=== PATIENT | female | born 1960 | race Caucasian/White ===

== ENCOUNTER → 2017-03-20 | Outpatient (CLI) | payer OTHER ==
--- NOTE | 2017-03-20 14:41 | NM ---
EXAMINATION TYPE: NM bone scan whole body DATE OF EXAM: 03/20/2017 COMPARISON: NONE HISTORY: pain. Diagnosis: pain in left shoulder. left shoulder sprain. 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 rule out pathologic left clavicle fracture Delayed whole-body scanning was performed following the injection of 25.3 mCi Tc 99m MDP. Images acq uired 3 hours post injection. FINDINGS: There is increased radiotracer accumulation involving the mid left clavicle compatible with the site of fracture. Findings are indeterminate for cause of fracture such as underlying pathologic component . There is focal increased uptake noted to involve the anterior right rib 6 compatible with acute fra cture. Uptake overlying the left superior pubic ramus could be related to activity within the urinary bladder versus additional fracture. Correlate clinically. Degenerative uptake is seen about the mid thoracic and lower lumbar spine as well as the shoulders, sternoclavicular joints and bilateral ankle s and feet. IMPRESSION: 1. Nonspecific uptake involving the mid left clavicle compatible with the fracture site. 2. Additional fractures suspected involving right rib 6. 3. Uptake overlying the left superior pubic ramus could be related to activity within the urinary summer dder versus additional fracture. Correlate clinically.
== END ==
LOC: RADNMMAIN 10:09
PROVIDERS: ATTEND Orthopaedic Surgery Hand Surgery
DX: S43.402A Unspecified sprain of left shoulder joint, initial encounter (principal)
CPT/HCPCS: 78306; A9503

== ENCOUNTER → 2017-03-27 | Outpatient (CLI) | payer OTHER ==
--- NOTE | 2017-03-27 11:29 | MR ---
EXAMINATION TYPE: MR clavicle LT wo con DATE OF EXAM: 03/27/2017 COMPARISON: Outside radiographs of the left clavicle and nuclear medicine bone scan dated 03/20/2017. HISTORY: fx of unspecified part of lt clavicle. Palpable abnormality. TECHNIQUE: Multiplanar, multisequence images of the left clavicle was performed without intravenous contrast. FINDINGS: The palpable abnormality corresponds to the known noncomminuted, obliquely oriented midshaft clavicul ar fracture as seen on the outside radiographs. There is approximately 6 mm inferior displacement of the distal fracture fragment and 8 mm anterior displacement. Moderate acromioclavicular joint arthrop athy is noted as capsular hypertrophy, marginal osteophytes, and subchondral cyst. Flow-void of the s ubclavian artery is maintained. Flow-void of the subclavian vein is only partially visualized but tess ntain towards the clavicular head. Glenohumeral joint space is maintained. No evidence of bone marrow edema within the visualized humeral head or scapula. Surrounding T1 hypointense and T2 hyperintense edema seen within the subcutaneous tissues of the left supraclavicular and infraclavicular region surrounding the fracture site. Bone marrow edema is also seen at the fracture site. No intramuscular edema is seen of the pectoralis muscles. Left apical consolidation is identified containing air bronchograms as well as groundglass opacities within the inferior field of view in the anterior left upper lobe on the axial T1 weighted sequence. IMPRESSION: 1. Palpable abnormality corresponds to the known displaced midclavicular fracture. Flow-void of the s ubclavian artery is maintained and flow-void of the subclavian vein is only partially visualized but maintained near the clavicular head. Soft tissue swelling is present locally surrounding the fracture site as well as bone marrow edema. 2. Left apical pulmonary consolidation which could relate to pulmonary contusion or airspace disease. Correlation with chest radiograph or CT thorax is recommended to ensure no underlying mass. 3. No pulmonary edema or identifiable fracture within the remaining visualized osseous structures.
== END | disposition home or self-care (01) ==
LOC: RADMRIMAIN 06:54
PROVIDERS: ATTEND Orthopaedic Surgery Hand Surgery
DX: S42.022A Displaced fracture of shaft of left clavicle, initial encounter for closed fracture (principal); J18.1 Lobar pneumonia, unspecified organism; M85.88 Other specified disorders of bone density and structure, other site
CPT/HCPCS: 71550

== ENCOUNTER → 2017-04-02 | Outpatient (CLI) | payer OTHER ==
[2017-04-02 12:30] LABS: Basophils % (A) 1 %; CH 33.8; CHCM 31.9; Eosinophils # (A) 0.2 k/uL (0-0.7); Eosinophils % (A) 2 %; HCT 44.3 % (34.0-46.0); HDW 2.06; Luc # (Auto) 0.14; Luc % (Auto) 2; Lymphocytes # (A) 1.4 k/uL (1.0-4.8); Lymphocytes % (A) 18 %; MCH 33.7 pg (25.0-35.0); MCHC 31.6 g/dL (31.0-37.0); MCV 106.5 fL (80.0-100.0); Macrocytosis Slight; Mean Platelet Volume 7.6; Monocytes # (A) 0.3 k/uL (0-1.0); Monocytes % (A) 4 %; Neutrophils # (A) 5.7 k/uL (1.3-7.7); Neutrophils % (A) 73 %; RBC 4.16 m/uL (3.80-5.40); RDW 12.7 % (11.5-15.5); WBC 7.8 k/uL (3.8-10.6); WBC (Perox) 7.98
[2017-04-02 13:06] LABS: ALT 31 U/L (9-52); AST 23 U/L (14-36); Alkaline Phosphatase 88 U/L (38-126); Anion Gap 9 mmol/L; Blood Urea Nitrogen 12 mg/dL (7-17); Calcium 9.7 mg/dL (8.4-10.2); Carbon Dioxide 30 mmol/L (22-30); Chloride 101 mmol/L (98-107); Glucose 115 mg/dL (74-99); Non-African American GFR(MDRD) >60 (>60 ml/min/1.73 sqM); Potassium 5.1 mmol/L (3.5-5.1); Sodium 140 mmol/L (137-145); Total Bilirubin 0.6 mg/dL (0.2-1.3); Total Protein 7.1 g/dL (6.3-8.2)
== END | disposition home or self-care (01) ==
LOC: LABWHC1 11:11
PROVIDERS: ATTEND Otolaryngology Otolaryngic Allergy
DX: D80.5 Immunodeficiency with increased immunoglobulin M [IgM] (principal); R80.3 Bence Jones proteinuria
CPT/HCPCS: 36415; 80053; 84165; 85025; 86334

== ENCOUNTER → 2017-05-14 | Outpatient (CLI) | payer OTHER ==
--- NOTE | 2017-05-14 19:30 | CT ---
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 Lung lesion and broken left clav icle. CT DLP: 315.30 mGycm Automated exposure control for dose reduction was used. CONTRAST: CT scan of the neck is performed following with IV Contrast, patient injected with 100 mL of Omnipaqu e 300. Axial images are obtained, coronal and sagittal reformatted images are reviewed. FINDINGS: There is some reticular infiltrates in calcification at the lung apices consistent with scarring. The trachea is midline. Thyroid gland is fairly symmetric. There is surgery on the left side with absenc e of the left jugular vein. There is normal contrast opacification of the vertebral arteries and mauro tid arteries. There is patency of the right jugular vein. Subglottic trachea appears normal. I see no pharyngeal mass. Epiglottis appears normal. The tonsils and adenoids appear normal. The tongue appears fairly symmetri c. I see no evidence of a tongue mass. The mandibular ring is intact. Cervical spine is intact. There is lucency around the lower tooth posteriorly in the left hemimandible consistent with significant elliott odontal disease. I see no mandible fracture. There is absence of left sternocleidomastoid muscle. The re is significant atrophy of the right parotid gland. Right submandibular salivary gland show signifi cant atrophy. There has been apparent resection of the left parotid gland and left submandibular sali vary gland. IMPRESSION: Scarring at the lung apices. Previous surgery with significant resection of structures i n the left anterior neck. I see no sign of recurrent tumor. No evidence of a pharyngeal mass. Periodontal disease involving the posterior left hemimandible.
== END | disposition home or self-care (01) ==
LOC: RADCTMAIN 16:07
PROVIDERS: ATTEND Otolaryngology Otolaryngic Allergy
DX: J98.4 Other disorders of lung (principal)
CPT/HCPCS: 70491; Q9967

== ENCOUNTER → 2017-06-25 | Outpatient (CLI) | payer OTHER ==
--- NOTE | 2017-06-25 15:07 | CT ---
EXAMINATION TYPE: CT abdomen pelvis w con DATE OF EXAM: 06/25/2017 COMPARISON: NONE HISTORY: Right flank pain and hematuria. CT DLP: 414.7 mGycm CONTRAST: CT scan of the abdomen and pelvis is performed with Oral Contrast and with IV Contrast, patient injec martha with 100 mL of Omnipaque 300. FINDINGS: LUNG BASES-: No visible nodule. No infiltrate. Basilar linear atelectasis. LIVER/GB: No calcified gallstones. No space occupying hepatic lesion. Biliary tree is of normal ca liber. PANCREAS: No inflammation. No distinct mass. SPLEEN: No splenic enlargement. No lesion seen. ADRENALS: No nodule. No thickening. KIDNEYS/BLADDER: No hydronephrosis. No nephrolithiasis. No disctinct renal mass. Urinary bladder g rossly unremarkable. BOWEL: Normal appendix. Normal bowel caliber. No inflammation. Moderate fecal stasis. GENITAL ORGANS: No gross abnormality. LYMPH NODES: No greater than 1cm abdominal or pelvic lymph nodes are appreciated. AORTA: No significant abnormality. OSSEOUS STRUCTURES: No significant abnormality is seen. OTHER: No significant additional abnormality is seen. IMPRESSION: 1. Moderate fecal stasis. No acute intra-abdominal process appreciated at this time.
== END | disposition home or self-care (01) ==
LOC: RADCTMAIN 12:45
PROVIDERS: ATTEND Family Medicine
DX: R93.3 Abnormal findings on diagnostic imaging of other parts of digestive tract (principal); R10.9 Unspecified abdominal pain; Z88.2 Allergy status to sulfonamides
CPT/HCPCS: 74177; Q9967

== ENCOUNTER → 2018-11-06 | Outpatient (CLI) | payer OTHER ==
--- NOTE | 2018-11-06 15:11 | XR ---
EXAMINATION TYPE: XR chest 2V DATE OF EXAM: 11/06/2018 COMPARISON: NONE TECHNIQUE: PA and lateral views submitted. HISTORY: Chest pain FINDINGS: Right basilar subsegmental atelectasis or infiltrate.. There is an age-indeterminate moderate compre ssion deformity midthoracic spine. Hyperinflation compatible COPD. Calcified granuloma right upper lo be. No pneumothorax. Metallic staple overlying the soft tissues of the neck and upper mediastinum. IMPRESSION: 1. COPD. Age-indeterminate compression deformity midthoracic spine. 2. Subsegmental right basilar atelectasis or infiltrate consider follow-up CT scan.
== END | disposition home or self-care (01) ==
LOC: RADXRMAIN 14:41
PROVIDERS: ATTEND Nurse Practitioner Family
DX: J44.9 Chronic obstructive pulmonary disease, unspecified (principal); R13.10 Dysphagia, unspecified
CPT/HCPCS: 71046

== ENCOUNTER 2019-01-03 20:43 | Emergency (ER) | payer OTHER ==
[2019-01-03 21:28] VITALS: TEMP 98.3
[2019-01-03 22:36] LABS: Anisocytosis Slight; Basophils % (A) 0 %; Eosinophils # (A) 0.3 k/uL (0-0.7); Eosinophils % (A) 4 %; HCT 38.8 % (34.0-46.0); HGB 11.7 gm/dL (11.4-16.0); Hypochromasia Slight; Lymphocytes # (A) 2.3 k/uL (1.0-4.8); Lymphocytes % (A) 27 %; MCH 25.6 pg (25.0-35.0); MCHC 30.1 g/dL (31.0-37.0); Mean Platelet Volume 6.8; Monocytes # (A) 0.4 k/uL (0-1.0); Monocytes % (A) 4 %; Neutrophils # (A) 5.3 k/uL (1.3-7.7); Neutrophils % (A) 62 %; Platelet Count 329 k/uL (150-450); RBC 4.56 m/uL (3.80-5.40); RDW 18.6 % (11.5-15.5); WBC 8.6 k/uL (3.8-10.6)
[2019-01-03 22:56] LABS: ALT 11 U/L (9-52); AST 25 U/L (14-36); Albumin 4.5 g/dL (3.5-5.0); Alkaline Phosphatase 88 U/L (38-126); Anion Gap 8 mmol/L; Blood Urea Nitrogen 21 mg/dL (7-17); Calcium 9.8 mg/dL (8.4-10.2); Carbon Dioxide 27 mmol/L (22-30); Chloride 105 mmol/L (98-107); Glucose 96 mg/dL (74-99); Potassium 4.6 mmol/L (3.5-5.1); Sodium 140 mmol/L (137-145); Total Bilirubin 0.3 mg/dL (0.2-1.3); Total Protein 7.9 g/dL (6.3-8.2)
--- NOTE | 2019-01-04 01:12 | US ---
EXAM: US Duplex Left Upper Extremity Veins CLINICAL HISTORY: ITS.REASON US Reason: Pain TECHNIQUE: Real-time duplex ultrasound scan of the left upper extremity veins integrating B-mode two-dimensional vascular structure, Doppler spectral analysis, color flow Doppler imaging and compression. COMPARISON: No relevant prior studies available. FINDINGS: Deep veins: Unremarkable. No DVT in the internal jugular, subclavian, axillary, or brachial veins. The veins demonstrate normal color flow, are normally compressible, with normal phasic flow and/or augmentation response. Superficial veins: Unremarkable. No thrombus in the visualized basilic and cephalic veins. IMPRESSION: No DVT.
[2019-01-04] MEDS ORDERED: SODIUM CHLORIDE 0.9% 1,000 ML IV STA (02:07)
[2019-01-04 02:31] VITALS: BP 114/58; PULSE 71; RESP 20
--- NOTE | 2019-01-04 02:31 | CT ---
EXAM: CT Angiography Chest With Intravenous Contrast CLINICAL HISTORY: ITS.REASON CT Reason: Pain TECHNIQUE: Axial computed tomographic angiography images of the chest with intravenous contrast using pulmonary embolism protocol. CTDI is 8 mGy and DLP is 207 mGy-cm. This CT exam was performed using one or more of the following dose reduction techniques: automated exposure control, adjustment of the mA and/or kV according to patient size, and/or use of iterative reconstruction technique. MIP reconstructed images were created and reviewed. COMPARISON: Chest x-ray 11/06/18 FINDINGS: Pulmonary arteries: No filling defects. Aorta: No thoracic aortic aneurysm. Lungs: No mass. No consolidation. Mild bronchiectasis and scarring in the bilateral lung apices. Scarring in the bilateral lower lobes. Pleural space: No significant effusion. No pneumothorax. Heart: No cardiomegaly or pericardial effusion. Bones/joints: No acute fracture or dislocation. Mild wedging of T8, seen on the prior radiograph. Soft tissues: Unremarkable. Lymph nodes: No enlarged lymph nodes. IMPRESSION: No acute intrathoracic findings. Chronic pulmonary changes as described. Mild chronic wedging of T8 (20-30%).
--- NOTE | 2019-01-04 02:46 | ED ---
General Adult HPI - General Chief complaint: Extremity Problem,Nontraumatic Stated complaint: L Arm Swelling Time Seen by Provider: 01/03/19 21:30 Source: patient, RN notes reviewed, old records reviewed Mode of arrival: ambulatory Limitations: no limitations - History of Present Illness Initial comments: 58-year-old female patient has no history of squamous cell oropharyngeal cancer, COPD presents ED with chief complaint of swollen left upper extremity. Patient was reportedly advised by primary care provider to present to ED to rule out a blood clot in her left upper extremity. Patient reports that she believes that she has had some mildly worsened shortness of breath over the last month. She states that she is not currently feel short of breath. Patient also reports that she has had intermittent episodes of transient chest pain over the last month. Pt states that these are sharp stabbing pains and short in duration. Denies any association with exertion, denies any other complaints. Patient states that she cannot be due to hysterectomy. Patient denies any abdominal pain. Patient denies any other complaints. Systemic: Pt denies fatigue, myalgia, fever/chills, rash. Pt denies weakness, night sweats, weight loss. Neuro: Pt denies headache, visual disturbances, syncope or pre-syncope. HEENT: Pt denies ocular discharge or irritation, otalgia, rhinorrhea, pharyngitis or notable lymphadenopathy. Cardiopulmonary: Pt denies chest pain, SOB, heart palpitations, dyspnea on exertion. Abdominal/GI: Pt denies abdominal pain, n/v/d. : Pt denies dysuria, burning w/ urination, frequency/urgency. Denies new onset urinary or bowel incontinence. MSK: Pt denies myalgia, loss of strength or function in extremities. Neuro: Pt denies new onset weakness, paresthesias. - Related Data Home Medications Medication Instructions Recorded Confirmed Acetaminophen with Codeine 30 ml PO QID 10/08/14 10/08/14 [Tylenol w/Codeine Elixir 120mg-12mg/5mL] Allergies Allergy/AdvReac Type Severity Reaction Status Date / Time Sulfa (Sulfonamide Allergy Itching Verified 01/03/19 21:28 Antibiotics) Review of Systems ROS Statement: Those systems with pertinent positive or pertinent negative responses have been documented in the HPI. ROS Other: All systems not noted in ROS Statement are negative. 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 ( no saliva as result) WITH CHEMO & RADIATION [place] 2002, FELL AND FX LEFT WRIST 05/13/14- History of Any Multi-Drug Resistant Organisms: MRSA Date of last positivie culture/infection: 2017 MDRO Source:: unknown Past Surgical History: Adenoidectomy, Appendectomy, Bladder Surgery, Hysterectomy, Tonsillectomy, Tubal Ligation Additional Past Surgical History / Comment(s): NECK DISECTION, BLADDER SUSPENSION, HEEL SPURS, PAPILOMA WARTS CAUSED BY CHEMO IN THROAT REMOVED mult times, facial reconstruction Past Anesthesia/Blood Transfusion Reactions: Family History of Problems w/ Anesthesia, Postoperative Nausea & Vomiting (PONV) Additional Past Anesthesia/Blood Transfusion Reaction / Comment(s): mouth does not open "real wide" per pt but states no problem with intubation with previous surgeries. Past Psychological History: No Psychological Hx Reported Smoking Status: Former smoker Past Alcohol Use History: Daily Past Drug Use History: None Reported - Past Family History Father Family Medical History: Cancer Additional Family Medical History / Comment(s): NON-HODGKINS LYMPHOMA General Exam - General Exam Comments Initial Comments: Constitutional: NAD, AOX3, Pt has pleasant affect. HEENT: NC/AT, trachea midline, neck supple, no lymphadenopathy. Posterior pharynx non erythematous, without exudates. External ears appear normal, without discharge. Mucous membranes moist. Eyes PERRLA, EOM intact. There is no scleral icterus. No pallor noted. Cardiopulmonary: RRR, no murmurs, rubs or gallops, no JVD noted. Lungs CTAB in anterior and posterior miller. No peripheral edema. Abdominal exam: Abdomen soft and non-distended. Abdomen non-tender to palpation in all 4 quadrants. Bowel sounds active in LLQ. No hepatosplenomegaly. No ecchymosis Neuro: CN II-XII grossly intact. No nuchal rigidity. MSK: Left upper extremity mildly edematous. No erythema, warmth, tenderness to palpation. Sensation intact, strength intact, radial pulse +2. No posterior calf tenderness bilaterally, homans sign negative bilaterally. Posterior tibialis and radial pulse +2 bilaterally. Sensation intact in upper and lower extremities. Full active ROM in upper and lower extremities, 5/5 stregnth. Limitations: no limitations Course Vital Signs 01/03/19 01/04/19 21:24 02:30 Temperature 98.3 F Pulse Rate 90 71 Respiratory 18 20 Rate Blood Pressure 124/62 114/58 O2 Sat by Pulse 96 99 Oximetry Medical Decision Making - Medical Decision Making 58-year-old female patient has no history of squamous cell oropharyngeal cancer, COPD presents ED with chief complaint of swollen left upper extremity. Patient was reportedly advised by primary care provider to present to ED to rule out a blood clot in her left upper extremity. Patient reports that she believes that she has had some mildly worsened shortness of breath over the last month. She states that she is not currently feel short of breath. Patient also reports sumi t she has had intermittent episodes of transient chest pain over the last month. Pt states that these are sharp stabbing pains and short in duration. Denies any association with exertion, denies any other complaints. Patient states that she cannot be due to hysterectomy. Patient denies any abdominal pain. Patient denies any other complaints. Patient also stable, afebrile. Physical exam displayed: Left upper extremity mildly edematous. No erythema, warmth, tenderness to palpation. Sensation intact, strength intact, radial pulse +2. Laboratory investigations revealed nonspecific CBC, CMP. Troponin negative. D- dimer very mildly elevated at 0.60. Venous Doppler displayed no DVT. CTA displayed no acute intrathoracic findings. Chronic pulmonary changes as described. Mild chronic wedging of T8. Patient discharged will be referred to orthopedic for follow-up. Patient to follow up with primary care provider. Patient return to ER if condition worsens in any way. Case discussed with Dr. Muir. - Lab Data Result diagrams: 01/03/19 22:18 01/03/19 22:18 Lab Results 01/03/19 01/03/19 01/03/19 Range/Units 22:18 22:18 22:18 WBC 8.6 (3.8-10.6) k/uL RBC 4.56 (3.80-5.40) m/uL Hgb 11.7 (11.4-16.0) gm/dL Hct 38.8 (34.0-46.0) % MCV 85.0 (80.0-100.0) fL MCH 25.6 (25.0-35.0) pg MCHC 30.1 L (31.0-37.0) g/dL RDW 18.6 H (11.5-15.5) % Plt Count 329 (150-450) k/uL Neutrophils % 62 % Lymphocytes % 27 % Monocytes % 4 % Eosinophils % 4 % Basophils % 0 % Neutrophils # 5.3 (1.3-7.7) k/uL Lymphocytes # 2.3 (1.0-4.8) k/uL Monocytes # 0.4 (0-1.0) k/uL Eosinophils # 0.3 (0-0.7) k/uL Basophils # 0.0 (0-0.2) k/uL Hypochromasia Slight Anisocytosis Slight D-Dimer 0.60 H (<0.60) mg/L FEU Sodium 140 (137-145) mmol/L Potassium 4.6 (3.5-5.1) mmol/L Chloride 105 (98-107) mmol/L Carbon Dioxide 27 (22-30) mmol/L Anion Gap 8 mmol/L BUN 21 H (7-17) mg/dL Creatinine 0.53 (0.52-1.04) mg/dL Est GFR (CKD-EPI)AfAm >90 (>60 ml/min/1.73 sqM) Est GFR (CKD-EPI)NonAf >90 (>60 ml/min/1.73 sqM) Glucose 96 (74-99) mg/dL Calcium 9.8 (8.4-10.2) mg/dL Total Bilirubin 0.3 (0.2-1.3) mg/dL AST 25 (14-36) U/L ALT 11 (9-52) U/L Alkaline Phosphatase 88 (38-126) U/L Troponin I (0.000-0.034) ng/mL Total Protein 7.9 (6.3-8.2) g/dL Albumin 4.5 (3.5-5.0) g/dL 01/03/19 Range/Units 22:18 WBC (3.8-10.6) k/uL RBC (3.80-5.40) m/uL Hgb (11.4-16.0) gm/dL Hct (34.0-46.0) % MCV (80.0-100.0) fL MCH (25.0-35.0) pg MCHC (31.0-37.0) g/dL RDW (11.5-15.5) % Plt Count (150-450) k/uL Neutrophils % % Lymphocytes % % Monocytes % % Eosinophils % % Basophils % % Neutrophils # (1.3-7.7) k/uL Lymphocytes # (1.0-4.8) k/uL Monocytes # (0-1.0) k/uL Eosinophils # (0-0.7) k/uL Basophils # (0-0.2) k/uL Hypochromasia Anisocytosis D-Dimer (<0.60) mg/L FEU Sodium (137-145) mmol/L Potassium (3.5-5.1) mmol/L Chloride (98-107) mmol/L Carbon Dioxide (22-30) mmol/L Anion Gap mmol/L BUN (7-17) mg/dL Creatinine (0.52-1.04) mg/dL Est GFR (CKD-EPI)AfAm (>60 ml/min/1.73 sqM) Est GFR (CKD-EPI)NonAf (>60 ml/min/1.73 sqM) Glucose (74-99) mg/dL Calcium (8.4-10.2) mg/dL Total Bilirubin (0.2-1.3) mg/dL AST (14-36) U/L ALT (9-52) U/L Alkaline Phosphatase (38-126) U/L Troponin I <0.012 (0.000-0.034) ng/mL Total Protein (6.3-8.2) g/dL Albumin (3.5-5.0) g/dL Disposition Clinical Impression: Left upper extremity swelling, Wedge compression fracture of T8 vertebra Disposition: HOME SELF-CARE Condition: Stable Instructions (If sedation given, give patient instructions): Vertebral Compression Fracture (ED) Additional Instructions: Patient to adhere to previously discussed treatment plan and will take medicat ion(s) as directed. Patient to follow up with PCP in 1-2 days. Patient to return to ED if symptoms do not improve. Follow-up with primary care provider as well as orthopedic consult 1-2 days. Is patient prescribed a controlled substance at d/c from ED?: No Referrals: Yrn Lawton MD [Primary Care Provider] - 1-2 days Juan Carlos Cooper MD [Medical Doctor] - 1-2 days
== END 2019-01-04 03:03 | disposition home or self-care (01) ==
LOC: EC 20:43
DX: M79.89 Other specified soft tissue disorders (principal); M48.54XA Collapsed vertebra, not elsewhere classified, thoracic region, initial encounter for fracture; R79.1 Abnormal coagulation profile; Z87.891 Personal history of nicotine dependence; Z88.2 Allergy status to sulfonamides; Z79.891 Long term (current) use of opiate analgesic; Z86.14 Personal history of Methicillin resistant Staphylococcus aureus infection; Z85.828 Personal history of other malignant neoplasm of skin; Z85.810 Personal history of malignant neoplasm of tongue; Z92.21 Personal history of antineoplastic chemotherapy; Z92.3 Personal history of irradiation; Z98.890 Other specified postprocedural states
CPT/HCPCS: 36415; 93005; 85379; 80053; 84484; 85025; 93971; 71275; 99284; Q9967

== ENCOUNTER → 2019-03-04 | Outpatient (CLI) | payer OTHER ==
--- NOTE | 2019-03-04 10:35 | BD ---
EXAMINATION TYPE: Axial Bone Density DATE OF EXAM: 03/04/2019 COMPARISON: 2007 CLINICAL HISTORY: age related osteoporosis Height: 5' 1/2 Weight: 120 FRAX RISK QUESTIONS: Family History (Parent hip fracture): y History of Fracture in Adulthood: y Secondary Osteoporosis: 3. Menopause before 45: y RISK FACTORS HISTORY OF: History of Wrist Fracture: [place] When: child Surgery to Wrist : left): When: 2014 Family History of Osteoporosis: y Active: y Postmenopausal woman: y Lost more than 2 inches in height since high school: y Frequent falls: y MEDICATIONS: Thyroid Medications: Which medication: Levothyroxine How Lon months Additional Medications: pain Additional History: squamous cell cancer 2002 , chemo and radiation, 2002, 2017 jaw replacement , trachea, now ensure EXAM MEASUREMENTS: Bone mineral densitometry was performed using the [employer] System. Bone mineral density as measured about the Lumbar spine is: ----- L1-L4(G/cm2): 0.721 T Score Values are as follows: ----- L2: -4.5 ----- L3: -4.0 ----- L4: -3.7 ----- L1-L4: -3.8 Bone mineral density has: Decreased -22.8% since study of: 02/11/2008 Bone mineral density about the R hip (g/cm2): 0.594 Bone mineral density about the L hip (g/cm2): 0.614 T Score values are as follows: -----R Neck: -3.2 -----L Neck: -3.1 -----R Total: -3.2 -----L Total: -3.0 Bone mineral density has: Decreased -18.0% since study of: 02/11/2008 IMPRESSION: Osteoporosis (T Score less than -2.5). There is increased fracture risk and therapy is usually indicated based on age. Re-Screen 1-2 years. NOTE: T-SCORE=SD OF THE YOUNG ADULT MEAN.
--- NOTE | 2019-03-06 12:00 | MM ---
Reason for exam: screening (asymptomatic). Last mammogram was performed 2 years and 10 months ago. History: Patient is postmenopausal and has history of other cancer at age 42. Radiation therapy, 2003. Physical Findings: A clinical breast exam by your physician is recommended on an annual basis and results should be correlated with mammographic findings. MG Screening Mammo w CAD Bilateral CC and MLO view(s) were taken. Prior study comparison: May 08, 2016, bilateral MG screening mammo w CAD. October 01, 2014, bilateral MG screening mammo w CAD. There are scattered fibroglandular densities. No significant changes when compared with prior studies. ASSESSMENT: Negative, BI-RAD 1 RECOMMENDATION: Routine screening mammogram of both breasts in 1 year.
== END | disposition home or self-care (01) ==
LOC: RADMAMWWP 09:21
PROVIDERS: ATTEND Internal Medicine Geriatric Medicine
DX: Z12.31 Encounter for screening mammogram for malignant neoplasm of breast (principal); M81.0 Age-related osteoporosis without current pathological fracture
CPT/HCPCS: 77067; 77080

== ENCOUNTER → 2020-11-19 | Outpatient (CLI) | payer OTHER ==
--- NOTE | 2020-11-21 08:14 | CT ---
EXAMINATION TYPE: CT angio neck DATE OF EXAM: 11/19/2020 HISTORY: left arm pain and numbness COMPARISON: CT neck April 11, 2018 CT DLP: 173.2 mGycm. Automated Exposure Control for Dose Reduction was Utilized. TECHNIQUE: CTA scan of the neck is performed with IV Contrast, patient injected with 100 mL of Isovu e 370, axial images are obtained, coronal and sagittal reformatted images are reviewed. Three-D recon structed images were created on an independent workstation and reviewed FINDINGS: Carotid/Vascular Structures: Normal 3 vessel origin from the aortic arch. Normal origin right common carotid artery from right brachiocephalic artery. No significant focal plaque or stenosis. Stable foc al moderate mixed concentric plaque mid left common carotid artery axial image 38. Remainder of bilat eral common carotid arteries show no significant plaque or stenosis. Mild calcified plaque left carot id bulb extends into proximal internal carotid artery where there is more moderate to severe peripher al calcified plaque that shows interval progression from 2018 study. No significant stenosis is ident ified. Patent right external carotid artery without significant plaque or stenosis. There is moderate mixed plaque left carotid bulb extending into proximal internal and external carotid arteries redemo nstrated without significant stenosis. No significant change from prior studies. Remainder of interna l carotid arteries bilaterally show no significant plaque or stenosis. There is redemonstration of codominant vertebral basilar system patent to basilar artery without sign ificant stenosis. Other: Persistent patchy opacification and mucosal thickening of the ethmoid sinuses bilaterally, rig ht greater than left. Worsening mucosal thickening and opacification anterior inferior right sphenoid sinus. Redemonstration of extensive surgical change left submandibular region. Interval surgery to the naina ble centrally and left aspect and adjacent tissues. Persistent moderate medial apical scarring and honeycombing in the apices and upper lungs. IMPRESSION: Atherosclerotic changes bilaterally without hemodynamically significant stenosis seen in either internal or common carotid artery
== END | disposition home or self-care (01) ==
LOC: RADCTMAIN 17:28
PROVIDERS: ATTEND Internal Medicine Geriatric Medicine
DX: I65.23 Occlusion and stenosis of bilateral carotid arteries (principal)
CPT/HCPCS: 70498; Q9967

== ENCOUNTER → 2021-01-14 | Outpatient (CLI) | payer OTHER ==
--- NOTE | 2021-01-17 03:55 | XR ---
EXAMINATION TYPE: XR chest 2V DATE OF EXAM: 01/14/2021 COMPARISON: 11/06/2018 HISTORY: 60-year-old female aspiration pneumonia TECHNIQUE: Frontal and lateral views FINDINGS: Artifact limits of normal in size. Hyperinflation. Diffuse interstitial density. Patchy opacity media l right base and left midlung. No pleural effusion. Accentuated mid thoracic kyphosis secondary to mi ld anterior wedging deformity, unchanged from prior. IMPRESSION: 1. Borderline heart size. 2. COPD. 3. Mild patchy infiltrate medial right base and left midlung. Correlate for pneumonitis. Follow-up af ter treatment to ensure clearance.
== END | disposition home or self-care (01) ==
LOC: RADXRMAIN 14:19
PROVIDERS: ATTEND Nurse Practitioner Family
DX: J69.0 Pneumonitis due to inhalation of food and vomit (principal); J44.9 Chronic obstructive pulmonary disease, unspecified
CPT/HCPCS: 71046

== ENCOUNTER → 2021-02-28 | Outpatient (CLI) | payer OTHER ==
--- NOTE | 2021-02-28 12:52 | XR ---
EXAMINATION TYPE: XR chest 2V DATE OF EXAM: 02/28/2021 COMPARISON: 01/14/2021 HISTORY: 60 year-old female J6 9.0 TECHNIQUE: Frontal and lateral views FINDINGS: Heart normal size. Aorta within normal limits. Stable calcified nodularity in the upper lungs suggest ing underlying small calcified granulomas. Mild interstitial prominence remains at the right base. Im proved aeration in the left upper lobe. Stable mild anterior wedging deformity mid thoracic spine. IMPRESSION: Previous infiltrate in the left upper lobe has resolved. Some mild density at the right base probably represents atelectasis or scarring.
== END | disposition home or self-care (01) ==
LOC: RADXRMAIN 09:41
PROVIDERS: ATTEND Nurse Practitioner Family
DX: J98.4 Other disorders of lung (principal)
CPT/HCPCS: 71046

== ENCOUNTER 2021-06-23 16:47 | Inpatient (IN) | payer OTHER ==
--- NOTE | 2021-06-23 18:56 | ED ---
General Adult HPI - General Source: patient Mode of arrival: ambulatory Limitations: no limitations <Tam Muñiz - Last Filed: 06/23/21 18:51> <Grazyna Parisi - Last Filed: 06/23/21 23:03> - General Stated complaint: thumb infection - History of Present Illness Initial comments: patient seen for ATP: 60-year-old female presents to the emergency room for a chief complaint of left thumb infection. Patient states that she went to her doctor's office today and was told she had an infection of the left thumb and to come to the hospital. Patient noticed this about 5 days ago now. She saw her primary care doctor today who sent her into the emergency room. Denies any fevers. Patient does have pain with movement of the left thumb. Patient does have a history of MRSA.Patient has no other complaints at this time including shortness of breath, chest pain, abdominal pain, nausea or vomiting, headache, or visual changes. (Tam Muñiz) - Related Data Home Medications Medication Instructions Recorded Confirmed Acetaminophen Tab [Tylenol Tab] 500 mg PO Q6H PRN 06/23/21 06/23/21 Alendronate Sodium [Fosamax] 70 mg PO SANDHU 06/23/21 06/23/21 Apixaban [Eliquis] 5 mg PO BID 06/23/21 06/23/21 Aspirin 81 mg PO DAILY 06/23/21 06/23/21 Gabapentin Oral Soln [Neurontin 900 mg PO TID 06/23/21 06/23/21 Oral Soln] HYDROcodone/APAP 10-325MG [[place] 1 tab PO TID 06/23/21 06/23/21 10-325] Lactose-Reduced Food [Ensure 1 can PO 5XD PRN 06/23/21 06/23/21 Original] Levothyroxine Sodium [Synthroid] 75 mcg PO Q48H 06/23/21 06/23/21 Allergies Allergy/AdvReac Type Severity Reaction Status Date / Time Sulfa (Sulfonamide Allergy Itching Verified 06/23/21 19:44 Antibiotics) Review of Systems ROS Other: All systems not noted in ROS Statement are negative. <Tam Muñiz - Last Filed: 06/23/21 18:51> ROS Other: All systems not noted in ROS Statement are negative. <Grazyna Parisi - Last Filed: 06/23/21 23:03> ROS Statement: Those systems with pertinent positive or pertinent negative responses have been documented in the HPI. 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 ( no saliva as result) WITH CHEMO & RADIATION [place] 2002, FELL AND FX LEFT WRIST 05/13/14- History of Any Multi-Drug Resistant Organisms: MRSA Date of last positivie culture/infection: 2017 MDRO Source:: unknown Past Surgical History: Adenoidectomy, Appendectomy, Bladder Surgery, Hysterectomy, Tonsillectomy, Tubal Ligation Additional Past Surgical History / Comment(s): NECK DISECTION, BLADDER SUSPENSION, HEEL SPURS, PAPILOMA WARTS CAUSED BY CHEMO IN THROAT REMOVED mult times, facial reconstruction Past Anesthesia/Blood Transfusion Reactions: Family History of Problems w/ Anesthesia, Postoperative Nausea & Vomiting (PONV) Additional Past Anesthesia/Blood Transfusion Reaction / Comment(s): mouth does not open "real wide" per pt but states no problem with intubation with previous surgeries. Past Psychological History: No Psychological Hx Reported Smoking Status: Never smoker Past Alcohol Use History: Daily Past Drug Use History: None Reported - Past Family History Father Family Medical History: Cancer Additional Family Medical History / Comment(s): NON-HODGKINS LYMPHOMA <Tam Muñiz P - Last Filed: 06/23/21 18:51> General Exam Limitations: no limitations General appearance: alert Head exam: Present: atraumatic Eye exam: Present: normal appearance, PERRL, EOMI ENT exam: Present: normal exam, mucous membranes moist Extremities exam: Present: tenderness (tenderness to the dorsum of the left IP joint), normal capillary refill (capillary refill less than 2 seconds of the left hand), joint swelling (moderate edema noted of the dorsum of the left thumb with erythema possible abscess). Absent: full ROM (Patient has about 15 flexion and extension of the IP joint of the left thumb.) <Tam Muñiz P - Last Filed: 06/23/21 18:51> Course Vital Signs 06/23/21 18:46 Temperature 97.0 F L Pulse Rate 86 Respiratory 18 Rate Blood Pressure 134/89 O2 Sat by Pulse 98 Oximetry Medical Decision Making - Lab Data Result diagrams: 06/23/21 20:25 06/23/21 20:25 - Radiology Data Radiology results: report reviewed, image reviewed <Grazyna Parisi - Last Filed: 06/23/21 23:03> - Medical Decision Making 60-year-old female patient presents to the emergency department today for evaluation of infection to the left thumb. Was sent in by her primary care physician for IV antibiotics and admission. Physical examination did reveal wh at appears to be an abscess to the dorsal aspect of the left thumb, this is open and exhibiting drainage. White blood cell count is 14.5, ESR 26. Remainder of labs are relatively unremarkable. X-ray shows no evidence for osteomyelitis or foreign body. She was started on vancomycin and Unasyn. She is given pain medication. She'll be admitted to the hospital for further evaluation by orthopedics. Case discussed with my attending Dr. Whipple. (Grazyna Parisi) - Lab Data Lab Results 06/23/21 06/23/21 06/23/21 Range/Units 20:25 20:25 20:25 WBC 14.5 H (3.8-10.6) k/uL RBC 3.95 (3.80-5.40) m/uL Hgb 14.4 (11.4-16.0) gm/dL Hct 41.0 (34.0-46.0) % MCV 103.7 H (80.0-100.0) fL MCH 36.5 H (25.0-35.0) pg MCHC 35.2 (31.0-37.0) g/dL RDW 13.4 (11.5-15.5) % Plt Count 423 (150-450) k/uL MPV 7.4 Neutrophils % 74 % Lymphocytes % 16 % Monocytes % 6 % Eosinophils % 1 % Basophils % 0 % Neutrophils # 10.8 H (1.3-7.7) k/uL Lymphocytes # 2.3 (1.0-4.8) k/uL Monocytes # 0.8 (0-1.0) k/uL Eosinophils # 0.2 (0-0.7) k/uL Basophils # 0.1 (0-0.2) k/uL Macrocytosis Slight ESR (0-20) mm/hr Sodium 136 L (137-145) mmol/L Potassium 4.0 (3.5-5.1) mmol/L Chloride 98 (98-107) mmol/L Carbon Dioxide 28 (22-30) mmol/L Anion Gap 10 mmol/L BUN 14 (7-17) mg/dL Creatinine 0.37 L (0.52-1.04) mg/dL Est GFR (CKD-EPI)AfAm >90 (>60 ml/min/1.73 sqM) Est GFR (CKD-EPI)NonAf >90 (>60 ml/min/1.73 sqM) Glucose 111 H (74-99) mg/dL Plasma Lactic Acid French 0.9 (0.7-2.0) mmol/L Calcium 9.9 (8.4-10.2) mg/dL Total Bilirubin 0.5 (0.2-1.3) mg/dL AST 26 (14-36) U/L ALT 14 (4-34) U/L Alkaline Phosphatase 102 (38-126) U/L Total Protein 8.2 (6.3-8.2) g/dL Albumin 4.6 (3.5-5.0) g/dL 06/23/ Range/Units 20:25 WBC (3.8-10.6) k/uL RBC (3.80-5.40) m/uL Hgb (11.4-16.0) gm/dL Hct (34.0-46.0) % MCV (80.0-100.0) fL MCH (25.0-35.0) pg MCHC (31.0-37.0) g/dL RDW (11.5-15.5) % Plt Count (150-450) k/uL MPV Neutrophils % % Lymphocytes % % Monocytes % % Eosinophils % % Basophils % % Neutrophils # (1.3-7.7) k/uL Lymphocytes # (1.0-4.8) k/uL Monocytes # (0-1.0) k/uL Eosinophils # (0-0.7) k/uL Basophils # (0-0.2) k/uL Macrocytosis ESR 26 H (0-20) mm/hr Sodium (137-145) mmol/L Potassium (3.5-5.1) mmol/L Chloride (98-107) mmol/L Carbon Dioxide (22-30) mmol/L Anion Gap mmol/L BUN (7-17) mg/dL Creatinine (0.52-1.04) mg/dL Est GFR (CKD-EPI)AfAm (>60 ml/min/1.73 sqM) Est GFR (CKD-EPI)NonAf (>60 ml/min/1.73 sqM) Glucose (74-99) mg/dL Plasma Lactic Acid French (0.7-2.0) mmol/L Calcium (8.4-10.2) mg/dL Total Bilirubin (0.2-1.3) mg/dL AST (14-36) U/L ALT (4-34) U/L Alkaline Phosphatase (38-126) U/L Total Protein (6.3-8.2) g/dL Albumin (3.5-5.0) g/dL - Radiology Data X-ray of the left thumb is obtained. Report is reviewed in its entirety. Impression by Dr. Spear shows focal soft tissue nodule and swelling of the dorsal thumb at the level of the interphalangeal joint. No definitive osteomyelitis or radiopaque foreign body. (Grazyna Parisi) Disposition <Tam Muñiz - Last Filed: 06/23/21 18:51> Decision to Admit Reason: Admit from EC Decision Date: 06/23/21 Decision Time: 21:34 <Grazyna Parisi - Last Filed: 06/23/21 23:03> Clinical Impression: Abscess of left thumb Disposition: ADMITTED IP TO THIS [facility] Condition: Serious
[2021-06-23] MEDS ORDERED: VANCOMYCIN IV PER PHARMACY 1 EACH MISC MISCELLANE PRN (19:23)
[2021-06-23] MEDS ORDERED: AMPICILLIN-SULBACTAM 3 GM in SODIUM CHLORIDE 0.9% 100 ML IVPB STA (19:23)
[2021-06-23] MEDS ORDERED: VANCOMYCIN 750 MG in SODIUM CHLORIDE 0.9% 250 ML IVPB STA (19:27)
--- NOTE | 2021-06-23 20:07 | XR ---
EXAMINATION TYPE: XR finger LT DATE OF EXAM: 06/23/2021 CLINICAL HISTORY: Infection. Left thumb pain. TECHNIQUE: Frontal, lateral and oblique coned-down views of the left thumb are obtained. COMPARISON: None FINDINGS: There is focal soft tissue nodule and swelling at the radial and dorsal aspect of the thumb at the level of the interphalangeal joint. There is no osseous erosion or periosteal reaction. No ac hector fracture or dislocation. No radiopaque foreign body. IMPRESSION: Focal soft tissue nodule and swelling of the dorsal thumb at the level of the interphalan geal joint. No definitive osteomyelitis or radiopaque foreign body.
[2021-06-23 20:40] LABS: Basophils # (A) 0.1 k/uL (0-0.2); Basophils % (A) 0 %; Eosinophils # (A) 0.2 k/uL (0-0.7); Eosinophils % (A) 1 %; HGB 14.4 gm/dL (11.4-16.0); Lymphocytes # (A) 2.3 k/uL (1.0-4.8); Lymphocytes % (A) 16 %; MCH 36.5 pg (25.0-35.0); MCHC 35.2 g/dL (31.0-37.0); MCV 103.7 fL (80.0-100.0); Macrocytosis Slight; Mean Platelet Volume 7.4; Monocytes # (A) 0.8 k/uL (0-1.0); Monocytes % (A) 6 %; Neutrophils # (A) 10.8 k/uL (1.3-7.7); Neutrophils % (A) 74 %; Platelet Count 423 k/uL (150-450); RBC 3.95 m/uL (3.80-5.40); RDW 13.4 % (11.5-15.5); WBC 14.5 k/uL (3.8-10.6)
[2021-06-23] MEDS ORDERED: HYDROcodone/APAP 5-325MG 1 EACH TAB PO STA (20:45)
[2021-06-23] MEDS ORDERED: ACETAMINOPHEN TAB 325 MG TAB PO STA (20:45)
[2021-06-23 20:55] LABS: ALT 14 U/L (4-34); AST 26 U/L (14-36); African American GFR (CKD) >90 (>60 ml/min/1.73 sqM); Albumin 4.6 g/dL (3.5-5.0); Alkaline Phosphatase 102 U/L (38-126); Anion Gap 10 mmol/L; Blood Urea Nitrogen 14 mg/dL (7-17); Calcium 9.9 mg/dL (8.4-10.2); Carbon Dioxide 28 mmol/L (22-30); Chloride 98 mmol/L (98-107); Glucose 111 mg/dL (74-99); Non-African American GFR(CKD) >90 (>60 ml/min/1.73 sqM); Sodium 136 mmol/L (137-145); Total Bilirubin 0.5 mg/dL (0.2-1.3); Total Protein 8.2 g/dL (6.3-8.2)
[2021-06-23] MEDS ORDERED: NALOXONE 0.4 MG/ML 1 ML VIAL IV PRN (21:30)
[2021-06-23] MEDS ORDERED: ACETAMINOPHEN TAB 325 MG TAB PO PRN (21:30)
[2021-06-24] MEDS: AMPICILLIN-SULBACTAM 3 GM in SODIUM CHLORIDE 0.9% 100 ML IVPB SCH ×4 (02:08→19:22)
[2021-06-24] MEDS: HYDROcodone/APAP 5-325MG 1 EACH TAB PO PRN ×4 (02:33→18:44)
[2021-06-24] MEDS ORDERED: ACETAMINOPHEN TAB 500 MG TAB PO PRN (05:51)
[2021-06-24] MEDS ORDERED: LACTOSE REDUCED FOOD 400 GM PO PRN (05:51)
[2021-06-24] MEDS: LEVOTHYROXINE 75 MCG TAB PO SCH (06:07)
[2021-06-24] MEDS: HYDROcodone/APAP 10-325MG 1 EACH TAB PO SCH ×3 (09:15→21:24)
[2021-06-24] MEDS: ASPIRIN 81 MG PO SCH (09:16)
[2021-06-24] MEDS: GABAPENTIN 300 MG CAP PO SCH ×3 (09:24→21:24)
[2021-06-24] MEDS: APIXABAN 5 MG TAB PO SCH ×2 (09:28→21:23)
--- NOTE | 2021-06-24 09:41 | P.HPOR ---
History of Present Illness H&P Date: 06/24/21 Chief Complaint: Left thumb pain/redness/drainage The patient's a 60-year-old wwptb-vlop-htbivliy female presents with a five-day history of left thumb pain/swelling/redness/and drainage after doing some gardening. She notes initially she had a blister on the dorsum of her thumb which she lanced obtaining clear fluid. She saw her primary care physician yesterday and was sent to the hospital. She denies fevers or chills. 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 ( no saliva as result) WITH CHEMO & RADIATION [place] 2002, FELL AND FX LEFT WRIST 05/13/14- History of Any Multi-Drug Resistant Organisms: MRSA Date of last positivie culture/infection: 2017 MDRO Source:: unknown Past Surgical History: Adenoidectomy, Appendectomy, Bladder Surgery, Hysterectomy, Tonsillectomy, Tubal Ligation Additional Past Surgical History / Comment(s): NECK DISECTION, BLADDER SUSPENSION, HEEL SPURS, PAPILOMA WARTS CAUSED BY CHEMO IN THROAT REMOVED mult times, facial reconstruction Past Anesthesia/Blood Transfusion Reactions: Family History of Problems w/ Anesthesia, Postoperative Nausea & Vomiting (PONV) Additional Past Anesthesia/Blood Transfusion Reaction / Comment(s): mouth does not open "real wide" per pt but states no problem with intubation with previous surgeries. Past Psychological History: No Psychological Hx Reported Smoking Status: Never smoker Past Alcohol Use History: Daily Past Drug Use History: None Reported - Past Family History Father Family Medical History: Cancer Additional Family Medical History / Comment(s): NON-HODGKINS LYMPHOMA Medications and Allergies Home Medications Medication Instructions Recorded Confirmed Type Acetaminophen Tab [Tylenol Tab] 500 mg PO Q6H PRN 06/23/21 06/23/21 History Alendronate Sodium [Fosamax] 70 mg PO SANDHU 06/23/21 06/23/21 History Apixaban [Eliquis] 5 mg PO BID 06/23/21 06/23/21 History Aspirin 81 mg PO DAILY 06/23/21 06/23/21 History Gabapentin Oral Soln [Neurontin 900 mg PO TID 06/23/21 06/23/21 History Oral Soln] HYDROcodone/APAP 10-325MG [[place] 1 tab PO TID 06/23/21 06/23/21 History 10-325] Lactose-Reduced Food [Ensure 1 can PO 5XD PRN 06/23/21 06/23/21 History Original] Levothyroxine Sodium [Synthroid] 75 mcg PO Q48H 06/23/21 06/23/21 History Allergies Allergy/AdvReac Type Severity Reaction Status Date / Time Sulfa (Sulfonamide Allergy Itching Verified 06/23/21 19:44 Antibiotics) Physical Examination - Wrist & Hand left Location of pain: thumb (Dorsum of the IP joint) Appearance: other (Dorsal abscess over the left thumb IP joint, surrounding erythema and fluctuance) Tenderness with palpation: thumb (IP joint dorsally, nontender over the flexor surface) ROM: thumb IP joint: 60 degrees Results The patient is a well-developed well-nourished female who appears to be in no acute distress. Nontender left shoulder elbow and wrist. No palpable lymphadenopathy. Left thumb dorsal swelling/fluctuance over the IP joint Nailbed intact Nontender of the MCP joint Nontender over the flexor surface - Labs Labs: Abnormal Lab Results - Last 24 Hours (Table) 06/23/21 06/23/21 06/23/21 Range/Units 20:25 20:25 20:25 WBC 14.5 H (3.8-10.6) k/uL MCV 103.7 H (80.0-100.0) fL MCH 36.5 H (25.0-35.0) pg Neutrophils # 10.8 H (1.3-7.7) k/uL ESR 26 H (0-20) mm/hr Sodium 136 L (137-145) mmol/L Creatinine 0.37 L (0.52-1.04) mg/dL Glucose 111 H (74-99) mg/dL H & H 06/23/21 Range/Units 20:25 Hgb 14.4 (11.4-16.0) gm/dL Hct 41.0 (34.0-46.0) % Result Diagrams: 06/23/21 20:25 06/23/21 20:25 - Diagnostic results Wrist/Hand x-ray: report reviewed (No definite osseous involvement) Assessment and Plan Assessment: Left thumb dorsal abscess over the interphalangeal joint Plan: I talked to the patient regarding her condition along with treatment options and this point recommended proceeding with surgical intervention. We'll plan to proceed with incision and drainage with irrigation and debridement. We will evaluate for possible foreign body. She will likely need antibiotic treatment and infectious disease input. Time with Patient: Greater than 30
[2021-06-24] MEDS ORDERED: LACTATED RINGERS 1,000 ML IV ONE (10:57)
[2021-06-24] MEDS ORDERED: ONDANSETRON 4 MG/2 ML VIAL ONE (11:03)
[2021-06-24] MEDS: VANCOMYCIN 750 MG in SODIUM CHLORIDE 0.9% 250 ML IVPB SCH ×2 (11:22→21:24)
[2021-06-24] MEDS ORDERED: PROPOFOL 10 MG/ML 20 ML VIAL IV ONE (11:48)
[2021-06-24] MEDS ORDERED: fentaNYL (PF) 50 MCG/ML 2 ML AMP ONE (11:48)
[2021-06-24] MEDS ORDERED: KETAMINE 10 MG/ML 20 ML VIAL ONE (11:48)
[2021-06-24] MEDS ORDERED: BUPIVACAINE (PF) 0.25% 30 ML VIAL SQ ONE (11:52)
--- NOTE | 2021-06-24 12:19 | P.OP ---
Date of Procedure: 06/24/21 Preoperative Diagnosis: Left thumb dorsal abscess Postoperative Diagnosis: Same Procedure(s) Performed: Incision and drainage/irrigation and debridement left dorsal thumb abscess Anesthesia: MAC, local Surgeon: Nathanael Sweeney Estimated Blood Loss (ml): 1 Pathology: other (Gram stain and cultures) Condition: stable Disposition: PACU Indications for Procedure: The patient is a 60-year-old female presents with a five-day history of left thumb pain/swelling/redness/injuring each after gardening. A discussion of the risks and benefits of operative intervention was made with patient. She opted to proceed. Risks of the procedure to include persistence of infection need for subsequent procedures was discussed. Informed consent was obtained. Operative Findings: As below Description of Procedure: The patient was brought to the operating room, and after induction of IV sedation the left upper extremity was prepped and draped in normal fashion. A digital block was placed in the left thumb utilizing 8 mL of quarter percent plain Marcaine. A [place] drain was used as a tourniquet. The left thumb dorsal abscess measured approximately 1 x 1 cm. The soft tissue was removed sharply with a scalpel. A mild amount of purulence was present. This extended into the subdermal tissues. The subcutaneous tissues were not exposed. It did not did not appear to extend into the joint. The wound edges were sharply debrided with a scalpel into the subdermal tissue. It was copiously irrigated with normal saline. A sterile dressing was applied. The tourniquet was removed. The patient was awoken from sedation and transferred to recovery room in good condition. Blood loss was estimated 1 mL. No complications were incurred.
--- NOTE | 2021-06-24 13:35 | P.HPIM ---
History of Present Illness H&P Date: 06/24/21 Chief Complaint: Abscess of the left thumb with possible osteomyelitis HISTORY OF PRESENT ILLNESS 60-year-old female one of our office patient with past medical history of COPD, squamous cell carcinoma of the tongue, history of osteoporosis, previous history of coagulopathy with blood clot chronic history of neuropathy who presented to the office on 06/23/2021 with severely infected left thumb according to her was gardening last week when she doesn't remember whether she had the puncture by a thorn or had something sharp puncture to part of the thumb developed to have significant pain and discomfort irritation and the blister on the side become much worse overnight. I did time was seen she had redness discomfort irritation with slight swelling of the entire upper extremity as well. With the area looking much worsening infection expected with the possibility of involvement of the bone patient was sent to the emergency department was giving 1 g of vancomycin started on Unasyn to be seen by orthopedic, bone scan was order along with plain x-ray. Her white blood cell was 14,400 with sed rate was 26. Patient COVID-19 was negative, no other abnormality with her lab testing. X-ray of the finger showed focal soft tissue nodular and swelling of the dorsal thumb at the level of the interphalangeal joint no definite osteomyelitis or Radiopaque foreign-body was found. Will consult orthopedic possible need for I@D and possible other surgery. REVIEW OF SYSTEMS Constitutional: No fever, no chills, no night sweats. No weight change. No weakness, fatigue or lethargy. No daytime sleepiness. EENT: History of throat cancer mostly the base of the tongue postradiation and chemotherapy with slight swelling still have slight bit problem opening her mouth wide with slight stiffness of the neck area. Lungs: No shortness of breath, cough, no sputum production. No wheezing. Cardiovascular: No chest pain, no lower extremity edema. No palpitations. No paroxysmal nocturnal dyspnea. No orthopnea. No lightheadedness or dizziness. No syncopal episodes. Abdominal: No abdominal pain. No nausea, vomiting. No diarrhea. No constipation. No bloody or tarry stools.. No loss of appetite. Genitourinary: No dysuria, increased frequency, urgency. No urinary retention. Musculoskeletal: No myalgias. No muscle weakness, no gait dysfunction, no frequent falls. No back pain. No neck pain. Integumentary: Left thumb significantly increased in size with redness or irritation discomfort and infection. Neurologic: No aphasia. No facial droop. No change in mentation. No head injury. No headache. No paralysis. No paresthesia. Psychiatric: No depression. No anxiety. No mood swings. Endocrine: No abnormal blood sugars. No weight change. No excessive sweating or thirst. No cold intolerance. SOCIAL HISTORY She never smoked, no echo abuse, no drug use. Patient does not use any CPAP BiPAP or oxygen at home. FAMILY HISTORY Father from non-Hodgkin's lymphoma, mother had CAD and COPD. Sublingual history of hypertension. PHYSICAL EXAMINATION Gen: This is a 60-year-old looks malnourished does not look in any respiratory distress. HEENT: The neck is more stiff than expected from radiation and still have significantly small opening of the mouth from her tongue cancer and radiation. NECK: Supple. No JVD. No lymphadenopathy. No thyromegaly. Significant stiffness of the neck area. LUNGS: Clear to auscultation. No wheezes or rhonchi. Decreased breath sound in the bases bilaterally. HEART: Regular rate and rhythm. No murmur. ABDOMEN: Soft. Bowel sounds are present. No masses. No tenderness. EXTREMITIES: Significant swelling in the left upper extremity all along but had significant pain and discomfort radiation redness and blister on the left thumb within the area almost half-time [id number] wide with the middle part look like puncture site from something sharp with the area involved all the way to the bone. NEUROLOGICAL: Patient is awake, alert and oriented x3. Cranial nerves 2 through 12 are grossly intact. ASSESSMENT AND PLAN 1. Left thumb abscess: Patient was giving antibiotics originally vancomycin and then Unasyn, surgical consultation along with ID consultation, patient will be going for bone scan along with x-ray repeat lab in 24 hours watch patient hemodynamic over the next day or 2. 2? Of early osteomyelitis: Patient be going for bone scan. 3 squamous cell carcinoma of the base of the tongue: Post chemo and radiation from 2002. 4 history of clotting PE: Patient has been on anticoagulation which will be resume in the afternoon today. 5 mild COPD: Can benefit from rescue inhaler on as-needed basis. 6 hypothyroidism: Most likely aggravated by radiation will continue levothyroxine at 75 g every 2 days. 7 chronic neuropathy: Continue gabapentin 900 mg 3 times a day. 8 chronic pain syndrome: Has been on hydrocodone and gabapentin. 9 history of osteoporosis has been on Fosamax calcium and vitamin D. 10 GI prophylaxis: Patient be on Pepcid 20 mg daily. 11 DVT prophylaxis: Remain on anticoagulation. CODE STATUS: Full code. COVID-19 testing: Was negative, patient was admitted to the hospital during pandemic time of COVID-19 Patient will be admitted to the hospital for a minimum of 2 night stay. 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 ( no saliva as result) WITH CHEMO & RADIATION [place] 2002, FELL AND FX LEFT WRIST 05/13/14- History of Any Multi-Drug Resistant Organisms: MRSA Date of last positivie culture/infection: 2017 MDRO Source:: unknown Past Surgical History: Adenoidectomy, Appendectomy, Bladder Surgery, Hysterectom y, Tonsillectomy, Tubal Ligation Additional Past Surgical History / Comment(s): NECK DISECTION, BLADDER SUSPENSION, HEEL SPURS, PAPILOMA WARTS CAUSED BY CHEMO IN THROAT REMOVED mult times, facial reconstruction Past Anesthesia/Blood Transfusion Reactions: Family History of Problems w/ Anesthesia, Postoperative Nausea & Vomiting (PONV) Additional Past Anesthesia/Blood Transfusion Reaction / Comment(s): mouth does not open "real wide" per pt but states no problem with intubation with previous surgeries. Past Psychological History: No Psychological Hx Reported Smoking Status: Never smoker Past Alcohol Use History: Daily Past Drug Use History: None Reported - Past Family History Father Family Medical History: Cancer Additional Family Medical History / Comment(s): NON-HODGKINS LYMPHOMA Medications and Allergies Home Medications Medication Instructions Recorded Confirmed Type Acetaminophen Tab [Tylenol Tab] 500 mg PO Q6H PRN 06/23/21 06/23/21 History Alendronate Sodium [Fosamax] 70 mg PO SANDHU 06/23/21 06/23/21 History Apixaban [Eliquis] 5 mg PO BID 06/23/21 06/23/21 History Aspirin 81 mg PO DAILY 06/23/21 06/23/21 History Gabapentin Oral Soln [Neurontin 900 mg PO TID 06/23/21 06/23/21 History Oral Soln] HYDROcodone/APAP 10-325MG [[place] 1 tab PO TID 06/23/21 06/23/21 History 10-325] Lactose-Reduced Food [Ensure 1 can PO 5XD PRN 06/23/21 06/23/21 History Original] Levothyroxine Sodium [Synthroid] 75 mcg PO Q48H 06/23/21 06/23/21 History Allergies Allergy/AdvReac Type Severity Reaction Status Date / Time Sulfa (Sulfonamide Allergy Itching Verified 06/23/21 19:44 Antibiotics) Physical Exam Vitals: Vital Signs Temp Pulse Pulse Resp BP BP BP 06/24/21 12:48 85 16 125/55 06/24/21 12:33 84 16 150/68 06/24/21 12:18 97.8 F 97 14 166/74 06/24/21 10:44 96.8 F L 77 16 183/81 06/24/21 10:43 97.9 F 76 16 109/76 06/24/21 06:04 75 16 105/73 06/24/21 02:13 73 17 130/66 06/23/21 18:46 97.0 F L 86 18 134/89 Pulse Ox 06/24/21 12:48 93 L 06/24/21 12:33 96 06/24/21 12:18 95 06/24/21 10:44 06/24/21 10:43 98 06/24/21 06:04 96 06/24/21 02:13 95 06/23/21 18:46 98 Intake and Output 06/23/21 06/24/21 06/24/21 22:59 06:59 14:59 Intake Total 350 Output Total 2 Balance 348 Intake: IV 350 Output: Estimated Blood Loss 2 Other: Weight 46.266 kg Results CBC & Chem 7: 06/23/21 20:25 06/23/21 20:25 Labs: Abnormal Lab Results - Last 24 Hours (Table) 06/23/21 06/23/21 06/23/21 Range/Units 20:25 20:25 20:25 WBC 14.5 H (3.8-10.6) k/uL MCV 103.7 H (80.0-100.0) fL MCH 36.5 H (25.0-35.0) pg Neutrophils # 10.8 H (1.3-7.7) k/uL ESR 26 H (0-20) mm/hr Sodium 136 L (137-145) mmol/L Creatinine 0.37 L (0.52-1.04) mg/dL Glucose 111 H (74-99) mg/dL Microbiology - Last 24 Hours (Table) 06/24/21 02:00 Wound Culture - Preliminary Finger - Left First Thrombosis Risk Factor Assmnt - Choose All That Apply Each Risk Factor Represents 2 Points: Age 61-74 years Each Risk Factor Represents 3 Points: History of DVT/PE Thrombosis Risk Factor Assessment Total Risk Factor Score: 5 Thrombosis Risk Factor Assessment Level: High Risk
[2021-06-24 14:06] VITALS: BMI 18.0
--- NOTE | 2021-06-24 16:59 | NM ---
EXAMINATION TYPE: NM bone 3 phase DATE OF EXAM: 06/24/2021 COMPARISON: Radiograph 06/23/2021 and chest radiograph 02/28/2021. HISTORY: 60-year-old female pain, osteomyelitis of the left thumb TECHNIQUE: Triple phase bone scintigraphy was performed following the injection of 24.2 mCi Tc 99m MD P. Immediate images and 4.5 hours post injection images acquired. Imaging centered at the bilateral distal upper extremities. Delayed images of the whole body. FINDINGS: There is asymmetric hyperemia on flow images to the left hand especially the left thumb. Pool images show similar hyperemia to the left hand, especially the thumb and the region of the thena r eminence. Delayed scan shows increased focal uptake at the level of the left first DIP joint and patchy increas ed activity about the wrist joint. Delayed whole body images show degenerative activity at the knees. There is abnormal increased activi ty projecting along the left mid clavicle, right shoulder, and right first rib end. IMPRESSION: 1. Three-phase bone scan abnormality to the left thumb. Unable to exclude osteomyelitis. 2. Abnormal activity involving the left mid clavicle. Clinically correlate. Review of the patient's radiograph seems to show a and displaced clavicular shaft fracture.
--- NOTE | 2021-06-24 23:04 | P.CONS ---
History of Present Illness - Reason for Consult Consult date: 06/24/21 left thumb infection Requesting physician: Yrn Lawton - Chief Complaint left thumb pain and swelling x 5 days - History of Present Illness History of present illness : Patient is 60-year-old female presenting to the ER last evening for evaluation of left thumb infection apparently the patient symptoms started about a week ago and the patient apparently was working outside and may have caught a small trauma patient noticed that the area started to blister up and did have some fluid collection then she started to drain her with a needle fluid was mostly clear over the next few days the patient noticed the left thumb becoming more swollen red and painful patient described the pain to be throbbing 6-7 out of 10 had no radiation but denies any high-grade fever or chills on presentation to the ER the patient was afebrile and no fever was recorded subsequently patient did have white count of 14.5 with a left shift kidney function was normal smith PCR was negative blood culture culture currently pending patient did have x-rays of the finger focal soft tissue nodule and swelling of the dorsal thumb at the level of the interphalangeal joint patient subsequently has been evaluated by orthopedics she was taken to the OR and status post drainage of the abscess which was noted to superficial not extending down to the muscle or to the joint patient is currently being treated with Unasyn and vancomycin infectious disease was consulted for further managem ent of antibiotic therapy Review of system: CONSTITUTIONAL: Positive for weakness denies high-grade stevo with the fever. EYES: No complaint. ENT: No complaint. RESPIRATORY: No complaint. CARDIOVASCULAR: No complaint. GENITOURINARY: No complaint. GASTROINTESTINAL: No complaint. MUSCULOSKELETAL: As per history of present illness. INTEGUMENTARY: No complaint. PSYCHOLOGIC: No complaint. ENDOCRINE: No complaint. NEUROLOGIC: No complaint. Past medical history : Reviewed, documented below Past surgical history : Reviewed, documented below Social history: Reviewed, documented below Medications: Reviewed, as documented below EXAMINATION: Vital sigans= Reviewed and documented below GENERAL DESCRIPTION: Middle-aged female lying in bed, no distress. No tachypnea or accessory muscle of respiration use. HEENT: Shows Pallor , no scleral icterus. Oral mucous membrane is dry. NECK: Trachea central, no thyromegaly. LUNGS: Unlabored breathing. Clear to auscultation anteriorly. No wheeze or crackle. HEART: S1, S2, regular rate and rhythm. ABDOMEN: Soft, no tenderness , guarding or rigidity EXTREMITIES: Left thumb is currently dressed in the OR dressing no drainage on the dressing. SKIN: No rash, no masses palpable. NEUROLOGICAL: The patient is awake, alert, oriented x3, mood and affect normal. LABS AND RADIOLOGY: Reviewed results see below Assessment : Patient presented to hospital with left thumb abscess started about a week ago possibly traumatic and failed to respond to the local treatment that has been done by the patient now with evidence of an abscess which was superfi cial not extend over the muscle of the joint and likely from gram-positive skin juan Plan: 1-vancomycin pharmacy to dose with a target trough of 15 while watching kidney function and Vanco trough closely. 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 ( no saliva as result) WITH CHEMO & RADIATION [place] 2002, FELL AND FX LEFT WRIST 05/13/14- History of Any Multi-Drug Resistant Organisms: MRSA Year Discovered:: 2017 MDRO Source:: unknown Past Surgical History: Adenoidectomy, Appendectomy, Bladder Surgery, Hysterectomy, Tonsillectomy, Tubal Ligation Additional Past Surgical History / Comment(s): NECK DISECTION, BLADDER SUSPENSION, HEEL SPURS, 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 Past Psychological History: No Psychological Hx Reported Smoking Status: Never smoker Past Alcohol Use History: Daily Past Drug Use History: None Reported - Past Family History Father Family Medical History: Cancer Additional Family Medical History / Comment(s): NON-HODGKINS LYMPHOMA Medications and Allergies Home Medications Medication Instructions Recorded Confirmed Type Acetaminophen Tab [Tylenol Tab] 500 mg PO Q6H PRN 06/23/21 06/23/21 History Alendronate Sodium [Fosamax] 70 mg PO SANDHU 06/23/21 06/23/21 History Apixaban [Eliquis] 5 mg PO BID 06/23/21 06/23/21 History Aspirin 81 mg PO DAILY 06/23/21 06/23/21 History Gabapentin Oral Soln [Neurontin 900 mg PO TID 06/23/21 06/23/21 History Oral Soln] HYDROcodone/APAP 10-325MG [Rog[place] 1 tab PO TID 06/23/21 06/23/21 History 10-325] Lactose-Reduced Food [Ensure 1 can PO 5XD PRN 06/23/21 06/23/21 History Original] Levothyroxine Sodium [Synthroid] 75 mcg PO Q48H 06/23/21 06/23/21 History Allergies Allergy/AdvReac Type Severity Reaction Status Date / Time Sulfa (Sulfonamide Allergy Itching Verified 06/23/21 19:44 Antibiotics) Physical Exam Vitals: Vital Signs Temp Pulse Pulse Resp BP BP BP 06/24/21 14:21 98.2 F 71 19 140/66 06/24/21 12:48 85 16 125/55 06/24/21 12:33 84 16 150/68 06/24/21 12:18 97.8 F 97 14 166/74 06/24/21 10:44 96.8 F L 77 16 183/81 06/24/21 10:43 97.9 F 76 16 109/76 06/24/21 06:04 75 16 105/73 06/24/21 02:13 73 17 130/66 06/23/21 18:46 97.0 F L 86 18 134/89 Pulse Ox 06/24/21 14:21 06/24/21 12:48 93 L 06/24/21 12:33 96 06/24/21 12:18 95 06/24/21 10:44 06/24/21 10:43 98 06/24/21 06:04 96 06/24/21 02:13 95 06/23/21 18:46 98 Intake and Output 06/24/21 06/24/21 06/24/21 06:59 14:59 22:59 Intake Total 590 Output Total 2 Balance 588 Intake: IV 350 Oral 240 Output: Estimated Blood Loss 2 Other: Weight 46.266 kg Results CBC & Chem 7: 06/23/21 20:25 06/23/21 20:25 Labs: Abnormal Lab Results - Last 24 Hours (Table) 06/23/21 06/23/21 06/23/21 Range/Units 20:25 20:25 20:25 WBC 14.5 H (3.8-10.6) k/uL MCV 103.7 H (80.0-100.0) fL MCH 36.5 H (25.0-35.0) pg Neutrophils # 10.8 H (1.3-7.7) k/uL ESR 26 H (0-20) mm/hr Sodium 136 L (137-145) mmol/L Creatinine 0.37 L (0.52-1.04) mg/dL Glucose 111 H (74-99) mg/dL Microbiology - Last 24 Hours (Table) 06/24/21 02:00 Wound Culture - Preliminary Finger - Left First
[2021-06-25] MEDS: AMPICILLIN-SULBACTAM 3 GM in SODIUM CHLORIDE 0.9% 100 ML IVPB SCH ×3 (02:23→14:10)
[2021-06-25 08:00] LABS: African American GFR (CKD) >90 (>60 ml/min/1.73 sqM); Non-African American GFR(CKD) >90 (>60 ml/min/1.73 sqM)
[2021-06-25] MEDS ORDERED: VANCOMYCIN TROUGH DUE 1 EACH MISC MISCELLANE ONE (08:00)
[2021-06-25] MEDS: ASPIRIN 81 MG PO SCH (08:23)
[2021-06-25] MEDS: APIXABAN 5 MG TAB PO SCH ×2 (08:23→20:42)
[2021-06-25] MEDS: HYDROcodone/APAP 10-325MG 1 EACH TAB PO SCH ×3 (08:23→22:35)
[2021-06-25] MEDS: GABAPENTIN 300 MG CAP PO SCH ×3 (08:23→22:35)
--- NOTE | 2021-06-25 08:52 | P.PN ---
Subjective Progress Note Date: 06/25/21 Principal diagnosis: Status post I&D left dorsal thumb abscess Patient was evaluated at bedside today, she is resting comfortably. She has generalized discomfort in the thumb, it is not severe. Patient denies any fevers or chills at this time. She has no other orthopedic complaints at this time. She currently denies any headaches, lightheadedness or shortness of breath. Objective - Vital Signs Vital signs: Vital Signs Temp 97.5 F L 06/25/21 07:42 Pulse 77 06/25/21 07:42 Resp 18 06/25/21 07:42 BP 106/68 06/25/21 07:42 Pulse Ox 95 06/25/21 07:42 Intake & Output 06/24/21 06/25/21 06/25/21 18:59 06:59 18:59 Intake Total 770 Output Total 2 Balance 768 Weight 46.266 kg Intake: IV 350 Oral 420 Output: Estimated Blood Loss 2 Other: Voiding Method Toilet # Voids 1 2 - Exam Left upper extremity: Bandages intact involving the left thumb, there is no drainage, it's clean and dry Wrist extension and flexion are intact, she is able to wiggle all the fingers no difficulty Sensation to light touch throughout the extremity is intact Radial and ulnar pulses are 2+ - Labs CBC & Chem 7: 06/23/21 20:25 06/25/21 07:26 Labs: Abnormal Lab Results - Last 24 Hours (Table) 06/25/21 Range/Units 07:26 Creatinine 0.38 L (0.52-1.04) mg/dL Microbiology - Last 24 Hours (Table) 06/24/21 12:05 Gram Stain - Preliminary Finger - Left First Wound Culture - Preliminary 06/24/21 02:00 Gram Stain - Preliminary Finger - Left First Wound Culture - Preliminary 06/23/21 20:43 Blood Culture - Preliminary Blood No Growth after 24 hours 06/23/21 20:25 Blood Culture - Preliminary Blood No Growth after 24 hours 06/24/21 12:05 Anaerobic Culture - Preliminary Finger - Left First Assessment and Plan Assessment: Postoperative day #1 status post I&D left dorsal thumb abscess Plan: Dressing will be left in place at this time, plan for dressing change on 06/26/2021 at bedside Pain control, continue her normally prescribed [place] 10 mg/325 mg GI and DVT prophylaxis per primary medical service Await culture and sensitivity results, infectious disease recommendations appreciated We'll continue to follow during inpatient stay Time with Patient: Less than 30
[2021-06-25] MEDS: VANCOMYCIN 750 MG in SODIUM CHLORIDE 0.9% 250 ML IVPB SCH ×2 (09:39→17:31)
[2021-06-25] MEDS: HYDROcodone/APAP 5-325MG 1 EACH TAB PO PRN (12:39)
--- NOTE | 2021-06-25 20:17 | PN ---
PROGRESS NOTE DATE OF SERVICE: 06/25/2021 REASON FOR FOLLOWUP: Left arm MRSA abscess and cellulitis. INTERVAL HISTORY: The patient is afebrile. The patient is breathing comfortably. Overall discomfort to the left arm is slightly decreased. No chest pain, shortness of breath or cough. No abdominal pain or diarrhea. PHYSICAL EXAMINATION: Blood pressure 128/94 with a pulse of 96, temperature 97.7. She is 95% on room air. General description is a middle-aged female up in the bed in no distress. Respiratory system: Unlabored breathing, clear to auscultation anteriorly. Heart S1, S2. Regular rate and rhythm. Abdomen soft, no tenderness. Left arm is currently dressed. No obvious drainage on the dressing. LABS: No new labs have been obtained today. Local culture with presumptive MRSA. DIAGNOSTIC IMPRESSION AND PLAN: Patient with left arm abscess, status post drainage; was considered to be a superficial abscess, not deep tracking down to the bone or the joint. Patient to continue with vancomycin. Unasyn will be discontinued. Hopefully finish therapy with oral antibiotics. Continue with supportive care. MMODL / IJN: [id number] /
--- NOTE | 2021-06-25 20:35 | P.PN ---
Subjective Progress Note Date: 06/25/21 Chief Complaint: Abscess of the left thumb with possible osteomyelitis HISTORY OF PRESENT ILLNESS 60-year-old female one of our office patient with past medical history of COPD, squamous cell carcinoma of the tongue, history of osteoporosis, previous history of coagulopathy with blood clot chronic history of neuropathy who presented to the office on 06/23/2021 with severely infected left thumb according to her was gardening last week when she doesn't remember whether she had the puncture by a thorn or had something sharp puncture to part of the thumb developed to have significant pain and discomfort irritation and the blister on the side become m uch worse overnight. I did time was seen she had redness discomfort irritation with slight swelling of the entire upper extremity as well. With the area looking much worsening infection expected with the possibility of involvement of the bone patient was sent to the emergency department was giving 1 g of vancomycin started on Unasyn to be seen by orthopedic, bone scan was order along with plain x-ray. Her white blood cell was 14,400 with sed rate was 26. Patient COVID-19 was negative, no other abnormality with her lab testing. X-ray of the finger showed focal soft tissue nodular and swelling of the dorsal thumb at the level of the interphalangeal joint no definite osteomyelitis or Radio pa[employer] foreign-body was found. Will consult orthopedic possible need for I@D and possible other surgery. 06/25: Patient is followed by infectious disease as well as orthopedics, IND of the left common Looks clean on the surface that is visible, without any cyanosis, bone scan cannot rule out osteomyelitis, it did show delayed uptake, focally located at the first digit DIP joint, with patchy increased activity about the wrist joint, there is also Cipro similar hyperemia to the left hand, and the team or thenar eminence. 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 No weight change. No weakness, fatigue or lethargy. No daytime sleepiness. EENT: History of throat cancer mostly the base of the tongue postradiation and chemotherapy with slight swelling still have slight bit problem opening her mouth wide with slight stiffness of the neck area. Lungs: No shortness of breath, cough, no sputum production. No wheezing. Cardiovascular: No chest pain, no lower extremity edema. No palpitations. No paroxysmal nocturnal dyspnea. No orthopnea. No lightheadedness or dizziness. No syncopal episodes. Abdominal: No abdominal pain. No nausea, vomiting. No diarrhea. No consti pation. No bloody or tarry stools.. No loss of appetite. Genitourinary: No dysuria, increased frequency, urgency. No urinary retention. Musculoskeletal: No myalgias. No muscle weakness, no gait dysfunction, no frequent falls. No back pain. No neck pain. Integumentary: Left thumb significantly increased in size with redness or irritation discomfort and infection. Neurologic: No aphasia. No facial droop. No change in mentation. No head injury. No headache. No paralysis. No paresthesia. Psychiatric: No depression. No anxiety. No mood swings. Endocrine: No abnormal blood sugars. No weight change. No excessive sweating or thirst. No cold intolerance. PHYSICAL EXAMINATION Gen: This is a 60-year-old looks malnourished does not look in any respiratory distress. HEENT: The neck is more stiff than expected from radiation and still have significantly small opening of the mouth from her tongue cancer and radiation. NECK: Supple. No JVD. No lymphadenopathy. No thyromegaly. Significant stiffness of the neck area. LUNGS: Clear to auscultation. No wheezes or rhonchi. Decreased breath sound in the bases bilaterally. HEART: Regular rate and rhythm. No murmur. ABDOMEN: Soft. Bowel sounds are present. No masses. No tenderness. EXTREMITIES: Significant swelling in the left upper extremity all along but had significant pain and discomfort radiation redness and blister on the left thumb within the area almost half-time [id number] wide with the middle part look like puncture site from something sharp with the area involved all the way to the bone. NEUROLOGICAL: Patient is awake, alert and oriented x3. Cranial nerves 2 through 12 are grossly intact. ASSESSMENT AND PLAN 1. Left thumb abscess: Patient was giving antibiotics originally vancomycin and then Unasyn, surgical consultation along with ID consultation, patient will be going for bone scan along with x-ray repeat lab in 24 hours watch patient hemodynamic over the next day or 2. 2? Of early osteomyelitis: Patient be going for bone scan. 3 squamous cell carcinoma of the base of the tongue: Post chemo and radiation from 2002. 4 history of clotting PE: Patient has been on anticoagulation which will be resume in the afternoon today. 5 mild COPD: Can benefit from rescue inhaler on as-needed basis. 6 hypothyroidism: Most likely aggravated by radiation will continue levothyroxine at 75 g every 2 days. 7 chronic neuropathy: Continue gabapentin 900 mg 3 times a day. 8 chronic pain syndrome: Has been on hydrocodone and gabapentin. 9 history of osteoporosis has been on Fosamax calcium and vitamin D. 10 GI prophylaxis: Patient be on Pepcid 20 mg daily. 11 DVT prophylaxis: Remain on anticoagulation. CODE STATUS: Full code. COVID-19 testing: Was negative, patient was admitted to the hospital during pandemic time of COVID-19 Patient will be admitted to the hospital for a minimum of 2 night stay. Vital Signs - 24 hr 06/24/21 06/25/21 06/25/21 21:24 01:00 07:42 Temperature 98.1 F 97.5 F L Pulse Rate [ 103 H 70 77 Pulse Oximetery ] Respiratory 16 16 18 Rate Blood Pressure 100/56 106/68 [Right Arm] O2 Sat by Pulse 91 L 95 Oximetry 06/25/21 06/25/21 06/25/21 08:00 14:00 19:24 Temperature 97.7 F 98.2 F Pulse Rate [ 96 94 Pulse Oximetery ] Respiratory 18 20 17 Rate Blood Pressure 128/94 141/74 [Right Arm] O2 Sat by Pulse 95 96 Oximetry Laboratory Results WBC 14.5 k/uL (3.8-10.6) H 06/23/21 20:25 RBC 3.95 m/uL (3.80-5.40) 06/23/21 20:25 Hgb 14.4 gm/dL (11.4-16.0) 06/23/21 20:25 Hct 41.0 % (34.0-46.0) 06/23/21 20:25 MCV 103.7 fL (80.0-100.0) H 06/23/21 20:25 MCH 36.5 pg (25.0-35.0) H 06/23/21 20:25 MCHC 35.2 g/dL (31.0-37.0) 06/23/21 20:25 RDW 13.4 % (11.5-15.5) 06/23/21 20:25 Plt Count 423 k/uL (150-450) 06/23/21 20:25 MPV 7.4 06/23/21 20:25 Neutrophils % 74 % 06/23/21 20:25 Lymphocytes % 16 % 06/23/21 20:25 Monocytes % 6 % 06/23/21 20:25 Eosinophils % 1 % 06/23/21 20:25 Basophils % 0 % 06/23/21 20:25 Neutrophils # 10.8 k/uL (1.3-7.7) H 06/23/21 20:25 Lymphocytes # 2.3 k/uL (1.0-4.8) 06/23/21 20:25 Monocytes # 0.8 k/uL (0-1.0) 06/23/21 20: Eosinophils # 0.2 k/uL (0-0.7) 06/23/21 20:25 Basophils # 0.1 k/uL (0-0.2) 06/23/21 20:25 Macrocytosis Slight 06/23/21 20:25 ESR 26 mm/hr (0-20) H 06/23/21 20:25 Sodium 136 mmol/L (137-145) L 06/23/21 20:25 Potassium 4.0 mmol/L (3.5-5.1) 06/23/21 20:25 Chloride 98 mmol/L (98-107) 06/23/21 20:25 Carbon Dioxide 28 mmol/L (22-30) 06/23/21 20:25 Anion Gap 10 mmol/L 06/23/21 20:25 BUN 14 mg/dL (7-17) 06/23/21 20:25 Creatinine 0.38 mg/dL (0.52-1.04) L 06/25/21 07:26 Est GFR (CKD-EPI)AfAm >90 (>60 ml/min/1.73 sqM) 06/25/21 07:26 Est GFR (CKD-EPI)NonAf >90 (>60 ml/min/1.73 sqM) 06/25/21 07:26 Glucose 111 mg/dL (74-99) H 06/23/21 20:25 Plasma Lactic Acid French 0.9 mmol/L (0.7-2.0) 06/23/21 20:25 Calcium 9.9 mg/dL (8.4-10.2) 06/23/21 20:25 Total Bilirubin 0.5 mg/dL (0.2-1.3) 06/23/21 20:25 AST 26 U/L (14-36) 06/23/21 20:25 ALT 14 U/L (4-34) 06/23/21 20:25 Alkaline Phosphatase 102 U/L (38-126) 06/23/21 20:25 Total Protein 8.2 g/dL (6.3-8.2) 06/23/21 20:25 Albumin 4.6 g/dL (3.5-5.0) 06/23/21 20:25 Vancomycin Trough 9.7 ug/mL 06/25/21 07:26 Coronavirus (PCR) Not Detected (Not Detectd) 06/23/21 00:30 Objective - Vital Signs Vital signs: Vital Signs Temp 97.5 F L 06/25/21 07:42 Pulse 77 06/25/21 07:42 Resp 18 06/25/21 08:00 BP 106/68 06/25/21 07:42 Pulse Ox 95 06/25/21 07:42 Intake & Output 06/24/21 06/25/21 06/25/21 18:59 06:59 18:59 Intake Total 770 200 Output Total 2 Balance 768 200 Weight 46.266 kg Intake: IV 350 Oral 420 200 Output: Estimated Blood Loss 2 Other: Voiding Method Toilet Toilet # Voids 1 2 - Labs CBC & Chem 7: 06/23/21 20:25 06/25/21 07:26 Labs: Abnormal Lab Results - Last 24 Hours (Table) 06/25/21 Range/Units 07:26 Creatinine 0.38 L (0.52-1.04) mg/dL Microbiology - Last 24 Hours (Table) 06/24/21 02:00 Gram Stain - Preliminary Finger - Left First Wound Culture - Preliminary Presumptive MRSA 06/24/21 12:05 Gram Stain - Preliminary Finger - Left First Wound Culture - Preliminary 06/23/21 20:43 Blood Culture - Preliminary Blood No Growth after 24 hours 06/23/21 20:25 Blood Culture - Preliminary Blood No Growth after 24 hours 06/24/21 12:05 Anaerobic Culture - Preliminary Finger - Left First
[2021-06-26] MEDS: VANCOMYCIN 750 MG in SODIUM CHLORIDE 0.9% 250 ML IVPB SCH ×4 (03:16→18:17)
[2021-06-26] MEDS: HYDROcodone/APAP 5-325MG 1 EACH TAB PO PRN ×2 (05:42→13:20)
[2021-06-26] MEDS: LEVOTHYROXINE 75 MCG TAB PO SCH (05:42)
[2021-06-26] MEDS: APIXABAN 5 MG TAB PO SCH ×2 (09:09→20:28)
[2021-06-26] MEDS: HYDROcodone/APAP 10-325MG 1 EACH TAB PO SCH ×3 (09:09→20:29)
[2021-06-26] MEDS: GABAPENTIN 300 MG CAP PO SCH ×3 (09:09→20:29)
[2021-06-26] MEDS: ASPIRIN 81 MG PO SCH (09:10)
--- NOTE | 2021-06-26 11:02 | P.PN ---
Subjective Progress Note Date: 06/26/21 Principal diagnosis: Status post I&D left dorsal thumb abscess Patient was evaluated at bedside today, she is resting comfortably. Pain with regards to the left thumb is well-controlled at this time. Patient denies any fevers or chills at this time. She has no other orthopedic complaints at this time. She currently denies any headaches, lightheadedness or shortness of robin th. Objective - Vital Signs Vital signs: Vital Signs Temp 97.6 F 06/26/21 07:42 Pulse 71 06/26/21 07:42 Resp 18 06/26/21 07:42 BP 119/71 06/26/21 07:42 Pulse Ox 98 06/26/21 07:42 Intake & Output 06/25/21 06/26/21 06/26/21 18:59 06:59 18:59 Intake Total 800 260 Balance 800 260 Intake: IV 600 Ampicillin-Sulbactam 3 gm 100 In Sodium Chloride 0.9% 100 ml @ 200 mls/hr IVPB Q6H [facility] Rx#:[id number] Vancomycin 750 mg In 250 Sodium Chloride 0.9% 250 ml @ 125 mls/hr IVPB Q12HR [facility] Rx#:[id number] Vancomycin 750 mg In 250 Sodium Chloride 0.9% 250 ml @ 125 mls/hr IVPB Q8H [facility] Rx#:[id number] Oral 200 260 Other: Voiding Method Toilet Toilet # Voids 4 1 - Exam Left upper extremity: Postoperative bandage was removed today at bedside, no active drainage is visualized, no areas of fluctuance. Wrist extension and flexion are intact, she is able to wiggle all the fingers no difficulty Sensation to light touch throughout the extremity is intact Radial and ulnar pulses are 2+ - Labs CBC & Chem 7: 06/23/21 20:25 06/25/21 07:26 Labs: Microbiology - Last 24 Hours (Table) 06/23/21 20:43 Blood Culture - Preliminary Blood No Growth after 48 hours 06/23/21 20:25 Blood Culture - Preliminary Blood No Growth after 48 hours 06/24/21 12:05 Gram Stain - Preliminary Finger - Left First Wound Culture - Preliminary Presumptive MRSA Strep agalactiae - (group b) 06/24/21 02:00 Gram Stain - Preliminary Finger - Left First Wound Culture - Preliminary Presumptive MRSA Assessment and Plan Assessment: Postoperative day #2 status post I&D left dorsal thumb abscess Plan: Pain control, continue her normally prescribed [place] 10 mg/325 mg Wound instructions, recommend dressing changes every 2 days. GI and DVT prophylaxis per primary medical service Await culture and sensitivity results, infectious disease recommendations appreciated We'll continue to follow during inpatient stay Time with Patient: Less than 30
--- NOTE | 2021-06-26 11:49 | P.PN ---
Subjective Progress Note Date: 06/26/21 Chief Complaint: Abscess of the left thumb with possible osteomyelitis HISTORY OF PRESENT ILLNESS 60-year-old female one of our office patient with past medical history of COPD, squamous cell carcinoma of the tongue, history of osteoporosis, previous history of coagulopathy with blood clot chronic history of neuropathy who presented to the office on 06/23/2021 with severely infected left thumb according to her was gardening last week when she doesn't remember whether she had the puncture by a thorn or had something sharp puncture to part of the thumb developed to have significant pain and discomfort irritation and the blister on the side become m uch worse overnight. I did time was seen she had redness discomfort irritation with slight swelling of the entire upper extremity as well. With the area looking much worsening infection expected with the possibility of involvement of the bone patient was sent to the emergency department was giving 1 g of vancomycin started on Unasyn to be seen by orthopedic, bone scan was order along with plain x-ray. Her white blood cell was 14,400 with sed rate was 26. Patient COVID-19 was negative, no other abnormality with her lab testing. X-ray of the finger showed focal soft tissue nodular and swelling of the dorsal thumb at the level of the interphalangeal joint no definite osteomyelitis or Radio paque foreign-body was found. Will consult orthopedic possible need for I@D and possible other surgery. 06/25: Patient is followed by infectious disease as well as orthopedics, IND of the left common Looks clean on the surface that is visible, without any cyanosis, bone scan cannot rule out osteomyelitis, it did show delayed uptake, focally located at the first digit DIP joint, with patchy increased activity about the wrist joint, there is also Cipro similar hyperemia to the left hand, and the team or thenar eminence. 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 Anticipating discharge in the next 24 hours, once antibiotics finalized by Dr. Spicer REVIEW OF SYSTEMS Constitutional: No fever, no chills, no night sweats. No weight change. No weakness, fatigue or lethargy. No daytime sleepiness. EENT: History of throat cancer mostly the base of the tongue postradiation and chemotherapy with slight swelling still have slight bit problem opening her mouth wide with slight stiffness of the neck area. Lungs: No shortness of breath, cough, no sputum production. No wheezing. Cardiovascular: No chest pain, no lower extremity edema. No palpitations. No paroxysmal nocturnal dyspnea. No orthopnea. No lightheadedness or dizziness. No syncopal episodes. Abdominal: No abdominal pain. No nausea, vomiting. No diarrhea. No constipation. No bloody or tarry stools.. No loss of appetite. Genitourinary: No dysuria, increased frequency, urgency. No urinary retention. Musculoskeletal: No myalgias. No muscle weakness, no gait dysfunction, no frequent falls. No back pain. No neck pain. Integumentary: Left thumb significantly increased in size with redness or irritation discomfort and infection. Neurologic: No aphasia. No facial droop. No change in mentation. No head injury. No headache. No paralysis. No paresthesia. Psychiatric: No depression. No anxiety. No mood swings. Endocrine: No abnormal blood sugars. No weight change. No excessive sweating or thirst. No cold intolerance. PHYSICAL EXAMINATION Gen: This is a 60-year-old looks malnourished does not look in any respiratory distress. HEENT: The neck is more stiff than expected from radiation and still have significantly small opening of the mouth from her tongue cancer and radiation. NECK: Supple. No JVD. No lymphadenopathy. No thyromegaly. Significant stiffness of the neck area. LUNGS: Clear to auscultation. No wheezes or rhonchi. Decreased breath sound in the bases bilaterally. HEART: Regular rate and rhythm. No murmur. ABDOMEN: Soft. Bowel sounds are present. No masses. No tenderness. EXTREMITIES: Significant swelling in the left upper extremity all along but had significant pain and discomfort radiation redness and blister on the left thumb within the area almost half-time [id number] wide with the middle part look like puncture site from something sharp with the area involved all the way to the bone. NEUROLOGICAL: Patient is awake, alert and oriented x3. Cranial nerves 2 through 12 are grossly intact. ASSESSMENT AND PLAN 1. Left thumb abscess: Cannot rule out osteomyelitis based on triple phase bone scan presumptive MRSA, and strep agalactiae of c/s. Patient was giving antibiotics originally vancomycin and then Unasyn discontinued, surgical consultation along with ID consultation, patient or bone scan 2? Suspicion early osteomyelitis: On bone scan. iv Vanco 3 squamous cell carcinoma of the base of the tongue: Post chemo and radiation from 2002. 4 history of clotting PE: Patient has been on anticoagulation which will be resume in the afternoon today. 5 mild COPD: Can benefit from rescue inhaler on as-needed basis. 6 hypothyroidism: Most likely aggravated by radiation will continue levothyroxine at 75 g every 2 days. 7 chronic neuropathy: Continue gabapentin 900 mg 3 times a day. 8 chronic pain syndrome: Has been on hydrocodone and gabapentin. 9 history of osteoporosis has been on Fosamax calcium and vitamin D. 10 GI prophylaxis: Patient be on Pepcid 20 mg daily. 11 DVT prophylaxis: Remain on anticoagulation. CODE STATUS: Full code. COVID-19 testing: Was negative, patient was admitted to the hospital during pandemic time of COVID-19 Patient will be admitted to the hospital for a minimum of 2 night stay. Vital Signs - 24 hr 06/24/21 06/25/21 06/25/21 21:24 01:00 07:42 Temperature 98.1 F 97.5 F L Pulse Rate [ 103 H 70 77 Pulse Oximetery ] Respiratory 16 16 18 Rate Blood Pressure 100/56 106/68 [Right Arm] O2 Sat by Pulse 91 L 95 Oximetry 06/25/21 06/25/21 06/25/21 08:00 14:00 19:24 Temperature 97.7 F 98.2 F Pulse Rate [ 96 94 Pulse Oximetery ] Respiratory 18 20 17 Rate Blood Pressure 128/94 141/74 [Right Arm] O2 Sat by Pulse 95 96 Oximetry Laboratory Results WBC 14.5 k/uL (3.8-10.6) H 06/23/21 20:25 RBC 3.95 m/uL (3.80-5.40) 06/23/21 20:25 Hgb 14.4 gm/dL (11.4-16.0) 06/23/21 20:25 Hct 41.0 % (34.0-46.0) 06/23/21 20:25 MCV 103.7 fL (80.0-100.0) H 06/23/21 20:25 MCH 36.5 pg (25.0-35.0) H 06/23/21 20:25 MCHC 35.2 g/dL (31.0-37.0) 06/23/21 20:25 RDW 13.4 % (11.5-15.5) 06/23/21 20:25 Plt Count 423 k/uL (150-450) 06/23/21 20:25 MPV 7.4 06/23/21 20:25 Neutrophils % 74 % 06/23/21 20:25 Lymphocytes % 16 % 06/23/21 20:25 Monocytes % 6 % 06/23/21 20:25 Eosinophils % 1 % 06/23/21 20:25 Basophils % 0 % 06/23/21 20:25 Neutrophils # 10.8 k/uL (1.3-7.7) H 06/23/21 20:25 Lymphocytes # 2.3 k/uL (1.0-4.8) 06/23/21 20:25 Monocytes # 0.8 k/uL (0-1.0) 06/23/21 20:25 Eosinophils # 0.2 k/uL (0-0.7) 06/23/21 20:25 Basophils # 0.1 k/uL (0-0.2) 06/23/21 20:25 Macrocytosis Slight 06/23/21 20:25 ESR 26 mm/hr (0-20) H 06/23/21 20:25 Sodium 136 mmol/L (137-145) L 06/23/21 20:25 Potassium 4.0 mmol/L (3.5-5.1) 06/23/21 20:25 Chloride 98 mmol/L (98-107) 06/23/21 20:25 Carbon Dioxide 28 mmol/L (22-30) 06/23/21 20:25 Anion Gap 10 mmol/L 06/23/21 20:25 BUN 14 mg/dL (7-17) 06/23/21 20:25 Creatinine 0.38 mg/dL (0.52-1.04) L 06/25/21 07:26 Est GFR (CKD-EPI)AfAm >90 (>60 ml/min/1.73 sqM) 06/25/21 07:26 Est GFR (CKD-EPI)NonAf >90 (>60 ml/min/1.73 sqM) 06/25/21 07:26 Glucose 111 mg/dL (74-99) H 06/23/21 20:25 Plasma Lactic Acid French 0.9 mmol/L (0.7-2.0) 06/23/21 20:25 Calcium 9.9 mg/dL (8.4-10.2) 06/23/21 20:25 Total Bilirubin 0.5 mg/dL (0.2-1.3) 06/23/21 20:25 AST 26 U/L (14-36) 06/23/21 20:25 ALT 14 U/L (4-34) 06/23/21 20:25 Alkaline Phosphatase 102 U/L (38-126) 06/23/21 20:25 Total Protein 8.2 g/dL (6.3-8.2) 06/23/21 20:25 Albumin 4.6 g/dL (3.5-5.0) 06/23/21 20:25 Vancomycin Trough 9.7 ug/mL 06/25/21 07:26 Coronavirus (PCR) Not Detected (Not Detectd) 06/23/21 00:30 Objective - Vital Signs Vital signs: Vital Signs Temp 97.6 F 06/26/21 07:42 Pulse 71 06/26/21 07:42 Resp 18 06/26/21 07:42 BP 119/71 06/26/21 07:42 Pulse Ox 98 06/26/21 07:42 Intake & Output 06/25/21 06/26/21 06/26/21 18:59 06:59 18:59 Intake Total 800 260 Balance 800 260 Intake: IV 600 Ampicillin-Sulbactam 3 gm 100 In Sodium Chloride 0.9% 100 ml @ 200 mls/hr IVPB Q6H [facility] Rx#:[id number] Vancomycin 750 mg In 250 Sodium Chloride 0.9% 250 ml @ 125 mls/hr IVPB Q12HR [facility] Rx#:[id number] Vancomycin 750 mg In 250 Sodium Chloride 0.9% 250 ml @ 125 mls/hr IVPB Q8H [facility] Rx#:[id number] Oral 200 260 Other: Voiding Method Toilet Toilet # Voids 4 1 - Labs CBC & Chem 7: 06/23/21 20:25 06/25/21 07:26 Labs: Microbiology - Last 24 Hours (Table) 06/23/21 20:43 Blood Culture - Preliminary Blood No Growth after 48 hours 06/23/21 20:25 Blood Culture - Preliminary Blood No Growth after 48 hours 06/24/21 12:05 Gram Stain - Preliminary Finger - Left First Wound Culture - Preliminary Presumptive MRSA Strep agalactiae - (group b) 06/24/21 02:00 Gram Stain - Preliminary Finger - Left First Wound Culture - Preliminary Presumptive MRSA
[2021-06-27] MEDS: VANCOMYCIN 750 MG in SODIUM CHLORIDE 0.9% 250 ML IVPB SCH ×2 (02:25→12:06)
[2021-06-27] MEDS: HYDROcodone/APAP 5-325MG 1 EACH TAB PO PRN (02:44)
[2021-06-27 03:57] VITALS: RESP 16
[2021-06-27 07:52] VITALS: PULSE 70; TEMP 97.8
[2021-06-27] MEDS: ASPIRIN 81 MG PO SCH (08:00)
[2021-06-27] MEDS: APIXABAN 5 MG TAB PO SCH (08:00)
[2021-06-27] MEDS: GABAPENTIN 300 MG CAP PO SCH (08:01)
[2021-06-27] MEDS: HYDROcodone/APAP 10-325MG 1 EACH TAB PO SCH (08:01)
[2021-06-27 08:16] VITALS: BP 92/59
--- NOTE | 2021-06-27 08:22 | PN ---
PROGRESS NOTE DATE OF SERVICE: 06/26/2021 REASON FOR FOLLOWUP: Left arm MRSA abscess and cellulitis. INTERVAL HISTORY: Patient is afebrile. The patient complaining of pain to the left thumb area. No worse than yesterday though. No chest pain, shortness of breath. No cough. No abdominal pain or diarrhea. EXAMINATION: Her blood pressure is 125/80 with a pulse of 73, temperature 97.4. She is 96% on room air. General description is a middle-aged female up in the bed in no distress. Respiratory system: Unlabored breathing, clear to auscultation anteriorly. Heart S1, S2. Regular rate and rhythm. Abdomen: Soft. No tenderness. Left arm is currently dressed. No obvious drainage on the dressing. LABS: No new labs have been obtained today. Culture finalized with MRSA. DIAGNOSTIC IMPRESSION AND PLAN: Patient with left hand MRSA abscess and cellulitis in this patient who has shown overall clinical improvement. The patient did have a positive bone scan which is more likely false-positive because of the underlying soft tissue infection as at surgical time there was no mention of any infiltration of the wound down to the bone of the joint. SHE IS ALLERGIC TO SULFA. Hopefully may be able to finish therapy with oral tetracycline and close outpatient followup. MMODL / IJN: [id number] /
[2021-06-27] MEDS ORDERED: VANCOMYCIN TROUGH DUE 1 EACH MISC MISCELLANE ONE (09:00)
--- NOTE | 2021-06-27 09:04 | P.DS ---
Providers Date of admission: 06/24/21 13:45 Expected date of discharge: 06/27/21 Attending physician: Yrn Lawton Consults: 06/23/21 21:31 Consult Physician Routine Consulting Provider: Nathanael Sweeney Consult Reason/Comments: Left thumb infection Do you want consulting provider notified?: Yes 06/24/21 05:49 Consult Physician Routine Consulting Provider: Ana Spicer Consult Reason/Comments: L Thumb infection with possible early Osteomyelitis Do you want consulting provider notified?: Yes Primary care physician: [facility] Course: HISTORY OF PRESENT ILLNESS 60-year-old female one of our office patient with past medical history of COPD, squamous cell carcinoma of the tongue, history of osteoporosis, previous history of coagulopathy with blood clot chronic history of neuropathy who presented to the office on 06/23/2021 with severely infected left thumb according to her was gardening last week when she doesn't remember whether she had the puncture by a thorn or had something sharp puncture to part of the thumb developed to have significant pain and discomfort irritation and the blister on the side become much worse overnight. I did time was seen she had redness discomfort irritation with slight swelling of the entire upper extremity as well. With the area looking much worsening infection expected with the possibility of involvement of the bone patient was sent to the emergency department was giving 1 g of vancomycin started on Unasyn to be seen by orthopedic, bone scan was order along with plain x-ray. Her white blood cell was 14,400 with sed rate was 26. Patient COVID-19 was negative, no other abnormality with her lab testing. X-ray of the finger showed focal soft tissue nodular and swelling of the dorsal thumb at the level of the interphalangeal joint no definite osteomyelitis or Radiopaque foreign-body was found. Will consult orthopedic possible need for I@D and possible other surgery. 06/25: Patient is followed by infectious disease as well as orthopedics, IND of the left common Looks clean on the surface that is visible, without any cyanosis, bone scan cannot rule out osteomyelitis, it did show delayed uptake, focally located at the first digit DIP joint, with patchy increased activity about the wrist joint, there is also Cipro similar hyperemia to the left hand, and the team or thenar eminence. 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 Anticipating discharge in the next 24 hours, once antibiotics finalized by Dr. Spicer 06/26: Patient denies any new complaints today. She has been seen by Dr. kahn and he recommends doxycycline for 2 week course. Patient is also been seen by orthopedics and recommended dressing change every 2 days. She has been afebrile, heart rate 70, blood pressure 92/59, pulse ox 95% on room air. WBC 11. Creatinine 0.52. Patient be discharged home today in stable condition. DISCHARGE DIAGNOSE 1. Left thumb abscess, ruled out osteomyelitis per Dr. Hale 2. Suspicion early osteomyelitis ruled out 3 squamous cell carcinoma of the base of the tongue 4 history of clotting PE 5 mild COPD 6 hypothyroidism 7 chronic neuropathy 8 chronic pain syndrome 9 history of osteoporosis COVID-19 testing: Was negative, patient was admitted to the hospital during pandemic time of COVID-19 DISCHARGE PLAN Home Greater than 35 minutes was utilized and coordinating patient's discharge. Impression and plan of care have been directed as dictated by the signing physician. Latia Thomas nurse practitioner acting as scribe for signing physician. Patient Condition at Discharge: Good Plan - Discharge Summary Discharge Rx Participant: No New Discharge Prescriptions: New Doxycycline [Vibramycin] 100 mg PO BID 14 Days #28 capsule Continue Acetaminophen Tab [Tylenol] 500 mg PO Q6H PRN PRN Reason: Pain HYDROcodone/APAP 10-325MG [[place] 10-325] 1 tab PO TID Aspirin 81 mg PO DAILY Alendronate Sodium [Fosamax] 70 mg PO SANDHU Lactose-Reduced Food [Ensure Original] 1 can PO 5XD PRN PRN Reason: HUNGER Gabapentin Oral Soln [Neurontin Oral Soln] 900 mg PO TID Apixaban [Eliquis] 5 mg PO BID Levothyroxine Sodium [Synthroid] 75 mcg PO Q48H Discharge Medication List Acetaminophen Tab [Tylenol] 500 mg PO Q6H PRN 06/23/21 [History] Alendronate Sodium [Fosamax] 70 mg PO SANDHU 06/23/21 [History] Apixaban [Eliquis] 5 mg PO BID 06/23/21 [History] Aspirin 81 mg PO DAILY 06/23/21 [History] Gabapentin Oral Soln [Neurontin Oral Soln] 900 mg PO TID 06/23/21 [History] HYDROcodone/APAP 10-325MG [[place] 10-325] 1 tab PO TID 06/23/21 [History] Lactose-Reduced Food [Ensure Original] 1 can PO 5XD PRN 06/23/21 [History] Levothyroxine Sodium [Synthroid] 75 mcg PO Q48H 06/23/21 [History] Doxycycline [Vibramycin] 100 mg PO BID 14 Days #28 capsule 06/27/21 [Rx] Follow up Appointment(s)/Referral(s): Yrn Lawton MD [Primary Care Provider] - 1 Week Ana Spicer MD [STAFF PHYSICIAN] - 07/04/21 1:30 pm Nathanael Sweeney MD [STAFF PHYSICIAN] - 07/14/21 11:10 am Patient Instructions/Handouts: MRSA (Methicillin-Resistant Staphylococcus Aureus) (DC), Cellulitis (DC) Activity/Diet/Wound Care/Special Instructions: Wound care instructions: 1. Keep wound covered and bandaged at all times 2. Okay to use basic antibacterial soap and water, do not soak 3. Avoid excess use of the left upper extremity 4. Plan for follow-up in the outpatient setting in 2 weeks Discharge Disposition: HOME SELF-CARE
--- NOTE | 2021-06-27 10:10 | P.PN ---
Subjective Progress Note Date: 06/27/21 Principal diagnosis: Status post I&D left dorsal thumb abscess Patient was evaluated at bedside today, she is resting comfortably. Pain with regards to the left thumb is well-controlled at this time. Patient denies any fevers or chills at this time. She has no other orthopedic complaints at this time. She currently denies any headaches, lightheadedness or shortness of robin th. Objective - Vital Signs Vital signs: Vital Signs Temp 97.8 F 06/27/21 07:50 Pulse 70 06/27/21 07:50 Resp 16 06/27/21 07:50 BP 92/59 06/27/21 07:50 Pulse Ox 95 06/27/21 07:50 Intake & Output 06/26/21 06/27/21 06/27/21 18:59 06:59 18:59 Intake Total 240 Balance 240 Intake: Oral 240 Other: Voiding Method Toilet # Voids 8 3 1 # Bowel Movements 0 - Exam Left upper extremity: Postoperative bandage in good position and condition, no drainage appreciated Wrist extension and flexion are intact, she is able to wiggle all the fingers no difficulty Sensation to light touch throughout the extremity is intact Radial and ulnar pulses are 2+ - Labs CBC & Chem 7: 06/23/21 20:25 06/25/21 07:26 Labs: Microbiology - Last 24 Hours (Table) 06/23/21 20:43 Blood Culture - Preliminary Blood No Growth after 72 hours 06/23/21 20:25 Blood Culture - Preliminary Blood No Growth after 72 hours 06/24/21 12:05 Gram Stain - Preliminary Finger - Left First Wound Culture - Preliminary Presumptive MRSA Strep agalactiae - (group b) 06/24/21 02:00 Gram Stain - Final Finger - Left First Wound Culture - Final Methicillin resist S. aureus Strep agalactiae - (group b) 06/24/21 12:05 Anaerobic Culture - Preliminary Finger - Left First Assessment and Plan Assessment: Postoperative day #3 status post I&D left dorsal thumb abscess Plan: Wound instructions were discussed the patient today at bedside, this will include showering instructions, recommend dressing changes every 2 days. GI and DVT prophylaxis per primary medical service Other medical specialty recommendations appreciated Stable via the orthopedic standpoint for discharge Time with Patient: Less than 30
[2021-06-27 10:20] LABS: Basophils % (A) 0 %; Eosinophils # (A) 0.3 k/uL (0-0.7); Eosinophils % (A) 3 %; HCT 41.4 % (34.0-46.0); HGB 13.3 gm/dL (11.4-16.0); Lymphocytes # (A) 1.4 k/uL (1.0-4.8); Lymphocytes % (A) 13 %; MCH 33.9 pg (25.0-35.0); MCHC 32.1 g/dL (31.0-37.0); MCV 105.7 fL (80.0-100.0); Macrocytosis Moderate; Mean Platelet Volume 7.2; Monocytes # (A) 0.4 k/uL (0-1.0); Monocytes % (A) 4 %; Neutrophils # (A) 8.6 k/uL (1.3-7.7); Neutrophils % (A) 78 %; Platelet Count 487 k/uL (150-450); RBC 3.92 m/uL (3.80-5.40); RDW 13.5 % (11.5-15.5)
[2021-06-27 10:39] LABS: African American GFR (CKD) >90 (>60 ml/min/1.73 sqM); Anion Gap 6 mmol/L; Blood Urea Nitrogen 8 mg/dL (7-17); Calcium 9.7 mg/dL (8.4-10.2); Carbon Dioxide 36 mmol/L (22-30); Chloride 95 mmol/L (98-107); Glucose 106 mg/dL (74-99); Non-African American GFR(CKD) >90 (>60 ml/min/1.73 sqM); Potassium 4.9 mmol/L (3.5-5.1); Sodium 137 mmol/L (137-145)
--- NOTE | 2021-06-27 14:16 | PN ---
PROGRESS NOTE DATE OF SERVICE: 06/27/2021 REASON FOR FOLLOWUP: Left thumb abscess MRSA. INTERVAL HISTORY: Patient was seen on rounds this morning. The patient is feeling better. Overall pain and discomfort to the left thumb has decreased. No chest pain, shortness of breath or cough. No abdominal pain or diarrhea. PHYSICAL EXAMINATION: Blood pressure is 92/59 with a pulse of 70, temperature is 97.8. She is 95% on room air. General description is a middle-aged female up in the bed in no distress. Respiratory system: Unlabored breathing, clear to auscultation anteriorly. Heart S1, S2. Regular rate and rhythm. Abdomen soft, no tenderness. Left arm swelling and redness has decreased. Wound is not deep, mostly superficial. LABS: Hemoglobin is 13.8, white count 11.0, creatinine 0.42. DIAGNOSTIC IMPRESSION AND PLAN: Patient with left thumb abscess secondary to MRSA. The patient is ALLERGIC TO BACTRIM planning on doxycycline 100 mg twice a day for 2 weeks and close outpatient followup. Local wound care with Aquacel Silver dressing. Close outpatient followup. Discussed with the family. MMODL / IJN: [id number] /
--- NOTE | 2021-06-28 10:14 | CDI ---
Documentation Clarification Form Date: 06/28/2021 10:09:48 AM From: Juan Carlos Dang Admit Date: 06/24/2021 01:45:00 PM Patient Name: Jessica Bobo Visit Number: [id number] Discharge Date: 06/27/2021 12:23:00 PM ATTENTION: The Clinical Documentation Specialists (CDI) and [facility] Coding Staff appreciate your assistance in clarifying documentation. Please respond to the clarification below the line at the bottom and electronically sign. The CDI & [facility] Coding staff will review the response and follow-up if needed. Please note: Queries are made part of the Legal Health Record. If you have any questions, please contact the author of this message via ITS. Dr. Nathanael Sweeney A debridement is documented in your OR report.. Additional clarification regarding the procedure is requested. History/Risk Factors: L thumb abscess Clinical Indicators: Treatment: debridment of SQ tissue of L thumb Please clarify the type of procedure performed: [ x ] Excisional debridement (the removal of necrotic, devitalized tissue or slough by means of cutting away of tissue) [ ] Non-excisional debridement (the removal of necrotic, devitalized tissue or slough by means of flushing, brushing, or washing. (Irrigation) [ ] Other; please specify [ ] Unable to determine Five elements required for accurate and compliant documentation of a debridement: Technique used (e.g., excisional, excised, cutting, brushing, jet lavage etc.) Instrument(s) used (e.g., scalpel, curette, etc.) Nature of the tissue removed (e.g., necrotic, devitalized tissues, non-viable tissue, etc.) Appearance and size of the wound (e.g., down to fresh bleeding tissue, 7cm x 10cm, etc.) Depth of the debridement* (e.g., skin, subcutaneous tissue, fascia, muscle, bone, etc.) (Template Last Revised: October 2020) Excised sharply with a scalpel, necrotic tissue was debrided down to the epidermis/subcutaneous tissue, the wound measured 1 x 1 cm MTDD
== END 2021-06-27 12:23 | disposition home or self-care (01) | DRG 580 ==
LOC: EC 16:47 → 6NMEDSUR 21:13 → UNDOADMOB 21:13 → 6PED 21:13 → 6NMEDSUR 06-24 10:34 → OBSVTOIN 06-24 13:45
PROVIDERS: ADMIT Internal Medicine Geriatric Medicine; ATTEND Internal Medicine Geriatric Medicine
PROC: 0JBK0ZZ Excision of Left Hand Subcutaneous Tissue and Fascia, Open Approach (ICD-10-PCS; principal; 2021-06-24 09:20)
DX: L02.512 Cutaneous abscess of left hand (principal); L03.114 Cellulitis of left upper limb; M86.9 Osteomyelitis, unspecified; G89.4 Chronic pain syndrome; J44.9 Chronic obstructive pulmonary disease, unspecified; M81.0 Age-related osteoporosis without current pathological fracture; Z20.822 Contact with and (suspected) exposure to COVID-19; Z79.01 Long term (current) use of anticoagulants; Z79.82 Long term (current) use of aspirin; Z79.83 Long term (current) use of bisphosphonates; Z79.890 Hormone replacement therapy; B95.62 Methicillin resistant Staphylococcus aureus infection as the cause of diseases classified elsewhere; Z85.810 Personal history of malignant neoplasm of tongue; E03.9 Hypothyroidism, unspecified; G62.9 Polyneuropathy, unspecified; Z79.899 Other long term (current) drug therapy; Z80.7 Family history of other malignant neoplasms of lymphoid, hematopoietic and related tissues; Z82.49 Family history of ischemic heart disease and other diseases of the circulatory system; Z82.5 Family history of asthma and other chronic lower respiratory diseases; Z86.14 Personal history of Methicillin resistant Staphylococcus aureus infection; Z88.1 Allergy status to other antibiotic agents; Z88.2 Allergy status to sulfonamides; Z90.710 Acquired absence of both cervix and uterus
CPT/HCPCS: 36415; 78315; 80048; 80053; 80202; 82565; 83605; 85025; 85652; 87040; 87070; 87075; 87077; 87186; 87205; 87635; 96365; 96367; 99284

== ENCOUNTER → 2021-08-24 | Outpatient (CLI) | payer OTHER ==
--- NOTE | 2021-08-25 09:06 | MM ---
Reason for exam: screening (asymptomatic). Last mammogram was performed 2 years and 6 months ago. History: Patient is postmenopausal and has history of other cancer at age 42. Physical Findings: A clinical breast exam by your physician is recommended on an annual basis and results should be correlated with mammographic findings. MG 3D Screening Mammo W/Cad Bilateral CC, MLO, and XCCL view(s) were taken. Prior study comparison: March 04, 2019, bilateral MG screening mammo w CAD. May 08, 2016, bilateral MG screening mammo w CAD. There are scattered fibroglandular densities. No significant changes when compared with prior studies. ASSESSMENT: Benign, BI-RAD 2 RECOMMENDATION: Routine screening mammogram of both breasts in 1 year.
== END | disposition home or self-care (01) ==
LOC: RADMAMWWP 11:59
PROVIDERS: ATTEND Internal Medicine Geriatric Medicine
DX: Z12.31 Encounter for screening mammogram for malignant neoplasm of breast (principal); Z78.0 Asymptomatic menopausal state
CPT/HCPCS: 77063; 77067

== ENCOUNTER → 2022-01-05 | Outpatient (CLI) | payer OTHER ==
--- NOTE | 2022-01-06 07:26 | XR ---
EXAMINATION TYPE: XR chest 2V DATE OF EXAM: 01/05/2022 COMPARISON: 02/28/2021 INDICATION: Cough and shortness of breath x1 week TECHNIQUE: Frontal and lateral views of the chest are obtained. FINDINGS: The heart size is normal. The pulmonary vasculature is normal. Right middle lobe infiltrate is present with silhouetting the heart border. Correlate for pneumonia. Follow-up to clearing is recommended. IMPRESSION: 1. Right middle lobe consolidation. Correlate for pneumonia.
== END | disposition home or self-care (01) ==
LOC: RADXRMAIN 16:42
PROVIDERS: ATTEND Nurse Practitioner Family
DX: R06.02 Shortness of breath (principal); R05.9 Cough, unspecified
CPT/HCPCS: 71046

== ENCOUNTER → 2022-01-19 | Outpatient (CLI) | payer OTHER ==
--- NOTE | 2022-01-19 15:41 | XR ---
EXAMINATION TYPE: XR chest 2V DATE OF EXAM: 01/19/2022 COMPARISON: 01/05/2022 HISTORY: 61-year-old female J6 9.0, aspiration pneumonia TECHNIQUE: Frontal and lateral views FINDINGS: Heart normal size. Scattered calcified granulomas within the upper lungs on both sides. Previous left -sided segmental resection of the left clavicular shaft. Focal right basilar opacity is improving. Re sidual opacity remains. No pleural effusion. Unchanged mild anterior wedging midthoracic vertebral liban dy. IMPRESSION: Residual but improving right basilar airspace disease. Evidence of prior granulomatous disease. Suspe ct background COPD.
== END | disposition home or self-care (01) ==
LOC: RADXRMAIN 12:34
PROVIDERS: ATTEND Nurse Practitioner Family
DX: J98.4 Other disorders of lung (principal)
CPT/HCPCS: 71046

== ENCOUNTER → 2022-05-02 | Outpatient (CLI) | payer OTHER ==
[2022-05-02 19:55] LABS: ALT 13 U/L (8-44); AST 17 U/L (13-35); African American GFR (CKD) 107.6 (60.0-200.0); Albumin 4.4 g/dL (3.8-4.9); Albumin/Globulin Ratio 1.63 (1.60-3.17); Alkaline Phosphatase 57 U/L (41-126); BUN/Creat Ratio 36.57 Ratio (12.00-20.00); Blood Urea Nitrogen 25.6 mg/dL (9.0-27.0); Calcium 9.3 mg/dL (8.7-10.3); Carbon Dioxide 31.7 mmol/L (20.0-27.5); Chloride 97 mmol/L (96-109); Globulin 2.7 g/dL (1.6-3.3); Glucose 99 mg/dL (70-110); Non-African American GFR(CKD) 92.9 (60.0-200.0); Potassium 4.8 mmol/L (3.5-5.5); Sodium 139 mmol/L (135-145); Total Bilirubin <0.15 mg/dL (0.30-1.20); Total Protein 7.1 g/dL (6.2-8.2)
== END | disposition home or self-care (01) ==
LOC: LABWHC1 11:42
PROVIDERS: ATTEND Internal Medicine
DX: M81.0 Age-related osteoporosis without current pathological fracture (principal); E03.9 Hypothyroidism, unspecified; E55.9 Vitamin D deficiency, unspecified
CPT/HCPCS: 36415; 80053; 82306; 82523; 84439; 84443

== ENCOUNTER 2022-07-19 09:16 | Day surgery (SDC) | payer OTHER ==
[2022-07-17 14:07] VITALS: BMI 19.2
[~2022-07-19 09:16] MED LIST: LACTATED RINGERS 1,000 ML IV SCH; LIDOCAINE 1% (10MG/ML) FOR IV START INTRADERMA PRN
[2022-07-19 10:09] VITALS: TEMP 98.5
[2022-07-19] MEDS ORDERED: PROPOFOL 10 MG/ML 20 ML VIAL IV ONE (10:45)
[2022-07-19] MEDS ORDERED: KETAMINE 10 MG/ML 20 ML VIAL ONE (10:45)
[2022-07-19] MEDS ORDERED: MIDAZOLAM 2 MG/2 ML VIAL ONE (10:45)
--- NOTE | 2022-07-19 11:16 | P.PCN ---
Date of Procedure: 07/19/22 Procedure(s) Performed: BRIEF HISTORY: Patient is a 61-year-old [place] female scheduled for an elective colonoscopy as a part of screening for colon cancer/positive cologuard. She also has family history of colon cancer diagnosed in her brother at age 59.:. PROCEDURE PERFORMED: Colonoscopy. PREOPERATIVE DIAGNOSIS: Screening for colon cancer/positive cologuard/ /family history of colon cancer IV sedation per Anesthesia. PROCEDURE: After informed consent was obtained, the patient, was brought into the endoscopy unit. IV sedation was administered by Anesthesia under continuous monitoring. Digital rectal examination was normal. Initially the Olympus CF-160 flexible video colonoscope was then inserted in the rectum, gradually advanced into the cecum without any difficulty. Careful examination was performed as the scope was gradually being withdrawn. Ileocecal valve and the appendiceal orifice were visualized and appeared normal. Prep was oral in several areas of the colon. Mucosa of the cecum, ascending colon, transverse colon, descending colon, sigmoid colon, and rectum appeared normal. Retroflexion was performed in the rectum and no lesions were seen. The patient tolerated the procedure well. IMPRESSION: Normal-appearing colon from rectum to cecum with no evidence of colorectal neoplasia . Poor prep in several areas of the colon. RECOMMENDATIONS: Findings of this examination were discussed with the patient as well as a family.. She was advised to have a repeat colonoscopy in 5 years from now because of the poor prep and family history of colon cancer.
[2022-07-19 12:12] VITALS: BP 93/69; PULSE 69; RESP 18
== END 2022-07-19 12:25 | disposition home or self-care (01) ==
LOC: ORWHC2ENDO 09:16
PROVIDERS: ATTEND Internal Medicine Gastroenterology
DX: R19.5 Other fecal abnormalities (principal); J44.9 Chronic obstructive pulmonary disease, unspecified; E03.9 Hypothyroidism, unspecified; Z83.71 Family history of colonic polyps; Z79.890 Hormone replacement therapy; Z88.2 Allergy status to sulfonamides; Z79.82 Long term (current) use of aspirin; Z98.51 Tubal ligation status; Z79.899 Other long term (current) drug therapy
CPT/HCPCS: 45378; J2250; J2704

== ENCOUNTER → 2023-02-14 | Outpatient (CLI) | payer SELFPAY ==
--- NOTE | 2023-02-14 16:46 | XR ---
EXAMINATION TYPE: XR chest 2V DATE OF EXAM: 02/14/2023 3:29 PM COMPARISON: Chest radiographs from 01/19/2022 TECHNIQUE: XR chest 2V Frontal and lateral views of the chest. CLINICAL INDICATION:Female, 62 years old with history of J69.0; FINDINGS: Lungs/Pleura: Stable right basilar atelectasis and/or scarring. There is no evidence of pleural effus ion, focal consolidation, or pneumothorax. Pulmonary vascularity: Unremarkable. Heart/mediastinum: Cardiomediastinal silhouette is unremarkable. Musculoskeletal: No acute osseous pathology. IMPRESSION: Persistent right basilar atelectasis and/or scarring. No new acute process visualized.
== END | disposition home or self-care (01) ==
LOC: RADXRMAIN 15:11
PROVIDERS: ATTEND Nurse Practitioner Family
DX: J98.11 Atelectasis (principal); J69.0 Pneumonitis due to inhalation of food and vomit
CPT/HCPCS: 71046

== ENCOUNTER → 2023-05-10 | Outpatient (CLI) | payer OTHER ==
--- NOTE | 2023-05-10 19:23 | XR ---
EXAMINATION TYPE: XR chest 2V DATE OF EXAM: 05/10/2023 COMPARISON: 02/14/2023 HISTORY: 62-year-old female J18.9, pneumonia TECHNIQUE: Frontal and lateral views FINDINGS: Heart upper limits of normal in size. Aorta and pulmonary vasculature within normal limits. Stable ca lcified nodules in the upper lungs. PEG tube is present. Increasing airspace opacity at the right bas e. Possible trace right effusion. Incidental retained metal staple projecting at the anterior thoraci c inlet soft tissues. IMPRESSION: COPD with worsening pneumonia at the right base.
== END | disposition home or self-care (01) ==
LOC: RADXRMAIN 13:35
PROVIDERS: ATTEND Family Medicine
DX: J44.0 Chronic obstructive pulmonary disease with (acute) lower respiratory infection (principal)
CPT/HCPCS: 71046

== ENCOUNTER 2023-05-11 13:24 | Inpatient (IN) | payer OTHER ==
[2023-05-11] MEDS ORDERED: PNEUMONIA PROTOCOL UTILIZED 1 EACH MISC PO PRN (13:52)
--- NOTE | 2023-05-11 13:58 | ED ---
Recheck HPI - General Chief Complaint: Recheck/Abnormal Lab/Rx Stated Complaint: Pneumonia, sent by pcp for admit Time Seen by Provider: 05/11/23 13:30 Source: patient, RN notes reviewed Mode of arrival: ambulatory Limitations: no limitations - History of Present Illness Initial Comments: This is a 62-year-old female who presents to the emergency department per the instruction of her primary care provider for admission. States that she had a chest x-ray done on an outpatient basis yesterday demonstrating pneumonia in the right lung. She just finished a two-week course of Augmentin 4 days ago for pneumonia, and states that she was on doxycycline prior to this. Due to her being on 2 antibiotics recently and still having a persistent infection, her PCP instructed her to come here for admission and IV antibiotics. Patient states that she had severe right-sided chest pain yesterday. She is also experiencing a productive cough with green sputum and shortness of breath. Denies any fevers, chills, sore throat, palpitations, abdominal pain, nausea, vomiting, diarrhea, back pain, or headaches. - Related Data Home Medications Medication Instructions Recorded Confirmed Apixaban [Eliquis] 5 mg PEG/G-TUBE BID 06/23/21 05/11/23 Aspirin 81 mg PEG/G-TUBE DAILY 06/23/21 05/11/23 Gabapentin Oral Soln [Neurontin 900 mg PEG/G-TUBE TID 06/23/21 05/11/23 Oral Soln] HYDROcodone/APAP 10-325MG [[place] 1.5 - 2 tab PEG/G-TUBE Q4H PRN 06/23/21 05/11/23 10-325] Levothyroxine Sodium [Synthroid] 75 mcg PEG/G-TUBE DAILY 06/23/21 05/11/23 Allergies Allergy/AdvReac Type Severity Reaction Status Date / Time Sulfa (Sulfonamide Allergy Throat Verified 05/11/23 16:11 Antibiotics) itching sulfamethoxazole Allergy Throat Verified 05/11/23 16:11 [From Bactrim] itching trimethoprim [From Bactrim] Allergy Throat Verified 05/11/23 16:11 itching Review of Systems ROS Statement: Those systems with pertinent positive or pertinent negative responses have been documented in the HPI. ROS Other: All systems not noted in ROS Statement are negative. 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 ( no saliva as result) WITH CHEMO & RADIATION [place] 2002,aspiration pneumonia History of Any Multi-Drug Resistant Organisms: MRSA Date of last positivie culture/infection: 03/19/23 MDRO Source:: Sputum Past Surgical History: Adenoidectomy, Appendectomy, Bladder Surgery, Hysterectomy, Tonsillectomy, Tubal Ligation Additional Past Surgical History / Comment(s): NECK DISECTION, BLADDER SUSPENSION, HEEL SPURS, 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 Past Psychological History: No Psychological Hx Reported Smoking Status: Former smoker Past Alcohol Use History: None Reported Past Drug Use History: None Reported - Past Family History Father Family Medical History: Cancer Additional Family Medical History / Comment(s): NON-HODGKINS LYMPHOMA General Exam Limitations: no limitations General appearance: alert, in no apparent distress Head exam: Present: atraumatic, normocephalic, normal inspection Respiratory exam: Present: rhonchi, decreased breath sounds, prolonged expiratory Cardiovascular Exam: Present: regular rate, normal rhythm, normal heart sounds. Absent: systolic murmur, diastolic murmur, rubs, gallop, clicks Neurological exam: Present: alert, oriented X3, CN II-XII intact Psychiatric exam: Present: normal affect, normal mood Skin exam: Present: warm, dry, intact, normal color. Absent: rash Course Vital Signs 05/11/23 05/11/23 13:26 16:44 Temperature 98.6 F Pulse Rate 79 88 Respiratory 20 16 Rate Blood Pressure 97/69 103/81 O2 Sat by Pulse 99 99 Oximetry Medical Decision Making - Medical Decision Making This is a 62-year-old female who presents to the emergency department for coughing and shortness of breath. Was pt. sent in by a medical professional or institution? @ -Her PCP Did you speak to anyone other than the patient for history? @ -No Did you review nursing and triage notes? @ -Yes, and I agree, it is accurate with regards to the patient's symptoms. Were old charts reviewed? @ -No Differential Diagnosis? @ -Differential Dyspnea: Coronary syndrome, arrhythmia, tamponade, asthma, COPD, pulmonary embolism, pneumonia, pneumothorax, pulmonary effusion, anaphylaxis, diabetic ketoacidosis, flailed chest, pulmonary contusion, diaphragmatic rupture, anemia, neuromuscular, this is not meant to be an all-inclusive list. EKG interpreted by me (3pts min.)? @ -EKG interpreted by me demonstrating the following: Sinus rhythm. Ventricular rate 67 beats per minute, MI interval 162 ms, QRS duration 88 ms, QTC 388 ms. X-rays interpreted by me (1pt min.)? @ -Chest x-ray obtained. My interpretation identifies a right lower lobe infiltrate. CT interpreted by me (1pt min.)? @ -Not obtained U/S interpreted by me (1pt. min.)? @ -Not obtained What testing was considered but not performed? (CT, X-rays, U/S, labs)? Why? @ -None What meds were considered but not given? Why? @ -None Did you discuss the management of the patient with other professionals? @ -Yes, Dr. Cr, who accepts the patient for admission. Did you reconcile home meds? @ -Yes Was smoking cessation discussed for >3mins.? @ -No Was critical care preformed (if so, how long)? @ -No Were there social determinants of health that impacted care today? How? (Homelessness, low income, unemployed, alcoholism, drug addiction, transportation, low edu. Level, literacy, decrease access to med. care, residential, rehab)? @ -No Was there de-escalation of care discussed even if they declined? (Discuss DNR or withdrawal of care, Hospice)? @ -No What co-morbidities impacted this encounter? (DM, HTN, Smoking, COPD, CAD, Can cer, CVA, Hep., AIDS, mental health diagnosis, sleep apnea, morbid obesity)? @ -COPD Was patient admitted / discharged? @ -Admitted. Lab work obtained and found to be nonactionable. Chest x-ray obtained revealing a stable right lower lobe infiltrate. Patient admitted to medicine for failed outpatient management of pneumonia. Blood and sputum cultures were obtained per pneumonia protocol. Legionella, CRP, and procalcitonin testing ordered as well with results pending at the time of admission. She was started on IV Zosyn and azithromycin for management. Consults placed for pulmonology and infectious disease per the admitting team's request. Undiagnosed new problem with uncertain prognosis? @ -None Drug Therapy requiring intensive monitoring for toxicity (Heparin, Nitro, Insulin, Cardizem)? @ -None Were any procedures done? @ -None Diagnosis/symptom? @ -Pneumonia, failed outpatient management Acute, or Chronic, or Acute on Chronic? @ -Acute Uncomplicated (without systemic symptoms) or Complicated (systemic symptoms)? @ -Uncomplicated Side effects of treatment? @ -None Exacerbation, Progression, or Severe Exacerbation] @ -Not applicable Poses a threat to life or bodily function? @ -Yes This case was discussed in detail with the attending ED physician, Dr. Laboy. Presentation, findings, and treatment plan discussed in detail as well. - Lab Data Result diagrams: 05/11/23 14:09 05/11/23 14:09 Lab Results 05/11/23 05/11/23 05/11/23 Range/Units 14:09 14:09 14:09 WBC 8.1 (3.8-10.6) k/uL RBC 4.05 (3.80-5.40) m/uL Hgb 13.2 (11.4-16.0) gm/dL Hct 39.8 (34.0-46.0) % MCV 98.4 (80.0-100.0) fL MCH 32.6 (25.0-35.0) pg MCHC 33.1 (31.0-37.0) g/dL RDW 14.6 (11.5-15.5) % Plt Count 158 (150-450) k/uL MPV 10.9 Neutrophils % 71 % Lymphocytes % 17 % Monocytes % 8 % Eosinophils % 2 % Basophils % 0 % Neutrophils # 5.7 (1.3-7.7) k/uL Lymphocytes # 1.4 (1.0-4.8) k/uL Monocytes # 0.6 (0-1.0) k/uL Eosinophils # 0.2 (0-0.7) k/uL Basophils # 0.0 (0-0.2) k/uL PT 10.0 (9.0-12.0) sec INR 0.9 (<1.2) APTT 30.1 H (22.0-30.0) sec Sodium 136 L (137-145) mmol/L Potassium 4.6 (3.5-5.1) mmol/L Chloride 94 L (98-107) mmol/L Carbon Dioxide 35 H (22-30) mmol/L Anion Gap 7 mmol/L BUN 18 H (7-17) mg/dL Creatinine 0.30 L (0.52-1.04) mg/dL Est GFR (CKD-EPI)AfAm >90 (>60 ml/min/1.73 sqM) Est GFR (CKD-EPI)NonAf >90 (>60 ml/min/1.73 sqM) Glucose 89 (74-99) mg/dL Plasma Lactic Acid French (0.7-2.0) mmol/L Calcium 9.4 (8.4-10.2) mg/dL Total Bilirubin 0.4 (0.2-1.3) mg/dL AST 42 H (14-36) U/L ALT 34 (4-34) U/L Alkaline Phosphatase 90 (38-126) U/L Troponin I (0.000-0.034) ng/mL C-Reactive Protein (<1.0) mg/dL NT-Pro-B Natriuret Pep 203 pg/mL Total Protein 7.3 (6.3-8.2) g/dL Albumin 3.9 (3.5-5.0) g/dL 05/11/23 05/11/23 05/11/23 Range/Units 14:09 14:09 14:09 WBC (3.8-10.6) k/uL RBC (3.80-5.40) m/uL Hgb (11.4-16.0) gm/dL Hct (34.0-46.0) % MCV (80.0-100.0) fL MCH (25.0-35.0) pg MCHC (31.0-37.0) g/dL RDW (11.5-15.5) % Plt Count (150-450) k/uL MPV Neutrophils % % Lymphocytes % % Monocytes % % Eosinophils % % Basophils % % Neutrophils # (1.3-7.7) k/uL Lymphocytes # (1.0-4.8) k/uL Monocytes # (0-1.0) k/uL Eosinophils # (0-0.7) k/uL Basophils # (0-0.2) k/uL PT (9.0-12.0) sec INR (<1.2) APTT (22.0-30.0) sec Sodium (137-145) mmol/L Potassium (3.5-5.1) mmol/L Chloride (98-107) mmol/L Carbon Dioxide (22-30) mmol/L Anion Gap mmol/L BUN (7-17) mg/dL Creatinine (0.52-1.04) mg/dL Est GFR (CKD-EPI)AfAm (>60 ml/min/1.73 sqM) Est GFR (CKD-EPI)NonAf (>60 ml/min/1.73 sqM) Glucose (74-99) mg/dL Plasma Lactic Acid French 1.0 (0.7-2.0) mmol/L Calcium (8.4-10.2) mg/dL Total Bilirubin (0.2-1.3) mg/dL AST (14-36) U/L ALT (4-34) U/L Alkaline Phosphatase (38-126) U/L Troponin I <0.012 (0.000-0.034) ng/mL C-Reactive Protein 18.1 H (<1.0) mg/dL NT-Pro-B Natriuret Pep pg/mL Total Protein (6.3-8.2) g/dL Albumin (3.5-5.0) g/dL - Radiology Data Radiology results: report reviewed, image reviewed Disposition Clinical Impression: Pneumonia, Failure of outpatient treatment Disposition: ADMITTED IP TO THIS HOSP
--- NOTE | 2023-05-11 14:09 | XR ---
EXAMINATION TYPE: XR chest 2V DATE OF EXAM: 05/11/2023 COMPARISON: 05/10/2023 TECHNIQUE: PA and lateral views submitted. HISTORY: Difficulty breathing FINDINGS: A right lower lobe infiltrate and small effusion. Calcified granuloma right upper lobe. Biapical pleu ral thickening. Underlying COPD. Heart size normal. Suggestion of a PEG tube. Patellar staple overlyi ng the airway. Remote left clavicular displaced fracture. Chronic deformity of the left thoracic cavi ty. IMPRESSION: 1. Stable right lower lobe infiltrate correlate for pneumonia with small effusion.
[2023-05-11 14:53] LABS: Basophils % (A) 0 %; Eosinophils # (A) 0.2 k/uL (0-0.7); Eosinophils % (A) 2 %; HCT 39.8 % (34.0-46.0); HGB 13.2 gm/dL (11.4-16.0); Lymphocytes # (A) 1.4 k/uL (1.0-4.8); Lymphocytes % (A) 17 %; MCH 32.6 pg (25.0-35.0); MCHC 33.1 g/dL (31.0-37.0); MCV 98.4 fL (80.0-100.0); Mean Platelet Volume 10.9; Monocytes # (A) 0.6 k/uL (0-1.0); Monocytes % (A) 8 %; Neutrophils # (A) 5.7 k/uL (1.3-7.7); Neutrophils % (A) 71 %; Platelet Count 158 k/uL (150-450); RBC 4.05 m/uL (3.80-5.40); RDW 14.6 % (11.5-15.5); WBC 8.1 k/uL (3.8-10.6)
[2023-05-11 15:08] LABS: INR 0.9 (<1.2); Partial Thromboplastin Time 30.1 sec (22.0-30.0)
[2023-05-11 15:15] LABS: ALT 34 U/L (4-34); AST 42 U/L (14-36); African American GFR (CKD) >90 (>60 ml/min/1.73 sqM); Albumin 3.9 g/dL (3.5-5.0); Alkaline Phosphatase 90 U/L (38-126); Anion Gap 7 mmol/L; Blood Urea Nitrogen 18 mg/dL (7-17); Calcium 9.4 mg/dL (8.4-10.2); Carbon Dioxide 35 mmol/L (22-30); Chloride 94 mmol/L (98-107); Glucose 89 mg/dL (74-99); Non-African American GFR(CKD) >90 (>60 ml/min/1.73 sqM); Potassium 4.6 mmol/L (3.5-5.1); Sodium 136 mmol/L (137-145); Total Bilirubin 0.4 mg/dL (0.2-1.3); Total Protein 7.3 g/dL (6.3-8.2)
[2023-05-11 15:22] LABS: NT-Pro-B-Type Natriuretic Pept 203 pg/mL
[2023-05-11] MEDS ORDERED: AZITHROMYCIN 500 MG in SODIUM CHLORIDE 0.9% 250 ML IVPB STA (15:48)
[2023-05-11] MEDS ORDERED: PIPERACILLIN-TAZOBACTAM 3.375 GM in SODIUM CHLORIDE 0.9% 100 ML IVPB STA (15:48)
[2023-05-11] MEDS ORDERED: HYDROmorphone 0.5 MG/0.5 ML SYRINGE IVP STA (16:02)
[2023-05-11] MEDS ORDERED: ACETAMINOPHEN TAB 325 MG TAB PO PRN (16:21)
[2023-05-11] MEDS ORDERED: ONDANSETRON 4 MG/2 ML VIAL IVP PRN (16:21)
[2023-05-11] MEDS ORDERED: NALOXONE 0.4 MG/ML 1 ML VIAL IV PRN (16:21)
[2023-05-11] MEDS ORDERED: HYDROcodone/APAP 10-325MG 1 EACH TAB PEG/G-TUBE PRN (16:46)
[2023-05-11] MEDS ORDERED: ALBUTEROL NEBULIZED 2.5 MG/3 ML INHALATION PRN (19:06)
[2023-05-11] MEDS: GABAPENTIN 300 MG/6 ML PEG/G-TUBE SCH (20:45)
[2023-05-11] MEDS: APIXABAN 5 MG TAB PEG/G-TUBE SCH (20:47)
[2023-05-11] MEDS: HYDROmorphone 0.5 MG/0.5 ML SYRINGE IVP PRN ×2 (20:47→23:47)
[2023-05-11] MEDS: PIPERACILLIN-TAZOBACTAM 3.375 GM in SODIUM CHLORIDE 0.9% 100 ML IVPB SCH (23:43)
[2023-05-12] MEDS: HYDROmorphone 0.5 MG/0.5 ML SYRINGE IVP PRN ×4 (03:15→13:29)
[2023-05-12] MEDS: GABAPENTIN 300 MG/6 ML PEG/G-TUBE SCH ×4 (08:13→20:57)
[2023-05-12] MEDS ORDERED: AZITHROMYCIN 500 MG in SODIUM CHLORIDE 0.9% 250 ML IVPB SCH (09:00)
[2023-05-12] MEDS: ASPIRIN 81 MG PEG/G-TUBE SCH (09:28)
[2023-05-12] MEDS: PIPERACILLIN-TAZOBACTAM 3.375 GM in SODIUM CHLORIDE 0.9% 100 ML IVPB SCH ×3 (09:28→23:41)
[2023-05-12] MEDS: LEVOTHYROXINE 75 MCG TAB PEG/G-TUBE SCH (09:29)
[2023-05-12] MEDS: APIXABAN 5 MG TAB PEG/G-TUBE SCH ×2 (09:29→20:57)
[2023-05-12] MEDS ORDERED: SODIUM CHLORIDE 0.9% 1,000 ML IV SCH (09:45)
[2023-05-12 10:04] LABS: HGB 11.6 d/dL (12.0-15.0); MCH 30.1 pg (27.0-32.0); MCHC 30.5 d/dL (32.0-37.0); MCV 98.4 FL (80.0-97.0); Mean Platelet Volume 12.9 FL (9.5-12.2); NRBC Per 100 WBC 0 X 10*3/uL (0.00-0.01); Platelet Count 180 X 10*3/uL (140-440); RBC 3.86 X 10*6/uL (4.10-5.20); RDW 15.3 % (11.5-14.5); WBC 5.08 X 10*3/uL (4.50-10.00)
[2023-05-12] MEDS ORDERED: KETOROLAC 15 MG/ML 1 ML VIAL IVP STA (10:26)
[2023-05-12 10:43] LABS: Blood Urea Nitrogen 11.6 mg/dL (9.0-27.0); Calcium 9.3 mg/dL (8.7-10.3); Carbon Dioxide 30.9 mmol/L (21.6-31.8); Chloride 100 mmol/L (96-109); Glucose 88 mg/dL (70-110); Potassium 4.5 mmol/L (3.5-5.5); Sodium 139 mmol/L (135-145)
[2023-05-12] MEDS ORDERED: VANCOMYCIN IV PER PHARMACY 1 EACH MISC MISCELLANE PRN (11:40)
--- NOTE | 2023-05-12 12:07 | P.CONS ---
History of Present Illness - Reason for Consult Consult date: 05/12/23 Pneumonia failed outpatient management Requesting physician: Goldie Jimenez - Chief Complaint Right-sided chest pain and cough x days - History of Present Illness Patient is a 62 year old female with a past medical history significant for squamous cell carcinoma at the base of the tongue and neck and this patient was status post chemoradiation and did have a PEG tube for feeding patient also history of COPD PE and seizure disorder, recently has been dealing with increasing cough and sputum production patient describing spitting to be greenish no hemoptysis also complaining of pain to the right lower chest area describing it to be more of a dull aching to sharp 7-8 out of 10 and no radiation patient denies having any nausea no vomiting or intolerance of tube feeds and no diarrhea patient has been treated with oral Augmentin the outpatient setting without any improvement with a repeat chest x-ray done in the physician office shows right lower lobe pneumonia for the patient was sent to the ER for IV antibiotic therapy, the patient did have a sputum cultures obtained in the outpatient setting on 05/09/2023 which did grow pseudomonas aeruginosa and Streptococcus agalactiae Review of Systems Positive point and negatives has been mentioned in the HPI, complete review of systems was performed and all other systems are negative 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 ( no saliva as result) WITH CHEMO & RADIATION [place] 2002,aspiration pneumonia History of Any Multi-Drug Resistant Organisms: MRSA Year Discovered:: 03/19/23 MDRO Source:: Sputum Past Surgical History: Adenoidectomy, Appendectomy, Bladder Surgery, Hysterectomy, Tonsillectomy, Tubal Ligation Additional Past Surgical History / Comment(s): NECK DISECTION, BLADDER SUSPENSION, HEEL SPURS, 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 Past Psychological History: No Psychological Hx Reported Smoking Status: Former smoker Past Alcohol Use History: None Reported Additional Past Alcohol Use History / Comment(s): quit smoking 1985,smoked about 7 yrs Past Drug Use History: None Reported - Past Family History Father Family Medical History: Cancer Additional Family Medical History / Comment(s): NON-HODGKINS LYMPHOMA Medications and Allergies Home Medications Medication Instructions Recorded Confirmed Type Apixaban [Eliquis] 5 mg PEG/G-TUBE BID 06/23/21 05/11/23 History Aspirin 81 mg PEG/G-TUBE DAILY 06/23/21 05/11/23 History Gabapentin Oral Soln [Neurontin 900 mg PEG/G-TUBE TID 06/23/21 05/11/23 History Oral Soln] HYDROcodone/APAP 10-325MG [[place] 1.5 - 2 tab PEG/G-TUBE Q4H PRN 06/23/21 05/11/23 History 10-325] Levothyroxine Sodium [Synthroid] 75 mcg PEG/G-TUBE DAILY 06/23/21 05/11/23 History Allergies Allergy/AdvReac Type Severity Reaction Status Date / Time Sulfa (Sulfonamide Allergy Throat Verified 05/11/23 16:11 Antibiotics) itching sulfamethoxazole Allergy Throat Verified 05/11/23 16:11 [From Bactrim] itching trimethoprim [From Bactrim] Allergy Throat Verified 05/11/23 16:11 itching Physical Exam Vitals: Vital Signs Temp Pulse Pulse Resp BP BP Pulse Ox 05/12/23 07:00 97.9 F 59 L 17 89/60 97 05/12/23 03:19 97.8 F 74 17 100/61 98 05/11/23 18:50 97.8 F 87 16 111/72 98 05/11/23 16:44 88 16 103/81 99 05/11/23 13:26 98.6 F 79 20 97/69 99 Intake and Output 05/11/23 05/12/23 05/12/23 22:59 06:59 14:59 Other: Voiding Method Toilet # Voids 1 4 Weight 43.091 kg GENERAL DESCRIPTION: Middle-aged female lying in bed, no distress. No tachypnea or accessory muscle of respiration use. HEENT: Shows Pallor , no scleral icterus. Oral mucous membrane is dry. NECK: Trachea central, no thyromegaly. LUNGS: Unlabored breathing. Decreased breath sounds on the base HEART: S1, S2, regular rate and rhythm. No loud murmur ABDOMEN: Soft, no tenderness , guarding or rigidity, no organomegaly EXTREMITIES: No edema of feet. SKIN: No rash, no masses palpable. NEUROLOGICAL: The patient is awake, alert, oriented x3, mood and affect normal. Results CBC & Chem 7: 05/13/23 05:52 05/13/23 05:52 Labs: Abnormal Lab Results - Last 24 Hours (Table) 05/11/23 05/11/23 05/11/23 Range/Units 14:09 14:09 14:09 APTT 30.1 H (22.0-30.0) sec Sodium 136 L (137-145) mmol/L Chloride 94 L (98-107) mmol/L Carbon Dioxide 35 H (22-30) mmol/L BUN 18 H (7-17) mg/dL Creatinine 0.30 L (0.52-1.04) mg/dL AST 42 H (14-36) U/L C-Reactive Protein 18.1 H (<1.0) mg/dL Assessment and Plan (1) Failure of outpatient treatment Current Visit: Yes Status: Acute Code(s): Z78.9 - OTHER SPECIFIED HEALTH STATUS SNOMED Code(s): 371929486 (2) Pneumonia Current Visit: Yes Status: Acute Code(s): J18.9 - PNEUMONIA, UNSPECIFIED ORGANISM SNOMED Code(s): 856207756 Plan: 1patient presented to the hospital with a increasing shortness of breath also have a cough moderate intensity bringing up some greenish sputum failing outpatient oral Augmentin therapy with a sputum culture done on 05/09/2023 did grew pseudomonas aeruginosa and Streptococcus agalactiae 2- we will repeat her sputum for grams and culture check a CRP and procalcitonin level 3-continue with the Zosyn 3.375 g every 8 hours discontinue Zithromax We will follow on clinical condition and cultures to further adjust medication if needed Thank you for this consultation will follow this patient with you Dictation was produced using [employer] dictation software. please excuse any grammatical, word or spelling errors. Time with Patient: Greater than 30
[2023-05-12] MEDS ORDERED: VANCOMYCIN 750 MG in SODIUM CHLORIDE 0.9% 250 ML IVPB ONE (12:30)
--- NOTE | 2023-05-12 12:47 | P.CNPUL ---
History of Present Illness Consult date: 05/12/23 Reason for consult: dyspnea, pneumonia History of present illness: I'm seeing this patient in consultation for episodes of pneumonia. The patient has less for right lower lobe pneumonia. The patient is known as taking care of this patient in the past for recurrent right-sided pneumonia and previous MRSA infection of the right lung. This patient is an ex-smoker. She has a very complicated history of a cancer involving the base of her tongue. 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 The patient underwent surgical resection. Following that, the patient had radical neck dissection, muscle flap, and radiation therapy to her neck that causes significant amount of scarring, dry mouth/xerostomia, and limitation her jaw movement and further complications that required a jaw replacement. Bone graft was obtained from her right lower extremity. For now, she has a limited mouth opening, no teeth, extensive multiple scarring in her soft palate, difficulties with swallowing and difficulties in meeting her caloric requirements. The patient and mainly relying on ensure and boost shakes. the patient has been able to maintain her body weight. Despite being very careful, on and off, she has had episodes of aspiration and reviewing her previous chest x-rays from early 2021 and 2020 has revealed infiltration of the right lung base, a typical location for an aspiration pneumonia/aspiration pneumonitis. The patient does not take any solids. No choking episodes. On a separate note, the patient was also diagnosed having subclavian vein thrombosis, probably another complication of her radiation therapy to her neck, and the patient is currently on long-term anticoagulation with Eliquis. No previous history of cardiac disease. No previous history of DVTs.. No history of any interstitial lung disease and the scarring that are seen in the lung apices related to previous radiation therapy. No childhood asthma. She is not using any pulmonary vascular medications or inhalers for now. Noted the patient is also Covid 19 infection July [id number]. She carries history of recurrent pneumonias. She had a pneumonia in January 2023 and she was hospitalized for a total of 11 days and she was discharged on February 2023. She was treated with Augmentin following that and the repeat chest x-ray was showing a right lower lobe consolidation. Further sputum analysis showed MRSA and the patient was treated with doxycycline. She improved considerably and subsequent chest x-ray shows clearing of the right lung infil trates. Subsequently, the patient became symptomatic again and she was treated through her primary care physician. Sputum was collected on 04/17/2023 that showed strep and other sputum on 05/09/2023 showed Pseudomonas along with strep group B. Review of Systems Constitutional: Reports fatigue, Reports fever Eyes: denies as per HPI, denies blurred vision, denies bulging eye, denies decreased vision, denies diplopia, denies discharge, denies dry eye, denies irritation, denies itching, denies pain, denies photophobia, denies loss of peripheral vision, denies loss of vision, denies tunnel vision/blind spots Ears: deny: decreased hearing, ear discharge, earache, tinnitus Ears, nose, mouth and throat: Reports as per HPI Breasts: absent: as per HPI, change in shape, gynecomastia, masses, nipple discharge, pain, skin changes, swelling Cardiovascular: Reports decreased exercise tolerance, Reports dyspnea on exertion Respiratory: Reports cough, Reports dyspnea Gastrointestinal: Reports as per HPI (Increase risk for aspiration) Genitourinary: Reports as per HPI Menstruation: Reports as per HPI Musculoskeletal: Reports as per HPI Musculoskeletal: absent: ankle pain, ankle stiffness, ankle swelling Integumentary: Reports as per HPI Neurological: Reports as per HPI Psychiatric: Reports as per HPI Endocrine: Reports as per HPI 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 ( no saliva as result) WITH CHEMO & RADIATION [place] 2002,aspiration pneumonia History of Any Multi-Drug Resistant Organisms: MRSA Date of last positivie culture/infection: 03/19/23 MDRO Source:: Sputum Past Surgical History: Adenoidectomy, Appendectomy, Bladder Surgery, Hysterectomy, Tonsillectomy, Tubal Ligation Additional Past Surgical History / Comment(s): NECK DISECTION, BLADDER SUSPENSION, HEEL SPURS, 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 Past Psychological History: No Psychological Hx Reported Smoking Status: Former smoker Past Alcohol Use History: None Reported Additional Past Alcohol Use History / Comment(s): quit smoking 1985,smoked about 7 yrs Past Drug Use History: None Reported - Past Family History Father Family Medical History: Cancer Additional Family Medical History / Comment(s): NON-HODGKINS LYMPHOMA Medications and Allergies Home Medications Medication Instructions Recorded Confirmed Type Apixaban [Eliquis] 5 mg PEG/G-TUBE BID 06/23/21 05/11/23 History Aspirin 81 mg PEG/G-TUBE DAILY 06/23/21 05/11/23 History Gabapentin Oral Soln [Neurontin 900 mg PEG/G-TUBE TID 06/23/21 05/11/23 History Oral Soln] HYDROcodone/APAP 10-325MG [[place] 1.5 - 2 tab PEG/G-TUBE Q4H PRN 06/23/21 05/11/23 History 10-325] Levothyroxine Sodium [Synthroid] 75 mcg PEG/G-TUBE DAILY 06/23/21 05/11/23 History Allergies Allergy/AdvReac Type Severity Reaction Status Date / Time Sulfa (Sulfonamide Allergy Throat Verified 05/11/23 16:11 Antibiotics) itching sulfamethoxazole Allergy Throat Verified 05/11/23 16:11 [From Bactrim] itching trimethoprim [From Bactrim] Allergy Throat Verified 05/11/23 16:11 itching Physical Exam Vitals: Vital Signs Temp Pulse Pulse Resp BP BP Pulse Ox 05/12/23 10:23 62 93/66 05/12/23 09:40 67 18 94/66 05/12/23 07:00 97.9 F 59 L 17 89/60 97 05/12/23 03:19 97.8 F 74 17 100/61 98 05/11/23 18:50 97.8 F 87 16 111/72 98 05/11/23 16:44 88 16 103/81 99 05/11/23 13:26 98.6 F 79 20 97/69 99 Intake and Output 05/11/23 05/12/23 05/12/23 22:59 06:59 14:59 Other: Voiding Method Toilet # Voids 1 4 Weight 43.091 kg 42.8 kg General Appearance the patient is calm and comfortable on room air oxygen and there is no diaphoresis, dyspnea, pallor, or respiratory distress and speech not interrupted by breaths, not cachectic, appears well, and malnourished. HEENT no pursed lip breathing, jugular venous distention, mucous membrane cyanosis, or perioral cyanosis and mallampati classification: class 1; no teeth and the patient has radiation changed in the her neck and muscle flap on her fave and jaw reconstruction. Chest no retractions, rhonchi, hyperinflation, barrel chest, sternocleidomastoid muscle contractions, supraclavicular retractions, intercostal retractions, prolonged expiratory wheezing, or decreased air movement and decreased air movement and (normal) adventitious sounds: rales / crackles: bilaterally: midlung miller. Heart no right ventricular heave, distant heart sounds, or s3 gallop and (normal) jugular vein and vein: jugular venous distention: by 0cm. GI bowel sounds: hyperactive (borborygmi) and diminished or absent. Extremities no cyanosis, clubbing, or edema; surgical harvesting of skin and bone from the RLE. Neurologic no somnolence, confusion, or decreased mental status. Assisstive Devices: ambulates with no assitive devices. Gait and Mobility: gait WNL and full weight bearing.Skin: General Appearance normal and (normal) normal except as noted. Results - Laboratory Findings CBC and BMP: 05/12/23 06:19 05/12/23 06:19 PT/INR, D-dimer PT 10.0 sec (9.0-12.0) 05/11/23 14:09 INR 0.9 (<1.2) 05/11/23 14:09 Abnormal lab findings: Abnormal Labs 05/11/23 05/11/23 05/11/23 14:09 14:09 14:09 RBC Hgb MCV MCHC RDW MPV APTT 30.1 H Sodium 136 L Chloride 94 L Carbon Dioxide 35 H BUN 18 H Creatinine 0.30 L BUN/Creatinine Ratio AST 42 H C-Reactive Protein 18.1 H 05/12/23 05/12/23 06:19 06:19 RBC 3.86 L Hgb 11.6 L MCV 98.4 H MCHC 30.5 L RDW 15.3 H MPV 12.9 H APTT Sodium Chloride Carbon Dioxide BUN Creatinine 0.5 L BUN/Creatinine Ratio 23.20 H AST C-Reactive Protein 10.80 H - Diagnostic Findings Chest x-ray: image reviewed Assessment and Plan Plan: Recurrent aspiration pneumonia - The patient has had recurrent respiratory tract infection. The patient was diagnosed having MRSA pneumonia on multiple occasions including a positive sputum sample from 03/19/2023 treated with doxycycline. She had completed several courses of antibiotics and she improved and subsequently she was in fected with strep and Pseudomonas and this is based on the sputum samples collected on 05/09/2023. She has a right lower lobe consolidation. Her comorbid conditions are multiple. 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 Is also partially affecting her speech Laryngeal papillomatosis -underlying periodic endoscopies with resections at [facility]. Previous history of pulmonary embolism and the patient is currently on anticoag ulation with Eliquis Hypothyroidism History of seizure disorder Plan We'll cover the patient with accommodation of Zosyn and vancomycin Consult infectious disease Pulmonary toileting and deep breathing Provide incentive spirometer We'll monitor chest x-ray outcome We'll continue to follow
--- NOTE | 2023-05-12 13:36 | P.HPIM ---
History of Present Illness H&P Date: 05/12/23 Chief Complaint: Shortness of breath, cough * 62-year-old lady with past medical history significant for squamous cell carcinoma of tongue, history of pulmonary embolism, COPD, previous history of MRSA presented to the emergency department with complaints of shortness of breath. * Patient was sent in on instructions of her primary care physician secondary to an outpatient chest x-ray done which showed worsening infiltrate in lung. Patient has been on outpatient antibiotic including Augmentin, and doxycycline and completed approximately 2 week course of antibiotic. Patient had been complaining pleuritic chest pain cough, green sputum production and shortness of breath * She denied associated fever, chills, palpitations, nausea vomiting diarrhea or abdominal pain * Chest x-ray obtained on admission showed right lower lobe infiltrate with small effusion * Workup initiated in ER including hematology which included normal WBC count hemoglobin 13.2 platelet count within normal limits differential within normal limits. Serum chemistry showed sodium of 136 chloride 94 be on 18 creatinine 0.3 CRP of 18 N-terminal proBNP of 203 * Patient admitted to medical floor with consultation from pulmonary medicine and infectious disease REVIEW OF SYSTEMS: Cough, sputum production, shortness of breath, pleuritic chest pain CONSTITUTIONAL: No fever, no malaise, no fatigue. HEENT: No recent visual problems or hearing problems. Denied any sore throat. CARDIOVASCULAR: No orthopnea, PND, no palpitations, no syncope. PULMONARY: Cough, sputum production, shortness of breath GASTROINTESTINAL: No diarrhea, no nausea, no vomiting, no abdominal pain. NEUROLOGICAL: No headaches, no weakness, no numbness. HEMATOLOGICAL: Denies any bleeding or petechiae. GENITOURINARY: Denies any burning micturition, frequency, or urgency. MUSCULOSKELETAL/RHEUMATOLOGICAL: Denies any joint pain, swelling, or any muscle pain. ENDOCRINE: Denies any polyuria or polydipsia. The rest of the 14-point review of systems is negative. PHYSICAL EXAMINATION: GENERAL: The patient is alert and oriented x3, ill appearance, underweight HEENT: Pupils are round and equally reacting to light. EOMI. CARDIOVASCULAR: S1 and S2 present. No murmurs, rubs, or gallops. PULMONARY: Chest is clear to auscultation, no wheezing or crackles. ABDOMEN: Soft, nontender, nondistended, normoactive bowel sounds. No palpable organomegaly. MUSCULOSKELETAL: No joint swelling or deformity. EXTREMITIES: No cyanosis, clubbing, or pedal edema. NEUROLOGICAL: Gross neurological examination did not reveal any focal deficits. SKIN: No rashes. 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 ( no saliva as result) WITH CHEMO & RADIATION [place] 2002,aspiration pneumonia History of Any Multi-Drug Resistant Organisms: MRSA Date of last positivie culture/infection: 03/19/23 MDRO Source:: Sputum Past Surgical History: Adenoidectomy, Appendectomy, Bladder Surgery, Hysterectomy, Tonsillectomy, Tubal Ligation Additional Past Surgical History / Comment(s): NECK DISECTION, BLADDER SUSPENSION, HEEL SPURS, 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 Past Psychological History: No Psychological Hx Reported Smoking Status: Former smoker Past Alcohol Use History: None Reported Additional Past Alcohol Use History / Comment(s): quit smoking 1985,smoked about 7 yrs Past Drug Use History: None Reported - Past Family History Father Family Medical History: Cancer Additional Family Medical History / Comment(s): NON-HODGKINS LYMPHOMA Medications and Allergies Home Medications Medication Instructions Recorded Confirmed Type Apixaban [Eliquis] 5 mg PEG/G-TUBE BID 06/23/21 05/11/23 History Aspirin 81 mg PEG/G-TUBE DAILY 06/23/21 05/11/23 History Gabapentin Oral Soln [Neurontin 900 mg PEG/G-TUBE TID 06/23/21 05/11/23 History Oral Soln] HYDROcodone/APAP 10-325MG [[place] 1.5 - 2 tab PEG/G-TUBE Q4H PRN 06/23/21 05/11/23 History 10-325] Levothyroxine Sodium [Synthroid] 75 mcg PEG/G-TUBE DAILY 06/23/21 05/11/23 History Allergies Allergy/AdvReac Type Severity Reaction Status Date / Time Sulfa (Sulfonamide Allergy Throat Verified 05/11/23 16:11 Antibiotics) itching sulfamethoxazole Allergy Throat Verified 05/11/23 16:11 [From Bactrim] itching trimethoprim [From Bactrim] Allergy Throat Verified 05/11/23 16:11 itching Physical Exam Vitals: Vital Signs Temp Pulse Pulse Resp BP BP Pulse Ox 05/12/23 07:00 97.9 F 59 L 17 89/60 97 05/12/23 03:19 97.8 F 74 17 100/61 98 05/11/23 18:50 97.8 F 87 16 111/72 98 05/11/23 16:44 88 16 103/81 99 05/11/23 13:26 98.6 F 79 20 97/69 99 Intake and Output 05/11/23 05/12/23 05/12/23 22:59 06:59 14:59 Other: Voiding Method Toilet # Voids 1 4 Weight 43.091 kg Results CBC & Chem 7: 05/12/23 06:19 05/12/23 06:19 Labs: Abnormal Lab Results - Last 24 Hours (Table) 05/11/23 05/11/23 05/11/23 Range/Units 14:09 14:09 14:09 APTT 30.1 H (22.0-30.0) sec Sodium 136 L (137-145) mmol/L Chloride 94 L (98-107) mmol/L Carbon Dioxide 35 H (22-30) mmol/L BUN 18 H (7-17) mg/dL Creatinine 0.30 L (0.52-1.04) mg/dL AST 42 H (14-36) U/L C-Reactive Protein 18.1 H (<1.0) mg/dL Assessment and Plan Assessment: Assessment and plan RIGHT lower lobe pneumonia, with the current aspiration pneumonia History of squamous cell carcinoma of tongue History of radiation pneumonitis Dysphagia Status post feeding tube in place History of thromboembolism Chronic pain syndrome * In regards to pneumonia Continue patient on broad-spectrum antibiotic including Zosyn, azithromycin, consult obtained from infectious disease pulmonary medicine * Urine Legionella, sputum cultures, blood cultures ordered * Consult obtained from infectious disease and pulmonary medicine * Consultations obtained from dietitian to initiate tube feeding * In regards to history of pulmonary embolism, continue patient on Eliquis * In regards to chronic pain continue current regimen including gabapentin, [place] * CODE STATUS is full code
[2023-05-12] MEDS: HYDROmorphone 1 MG/ML 1 ML SYRINGE IVP PRN ×3 (17:05→23:40)
[2023-05-12] MEDS: MIDODRINE 5 MG TAB PO SCH (17:06)
[2023-05-12] MEDS ORDERED: VANCOMYCIN 750 MG in SODIUM CHLORIDE 0.9% 250 ML IVPB SCH (22:00)
[2023-05-13] MEDS: HYDROmorphone 1 MG/ML 1 ML SYRINGE IVP PRN ×6 (03:03→21:05)
[2023-05-13] MEDS: MIDODRINE 5 MG TAB PO SCH ×3 (06:27→17:07)
[2023-05-13 07:02] LABS: African American GFR (CKD) >90 (>60 ml/min/1.73 sqM); Anion Gap 9 mmol/L; Blood Urea Nitrogen 21 mg/dL (7-17); Calcium 9.3 mg/dL (8.4-10.2); Carbon Dioxide 28 mmol/L (22-30); Chloride 100 mmol/L (98-107); Glucose 89 mg/dL (74-99); Non-African American GFR(CKD) >90 (>60 ml/min/1.73 sqM); Potassium 4.9 mmol/L (3.5-5.1); Sodium 137 mmol/L (137-145)
[2023-05-13] MEDS ORDERED: VANCOMYCIN IV PER PHARMACY 1 EACH MISC MISCELLANE PRN (07:18)
[2023-05-13] MEDS: CEFEPIME 2 GM in SODIUM CHLORIDE 0.9% 100 ML IVPB SCH ×2 (09:06→16:10)
[2023-05-13] MEDS: LEVOTHYROXINE 75 MCG TAB PEG/G-TUBE SCH (09:07)
[2023-05-13] MEDS: ASPIRIN 81 MG PEG/G-TUBE SCH (09:07)
[2023-05-13] MEDS: APIXABAN 5 MG TAB PEG/G-TUBE SCH ×2 (09:07→21:00)
[2023-05-13] MEDS ORDERED: RX INFO: IV CONTRAST WAS GIVEN 1 EACH MISC MISCELLANE PRN (09:07)
[2023-05-13] MEDS ORDERED: SODIUM CHLORIDE 0.9% 1,000 ML IV SCH (09:15)
[2023-05-13] MEDS: GABAPENTIN 300 MG/6 ML PEG/G-TUBE SCH ×3 (09:37→20:59)
[2023-05-13] MEDS: VANCOMYCIN 750 MG in SODIUM CHLORIDE 0.9% 250 ML IVPB SCH ×2 (09:37→20:59)
[2023-05-13] MEDS: LIDOCAINE 5% PATCH TOPICAL SCH (09:39)
[2023-05-13 10:06] LABS: HCT 40.7 % (37.2-46.3); HGB 12.6 d/dL (12.0-15.0); MCH 30.2 pg (27.0-32.0); MCV 97.6 FL (80.0-97.0); Mean Platelet Volume 12.3 FL (9.5-12.2); NRBC Per 100 WBC 0 X 10*3/uL (0.00-0.01); Platelet Count 229 X 10*3/uL (140-440); RBC 4.17 X 10*6/uL (4.10-5.20); RDW 14.9 % (11.5-14.5); WBC 6.14 X 10*3/uL (4.50-10.00)
--- NOTE | 2023-05-13 10:21 | CT ---
EXAMINATION TYPE: CT chest w con CT DLP: 105.3 mGycm, Automated exposure control for dose reduction was used. DATE OF EXAM: 05/13/2023 10:09 AM COMPARISON: Radiograph 05/11/2023. CLINICAL INDICATION:Female, 62 years old with history of History of malignancy, admitted with pneumon ia; PHH, pneumonia/ ro ca TECHNIQUE: Multiple axial images were obtained through the chest. Sagittal and coronal reformats were created for review. Contrast used:80 mL of Isovue 300 with IV Contrast (None if empty) Oral contrast used: (None if empty) FINDINGS: LUNGS/ PLEURA: No focal consolidation, pneumothorax or pleural effusion. Streaky atelectasis in the u pper lungs bilaterally. Right upper lung calcified adenoma. Patchy airspace opacities along the right lower lung AIRWAY: Patent and unremarkable. HEART: Size within normal limits. MEDIASTINUM: No gross evidence of adenopathy. VASCULATURE: No aortic aneurysm. No evidence for filling defect within the pulmonary arterial vascul ature to suggest embolus. There is narrowing of the left brachiocephalic vein as it crosses the clavi vijaya series 3 image 9. This results in multiple collaterals to the anterior chest. MUSCULOSKELETAL: Mild disc degeneration changes are present throughout the thoracolumbar spine. SOFT TISSUES/LYMPH NODES: Unremarkable. LOWER NECK: No significant findings. UPPER ABDOMEN: PEG tube appears in appropriate position within the gastric lumen. IMPRESSION: 1. Scattered areas of atelectasis with airspace opacities in the right lower lung concerning for inf ectious/inflammatory process. No discrete mass or lymphadenopathy visualized. 2. Narrowing of the left brachiocephalic vein as it crosses the clavicle with multiple collaterals t o the anterior chest.
--- NOTE | 2023-05-13 12:02 | P.PN ---
Subjective Progress Note Date: 05/13/23 I'm seeing this patient in consultation for episodes of pneumonia. The patient has less for right lower lobe pneumonia. The patient is known as taking care of this patient in the past for recurrent right-sided pneumonia and previous MRSA infection of the right lung. This patient is an ex-smoker. She has a very complicated history of a cancer involving the base of her tongue. 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 The patient underwent surgical resection. Following that, the patient had radical neck dissection, muscle flap, and radiation therapy to her neck that causes significant amount of scarring, dry mouth/xerostomia, and limitation her jaw movement and further complications that required a jaw replacement. Bone graft was obtained from her right lower extremity. For now, she has a limited mouth opening, no teeth, extensive multiple scarring in her soft palate, difficulties with swallowing and difficulties in meeting her caloric requirements. The patient and mainly relying on ensure and boost shakes. the patient has been able to maintain her body weight. Despite being very careful, on and off, she has had episodes of aspiration and reviewing her previous chest x-rays from early 2021 and 2020 has revealed infiltration of the right lung base, a typical location for an aspiration pneumonia/aspiration pneumonitis. The patient does not take any solids. No choking episodes. On a separate note, the patient was also diagnosed having subclavian vein thrombosis, probably another complication of her radiation therapy to her neck, and the patient is currently on long-term anticoagulation with Eliquis. No previous history of cardiac disease. No previous history of DVTs.. No history of any interstitial lung disease and the scarring that are seen in the lung apices related to previous radiation therapy. No childhood asthma. She is not using any pulmonary vascular medications or inhalers for now. Noted the patient is also Covid 19 infection July [id number]. She carries history of recurrent pneumonias. She had a pneumonia in January 2023 and she was hospitalized for a total of 11 days and she was discharged on February 2023. She was treated with Augmentin following that and the repeat chest x-ray was showing a right lower lobe consolidation. Further sputum analysis showed MRSA and the patient was treated with doxycycline. She improved consi derably and subsequent chest x-ray shows clearing of the right lung infiltrates. Subsequently, the patient became symptomatic again and she was treated through her primary care physician. Sputum was collected on 04/17/2023 that showed strep and other sputum on 05/09/2023 showed Pseudomonas along with strep group B. On today's evaluation of 05/13/2023, the patient remains on room air oxygen, cur rently covered with a combination of vancomycin and cefepime. She has a congested cough. Unable to bring up much sputum. D-dimer was at 0.4. The patient has a white cell count of 6 with a hemoglobin 12.6. BUN is at 21 with a creatinine of 0.38 and a sodium level is at 137. She is ambulating. No nausea or vomiting. No diarrhea. She continues to receive enteral feeding for nutritional support. No altered mentation. Objective - Vital Signs Vital signs: Vital Signs Temp 98.3 F 05/13/23 08:39 Pulse 81 05/13/23 08:39 Resp 18 05/13/23 08:39 BP 107/72 05/13/23 08:39 Pulse Ox 96 05/13/23 08:39 FiO2 Intake & Output 05/12/23 05/13/23 05/13/23 18:59 06:59 18:59 Intake Total 540 Balance 540 Weight 42.8 kg Intake: Tube Feeding 500 Other 40 Other: Voiding Method Toilet - Exam General Appearance the patient is calm and comfortable on room air oxygen and there is no diaphoresis, dyspnea, pallor, or respiratory distress and speech not interrupted by breaths, not cachectic, appears well, and malnourished. HEENT no pursed lip breathing, jugular venous distention, mucous membrane cyanosis, or perioral cyanosis and mallampati classification: class 1; no teeth and the patient has radiation changed in the her neck and muscle flap on her fave and jaw reconstruction. Chest no retractions, rhonchi, hyperinflation, barrel chest, sternocleidomastoid muscle contractions, supraclavicular retractions, intercostal retractions, prolonged expiratory wheezing, or decreased air movement and decreased air movement and (normal) adventitious sounds: rales / crackles: bilaterally: midlung miller. Heart no right ventricular heave, distant heart sounds, or s3 gallop and (normal) jugular vein and vein: jugular venous distention: by 0cm. GI bowel sounds: hyperactive (borborygmi) and diminished or absent. Extremities no cyanosis, clubbing, or edema; surgical harvesting of skin and bone from the RLE. Neurologic no somnolence, confusion, or decreased mental status. Assisstive Devices: ambulates with no assitive devices. Gait and Mobility: gait WNL and full weight bearing.Skin: General Appearance normal and (normal) normal except as noted. - Labs CBC & Chem 7: 05/13/23 05:52 05/13/23 05:52 Labs: Abnormal Lab Results - Last 24 Hours (Table) 05/13/23 05/13/23 Range/Units 05:52 05:52 MCV 97.6 H (80.0-97.0) FL MCHC 31.0 L (32.0-37.0) d/dL RDW 14.9 H (11.5-14.5) % MPV 12.3 H (9.5-12.2) FL BUN 21 H (7-17) mg/dL Creatinine 0.38 L (0.52-1.04) mg/dL Microbiology - Last 24 Hours (Table) 05/11/23 14:15 Blood Culture Gram Stain - Preliminary Blood 05/11/23 14:30 Blood Culture - Preliminary Blood 05/11/23 14:09 Gram Stain - Preliminary Sputum Assessment and Plan Plan: Recurrent aspiration pneumonia - The patient has had recurrent respiratory tract infection. The patient was diagnosed having MRSA pneumonia on multiple occasions including a positive sputum sample from 03/19/2023 treated with doxycycline. She had completed several courses of antibiotics and she improved and subsequently she was infected with strep and Pseudomonas and this is based on the sputum samples collected on 05/09/2023. She has a right lower lobe consolidation. Her comorbid conditions are multiple. 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 Is also partially affecting her speech Laryngeal papillomatosis -underlying periodic endoscopies with resections at [facility]. Previous history of pulmonary embolism and the patient is currently on anticoagulation with Eliquis Hypothyroidism History of seizure disorder Plan Patient has pneumonia and the patient is currently on broad-spectrum antibiotics. We'll cover the patient with accommodation of cefepime and vancomycin Consult infectious disease appreciated Pulmonary toileting and deep breathing Provide incentive spirometer We'll monitor chest x-ray outcome, repeat chest x-ray the morning We'll continue to follow
--- NOTE | 2023-05-13 13:23 | P.PN ---
Subjective Progress Note Date: 05/13/23 * 62-year-old lady with past medical history significant for squamous cell carcinoma of tongue, history of pulmonary embolism, COPD, previous history of MRSA presented to the emergency department with complaints of shortness of breath. * Patient was sent in on instructions of her primary care physician secondary to an outpatient chest x-ray done which showed worsening infiltrate in lung. Patient has been on outpatient antibiotic including Augmentin, and doxycycline and completed approximately 2 week course of antibiotic. Patient had been complaining pleuritic chest pain cough, green sputum production and shortness of breath * She denied associated fever, chills, palpitations, nausea vomiting diarrhea or abdominal pain * Chest x-ray obtained on admission showed right lower lobe infiltrate with smal l effusion * Workup initiated in ER including hematology which included normal WBC count hemoglobin 13.2 platelet count within normal limits differential within normal limits. Serum chemistry showed sodium of 136 chloride 94 be on 18 creatinine 0.3 CRP of 18 N-terminal proBNP of 203 * Patient admitted to medical floor with consultation from pulmonary medicine and infectious disease * 05/13/23: Patient seen and evaluated bedside, patient continued to complain of cough, pleuritic chest pain on right side. Blood pressure systolic running between 9200 however patient asymptomatic. Blood cultures reviewed gram- positive cocci noted staph aureus Objective - Vital Signs Vital signs: Vital Signs Temp 98.3 F 05/13/23 08:39 Pulse 76 05/13/23 12:59 Resp 15 05/13/23 12:59 BP 92/67 05/13/23 12:59 Pulse Ox 97 05/13/23 12:59 FiO2 Intake & Output 05/12/23 05/13/23 05/13/23 18:59 06:59 18:59 Intake Total 540 Balance 540 Weight 42.8 kg 43.4 kg Intake: Tube Feeding 500 Other 40 Other: Voiding Method Toilet - Exam PHYSICAL EXAMINATION: GENERAL: The patient is alert and oriented x3, ill appearance, underweight HEENT: Pupils are round and equally reacting to light. EOMI. CARDIOVASCULAR: S1 and S2 present. No murmurs, rubs, or gallops. PULMONARY: Chest is clear to auscultation, no wheezing or crackles. ABDOMEN: Soft, nontender, nondistended, normoactive bowel sounds. No palpable organomegaly. MUSCULOSKELETAL: No joint swelling or deformity. EXTREMITIES: No cyanosis, clubbing, or pedal edema. NEUROLOGICAL: Gross neurological examination did not reveal any focal deficits. SKIN: No rashes. - Labs CBC & Chem 7: 05/13/23 05:52 05/13/23 05:52 Labs: Abnormal Lab Results - Last 24 Hours (Table) 05/13/23 05/13/23 Range/Units 05:52 05:52 MCV 97.6 H (80.0-97.0) FL MCHC 31.0 L (32.0-37.0) d/dL RDW 14.9 H (11.5-14.5) % MPV 12.3 H (9.5-12.2) FL BUN 21 H (7-17) mg/dL Creatinine 0.38 L (0.52-1.04) mg/dL Microbiology - Last 24 Hours (Table) 05/11/23 14:15 Blood Culture Gram Stain - Preliminary Blood 05/11/23 14:30 Blood Culture - Preliminary Blood 05/11/23 14:09 Gram Stain - Preliminary Sputum Assessment and Plan Assessment: Assessment and plan RIGHT lower lobe pneumonia, with the current aspiration pneumonia Staph aureus bacteremia History of squamous cell carcinoma of tongue History of radiation pneumonitis Dysphagia Status post feeding tube in place History of thromboembolism Chronic pain syndrome * In regards to pneumonia Continue patient on broad-spectrum antibiotic on cefepime and vancomycin, infectious disease and pulmonary medicine following * Urine Legionella, sputum cultures, blood cultures show gram-positive cocci staph aureus * Consultations obtained from dietitian to initiate tube feeding * In regards to history of pulmonary embolism, continue patient on Eliquis * In regards to chronic pain continue current regimen including gabapentin, [place] * CT chest ordered without IV contrast to evaluate for intrathoracic mass/malignancy/embolism * CODE STATUS is full code
--- NOTE | 2023-05-13 13:55 | P.PN ---
Subjective Progress Note Date: 05/13/23 Principal diagnosis: Pneumonia and bacteremia Patient is a 62 year old female with a past medical history significant for squamous cell carcinoma at the base of the tongue and neck and this patient was status post chemoradiation and did have a PEG tube for feeding patient also history of COPD PE and seizure disorder, recently has been dealing with increasing cough and sputum production, feeling outpatient oral Augmentin therapy with evidence of right lower lobe pneumonia, with a sputum culture done 05/09/2023 grew pseudomonas aeruginosa. On today's evaluation that is 05/13/2023, the patient continues to be afebrile, the patient is breathing comfortably on room air, the patient right-sided chest pain slightly decrease in intensity, still complaining of cough and bringing up sputum, patient denies abdominal pain and no nausea/vomiting /diarrhea. Sputum is growing staph aureus and gram-negative blood culture with MRSA Objective - Vital Signs Vital signs: Vital Signs Temp 98.3 F 05/13/23 08:39 Pulse 76 05/13/23 12:59 Resp 15 05/13/23 12:59 BP 92/67 05/13/23 12:59 Pulse Ox 97 05/13/23 12:59 FiO2 Intake & Output 05/12/23 05/13/23 05/13/23 18:59 06:59 18:59 Intake Total 540 300 Balance 540 300 Weight 42.8 kg 43.4 kg Intake: Tube Feeding 500 250 Other 40 50 Other: Voiding Method Toilet - Exam GENERAL DESCRIPTION: Middle-age female up in bed in no distress RESPIRATORY SYSTEM: Unlabored breathing , decreased breath sounds at bases HEART: S1 S2 regular rate and rhythm , ABDOMEN: Soft , no tenderness EXTREMITIES: No edema feet - Labs CBC & Chem 7: 05/13/23 05:52 05/13/23 05:52 Labs: Abnormal Lab Results - Last 24 Hours (Table) 05/13/23 05/13/23 Range/Units 05:52 05:52 MCV 97.6 H (80.0-97.0) FL MCHC 31.0 L (32.0-37.0) d/dL RDW 14.9 H (11.5-14.5) % MPV 12.3 H (9.5-12.2) FL BUN 21 H (7-17) mg/dL Creatinine 0.38 L (0.52-1.04) mg/dL Microbiology - Last 24 Hours (Table) 05/11/23 14:09 Gram Stain - Preliminary Sputum Sputum Culture - Preliminary Presumptive Staph aureus Gram Neg Bacilli 05/11/23 14:15 Blood Culture Gram Stain - Preliminary Blood 05/11/23 14:30 Blood Culture - Preliminary Blood Assessment and Plan (1) Failure of outpatient treatment Current Visit: Yes Status: Acute Code(s): Z78.9 - OTHER SPECIFIED HEALTH STATUS SNOMED Code(s): 172918517 (2) Pneumonia Current Visit: Yes Status: Acute Code(s): J18.9 - PNEUMONIA, UNSPECIFIED ORGANISM SNOMED Code(s): 155795625 (3) MRSA bacteremia Current Visit: Yes Status: Acute Code(s): R78.81 - BACTEREMIA; B95.62 - METHICILLIN RESIS STAPH INFCT CAUSING DISEASES CLASSD ELSR SNOMED Code(s): 23500782115352290 Plan: 1patient presented to the hospital with a increasing shortness of breath also have a cough moderate intensity bringing up some greenish sputum failing outpatient oral Augmentin therapy with a sputum culture done on 05/09/2023 did grew pseudomonas aeruginosa and Streptococcus agalactiae 2- sputum is growing staph aureus and gram-negative blood culture with MRSA 3-blood cultures will be repeated document clearance of bacteremia. 4discontinue Zosyn patient has been started on vancomycin and cefepime will likely need outpatient IV antibiotic therapy Dictation was produced using [employer] dictation software. please excuse any grammatical, word or spelling errors. Time with Patient: Less than 30
[2023-05-13] MEDS ORDERED: CEFEPIME 1 GM in SODIUM CHLORIDE 0.9% 50 ML IVPB STA (17:32)
[2023-05-14] MEDS: CEFEPIME 2 GM in SODIUM CHLORIDE 0.9% 100 ML IVPB SCH ×3 (00:21→17:19)
[2023-05-14] MEDS: HYDROmorphone 1 MG/ML 1 ML SYRINGE IVP PRN ×6 (00:55→22:18)
[2023-05-14] MEDS: MIDODRINE 5 MG TAB PO SCH ×3 (05:50→17:19)
[2023-05-14] MEDS: APIXABAN 5 MG TAB PEG/G-TUBE SCH ×2 (08:28→21:12)
[2023-05-14] MEDS: ASPIRIN 81 MG PEG/G-TUBE SCH (08:28)
[2023-05-14] MEDS: LEVOTHYROXINE 75 MCG TAB PEG/G-TUBE SCH (08:29)
[2023-05-14] MEDS: LIDOCAINE 5% PATCH TOPICAL SCH (08:29)
[2023-05-14] MEDS: GABAPENTIN 300 MG/6 ML PEG/G-TUBE SCH ×3 (09:23→21:12)
[2023-05-14] MEDS: VANCOMYCIN 750 MG in SODIUM CHLORIDE 0.9% 250 ML IVPB SCH ×2 (09:33→21:12)
[2023-05-14 11:44] LABS: HGB 13.4 gm/dL (11.4-16.0); Hypochromasia Slight; MCHC 31.2 g/dL (31.0-37.0); MCV 99.2 fL (80.0-100.0); Mean Platelet Volume 9.3; Platelet Count 246 k/uL (150-450); RBC 4.33 m/uL (3.80-5.40); RDW 14.2 % (11.5-15.5); WBC 5.8 k/uL (3.8-10.6)
--- NOTE | 2023-05-14 11:54 | P.PN ---
Subjective Progress Note Date: 05/14/23 * 62-year-old lady with past medical history significant for squamous cell carcinoma of tongue, history of pulmonary embolism, COPD, previous history of MRSA presented to the emergency department with complaints of shortness of breath. * Patient was sent in on instructions of her primary care physician secondary to an outpatient chest x-ray done which showed worsening infiltrate in lung. Patient has been on outpatient antibiotic including Augmentin, and doxycycline and completed approximately 2 week course of antibiotic. Patient had been complaining pleuritic chest pain cough, green sputum production and shortness of breath * She denied associated fever, chills, palpitations, nausea vomiting diarrhea or abdominal pain * Chest x-ray obtained on admission showed right lower lobe infiltrate with smal l effusion * Workup initiated in ER including hematology which included normal WBC count hemoglobin 13.2 platelet count within normal limits differential within normal limits. Serum chemistry showed sodium of 136 chloride 94 be on 18 creatinine 0.3 CRP of 18 N-terminal proBNP of 203 * Patient admitted to medical floor with consultation from pulmonary medicine and infectious disease * 05/13/23: Patient seen and evaluated bedside, patient continued to complain of cough, pleuritic chest pain on right side. Blood pressure systolic running between 90-100 however patient asymptomatic. Blood cultures reviewed gram- positive cocci noted staph aureus * 05/14/23 : Patient seen and evaluated bedside, patient had multiple questions today. Son at bedside as well. Blood culture findings discussed with marci velasco. Blood culture grew MRSA, sputum culture grew MRSA and pseudomonas. Continue cefepime and vancomycin. Appreciate input from infectious disease. CT chest reviewed results discussed with patient. No pulmonary embolism noted no thoracic mass noted. Pleuritic chest pain has improved. Pulmonary medicine following as well . CBC shows normal white cell count. Serum chemistry pending Objective - Vital Signs Vital signs: Vital Signs Temp 97.7 F 05/14/23 07:00 Pulse 73 05/14/23 07:00 Resp 16 05/14/23 07:00 BP 95/63 05/14/23 07:00 Pulse Ox 93 L 05/14/23 07:00 FiO2 Intake & Output 05/13/23 05/14/23 05/14/23 18:59 06:59 18:59 Intake Total 600 640 Balance 600 640 Weight 43.4 kg Intake: Tube Feeding 500 580 Other 100 60 Other: Voiding Method Toilet Toilet # Voids 2 - Exam PHYSICAL EXAMINATION: GENERAL: The patient is alert and oriented x3, ill appearance, underweight HEENT: Pupils are round and equally reacting to light. EOMI. CARDIOVASCULAR: S1 and S2 present. No murmurs, rubs, or gallops. PULMONARY: Chest is clear to auscultation, no wheezing or crackles. ABDOMEN: Soft, nontender, nondistended, normoactive bowel sounds. No palpable organomegaly. MUSCULOSKELETAL: No joint swelling or deformity. EXTREMITIES: No cyanosis, clubbing, or pedal edema. NEUROLOGICAL: Gross neurological examination did not reveal any focal deficits. SKIN: No rashes. - Labs CBC & Chem 7: 05/14/23 11:17 05/13/23 05:52 Labs: Microbiology - Last 24 Hours (Table) 05/11/23 14:09 Gram Stain - Final Sputum Sputum Culture - Final Methicillin resist S. aureus Pseudomonas aeruginosa 05/11/23 14:15 Blood Culture Gram Stain - Preliminary Blood Blood Culture - Preliminary Presumptive MRSA 05/11/23 14:30 Blood Culture - Preliminary Blood Assessment and Plan Assessment: Assessment and plan * RIGHT lower lobe pneumonia, with the current aspiration pneumonia * Staph aureus bacteremia * History of squamous cell carcinoma of tongue * History of radiation pneumonitis * Dysphagia * Status post feeding tube in place * History of thromboembolism * Chronic pain syndrome * In regards to pneumonia Continue patient on broad-spectrum antibiotic on cefepime and vancomycin, infectious disease and pulmonary medicine following * Urine Legionella, sputum cultures, blood cultures show gram-positive cocci staph aureus * Consultations obtained from dietitian to initiate tube feeding * In regards to history of pulmonary embolism, continue patient on Eliquis * In regards to chronic pain continue current regimen including gabapentin, [place] * CT chest ordered without IV contrast to evaluate for intrathoracic mass/malignancy/embolism * CODE STATUS is full code
[2023-05-14 12:04] LABS: African American GFR (CKD) >90 (>60 ml/min/1.73 sqM); Anion Gap 8 mmol/L; Blood Urea Nitrogen 16 mg/dL (7-17); Calcium 9.5 mg/dL (8.4-10.2); Carbon Dioxide 31 mmol/L (22-30); Chloride 102 mmol/L (98-107); Glucose 104 mg/dL (74-99); Non-African American GFR(CKD) >90 (>60 ml/min/1.73 sqM); Potassium 4.4 mmol/L (3.5-5.1); Sodium 141 mmol/L (137-145)
--- NOTE | 2023-05-14 14:01 | P.PN ---
Subjective Progress Note Date: 05/14/23 I'm seeing this patient in consultation for episodes of pneumonia. The patient has less for right lower lobe pneumonia. The patient is known as taking care of this patient in the past for recurrent right-sided pneumonia and previous MRSA infection of the right lung. This patient is an ex-smoker. She has a very complicated history of a cancer involving the base of her tongue. 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 The patient underwent surgical resection. Following that, the patient had radical neck dissection, muscle flap, and radiation therapy to her neck that causes significant amount of scarring, dry mouth/xerostomia, and limitation her jaw movement and further complications that required a jaw replacement. Bone graft was obtained from her right lower extremity. For now, she has a limited mouth opening, no teeth, extensive multiple scarring in her soft palate, difficulties with swallowing and difficulties in meeting her caloric requirements. The patient and mainly relying on ensure and boost shakes. the patient has been able to maintain her body weight. Despite being very careful, on and off, she has had episodes of aspiration and reviewing her previous chest x-rays from early 2021 and 2020 has revealed infiltration of the right lung base, a typical location for an aspiration pneumonia/aspiration pneumonitis. The patient does not take any solids. No choking episodes. On a separate note, the patient was also diagnosed having subclavian vein thrombosis, probably another complication of her radiation therapy to her neck, and the patient is currently on long-term anticoagulation with Eliquis. No previous history of cardiac disease. No previous history of DVTs.. No history of any interstitial lung disease and the scarring that are seen in the lung apices related to previous radiation therapy. No childhood asthma. She is not using any pulmonary vascular medications or inhalers for now. Noted the patient is also Covid 19 infection July [id number]. She carries history of recurrent pneumonias. She had a pneumonia in January 2023 and she was hospitalized for a total of 11 days and she was discharged on February 2023. She was treated with Augmentin following that and the repeat chest x-ray was showing a right lower lobe consolidation. Further sputum analysis showed MRSA and the patient was treated with doxycycline. She improved consid erably and subsequent chest x-ray shows clearing of the right lung infiltrates. Subsequently, the patient became symptomatic again and she was treated through her primary care physician. Sputum was collected on 04/17/2023 that showed strep and other sputum on 05/09/2023 showed Pseudomonas along with strep group B. On today's evaluation of 05/13/2023, the patient remains on room air oxygen, currently covered with a combination of vancomycin and cefepime. She has a congested cough. Unable to bring up much sputum. D-dimer was at 0.4. The patient has a white cell count of 6 with a hemoglobin 12.6. BUN is at 21 with a creatinine of 0.38 and a sodium level is at 137. She is ambulating. No nausea or vomiting. No diarrhea. She continues to receive enteral feeding for nutritional support. No altered mentation. The patient is seen today 05/14/2023 in follow-up on the regular medical floor. She is currently resting comfortably in bed. Maintain O2 saturations in the 90s on room air. She's been afebrile. Hemodynamically stable. Blood cultures are positive for presumptive MRSA. Sputum culture is positive for MRSA and pseudomonas aeruginosa. White count 5.8. Hemoglobin 13.4. Platelets 246. Sodium 141. Potassium 4.4. Bicarb 31. BUN 16. Creatinine 0.33. She remains on vancomycin and cefepime. He nourished via tube feedings. PEG tube was placed in January 2023. Objective - Vital Signs Vital signs: Vital Signs Temp 97.7 F 05/14/23 07:00 Pulse 73 05/14/23 07:00 Resp 16 05/14/23 07:00 BP 95/63 05/14/23 07:00 Pulse Ox 97 05/14/23 12:56 FiO2 Intake & Output 05/13/23 05/14/23 05/14/23 18:59 06:59 18:59 Intake Total 600 640 Balance 600 640 Weight 43.4 kg 43.3 kg Intake: Tube Feeding 500 580 Other 100 60 Other: Voiding Method Toilet Toilet # Voids 2 - Exam GENERAL EXAM: Alert, pleasant 62-year-old female, on room air, comfortable in no apparent distress. HEAD: Normocephalic. EYES: Normal reaction of pupils, equal size. NOSE: Clear with pink turbinates. THROAT: No erythema or exudates. NECK: Radiation changes noted to the neck with muscle flap. No masses, no JVD. CHEST: No chest wall deformity. LUNGS: Equal air entry with no crackles, wheeze, rhonchi or dullness. CVS: S1 and S2 normal with no audible murmur, regular rhythm. ABDOMEN: PEG tube in place. Exit site clean and dry. No hepatosplenomegaly, normal bowel sounds, no guarding or rigidity. SPINE: No scoliosis or deformity SKIN: No rashes CENTRAL NERVOUS SYSTEM: No focal deficits, tone is normal in all 4 extremities. EXTREMITIES: There is no peripheral edema. No clubbing, no cyanosis. Peripheral pulses are intact. - Labs CBC & Chem 7: 05/14/23 11:17 05/14/23 11:17 Labs: Abnormal Lab Results - Last 24 Hours (Table) 05/14/23 Range/Units 11:17 Carbon Dioxide 31 H (22-30) mmol/L Creatinine 0.33 L (0.52-1.04) mg/dL Glucose 104 H (74-99) mg/dL Microbiology - Last 24 Hours (Table) 05/11/23 14:09 Gram Stain - Final Sputum Sputum Culture - Final Methicillin resist S. aureus Pseudomonas aeruginosa 05/11/23 14:15 Blood Culture Gram Stain - Preliminary Blood Blood Culture - Preliminary Presumptive MRSA 05/11/23 14:30 Blood Culture - Preliminary Blood Assessment and Plan Assessment: The patient has had recurrent respiratory tract infection. The patient was diagnosed having MRSA pneumonia on multiple occasions including this admission with MRSA and Pseudomonas aeruginosa in her sputum. Presumptive MRSA in her b lood cultures. She has a right lower lobe consolidation. 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 Is also partially affecting her speech Laryngeal papillomatosis -underlying periodic endoscopies with resections at [facility]. Previous history of pulmonary embolism and the patient is currently on anticoagulation with Eliquis Hypothyroidism History of seizure disorder Plan: The patient was seen and evaluated Labs and medications reviewed Microbiology noted Continued on vancomycin and cefepime Continue with tube feedings for nutritional support Currently stable and on room air We will continue to follow I have personally seen and examined the patient, performed the documentation and the assessment and plan as written. Number of minutes spent on the visit: 10.
--- NOTE | 2023-05-14 17:10 | P.PN ---
Subjective Progress Note Date: 05/14/23 Principal diagnosis: Pneumonia and bacteremia Patient is a 62 year old female with a past medical history significant for squamous cell carcinoma at the base of the tongue and neck and this patient was status post chemoradiation and did have a PEG tube for feeding patient also history of COPD PE and seizure disorder, recently has been dealing with increasing cough and sputum production, feeling outpatient oral Augmentin therapy with evidence of right lower lobe pneumonia, with a sputum culture done 05/09/2023 grew pseudomonas aeruginosa. On today's evaluation that is 05/14/2023, the patient denies any fever or any chills, the patient is breathing comfortably on room air and no need for supplemental oxygen, patient denies abdominal pain and no nausea/vomiting /diarrhea,the patient denies chest pain , the cough is decreased intensity and less productive no hemoptysis Sputum is growing staph aureus and pseudomonas aeruginosa, the patient blood culture with MRSA Objective - Vital Signs Vital signs: Vital Signs Temp 97.7 F 05/14/23 07:00 Pulse 73 05/14/23 07:00 Resp 16 05/14/23 07:00 BP 95/63 05/14/23 07:00 Pulse Ox 93 L 05/14/23 07:00 FiO2 Intake & Output 05/13/23 05/14/23 05/14/23 18:59 06:59 18:59 Intake Total 600 640 Balance 600 640 Weight 43.4 kg Intake: Tube Feeding 500 580 Other 100 60 Other: Voiding Method Toilet Toilet # Voids 2 - Exam GENERAL DESCRIPTION: Middle-age female up in bed in no distress RESPIRATORY SYSTEM: Unlabored breathing , decreased breath sounds at bases HEART: S1 S2 regular rate and rhythm , ABDOMEN: Soft , no tenderness EXTREMITIES: No edema feet - Labs CBC & Chem 7: 05/14/23 11:17 05/14/23 11:17 Labs: Microbiology - Last 24 Hours (Table) 05/11/23 14:09 Gram Stain - Final Sputum Sputum Culture - Final Methicillin resist S. aureus Pseudomonas aeruginosa 05/11/23 14:15 Blood Culture Gram Stain - Preliminary Blood Blood Culture - Preliminary Presumptive MRSA 05/11/23 14:30 Blood Culture - Preliminary Blood Assessment and Plan (1) Failure of outpatient treatment Current Visit: Yes Status: Acute Code(s): Z78.9 - OTHER SPECIFIED HEALTH STATUS SNOMED Code(s): 127114609 (2) Pneumonia Current Visit: Yes Status: Acute Code(s): J18.9 - PNEUMONIA, UNSPECIFIED ORGANISM SNOMED Code(s): 116195885 (3) MRSA bacteremia Current Visit: Yes Status: Acute Code(s): R78.81 - BACTEREMIA; B95.62 - METHICILLIN RESIS STAPH INFCT CAUSING DISEASES CLASSD ELSWHR SNOMED Code(s): 95337152941616724 Plan: 1patient presented to the hospital with a increasing shortness of breath also have a cough moderate intensity bringing up some greenish sputum failing outpatient oral Augmentin therapy with a sputum culture done on 05/09/2023 did grew pseudomonas aeruginosa and Streptococcus agalactiae 2- sputum is growing MRSA and pseudomonas aeruginosa blood culture with MRSA 3-blood cultures has been repeated document clearance of bacteremia. 4patient to continue with vancomycin and cefepime and monitor clinical course closely Dictation was produced using tagWALLET dictation software. please excuse any grammatical, word or spelling errors. Time with Patient: Less than 30
[2023-05-15] MEDS: CEFEPIME 2 GM in SODIUM CHLORIDE 0.9% 100 ML IVPB SCH ×4 (01:04→23:39)
[2023-05-15] MEDS: HYDROmorphone 1 MG/ML 1 ML SYRINGE IVP PRN ×6 (02:09→23:39)
[2023-05-15] MEDS: MIDODRINE 5 MG TAB PO SCH ×3 (05:51→17:02)
[2023-05-15] MEDS ORDERED: VANCOMYCIN TROUGH DUE 1 EACH MISC MISCELLANE ONE (07:00)
[2023-05-15] MEDS: APIXABAN 5 MG TAB PEG/G-TUBE SCH ×2 (09:15→19:47)
[2023-05-15] MEDS: LEVOTHYROXINE 75 MCG TAB PEG/G-TUBE SCH (09:15)
[2023-05-15] MEDS: LIDOCAINE 5% PATCH TOPICAL SCH (09:15)
[2023-05-15] MEDS: ASPIRIN 81 MG PEG/G-TUBE SCH (09:15)
[2023-05-15] MEDS: GABAPENTIN 300 MG/6 ML PEG/G-TUBE SCH ×3 (09:28→21:22)
[2023-05-15] MEDS: VANCOMYCIN 750 MG in SODIUM CHLORIDE 0.9% 250 ML IVPB SCH ×3 (09:37→23:39)
--- NOTE | 2023-05-15 10:22 | CDI ---
Documentation Clarification Form Date: 05/15/2023 10:00:35 AM From: Geetha Michaud RN, CCDS Admit Date: 05/11/2023 04:40:00 PM Patient Name: Jessica Bobo Visit Number: [id number] Discharge Date: ATTENTION: The Clinical Documentation Specialists (CDI) and [facility] Coding Staff appreciate your assistance in clarifying documentation. Please respond to the clarification below the line at the bottom and electronically sign. The CDI & [facility] Coding staff will review the response and follow-up if needed. Please note: Queries are made part of the Legal Health Record. If you have any questions, please contact the author of this message via ITS. Dr. Sixto Cr The Registered Dietitian assessment on 05/12/23 & 05/14/23 indicates this patient meets criteria for malnutrition severe, chronic. Based on this information and the findings below, is there an additional diagnosis that is clinically appropriate for this patient? 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 She MRSA pneumonia on multiple occasions including this admission with MRSA and Pseudomonas aeruginosa in her sputum. Presumptive MRSA in her blood cultures. She has a right lower lobe consolidation. Current BMI: 17.7 RD Consult Assessment: Difficulty chewing/swallowing. Nutrition intake Poor. NPO, EN for nutrition support Height 5 ft. 2 in Weight 43.091 kg She has Dysphagia Decreased intake Involuntary weight loss of 10% of UBW X 4 months severe fat and muscle depletion Temporalis muscle buccal fat pads Duration: 1.5 years Nutrition Diagnosis: Malnutrition Severe, chronic Treatment: Two Dev HN 1,200 ML Free water flush 30 ml every 4 hours Is there an additional diagnosis that is clinically appropriate for this patient? [ ] Mild Protein-Calorie Malnutrition [ ] Moderate Protein-Calorie Malnutrition [ y] Severe Protein-Calorie Malnutrition [ ] Other condition, please specify [ ] Unable to Determine Reference: Using the ASPEN Guidelines, Undernutrition (Malnutrition) is characterized by at least two of the following six findings. The severity can be determined based on the criteria listed below. Malnutrition Characteristics for Moderate and Severe Malnutrition Type of Malnutrition Acute Illness or Injury Chronic Illness Degree of Malnutrition Non-severe (moderate) Malnutrition Severe Malnutrition Non-severe (moderate) Malnutrition Severe Malnutrition (Template Last Revised: February 2023) MTDD
[2023-05-15 11:14] LABS: HCT 43.8 % (37.2-46.3); HGB 13.6 d/dL (12.0-15.0); MCH 30.7 pg (27.0-32.0); MCHC 31.1 d/dL (32.0-37.0); MCV 98.9 FL (80.0-97.0); Mean Platelet Volume 11.9 FL (9.5-12.2); NRBC Per 100 WBC 0 X 10*3/uL (0.00-0.01); Platelet Count 269 X 10*3/uL (140-440); RBC 4.43 X 10*6/uL (4.10-5.20); RDW 14.8 % (11.5-14.5); WBC 7.31 X 10*3/uL (4.50-10.00)
[2023-05-15 11:16] LABS: BUN/Creat Ratio 45.75 Ratio (12.00-20.00); Blood Urea Nitrogen 18.3 mg/dL (9.0-27.0); Calcium 9.4 mg/dL (8.7-10.3); Carbon Dioxide 31.5 mmol/L (21.6-31.8); Chloride 103 mmol/L (96-109); Glucose 103 mg/dL (70-110); Potassium 4.5 mmol/L (3.5-5.5); Sodium 143 mmol/L (135-145)
--- NOTE | 2023-05-15 12:47 | P.PN ---
Subjective Progress Note Date: 05/15/23 I'm seeing this patient in consultation for episodes of pneumonia. The patient has less for right lower lobe pneumonia. The patient is known as taking care of this patient in the past for recurrent right-sided pneumonia and previous MRSA infection of the right lung. This patient is an ex-smoker. She has a very complicated history of a cancer involving the base of her tongue. 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 The patient underwent surgical resection. Following that, the patient had radical neck dissection, muscle flap, and radiation therapy to her neck that causes significant amount of scarring, dry mouth/xerostomia, and limitation her jaw movement and further complications that required a jaw replacement. Bone graft was obtained from her right lower extremity. For now, she has a limited mouth opening, no teeth, extensive multiple scarring in her soft palate, difficulties with swallowing and difficulties in meeting her caloric requirements. The patient and mainly relying on ensure and boost shakes. the patient has been able to maintain her body weight. Despite being very careful, on and off, she has had episodes of aspiration and reviewing her previous chest x-rays from early 2021 and 2020 has revealed infiltration of the right lung base, a typical location for an aspiration pneumonia/aspiration pneumonitis. The patient does not take any solids. No choking episodes. On a separate note, the patient was also diagnosed having subclavian vein thrombosis, probably another complication of her radiation therapy to her neck, and the patient is currently on long-term anticoagulation with Eliquis. No previous history of cardiac disease. No previous history of DVTs.. No history of any interstitial lung disease and the scarring that are seen in the lung apices related to previous radiation therapy. No childhood asthma. She is not using any pulmonary vascular medications or inhalers for now. Noted the patient is also Covid 19 infection July 272021. She carries history of recurrent pneumonias. She had a pneumonia in January 2023 and she was hospitalized for a total of 11 days and she was discharged on February 2023. She was treated with Augmentin following that and the repeat chest x-ray was showing a right lower lobe consolidation. Further sputum analysis showed MRSA and the patient was treated with doxycycline. She improved consid erably and subsequent chest x-ray shows clearing of the right lung infiltrates. Subsequently, the patient became symptomatic again and she was treated through her primary care physician. Sputum was collected on 04/17/2023 that showed strep and other sputum on 05/09/2023 showed Pseudomonas along with strep group B. On today's evaluation of 05/13/2023, the patient remains on room air oxygen, currently covered with a combination of vancomycin and cefepime. She has a congested cough. Unable to bring up much sputum. D-dimer was at 0.4. The patient has a white cell count of 6 with a hemoglobin 12.6. BUN is at 21 with a creatinine of 0.38 and a sodium level is at 137. She is ambulating. No nausea or vomiting. No diarrhea. She continues to receive enteral feeding for nutritional support. No altered mentation. The patient is seen today 05/14/2023 in follow-up on the regular medical floor. She is currently resting comfortably in bed. Maintain O2 saturations in the 90s on room air. She's been afebrile. Hemodynamically stable. Blood cultures are positive for presumptive MRSA. Sputum culture is positive for MRSA and pseudomonas aeruginosa. White count 5.8. Hemoglobin 13.4. Platelets 246. Sodium 141. Potassium 4.4. Bicarb 31. BUN 16. Creatinine 0.33. She remains on vancomycin and cefepime. He nourished via tube feedings. PEG tube was placed in January 2023. The patient is seen today 05/15/2023 in follow-up on the regular medical floor. She is currently sitting up in a chair. Awake and alert in no acute distress. Maintaining O2 saturations in the 90s on room air. Blood culture positive for MRSA. Sputum culture positive for MRSA and pseudomonas aeruginosa. Currently on vancomycin and cefepime. White count 7.3. Hemoglobin 13.6. Platelets 269. Sodium 143. Potassium 4.5. Bicarb 32. BUN 18. Creatinine 0.4. Glucose 103. Vancomycin trough 10.2. Anticoagulated with Eliquis. Being nourished with TwoCal HN bolus feedings via PEG tube. Objective - Vital Signs Vital signs: Vital Signs Temp 97.8 F 05/15/23 07:00 Pulse 54 L 05/15/23 07:00 Resp 16 05/15/23 07:00 BP 98/65 05/15/23 10:33 Pulse Ox 92 L 05/15/23 07:00 FiO2 Intake & Output 05/14/23 05/15/23 05/15/23 18:59 06:59 18:59 Weight 43.3 kg 44 kg Other: Voiding Method Toilet - Exam GENERAL EXAM: Alert, pleasant very thin 62-year-old female, on room air, in no apparent distress. HEAD: Normocephalic. EYES: Normal reaction of pupils, equal size. NOSE: Clear with pink turbinates. THROAT: No erythema or exudates. NECK: Radiation changes noted to the neck with muscle flap. No masses, no JVD. CHEST: No chest wall deformity. LUNGS: Equal air entry with no crackles, wheeze, rhonchi or dullness. CVS: S1 and S2 normal with no audible murmur, regular rhythm. ABDOMEN: PEG tube in place. Exit site clean and dry. Normal bowel sounds, no g uarding or rigidity. SPINE: No scoliosis or deformity SKIN: No rashes CENTRAL NERVOUS SYSTEM: No focal deficits, tone is normal in all 4 extremities. EXTREMITIES: There is no peripheral edema. No clubbing, no cyanosis. Peripheral pulses are intact. - Labs CBC & Chem 7: 05/15/23 06:49 05/15/23 06:49 Labs: Abnormal Lab Results - Last 24 Hours (Table) 05/15/23 05/15/23 Range/Units 06:49 06:49 MCV 98.9 H (80.0-97.0) FL MCHC 31.1 L (32.0-37.0) d/dL RDW 14.8 H (11.5-14.5) % Creatinine 0.4 L (0.6-1.5) mg/dL BUN/Creatinine Ratio 45.75 H (12.00-20.00) Ratio Microbiology - Last 24 Hours (Table) 05/11/23 14:15 Blood Culture Gram Stain - Final Blood Blood Culture - Final Methicillin resist S. aureus 05/11/23 14:30 Blood Culture - Preliminary Blood 05/11/23 14:09 Gram Stain - Final Sputum Sputum Culture - Final Methicillin resist S. aureus Pseudomonas aeruginosa Assessment and Plan Assessment: The patient has had recurrent respiratory tract infection. The patient was diagnosed having MRSA pneumonia on multiple occasions including this admission with MRSA and Pseudomonas aeruginosa in her sputum and MRSA in her blood cultures. She has a right lower lobe consolidation. 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 Is also partially affecting her speech Laryngeal papillomatosis -underlying periodic endoscopies with resections at [facility]. Previous history of pulmonary embolism and the patient is currently on anticoagulation with Eliquis Hypothyroidism History of seizure disorder Plan: The patient was seen and evaluated Labs and medications reviewed Continued on vancomycin and cefepime We will order follow-up blood cultures We will continue to follow I have personally seen and examined the patient, performed the documentation and the assessment and plan as written. Number of minutes spent on the visit: 10.
[2023-05-15] MEDS: HYDROcodone/APAP 10-325MG 1 EACH TAB PEG/G-TUBE PRN ×3 (12:59→21:23)
[2023-05-15] MEDS: SODIUM CHLORIDE 0.9% 1,000 ML IV SCH ×2 (13:00→20:34)
--- NOTE | 2023-05-15 13:04 | P.PN ---
Subjective Progress Note Date: 05/15/23 * 62-year-old lady with past medical history significant for squamous cell carcinoma of tongue, history of pulmonary embolism, COPD, previous history of MRSA presented to the emergency department with complaints of shortness of breath. * Patient was sent in on instructions of her primary care physician secondary to an outpatient chest x-ray done which showed worsening infiltrate in lung. Patient has been on outpatient antibiotic including Augmentin, and doxycycline and completed approximately 2 week course of antibiotic. Patient had been complaining pleuritic chest pain cough, green sputum production and shortness of breath * She denied associated fever, chills, palpitations, nausea vomiting diarrhea or abdominal pain * Chest x-ray obtained on admission showed right lower lobe infiltrate with smal l effusion * Workup initiated in ER including hematology which included normal WBC count hemoglobin 13.2 platelet count within normal limits differential within normal limits. Serum chemistry showed sodium of 136 chloride 94 be on 18 creatinine 0.3 CRP of 18 N-terminal proBNP of 203 * Patient admitted to medical floor with consultation from pulmonary medicine and infectious disease * 05/13/23: Patient seen and evaluated bedside, patient continued to complain of cough, pleuritic chest pain on right side. Blood pressure systolic running between 90-100 however patient asymptomatic. Blood cultures reviewed gram- positive cocci noted staph aureus * 05/14/23 : Patient seen and evaluated bedside, patient had multiple questions today. Son at bedside as well. Blood culture findings discussed with marci velasco. Blood culture grew MRSA, sputum culture grew MRSA and pseudomonas. Continue cefepime and vancomycin. Appreciate input from infectious disease. CT chest reviewed results discussed with patient. No pulmonary embolism noted no thoracic mass noted. Pleuritic chest pain has improved. Pulmonary medicine following as well . CBC shows normal white cell count. Serum chemistry pending * 05/15/23: Patient seen and evaluated bedside, patient was noted to be hypotenisve however asymptomatic. Lactate level is within normal limits continue with fluid resuscitation. Patient inquiring about pain medications. K plan discussed potential discharge were 05/18, alt 05/19. Need clearance of blood cultures Objective - Vital Signs Vital signs: Vital Signs Temp 97.8 F 05/15/23 07:00 Pulse 54 L 05/15/23 07:00 Resp 16 05/15/23 07:00 BP 98/65 05/15/23 10:33 Pulse Ox 92 L 05/15/23 07:00 FiO2 Intake & Output 05/14/23 05/15/23 05/15/23 18:59 06:59 18:59 Weight 43.3 kg 44 kg Other: Voiding Method Toilet - Exam PHYSICAL EXAMINATION: GENERAL: The patient is alert and oriented x3, ill appearance, underweight HEENT: Pupils are round and equally reacting to light. EOMI. CARDIOVASCULAR: S1 and S2 present. No murmurs, rubs, or gallops. PULMONARY: Chest is clear to auscultation, no wheezing or crackles. ABDOMEN: Soft, nontender, nondistended, normoactive bowel sounds. No palpable organomegaly. MUSCULOSKELETAL: No joint swelling or deformity. EXTREMITIES: No cyanosis, clubbing, or pedal edema. NEUROLOGICAL: Gross neurological examination did not reveal any focal deficits. SKIN: No rashes. - Labs CBC & Chem 7: 05/15/23 06:49 05/15/23 06:49 Labs: Abnormal Lab Results - Last 24 Hours (Table) 05/15/23 05/15/23 Range/Units 06:49 06:49 MCV 98.9 H (80.0-97.0) FL MCHC 31.1 L (32.0-37.0) d/dL RDW 14.8 H (11.5-14.5) % Creatinine 0.4 L (0.6-1.5) mg/dL BUN/Creatinine Ratio 45.75 H (12.00-20.00) Ratio Microbiology - Last 24 Hours (Table) 05/11/23 14:15 Blood Culture Gram Stain - Final Blood Blood Culture - Final Methicillin resist S. aureus 05/11/23 14:30 Blood Culture - Preliminary Blood 05/11/23 14:09 Gram Stain - Final Sputum Sputum Culture - Final Methicillin resist S. aureus Pseudomonas aeruginosa Assessment and Plan Assessment: Assessment and plan * RIGHT lower lobe pneumonia, with the current aspiration pneumonia MRSA pneumonia * Staph aureus bacteremia * History of squamous cell carcinoma of tongue * History of radiation pneumonitis * Dysphagia * Status post feeding tube in place * History of thromboembolism * Chronic pain syndrome * In regards to pneumonia Continue patient on broad-spectrum antibiotic on cefepime and vancomycin, infectious disease and pulmonary medicine following * Urine Legionella negative, sputum cultures grew MRSA, blood cultures show gram-positive cocci staph aureus, MRSA, repeat blood cultures ordered pending * Consultations obtained from dietitian to initiate tube feeding * In regards to history of pulmonary embolism, continue patient on Eliquis * In regards to chronic pain continue current regimen including gabapentin, [place] * CT chest negative for intrathoracic mass/malignancy/embolism * CODE STATUS is full code
--- NOTE | 2023-05-15 15:18 | P.PN ---
Subjective Progress Note Date: 05/15/23 Principal diagnosis: Pneumonia and bacteremia Patient is a 62 year old female with a past medical history significant for squamous cell carcinoma at the base of the tongue and neck and this patient was status post chemoradiation and did have a PEG tube for feeding patient also history of COPD PE and seizure disorder, recently has been dealing with increasing cough and sputum production, feeling outpatient oral Augmentin therapy with evidence of right lower lobe pneumonia, with a sputum culture done 05/09/2023 grew pseudomonas aeruginosa. On today's evaluation that is 05/15/2023, the patient remains to be afebrile the patient is breathing comfortably on room air, the patient left-sided chest pain has decreased in intensity , the patient cough has decreased in intensity and less productive, patient denies abdominal pain and no nausea/vomiting /diarrhea, feeling better White count is 7.31, creatinine 0.4 , Sputum is growing staph aureus and pseudomonas aeruginosa, the patient blood culture with MRSA, repeat blood culture negative Objective - Vital Signs Vital signs: Vital Signs Temp 97.8 F 05/15/23 07:00 Pulse 54 L 05/15/23 07:00 Resp 16 05/15/23 07:00 BP 98/65 05/15/23 10:33 Pulse Ox 92 L 05/15/23 07:00 FiO2 Intake & Output 05/14/23 05/15/23 05/15/23 18:59 06:59 18:59 Weight 43.3 kg 44 kg Other: Voiding Method Toilet - Exam GENERAL DESCRIPTION: Middle-age female up in bed in no distress RESPIRATORY SYSTEM: Unlabored breathing , decreased breath sounds at bases HEART: S1 S2 regular rate and rhythm , ABDOMEN: Soft , no tenderness EXTREMITIES: No edema feet - Labs CBC & Chem 7: 05/15/23 06:49 05/15/23 06:49 Labs: Abnormal Lab Results - Last 24 Hours (Table) 05/15/23 05/15/23 Range/Units 06:49 06:49 MCV 98.9 H (80.0-97.0) FL MCHC 31.1 L (32.0-37.0) d/dL RDW 14.8 H (11.5-14.5) % Creatinine 0.4 L (0.6-1.5) mg/dL BUN/Creatinine Ratio 45.75 H (12.00-20.00) Ratio Microbiology - Last 24 Hours (Table) 05/11/23 14:09 Legionella Culture - Preliminary Sputum 05/11/23 14:15 Blood Culture Gram Stain - Final Blood Blood Culture - Final Methicillin resist S. aureus 05/11/23 14:30 Blood Culture - Preliminary Blood 05/11/23 14:09 Gram Stain - Final Sputum Sputum Culture - Final Methicillin resist S. aureus Pseudomonas aeruginosa Assessment and Plan (1) Failure of outpatient treatment Current Visit: Yes Status: Acute Code(s): Z78.9 - OTHER SPECIFIED HEALTH STATUS SNOMED Code(s): 825543938 (2) Pneumonia Current Visit: Yes Status: Acute Code(s): J18.9 - PNEUMONIA, UNSPECIFIED ORG ANISM SNOMED Code(s): 870431396 (3) MRSA bacteremia Current Visit: Yes Status: Acute Code(s): R78.81 - BACTEREMIA; B95.62 - METHICILLIN RESIS STAPH INFCT CAUSING DISEASES CLASSD ELSWHR SNOMED Code(s): 76148483414015435 Plan: 1patient presented to the hospital with a increasing shortness of breath also have a cough moderate intensity bringing up some greenish sputum failing outpatient oral Augmentin therapy with a sputum culture done on 05/09/2023 did grew pseudomonas aeruginosa and Streptococcus agalactiae 2- sputum is growing MRSA and pseudomonas aeruginosa blood culture with MRSA 3-blood cultures has been repeated 4patient to continue with vancomycin and cefepime , plan is for PICC line once blood culture has been negative Dictation was produced using [employer] dictation software. please excuse any gramm atical, word or spelling errors. Time with Patient: Less than 30
[2023-05-16] MEDS: HYDROcodone/APAP 10-325MG 1 EACH TAB PEG/G-TUBE PRN ×6 (01:37→23:54)
[2023-05-16] MEDS: HYDROmorphone 1 MG/ML 1 ML SYRINGE IVP PRN ×5 (03:31→22:12)
[2023-05-16] MEDS: MIDODRINE 5 MG TAB PO SCH ×3 (05:37→16:51)
[2023-05-16] MEDS: SODIUM CHLORIDE 0.9% 1,000 ML IV SCH ×2 (05:37→18:19)
[2023-05-16] MEDS: APIXABAN 5 MG TAB PEG/G-TUBE SCH ×2 (08:08→22:12)
[2023-05-16] MEDS: ASPIRIN 81 MG PEG/G-TUBE SCH (08:08)
[2023-05-16] MEDS: CEFEPIME 2 GM in SODIUM CHLORIDE 0.9% 100 ML IVPB SCH ×2 (08:09→15:08)
[2023-05-16] MEDS: LIDOCAINE 5% PATCH TOPICAL SCH (08:09)
[2023-05-16] MEDS: LEVOTHYROXINE 75 MCG TAB PEG/G-TUBE SCH (08:09)
[2023-05-16 09:25] LABS: HCT 37.2 % (37.2-46.3); HGB 11.7 d/dL (12.0-15.0); MCH 30.9 pg (27.0-32.0); MCHC 31.5 d/dL (32.0-37.0); MCV 98.2 FL (80.0-97.0); Mean Platelet Volume 11.9 FL (9.5-12.2); NRBC Per 100 WBC 0 X 10*3/uL (0.00-0.01); Platelet Count 273 X 10*3/uL (140-440); RBC 3.79 X 10*6/uL (4.10-5.20); WBC 9.37 X 10*3/uL (4.50-10.00)
[2023-05-16 09:45] LABS: Blood Urea Nitrogen 18.2 mg/dL (9.0-27.0); Carbon Dioxide 28.6 mmol/L (21.6-31.8); Chloride 104 mmol/L (96-109); Glucose 90 mg/dL (70-110); Potassium 5.8 mmol/L (3.5-5.5); Sodium 138 mmol/L (135-145)
[2023-05-16] MEDS: VANCOMYCIN 750 MG in SODIUM CHLORIDE 0.9% 250 ML IVPB SCH ×3 (10:44→23:17)
[2023-05-16] MEDS: GABAPENTIN 300 MG/6 ML PEG/G-TUBE SCH ×3 (11:02→22:50)
--- NOTE | 2023-05-16 11:20 | P.PN ---
Subjective Progress Note Date: 05/16/23 I'm seeing this patient in consultation for episodes of pneumonia. The patient has less for right lower lobe pneumonia. The patient is known as taking care of this patient in the past for recurrent right-sided pneumonia and previous MRSA infection of the right lung. This patient is an ex-smoker. She has a very complicated history of a cancer involving the base of her tongue. 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 The patient underwent surgical resection. Following that, the patient had radical neck dissection, muscle flap, and radiation therapy to her neck that causes significant amount of scarring, dry mouth/xerostomia, and limitation her jaw movement and further complications that required a jaw replacement. Bone graft was obtained from her right lower extremity. For now, she has a limited mouth opening, no teeth, extensive multiple scarring in her soft palate, difficulties with swallowing and difficulties in meeting her caloric requirements. The patient and mainly relying on ensure and boost shakes. the patient has been able to maintain her body weight. Despite being very careful, on and off, she has had episodes of aspiration and reviewing her previous chest x-rays from early 2021 and 2020 has revealed infiltration of the right lung base, a typical location for an aspiration pneumonia/aspiration pneumonitis. The patient does not take any solids. No choking episodes. On a separate note, the patient was also diagnosed having subclavian vein thrombosis, probably another complication of her radiation therapy to her neck, and the patient is currently on long-term anticoagulation with Eliquis. No previous history of cardiac disease. No previous history of DVTs.. No history of any interstitial lung disease and the scarring that are seen in the lung apices related to previous radiation therapy. No childhood asthma. She is not using any pulmonary vascular medications or inhalers for now. Noted the patient is also Covid 19 infection July [id number]. She carries history of recurrent pneumonias. She had a pneumonia in January 2023 and she was hospitalized for a total of 11 days and she was discharged on February 2023. She was treated with Augmentin following that and the repeat chest x-ray was showing a right lower lobe consolidation. Further sputum analysis showed MRSA and the patient was treated with doxycycline. She improved consid erably and subsequent chest x-ray shows clearing of the right lung infiltrates. Subsequently, the patient became symptomatic again and she was treated through her primary care physician. Sputum was collected on 04/17/2023 that showed strep and other sputum on 05/09/2023 showed Pseudomonas along with strep group B. On today's evaluation of 05/13/2023, the patient remains on room air oxygen, currently covered with a combination of vancomycin and cefepime. She has a congested cough. Unable to bring up much sputum. D-dimer was at 0.4. The patient has a white cell count of 6 with a hemoglobin 12.6. BUN is at 21 with a creatinine of 0.38 and a sodium level is at 137. She is ambulating. No nausea or vomiting. No diarrhea. She continues to receive enteral feeding for nutritional support. No altered mentation. The patient is seen today 05/14/2023 in follow-up on the regular medical floor. She is currently resting comfortably in bed. Maintain O2 saturations in the 90s on room air. She's been afebrile. Hemodynamically stable. Blood cultures are positive for presumptive MRSA. Sputum culture is positive for MRSA and pseudomonas aeruginosa. White count 5.8. Hemoglobin 13.4. Platelets 246. Sodium 141. Potassium 4.4. Bicarb 31. BUN 16. Creatinine 0.33. She remains on vancomycin and cefepime. He nourished via tube feedings. PEG tube was placed in January 2023. The patient is seen today 05/15/2023 in follow-up on the regular medical floor. She is currently sitting up in a chair. Awake and alert in no acute distress. Maintaining O2 saturations in the 90s on room air. Blood culture positive for MRSA. Sputum culture positive for MRSA and pseudomonas aeruginosa. Currently on vancomycin and cefepime. White count 7.3. Hemoglobin 13.6. Platelets 269. Sodium 143. Potassium 4.5. Bicarb 32. BUN 18. Creatinine 0.4. Glucose 103. Vancomycin trough 10.2. Anticoagulated with Eliquis. Being nourished with TwoCal HN bolus feedings via PEG tube. The patient is seen today 05/16/2023 in follow-up on the regular medical floor. She is sitting in bed. Awake and alert in no acute distress. Denies any worsening shortness of breath, cough or congestion. She is maintaining O2 saturations in the 90s on room air. White count 9.3. Hemoglobin 11.7. Sodium 138. Potassium 5.8. Bicarb 28. BUN 18. Creatinine 0.4. Glucose 111. C- reactive protein 1.10. She is continued on vancomycin and cefepime. Normal saline at 100 ML's per hour. Anticoagulated with Eliquis. Sputum cultures positive for MRSA and pseudomonas aeruginosa, blood cultures positive for MRSA. Follow-up blood cultures are pending. Once cleared a PICC line will be placed for long-term IV antibiotics. She is being nourished with TwoCal HN bolus feedings via her PEG tube. Objective - Vital Signs Vital signs: Vital Signs Temp 97.5 F L 05/16/23 07:00 Pulse 67 05/16/23 07:00 Resp 16 05/16/23 07:00 BP 86/56 05/16/23 07:00 Pulse Ox 96 05/16/23 07:00 FiO2 Intake & Output 05/15/23 05/16/23 05/16/23 18:59 06:59 18:59 Intake Total 0 Output Total 1 Balance -1 Weight 45.6 kg Intake: Oral 0 Output: Urine 1 Other: Voiding Method Toilet - Exam GENERAL EXAM: Alert, pleasant 62-year-old female, sitting up in bed, on room air, in no apparent distress. HEAD: Normocephalic. EYES: Normal reaction of pupils, equal size. NOSE: Clear with pink turbinates. THROAT: No erythema or exudates. NECK: Radiation changes noted to the neck with muscle flap. No masses, no JVD. CHEST: No chest wall deformity. LUNGS: Equal air entry with no crackles, wheeze, rhonchi or dullness. CVS: S1 and S2 normal with no audible murmur, regular rhythm. ABDOMEN: PEG tube in place. Exit site clean and dry. Normal bowel sounds, no guarding or rigidity. SPINE: No scoliosis or deformity SKIN: No rashes CENTRAL NERVOUS SYSTEM: No focal deficits, tone is normal in all 4 extremities. EXTREMITIES: There is no peripheral edema. No clubbing, no cyanosis. Peripheral pulses are intact. - Labs CBC & Chem 7: 05/16/23 05:26 05/16/23 05:26 Labs: Abnormal Lab Results - Last 24 Hours (Table) 05/15/23 05/15/23 05/16/23 Range/Units 06:49 06:49 05:26 RBC 3.79 L (4.10-5.20) X 10*6/uL Hgb 11.7 L (12.0-15.0) d/dL MCV 98.9 H 98.2 H (80.0-97.0) FL MCHC 31.1 L 31.5 L (32.0-37.0) d/dL RDW 14.8 H 15.0 H (11.5-14.5) % Potassium (3.5-5.5) mmol/L Creatinine 0.4 L (0.6-1.5) mg/dL BUN/Creatinine Ratio 45.75 H (12.00-20.00) Ratio C-Reactive Protein (0.00-0.80) mg/dL 05/16/23 Range/Units 05:26 RBC (4.10-5.20) X 10*6/uL Hgb (12.0-15.0) d/dL MCV (80.0-97.0) FL MCHC (32.0-37.0) d/dL RDW (11.5-14.5) % Potassium 5.8 H (3.5-5.5) mmol/L Creatinine 0.4 L (0.6-1.5) mg/dL BUN/Creatinine Ratio 45.50 H (12.00-20.00) Ratio C-Reactive Protein 1.10 H (0.00-0.80) mg/dL Microbiology - Last 24 Hours (Table) 05/11/23 14:09 Legionella Culture - Preliminary Sputum 05/11/23 14:15 Blood Culture Gram Stain - Final Blood Blood Culture - Final Methicillin resist S. aureus Assessment and Plan Assessment: The patient has had recurrent respiratory tract infection. The patient was diagnosed having MRSA pneumonia on multiple occasions including this admission with MRSA and Pseudomonas aeruginosa in her sputum and MRSA in her blood cultures. She has a right lower lobe consolidation. Currently on vancomycin and cefepime. Follow-up blood cultures are pending. Will need a PICC line once clear. 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 Is also partially affecting her speech Laryngeal papillomatosis -underlying periodic endoscopies with resections at [facility]. Previous history of pulmonary embolism and the patient is currently on anticoagulation with Eliquis Hypothyroidism History of seizure disorder Plan: The patient was seen and evaluated Labs and medications reviewed Continued on vancomycin and cefepime Follow-up blood cultures pending Will need a PICC line once clear Anticoagulated with elevated Increase her activity as tolerated We will continue to follow I have personally seen and examined the patient, performed the documentation and the assessment and plan as written. Number of minutes spent on the visit: 32.
--- NOTE | 2023-05-16 11:53 | P.PN ---
Subjective Progress Note Date: 05/16/23 Principal diagnosis: Pneumonia and bacteremia Patient is a 62 year old female with a past medical history significant for squamous cell carcinoma at the base of the tongue and neck and this patient was status post chemoradiation and did have a PEG tube for feeding patient also history of COPD PE and seizure disorder, recently has been dealing with increasing cough and sputum production, feeling outpatient oral Augmentin therapy with evidence of right lower lobe pneumonia, with a sputum culture done 05/09/2023 grew pseudomonas aeruginosa. On today's evaluation that is 05/16/2023, the patient denies any fever or any chills, the patient is breathing comfortably on room air and no need for supplemental oxygen, the patient left-sided chest pain has resolved and cough has decreased in intensity, patient denies nausea/vomiting and no diarrhea has been reported White count is 9.37, creatinine 0.4 , Sputum is growing staph aureus and pseudomonas aeruginosa, the patient blood culture with MRSA, repeat blood culture negative Objective - Vital Signs Vital signs: Vital Signs Temp 97.5 F L 05/16/23 07:00 Pulse 67 05/16/23 07:00 Resp 16 05/16/23 07:00 BP 86/56 05/16/23 07:00 Pulse Ox 96 05/16/23 07:00 FiO2 Intake & Output 05/15/23 05/16/23 05/16/23 18:59 06:59 18:59 Intake Total 0 Output Total 1 Balance -1 Weight 45.6 kg Intake: Oral 0 Output: Urine 1 Other: Voiding Method Toilet - Exam GENERAL DESCRIPTION: Middle-age female up in bed in no distress RESPIRATORY SYSTEM: Unlabored breathing , decreased breath sounds at bases HEART: S1 S2 regular rate and rhythm , ABDOMEN: Soft , no tenderness EXTREMITIES: No edema feet - Labs CBC & Chem 7: 05/16/23 05:26 05/16/23 05:26 Labs: Abnormal Lab Results - Last 24 Hours (Table) 05/15/23 05/15/23 05/16/23 Range/Units 06:49 06:49 05:26 RBC 3.79 L (4.10-5.20) X 10*6/uL Hgb 11.7 L (12.0-15.0) d/dL MCV 98.9 H 98.2 H (80.0-97.0) FL MCHC 31.1 L 31.5 L (32.0-37.0) d/dL RDW 14.8 H 15.0 H (11.5-14.5) % Potassium (3.5-5.5) mmol/L Creatinine 0.4 L (0.6-1.5) mg/dL BUN/Creatinine Ratio 45.75 H (12.00-20.00) Ratio C-Reactive Protein (0.00-0.80) mg/dL 05/16/23 Range/Units 05:26 RBC (4.10-5.20) X 10*6/uL Hgb (12.0-15.0) d/dL MCV (80.0-97.0) FL MCHC (32.0-37.0) d/dL RDW (11.5-14.5) % Potassium 5.8 H (3.5-5.5) mmol/L Creatinine 0.4 L (0.6-1.5) mg/dL BUN/Creatinine Ratio 45.50 H (12.00-20.00) Ratio C-Reactive Protein 1.10 H (0.00-0.80) mg/dL Microbiology - Last 24 Hours (Table) 05/11/23 14:09 Legionella Culture - Preliminary Sputum 05/11/23 14:15 Blood Culture Gram Stain - Final Blood Blood Culture - Final Methicillin resist S. aureus Assessment and Plan (1) Failure of outpatient treatment Current Visit: Yes Status: Acute Code(s): Z78.9 - OTHER SPECIFIED HEALTH STATUS SNOMED Code(s): 788047937 (2) Pneumonia Current Visit: Yes Status: Acute Code(s): J18.9 - PNEUMONIA, UNSPECIFIED ORGANISM SNOMED Code(s): 989141996 (3) MRSA bacteremia Current Visit: Yes Status: Acute Code(s): R78.81 - BACTEREMIA; B95.62 - METHICILLIN RESIS STAPH INFCT CAUSING DISEASES CLASSD ELSR SNOMED Code(s): 10270003499029867 Plan: 1patient presented to the hospital with a increasing shortness of breath also have a cough moderate intensity bringing up some greenish sputum failing o utpatient oral Augmentin therapy with a sputum culture done on 05/09/2023 did grew pseudomonas aeruginosa and Streptococcus agalactiae 2- sputum is growing MRSA and pseudomonas aeruginosa blood culture with MRSA 3-blood cultures has been repeated and so far pending 4plan is to continue with vancomycin and cefepime , plan is for PICC line once blood culture has been negative for two-week course of antibiotic therapy Dictation was produced using [employer] dictation software. please excuse any gram matical, word or spelling errors. Time with Patient: Less than 30
[2023-05-16] MEDS ORDERED: SODIUM ZIRCONIUM CYCLOSILICATE 10 GM PACKET PO ONE (12:07)
--- NOTE | 2023-05-16 13:21 | P.PN ---
Subjective Progress Note Date: 05/16/23 62-year-old lady with past medical history significant for squamous cell carcinoma of tongue, history of pulmonary embolism, COPD, previous history of MRSA presented to the emergency department with complaints of shortness of breath. * Patient was sent in on instructions of her primary care physician secondary to an outpatient chest x-ray done which showed worsening infiltrate in lung. Patient has been on outpatient antibiotic including Augmentin, and doxycycline and completed approximately 2 week course of antibiotic. Patient had been complaining pleuritic chest pain cough, green sputum production and shortness of breath * She denied associated fever, chills, palpitations, nausea vomiting diarrhea or abdominal pain * Chest x-ray obtained on admission showed right lower lobe infiltrate with small effusion * Workup initiated in ER including hematology which included normal WBC count hemoglobin 13.2 platelet count within normal limits differential within normal limits. Serum chemistry showed sodium of 136 chloride 94 be on 18 creatinine 0.3 CRP of 18 N-terminal proBNP of 203 * Patient admitted to medical floor with consultation from pulmonary medicine and infectious disease * 05/13/23: Patient seen and evaluated bedside, patient continued to complain of cough, pleuritic chest pain on right side. Blood pressure systolic running between 90-100 however patient asymptomatic. Blood cultures reviewed gram- positive cocci noted staph aureus * 05/14/23 : Patient seen and evaluated bedside, patient had multiple questions today. Son at bedside as well. Blood culture findings discussed with christina elder. Blood culture grew MRSA, sputum culture grew MRSA and pseudomonas. Continue cefepime and vancomycin. Appreciate input from infectious disease. CT chest reviewed results discussed with patient. No pulmonary embolism noted no thoracic mass noted. Pleuritic chest pain has improved. Pulmonary medicine following as well . CBC shows normal white cell count. Serum chemistry pending * 05/15/23: Patient seen and evaluated bedside, patient was noted to be hypotenisve however asymptomatic. Lactate level is within normal limits continue with fluid resuscitation. Patient inquiring about pain medications. K plan discussed potential discharge were 05/18, alt 05/19. Need clearance of blood cultures 05/16. Patient seen and examined. Complaining of productive cough. Denies any shortness of breath REVIEW OF SYSTEMS: CONSTITUTIONAL: No fever, no malaise,. CARDIOVASCULAR: No chest pain, no palpitations, no syncope. PULMONARY: As mentioned in HPI GASTROINTESTINAL: No diarrhea, no nausea, no vomiting, no abdominal pain. NEUROLOGICAL: No headaches, no weakness, PHYSICAL EXAMINATION: GENERAL: The patient is alert and oriented x3, not in any acute distress. Well developed, well nourished. HEENT: Pupils are round and equally reacting to light. EOMI. No scleral icterus. No conjunctival pallor. Normocephalic, atraumatic. No pharyngeal erythema. No thyromegaly. CARDIOVASCULAR: S1 and S2 present. No murmurs, rubs, or gallops. PULMONARY: Chest is clear to auscultation, no wheezing or crackles. ABDOMEN: Soft, nontender, nondistended, normoactive bowel sounds. No palpable organomegaly. MUSCULOSKELETAL: No joint swelling or deformity. EXTREMITIES: No cyanosis, clubbing, or pedal edema. NEUROLOGICAL: Gross neurological examination did not reveal any focal deficits. SKIN: No rashes. Assessment and plan * RIGHT lower lobe pneumonia, with the current aspiration pneumonia MRSA pneumonia * Staph aureus bacteremia * History of squamous cell carcinoma of tongue * History of radiation pneumonitis * Dysphagia * Status post feeding tube in place * History of thromboembolism * Chronic pain syndrome Monitor vital signs monitor CBC monitor CMP Urine Legionella negative, sputum cultures grew MRSA, blood cultures show gram-positive cocci staph aureus, MRSA,Follow-up on blood cultures Continue cefepime and vancomycin infectious disease and pulmonary medicine following continue patient on Eliquis In regards to chronic pain continue current regimen including gabapentin, [place] CT chest negative for intrathoracic mass/malignancy/embolism Continue tube feeding Labs and medication were reviewed.. Continue same treatment. Continue with symptomatic treatment. Resume home medication. Monitor labs and vitals. DVT and GI prophylaxis. Further recommendations as per clinical course of the patient Dictation was produced using [employer] dictation software. please excuse any grammatical, word or spelling errors. Objective - Vital Signs Vital signs: Vital Signs Temp 97.5 F L 05/16/23 07:00 Pulse 67 05/16/23 07:00 Resp 16 05/16/23 07:00 BP 86/56 05/16/23 07:00 Pulse Ox 96 05/16/23 07:00 FiO2 Intake & Output 05/15/23 05/16/23 05/16/23 18:59 06:59 18:59 Intake Total 0 Output Total 1 Balance -1 Weight 45.6 kg Intake: Oral 0 Output: Urine 1 Other: Voiding Method Toilet - Labs CBC & Chem 7: 05/16/23 05:26 05/16/23 05:26 Labs: Abnormal Lab Results - Last 24 Hours (Table) 05/16/23 05/16/23 Range/Units 05:26 05:26 RBC 3.79 L (4.10-5.20) X 10*6/uL Hgb 11.7 L (12.0-15.0) d/dL MCV 98.2 H (80.0-97.0) FL MCHC 31.5 L (32.0-37.0) d/dL RDW 15.0 H (11.5-14.5) % Potassium 5.8 H (3.5-5.5) mmol/L Creatinine 0.4 L (0.6-1.5) mg/dL BUN/Creatinine Ratio 45.50 H (12.00-20.00) Ratio C-Reactive Protein 1.10 H (0.00-0.80) mg/dL Microbiology - Last 24 Hours (Table) 05/11/23 14:09 Legionella Culture - Preliminary Sputum 05/11/23 14:15 Blood Culture Gram Stain - Final Blood Blood Culture - Final Methicillin resist S. aureus
[2023-05-17] MEDS: CEFEPIME 2 GM in SODIUM CHLORIDE 0.9% 100 ML IVPB SCH ×3 (01:26→17:55)
[2023-05-17] MEDS: HYDROmorphone 1 MG/ML 1 ML SYRINGE IVP PRN ×5 (02:51→20:03)
[2023-05-17] MEDS: SODIUM CHLORIDE 0.9% 1,000 ML IV SCH ×3 (03:54→22:54)
[2023-05-17] MEDS: MIDODRINE 5 MG TAB PO SCH ×3 (06:45→17:56)
[2023-05-17] MEDS ORDERED: VANCOMYCIN TROUGH DUE 1 EACH MISC MISCELLANE ONE (07:00)
[2023-05-17] MEDS: VANCOMYCIN 750 MG in SODIUM CHLORIDE 0.9% 250 ML IVPB SCH ×2 (09:03→17:56)
[2023-05-17] MEDS: LIDOCAINE 5% PATCH TOPICAL SCH (09:03)
[2023-05-17] MEDS: HYDROcodone/APAP 10-325MG 1 EACH TAB PEG/G-TUBE PRN ×2 (09:04→13:05)
[2023-05-17] MEDS: ASPIRIN 81 MG PEG/G-TUBE SCH (09:04)
[2023-05-17] MEDS: LEVOTHYROXINE 75 MCG TAB PEG/G-TUBE SCH (09:05)
[2023-05-17] MEDS ORDERED: LIDOCAINE 1% INJ 10MG/ML (20 ML MDV) SQ ONE (09:43)
--- NOTE | 2023-05-17 10:07 | IR ---
PICC LINE PLACEMENT: HISTORY: Infection requiring long-term antibiotic therapy PROCEDURE: Ultrasound and fluoroscopic guidance of PICC line placement. COMPLICATIONS: None ANESTHESIA: 1. 1% Lidocaine locally. FINDINGS/TECHNIQUE: The procedure was explained to the patient. The risks, complications, benefits and alternatives were discussed and any questions were answered. Informed consent was obtained. The patient was placed supine on the fluoroscopic table and prepped and draped in the usual sterile fash ion. Utilizing a 21 gauge needle and sonographic and fluoroscopic guidance, access in the left basi lic vein was achieved and there is placement of a 0.018 guidewire. The vein is patent. A 4-F sheath was placed over the guidewire. The guidewire and dilator were removed and a 4-F. PICC line was plac ed through the sheath with the tip at the level of the SVC. The sheath was removed, the catheter was flushed and sutured into position. The patient was stable throughout the procedure and remained sta ble upon discharge from the Department of Radiology. The vein puncture was patent under ultrasound. A cooley scale image was obtained to document patency of the vein punctured. All elements of the maximal barrier technique were utilized. FLUOROSCOPY TIME: DAP 0.301Gy cm2 IMPRESSION: Successful PICC line placement under ultrasound and fluoroscopic guidance.
[2023-05-17] MEDS: GABAPENTIN 300 MG/6 ML PEG/G-TUBE SCH ×3 (11:08→22:38)
[2023-05-17 11:13] LABS: HCT 38.2 % (37.2-46.3); HGB 11.8 d/dL (12.0-15.0); MCH 30.2 pg (27.0-32.0); MCHC 30.9 d/dL (32.0-37.0); MCV 97.7 FL (80.0-97.0); Mean Platelet Volume 11.8 FL (9.5-12.2); NRBC Per 100 WBC 0 X 10*3/uL (0.00-0.01); Platelet Count 270 X 10*3/uL (140-440); RBC 3.91 X 10*6/uL (4.10-5.20); WBC 8.59 X 10*3/uL (4.50-10.00)
--- NOTE | 2023-05-17 11:57 | P.PN ---
Subjective Progress Note Date: 05/17/23 I'm seeing this patient in consultation for episodes of pneumonia. The patient has less for right lower lobe pneumonia. The patient is known as taking care of this patient in the past for recurrent right-sided pneumonia and previous MRSA infection of the right lung. This patient is an ex-smoker. She has a very complicated history of a cancer involving the base of her tongue. 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 The patient underwent surgical resection. Following that, the patient had radical neck dissection, muscle flap, and radiation therapy to her neck that causes significant amount of scarring, dry mouth/xerostomia, and limitation her jaw movement and further complications that required a jaw replacement. Bone graft was obtained from her right lower extremity. For now, she has a limited mouth opening, no teeth, extensive multiple scarring in her soft palate, difficulties with swallowing and difficulties in meeting her caloric requirements. The patient and mainly relying on ensure and boost shakes. the patient has been able to maintain her body weight. Despite being very careful, on and off, she has had episodes of aspiration and reviewing her previous chest x-rays from early 2021 and 2020 has revealed infiltration of the right lung base, a typical location for an aspiration pneumonia/aspiration pneumonitis. The patient does not take any solids. No choking episodes. On a separate note, the patient was also diagnosed having subclavian vein thrombosis, probably another complication of her radiation therapy to her neck, and the patient is currently on long-term anticoagulation with Eliquis. No previous history of cardiac disease. No previous history of DVTs.. No history of any interstitial lung disease and the scarring that are seen in the lung apices related to previous radiation therapy. No childhood asthma. She is not using any pulmonary vascular medications or inhalers for now. Noted the patient is also Covid 19 infection July [id number]. She carries history of recurrent pneumonias. She had a pneumonia in January 2023 and she was hospitalized for a total of 11 days and she was discharged on February 2023. She was treated with Augmentin following that and the repeat chest x-ray was showing a right lower lobe consolidation. Further sputum analysis showed MRSA and the patient was treated with doxycycline. She improved consid erably and subsequent chest x-ray shows clearing of the right lung infiltrates. Subsequently, the patient became symptomatic again and she was treated through her primary care physician. Sputum was collected on 04/17/2023 that showed strep and other sputum on 05/09/2023 showed Pseudomonas along with strep group B. On today's evaluation of 05/13/2023, the patient remains on room air oxygen, currently covered with a combination of vancomycin and cefepime. She has a congested cough. Unable to bring up much sputum. D-dimer was at 0.4. The patient has a white cell count of 6 with a hemoglobin 12.6. BUN is at 21 with a creatinine of 0.38 and a sodium level is at 137. She is ambulating. No nausea or vomiting. No diarrhea. She continues to receive enteral feeding for nutritional support. No altered mentation. The patient is seen today 05/14/2023 in follow-up on the regular medical floor. She is currently resting comfortably in bed. Maintain O2 saturations in the 90s on room air. She's been afebrile. Hemodynamically stable. Blood cultures are positive for presumptive MRSA. Sputum culture is positive for MRSA and pseudomonas aeruginosa. White count 5.8. Hemoglobin 13.4. Platelets 246. Sodium 141. Potassium 4.4. Bicarb 31. BUN 16. Creatinine 0.33. She remains on vancomycin and cefepime. He nourished via tube feedings. PEG tube was placed in January 2023. The patient is seen today 05/15/2023 in follow-up on the regular medical floor. She is currently sitting up in a chair. Awake and alert in no acute distress. Maintaining O2 saturations in the 90s on room air. Blood culture positive for MRSA. Sputum culture positive for MRSA and pseudomonas aeruginosa. Currently on vancomycin and cefepime. White count 7.3. Hemoglobin 13.6. Platelets 269. Sodium 143. Potassium 4.5. Bicarb 32. BUN 18. Creatinine 0.4. Glucose 103. Vancomycin trough 10.2. Anticoagulated with Eliquis. Being nourished with TwoCal HN bolus feedings via PEG tube. The patient is seen today 05/16/2023 in follow-up on the regular medical floor. She is sitting in bed. Awake and alert in no acute distress. Denies any worsening shortness of breath, cough or congestion. She is maintaining O2 saturations in the 90s on room air. White count 9.3. Hemoglobin 11.7. Sodium 138. Potassium 5.8. Bicarb 28. BUN 18. Creatinine 0.4. Glucose 111. C- reactive protein 1.10. She is continued on vancomycin and cefepime. Normal saline at 100 ML's per hour. Anticoagulated with Eliquis. Sputum cultures positive for MRSA and pseudomonas aeruginosa, blood cultures positive for MRSA. Follow-up blood cultures are pending. Once cleared a PICC line will be placed for long-term IV antibiotics. She is being nourished with TwoCal HN bolus feedings via her PEG tube. The patient is seen today 05/17/2023 in follow-up on the regular medical floor. She remains awake and alert in no acute distress. Sitting up in bed. Denies any worsening shortness of breath, cough or congestion. Maintaining good O2 saturations in the 90s on room air. Sputum culture was positive for MRSA and pseudomonas aeruginosa, initial blood culture positive for MRSA. Repeat blood cultures from 05/15/2023 are revealing no growth thus far. White count 8.5. Hemoglobin 11.8. Platelets 270. Vancomycin trough 16.4. She remains afebrile. She remains on vancomycin and cefepime. Anticoagulated with Eliquis. Objective - Vital Signs Vital signs: Vital Signs Temp 97.6 F 05/17/23 07:00 Pulse 68 05/17/23 07:00 Resp 20 05/17/23 07:00 BP 88/61 05/17/23 07:00 Pulse Ox 94 L 05/17/23 07:00 FiO2 Intake & Output 05/16/23 05/17/23 05/17/23 18:59 06:59 18:59 Weight 46.1 kg Other: Voiding Method Toilet - Exam GENERAL EXAM: Alert, pleasant 62-year-old female, in no apparent distress. HEAD: Normocephalic. EYES: Normal reaction of pupils, equal size. NOSE: Clear with pink turbinates. THROAT: No erythema or exudates. NECK: Radiation changes noted to the neck with muscle flap. No masses, no JVD. CHEST: No chest wall deformity. LUNGS: Equal air entry with no crackles, wheeze, rhonchi or dullness. On room air. CVS: S1 and S2 normal with no audible murmur, regular rhythm. ABDOMEN: PEG tube in place. Exit site clean and dry. Normal bowel sounds, no guarding or rigidity. SPINE: No scoliosis or deformity SKIN: No rashes CENTRAL NERVOUS SYSTEM: No focal deficits, tone is normal in all 4 extremities. EXTREMITIES: There is no peripheral edema. No clubbing, no cyanosis. Peripheral pulses are intact. - Labs CBC & Chem 7: 05/17/23 06:32 05/16/23 05:26 Labs: Abnormal Lab Results - Last 24 Hours (Table) 05/17/23 Range/Units 06:32 RBC 3.91 L (4.10-5.20) X 10*6/uL Hgb 11.8 L (12.0-15.0) d/dL MCV 97.7 H (80.0-97.0) FL MCHC 30.9 L (32.0-37.0) d/dL RDW 15.0 H (11.5-14.5) % Microbiology - Last 24 Hours (Table) 05/11/23 14:30 Blood Culture - Final Blood 05/15/23 08:25 Blood Culture - Preliminary Blood 05/15/23 08:34 Blood Culture - Preliminary Blood Assessment and Plan Assessment: The patient has had recurrent respiratory tract infection. The patient was diagnosed having MRSA pneumonia on multiple occasions including this admission with MRSA and Pseudomonas aeruginosa in her sputum and MRSA in her blood cultures. She has a right lower lobe consolidation. Currently on vancomycin and cefepime. Follow-up blood cultures are revealing no growth thus far. We'll plan for PICC line tomorrow. Eliquis on hold. 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 Is also partially affecting her speech Laryngeal papillomatosis -underlying periodic endoscopies with resections at [facility]. Previous history of pulmonary embolism and the patient is currently on anti coagulation with Eliquis Hypothyroidism History of seizure disorder Plan: The patient was seen and evaluated Labs and medications reviewed Continued on vancomycin and cefepime Follow-up blood cultures pending Will need a PICC line once clear Increase her activity as tolerated Home antibiotics per ID service We will continue to follow I have personally seen and examined the patient, performed the documentation and the assessment and plan as written. Number of minutes spent on the visit: 32.
[2023-05-17 12:17] LABS: ALT 31 U/L (8-44); AST 29 U/L (13-35); Albumin 3.3 d/dL (3.8-4.9); Albumin/Globulin Ratio 1.38 Ratio (1.60-3.17); Alkaline Phosphatase 70 U/L (41-126); BUN/Creat Ratio 58.67 Ratio (12.00-20.00); Blood Urea Nitrogen 17.6 mg/dL (9.0-27.0); Carbon Dioxide 26.3 mmol/L (21.6-31.8); Chloride 104 mmol/L (96-109); Globulin 2.4 d/dL (1.6-3.3); Glucose 99 mg/dL (70-110); Potassium 4.6 mmol/L (3.5-5.5); Sodium 140 mmol/L (135-145); Total Bilirubin <0.2 mg/dL (0.3-1.2); Total Protein 5.7 d/dL (6.2-8.2)
[2023-05-17] MEDS: LACTOBACILLUS ACIDOPHILUS/PECT 1 EACH CAPSULE PO SCH (13:05)
--- NOTE | 2023-05-17 13:45 | P.PN ---
Subjective Progress Note Date: 05/17/23 * 62-year-old lady with past medical history significant for squamous cell carcinoma of tongue, history of pulmonary embolism, COPD, previous history of MRSA presented to the emergency department with complaints of shortness of breath. * Patient was sent in on instructions of her primary care physician secondary to an outpatient chest x-ray done which showed worsening infiltrate in lung. Patient has been on outpatient antibiotic including Augmentin, and doxycycline and completed approximately 2 week course of antibiotic. Patient had been complaining pleuritic chest pain cough, green sputum production and shortness of breath * She denied associated fever, chills, palpitations, nausea vomiting diarrhea or abdominal pain * Chest x-ray obtained on admission showed right lower lobe infiltrate with smal l effusion * Workup initiated in ER including hematology which included normal WBC count hemoglobin 13.2 platelet count within normal limits differential within normal limits. Serum chemistry showed sodium of 136 chloride 94 be on 18 creatinine 0.3 CRP of 18 N-terminal proBNP of 203 * Patient admitted to medical floor with consultation from pulmonary medicine and infectious disease * 05/13/23: Patient seen and evaluated bedside, patient continued to complain of cough, pleuritic chest pain on right side. Blood pressure systolic running between 90-100 however patient asymptomatic. Blood cultures reviewed gram- positive cocci noted staph aureus * 05/14/23 : Patient seen and evaluated bedside, patient had multiple questions today. Son at bedside as well. Blood culture findings discussed with marci velasco. Blood culture grew MRSA, sputum culture grew MRSA and pseudomonas. Continue cefepime and vancomycin. Appreciate input from infectious disease. CT chest reviewed results discussed with patient. No pulmonary embolism noted no thoracic mass noted. Pleuritic chest pain has improved. Pulmonary medicine following as well . CBC shows normal white cell count. Serum chemistry pending * 05/15/23: Patient seen and evaluated bedside, patient was noted to be hypotenisve however asymptomatic. Lactate level is within normal limits continue with fluid resuscitation. Patient inquiring about pain medications. K plan discussed potential discharge were 05/18, alt 05/19. Need clearance of blood cultures * 05/16. Patient seen and examined. Complaining of productive cough. Denies any shortness of breath * 05/17: Patient seen and evaluated bedside. [id number] at bedside all questions answered. Frey complains of diarrhea we will check for stool C. diff. Hyperkalemia was transient likely lab error. Repeat potassium levels within normal limits. The new patient on IV antibiotic. CARE plan discharge planning discussed potential discharge in 48 hours will need education regarding antibiotic use administration at home Objective - Vital Signs Vital signs: Vital Signs Temp 97.6 F 05/17/23 07:00 Pulse 68 05/17/23 07:00 Resp 20 05/17/23 07:00 BP 88/61 05/17/23 07:00 Pulse Ox 94 L 05/17/23 07:00 FiO2 Intake & Output 05/16/23 05/17/23 05/17/23 18:59 06:59 18:59 Weight 46.1 kg Other: Voiding Method Toilet - Exam PHYSICAL EXAMINATION: GENERAL: The patient is alert and oriented x3, ill appearance, underweight HEENT: Pupils are round and equally reacting to light. EOMI. CARDIOVASCULAR: S1 and S2 present. No murmurs, rubs, or gallops. PULMONARY: Chest is clear to auscultation, no wheezing or crackles. ABDOMEN: Soft, nontender, nondistended, normoactive bowel sounds. No palpable organomegaly. MUSCULOSKELETAL: No joint swelling or deformity. EXTREMITIES: No cyanosis, clubbing, or pedal edema. NEUROLOGICAL: Gross neurological examination did not reveal any focal deficits. SKIN: No rashes. - Labs CBC & Chem 7: 05/17/23 06:32 05/17/23 06:32 Labs: Abnormal Lab Results - Last 24 Hours (Table) 05/17/23 05/17/23 Range/Units 06:32 06:32 RBC 3.91 L (4.10-5.20) X 10*6/uL Hgb 11.8 L (12.0-15.0) d/dL MCV 97.7 H (80.0-97.0) FL MCHC 30.9 L (32.0-37.0) d/dL RDW 15.0 H (11.5-14.5) % Creatinine 0.3 L (0.6-1.5) mg/dL BUN/Creatinine Ratio 58.67 H (12.00-20.00) Ratio Total Bilirubin <0.2 L (0.3-1.2) mg/dL Total Protein 5.7 L (6.2-8.2) d/dL Albumin 3.3 L (3.8-4.9) d/dL Albumin/Globulin Ratio 1.38 L (1.60-3.17) Ratio Microbiology - Last 24 Hours (Table) 05/15/23 08:25 Blood Culture - Preliminary Blood 05/15/23 08:34 Blood Culture - Preliminary Blood 05/11/23 14:30 Blood Culture - Final Blood Assessment and Plan Assessment: Assessment and plan * RIGHT lower lobe pneumonia, with the current aspiration pneumonia MRSA pneumonia * Staph aureus bacteremia * History of squamous cell carcinoma of tongue * History of radiation pneumonitis * Diarrhea rule out infectious etiology * Dysphagia * Status post feeding tube in place * History of thromboembolism * Chronic pain syndrome * In regards to pneumonia Continue patient on broad-spectrum antibiotic on cefepime and vancomycin, infectious disease and pulmonary medicine following * Urine Legionella negative, sputum cultures grew MRSA, blood cultures show gram-positive cocci staph aureus, MRSA, repeat blood cultures ordered pending * Consultations obtained from dietitian to initiate tube feeding * In regards to history of pulmonary embolism, continue patient on Eliquis * In regards to chronic pain continue current regimen including gabapentin, [place] * In regards to diarrhea stool C. diff ordered started on probiotics * CT chest negative for intrathoracic mass/malignancy/embolism * CODE STATUS is full code
[2023-05-17 14:04] VITALS: BMI 18.6
--- NOTE | 2023-05-17 16:50 | P.PN ---
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 On today's evaluation that is 05/17/2023, the patient remains to be afebrile the patient is breathing comfortably on room air, the patient denies chest pain , cough is decreased intensity and less sputum production, patient denies nausea/vomiting however is complaining of diarrhea, no new symptoms patient did get a PICC line White count is 8.59, creatinine 0.3 , Sputum is growing staph aureus and pseudomonas aeruginosa, the patient blood culture with MRSA, repeat blood culture negative Objective - Vital Signs Vital signs: Vital Signs Temp 97.6 F 05/17/23 07:00 Pulse 68 05/17/23 07:00 Resp 20 05/17/23 07:00 BP 88/61 05/17/23 07:00 Pulse Ox 94 L 05/17/23 07:00 FiO2 Intake & Output 05/16/23 05/17/23 05/17/23 18:59 06:59 18:59 Weight 46.1 kg 46.1 kg Other: Voiding Method Toilet - Exam GENERAL DESCRIPTION: Middle-age female up in bed in no distress RESPIRATORY SYSTEM: Unlabored breathing , decreased breath sounds at bases HEART: S1 S2 regular rate and rhythm , ABDOMEN: Soft , no tenderness EXTREMITIES: No edema feet - Labs CBC & Chem 7: 05/17/23 06:32 05/17/23 06:32 Labs: Abnormal Lab Results - Last 24 Hours (Table) 05/17/23 05/17/23 Range/Units 06:32 06:32 RBC 3.91 L (4.10-5.20) X 10*6/uL Hgb 11.8 L (12.0-15.0) d/dL MCV 97.7 H (80.0-97.0) FL MCHC 30.9 L (32.0-37.0) d/dL RDW 15.0 H (11.5-14.5) % Creatinine 0.3 L (0.6-1.5) mg/dL BUN/Creatinine Ratio 58.67 H (12.00-20.00) Ratio Total Bilirubin <0.2 L (0.3-1.2) mg/dL Total Protein 5.7 L (6.2-8.2) d/dL Albumin 3.3 L (3.8-4.9) d/dL Albumin/Globulin Ratio 1.38 L (1.60-3.17) Ratio Microbiology - Last 24 Hours (Table) 05/15/23 08:25 Blood Culture - Preliminary Blood 05/15/23 08:34 Blood Culture - Preliminary Blood 05/11/23 14:30 Blood Culture - Final Blood Assessment and Plan (1) Failure of outpatient treatment Current Visit: Yes Status: Acute Code(s): Z78.9 - OTHER SPECIFIED HEALTH STATUS SNOMED Code(s): 672397067 (2) Pneumonia Current Visit: Yes Status: Acute Code(s): J18.9 - PNEUMONIA, UNSPECIFIED ORGANISM SNOMED Code(s): 163478054 (3) MRSA bacteremia Current Visit: Yes Status: Acute Code(s): R78.81 - BACTEREMIA; B95.62 - METHICILLIN RESIS STAPH INFCT CAUSING DISEASES CLASSD ELSWHR SNOMED Code(s): 60703691556653316 Plan: 1patient presented to the hospital with a increasing shortness of breath also have a cough moderate intensity bringing up some greenish sputum failing ou tpatient oral Augmentin therapy with a sputum culture done on 05/09/2023 did grew pseudomonas aeruginosa and Streptococcus agalactiae 2- sputum is growing MRSA and pseudomonas aeruginosa blood culture with MRSA 3-blood cultures has been repeated and so far pending 4plan is to continue with vancomycin and cefepime to finish two-week course of antibiotic therapy and close outpatient follow-up Dictation was produced using [employer] dictation software. please excuse any grammatical, word or spelling errors. Time with Patient: Less than 30
[2023-05-17] MEDS: HYDROcodone/APAP 15 ML SOLUTION PEG/G-TUBE PRN ×2 (17:55→22:38)
[2023-05-17] MEDS: APIXABAN 5 MG TAB PO SCH (20:04)
[2023-05-18] MEDS: HYDROmorphone 1 MG/ML 1 ML SYRINGE IVP PRN ×5 (00:07→22:40)
[2023-05-18] MEDS: VANCOMYCIN 750 MG in SODIUM CHLORIDE 0.9% 250 ML IVPB SCH ×3 (00:07→16:33)
[2023-05-18] MEDS: CEFEPIME 2 GM in SODIUM CHLORIDE 0.9% 100 ML IVPB SCH ×3 (00:07→16:33)
[2023-05-18] MEDS: HYDROcodone/APAP 15 ML SOLUTION PEG/G-TUBE PRN ×3 (06:46→16:34)
[2023-05-18] MEDS: MIDODRINE 5 MG TAB PO SCH ×3 (06:46→16:37)
[2023-05-18] MEDS ORDERED: SODIUM CHLORIDE 0.9% 500 ML 500 ML IV ONE (08:12)
[2023-05-18 08:53] LABS: HCT 36.2 % (37.2-46.3); HGB 11.3 d/dL (12.0-15.0); MCH 30.5 pg (27.0-32.0); MCHC 31.2 d/dL (32.0-37.0); MCV 97.8 FL (80.0-97.0); NRBC Per 100 WBC 0 X 10*3/uL (0.00-0.01); Platelet Count 260 X 10*3/uL (140-440); RDW 15.2 % (11.5-14.5); WBC 8.65 X 10*3/uL (4.50-10.00)
[2023-05-18] MEDS: LIDOCAINE 5% PATCH TOPICAL SCH (09:36)
[2023-05-18 09:37] LABS: BUN/Creat Ratio 43.75 Ratio (12.00-20.00); Blood Urea Nitrogen 17.5 mg/dL (9.0-27.0); Calcium 8.9 mg/dL (8.7-10.3); Carbon Dioxide 29.4 mmol/L (21.6-31.8); Chloride 103 mmol/L (96-109); Glucose 92 mg/dL (70-110); Potassium 4.7 mmol/L (3.5-5.5); Sodium 140 mmol/L (135-145)
[2023-05-18] MEDS: SODIUM CHLORIDE 0.9% 1,000 ML IV SCH ×2 (09:41→19:47)
[2023-05-18] MEDS: APIXABAN 5 MG TAB PO SCH ×2 (09:43→22:40)
[2023-05-18] MEDS: LACTOBACILLUS ACIDOPHILUS/PECT 1 EACH CAPSULE PO SCH (09:43)
[2023-05-18] MEDS: LEVOTHYROXINE 75 MCG TAB PEG/G-TUBE SCH (09:43)
[2023-05-18] MEDS: ASPIRIN 81 MG PEG/G-TUBE SCH (09:43)
[2023-05-18] MEDS ORDERED: HYDROmorphone 0.5 MG/0.5 ML SYRINGE IVP PRN (09:47)
[2023-05-18] MEDS: GABAPENTIN 300 MG/6 ML PEG/G-TUBE SCH ×3 (10:26→22:40)
--- NOTE | 2023-05-18 12:07 | P.PN ---
Subjective Progress Note Date: 05/18/23 I'm seeing this patient in consultation for episodes of pneumonia. The patient has less for right lower lobe pneumonia. The patient is known as taking care of this patient in the past for recurrent right-sided pneumonia and previous MRSA infection of the right lung. This patient is an ex-smoker. She has a very complicated history of a cancer involving the base of her tongue. 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 The patient underwent surgical resection. Following that, the patient had radical neck dissection, muscle flap, and radiation therapy to her neck that causes significant amount of scarring, dry mouth/xerostomia, and limitation her jaw movement and further complications that required a jaw replacement. Bone graft was obtained from her right lower extremity. For now, she has a limited mouth opening, no teeth, extensive multiple scarring in her soft palate, difficulties with swallowing and difficulties in meeting her caloric requirements. The patient and mainly relying on ensure and boost shakes. the patient has been able to maintain her body weight. Despite being very careful, on and off, she has had episodes of aspiration and reviewing her previous chest x-rays from early 2021 and 2020 has revealed infiltration of the right lung base, a typical location for an aspiration pneumonia/aspiration pneumonitis. The patient does not take any solids. No choking episodes. On a separate note, the patient was also diagnosed having subclavian vein thrombosis, probably another complication of her radiation therapy to her neck, and the patient is currently on long-term anticoagulation with Eliquis. No previous history of cardiac disease. No previous history of DVTs.. No history of any interstitial lung disease and the scarring that are seen in the lung apices related to previous radiation therapy. No childhood asthma. She is not using any pulmonary vascular medications or inhalers for now. Noted the patient is also Covid 19 infection July [id number]. She carries history of recurrent pneumonias. She had a pneumonia in January 2023 and she was hospitalized for a total of 11 days and she was discharged on February 2023. She was treated with Augmentin following that and the repeat chest x-ray was showing a right lower lobe consolidation. Further sputum analysis showed MRSA and the patient was treated with doxycycline. She improved consid erably and subsequent chest x-ray shows clearing of the right lung infiltrates. Subsequently, the patient became symptomatic again and she was treated through her primary care physician. Sputum was collected on 04/17/2023 that showed strep and other sputum on 05/09/2023 showed Pseudomonas along with strep group B. On today's evaluation of 05/13/2023, the patient remains on room air oxygen, currently covered with a combination of vancomycin and cefepime. She has a congested cough. Unable to bring up much sputum. D-dimer was at 0.4. The patient has a white cell count of 6 with a hemoglobin 12.6. BUN is at 21 with a creatinine of 0.38 and a sodium level is at 137. She is ambulating. No nausea or vomiting. No diarrhea. She continues to receive enteral feeding for nutritional support. No altered mentation. The patient is seen today 05/14/2023 in follow-up on the regular medical floor. She is currently resting comfortably in bed. Maintain O2 saturations in the 90s on room air. She's been afebrile. Hemodynamically stable. Blood cultures are positive for presumptive MRSA. Sputum culture is positive for MRSA and pseudomonas aeruginosa. White count 5.8. Hemoglobin 13.4. Platelets 246. Sodium 141. Potassium 4.4. Bicarb 31. BUN 16. Creatinine 0.33. She remains on vancomycin and cefepime. He nourished via tube feedings. PEG tube was placed in January 2023. The patient is seen today 05/15/2023 in follow-up on the regular medical floor. She is currently sitting up in a chair. Awake and alert in no acute distress. Maintaining O2 saturations in the 90s on room air. Blood culture positive for MRSA. Sputum culture positive for MRSA and pseudomonas aeruginosa. Currently on vancomycin and cefepime. White count 7.3. Hemoglobin 13.6. Platelets 269. Sodium 143. Potassium 4.5. Bicarb 32. BUN 18. Creatinine 0.4. Glucose 103. Vancomycin trough 10.2. Anticoagulated with Eliquis. Being nourished with TwoCal HN bolus feedings via PEG tube. The patient is seen today 05/16/2023 in follow-up on the regular medical floor. She is sitting in bed. Awake and alert in no acute distress. Denies any worsening shortness of breath, cough or congestion. She is maintaining O2 saturations in the 90s on room air. White count 9.3. Hemoglobin 11.7. Sodium 138. Potassium 5.8. Bicarb 28. BUN 18. Creatinine 0.4. Glucose 111. C- reactive protein 1.10. She is continued on vancomycin and cefepime. Normal saline at 100 ML's per hour. Anticoagulated with Eliquis. Sputum cultures positive for MRSA and pseudomonas aeruginosa, blood cultures positive for MRSA. Follow-up blood cultures are pending. Once cleared a PICC line will be placed for long-term IV antibiotics. She is being nourished with TwoCal HN bolus feedings via her PEG tube. The patient is seen today 05/17/2023 in follow-up on the regular medical floor. She remains awake and alert in no acute distress. Sitting up in bed. Denies any worsening shortness of breath, cough or congestion. Maintaining good O2 saturations in the 90s on room air. Sputum culture was positive for MRSA and pseudomonas aeruginosa, initial blood culture positive for MRSA. Repeat blood cultures from 05/15/2023 are revealing no growth thus far. White count 8.5. Hemoglobin 11.8. Platelets 270. Vancomycin trough 16.4. She remains afebrile. She remains on vancomycin and cefepime. Anticoagulated with Eliquis. The patient is seen today 05/18/2023 in follow-up on the regular medical floor. She is up ambulating in her room. Awake and alert in no acute distress. Good O2 saturations in the 90s on room air. She did have a PICC line placed yesterday. Initial blood cultures were positive for MRSA. Sputum cultures positive for MRSA and pseudomonas aeruginosa. Follow-up blood cultures from 05/15/2023 are revealing no growth thus far. White count 8.6. Hemoglobin 11.3. Platelets 260. Sodium 140. Potassium 4.7. Bicarb 29. BUN 18. Creatinine 0.4. C-reactive protein 0.60. C. difficile screen was negative. He was having some low blood pressures in the 70s systolic early this morning. She received 500 mL bolus. She is on midodrine. She remains on vancomycin and cefepime. Anticoagulated with Eliquis. Objective - Vital Signs Vital signs: Vital Signs Temp 97.7 F 05/18/23 07:15 Pulse 74 05/18/23 09:40 Resp 16 05/18/23 07:15 BP 106/71 05/18/23 09:40 Pulse Ox 95 05/18/23 07:15 FiO2 Intake & Output 05/17/23 05/18/23 05/18/23 18:59 06:59 18:59 Output Total 200 Balance -200 Weight 46.1 kg 46.6 kg Output: Urine 200 Other: Voiding Method Toilet # Voids 2 - Exam GENERAL EXAM: Alert, pleasant 62-year-old female, ambulating in room, on room air, in no apparent distress. HEAD: Normocephalic. EYES: Normal reaction of pupils, equal size. NOSE: Clear with pink turbinates. THROAT: No erythema or exudates. NECK: Radiation changes noted to the neck with muscle flap. No masses, no JVD. CHEST: No chest wall deformity. LUNGS: Equal air entry with no crackles, wheeze, rhonchi or dullness. CVS: S1 and S2 normal with no audible murmur, regular rhythm. ABDOMEN: PEG tube in place. Exit site clean and dry. Normal bowel sounds, no guarding or rigidity. SPINE: No scoliosis or deformity SKIN: No rashes CENTRAL NERVOUS SYSTEM: No focal deficits, tone is normal in all 4 extremities. EXTREMITIES: PICC line in place. There is no peripheral edema. No clubbing, no cyanosis. Peripheral pulses are intact. - Labs CBC & Chem 7: 05/18/23 05:24 05/18/23 05:24 Labs: Abnormal Lab Results - Last 24 Hours (Table) 05/17/23 05/18/23 05/18/23 Range/Units 06:32 05:24 05:24 RBC 3.70 L (4.10-5.20) X 10*6/uL Hgb 11.3 L (12.0-15.0) d/dL Hct 36.2 L (37.2-46.3) % MCV 97.8 H (80.0-97.0) FL MCHC 31.2 L (32.0-37.0) d/dL RDW 15.2 H (11.5-14.5) % Creatinine 0.3 L 0.4 L (0.6-1.5) mg/dL BUN/Creatinine Ratio 58.67 H 43.75 H (12.00-20.00) Ratio Total Bilirubin <0.2 L (0.3-1.2) mg/dL Total Protein 5.7 L (6.2-8.2) d/dL Albumin 3.3 L (3.8-4.9) d/dL Albumin/Globulin Ratio 1.38 L (1.60-3.17) Ratio Microbiology - Last 24 Hours (Table) 05/15/23 08:25 Blood Culture - Preliminary Blood 05/15/23 08:34 Blood Culture - Preliminary Blood Assessment and Plan Assessment: The patient has had recurrent respiratory tract infection. The patient was diagnosed having MRSA pneumonia on multiple occasions including this admission with MRSA and Pseudomonas aeruginosa in her sputum and MRSA in her blood cultures. She has a right lower lobe consolidation. Currently on vancomycin and cefepime. Follow-up blood cultures are revealing no growth thus far. PICC line placed. 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 Is also partially affecting her speech Laryngeal papillomatosis -underlying periodic endoscopies with resections at [facility]. Previous history of pulmonary embolism and the patient is currently on anticoagulation with Eliquis Hypothyroidism History of seizure disorder Plan: The patient was seen and evaluated Labs and medications reviewed PICC line placed Antibiotics per ID services 500 ML's fluid bolus given Continued on midodrine 3 times a day Continue to monitor blood pressure Increase her activity as tolerated This patient was seen independently by the nurse practitioner I have personally seen and examined the patient, performed the documentation and the assessment and plan as written. Number of minutes spent on the visit: 34.
--- NOTE | 2023-05-18 20:39 | P.PN ---
Subjective Progress Note Date: 05/18/23 * 62-year-old lady with past medical history significant for squamous cell carcinoma of tongue, history of pulmonary embolism, COPD, previous history of MRSA presented to the emergency department with complaints of shortness of breath. * Patient was sent in on instructions of her primary care physician secondary to an outpatient chest x-ray done which showed worsening infiltrate in lung. Patient has been on outpatient antibiotic including Augmentin, and doxycycline and completed approximately 2 week course of antibiotic. Patient had been complaining pleuritic chest pain cough, green sputum production and shortness of breath * She denied associated fever, chills, palpitations, nausea vomiting diarrhea or abdominal pain * Chest x-ray obtained on admission showed right lower lobe infiltrate with smal l effusion * Workup initiated in ER including hematology which included normal WBC count hemoglobin 13.2 platelet count within normal limits differential within normal limits. Serum chemistry showed sodium of 136 chloride 94 be on 18 creatinine 0.3 CRP of 18 N-terminal proBNP of 203 Objective - Vital Signs Vital signs: Vital Signs Temp 98.3 F 05/18/23 15:00 Pulse 71 05/18/23 15:00 Resp 22 05/18/23 15:00 BP 80/46 05/18/23 15:00 Pulse Ox 92 L 05/18/23 15:00 FiO2 Intake & Output 05/17/23 05/18/23 05/18/23 18:59 06:59 18:59 Output Total 200 Balance -200 Weight 46.1 kg 46.6 kg Output: Urine 200 Other: Voiding Method Toilet # Voids 2 - Exam GENERAL: The patient is alert and oriented x3, ill appearance, underweight HEENT: Pupils are round and equally reacting to light. EOMI. CARDIOVASCULAR: S1 and S2 present. No murmurs, rubs, or gallops. PULMONARY: Chest is clear to auscultation, no wheezing or crackles. ABDOMEN: Soft, nontender, nondistended, normoactive bowel sounds. No palpable organomegaly. MUSCULOSKELETAL: No joint swelling or deformity. EXTREMITIES: No cyanosis, clubbing, or pedal edema. NEUROLOGICAL: Gross neurological examination did not reveal any focal deficits. SKIN: No rashes. - Labs CBC & Chem 7: 05/18/23 05:24 05/18/23 05:24 Labs: Abnormal Lab Results - Last 24 Hours (Table) 05/18/23 05/18/23 Range/Units 05:24 05:24 RBC 3.70 L (4.10-5.20) X 10*6/uL Hgb 11.3 L (12.0-15.0) d/dL Hct 36.2 L (37.2-46.3) % MCV 97.8 H (80.0-97.0) FL MCHC 31.2 L (32.0-37.0) d/dL RDW 15.2 H (11.5-14.5) % Creatinine 0.4 L (0.6-1.5) mg/dL BUN/Creatinine Ratio 43.75 H (12.00-20.00) Ratio Microbiology - Last 24 Hours (Table) 05/15/23 08:25 Blood Culture - Preliminary Blood 05/15/23 08:34 Blood Culture - Preliminary Blood Assessment and Plan Assessment: * RIGHT lower lobe pneumonia, with the current aspiration pneumonia MRSA pneumonia * Staph aureus bacteremia * History of squamous cell carcinoma of tongue * History of radiation pneumonitis * Diarrhea rule out infectious etiology * Dysphagia * Status post feeding tube in place * History of thromboembolism * Chronic pain syndrome * In regards to pneumonia Continue patient on broad-spectrum antibiotic on cefepime and vancomycin, infectious disease and pulmonary medicine following * Urine Legionella negative, sputum cultures grew MRSA, blood cultures show gram-positive cocci staph aureus, MRSA, repeat blood cultures ordered pending * Consultations obtained from dietitian to initiate tube feeding * In regards to history of pulmonary embolism, continue patient on Eliquis * In regards to chronic pain continue current regimen including gabapentin, [place] * In regards to diarrhea stool C. diff ordered started on probiotics * CT chest negative for intrathoracic mass/malignancy/embolism * CODE STATUS is full code
--- NOTE | 2023-05-18 23:26 | P.PN ---
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 On today's evaluation that is 05/18/2023, the patient continues to be afebrile the patient is breathing comfortably on room air, the patient denies chest pain or cough, patient denies abdominal pain and no nausea/vomiting , Pt is complaining of diarrhea, no blood or mucus in stools White count is 8.65, creatinine 0.4 , Sputum is growing staph aureus and pseudomonas aeruginosa, the patient blood culture with MRSA, repeat blood culture negative Objective - Vital Signs Vital signs: Vital Signs Temp 97.7 F 05/18/23 07:15 Pulse 74 05/18/23 09:40 Resp 16 05/18/23 07:15 BP 106/71 05/18/23 09:40 Pulse Ox 95 05/18/23 07:15 FiO2 Intake & Output 05/17/23 05/18/23 05/18/23 18:59 06:59 18:59 Output Total 200 Balance -200 Weight 46.1 kg 46.6 kg Output: Urine 200 Other: Voiding Method Toilet # Voids 2 - Exam GENERAL DESCRIPTION: Middle-age female up in bed in no distress RESPIRATORY SYSTEM: Unlabored breathing , decreased breath sounds at bases HEART: S1 S2 regular rate and rhythm , ABDOMEN: Soft , no tenderness EXTREMITIES: No edema feet - Labs CBC & Chem 7: 05/18/23 05:24 05/18/23 05:24 Labs: Abnormal Lab Results - Last 24 Hours (Table) 05/17/23 05/18/23 05/18/23 Range/Units 06:32 05:24 05:24 RBC 3.70 L (4.10-5.20) X 10*6/uL Hgb 11.3 L (12.0-15.0) d/dL Hct 36.2 L (37.2-46.3) % MCV 97.8 H (80.0-97.0) FL MCHC 31.2 L (32.0-37.0) d/dL RDW 15.2 H (11.5-14.5) % Creatinine 0.3 L 0.4 L (0.6-1.5) mg/dL BUN/Creatinine Ratio 58.67 H 43.75 H (12.00-20.00) Ratio Total Bilirubin <0.2 L (0.3-1.2) mg/dL Total Protein 5.7 L (6.2-8.2) d/dL Albumin 3.3 L (3.8-4.9) d/dL Albumin/Globulin Ratio 1.38 L (1.60-3.17) Ratio Microbiology - Last 24 Hours (Table) 05/15/23 08:25 Blood Culture - Preliminary Blood 05/15/23 08:34 Blood Culture - Preliminary Blood Assessment and Plan (1) Failure of outpatient treatment Current Visit: Yes Status: Acute Code(s): Z78.9 - OTHER SPECIFIED HEALTH STATUS SNOMED Code(s): 845933342 (2) Pneumonia Current Visit: Yes Status: Acute Code(s): J18.9 - PNEUMONIA, UNSPECIFIED ORGANISM SNOMED Code(s): 611008592 (3) MRSA bacteremia Current Visit: Yes Status: Acute Code(s): R78.81 - BACTEREMIA; B95.62 - METHICILLIN RESIS STAPH INFCT CAUSING DISEASES CLASSD ELSWHR SNOMED Code(s): 94771034596451358 Plan: 1patient presented to the hospital with a increasing shortness of breath also have a cough moderate intensity bringing up some greenish sputum failing outpatient oral Augmentin therapy with a sputum culture done on 05/09/2023 did grew pseudomonas aeruginosa and Streptococcus agalactiae 2- sputum is growing MRSA and pseudomonas aeruginosa blood culture with MRSA 3-blood cultures has been repeated and so far pending 4plan is to continue with vancomycin and cefepime to finish two-week course of antibiotic therapy 5- Diarrhea will check stool for c diff and treat if positive , encouraged to increase probiotic intake Dictation was produced using [employer] software. please excuse any grammatical, word or spelling errors. Time with Patient: Less than 30
[2023-05-19] MEDS: VANCOMYCIN 750 MG in SODIUM CHLORIDE 0.9% 250 ML IVPB SCH ×4 (00:02→23:01)
[2023-05-19] MEDS: CEFEPIME 2 GM in SODIUM CHLORIDE 0.9% 100 ML IVPB SCH ×4 (00:02→23:01)
[2023-05-19] MEDS: HYDROcodone/APAP 15 ML SOLUTION PEG/G-TUBE PRN ×4 (00:43→23:01)
[2023-05-19] MEDS: HYDROmorphone 1 MG/ML 1 ML SYRINGE IVP PRN ×5 (03:22→21:06)
[2023-05-19] MEDS: SODIUM CHLORIDE 0.9% 1,000 ML IV SCH ×3 (04:58→23:46)
[2023-05-19] MEDS: MIDODRINE 5 MG TAB PO SCH ×2 (06:01→12:40)
[2023-05-19] MEDS: LIDOCAINE 5% PATCH TOPICAL SCH (09:13)
[2023-05-19] MEDS: LACTOBACILLUS ACIDOPHILUS/PECT 1 EACH CAPSULE PO SCH (09:16)
[2023-05-19] MEDS: LEVOTHYROXINE 75 MCG TAB PEG/G-TUBE SCH (09:17)
[2023-05-19] MEDS: APIXABAN 5 MG TAB PO SCH ×2 (09:17→21:05)
[2023-05-19] MEDS: ASPIRIN 81 MG PEG/G-TUBE SCH (09:17)
[2023-05-19 09:45] LABS: Blood Urea Nitrogen 14.6 mg/dL (9.0-27.0); Calcium 8.9 mg/dL (8.7-10.3); Carbon Dioxide 29.2 mmol/L (21.6-31.8); Chloride 103 mmol/L (96-109); Glucose 85 mg/dL (70-110); Potassium 4.5 mmol/L (3.5-5.5); Sodium 140 mmol/L (135-145)
[2023-05-19 09:56] LABS: Basophils # (A) 0.04 X 10*3/uL (0.00-0.10); Basophils % (A) 0.5 %; Eosinophils # (A) 0.71 X 10*3/uL (0.04-0.35); Eosinophils % (A) 8.5 %; HCT 35.3 % (37.2-46.3); HGB 10.8 d/dL (12.0-15.0); Lymphocytes # (A) 1.92 X 10*3/uL (0.90-5.00); Lymphocytes % (A) 22.9 %; MCH 30.1 pg (27.0-32.0); MCHC 30.6 d/dL (32.0-37.0); MCV 98.3 FL (80.0-97.0); Mean Platelet Volume 11.7 FL (9.5-12.2); Monocytes # (A) 0.75 X 10*3/uL (0.20-1.00); Monocytes % (A) 8.9 %; NRBC Per 100 WBC 0 X 10*3/uL (0.00-0.01); Neutrophils # (A) 4.95 X 10*3/uL (1.80-7.70); Platelet Count 241 X 10*3/uL (140-440); RBC 3.59 X 10*6/uL (4.10-5.20); RDW 15.2 % (11.5-14.5); WBC 8.39 X 10*3/uL (4.50-10.00)
[2023-05-19] MEDS: GABAPENTIN 300 MG/6 ML PEG/G-TUBE SCH ×3 (10:06→21:45)
--- NOTE | 2023-05-19 11:47 | P.PN ---
Subjective Progress Note Date: 05/19/23 I'm seeing this patient in consultation for episodes of pneumonia. The patient has less for right lower lobe pneumonia. The patient is known as taking care of this patient in the past for recurrent right-sided pneumonia and previous MRSA infection of the right lung. This patient is an ex-smoker. She has a very complicated history of a cancer involving the base of her tongue. 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 The patient underwent surgical resection. Following that, the patient had radical neck dissection, muscle flap, and radiation therapy to her neck that causes significant amount of scarring, dry mouth/xerostomia, and limitation her jaw movement and further complications that required a jaw replacement. Bone graft was obtained from her right lower extremity. For now, she has a limited mouth opening, no teeth, extensive multiple scarring in her soft palate, difficulties with swallowing and difficulties in meeting her caloric requirements. The patient and mainly relying on ensure and boost shakes. the patient has been able to maintain her body weight. Despite being very careful, on and off, she has had episodes of aspiration and reviewing her previous chest x-rays from early 2021 and 2020 has revealed infiltration of the right lung base, a typical location for an aspiration pneumonia/aspiration pneumonitis. The patient does not take any solids. No choking episodes. On a separate note, the patient was also diagnosed having subclavian vein thrombosis, probably another complication of her radiation therapy to her neck, and the patient is currently on long-term anticoagulation with Eliquis. No previous history of cardiac disease. No previous history of DVTs.. No history of any interstitial lung disease and the scarring that are seen in the lung apices related to previous radiation therapy. No childhood asthma. She is not using any pulmonary vascular medications or inhalers for now. Noted the patient is also Covid 19 infection July [id number]. She carries history of recurrent pneumonias. She had a pneumonia in January 2023 and she was hospitalized for a total of 11 days and she was discharged on February 2023. She was treated with Augmentin following that and the repeat chest x-ray was showing a right lower lobe consolidation. Further sputum analysis showed MRSA and the patient was treated with doxycycline. She improved consid erably and subsequent chest x-ray shows clearing of the right lung infiltrates. Subsequently, the patient became symptomatic again and she was treated through her primary care physician. Sputum was collected on 04/17/2023 that showed strep and other sputum on 05/09/2023 showed Pseudomonas along with strep group B. On today's evaluation of 05/13/2023, the patient remains on room air oxygen, currently covered with a combination of vancomycin and cefepime. She has a congested cough. Unable to bring up much sputum. D-dimer was at 0.4. The patient has a white cell count of 6 with a hemoglobin 12.6. BUN is at 21 with a creatinine of 0.38 and a sodium level is at 137. She is ambulating. No nausea or vomiting. No diarrhea. She continues to receive enteral feeding for nutritional support. No altered mentation. The patient is seen today 05/14/2023 in follow-up on the regular medical floor. She is currently resting comfortably in bed. Maintain O2 saturations in the 90s on room air. She's been afebrile. Hemodynamically stable. Blood cultures are positive for presumptive MRSA. Sputum culture is positive for MRSA and pseudomonas aeruginosa. White count 5.8. Hemoglobin 13.4. Platelets 246. Sodium 141. Potassium 4.4. Bicarb 31. BUN 16. Creatinine 0.33. She remains on vancomycin and cefepime. He nourished via tube feedings. PEG tube was placed in January 2023. The patient is seen today 05/15/2023 in follow-up on the regular medical floor. She is currently sitting up in a chair. Awake and alert in no acute distress. Maintaining O2 saturations in the 90s on room air. Blood culture positive for MRSA. Sputum culture positive for MRSA and pseudomonas aeruginosa. Currently on vancomycin and cefepime. White count 7.3. Hemoglobin 13.6. Platelets 269. Sodium 143. Potassium 4.5. Bicarb 32. BUN 18. Creatinine 0.4. Glucose 103. Vancomycin trough 10.2. Anticoagulated with Eliquis. Being nourished with TwoCal HN bolus feedings via PEG tube. The patient is seen today 05/16/2023 in follow-up on the regular medical floor. She is sitting in bed. Awake and alert in no acute distress. Denies any worsening shortness of breath, cough or congestion. She is maintaining O2 saturations in the 90s on room air. White count 9.3. Hemoglobin 11.7. Sodium 138. Potassium 5.8. Bicarb 28. BUN 18. Creatinine 0.4. Glucose 111. C- reactive protein 1.10. She is continued on vancomycin and cefepime. Normal saline at 100 ML's per hour. Anticoagulated with Eliquis. Sputum cultures positive for MRSA and pseudomonas aeruginosa, blood cultures positive for MRSA. Follow-up blood cultures are pending. Once cleared a PICC line will be placed for long-term IV antibiotics. She is being nourished with TwoCal HN bolus feedings via her PEG tube. The patient is seen today 05/17/2023 in follow-up on the regular medical floor. She remains awake and alert in no acute distress. Sitting up in bed. Denies any worsening shortness of breath, cough or congestion. Maintaining good O2 saturations in the 90s on room air. Sputum culture was positive for MRSA and pseudomonas aeruginosa, initial blood culture positive for MRSA. Repeat blood cultures from 05/15/2023 are revealing no growth thus far. White count 8.5. Hemoglobin 11.8. Platelets 270. Vancomycin trough 16.4. She remains afebrile. She remains on vancomycin and cefepime. Anticoagulated with Eliquis. The patient is seen today 05/18/2023 in follow-up on the regular medical floor. She is up ambulating in her room. Awake and alert in no acute distress. Good O2 saturations in the 90s on room air. She did have a PICC line placed yesterday. Initial blood cultures were positive for MRSA. Sputum cultures positive for MRSA and pseudomonas aeruginosa. Follow-up blood cultures from 05/15/2023 are revealing no growth thus far. White count 8.6. Hemoglobin 11.3. Platelets 260. Sodium 140. Potassium 4.7. Bicarb 29. BUN 18. Creatinine 0.4. C-reactive protein 0.60. C. difficile screen was negative. He was having some low blood pressures in the 70s systolic early this morning. She received 500 mL bolus. She is on midodrine. She remains on vancomycin and cefepime. Anticoagulated with Eliquis. The patient is seen today 05/19/2023 in follow-up on the regular medical floor. She is sitting up in bed. Awake and alert in no acute distress. Continues to maintain good O2 saturation in the 90s on room air. White count 8.3. Hemoglobin 10.8. Sodium 140. Potassium 4.5. Bicarb 29. BUN 15. Creatinine 0.4. Initial blood cultures were positive for MRSA. Sputum culture was positive for MRSA and pseudomonas. Follow-up blood cultures from 05/15/2023 are revealing no growth. She remains on vancomycin and cefepime per ID service. Anticoagulated with Eliquis. Objective - Vital Signs Vital signs: Vital Signs Temp 97.7 F 05/19/23 07:06 Pulse 66 05/19/23 07:06 Resp 18 05/19/23 07:06 BP 89/58 05/19/23 07:06 Pulse Ox 93 L 05/19/23 07:06 FiO2 Intake & Output 05/18/23 05/19/23 05/19/23 18:59 06:59 18:59 Output Total 200 Balance -200 Weight 46.8 kg Output: Urine 200 Other: Voiding Method Toilet # Voids 2 - Exam GENERAL EXAM: Alert, oriented 62-year-old female, on room air, in no apparent distress. HEAD: Normocephalic. EYES: Normal reaction of pupils, equal size. NOSE: Clear with pink turbinates. THROAT: No erythema or exudates. NECK: Radiation changes noted to the neck with muscle flap. No masses, no JVD. CHEST: No chest wall deformity. LUNGS: Equal air entry with no crackles, wheeze, rhonchi or dullness. CVS: S1 and S2 normal with no audible murmur, regular rhythm. ABDOMEN: PEG tube in place. Exit site clean and dry. Normal bowel sounds, no guarding or rigidity. SPINE: No scoliosis or deformity SKIN: No rashes CENTRAL NERVOUS SYSTEM: No focal deficits, tone is normal in all 4 extremities. EXTREMITIES: PICC line in place. There is no peripheral edema. No clubbing, no cyanosis. Peripheral pulses are intact. - Labs CBC & Chem 7: 05/19/23 05:27 05/19/23 05:27 Labs: Abnormal Lab Results - Last 24 Hours (Table) 05/19/23 05/19/23 Range/Units 05:27 05:27 RBC 3.59 L (4.10-5.20) X 10*6/uL Hgb 10.8 L (12.0-15.0) d/dL Hct 35.3 L (37.2-46.3) % MCV 98.3 H (80.0-97.0) FL MCHC 30.6 L (32.0-37.0) d/dL RDW 15.2 H (11.5-14.5) % Eosinophils # 0.71 H (0.04-0.35) X 10*3/uL Creatinine 0.4 L (0.6-1.5) mg/dL BUN/Creatinine Ratio 36.50 H (12.00-20.00) Ratio Microbiology - Last 24 Hours (Table) 05/15/23 08:25 Blood Culture - Preliminary Blood 05/15/23 08:34 Blood Culture - Preliminary Blood Assessment and Plan Assessment: The patient has had recurrent respiratory tract infection. The patient was diagnosed having MRSA pneumonia on multiple occasions including this admission with MRSA and Pseudomonas aeruginosa in her sputum and MRSA in her blood cultures. She has a right lower lobe consolidation. Currently on vancomycin and cefepime. Follow-up blood cultures are revealing no growth thus far. PICC line placed. 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 Is also partially affecting her speech Laryngeal papillomatosis -underlying periodic endoscopies with resections at [facility]. Previous history of pulmonary embolism and the patient is currently on anticoagulation with Eliquis Hypothyroidism History of seizure disorder Plan: The patient was seen and evaluated Labs and medications reviewed Antibiotics per ID services Cleared for discharge from the pulmonary standpoint This patient was seen independently by the nurse practitioner I have personally seen and examined the patient, performed the documentation and the assessment and plan as written. Number of minutes spent on the visit: 25.
[2023-05-19] MEDS: CHOLESTYRAMINE (WITH SUGAR) 4 GM PACKET PEG/G-TUBE SCH ×2 (12:40→18:37)
--- NOTE | 2023-05-19 14:24 | P.PN ---
Subjective Progress Note Date: 05/19/23 Principal diagnosis: Pneumonia and bacteremia Patient is a 62 year old female with a past medical history significant for squamous cell carcinoma at the base of the tongue and neck and this patient was status post chemoradiation and did have a PEG tube for feeding patient also history of COPD PE and seizure disorder, recently has been dealing with increasing cough and sputum production, feeling outpatient oral Augmentin therapy with evidence of right lower lobe pneumonia, with a sputum culture done 05/09/2023 grew pseudomonas aeruginosa. On today's evaluation that is 05/19/2023, the patient remains to be afebrile the patient is breathing comfortably on room air and not requiring supplemental oxygen, the patient denies chest pain and no significant cough, patient denies abdominal pain and no nausea/vomiting , Pt is complaining of diarrhea like water no blood or mucus in stools White count is 8.39, creatinine 0.4 , stools for c diff negative , Sputum is g rowing staph aureus and pseudomonas aeruginosa, the patient blood culture with MRSA, repeat blood culture negative Objective - Vital Signs Vital signs: Vital Signs Temp 97.7 F 05/19/23 07:06 Pulse 66 05/19/23 07:06 Resp 18 05/19/23 07:06 BP 89/58 05/19/23 07:06 Pulse Ox 93 L 05/19/23 07:06 FiO2 Intake & Output 05/18/23 05/19/23 05/19/23 18:59 06:59 18:59 Output Total 200 Balance -200 Weight 46.8 kg Output: Urine 200 Other: Voiding Method Toilet # Voids 2 - Exam GENERAL DESCRIPTION: Middle-age female up in bed in no distress RESPIRATORY SYSTEM: Unlabored breathing , decreased breath sounds at bases HEART: S1 S2 regular rate and rhythm , ABDOMEN: Soft , no tenderness EXTREMITIES: No edema feet - Labs CBC & Chem 7: 05/19/23 05:27 05/19/23 05:27 Labs: Microbiology - Last 24 Hours (Table) 05/15/23 08:25 Blood Culture - Preliminary Blood 05/15/23 08:34 Blood Culture - Preliminary Blood Assessment and Plan (1) Failure of outpatient treatment Current Visit: Yes Status: Acute Code(s): Z78.9 - OTHER SPECIFIED HEALTH STATUS SNOMED Code(s): 256939292 (2) Pneumonia Current Visit: Yes Status: Acute Code(s): J18.9 - PNEUMONIA, UNSPECIFIED ORGANISM SNOMED Code(s): 615121972 (3) MRSA bacteremia Current Visit: Yes Status: Acute Code(s): R78.81 - BACTEREMIA; B95.62 - METH ICILLIN RESIS STAPH INFCT CAUSING DISEASES CLASSD [id number] SNOMED Code(s): 09257470986579749 Plan: 1patient presented to the hospital with a increasing shortness of breath also have a cough moderate intensity bringing up some greenish sputum failing outpatient oral Augmentin therapy with a sputum culture done on 05/09/2023 did grew pseudomonas aeruginosa and Streptococcus agalactiae 2- sputum is growing MRSA and pseudomonas aeruginosa blood culture with MRSA 3-blood cultures has been repeated and so far pending 4plan is to continue with vancomycin and cefepime to finish two-week course of antibiotic therapy 5- Diarrhea stool for c diff negative , will add questran for symptomatic relief Dictation was produced using [employer] dictation software. please excuse any grammatical, word or spelling errors. Time with Patient: Less than 30
[2023-05-19] MEDS ORDERED: MIDODRINE 5 MG TAB PO PRN (17:06)
--- NOTE | 2023-05-19 20:31 | P.PN ---
Subjective Progress Note Date: 05/19/23 * 62-year-old lady with past medical history significant for squamous cell carcinoma of tongue, history of pulmonary embolism, COPD, previous history of MRSA presented to the emergency department with complaints of shortness of breath. * Patient was sent in on instructions of her primary care physician secondary to an outpatient chest x-ray done which showed worsening infiltrate in lung. Patient has been on outpatient antibiotic including Augmentin, and doxycycline and completed approximately 2 week course of antibiotic. Patient had been complaining pleuritic chest pain cough, green sputum production and shortness of breath * She denied associated fever, chills, palpitations, nausea vomiting diarrhea or abdominal pain * Chest x-ray obtained on admission showed right lower lobe infiltrate with smal l effusion * Workup initiated in ER including hematology which included normal WBC count hemoglobin 13.2 platelet count within normal limits differential within normal limits. Serum chemistry showed sodium of 136 chloride 94 be on 18 creatinine 0.3 CRP of 18 N-terminal proBNP of 203 05/19/2023 patient is seen and evaluated in room at bedside; in follow-up on the regular medical floor. She is sitting up in bed. Awake and alert in no acute distress. Continues to maintain good O2 saturation in the 90s on room air. White count 8.3. Hemoglobin 10.8. Sodium 140. Potassium 4.5. Bicarb 29. BUN 15. Creatinine 0.4. Initial blood cultures were positive for MRSA. Sputum culture was positive for MRSA and pseudomonas. Follow-up blood cultures from 05/15/2023 are revealing no growth. She remains on vancomycin and cefepime per ID service. Anticoagulated with Eliquis. Labs and medications reviewed Antibiotics per ID services -- Blood pressure is somewhat improved on Midrin; we will plan to change Midodrin to when necessary for systolic blood pressure less than 90 or diastolic less than 60 - To discharge patient in next 24-48 hours. Remains stable Objective - Vital Signs Vital signs: Vital Signs Temp 97.5 F L 05/19/23 14:33 Pulse 69 05/19/23 14:33 Resp 16 05/19/23 14:33 BP 106/70 05/19/23 14:33 Pulse Ox 96 05/19/23 14:33 FiO2 Intake & Output 05/18/23 05/19/23 05/19/23 18:59 06:59 18:59 Output Total 200 Balance -200 Weight 46.8 kg Output: Urine 200 Other: Voiding Method Toilet Toilet # Voids 2 - Exam GENERAL: The patient is alert and oriented x3, ill appearance, underweight HEENT: Pupils are round and equally reacting to light. EOMI. CARDIOVASCULAR: S1 and S2 present. No murmurs, rubs, or gallops. PULMONARY: Chest is clear to auscultation, no wheezing or crackles. ABDOMEN: Soft, nontender, nondistended, normoactive bowel sounds. No palpable organomegaly. MUSCULOSKELETAL: No joint swelling or deformity. EXTREMITIES: No cyanosis, clubbing, or pedal edema. NEUROLOGICAL: Gross neurological examination did not reveal any focal deficits. SKIN: No rashes. - Labs CBC & Chem 7: 05/19/23 05:27 05/19/23 05:27 Labs: Abnormal Lab Results - Last 24 Hours (Table) 05/19/23 05/19/23 Range/Units 05:27 05:27 RBC 3.59 L (4.10-5.20) X 10*6/uL Hgb 10.8 L (12.0-15.0) d/dL Hct 35.3 L (37.2-46.3) % MCV 98.3 H (80.0-97.0) FL MCHC 30.6 L (32.0-37.0) d/dL RDW 15.2 H (11.5-14.5) % Eosinophils # 0.71 H (0.04-0.35) X 10*3/uL Creatinine 0.4 L (0.6-1.5) mg/dL BUN/Creatinine Ratio 36.50 H (12.00-20.00) Ratio Microbiology - Last 24 Hours (Table) 05/15/23 08:25 Blood Culture - Preliminary Blood 05/15/23 08:34 Blood Culture - Preliminary Blood Assessment and Plan Assessment: * RIGHT lower lobe pneumonia, with the current aspiration pneumonia MRSA pneu monia * Staph aureus bacteremia * History of squamous cell carcinoma of tongue * History of radiation pneumonitis * Diarrhea rule out infectious etiology * Dysphagia * Status post feeding tube in place * History of thromboembolism * Chronic pain syndrome * In regards to pneumonia Continue patient on broad-spectrum antibiotic on cefepime and vancomycin, infectious disease and pulmonary medicine following * Urine Legionella negative, sputum cultures grew MRSA, blood cultures show gram-positive cocci staph aureus, MRSA, repeat blood cultures ordered pending * Consultations obtained from dietitian to initiate tube feeding * In regards to history of pulmonary embolism, continue patient on Eliquis * In regards to chronic pain continue current regimen including gabapentin, [place] * In regards to diarrhea stool C. diff ordered started on probiotics * CT chest negative for intrathoracic mass/malignancy/embolism * CODE STATUS is full code
[2023-05-20] MEDS: HYDROmorphone 1 MG/ML 1 ML SYRINGE IVP PRN ×5 (01:06→22:22)
[2023-05-20] MEDS: HYDROcodone/APAP 15 ML SOLUTION PEG/G-TUBE PRN ×4 (03:40→20:58)
[2023-05-20 06:33] LABS: African American GFR (CKD) >90 (>60 ml/min/1.73 sqM); Anion Gap 5 mmol/L; Blood Urea Nitrogen 16 mg/dL (7-17); Calcium 8.8 mg/dL (8.4-10.2); Carbon Dioxide 31 mmol/L (22-30); Chloride 102 mmol/L (98-107); Glucose 91 mg/dL (74-99); Non-African American GFR(CKD) >90 (>60 ml/min/1.73 sqM); Potassium 3.9 mmol/L (3.5-5.1); Sodium 138 mmol/L (137-145)
[2023-05-20] MEDS ORDERED: VANCOMYCIN TROUGH DUE 1 EACH MISC MISCELLANE ONE (07:00)
[2023-05-20] MEDS: CEFEPIME 2 GM in SODIUM CHLORIDE 0.9% 100 ML IVPB SCH ×2 (08:46→16:53)
[2023-05-20] MEDS: VANCOMYCIN 750 MG in SODIUM CHLORIDE 0.9% 250 ML IVPB SCH ×2 (08:47→20:28)
[2023-05-20] MEDS: LACTOBACILLUS ACIDOPHILUS/PECT 1 EACH CAPSULE PO SCH (08:47)
[2023-05-20] MEDS: ASPIRIN 81 MG PEG/G-TUBE SCH (08:47)
[2023-05-20] MEDS: GABAPENTIN 300 MG/6 ML PEG/G-TUBE SCH ×3 (08:47→23:10)
[2023-05-20] MEDS: LEVOTHYROXINE 75 MCG TAB PEG/G-TUBE SCH (08:47)
[2023-05-20] MEDS: APIXABAN 5 MG TAB PO SCH ×2 (08:47→22:21)
[2023-05-20] MEDS: LIDOCAINE 5% PATCH TOPICAL SCH (08:48)
[2023-05-20] MEDS: SODIUM CHLORIDE 0.9% 1,000 ML IV SCH ×2 (08:49→22:38)
[2023-05-20] MEDS: CHOLESTYRAMINE (WITH SUGAR) 4 GM PACKET PEG/G-TUBE SCH ×2 (08:49→17:46)
[2023-05-20 08:58] LABS: Basophils # (A) 0.04 X 10*3/uL (0.00-0.10); Basophils % (A) 0.5 %; Eosinophils # (A) 0.73 X 10*3/uL (0.04-0.35); Eosinophils % (A) 9.8 %; HCT 35.2 % (37.2-46.3); HGB 10.9 d/dL (12.0-15.0); Lymphocytes # (A) 1.71 X 10*3/uL (0.90-5.00); MCH 30.4 pg (27.0-32.0); MCV 98.1 FL (80.0-97.0); Mean Platelet Volume 12.5 FL (9.5-12.2); Monocytes # (A) 0.65 X 10*3/uL (0.20-1.00); Monocytes % (A) 8.7 %; NRBC Per 100 WBC 0 X 10*3/uL (0.00-0.01); Neutrophils # (A) 4.28 X 10*3/uL (1.80-7.70); Neutrophils % (A) 57.7 %; Platelet Count 236 X 10*3/uL (140-440); RBC 3.59 X 10*6/uL (4.10-5.20); RDW 15.1 % (11.5-14.5); WBC 7.43 X 10*3/uL (4.50-10.00)
--- NOTE | 2023-05-20 12:15 | P.PN ---
Subjective Progress Note Date: 05/20/23 I'm seeing this patient in consultation for episodes of pneumonia. The patient has less for right lower lobe pneumonia. The patient is known as taking care of this patient in the past for recurrent right-sided pneumonia and previous MRSA infection of the right lung. This patient is an ex-smoker. She has a very complicated history of a cancer involving the base of her tongue. 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 The patient underwent surgical resection. Following that, the patient had radical neck dissection, muscle flap, and radiation therapy to her neck that causes significant amount of scarring, dry mouth/xerostomia, and limitation her jaw movement and further complications that required a jaw replacement. Bone graft was obtained from her right lower extremity. For now, she has a limited mouth opening, no teeth, extensive multiple scarring in her soft palate, difficulties with swallowing and difficulties in meeting her caloric requirements. The patient and mainly relying on ensure and boost shakes. the patient has been able to maintain her body weight. Despite being very careful, on and off, she has had episodes of aspiration and reviewing her previous chest x-rays from early 2021 and 2020 has revealed infiltration of the right lung base, a typical location for an aspiration pneumonia/aspiration pneumonitis. The patient does not take any solids. No choking episodes. On a separate note, the patient was also diagnosed having subclavian vein thrombosis, probably another complication of her radiation therapy to her neck, and the patient is currently on long-term anticoagulation with Eliquis. No previous history of cardiac disease. No previous history of DVTs.. No history of any interstitial lung disease and the scarring that are seen in the lung apices related to previous radiation therapy. No childhood asthma. She is not using any pulmonary vascular medications or inhalers for now. Noted the patient is also Covid 19 infection July [id number]. She carries history of recurrent pneumonias. She had a pneumonia in January 2023 and she was hospitalized for a total of 11 days and she was discharged on February 2023. She was treated with Augmentin following that and the repeat chest x-ray was showing a right lower lobe consolidation. Further sputum analysis showed MRSA and the patient was treated with doxycycline. She improved consid erably and subsequent chest x-ray shows clearing of the right lung infiltrates. Subsequently, the patient became symptomatic again and she was treated through her primary care physician. Sputum was collected on 04/17/2023 that showed strep and other sputum on 05/09/2023 showed Pseudomonas along with strep group B. On today's evaluation of 05/13/2023, the patient remains on room air oxygen, currently covered with a combination of vancomycin and cefepime. She has a congested cough. Unable to bring up much sputum. D-dimer was at 0.4. The patient has a white cell count of 6 with a hemoglobin 12.6. BUN is at 21 with a creatinine of 0.38 and a sodium level is at 137. She is ambulating. No nausea or vomiting. No diarrhea. She continues to receive enteral feeding for nutritional support. No altered mentation. The patient is seen today 05/14/2023 in follow-up on the regular medical floor. She is currently resting comfortably in bed. Maintain O2 saturations in the 90s on room air. She's been afebrile. Hemodynamically stable. Blood cultures are positive for presumptive MRSA. Sputum culture is positive for MRSA and pseudomonas aeruginosa. White count 5.8. Hemoglobin 13.4. Platelets 246. Sodium 141. Potassium 4.4. Bicarb 31. BUN 16. Creatinine 0.33. She remains on vancomycin and cefepime. He nourished via tube feedings. PEG tube was placed in January 2023. The patient is seen today 05/15/2023 in follow-up on the regular medical floor. She is currently sitting up in a chair. Awake and alert in no acute distress. Maintaining O2 saturations in the 90s on room air. Blood culture positive for MRSA. Sputum culture positive for MRSA and pseudomonas aeruginosa. Currently on vancomycin and cefepime. White count 7.3. Hemoglobin 13.6. Platelets 269. Sodium 143. Potassium 4.5. Bicarb 32. BUN 18. Creatinine 0.4. Glucose 103. Vancomycin trough 10.2. Anticoagulated with Eliquis. Being nourished with TwoCal HN bolus feedings via PEG tube. The patient is seen today 05/16/2023 in follow-up on the regular medical floor. She is sitting in bed. Awake and alert in no acute distress. Denies any worsening shortness of breath, cough or congestion. She is maintaining O2 saturations in the 90s on room air. White count 9.3. Hemoglobin 11.7. Sodium 138. Potassium 5.8. Bicarb 28. BUN 18. Creatinine 0.4. Glucose 111. C- reactive protein 1.10. She is continued on vancomycin and cefepime. Normal saline at 100 ML's per hour. Anticoagulated with Eliquis. Sputum cultures positive for MRSA and pseudomonas aeruginosa, blood cultures positive for MRSA. Follow-up blood cultures are pending. Once cleared a PICC line will be placed for long-term IV antibiotics. She is being nourished with TwoCal HN bolus feedings via her PEG tube. The patient is seen today 05/17/2023 in follow-up on the regular medical floor. She remains awake and alert in no acute distress. Sitting up in bed. Denies any worsening shortness of breath, cough or congestion. Maintaining good O2 saturations in the 90s on room air. Sputum culture was positive for MRSA and pseudomonas aeruginosa, initial blood culture positive for MRSA. Repeat blood cultures from 05/15/2023 are revealing no growth thus far. White count 8.5. Hemoglobin 11.8. Platelets 270. Vancomycin trough 16.4. She remains afebrile. She remains on vancomycin and cefepime. Anticoagulated with Eliquis. The patient is seen today 05/18/2023 in follow-up on the regular medical floor. She is up ambulating in her room. Awake and alert in no acute distress. Good O2 saturations in the 90s on room air. She did have a PICC line placed yesterday. Initial blood cultures were positive for MRSA. Sputum cultures positive for MRSA and pseudomonas aeruginosa. Follow-up blood cultures from 05/15/2023 are revealing no growth thus far. White count 8.6. Hemoglobin 11.3. Platelets 260. Sodium 140. Potassium 4.7. Bicarb 29. BUN 18. Creatinine 0.4. C-reactive protein 0.60. C. difficile screen was negative. He was having some low blood pressures in the 70s systolic early this morning. She received 500 mL bolus. She is on midodrine. She remains on vancomycin and cefepime. Anticoagulated with Eliquis. The patient is seen today 05/19/2023 in follow-up on the regular medical floor. She is sitting up in bed. Awake and alert in no acute distress. Continues to maintain good O2 saturation in the 90s on room air. White count 8.3. Hemoglobin 10.8. Sodium 140. Potassium 4.5. Bicarb 29. BUN 15. Creatinine 0.4. Initial blood cultures were positive for MRSA. Sputum culture was positive for MRSA and pseudomonas. Follow-up blood cultures from 05/15/2023 are revealing no growth. She remains on vancomycin and cefepime per ID service. Anticoagulated with Eliquis. The patient is seen today 05/20/2023 in follow-up on the regular medical floor. She remains awake and alert in no acute distress. Maintaining good O2 saturations in the 90s on room air. Continued on antibiotics in the form of vancomycin and cefepime. She is anticoagulated with Eliquis. Current blood pressure 96/63. Mean arterial pressure 74. White count 7.4. Hemoglobin 10.9. Platelets 236. Sodium 130. Potassium 3.9. Bicarb 31. BUN 16. Creatinine 0.31. Vancomycin trough 21.1. Objective - Vital Signs Vital signs: Vital Signs Temp 96.3 F L 05/20/23 07:00 Pulse 64 05/20/23 08:00 Resp 15 05/20/23 08:00 BP 96/63 05/20/23 07:00 Pulse Ox 96 05/20/23 07:00 FiO2 Intake & Output 05/19/23 05/20/23 05/20/23 18:59 06:59 18:59 Other: Voiding Method Toilet Toilet Toilet - Exam GENERAL EXAM: Alert, cachectic 62-year-old female, appears older than stated age, on room air, in no apparent distress. HEAD: Normocephalic. EYES: Normal reaction of pupils, equal size. NOSE: Clear with pink turbinates. THROAT: No erythema or exudates. NECK: Radiation changes noted to the neck with muscle flap. No masses, no JVD. CHEST: No chest wall deformity. LUNGS: Equal air entry with no crackles, wheeze, rhonchi or dullness. CVS: S1 and S2 normal with no audible murmur, regular rhythm. ABDOMEN: PEG tube in place. Exit site clean and dry. Normal bowel sounds, no guarding or rigidity. SPINE: No scoliosis or deformity SKIN: No rashes CENTRAL NERVOUS SYSTEM: No focal deficits, tone is normal in all 4 extremities. EXTREMITIES: PICC line in place. There is no peripheral edema. No clubbing, no cyanosis. Peripheral pulses are intact. - Labs CBC & Chem 7: 05/20/23 06:07 05/20/23 06:07 Labs: Abnormal Lab Results - Last 24 Hours (Table) 05/20/23 05/20/23 Range/Units 06:07 06:07 RBC 3.59 L (4.10-5.20) X 10*6/uL Hgb 10.9 L (12.0-15.0) d/dL Hct 35.2 L (37.2-46.3) % MCV 98.1 H (80.0-97.0) FL MCHC 31.0 L (32.0-37.0) d/dL RDW 15.1 H (11.5-14.5) % MPV 12.5 H (9.5-12.2) FL Eosinophils # 0.73 H (0.04-0.35) X 10*3/uL Carbon Dioxide 31 H (22-30) mmol/L Creatinine 0.31 L (0.52-1.04) mg/dL Assessment and Plan Assessment: The patient has had recurrent respiratory tract infection. The patient was diagnosed having MRSA pneumonia on multiple occasions including this admission with MRSA and Pseudomonas aeruginosa in her sputum and MRSA in her blood cultures. She has a right lower lobe consolidation. Currently on vancomycin and cefepime. Follow-up blood cultures are revealing no growth thus far. PICC line placed. 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 Is also partially affecting her speech Laryngeal papillomatosis -underlying periodic endoscopies with resections at [facility]. Previous history of pulmonary embolism and the patient is currently on anticoagulation with Eliquis Hypothyroidism History of seizure disorder Plan: The patient was seen and evaluated Labs and medications reviewed Antibiotics per ID services Currently on vancomycin and cefepime Anticoagulated with Eliquis Remains on midodrine This patient was seen independently by the nurse practitioner I have personally seen and examined the patient, performed the documentation and the assessment and plan as written. Number of minutes spent on the visit: 20.
[2023-05-20] MEDS: MIDODRINE 5 MG TAB PO SCH ×2 (14:10→17:50)
--- NOTE | 2023-05-20 18:17 | P.PN ---
Subjective Progress Note Date: 05/20/23 * 62-year-old lady with past medical history significant for squamous cell carcinoma of tongue, history of pulmonary embolism, COPD, previous history of MRSA presented to the emergency department with complaints of shortness of breath. * Patient was sent in on instructions of her primary care physician secondary to an outpatient chest x-ray done which showed worsening infiltrate in lung. Patient has been on outpatient antibiotic including Augmentin, and doxycycline and completed approximately 2 week course of antibiotic. Patient had been complaining pleuritic chest pain cough, green sputum production and shortness of breath * She denied associated fever, chills, palpitations, nausea vomiting diarrhea or abdominal pain * Chest x-ray obtained on admission showed right lower lobe infiltrate with smal l effusion * Workup initiated in ER including hematology which included normal WBC count hemoglobin 13.2 platelet count within normal limits differential within normal limits. Serum chemistry showed sodium of 136 chloride 94 be on 18 creatinine 0.3 CRP of 18 N-terminal proBNP of 203 05/19/2023 patient is seen and evaluated in room at bedside; in follow-up on the regular medical floor. She is sitting up in bed. Awake and alert in no acute distress. Continues to maintain good O2 saturation in the 90s on room air. White count 8.3. Hemoglobin 10.8. Sodium 140. Potassium 4.5. Bicarb 29. BUN 15. Creatinine 0.4. Initial blood cultures were positive for MRSA. Sputum culture was positive for MRSA and pseudomonas. Follow-up blood cultures from 05/15/2023 are revealing no growth. She remains on vancomycin and cefepime per ID service. Anticoagulated with Eliquis. Labs and medications reviewed Antibiotics per ID services -- Blood pressure is somewhat improved on Midrin; we will plan to change Midodrin to when necessary for systolic blood pressure less than 90 or diastolic less than 60 - To discharge patient in next 24-48 hours. Remains stable 05/20/2023 Patient is seen and evaluated in follow-up on the regular medical floor. She remains awake and alert in no acute distress. Maintaining good O2 saturations in the 90s on room air. Continued on antibiotics in the form of vancomycin and cefepime. She is anticoagulated with Eliquis. Current blood pressure 96/63. Mean arterial pressure 74. White count 7.4. Hemoglobin 10.9. Platelets 236. Sodium 130. Potassium 3.9. Bicarb 31. BUN 16. Creatinine 0.31. Vancomycin trough 21.1. -- Patient has been placed back on scheduled Midodrin 10 mg 3 times a day; we will titrate as needed Possible discharge in next 24 hours if blood pressure remains stable Objective - Vital Signs Vital signs: Vital Signs Temp 96.3 F L 05/20/23 07:00 Pulse 64 05/20/23 08:00 Resp 15 05/20/23 08:00 BP 96/63 05/20/23 07:00 Pulse Ox 96 05/20/23 07:00 FiO2 Intake & Output 05/19/23 05/20/23 05/20/23 18:59 06:59 18:59 Other: Voiding Method Toilet Toilet Toilet - Exam GENERAL: The patient is alert and oriented x3, ill appearance, underweight HEENT: Pupils are round and equally reacting to light. EOMI. CARDIOVASCULAR: S1 and S2 present. No murmurs, rubs, or gallops. PULMONARY: Chest is clear to auscultation, no wheezing or crackles. ABDOMEN: Soft, nontender, nondistended, normoactive bowel sounds. No palpable organomegaly. MUSCULOSKELETAL: No joint swelling or deformity. EXTREMITIES: No cyanosis, clubbing, or pedal edema. NEUROLOGICAL: Gross neurological examination did not reveal any focal deficits. SKIN: No rashes. - Labs CBC & Chem 7: 05/20/23 06:07 05/20/23 06:07 Labs: Abnormal Lab Results - Last 24 Hours (Table) 05/20/23 05/20/23 Range/Units 06:07 06:07 RBC 3.59 L (4.10-5.20) X 10*6/uL Hgb 10.9 L (12.0-15.0) d/dL Hct 35.2 L (37.2-46.3) % MCV 98.1 H (80.0-97.0) FL MCHC 31.0 L (32.0-37.0) d/dL RDW 15.1 H (11.5-14.5) % MPV 12.5 H (9.5-12.2) FL Eosinophils # 0.73 H (0.04-0.35) X 10*3/uL Carbon Dioxide 31 H (22-30) mmol/L Creatinine 0.31 L (0.52-1.04) mg/dL Assessment and Plan Assessment: * RIGHT lower lobe pneumonia, with the current aspiration pneumonia MRSA pneumonia * Staph aureus bacteremia * History of squamous cell carcinoma of tongue * History of radiation pneumonitis * Diarrhea rule out infectious etiology * Dysphagia * Status post feeding tube in place * History of thromboembolism * Chronic pain syndrome * In regards to pneumonia Continue patient on broad-spectrum antibiotic on cefepime and vancomycin, infectious disease and pulmonary medicine following * Urine Legionella negative, sputum cultures grew MRSA, blood cultures show gram-positive cocci staph aureus, MRSA, repeat blood cultures ordered pending * Consultations obtained from dietitian to initiate tube feeding * In regards to history of pulmonary embolism, continue patient on Eliquis * In regards to chronic pain continue current regimen including gabapentin, Oriental * In regards to diarrhea stool C. diff ordered started on probiotics * CT chest negative for intrathoracic mass/malignancy/embolism * CODE STATUS is full code
[2023-05-21] MEDS: CEFEPIME 2 GM in SODIUM CHLORIDE 0.9% 100 ML IVPB SCH ×2 (00:48→10:15)
[2023-05-21] MEDS: HYDROcodone/APAP 15 ML SOLUTION PEG/G-TUBE PRN ×3 (00:49→12:21)
[2023-05-21] MEDS: HYDROmorphone 1 MG/ML 1 ML SYRINGE IVP PRN ×4 (02:27→14:48)
[2023-05-21] MEDS: MIDODRINE 5 MG TAB PO SCH ×2 (06:36→14:41)
[2023-05-21 08:19] LABS: African American GFR (CKD) >90 (>60 ml/min/1.73 sqM); Anion Gap 4 mmol/L; Blood Urea Nitrogen 17 mg/dL (7-17); Calcium 9.2 mg/dL (8.4-10.2); Carbon Dioxide 30 mmol/L (22-30); Chloride 103 mmol/L (98-107); Glucose 103 mg/dL (74-99); Non-African American GFR(CKD) >90 (>60 ml/min/1.73 sqM); Potassium 4.7 mmol/L (3.5-5.1); Sodium 137 mmol/L (137-145)
[2023-05-21 08:24] LABS: Basophils % (A) 1 %; Eosinophils # (A) 0.7 k/uL (0-0.7); Eosinophils % (A) 11 %; HCT 39.9 % (34.0-46.0); Lymphocytes # (A) 1.8 k/uL (1.0-4.8); Lymphocytes % (A) 27 %; MCH 31.6 pg (25.0-35.0); MCHC 32.5 g/dL (31.0-37.0); MCV 97.1 fL (80.0-100.0); Mean Platelet Volume 10.6; Monocytes # (A) 0.4 k/uL (0-1.0); Monocytes % (A) 6 %; Neutrophils # (A) 3.7 k/uL (1.3-7.7); Neutrophils % (A) 54 %; Platelet Count 183 k/uL (150-450); RBC 4.11 m/uL (3.80-5.40); RDW 14.8 % (11.5-15.5); WBC 6.9 k/uL (3.8-10.6)
[2023-05-21 09:17] VITALS: PULSE 63; TEMP 97.6
[2023-05-21] MEDS: CHOLESTYRAMINE (WITH SUGAR) 4 GM PACKET PEG/G-TUBE SCH (10:00)
[2023-05-21] MEDS: VANCOMYCIN 750 MG in SODIUM CHLORIDE 0.9% 250 ML IVPB SCH (10:15)
[2023-05-21] MEDS: SODIUM CHLORIDE 0.9% 1,000 ML IV SCH (10:16)
[2023-05-21] MEDS: APIXABAN 5 MG TAB PO SCH (10:17)
[2023-05-21] MEDS: LACTOBACILLUS ACIDOPHILUS/PECT 1 EACH CAPSULE PO SCH (10:17)
[2023-05-21] MEDS: ASPIRIN 81 MG PEG/G-TUBE SCH (10:18)
[2023-05-21] MEDS: LEVOTHYROXINE 75 MCG TAB PEG/G-TUBE SCH (10:18)
[2023-05-21] MEDS: LIDOCAINE 5% PATCH TOPICAL SCH (10:19)
[2023-05-21] MEDS: GABAPENTIN 300 MG/6 ML PEG/G-TUBE SCH (11:22)
--- NOTE | 2023-05-21 13:11 | P.PN ---
Subjective Progress Note Date: 05/21/23 I'm seeing this patient in consultation for episodes of pneumonia. The patient has less for right lower lobe pneumonia. The patient is known as taking care of this patient in the past for recurrent right-sided pneumonia and previous MRSA infection of the right lung. This patient is an ex-smoker. She has a very complicated history of a cancer involving the base of her tongue. 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 The patient underwent surgical resection. Following that, the patient had radical neck dissection, muscle flap, and radiation therapy to her neck that causes significant amount of scarring, dry mouth/xerostomia, and limitation her jaw movement and further complications that required a jaw replacement. Bone graft was obtained from her right lower extremity. For now, she has a limited mouth opening, no teeth, extensive multiple scarring in her soft palate, difficulties with swallowing and difficulties in meeting her caloric requirements. The patient and mainly relying on ensure and boost shakes. the patient has been able to maintain her body weight. Despite being very careful, on and off, she has had episodes of aspiration and reviewing her previous chest x-rays from early 2021 and 2020 has revealed infiltration of the right lung base, a typical location for an aspiration pneumonia/aspiration pneumonitis. The patient does not take any solids. No choking episodes. On a separate note, the patient was also diagnosed having subclavian vein thrombosis, probably another complication of her radiation therapy to her neck, and the patient is currently on long-term anticoagulation with Eliquis. No previous history of cardiac disease. No previous history of DVTs.. No history of any interstitial lung disease and the scarring that are seen in the lung apices related to previous radiation therapy. No childhood asthma. She is not using any pulmonary vascular medications or inhalers for now. Noted the patient is also Covid 19 infection July [id number]. She carries history of recurrent pneumonias. She had a pneumonia in January 2023 and she was hospitalized for a total of 11 days and she was discharged on February 2023. She was treated with Augmentin following that and the repeat chest x-ray was showing a right lower lobe consolidation. Further sputum analysis showed MRSA and the patient was treated with doxycycline. She improved consid erably and subsequent chest x-ray shows clearing of the right lung infiltrates. Subsequently, the patient became symptomatic again and she was treated through her primary care physician. Sputum was collected on 04/17/2023 that showed strep and other sputum on 05/09/2023 showed Pseudomonas along with strep group B. On today's evaluation of 05/13/2023, the patient remains on room air oxygen, currently covered with a combination of vancomycin and cefepime. She has a congested cough. Unable to bring up much sputum. D-dimer was at 0.4. The patient has a white cell count of 6 with a hemoglobin 12.6. BUN is at 21 with a creatinine of 0.38 and a sodium level is at 137. She is ambulating. No nausea or vomiting. No diarrhea. She continues to receive enteral feeding for nutritional support. No altered mentation. The patient is seen today 05/14/2023 in follow-up on the regular medical floor. She is currently resting comfortably in bed. Maintain O2 saturations in the 90s on room air. She's been afebrile. Hemodynamically stable. Blood cultures are positive for presumptive MRSA. Sputum culture is positive for MRSA and pseudomonas aeruginosa. White count 5.8. Hemoglobin 13.4. Platelets 246. Sodium 141. Potassium 4.4. Bicarb 31. BUN 16. Creatinine 0.33. She remains on vancomycin and cefepime. He nourished via tube feedings. PEG tube was placed in January 2023. The patient is seen today 05/15/2023 in follow-up on the regular medical floor. She is currently sitting up in a chair. Awake and alert in no acute distress. Maintaining O2 saturations in the 90s on room air. Blood culture positive for MRSA. Sputum culture positive for MRSA and pseudomonas aeruginosa. Currently on vancomycin and cefepime. White count 7.3. Hemoglobin 13.6. Platelets 269. Sodium 143. Potassium 4.5. Bicarb 32. BUN 18. Creatinine 0.4. Glucose 103. Vancomycin trough 10.2. Anticoagulated with Eliquis. Being nourished with TwoCal HN bolus feedings via PEG tube. The patient is seen today 05/16/2023 in follow-up on the regular medical floor. She is sitting in bed. Awake and alert in no acute distress. Denies any worsening shortness of breath, cough or congestion. She is maintaining O2 saturations in the 90s on room air. White count 9.3. Hemoglobin 11.7. Sodium 138. Potassium 5.8. Bicarb 28. BUN 18. Creatinine 0.4. Glucose 111. C- reactive protein 1.10. She is continued on vancomycin and cefepime. Normal saline at 100 ML's per hour. Anticoagulated with Eliquis. Sputum cultures positive for MRSA and pseudomonas aeruginosa, blood cultures positive for MRSA. Follow-up blood cultures are pending. Once cleared a PICC line will be placed for long-term IV antibiotics. She is being nourished with TwoCal HN bolus feedings via her PEG tube. The patient is seen today 05/17/2023 in follow-up on the regular medical floor. She remains awake and alert in no acute distress. Sitting up in bed. Denies any worsening shortness of breath, cough or congestion. Maintaining good O2 saturations in the 90s on room air. Sputum culture was positive for MRSA and pseudomonas aeruginosa, initial blood culture positive for MRSA. Repeat blood cultures from 05/15/2023 are revealing no growth thus far. White count 8.5. Hemoglobin 11.8. Platelets 270. Vancomycin trough 16.4. She remains afebrile. She remains on vancomycin and cefepime. Anticoagulated with Eliquis. The patient is seen today 05/18/2023 in follow-up on the regular medical floor. She is up ambulating in her room. Awake and alert in no acute distress. Good O2 saturations in the 90s on room air. She did have a PICC line placed yesterday. Initial blood cultures were positive for MRSA. Sputum cultures positive for MRSA and pseudomonas aeruginosa. Follow-up blood cultures from 05/15/2023 are revealing no growth thus far. White count 8.6. Hemoglobin 11.3. Platelets 260. Sodium 140. Potassium 4.7. Bicarb 29. BUN 18. Creatinine 0.4. C-reactive protein 0.60. C. difficile screen was negative. He was having some low blood pressures in the 70s systolic early this morning. She received 500 mL bolus. She is on midodrine. She remains on vancomycin and cefepime. Anticoagulated with Eliquis. The patient is seen today 05/19/2023 in follow-up on the regular medical floor. She is sitting up in bed. Awake and alert in no acute distress. Continues to maintain good O2 saturation in the 90s on room air. White count 8.3. Hemoglobin 10.8. Sodium 140. Potassium 4.5. Bicarb 29. BUN 15. Creatinine 0.4. Initial blood cultures were positive for MRSA. Sputum culture was positive for MRSA and pseudomonas. Follow-up blood cultures from 05/15/2023 are revealing no growth. She remains on vancomycin and cefepime per ID service. Anticoagulated with Eliquis. The patient is seen today 05/20/2023 in follow-up on the regular medical floor. She remains awake and alert in no acute distress. Maintaining good O2 saturations in the 90s on room air. Continued on antibiotics in the form of vancomycin and cefepime. She is anticoagulated with Eliquis. Current blood pressure 96/63. Mean arterial pressure 74. White count 7.4. Hemoglobin 10.9. Platelets 236. Sodium 130. Potassium 3.9. Bicarb 31. BUN 16. Creatinine 0.31. Vancomycin trough 21.1. The patient is seen today 05/21/2023 in follow-up on the regular medical floor. She is sitting up in bed. Awake and alert in no acute distress. Denies any worsening shortness of breath, cough or congestion. Maintaining good O2 saturations in the 90s on room air. White count 6.9. Hemoglobin 12.0. Platelets 183. Sodium 137. Potassium 4.7. Bicarb 30. BUN 17. Creatinine 0.31. Glucose 103. She remains on PEG tube feedings with TwoCal HN bolus feedings. Continued on antibiotics in the form of vancomycin and cefepime. Objective - Vital Signs Vital signs: Vital Signs Temp 97.6 F 05/21/23 07:00 Pulse 63 05/21/23 07:00 Resp 17 05/21/23 08:00 BP 87/56 05/21/23 07:00 Pulse Ox 98 05/21/23 07:00 FiO2 Intake & Output 05/20/23 05/21/23 05/21/23 18:59 06:59 18:59 Intake Total 270 Balance 270 Weight 46.4 kg Intake: Oral 270 Other: Voiding Method Toilet Toilet - Exam GENERAL EXAM: Alert, cachectic, pleasant 62-year-old female, in no apparent distress. HEAD: Normocephalic. EYES: Normal reaction of pupils, equal size. NOSE: Clear with pink turbinates. THROAT: No erythema or exudates. NECK: Radiation changes noted to the neck with muscle flap. No masses, no JVD. CHEST: No chest wall deformity. LUNGS: Equal air entry with no crackles, wheeze, rhonchi or dullness. On room air. CVS: S1 and S2 normal with no audible murmur, regular rhythm. ABDOMEN: PEG tube in place. Exit site clean and dry. Normal bowel sounds, no guarding or rigidity. SPINE: No scoliosis or deformity SKIN: No rashes CENTRAL NERVOUS SYSTEM: No focal deficits, tone is normal in all 4 extremities. EXTREMITIES: PICC line in place. There is no peripheral edema. No clubbing, no cyanosis. Peripheral pulses are intact. - Labs CBC & Chem 7: 05/21/23 07:20 05/21/23 07:20 Labs: Abnormal Lab Results - Last 24 Hours (Table) 05/21/23 Range/Units 07:20 Creatinine 0.31 L (0.52-1.04) mg/dL Glucose 103 H (74-99) mg/dL Microbiology - Last 24 Hours (Table) 05/15/23 08:25 Blood Culture - Final Blood 05/15/23 08:34 Blood Culture - Final Blood Assessment and Plan Assessment: The patient has had recurrent respiratory tract infection. The patient was diagnosed having MRSA pneumonia on multiple occasions including this admission with MRSA and Pseudomonas aeruginosa in her sputum and MRSA in her blood cultures. She has a right lower lobe consolidation. Currently on vancomycin and cefepime. Follow-up blood cultures are revealing no growth thus far. PICC line placed. 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 Is also partially affecting her speech Laryngeal papillomatosis -underlying periodic endoscopies with resections at [facility]. Previous history of pulmonary embolism and the patient is currently on anticoagulation with Eliquis Hypothyroidism History of seizure disorder Plan: The patient was seen and evaluated Labs and medications reviewed Antibiotics per ID services Plan is for home with home care This patient was seen independently by the nurse practitioner I have personally seen and examined the patient, performed the documentation and the assessment and plan as written. Number of minutes spent on the visit: 22.
[2023-05-21 15:43] VITALS: BP 110/72; RESP 16
[2023-05-22] MEDS ORDERED: VANCOMYCIN TROUGH DUE 1 EACH MISC MISCELLANE ONE (07:00)
== END 2023-05-21 16:27 | disposition home health service (06) | DRG 177 ==
LOC: EC 13:24 → 6NMEDSUR 16:40 → OBSVTOIN 16:40 → 6NMEDSUR 17:59
PROVIDERS: ADMIT Internal Medicine; ATTEND Internal Medicine
PROC: 02HV33Z Insertion of Infusion Device into Superior Vena Cava, Percutaneous Approach (ICD-10-PCS; principal; 2023-05-17 08:30)
DX: J69.0 Pneumonitis due to inhalation of food and vomit (principal); E43 Unspecified severe protein-calorie malnutrition; I82.B19 Acute embolism and thrombosis of unspecified subclavian vein; J44.0 Chronic obstructive pulmonary disease with (acute) lower respiratory infection; Z68.1 Body mass index [BMI] 19.9 or less, adult; R78.81 Bacteremia; K11.7 Disturbances of salivary secretion; R13.10 Dysphagia, unspecified; G89.4 Chronic pain syndrome; G40.909 Epilepsy, unspecified, not intractable, without status epilepticus; E87.5 Hyperkalemia; E03.9 Hypothyroidism, unspecified; B96.5 Pseudomonas (aeruginosa) (mallei) (pseudomallei) as the cause of diseases classified elsewhere; D14.1 Benign neoplasm of larynx; Z79.01 Long term (current) use of anticoagulants; Z79.2 Long term (current) use of antibiotics; Z79.82 Long term (current) use of aspirin; Z79.899 Other long term (current) drug therapy; Z80.7 Family history of other malignant neoplasms of lymphoid, hematopoietic and related tissues; Z85.810 Personal history of malignant neoplasm of tongue; Z86.14 Personal history of Methicillin resistant Staphylococcus aureus infection; Z86.711 Personal history of pulmonary embolism; Z86.718 Personal history of other venous thrombosis and embolism; Z87.01 Personal history of pneumonia (recurrent); Z90.710 Acquired absence of both cervix and uterus; Z92.21 Personal history of antineoplastic chemotherapy; Z92.3 Personal history of irradiation; Z93.1 Gastrostomy status; Z88.2 Allergy status to sulfonamides; Z88.8 Allergy status to other drugs, medicaments and biological substances; Z87.891 Personal history of nicotine dependence
CPT/HCPCS: 36415; 36573; 71046; 71260; 80048; 80053; 80202; 83605; 83880; 84145; 84484; 85025; 85027; 85379; 85610; 85730; 86140; 87040; 87070; 87077; 87186; 87205; 87324; 87449; 93005; 94760; 96365; 96366; 96375; 99285

== ENCOUNTER → 2023-05-31 | Outpatient (CLI) | payer OTHER ==
--- NOTE | 2023-05-31 16:35 | XR ---
EXAMINATION TYPE: XR chest 2V DATE OF EXAM: 05/31/2023 4:18 PM CLINICAL INDICATION:Female, 62 years old with history of J15.212 PNEUMONIA DUE TO METHICILLIN RESISTA NT STA; [facility] COMPARISON: Chest radiographs from 05/11/2023 TECHNIQUE: XR chest 2V Frontal and lateral views of the chest. FINDINGS: Lungs/Pleura: There is no evidence of pleural effusion, focal consolidation, or pneumothorax. Pulmonary vascularity: Unremarkable. Heart/mediastinum: Cardiomediastinal silhouette is unremarkable. Musculoskeletal: No acute osseous pathology. IMPRESSION: 1. No acute cardiopulmonary disease process. 2. COPD changes.
== END | disposition home or self-care (01) ==
LOC: RADXRMAIN 15:12
PROVIDERS: ATTEND Internal Medicine Geriatric Medicine
DX: J15.212 Pneumonia due to Methicillin resistant Staphylococcus aureus (principal); J44.9 Chronic obstructive pulmonary disease, unspecified
CPT/HCPCS: 71046

== ENCOUNTER → 2023-10-05 | Outpatient (CLI) | payer OTHER ==
--- NOTE | 2023-10-05 17:29 | XR ---
EXAMINATION TYPE: XR chest 2V DATE OF EXAM: 10/05/2023 5:08 PM CLINICAL INDICATION:Female, 63 years old with history of J44.9 CHRONIC OBSTRUCTIVE PULMONARY DISEASE, UNSPE; COMPARISON: Chest radiographs from 05/31/2023 TECHNIQUE: XR chest 2V Frontal and lateral views of the chest. FINDINGS: Lungs/Pleura: There is flattening of the diaphragm with increased lucency of the lungs. No evidence o f pneumothorax, pleural effusion or focal consolidation. Pulmonary vascularity: Unremarkable. Heart/mediastinum: Cardiomediastinal silhouette is unremarkable. Musculoskeletal: No acute osseous pathology. IMPRESSION: 1. No acute cardiopulmonary disease process. 2. COPD changes.
== END | disposition home or self-care (01) ==
LOC: RADXRMAIN 16:51
PROVIDERS: ATTEND Nurse Practitioner Family
DX: J44.9 Chronic obstructive pulmonary disease, unspecified (principal)
CPT/HCPCS: 71046

== ENCOUNTER → 2023-12-26 | Outpatient (CLI) | payer OTHER ==
--- NOTE | 2023-12-26 22:37 | XR ---
EXAMINATION TYPE: XR chest 2V DATE OF EXAM: 12/26/2023 COMPARISON: 10/05/2023 INDICATION: Cough for one TECHNIQUE: Frontal and lateral views of the chest are obtained. FINDINGS: The heart size is normal. The pulmonary vasculature is normal. There is mild infiltrate at the right base posteriorly. Correlate for atelectasis or pneumonia. Stabl e punctate nodules at the right apex.. Some mild wedge deformity within a midthoracic vertebral body is present present previously. IMPRESSION: 1. Mild right lower lobe infiltrate. Correlate for atelectasis and pneumonia.
== END | disposition home or self-care (01) ==
LOC: RADXRMAIN 16:00
PROVIDERS: ATTEND Internal Medicine Geriatric Medicine
DX: R91.8 Other nonspecific abnormal finding of lung field (principal); J69.0 Pneumonitis due to inhalation of food and vomit
CPT/HCPCS: 71046

== ENCOUNTER 2024-08-06 09:23 | Inpatient (IN) | payer MEDICARE, OTHER ==
--- NOTE | 2024-08-06 10:16 | ED ---
SOB HPI - General Chief Complaint: Shortness of Breath Stated Complaint: pneumonia,mrsa, coughing blood Time Seen by Provider: 08/06/24 09:59 Source: patient, RN notes reviewed Mode of arrival: ambulatory Limitations: no limitations - History of Present Illness Initial Comments: Patient is a 63 year old female presenting to the ER with confirmed MRSA pn eumonia sent in by her PCP for IV antibitoics. She states having a cough and new onset hemoptysis that started 1 day ago. She states she also has pain in the area of the left lower lobe which she attributes to forceful coughing, and shortness of breath. She denies chest pain. Patient states she started Doxycycline and prednisone but they have not helped. She states she needs IV antibiotics per her PCP. Patient is not on any current treatment for her prior cancer. Patient states that she has been admitted for IV antibiotics and sent home on IV antibiotics in the form of vancomycin in the past. Patient does admit that she feels very weak, rundown. - Related Data Home Medications Medication Instructions Recorded Confirmed Apixaban [Eliquis] 5 mg PEG/G-TUBE BID 06/23/21 05/11/23 Aspirin 81 mg PEG/G-TUBE DAILY 06/23/21 05/11/23 Gabapentin Oral Soln [Neurontin 900 mg PEG/G-TUBE TID 06/23/21 05/11/23 Oral Soln] Levothyroxine Sodium [Synthroid] 75 mcg PEG/G-TUBE DAILY 06/23/21 05/11/23 Previous Rx's Medication Instructions Recorded Acetaminophen Tab [Tylenol] 650 mg PO Q6HR PRN tab 05/21/23 Cholestyramine (with Sugar) 4 gm PEG/G-TUBE BID@1000,1800 #60 05/21/23 [Questran Packet] packet HYDROcodone/APAP [[place] Elixir 15 ml PEG/G-TUBE Q4H PRN #180 ml 05/21/23 7.5-325Mg/15Ml] Lidocaine 5% Patch [Lidoderm 5% 1 patch TOPICAL DAILY #30 patch 05/21/23 Patch] Midodrine [ProAmatine] 10 mg PO AC-TID #180 tab 05/21/23 Midodrine [ProAmatine] 10 mg PO AC-TID PRN tab 05/21/23 Vancomycin 750 mg IVPB Q12H each 05/21/23 Vancomycin 750 mg IVPB Q12H 14 Days #28 each 05/21/23 Allergies Allergy/AdvReac Type Severity Reaction Status Date / Time Sulfa (Sulfonamide Allergy Throat Verified 05/11/23 16:11 Antibiotics) itching sulfamethoxazole Allergy Throat Verified 05/11/23 16:11 [From Bactrim] itching trimethoprim [From Bactrim] Allergy Throat Verified 05/11/23 16:11 itching Review of Systems ROS Statement: Those systems with pertinent positive or pertinent negative responses have been documented in the HPI. ROS Other: All systems not noted in ROS Statement are negative. 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 ( no saliva as result) WITH CHEMO & RADIATION [place] 2002,aspiration pneumonia History of Any Multi-Drug Resistant Organisms: MRSA Date of last positivie culture/infection: 08/01/24 MDRO Source:: Sputum/Blood Past Surgical History: Adenoidectomy, Appendectomy, Bladder Surgery, Hysterectomy, Tonsillectomy, Tubal Ligation Additional Past Surgical History / Comment(s): NECK DISECTION, BLADDER SUSPENSION, HEEL SPURS, 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 Past Psychological History: No Psychological Hx Reported Smoking Status: Former smoker Past Alcohol Use History: None Reported Past Drug Use History: None Reported - Past Family History Father Family Medical History: Cancer Additional Family Medical History / Comment(s): NON-HODGKINS LYMPHOMA General Exam Limitations: no limitations General appearance: alert, in no apparent distress Head exam: Present: atraumatic, normocephalic, normal inspection ENT exam: Present: mucous membranes moist. Absent: normal exam, normal oropharynx Neck exam: Absent: normal inspection, tenderness, meningismus, lymphadenopathy Respiratory exam: Present: wheezes, rales, rhonchi, chest wall tenderness. Absent: normal lung sounds bilaterally, respiratory distress Cardiovascular Exam: Present: regular rate, normal rhythm, normal heart sounds. Absent: systolic murmur, diastolic murmur, rubs, gallop, clicks GI/Abdominal exam: Present: soft, normal bowel sounds. Absent: distended, tenderness, guarding, rebound, rigid Skin exam: Present: warm, dry, intact, normal color. Absent: rash Course Vital Signs 08/06/24 08/06/24 08/06/24 09:45 10:20 11:32 Temperature 98.1 F Pulse Rate 91 90 90 Respiratory 20 20 20 Rate Blood Pressure 75/60 103/69 91/60 O2 Sat by Pulse 90 L 88 L 94 L Oximetry Medical Decision Making - Medical Decision Making Was pt. sent in by a medical professional or institution (, PA, TELEPHONE STATION INSTALLER, urgent care, hospital, or custodial...) When possible be specific @ -PCP Did you speak to anyone other than the patient for history (EMS, parent, family, police, friend...)? What history was obtained from this source @ -No Did you review nursing and triage notes (agree or disagree)? Why? @ -I reviewed and agree with nursing and triage notes Were old charts reviewed (outside hosp., previous admission, EMS record, old EKG, old radiological studies, urgent care reports/EKG's, custodial records)? Report findings @ -Viewed outpatient sputum culture showing MRSA, Morganella Differential Diagnosis (chest pain, altered mental status, abdominal pain women, abdominal pain men, vaginal bleeding, weakness, fever, dyspnea, syncope, headache, dizziness, GI bleed, back pain, seizure, CVA, palpatations, mental health, musculoskeletal)? @ -Differential Dyspnea: Coronary syndrome, arrhythmia, tamponade, asthma, COPD, pulmonary embolism, pneumonia, pneumothorax, pulmonary effusion, anaphylaxis, diabetic ketoacidosis, flailed chest, pulmonary contusion, diaphragmatic rupture, anemia, neuromuscular, this is not meant to be an all-inclusive list. EKG interpreted by me (3pts min.). @ -As above X-rays interpreted by me (1pt min.). @ -Chest x-ray shows lower lobe pneumonia CT interpreted by me (1pt min.). @ -None done U/S interpreted by me (1pt. min.). @ -None done What testing was considered but not performed or refused? (CT, X-rays, U/S, labs)? Why? @ -None What meds were considered but not given or refused? Why? @ -None Did you discuss the management of the patient with other professionals (professionals i.e. , PA, TELEPHONE STATION INSTALLER, lab, RT, psych nurse, social sciences chair, professor of mechanical engineering, teacher, commissioned security officer, rn field case manager)? Give summary @ -[EMH for admission Was smoking cessation discussed for >3mins.? @ -No Was critical care preformed (if so, how long)? @ -No Were there social determinants of health that impacted care today? How? (Homelessness, low income, unemployed, alcoholism, drug addiction, transportation, low edu. Level, literacy, decrease access to med. care, intermediate, rehab)? @ -No Was there de-escalation of care discussed even if they declined (Discuss DNR or withdrawal of care, Hospice)? DNR status @ -No What co-morbidities impacted this encounter? (DM, HTN, Smoking, COPD, CAD, Cancer, CVA, ARF, Chemo, Hep., AIDS, mental health diagnosis, sleep apnea, morbid obesity)? @ -Cancer Was patient admitted / discharged? Hospital course, mention meds given and route, prescriptions, significant lab abnormalities, going to OR and other pertinent info. @ -[Admitted patient has persistent pneumonia, outpatient resistant organism cultures on sputum. Patient was started on vancomycin, Zosyn patient will have consult to pulmonology, infectious disease patient was given fluid bolus blood pressure has improved. Patient started on maintenance fluids. Undiagnosed new problem with uncertain prognosis? @ -No Drug Therapy requiring intensive monitoring for toxicity (Heparin, Nitro, Insulin, Cardizem)? @ -No Were any procedures done? @ -No Diagnosis/symptom? @ -Pneumonia Acute, or Chronic, or Acute on Chronic? @ -Acute Uncomplicated (without systemic symptoms) or Complicated (systemic symptoms)? @ -Complicated Side effects of treatment? @ -No Exacerbation, Progression, or Severe Exacerbation? @ -No Poses a threat to life or bodily function? How? (Chest pain, [place], DC, pneumonia, PE, COPD, DKA, ARF, appy, cholecystitis, CVA, Diverticulitis, Homicidal, Suicidal, threat to staff... and all critical care pts) @ -Yes pneumonia, respiratory failure - Lab Data Result diagrams: 08/06/24 10:29 08/06/24 10:29 Lab Results 08/06/24 08/06/24 08/06/24 Range/Units 10:29 10: 10:29 WBC 28.0 H (3.8-10.6) k/uL RBC 4.28 (3.80-5.40) m/uL Hgb 12.5 (11.4-16.0) gm/dL Hct 40.0 (34.0-46.0) % MCV 93.5 (80.0-100.0) fL MCH 29.3 (25.0-35.0) pg MCHC 31.3 (31.0-37.0) g/dL RDW 15.6 H (11.5-15.5) % Plt Count 381 (150-450) k/uL MPV 8.9 Neutrophils % 92 % Lymphocytes % 4 % Monocytes % 3 % Eosinophils % 1 % Basophils % 0 % Neutrophils # 25.6 H (1.3-7.7) k/uL Lymphocytes # 1.2 (1.0-4.8) k/uL Monocytes # 0.8 (0-1.0) k/uL Eosinophils # 0.2 (0-0.7) k/uL Basophils # 0.0 (0-0.2) k/uL Manual Slide Review Performed Toxic Granulation Present Hypochromasia Slight PT 10.0 (10.0-12.5) sec INR 0.9 (<1.2) APTT 23.2 (22.0-30.0) sec Sodium 138 (137-145) mmol/L Potassium 4.9 (3.5-5.1) mmol/L Chloride 94 L (98-107) mmol/L Carbon Dioxide 35 H (22-30) mmol/L Anion Gap 9 mmol/L BUN 28 H (7-17) mg/dL Creatinine 0.48 L (0.52-1.04) mg/dL Est GFR (CKD-EPI)AfAm >90 (>60 ml/min/1.73 sqM) Est GFR (CKD-EPI)NonAf >90 (>60 ml/min/1.73 sqM) Glucose 138 H (74-99) mg/dL Plasma Lactic Acid French (0.7-2.0) mmol/L Calcium 9.2 (8.4-10.2) mg/dL Magnesium 2.3 (1.6-2.3) mg/dL Total Bilirubin <0.1 L (0.2-1.3) mg/dL AST 29 (14-36) U/L ALT 24 (4-34) U/L Alkaline Phosphatase 114 (38-126) U/L NT-Pro-B Natriuret Pep 248 pg/mL Total Protein 6.9 (6.3-8.2) g/dL Albumin 3.8 (3.5-5.0) g/dL 08/06/24 Range/Units 10:29 WBC (3.8-10.6) k/uL RBC (3.80-5.40) m/uL Hgb (11.4-16.0) gm/dL Hct (34.0-46.0) % MCV (80.0-100.0) fL MCH (25.0-35.0) pg MCHC (31.0-37.0) g/dL RDW (11.5-15.5) % Plt Count (150-450) k/uL MPV Neutrophils % % Lymphocytes % % Monocytes % % Eosinophils % % Basophils % % Neutrophils # (1.3-7.7) k/uL Lymphocytes # (1.0-4.8) k/uL Monocytes # (0-1.0) k/uL Eosinophils # (0-0.7) k/uL Basophils # (0-0.2) k/uL Manual Slide Review Toxic Granulation Hypochromasia PT (10.0-12.5) sec INR (<1.2) APTT (22.0-30.0) sec Sodium (137-145) mmol/L Potassium (3.5-5.1) mmol/L Chloride (98-107) mmol/L Carbon Dioxide (22-30) mmol/L Anion Gap mmol/L BUN (7-17) mg/dL Creatinine (0.52-1.04) mg/dL Est GFR (CKD-EPI)AfAm (>60 ml/min/1.73 sqM) Est GFR (CKD-EPI)NonAf (>60 ml/min/1.73 sqM) Glucose (74-99) mg/dL Plasma Lactic Acid French 1.6 (0.7-2.0) mmol/L Calcium (8.4-10.2) mg/dL Magnesium (1.6-2.3) mg/dL Total Bilirubin (0.2-1.3) mg/dL AST (14-36) U/L ALT (4-34) U/L Alkaline Phosphatase (38-126) U/L NT-Pro-B Natriuret Pep pg/mL Total Protein (6.3-8.2) g/dL Albumin (3.5-5.0) g/dL - EKG Data -: EKG Interpreted by Me EKG Comments: EKG performed at 12: 17 sinus rhythm rate of 88 MD 142 QRS 88 QT/QTc 342/388 Disposition Clinical Impression: Pneumonia, Failure of outpatient treatment Disposition: ADMITTED IP TO THIS HOSP Condition: Poor Referrals: Yrn Lawton MD [Primary Care Provider] - 1-2 days Time of Disposition: 12:21
[2024-08-06 10:42] LABS: Basophils % (A) 0 %; Eosinophils # (A) 0.2 k/uL (0-0.7); Eosinophils % (A) 1 %; HGB 12.5 gm/dL (11.4-16.0); Hypochromasia Slight; Lymphocytes # (A) 1.2 k/uL (1.0-4.8); Lymphocytes % (A) 4 %; MCH 29.3 pg (25.0-35.0); MCHC 31.3 g/dL (31.0-37.0); MCV 93.5 fL (80.0-100.0); Mean Platelet Volume 8.9; Monocytes # (A) 0.8 k/uL (0-1.0); Monocytes % (A) 3 %; Neutrophils # (A) 25.6 k/uL (1.3-7.7); Neutrophils % (A) 92 %; Platelet Count 381 k/uL (150-450); RBC 4.28 m/uL (3.80-5.40); RDW 15.6 % (11.5-15.5)
[2024-08-06 10:56] LABS: ALT 24 U/L (4-34); AST 29 U/L (14-36); African American GFR (CKD) >90 (>60 ml/min/1.73 sqM); Albumin 3.8 g/dL (3.5-5.0); Alkaline Phosphatase 114 U/L (38-126); Blood Urea Nitrogen 28 mg/dL (7-17); Calcium 9.2 mg/dL (8.4-10.2); Chloride 94 mmol/L (98-107); Glucose 138 mg/dL (74-99); Magnesium 2.3 mg/dL (1.6-2.3); Non-African American GFR(CKD) >90 (>60 ml/min/1.73 sqM); Potassium 4.9 mmol/L (3.5-5.1); Sodium 138 mmol/L (137-145); Total Bilirubin <0.1 mg/dL (0.2-1.3); Total Protein 6.9 g/dL (6.3-8.2)
[2024-08-06 11:03] LABS: Anion Gap 9 mmol/L; INR 0.9 (<1.2); Partial Thromboplastin Time 23.2 sec (22.0-30.0)
[2024-08-06 11:05] LABS: NT-Pro-B-Type Natriuretic Pept 248 pg/mL
[2024-08-06 11:08] LABS: Toxic Granulation Present
--- NOTE | 2024-08-06 11:21 | XR ---
EXAMINATION TYPE: XR chest 2V DATE OF EXAM: 08/06/2024 10:45 AM COMPARISON: 12/26/2023 CLINICAL INDICATION: Female, 63 years old with history of difficulty breathing, TECHNIQUE: XR chest 2V view(s) obtained. FINDINGS: The heart size is normal. The pulmonary vasculature is normal. Small rounded density is persistent right upper lobe. There is a posterior left lower lobe infiltrat e developing better visualized on the lateral projection IMPRESSION: 1. Left lower lobe infiltrate. Correlate for pneumonia. Follow-up is recommended [facility], Workstation: [id number], 08/06/2024 11:19 AM
[2024-08-06] MEDS: SODIUM CHLORIDE 0.9% 1,000 ML IV STA (11:29)
[2024-08-06] MEDS ORDERED: VANCOMYCIN IV PER PHARMACY 1 EACH MISC MISCELLANE PRN ×2 (12:00→22:08)
[2024-08-06 12:04] LABS: Carbon Dioxide 35 mmol/L (22-30)
[2024-08-06] MEDS ORDERED: PNEUMONIA PROTOCOL UTILIZED 1 EACH MISC PO PRN (12:21)
[2024-08-06] MEDS: HYDROmorphone 0.5 MG/0.5 ML SYRINGE IVP STA (12:35)
[2024-08-06] MEDS: PIPERACILLIN-TAZOBACTAM 3.375 GM in SODIUM CHLORIDE 0.9% 100 ML IVPB STA (12:35)
[2024-08-06] MEDS: VANCOMYCIN 750 MG in SODIUM CHLORIDE 0.9% 250 ML IVPB ONE (13:44)
[2024-08-06] MEDS: SODIUM CHLORIDE 0.9% 1,000 ML IV SCH (13:44)
[2024-08-06] MEDS: PIPERACILLIN-TAZOBACTAM 3.375 GM in SODIUM CHLORIDE 0.9% 100 ML IVPB SCH (16:02)
[2024-08-06] MEDS: GABAPENTIN 300 MG CAP PEG/G-TUBE SCH (21:53)
[2024-08-06] MEDS: LEVOTHYROXINE 75 MCG TAB PEG/G-TUBE SCH (21:53)
--- NOTE | 2024-08-06 22:13 | P.CONS ---
History of Present Illness - Reason for Consult Consult date: 08/06/24 Pneumonia Requesting physician: Ari Monge - Chief Complaint Shortness of breath and cough x few days - History of Present Illness Patient is a 63-year-old female with a past medical history significant for COPD PE seizure disorder pneumonia squamous cell cancer of the base of the tongue and neck patient presenting to the hospital for evaluation of increasing shortness of breath and the patient also have a cough which is moderate intensity and the patient has been bringing up some bloodstained sputum patient symptom. Has been getting worse over the last few days patient did have some chills denies high-grade fever and no fever was recorded on presentation to the hospital patient was not tachycardic mildly hypertensive not hypoxic no need for supplemental oxygen patient did have white count of 28,000, creatinine 0.48 electrolytes normal liver enzymes normal patient did have a chest x-ray left lower lobe infiltrate correlate for pneumonia patient was started on vancomycin and Zosyn infectious disease was consulted for further management of antibiotic therapy Review of Systems Positive point and negatives has been mentioned in the HPI, complete review of systems was performed and all other systems are negative 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 ( no saliva as result) WITH CHEMO & RADIATION [place] 2002,aspiration pneumonia History of Any Multi-Drug Resistant Organisms: MRSA Year Discovered:: 08/01/24 MDRO Source:: Sputum/Blood Past Surgical History: Adenoidectomy, Appendectomy, Bladder Surgery, Hysterectomy, Tonsillectomy, Tubal Ligation Additional Past Surgical History / Comment(s): NECK DISECTION, BLADDER SUSPENSION, HEEL SPURS, 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 Past Psychological History: No Psychological Hx Reported Smoking Status: Former smoker Past Alcohol Use History: None Reported Past Drug Use History: None Reported - Past Family History Father Family Medical History: Cancer Additional Family Medical History / Comment(s): NON-HODGKINS LYMPHOMA Medications and Allergies Home Medications Medication Instructions Recorded Confirmed Type Apixaban [Eliquis] 5 mg PEG/G-TUBE BID 06/23/21 08/06/24 History Aspirin 81 mg PEG/G-TUBE DAILY 06/23/21 08/06/24 History Gabapentin Oral Soln [Neurontin 900 mg PEG/G-TUBE TID 06/23/21 08/06/24 History Oral Soln] Levothyroxine Sodium [Synthroid] 75 mcg PEG/G-TUBE HS 06/23/21 08/06/24 History DULoxetine HCL [Cymbalta] 30 mg PEG/G-TUBE DAILY 08/06/24 08/06/24 History oxyCODONE HCL 10 - 15 mg PEG/G-TUBE Q4H 08/06/24 08/06/24 History Amiodarone [Cordarone] 200 mg PO DAILY tab 09/02/24 Rx Chlorhexidine Gluconate [Peridex] 15 ml MUCOUS MEM BID ml 09/02/24 Rx Cholestyramine (with Sugar) 4 gm PO BID@1000,1800 packet 09/02/24 Rx [Questran Packet] Fludrocortisone [Florinef] 0.1 mg PO BID tab 09/02/24 Rx Folic Acid 1 mg PO DAILY@1200 tab 09/02/24 Rx INSULIN ASPART (NovoLOG) [NovoLOG 0 unit SQ Q6HR each 09/02/24 Rx (formulary)] Ipratropium-Albuterol Nebulize 3 ml INHALATION RT-QID each 09/02/24 Rx [Duoneb 0.5 mg-3 mg/3 ml Soln] Metoprolol Tartrate [Lopressor] 12.5 mg PO BID tab 09/02/24 Rx Midodrine [ProAmatine] 5 mg PO TID PRN #4 tablet 09/02/24 Rx Multivitamins, Thera [Multivitamin 1 each PO DAILY@1200 tab 09/02/24 Rx (formulary)] Thiamine [Vitamin B-1] 100 mg PO BID-W/MEALS tab 09/02/24 Rx Zinc Oxide 20% Oint 1 applic TOPICAL BID PRN each 09/02/24 Rx busPIRone HCl [Buspar] 5 mg PO TID tab 09/02/24 Rx Allergies Allergy/AdvReac Type Severity Reaction Status Date / Time Sulfa (Sulfonamide Allergy Throat Verified 08/06/24 12:57 Antibiotics) itching sulfamethoxazole Allergy Throat Verified 08/06/24 12:57 [From Bactrim] itching trimethoprim [From Bactrim] Allergy Throat Verified 08/06/24 12:57 itching Physical Exam Vitals: Vital Signs Temp Pulse Resp BP Pulse Ox 08/06/24 11:32 90 20 91/60 94 L 08/06/24 10:20 90 20 103/69 88 L 08/06/24 09:45 98.1 F 91 20 75/60 90 L Intake and Output 08/05/24 08/06/24 08/06/24 22:59 06:59 14:59 Other: Weight 51.256 kg GENERAL DESCRIPTION: Middle-aged female lying in bed, no distress. No tachypnea or accessory muscle of respiration use. HEENT: Shows Pallor , no scleral icterus. Oral mucous membrane is dry. NECK: Trachea central, no thyromegaly. LUNGS: Unlabored breathing. Coarse breath on the left side, no wheeze HEART: S1, S2, regular rate and rhythm. No loud murmur ABDOMEN: Soft, no tenderness , guarding or rigidity, no organomegaly EXTREMITIES: No edema of feet. SKIN: No rash, no masses palpable. NEUROLOGICAL: The patient is awake, alert, oriented x3, mood and affect normal. Results CBC & Chem 7: 09/02/24 07:43 09/02/24 07:43 Labs: Abnormal Lab Results - Last 24 Hours (Table) 08/06/24 08/06/24 Range/Units 10:29 10:29 WBC 28.0 H (3.8-10.6) k/uL RDW 15.6 H (11.5-15.5) % Neutrophils # 25.6 H (1.3-7.7) k/uL Chloride 94 L (98-107) mmol/L Carbon Dioxide 35 H (22-30) mmol/L BUN 28 H (7-17) mg/dL Creatinine 0.48 L (0.52-1.04) mg/dL Glucose 138 H (74-99) mg/dL Total Bilirubin <0.1 L (0.2-1.3) mg/dL Assessment and Plan (1) MRSA (methicillin resistant Staphylococcus aureus) infection Status: Acute Code(s): A49.02 - METHICILLIN RESIS STAPH INFECTION, UNSP SITE SNOMED Code(s): 962791581 (2) Allergy to sulfa drugs Status: Acute Code(s): Z88.2 - ALLERGY STATUS TO SULFONAMIDES SNOMED Code(s): 67957567 (3) Failure of outpatient treatment Status: Acute Code(s): Z78.9 - OTHER SPECIFIED HEALTH STATUS SNOMED Code(s): 420945915 (4) Pneumonia Status: Acute Code(s): J18.9 - PNEUMONIA, UNSPECIFIED ORGANISM SNOMED Code(s): 154333522 Plan: 1patient presented hospital with increasing shortness of breath also have a cough bringing up some bloodstained sputum chest x-ray with a left lobe infiltrate patient did have elevated white count 28,000 with recent outpatient sputum culture positive for Streptococcus agalactiae MRSA and Morganella likely pathogen 2sulfa allergy that would limit the number of antibiotics safe to use 3-patient to continue with vancomycin pharmacy to dose however switch Zosyn to Rocephin to decrease risk of nephrotoxicity with the discharge antibiotic on the basis of clinical response We will follow on clinical condition and cultures to further adjust medication if needed Thank you for this consultation we will follow the patient along with you Dictation was produced using [employer] ? dictation software. please excuse any grammatical, word or spelling errors. Time with Patient: Greater than 30
[2024-08-07] MEDS ORDERED: VANCOMYCIN 750 MG in SODIUM CHLORIDE 0.9% 250 ML IVPB SCH
[2024-08-07] MEDS: VANCOMYCIN 1,000 MG in SODIUM CHLORIDE 0.9% 250 ML IVPB SCH (00:20)
--- NOTE | 2024-08-07 05:14 | P.CNPUL ---
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 We are consulted for pneumonia. She does follow in the pulmonary office with Dr. Scott for episodes of recurrent aspiration pneumonia; actually had an appointment earlier in July, and was feeling well. Previously admitted back in 2022 with similar scenario and was treated for MRSA pneumonia. Her primary care provider is dali Church out of Dr. Lawton's office. Patient states that earlier in the week she had called her primary care fighter with a combination of symptoms including shortness of breath, cough with blood-tinged sputum, and left-sided pleuritic like chest pain. She states that this often occurs when she gets pneumonia. They did prescribe her doxycycline, and ordered sputum culture to be provided. Symptoms did not improve. Sputum culture obtained on 08/01 ended up coming back positive with MRSA, Morganella, and group B strep. She was told to come to the emergency department to be admitted. Chest x-ray showing a left lower lobe infiltrate. CBC remarkable for leukocytosis with a WBC count of 28. CMP includes a sodium 138, potassium 4.9, chloride 94, serum bicarb 35, BUN 28, creatinine 0.48, glucose 138. LFTs unremarkable. NT proBNP 248. Normal saline infusing at 130 mL/h. She is allergic to sulfa and Bactrim. Patient has been started on combination of antibiotics including Rocephin and vancomycin per infectious disease recommendation. Currently being evaluated in the emergency department. She is alert and oriented and able to answer my questions. She is on 4 L/min nasal cannula and her SpO2 is reading 92%. Non-distressed. Denies home O2 use. She is strict n.p.o. status with PEG/PEJ tube for enteral nutrition and medications. Continues to have intermittent cough with minimal blood-tinged sputum production. Denies megan hemoptysis. Has remained afebrile while inpatient. Current vitals: Temperature 98.6 F, heart rate 85 bpm, blood pressure 82/63 mmHg, nontachypneic, SpO2 92% on 4 L/min nasal cannula. Review of Systems Constitutional: Reports chills, Reports fatigue, Reports fever, Denies poor appetite, Denies weight gain, Denies weight loss Ears, nose, mouth and throat: Reports dysphagia, Denies headache, Denies nasal congestion, Denies nasal discharge, Denies post-nasal drip, Denies sinus pain, Denies sinus pressure, Denies sore throat Cardiovascular: Denies chest pain, Denies lightheadedness, Denies orthopnea, Denies palpitations, Denies paroxysmal nocturnal dyspnea, Denies syncope Respiratory: Reports as per HPI Gastrointestinal: Denies abdominal pain, Denies change in bowel habits, Denies diarrhea, Denies nausea, Denies vomiting Genitourinary: Denies dysuria Musculoskeletal: Denies limitation of motion Integumentary: Denies rash, Denies sores Neurological: Denies seizures, Denies syncope Psychiatric: Denies anxiety, Denies depression Past Medical History Past Medical History: Cancer, COPD, Musculoskeletal Disorder, Pneumonia, Pulmo nary Embolus (PE), Seizure Disorder Additional Past Medical History / Comment(s): positive cologuard, SQUAMOUS 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 ( no saliva as result) WITH CHEMO & RADIATION [place] 2002,aspiration pneumonia History of Any Multi-Drug Resistant Organisms: MRSA Date of last positivie culture/infection: 08/01/24 MDRO Source:: Sputum/Blood Past Surgical History: Adenoidectomy, Appendectomy, Bladder Surgery, Hysterectomy, Tonsillectomy, Tubal Ligation Additional Past Surgical History / Comment(s): NECK DISECTION, BLADDER SUSPENSION, HEEL SPURS, 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 Past Psychological History: No Psychological Hx Reported Smoking Status: Former smoker Past Alcohol Use History: None Reported Past Drug Use History: None Reported - Past Family History Father Family Medical History: Cancer Additional Family Medical History / Comment(s): NON-HODGKINS LYMPHOMA Medications and Allergies Home Medications Medication Instructions Recorded Confirmed Type Apixaban [Eliquis] 5 mg PEG/G-TUBE BID 06/23/21 08/06/24 History Aspirin 81 mg PEG/G-TUBE DAILY 06/23/21 08/06/24 History Gabapentin Oral Soln [Neurontin 900 mg PEG/G-TUBE TID 06/23/21 08/06/24 History Oral Soln] Levothyroxine Sodium [Synthroid] 75 mcg PEG/G-TUBE HS 06/23/21 08/06/24 History Cefuroxime [Ceftin] 250 mg PEG/G-TUBE BID 08/06/24 08/06/24 History DULoxetine HCL [Cymbalta] 30 mg PEG/G-TUBE DAILY 08/06/24 08/06/24 History oxyCODONE HCL 10 - 15 mg PEG/G-TUBE Q4H 08/06/24 08/06/24 History predniSONE See Taper PEG/G-TUBE DIRECTED 08/06/24 08/06/24 History Allergies Allergy/AdvReac Type Severity Reaction Status Date / Time Sulfa (Sulfonamide Allergy Throat Verified 08/06/24 12:57 Antibiotics) itching sulfamethoxazole Allergy Throat Verified 08/06/24 12:57 [From Bactrim] itching trimethoprim [From Bactrim] Allergy Throat Verified 08/06/24 12:57 itching Physical Exam Vitals: Vital Signs Temp Pulse Resp BP Pulse Ox 08/07/24 03:01 85 18 82/63 92 L 08/07/24 02:43 98.6 F 86 18 94 L 08/07/24 02:02 90 18 85/56 93 L 08/07/24 01:10 86 18 82/55 92 L 08/06/24 23:22 85 16 96/65 95 08/06/24 22:21 97 18 85/75 94 L 08/06/24 15:54 86 18 89/54 96 08/06/24 11:32 90 20 91/60 94 L 08/06/24 10:20 90 20 103/69 88 L 08/06/24 09:45 98.1 F 91 20 75/60 90 L Intake and Output 08/06/24 08/06/24 08/07/24 14:59 22:59 06:59 Other: Weight 51.256 kg GENERAL EXAM: Alert, 63-year-old white female, comfortable in no apparent distress. HEAD: Normocephalic and atraumatic EYES: Normal reaction of pupils, equal size. NOSE: Clear with pink turbinates. THROAT: No erythema or exudates. Edentulous, with previous reconstructive surgery. NECK: No masses, no JVD. CHEST: No chest wall deformity. LUNGS: Equal air entry with bilateral rhonchi and wheezing with left lower lobe inspiratory crackles. On 4 L/min nasal cannula. No conversational dyspnea or accessory muscle use.. CVS: S1 and S2 normal with no audible murmur, regular rhythm. No extra heart sounds ABDOMEN: No hepatosplenomegaly, active bowel sounds, no guarding or rigidity. There are two percutaneous feeding tubes. SPINE: No scoliosis or deformity SKIN: No rashes CENTRAL NERVOUS SYSTEM: No focal deficits, tone is normal in all 4 extremities. EXTREMITIES: There is no peripheral edema, clubbing, or cyanosis. Peripheral pulses are intact. Results - Laboratory Findings CBC and BMP: 08/06/24 10:29 08/06/24 10:29 PT/INR, D-dimer PT 10.0 sec (10.0-12.5) 08/06/24 10:29 INR 0.9 (<1.2) 08/06/24 10:29 Abnormal lab findings: Abnormal Labs 08/06/24 08/06/24 10:29 10:29 WBC 28.0 H RDW 15.6 H Neutrophils # 25.6 H Chloride 94 L Carbon Dioxide 35 H BUN 28 H Creatinine 0.48 L Glucose 138 H Total Bilirubin <0.1 L - Diagnostic Findings Chest x-ray: image reviewed Assessment and Plan Assessment: Left lower lobe community-acquired pneumonia, sputum sample obtained 08/01 positive for MRSA, Morganella, and group B strep. Failed outpatient treatment. Chest x-ray shows left lower lobe consolidation. Acute hypoxemic respiratory failure, secondary to above Acute leukocytosis History of recurrent aspiration pneumonia and MRSA pneumonia. 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 Continue maintenance IV fluids Continue Eliquis We will continue to follow I have personally seen and examined the patient, performed the documentation and the assessment and plan as written. Number of minutes spent on the visit:20 This dictation was produced using [employer] dictation software please excuse grammatical errors Time with Patient: Greater than 30
--- NOTE | 2024-08-07 07:17 | P.HPIM ---
History of Present Illness This is a pleasant 63 years old female with past medical history of multiple medical problems. Patient called her PCP office of Dr. Anderson and talked to his nurse practitioner Lynnette from she sees in the office complaining from little shortness of breath for the last 4 to 5 days with some cough and phlegm Associated with left lateral chest pain about 7/10 that is worse with coughing and deep breath. 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 Will BMP and LFTs were unremarkable as well as INR proBNP is 248 Chest x-ray showing left lower lobe infiltrate suspicious for pneumonia Patient was started on IV vancomycin and Zosyn and normal saline with pulmonary and ID team consult Review of Systems Review of systems CONSTITUTIONAL: No fever, no malaise, no fatigue. HEENT: No recent visual problems or hearing problems. Denied any sore throat. CARDIOVASCULAR: No orthopnea, PND, no palpitations, no syncope. PULMONARY: No chest wall tenderness, no hemoptysis. GASTROINTESTINAL: No diarrhea, no nausea, no vomiting, no abdominal pain. Normoactive bowel sounds. NEUROLOGICAL: No headaches, no weakness, no numbness. HEMATOLOGICAL: Denies any bleeding or petechiae. GENITOURINARY: Denies any burning micturition, frequency, or urgency. MUSCULOSKELETAL/RHEUMATOLOGICAL: Denies any joint pain, swelling, or any muscle pain. ENDOCRINE: Denies any polyuria or polydipsia. 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 ( no saliva as result) WITH CHEMO & RADIATION [place] 2002,aspiration pneumonia History of Any Multi-Drug Resistant Organisms: MRSA Date of last positivie culture/infection: 08/01/24 MDRO Source:: Sputum/Blood Past Surgical History: Adenoidectomy, Appendectomy, Bladder Surgery, Hysterectomy, Tonsillectomy, Tubal Ligation Additional Past Surgical History / Comment(s): NECK DISECTION, BLADDER SUSPENSION, HEEL SPURS, 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 Past Psychological History: No Psychological Hx Reported Smoking Status: Former smoker Past Alcohol Use History: None Reported Past Drug Use History: None Reported - Past Family History Father Family Medical History: Cancer Additional Family Medical History / Comment(s): NON-HODGKINS LYMPHOMA Medications and Allergies Home Medications Medication Instructions Recorded Confirmed Type Apixaban [Eliquis] 5 mg PEG/G-TUBE BID 06/23/21 08/06/24 History Aspirin 81 mg PEG/G-TUBE DAILY 06/23/21 08/06/24 History Gabapentin Oral Soln [Neurontin 900 mg PEG/G-TUBE TID 06/23/21 08/06/24 History Oral Soln] Levothyroxine Sodium [Synthroid] 75 mcg PEG/G-TUBE HS 06/23/21 08/06/24 History Cefuroxime [Ceftin] 250 mg PEG/G-TUBE BID 08/06/24 08/06/24 History DULoxetine HCL [Cymbalta] 30 mg PEG/G-TUBE DAILY 08/06/24 08/06/24 History oxyCODONE HCL 10 - 15 mg PEG/G-TUBE Q4H 08/06/24 08/06/24 History predniSONE See Taper PEG/G-TUBE DIRECTED 08/06/24 08/06/24 History Allergies Allergy/AdvReac Type Severity Reaction Status Date / Time Sulfa (Sulfonamide Allergy Throat Verified 08/06/24 12:57 Antibiotics) itching sulfamethoxazole Allergy Throat Verified 08/06/24 12:57 [From Bactrim] itching trimethoprim [From Bactrim] Allergy Throat Verified 08/06/24 12:57 itching Physical Exam Vitals: Vital Signs Temp Pulse Resp BP Pulse Ox 08/06/24 15:54 86 18 89/54 96 08/06/24 11:32 90 20 91/60 94 L 08/06/24 10:20 90 20 103/69 88 L 08/06/24 09:45 98.1 F 91 20 75/60 90 L Intake and Output 08/06/24 08/06/24 08/06/24 06:59 14:59 22:59 Other: Weight 51.256 kg GENERAL: The patient is alert and oriented x3, not in any acute distress. Well developed, well nourished. HEENT: Pupils are round and equally reacting to light. EOMI. No scleral icterus. No conjunctival pallor. Normocephalic, atraumatic. No pharyngeal erythema. No thyromegaly. CARDIOVASCULAR: S1 and S2 present. No murmurs, rubs, or gallops. PULMONARY: Chest is clear to auscultation, no wheezing , no crackles. ABDOMEN: Soft, nontender, nondistended, normoactive bowel sounds. No palpable organomegaly. MUSCULOSKELETAL: No joint swelling or deformity. EXTREMITIES: No cyanosis, clubbing, or pedal edema. NEUROLOGICAL: Gross neurological examination did not reveal any focal deficits. SKIN: No rashes. no petechiae. Results CBC & Chem 7: 08/06/24 10:29 08/06/24 10:29 Labs: Abnormal Lab Results - Last 24 Hours (Table) 08/06/24 08/06/24 Range/Units 10:29 10:29 WBC 28.0 H (3.8-10.6) k/uL RDW 15.6 H (11.5-15.5) % Neutrophils # 25.6 H (1.3-7.7) k/uL Chloride 94 L (98-107) mmol/L Carbon Dioxide 35 H (22-30) mmol/L BUN 28 H (7-17) mg/dL Creatinine 0.48 L (0.52-1.04) mg/dL Glucose 138 H (74-99) mg/dL Total Bilirubin <0.1 L (0.2-1.3) mg/dL Assessment and Plan Assessment: Left lower lobe pneumonia Sepsis secondary to above Acute hypoxic respiratory failure secondary to above Mild calorie protein malnutrition History of mouth cancer status post left show replacement, currently she uses PEG tube for nutrition COPD, not in acute acute issue History of pneumonia not on anticoagulation History of seizure Plan: Continue with antibiotics with IV vancomycin and ceftriaxone as per ID team Infectious disease consult regarding antibiotic management Continue with normal saline, currently on 130 mL/h Continue with oxygen therapy with close monitoring Follow-up culture results Pulmonary team consult Nutrition team consult, for malnutrition and for PEG tube feeding Continue with aggressive hydration and monitor blood pressure Labs and medication were reviewed.. Continue same treatment. Continue with symptomatic treatment. Resume home medication. Monitor labs and vitals. DVT and GI prophylaxis. Further recommendations as per clinical course of the patient DVT prophylaxis: Eliquis GI Prophylaxis: Pepcid PT/OT: Pending Prognosis is guarded
[2024-08-07 07:42] LABS: African American GFR (CKD) >90 (>60 ml/min/1.73 sqM); Non-African American GFR(CKD) >90 (>60 ml/min/1.73 sqM)
[2024-08-07] MEDS: APIXABAN 5 MG TAB PEG/G-TUBE SCH (08:06)
[2024-08-07] MEDS: ASPIRIN 81 MG PEG/G-TUBE SCH (08:06)
[2024-08-07] MEDS: DULoxetine HCL 30 MG CAPSULE.DR PO SCH (08:06)
[2024-08-07] MEDS: FAMOTIDINE 20 MG/2 ML VIAL IV SCH (08:14)
--- NOTE | 2024-08-07 09:31 | P.PN ---
Subjective This is a pleasant 63 years old female with past medical history of multiple medical problems. Patient called her PCP office of Dr. Anderson and talked to his nurse practitioner Lynnette from she sees in the office complaining from little shortness of breath for the last 4 to 5 days with some cough and phlegm Associated with left lateral chest pain about 7/10 that is worse with coughing and deep breath. 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 Will BMP and LFTs were unremarkable as well as INR proBNP is 248 Chest x-ray showing left lower lobe infiltrate suspicious for pneumonia Patient was started on IV vancomycin and Zosyn and normal saline with pulmonary and ID team consult 08/07/2023 Patient sitting up in bed looks similar to yesterday, complaining from some pain in her left side of the chest but it looks controlled and patient is not in distress No significant dyspnea or tachypnea, she can go to the bathroom by herself with no exertional dyspnea However her oxygen requirement increased from 4 L up to 10 L today. Blood pressure is borderline and patient says usually her blood pressure on the low side Repeat chest x-ray showing similar left lower lobe infiltrate. Her legs are swollen we will going to check ultrasound of the leg given risk factors although she does not have much symptoms Patient remains on IV fluids normal saline at 130 and IV antibiotics with IV vancomycin and ceftriaxone Patient already on Cymbalta, she is asking to start her BuSpar but she is not sure about the dose, is going to be resumed [employer] [facility] consult is on for tube feeding Review of systems CONSTITUTIONAL: No fever, no malaise, no fatigue. HEENT: No recent visual problems or hearing problems. Denied any sore throat. CARDIOVASCULAR: No orthopnea, PND, no palpitations, no syncope. HEMATOLOGICAL: Denies any bleeding or petechiae. GENITOURINARY: Denies any burning micturition, frequency, or urgency. MUSCULOSKELETAL/RHEUMATOLOGICAL: Denies any joint pain, swelling, or any muscle pain. ENDOCRINE: Denies any polyuria or polydipsia. Active Medications Generic Name Dose Route Start Last Admin Trade Name Freq PRN Reason Stop Dose Admin Apixaban 5 mg 08/07/24 09:00 08/07/24 08:06 Apixaban 5 Mg Tab PEG/G-TUBE 5 mg BID BLAKE Administration Protocol Aspirin 81 mg 08/07/24 09:00 08/07/24 08:06 Aspirin 81 Mg PEG/G-TUBE 81 mg DAILY BLAKE Administration Duloxetine HCl 30 mg 08/07/24 09:00 08/07/24 08:06 Duloxetine Hcl 30 Mg Capsule.Dr PO 30 mg DAILY BLAKE Administration Famotidine 20 mg 08/07/24 09:00 08/07/24 08:14 Famotidine 20 Mg/2 Ml Vial IV 20 mg Q12HR BLAKE Administration Gabapentin 900 mg 08/06/24 22:00 08/07/24 08:05 Gabapentin 300 Mg Cap PEG/G-TUBE 900 mg TID BLAKE Administration Sodium Chloride 1,000 mls @ 130 mls/hr 08/06/24 12:15 08/07/24 02:42 Saline 0.9% IV 130 mls/hr .[id number] BLAKE Administration Ceftriaxone Sodium 2 gm/ 50 mls @ 100 mls/hr 08/07/24 09:00 08/07/24 08:04 Sodium Chloride IVPB 100 mls/hr Q24HR BLAKE Administration Protocol Vancomycin HCl 1,000 mg/ 250 mls @ 125 mls/hr 08/07/24 00:00 08/07/24 00:20 Sodium Chloride IVPB 125 mls/hr Q12H BLAKE Administration Levothyroxine Sodium 75 mcg 08/06/24 21:00 08/07/24 08:06 Levothyroxine 75 Mcg Tab PEG/G-TUBE 75 mcg DAILY BLAKE Administration Miscellaneous Information 1 each 08/06/24 12:21 Pneumonia Protocol Utilized 1 Each Misc PO ONCE PRN Per Protocol Miscellaneous Information 1 each 08/06/24 22:08 Vancomycin Iv Per Pharmacy 1 Each [facility] [place] DIRECTED PRN Per Protocol Protocol Miscellaneous Information 1 each 08/08/24 11:00 Vancomycin Trough Due 1 Each [facility] [place] 08/08/24 11:01 ONCE ONE Nystatin 500,000 unit 08/07/24 09:00 Nystatin 100,000 Unit/Ml Susp 500,000 Unit/5 Ml Cup PO QID BLAKE Protocol Oxycodone HCl 15 mg 08/06/24 21:00 08/07/24 08:04 Oxycodone Hcl 5 Mg Tab PO 15 mg Q4H BLAKE Administration Objective - Vital Signs Vital signs: Vital Signs Temp 98.1 F 08/07/24 07:47 Pulse 92 08/07/24 07:47 Resp 18 08/07/24 07:47 BP 109/73 08/07/24 07:47 Pulse Ox 91 L 08/07/24 08:58 FiO2 Intake & Output 08/06/24 08/07/24 08/07/24 18:59 06:59 18:59 Weight 51.256 kg - Exam GENERAL: The patient is alert and oriented x3, not in any acute distress. Well developed, well nourished. -HEENT: Pupils are round and equally reacting to light. EOMI. No scleral icterus. No conjunctival pallor. Normocephalic, atraumatic. No pharyngeal erythema. No thyromegaly. Healed scar of the left jaw surgery CARDIOVASCULAR: S1 and S2 present. No murmurs, rubs, or gallops. PULMONARY: Chest is clear to auscultation, no wheezing , no crackles. -ABDOMEN: Soft, nontender, nondistended, normoactive bowel sounds. No palpable organomegaly. PEG tube in place MUSCULOSKELETAL: No joint swelling or deformity. -EXTREMITIES: No cyanosis, clubbing, mild bilateral leg swelling. NEUROLOGICAL: Gross neurological examination did not reveal any focal deficits. SKIN: No rashes. no petechiae. - Labs CBC & Chem 7: 08/06/24 10:29 08/07/24 06:31 Labs: Abnormal Lab Results - Last 24 Hours (Table) 08/06/24 08/06/24 08/07/24 Range/Units 10:29 10:29 06:31 WBC 28.0 H (3.8-10.6) k/uL RDW 15.6 H (11.5-15.5) % Neutrophils # 25.6 H (1.3-7.7) k/uL Chloride 94 L (98-107) mmol/L Carbon Dioxide 35 H (22-30) mmol/L BUN 28 H (7-17) mg/dL Creatinine 0.48 L 0.48 L (0.52-1.04) mg/dL Glucose 138 H (74-99) mg/dL Total Bilirubin <0.1 L (0.2-1.3) mg/dL Assessment and Plan Assessment: Left lower lobe pneumonia Sepsis secondary to above Acute hypoxic respiratory failure secondary to above Mild calorie protein malnutrition History of mouth cancer status post left show replacement, currently she uses PEG tube for nutrition COPD, not in acute acute issue History of pneumonia not on anticoagulation History of seizure Plan: Continue with antibiotics with IV vancomycin and ceftriaxone as per ID team Infectious disease consult regarding antibiotic management Continue with normal saline, currently on 130 mL/h Continue with oxygen therapy with close monitoring Follow-up culture results Pulmonary team consult Nutrition team consult, for malnutrition and for PEG tube feeding Continue with aggressive hydration and monitor blood pressure Labs and medication were reviewed.. Continue same treatment. Continue with symptomatic treatment. Resume home medication. Monitor labs and vitals. DVT and GI prophylaxis. Further recommendations as per clinical course of the patient DVT prophylaxis: Eliquis GI Prophylaxis: Pepcid PT/OT: Pending Prognosis is guarded
--- NOTE | 2024-08-07 10:01 | XR ---
EXAMINATION TYPE: XR chest 1V portable DATE OF EXAM: 08/07/2024 5:10 AM COMPARISON: 08/06/2024 CLINICAL INDICATION: Female, 63 years old with history of pneumonia, TECHNIQUE: XR chest 1V portable view(s) obtained. FINDINGS: The heart size is normal. The pulmonary vasculature is normal. Patient's posterior left lower lobe infiltrate is poorly visualized on this exam. This was better vis ualized on the lateral projection from the previous study. Mild increasing right lower lobe infiltrat e may be present. IMPRESSION: 1. Mild right lower lobe infiltrate. 2. Patient's known posterior pneumonia not well visualized on the frontal projection. Follow-up exams should include lateral view to monitor the posterior pneumonia. [facility], , 08/07/2024 9:59 AM
--- NOTE | 2024-08-07 10:03 | US ---
EXAMINATION TYPE: US venous doppler duplex LE BI DATE OF EXAM: 08/07/2024 9:29 AM COMPARISON: NONE CLINICAL INDICATION: Female, 63 years old with history of leg swelling; Patient denies any signs, sym ptoms, or relevant history , Pain TECHNIQUE: The lower extremity deep venous system is examined utilizing real time linear array sonog yanci with graded compression, color doppler sonography, and spectral doppler. SIDE PERFORMED: Bilateral FINDINGS: VESSELS IMAGED: Common Femoral Vein Deep Femoral Vein Greater Saphenous Vein * Femoral Vein Popliteal Vein Small Saphenous Vein * Proximal Calf Veins (* superficial vessels) Right Leg: Negative for DVT, Color Doppler imaging shows patency of the vessels. Spectral waveforms are within normal limits. Left Leg: Negative for DVT, Color Doppler imaging shows patency of the vessels. Spectral waveforms a re within normal limits. IMPRESSION: 1. Bilateral lower extremity ultrasound negative for deep venous thrombosis [facility], , 08/07/2024 10:00 AM
[2024-08-07] MEDS: NYSTATIN 100,000 UNIT/ML SUSP 500,000 UNIT/5 ML CUP PO SCH (10:27)
--- NOTE | 2024-08-07 15:27 | P.PN ---
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 Patient chest x-ray right lower lobe infiltrate. On today's evaluation that is 08/07/2024,the patient remains to be afebrile, patient is on 10 L high flow nasal cannula supplemental oxygen however denies any shortness of breath no chest pain still having a cough and bring up some bloodstained sputum nausea but no vomiting no abdominal pain no diarrhea. Patient did have a creatinine 0.48 urine for Legionella antigen negative Objective - Vital Signs Vital signs: Vital Signs Temp 98.1 F 08/07/24 07:47 Pulse 92 08/07/24 07:47 Resp 18 08/07/24 07:47 BP 109/73 08/07/24 07:47 Pulse Ox 91 L 08/07/24 08:58 FiO2 Intake & Output 08/06/24 08/07/24 08/07/24 18:59 06:59 18:59 Weight 51.256 kg - Exam GENERAL DESCRIPTION: Middle-age female up in bed in no distress RESPIRATORY SYSTEM: Unlabored breathing , coarse breath sounds at bases HEART: S1 S2 regular rate and rhythm , ABDOMEN: Soft , no tenderness EXTREMITIES: No edema feet - Labs CBC & Chem 7: 08/06/24 10:29 08/07/24 06:31 Labs: Abnormal Lab Results - Last 24 Hours (Table) 08/06/24 08/07/24 Range/Units 10:29 06:31 Chloride 94 L (98-107) mmol/L Carbon Dioxide 35 H (22-30) mmol/L BUN 28 H (7-17) mg/dL Creatinine 0.48 L 0.48 L (0.52-1.04) mg/dL Glucose 138 H (74-99) mg/dL Total Bilirubin <0.1 L (0.2-1.3) mg/dL Assessment and Plan (1) MRSA (methicillin resistant Staphylococcus aureus) infection Current Visit: Yes Status: Acute Code(s): A49.02 - METHICILLIN RESIS STAPH INFECTION, UNSP SITE SNOMED Code(s): 710267290 (2) Allergy to sulfa drugs Current Visit: Yes Status: Acute Code(s): Z88.2 - ALLERGY STATUS TO SULFONAMIDES SNOMED Code(s): 88403666 (3) Failure of outpatient treatment Current Visit: Yes Status: Acute Code(s): Z78.9 - OTHER SPECIFIED HEALTH STATUS SNOMED Code(s): 779283364 (4) Pneumonia Current Visit: Yes Status: Acute Code(s): J18.9 - PNEUMONIA, UNSPECIFIED ORGANISM SNOMED Code(s): 317686478 Plan: 1patient presented hospital with increasing shortness of breath also have a cough bringing up some bloodstained sputum chest x-ray with a left lobe infiltrate patient did have elevated white count 28,000 with recent outpatient sputum culture positive for Streptococcus agalactiae MRSA and Morganella likely pathogen 2sulfa allergy that would limit the number of antibiotics safe to use 3-patient currently being treated with Rocephin and vancomycin pharmacy to dose and will monitor clinical course closely Dictation was produced using Spark dictation software. please excuse any grammatical, word or spelling errors. Time with Patient: Less than 30
[2024-08-07] MEDS: busPIRone HCl 5 MG TAB PO SCH (17:01)
[2024-08-08 11:55] LABS: African American GFR (CKD) >90 (>60 ml/min/1.73 sqM); Non-African American GFR(CKD) >90 (>60 ml/min/1.73 sqM)
[2024-08-08] MEDS: VANCOMYCIN TROUGH DUE 1 EACH MISC MISCELLANE ONE (12:05)
--- NOTE | 2024-08-08 12:13 | P.PN ---
Subjective This is a pleasant 63 years old female with past medical history of multiple medical problems. Patient called her PCP office of Dr. Anderson and talked to his nurse practitioner Lynnette from she sees in the office complaining from little shortness of breath for the last 4 to 5 days with some cough and phlegm Associated with left lateral chest pain about 7/10 that is worse with coughing and deep breath. 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 Will BMP and LFTs were unremarkable as well as INR proBNP is 248 Chest x-ray showing left lower lobe infiltrate suspicious for pneumonia Patient was started on IV vancomycin and Zosyn and normal saline with pulmonary and ID team consult 08/07/2023 Patient sitting up in bed looks similar to yesterday, complaining from some pain in her left side of the chest but it looks controlled and patient is not in distress No significant dyspnea or tachypnea, she can go to the bathroom by herself with no exertional dyspnea However her oxygen requirement increased from 4 L up to 10 L today. Blood pressure is borderline and patient says usually her blood pressure on the low side Repeat chest x-ray showing similar left lower lobe infiltrate. 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 Further workup including sputum culture and blood culture are pending. Blood pressure improved Remains on IV vancomycin and ceftriaxone IV fluid was lower dose 130 down to 75 mL/h Pro- Calcitonin is negative Review of systems CONSTITUTIONAL: No fever, no malaise, no fatigue. HEENT: No recent visual problems or hearing problems. Denied any sore throat. CARDIOVASCULAR: No orthopnea, PND, no palpitations, no syncope HEMATOLOGICAL: Denies any bleeding or petechiae. GENITOURINARY: Denies any burning micturition, frequency, or urgency. MUSCULOSKELETAL/RHEUMATOLOGICAL: Denies any joint pain, swelling, or any muscle pain. ENDOCRINE: Denies any polyuria or polydipsia. Active Medications Generic Name Dose Route Start Last Admin Trade Name Freq PRN Reason Stop Dose Admin Apixaban 5 mg 08/07/24 09:00 08/08/24 09:27 Apixaban 5 Mg Tab PEG/G-TUBE 5 mg BID BLAKE Administration Protocol Aspirin 81 mg 08/07/24 09:00 08/08/24 09:27 Aspirin 81 Mg PEG/G-TUBE 81 mg DAILY BLAKE Administration Buspirone HCl 5 mg 08/07/24 16:00 08/08/24 09:28 Buspirone Hcl 5 Mg Tab PO 5 mg TID BLAKE Administration Duloxetine HCl 30 mg 08/07/24 09:00 08/08/24 09:34 Duloxetine Hcl 30 Mg Capsule.Dr PO 30 mg DAILY BLAKE Administration Famotidine 20 mg 08/07/24 09:00 08/08/24 09:23 Famotidine 20 Mg/2 Ml Vial IV 20 mg Q12HR BLAKE Administration Gabapentin 900 mg 08/06/24 22:00 08/08/24 09:51 Gabapentin 300 Mg Cap PEG/G-TUBE 900 mg TID BLAKE Administration Sodium Chloride 1,000 mls @ 75 mls/hr 08/06/24 12:15 08/08/24 11:03 Saline 0.9% IV 130 mls/hr .[id number] BLAKE Administration Ceftriaxone Sodium 2 gm/ 50 mls @ 100 mls/hr 08/07/24 09:00 08/08/24 09:22 Sodium Chloride IVPB 100 mls/hr Q24HR BLAKE Administration Protocol Vancomycin HCl 1,000 mg/ 250 mls @ 125 mls/hr 08/07/24 00:00 08/08/24 12:04 Sodium Chloride IVPB 125 mls/hr Q12H BLAKE Administration Levothyroxine Sodium 75 mcg 08/06/24 21:00 08/08/24 09:27 Levothyroxine 75 Mcg Tab PEG/G-TUBE 75 mcg DAILY BLAKE Administration Miscellaneous Information 1 each 08/06/24 12:21 Pneumonia Protocol Utilized 1 Each Misc PO ONCE PRN Per Protocol Miscellaneous Information 1 each 08/06/24 22:08 Vancomycin Iv Per Pharmacy 1 Each Misc MISCELLANE DIRECTED PRN Per Protocol Protocol Nystatin 500,000 unit 08/07/24 09:00 08/08/24 09:40 Nystatin 100,000 Unit/Ml Susp 500,000 Unit/5 Ml Cup PO 500,000 unit QID BLAKE Administration Protocol Oxycodone HCl 15 mg 08/06/24 21:00 08/08/24 09:26 Oxycodone Hcl 5 Mg Tab PO 15 mg Q4H BLAKE Administration Objective - Vital Signs Vital signs: Vital Signs Temp 97.1 F L 08/08/24 07:45 Pulse 100 08/08/24 09:43 Resp 18 08/08/24 07:45 BP 114/73 08/08/24 09:43 Pulse Ox 98 08/08/24 09:43 FiO2 Intake & Output 08/07/24 08/08/24 08/08/24 18:59 06:59 18:59 Weight 51.256 kg 55 kg Other: Voiding Method Toilet # Voids 3 - Exam GENERAL: The patient is alert and oriented x3, not in any acute distress. Well developed, well nourished. -HEENT: Pupils are round and equally reacting to light. EOMI. No scleral icterus. No conjunctival pallor. Normocephalic, atraumatic. No pharyngeal erythema. No thyromegaly. Healed scar of the left jaw surgery CARDIOVASCULAR: S1 and S2 present. No murmurs, rubs, or gallops. PULMONARY: Chest is clear to auscultation, no wheezing , no crackles. -ABDOMEN: Soft, nontender, nondistended, normoactive bowel sounds. No palpable organomegaly. PEG tube in place MUSCULOSKELETAL: No joint swelling or deformity. -EXTREMITIES: No cyanosis, clubbing, mild bilateral leg swelling. NEUROLOGICAL: Gross neurological examination did not reveal any focal deficits. SKIN: No rashes. no petechiae. - Labs CBC & Chem 7: 08/06/24 10:29 08/08/24 11:07 Labs: Abnormal Lab Results - Last 24 Hours (Table) 08/08/24 Range/Units 11:07 Creatinine 0.39 L (0.52-1.04) mg/dL Microbiology - Last 24 Hours (Table) 08/06/24 10:29 Blood Culture - Preliminary Blood 08/06/24 15:54 Gram Stain - Preliminary Sputum Assessment and Plan Assessment: Left lower lobe pneumonia Sepsis secondary to above Acute hypoxic respiratory failure secondary to above Mild calorie protein malnutrition History of mouth cancer status post left show replacement, currently she uses PEG tube for nutrition COPD, not in acute acute issue History of pneumonia not on anticoagulation History of seizure Plan: Continue with antibiotics with IV vancomycin and ceftriaxone as per ID team Infectious disease consult regarding antibiotic management Continue with normal saline, currently on 75 mL/h Continue with oxygen therapy with close monitoring Follow-up culture results Pulmonary team consult Nutrition team consult, for malnutrition and for PEG tube feeding Continue with aggressive hydration and monitor blood pressure Labs and medication were reviewed.. Continue same treatment. Continue with symptomatic treatment. Resume home medication. Monitor labs and vitals. DVT and GI prophylaxis. Further recommendations as per clinical course of the patient DVT prophylaxis: Eliquis GI Prophylaxis: Pepcid PT/OT: Pending Prognosis is guarded
--- NOTE | 2024-08-08 15:04 | P.PN ---
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 Patient chest x-ray right lower lobe infiltrate. On today's evaluation that is 08/08/2024, the patient continues to be afebrile, the patient is on 11 L nasal cannula oxygen the patient breathing slightly comfortably, patient denies having any chest pain or worsening cough no vomiting or diarrhea. Patient did have a creatinine 0.39 Vanco trough is low as 9.0 Objective - Vital Signs Vital signs: Vital Signs Temp 97.1 F L 08/08/24 07:45 Pulse 100 08/08/24 09:43 Resp 18 08/08/24 07:45 BP 114/73 08/08/24 09:43 Pulse Ox 98 08/08/24 09:43 FiO2 Intake & Output 08/07/24 08/08/24 08/08/24 18:59 06:59 18:59 Weight 51.256 kg 55 kg Other: Voiding Method Toilet # Voids 3 - Exam GENERAL DESCRIPTION: Middle-age female up in bed in no distress RESPIRATORY SYSTEM: Unlabored breathing , coarse breath sounds at bases HEART: S1 S2 regular rate and rhythm , ABDOMEN: Soft , no tenderness EXTREMITIES: No edema feet - Labs CBC & Chem 7: 08/06/24 10:29 08/08/24 11:07 Labs: Abnormal Lab Results - Last 24 Hours (Table) 08/08/24 Range/Units 11:07 Creatinine 0.39 L (0.52-1.04) mg/dL Microbiology - Last 24 Hours (Table) 08/06/24 10:29 Blood Culture - Preliminary Blood 08/06/24 15:54 Gram Stain - Preliminary Sputum Assessment and Plan (1) MRSA (methicillin resistant Staphylococcus aureus) infection Current Visit: Yes Status: Acute Code(s): A49.02 - METHICILLIN RESIS STAPH INFECTION, UNSP SITE SNOMED Code(s): 333422618 (2) Allergy to sulfa drugs Current Visit: Yes Status: Acute Code(s): Z88.2 - ALLERGY STATUS TO SULFONAMIDES SNOMED Code(s): 54608453 (3) Failure of outpatient treatment Current Visit: Yes Status: Acute Code(s): Z78.9 - OTHER SPECIFIED HEALTH STATUS SNOMED Code(s): 203222898 (4) Pneumonia Current Visit: Yes Status: Acute Code(s): J18.9 - PNEUMONIA, UNSPECIFIED ORGANISM SNOMED Code(s): 230378495 Plan: 1patient presented hospital with increasing shortness of breath also have a cough bringing up some bloodstained sputum chest x-ray with a left lobe infiltrate patient did have elevated white count 28,000 with recent outpatient sputum culture positive for Streptococcus agalactiae MRSA and Morganella likely pathogen 2sulfa allergy that would limit the number of antibiotics safe to use 3-patient currently being treated with Rocephin and vancomycin pharmacy to dose, vancomycin dosing to be adjusted up to keep the trough around 15 Dictation was produced using zhiwo dictation software. please excuse any gramma tical, word or spelling errors. Time with Patient: Less than 30
--- NOTE | 2024-08-08 15:06 | P.PN ---
Subjective Progress Note Date: 08/08/24 Patient is a 63-year-old female with past medical history significant for oral cancer with previous radical neck dissection, followed by radiation, and reconstructive surgery, chronic dysphagia, PEG/PEG tubes, recurrent aspiration pneumonia, DVT/PE on Eliquis, among other things. We are consulted for pn eumonia. She does follow in the pulmonary office with Dr. Scott for episodes of recurrent aspiration pneumonia; actually had an appointment earlier in July, and was feeling well. Previously admitted back in 2022 with similar scenario and was treated for MRSA pneumonia. Her primary care provider is dali Church out of Dr. Lawton's office. Patient states that earlier in the week she had called her primary care fighter with a combination of symptoms including shortness of breath, cough with blood-tinged sputum, and left-sided pleuritic like chest pain. She states that this often occurs when she gets pneumonia. They did prescribe her doxycycline, and ordered sputum culture to be provided. Symptoms did not improve. Sputum culture obtained on 08/01 ended up coming back positive with MRSA, Morganella, and group B strep. She was told to come to the emergency department to be admitted. Chest x-ray showing a left lower lobe infiltrate. CBC remarkable for leukocytosis with a WBC count of 28. CMP includes a sodium 138, potassium 4.9, chloride 94, serum bicarb 35, BUN 28, creatinine 0.48, glucose 138. LFTs unremarkable. NT proBNP 248. Normal saline infusing at 130 mL/h. She is allergic to sulfa and Bactrim. Patient has been started on combination of antibiotics including Rocephin and vancomycin per infectious disease recommendation. Currently being evaluated in the emergency department. She is alert and oriented and able to answer my questions. She is on 4 L/min nasal cannula and her SpO2 is reading 92%. Non-distressed. Denies home O2 use. She is strict n.p.o. status with PEG/PEJ tube for enteral nutrition and medications. Continues to have intermittent cough with minimal blood-tinged sputum production. Denies megan hemoptysis. Has remained afebrile while inpatient. Current vitals: Temperature 98.6 F, heart rate 85 bpm, blood pressure 82/63 mmHg, nontachypneic, SpO2 92% on 4 L/min nasal cannula. The patient is seen today August 08, 2024 in follow-up on the regular medical floor. She is currently resting in bed. Awake and alert in no acute distress. She is maintaining O2 saturations in the 90s on 11 L high flow nasal cannula. Dopplers of the lower extremity were negative for DVT. Her procalcitonin was negative at 0.07. She has been on vancomycin and ceftriaxone. Her sputum culture still reveals MRSA, group B strep and Morganella Morganii. Chest x-ray reveals a mild residual right lower lobe infiltrate. She has been nurse with Jevity at 40 mL/h. She is anticoagulated with Eliquis. Receiving normal saline at 130 mL/h. 10 and 0.39. GFR greater than 90. Vancomycin trough 9.0. Objective - Vital Signs Vital signs: Vital Signs Temp 97.5 F L 08/08/24 14:00 Pulse 67 08/08/24 14:00 Resp 18 08/08/24 14:00 BP 139/76 08/08/24 14:00 Pulse Ox 92 L 08/08/24 14:00 FiO2 Intake & Output 08/07/24 08/08/24 08/08/24 18:59 06:59 18:59 Weight 51.256 kg 55 kg Other: Voiding Method Toilet # Voids 3 - Exam GENERAL EXAM: Alert, 63-year-old female, resting in bed, on 11 L high flow nasal cannula, comfortable in no apparent distress. HEAD: Normocephalic and atraumatic EYES: Normal reaction of pupils, equal size. NOSE: Clear with pink turbinates. THROAT: No erythema or exudates. Edentulous, with previous reconstructive surgery. NECK: No masses, no JVD. CHEST: No chest wall deformity. LUNGS: Equal air entry with bilateral rhonchi and wheezing with left lower lobe inspiratory crackles. CVS: S1 and S2 normal with no audible murmur, regular rhythm. No extra heart sounds ABDOMEN: No hepatosplenomegaly, active bowel sounds, no guarding or rigidity. There are two percutaneous feeding tubes. SPINE: No scoliosis or deformity SKIN: No rashes CENTRAL NERVOUS SYSTEM: No focal deficits, tone is normal in all 4 extremities. EXTREMITIES: There is no peripheral edema, clubbing, or cyanosis. Peripheral pulses are intact. - Labs CBC & Chem 7: 08/06/24 10:29 08/08/24 11:07 Labs: Abnormal Lab Results - Last 24 Hours (Table) 08/08/24 Range/Units 11:07 Creatinine 0.39 L (0.52-1.04) mg/dL Microbiology - Last 24 Hours (Table) 08/06/24 15:54 Gram Stain - Preliminary Sputum Sputum Culture - Preliminary Morganella morganii Strep agalactiae - (group b) Presumptive Staph aureus Rosa albicans 08/06/24 10:29 Blood Culture - Preliminary Blood Assessment and Plan Assessment: Left lower lobe community-acquired pneumonia, sputum sample obtained 08/01 and again on August 06, 2024 positive for MRSA, Morganella, and group B strep. Failed outpatient treatment. Chest x-ray shows left lower lobe consolidation. Acute hypoxemic respiratory failure, secondary to above Acute leukocytosis History of recurrent aspiration pneumonia and MRSA pneumonia. 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 Number of minutes spent on the visit: 10 Dictation was produced using [employer] dictation software. Please excuse any grammatical, word or spelling errors. This patient was seen in coordination with the pulmonary/critical care physician, Dr. Thompson. He did spend greater than 50% of the time evaluating, examining and developing the plan of care. He agrees to the above HPI, physical exam, assessment and plan of care as dictated by the nurse practitioner.
[2024-08-08] MEDS: VANCOMYCIN 1,000 MG in SODIUM CHLORIDE 0.9% 250 ML IVPB SCH (22:39)
[2024-08-08] MEDS: ONDANSETRON 4 MG/2 ML VIAL IVP STA (23:58)
[2024-08-08] MEDS: HYDROmorphone 0.5 MG/0.5 ML SYRINGE IVP STA (23:58)
[2024-08-09 07:25] LABS: Basophils # (A) 0.1 k/uL (0-0.2); Basophils % (A) 0 %; Eosinophils % (A) 0 %; HCT 36.2 % (34.0-46.0); HGB 10.8 gm/dL (11.4-16.0); Hypochromasia Marked; Lymphocytes # (A) 0.6 k/uL (1.0-4.8); Lymphocytes % (A) 2 %; MCH 29.2 pg (25.0-35.0); MCHC 29.8 g/dL (31.0-37.0); MCV 97.9 fL (80.0-100.0); Mean Platelet Volume 8.7; Monocytes # (A) 1.1 k/uL (0-1.0); Monocytes % (A) 3 %; Neutrophils # (A) 35.2 k/uL (1.3-7.7); Neutrophils % (A) 95 %; Platelet Count 362 k/uL (150-450); RDW 14.9 % (11.5-15.5); WBC 37.1 k/uL (3.8-10.6)
[2024-08-09 07:30] LABS: African American GFR (CKD) >90 (>60 ml/min/1.73 sqM); Anion Gap 5 mmol/L; Blood Urea Nitrogen 9 mg/dL (7-17); Calcium 8.6 mg/dL (8.4-10.2); Carbon Dioxide 35 mmol/L (22-30); Chloride 97 mmol/L (98-107); Glucose 134 mg/dL (74-99); Non-African American GFR(CKD) >90 (>60 ml/min/1.73 sqM); Potassium 4.5 mmol/L (3.5-5.1); Sodium 137 mmol/L (137-145)
--- NOTE | 2024-08-09 11:48 | XR ---
EXAMINATION TYPE: XR chest 1V portable DATE OF EXAM: 08/09/2024 CLINICAL HISTORY: Difficulty breathing progress study. TECHNIQUE: Single AP portable upright view of the chest is obtained. COMPARISON: Chest x-ray from 2 days earlier FINDINGS: There are new Bilateral multifocal increased opacities greatest in the lower lungs. Stable mild cardiomegaly. Deformity of left clavicle redemonstrated. IMPRESSION: There are new Bilateral multifocal acute infiltrates and/or edema most prominent in the l eft greater than right lower lungs. Progress study advised. [facility], , 08/09/2024 11:45 AM
[2024-08-09] MEDS: VANCOMYCIN TROUGH DUE 1 EACH MISC MISCELLANE ONE (12:02)
--- NOTE | 2024-08-09 12:30 | P.CON ---
Consult Note - . Consult date: 08/09/24 Assessment/Plan:: Patient is a 63 year old female presenting to the ER with confirmed MRSA pneumonia sent in by her PCP for IV antibitoics. While being hospitalized and treated for her PNA, her jejunostomy tube clogged and is currently not functioning. I attempted to flush it bedside which did not work. She is having some nausea but no vomiting. Review of Systems ROS Statement: Those systems with pertinent positive or pertinent negative responses have been documented in the HPI. ROS Other: All systems not noted in ROS Statement are negative. 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 ( no saliva as result) WITH CHEMO & RADIATION [place] 2002,aspiration pneumonia History of Any Multi-Drug Resistant Organisms: MRSA Date of last positivie culture/infection: 08/01/24 MDRO Source:: Sputum/Blood Past Surgical History: Adenoidectomy, Appendectomy, Bladder Surgery, Hysterectomy, Tonsillectomy, Tubal Ligation Additional Past Surgical History / Comment(s): NECK DISECTION, BLADDER SUSPENSION, HEEL SPURS, 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 Past Psychological History: No Psychological Hx Reported Smoking Status: Former smoker Past Alcohol Use History: None Reported Past Drug Use History: None Reported - Past Family History Father Family Medical History: Cancer Additional Family Medical History / Comment(s): NON-HODGKINS LYMPHOMA General Exam Limitations: no limitations General appearance: alert, in no apparent distress Head exam: Present: atraumatic, normocephalic, normal inspection ENT exam: Present: mucous membranes moist. Absent: normal exam, normal oropharynx Neck exam: Absent: normal inspection, tenderness, meningismus, lymphadenopathy Respiratory exam: Present: wheezes, rales, rhonchi, chest wall tenderness. Absent: normal lung sounds bilaterally, respiratory distress Cardiovascular Exam: Present: regular rate, normal rhythm, normal heart sounds. Absent: systolic murmur, diastolic murmur, rubs, gallop, clicks GI/Abdominal exam: Present: soft, normal bowel sounds. Absent: distended, tenderness, guarding, rebound, rigid Skin exam: Present: warm, dry, intact, normal color. Absent: rash 63 year old female with clogged jejunostomy tube and nausea -Attempted to flush jejunostomy tube which did not work -CT-AP ordered to make sure no distal obstruction of jejunostomy tube -If not distal obstruction, will attempt to exchange jejunostomy tube bedside Darrius Wick DO [facility] [phone]
--- NOTE | 2024-08-09 13:41 | P.PN ---
Subjective Progress Note Date: 08/09/24 Patient is a 63-year-old female with past medical history significant for oral cancer with previous radical neck dissection, followed by radiation, and reconstructive surgery, chronic dysphagia, PEG/PEG tubes, recurrent aspiration pneumonia, DVT/PE on Eliquis, among other things. We are consulted for pn eumonia. She does follow in the pulmonary office with Dr. Scott for episodes of recurrent aspiration pneumonia; actually had an appointment earlier in July, and was feeling well. Previously admitted back in 2022 with similar scenario and was treated for MRSA pneumonia. Her primary care provider is dali Church out of Dr. Lawton's office. Patient states that earlier in the week she had called her primary care fighter with a combination of symptoms including shortness of breath, cough with blood-tinged sputum, and left-sided pleuritic like chest pain. She states that this often occurs when she gets pneumonia. They did prescribe her doxycycline, and ordered sputum culture to be provided. Symptoms did not improve. Sputum culture obtained on 08/01 ended up coming back positive with MRSA, Morganella, and group B strep. She was told to come to the emergency department to be admitted. Chest x-ray showing a left lower lobe infiltrate. CBC remarkable for leukocytosis with a WBC count of 28. CMP includes a sodium 138, potassium 4.9, chloride 94, serum bicarb 35, BUN 28, creatinine 0.48, glucose 138. LFTs unremarkable. NT proBNP 248. Normal saline infusing at 130 mL/h. She is allergic to sulfa and Bactrim. Patient has been started on combination of antibiotics including Rocephin and vancomycin per infectious disease recommendation. Currently being evaluated in the emergency department. She is alert and oriented and able to answer my questions. She is on 4 L/min nasal cannula and her SpO2 is reading 92%. Non-distressed. Denies home O2 use. She is strict n.p.o. status with PEG/PEJ tube for enteral nutrition and medications. Continues to have intermittent cough with minimal blood-tinged sputum production. Denies megan hemoptysis. Has remained afebrile while inpatient. Current vitals: Temperature 98.6 F, heart rate 85 bpm, blood pressure 82/63 mmHg, nontachypneic, SpO2 92% on 4 L/min nasal cannula. The patient is seen today August 08, 2024 in follow-up on the regular medical floor. She is currently resting in bed. Awake and alert in no acute distress. She is maintaining O2 saturations in the 90s on 11 L high flow nasal cannula. Dopplers of the lower extremity were negative for DVT. Her procalcitonin was negative at 0.07. She has been on vancomycin and ceftriaxone. Her sputum culture still reveals MRSA, group B strep and Morganella Morganii. Chest x-ray reveals a mild residual right lower lobe infiltrate. She has been nurse with Jevity at 40 mL/h. She is anticoagulated with Eliquis. Receiving normal saline at 130 mL/h. 10 and 0.39. GFR greater than 90. Vancomycin trough 9.0. The patient is seen today August 09, 2024 in follow-up on the regular medical floor. She is currently sitting up in bed. Awake and alert in no acute distress. She is maintaining O2 saturation in the 90s on 7 L high flow nasal cannula. She has normal saline at 75 mL/h. She is being treated for her MRSA, Morganella and strep B infections. Continued on vancomycin and ceftriaxone. Continued on bronchodilators. Anticoagulated with Eliquis. White count 37.1. Hemoglobin 10.8. Platelets 362. Sodium 137. Potassium 4.5. Bicarb 35. BUN 9. Creatinine 0.42. Glucose 134. Continues to be nourished with Jevity at 40 mL/h. Objective - Vital Signs Vital signs: Vital Signs Temp 98.7 F 08/09/24 07:50 Pulse 97 08/09/24 07:50 Resp 18 08/09/24 07:50 BP 94/58 08/09/24 07:50 Pulse Ox 100 08/09/24 07:50 FiO2 Intake & Output 08/08/24 08/09/24 08/09/24 18:59 06:59 18:59 Weight 55 kg 57 kg Other: Voiding Method Bedside Commode # Voids 3 1 # Bowel Movements 1 - Exam GENERAL EXAM: Alert, 63-year-old female, on 7 L high flow nasal cannula, in no apparent distress. HEAD: Normocephalic and atraumatic EYES: Normal reaction of pupils, equal size. NOSE: Clear with pink turbinates. THROAT: No erythema or exudates. Edentulous, with previous reconstructive surgery. NECK: No masses, no JVD. CHEST: No chest wall deformity. LUNGS: Equal air entry with bilateral rhonchi and wheezing with left lower lobe inspiratory crackles. CVS: S1 and S2 normal with no audible murmur, regular rhythm. No extra heart sounds ABDOMEN: No hepatosplenomegaly, active bowel sounds, no guarding or rigidity. There are two percutaneous feeding tubes. SPINE: No scoliosis or deformity SKIN: No rashes CENTRAL NERVOUS SYSTEM: No focal deficits, tone is normal in all 4 extremities. EXTREMITIES: There is no peripheral edema, clubbing, or cyanosis. Peripheral pulses are intact. - Labs CBC & Chem 7: 08/09/24 07:03 08/09/24 07:03 Labs: Abnormal Lab Results - Last 24 Hours (Table) 08/09/24 08/09/24 Range/Units 07:03 07:03 WBC 37.1 H (3.8-10.6) k/uL RBC 3.70 L (3.80-5.40) m/uL Hgb 10.8 L (11.4-16.0) gm/dL MCHC 29.8 L (31.0-37.0) g/dL Neutrophils # 35.2 H (1.3-7.7) k/uL Lymphocytes # 0.6 L (1.0-4.8) k/uL Monocytes # 1.1 H (0-1.0) k/uL Chloride 97 L (98-107) mmol/L Carbon Dioxide 35 H (22-30) mmol/L Creatinine 0.42 L (0.52-1.04) mg/dL Glucose 134 H (74-99) mg/dL Microbiology - Last 24 Hours (Table) 08/06/24 15:54 Gram Stain - Final Sputum Sputum Culture - Final Morganella morganii Strep agalactiae - (group b) Methicillin resist S. aureus Rosa albicans 08/06/24 10:29 Blood Culture - Preliminary Blood Assessment and Plan Assessment: Left lower lobe community-acquired pneumonia, sputum sample obtained 08/01 and again on August 06, 2024 positive for MRSA, Morganella, and group B strep. Failed outpatient treatment. Chest x-ray shows left lower lobe consolidation. Remains on vancomycin and ceftriaxone Acute hypoxemic respiratory failure, secondary to above Acute leukocytosis History of recurrent aspiration pneumonia and MRSA pneumonia. 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 Number of minutes spent on the visit: 10 Dictation was produced using [employer] dictation software. Please excuse any grammatical, word or spelling errors. This patient was seen in coordination with the pulmonary/critical care phy richard, Dr. Thompson. He did spend greater than 50% of the time evaluating, examining and developing the plan of care. He agrees to the above HPI, physical exam, assessment and plan of care as dictated by the nurse practitioner.
--- NOTE | 2024-08-09 13:51 | CT ---
EXAMINATION TYPE: CT abdomen pelvis w con DATE OF EXAM: 08/09/2024 HISTORY: J-TUBE NOT FUNCTIONING CT DLP: 611.1mGycm Automated Exposure Control for Dose Reduction was Utilized. CONTRAST: CT scan of the abdomen and pelvis is performed with IV Contrast, patient injected with 100 mL of Isov ue 300. COMPARISON: CT June 25, 2017 FINDINGS: LUNG BASES: There is small right pleural effusion. There is associated posterior right lung consolida tion/atelectasis. There is more prominent posterior left basilar consolidation with air bronchograms. Trace left basilar pleural effusion. Patchy multifocal groundglass opacities are present particularl y in the right middle lobe. Aspiration pneumonia is in the differential. LIVER/GB: Hepatomegaly is now seen. Liver is heterogeneously hypodense. Gallbladder has distended mar gins. No new biliary dilatation. PANCREAS: Mild to moderate generalized atrophy. SPLEEN: No significant abnormality is seen. ADRENALS: No significant abnormality is seen. KIDNEYS: There is symmetric cortical medullary uptake and excretion without hydronephrosis. BOWEL: Percutaneous gastrostomy tube is thought satisfactory in position. Percutaneous jejunostomy tu be appears to extend along left-sided jejunal bowel loops into the pelvis. No abnormal small or large bowel dilatation. Slightly low-lying cecum with mild to moderate fecal prominence. UTERUS/ADNEXA: Uterus remains surgically absent. Scattered tiny bilateral pelvic phleboliths are rede monstrated. LYMPH NODES: No greater than 1cm abdominal or pelvic lymph nodes are appreciated. OSSEOUS STRUCTURES: Slight grade 1 anterolisthesis L4 on L5. Multilevel facet arthropathy in the lowe r lumbar spine. OTHER: Mild to moderate diffuse subcutaneous edema. IMPRESSION: 1. Percutaneous jejunostomy tube appears grossly satisfactory on CT. No bowel obstruction is seen. 2. Attention to lung bases as detailed above. [facility], , 08/09/2024 1:49 PM
--- NOTE | 2024-08-09 15:26 | P.PN ---
Subjective Progress Note Date: 08/09/24 This is a pleasant 63 years old female with past medical history of multiple medical problems. Patient called her PCP office of Dr. Anderson and talked to his nurse practitioner Lynnette from she sees in the office complaining from little shortness of breath for the last 4 to 5 days with some cough and phlegm Associated with left lateral chest pain about 7/10 that is worse with coughing and deep breath. Her nurse practitioner Lynnette asked her to get sputum sample and resulted back as MRSA so she got a call from the office to head to the emergency room Currently she is endorsing the same symptoms as above However she denies any specific GI/ symptoms no headache dizziness weakness or numbness She quit smoking years ago with no alcohol or illicit drugs as well She is not on oxygen at home She has a known history of mouth cancer s/p left-sided jaw replacement She does not eat but uses a PEG tube for feeding 2 weeks ago she saw her oncologist and Dr. 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 Will BMP and LFTs were unremarkable as well as INR proBNP is 248 Chest x-ray showing left lower lobe infiltrate suspicious for pneumonia Patient was started on IV vancomycin and Zosyn and normal saline with pulmonary and ID team consult 08/07/2023 Patient sitting up in bed looks similar to yesterday, complaining from some pain in her left side of the chest but it looks controlled and patient is not in distress No significant dyspnea or tachypnea, she can go to the bathroom by herself with no exertional dyspnea However her oxygen requirement increased from 4 L up to 10 L today. Blood pressure is borderline and patient says usually her blood pressure on the low side Repeat chest x-ray showing similar left lower lobe infiltrate. Her legs are swollen we will going to check ultrasound of the leg given risk factors although she does not have much symptoms Patient remains on IV fluids normal saline at 130 and IV antibiotics with IV vancomycin and ceftriaxone Patient already on Cymbalta, she is asking to start her BuSpar but she is not sure about the dose, is going to be resumed Rn Allergy consult is on for tube feeding 08/08 Patient is mildly tachypneic, not using accessory muscles of breathing, her oxygen requirement increased since yesterday to 10 to 11 L/min She has bilateral leg swelling, mild ultrasound of the leg is negative for DVT. Further workup including sputum culture and blood culture are pending. Blood pressure improved Remains on IV vancomycin and ceftriaxone IV fluid was lower dose 130 down to 75 mL/h Pro- Calcitonin is negative 08/09. Patient seen and examined. Currently on 11 L of oxygen. Patient had her jejunostomy tube not functioning, surgery consulted, they order CT abdominal p jasmina REVIEW OF SYSTEMS: CONSTITUTIONAL: No fever, no malaise,. CARDIOVASCULAR: No chest pain, no palpitations, no syncope. PULMONARY: No shortness of breath, no cough, GASTROINTESTINAL: No diarrhea, no nausea, no vomiting, no abdominal pain. NEUROLOGICAL: No headaches, no weakness, PHYSICAL EXAMINATION: GENERAL: The patient is alert, chronically ill looking HEENT: Pupils are round and equally reacting to light. EOMI. No scleral icterus. No conjunctival pallor. Normocephalic, atraumatic. No pharyngeal erythema. No thyromegaly. CARDIOVASCULAR: S1 and S2 present. No murmurs, rubs, or gallops. PULMONARY coarse breath sounds bilaterally, bilateral rhonchi audible ABDOMEN: Soft, nontender, nondistended, normoactive bowel sounds. No palpable organomegaly. Jejunostomy tube seen MUSCULOSKELETAL: No joint swelling or deformity. EXTREMITIES: No cyanosis, clubbing, or pedal edema. NEUROLOGICAL: Gross neurological examination did not reveal any focal deficits. SKIN: No rashes. Assessment and plan Left lower lobe pneumonia Sepsis secondary to above Acute hypoxic respiratory failure secondary to above Mild calorie protein malnutrition History of mouth cancer , currently she uses PEG tube for nutrition COPD, not in acute acute issue History of pneumonia not on anticoagulation History of seizure Monitor vital signs Monitor CBC Monitor CMP Continue telemetry monitoring Encourage use of incentive spirometer Follow-up on blood cultures Continue breathing treatment Continue vancomycin, Rocephin Continue breathing treatments ID following Pulmonology following surgery consulted, CT abdominal pelvis ordered to check jejunostomy tube positioning Labs and medication were reviewed.. Continue same treatment. Continue with symptomatic treatment. Resume home medication. Monitor labs and vitals. DVT and GI prophylaxis. Further recommendations as per clinical course of the patient Dictation was produced using [email or web address] dictation software. please excuse any grammatical, word or spelling errors. Objective - Vital Signs Vital signs: Vital Signs Temp 98.7 F 08/09/24 07:50 Pulse 97 08/09/24 07:50 Resp 18 08/09/24 07:50 BP 94/58 08/09/24 07:50 Pulse Ox 100 08/09/24 07:50 FiO2 Intake & Output 08/08/24 08/09/24 08/09/24 18:59 06:59 18:59 Weight 55 kg 57 kg Other: Voiding Method Bedside Commode # Voids 3 1 # Bowel Movements 1 - Labs CBC & Chem 7: 08/09/24 07:03 08/09/24 07:03 Labs: Abnormal Lab Results - Last 24 Hours (Table) 08/08/24 08/09/24 08/09/24 Range/Units 11:07 07:03 07:03 WBC 37.1 H (3.8-10.6) k/uL RBC 3.70 L (3.80-5.40) m/uL Hgb 10.8 L (11.4-16.0) gm/dL MCHC 29.8 L (31.0-37.0) g/dL Neutrophils # 35.2 H (1.3-7.7) k/uL Lymphocytes # 0.6 L (1.0-4.8) k/uL Monocytes # 1.1 H (0-1.0) k/uL Chloride 97 L (98-107) mmol/L Carbon Dioxide 35 H (22-30) mmol/L Creatinine 0.39 L 0.42 L (0.52-1.04) mg/dL Glucose 134 H (74-99) mg/dL Microbiology - Last 24 Hours (Table) 08/06/24 15:54 Gram Stain - Final Sputum Sputum Culture - Final Morganella morganii Strep agalactiae - (group b) Methicillin resist S. aureus Rosa albicans 08/06/24 10:29 Blood Culture - Preliminary Blood
[2024-08-09] MEDS: IPRATROPIUM-ALBUTEROL 3 ML NEB INHALATION SCH (16:20)
[2024-08-09] MEDS: ANIDULAFUNGIN 200 MG in SODIUM CHLORIDE 0.9% 200 ML IVPB ONE (17:40)
--- NOTE | 2024-08-09 22:25 | P.PN ---
Subjective Progress Note Date: 08/09/24 Principal diagnosis: Reason for follow-up is pneumonia Patient is a 63-year-old female with a past medical history significant for COPD PE seizure disorder pneumonia squamous cell cancer of the base of the tongue and neck patient presenting to the hospital for evaluation of increasing shortness of breath and the patient also have a cough with recent outpatient sputum culture positive for MRSA and Morganella. Patient chest x-ray right lower lobe infiltrate. On today's evaluation that is 08/09/2024, patient did not have any fever and denies any chills, patient is breathing comfortably however still requiring 8 L high flow nasal oxygen, patient with no chest pain and cough is decreased in intensity no more hemoptysis no nausea no vomiting patient apparently did have issues with her PEG tube requiring a CT. Patient white count is up to 37.1 creatinine 0.42 Vanco trough was low yesterday 9 is up to 15.2 today sputum is growing Morganella strep MRSA and Rosa abdominal pelvis CT did not show any acute intra-abdominal pathology Objective - Vital Signs Vital signs: Vital Signs Temp 98.7 F 08/09/24 07:50 Pulse 97 08/09/24 07:50 Resp 18 08/09/24 07:50 BP 94/58 08/09/24 07:50 Pulse Ox 100 08/09/24 07:50 FiO2 Intake & Output 08/08/24 08/09/24 08/09/24 18:59 06:59 18:59 Weight 55 kg 57 kg Other: Voiding Method Bedside Commode # Voids 3 1 # Bowel Movements 1 - Exam GENERAL DESCRIPTION: Middle-age female up in bed in no distress RESPIRATORY SYSTEM: Unlabored breathing , coarse breath sounds at bases HEART: S1 S2 regular rate and rhythm , ABDOMEN: Soft , no tenderness EXTREMITIES: No edema feet - Labs CBC & Chem 7: 08/09/24 07:03 08/09/24 07:03 Labs: Abnormal Lab Results - Last 24 Hours (Table) 08/09/24 08/09/24 Range/Units 07:03 07:03 WBC 37.1 H (3.8-10.6) k/uL RBC 3.70 L (3.80-5.40) m/uL Hgb 10.8 L (11.4-16.0) gm/dL MCHC 29.8 L (31.0-37.0) g/dL Neutrophils # 35.2 H (1.3-7.7) k/uL Lymphocytes # 0.6 L (1.0-4.8) k/uL Monocytes # 1.1 H (0-1.0) k/uL Chloride 97 L (98-107) mmol/L Carbon Dioxide 35 H (22-30) mmol/L Creatinine 0.42 L (0.52-1.04) mg/dL Glucose 134 H (74-99) mg/dL Microbiology - Last 24 Hours (Table) 08/06/24 15:54 Gram Stain - Final Sputum Sputum Culture - Final Morganella morganii Strep agalactiae - (group b) Methicillin resist S. aureus Rosa albicans 08/06/24 10:29 Blood Culture - Preliminary Blood Assessment and Plan (1) MRSA (methicillin resistant Staphylococcus aureus) infection Current Visit: Yes Status: Acute Code(s): A49.02 - METHICILLIN RESIS STAPH INFECTION, UNSP SITE SNOMED Code(s): 654506575 (2) Allergy to sulfa drugs Current Visit: Yes Status: Acute Code(s): Z88.2 - ALLERGY STATUS TO SULFONAMIDES SNOMED Code(s): 55117766 (3) Failure of outpatient treatment Current Visit: Yes Status: Acute Code(s): Z78.9 - OTHER SPECIFIED HEALTH STATUS SNOMED Code(s): 094158934 (4) Pneumonia Current Visit: Yes Status: Acute Code(s): J18.9 - PNEUMONIA, UNSPECIFIED O RGANISM SNOMED Code(s): 236400996 Plan: 1patient presented hospital with increasing shortness of breath also have a cough bringing up some bloodstained sputum chest x-ray with a left lobe infiltrate patient did have elevated white count 28,000 with recent outpatient sputum culture positive for Streptococcus agalactiae MRSA and Morganella likely pathogen 2sulfa allergy that would limit the number of antibiotics safe to use 3-patient currently being treated with Rocephin and vancomycin pharmacy to dose, vancomycin dose has been adjusted up in the trough is therapeutic patient did have worsening of the white count could be related to subtherapeutic vancomycin versus oropharyngeal candidiasis and the sputum issues Rosa as I am not able to use Diflucan because of drug interaction we will add Eraxis and monitor white count closely patient family at the bedside daughter has multiple question all her x-rays CT reports were discussed with her in the presence of the patient nurse and all question concern were answered in layman term Dictation was produced using [employer] software. please excuse any grammatical, word or spelling errors. Time with Patient: Greater than 30
[2024-08-10 02:50] LABS: Glucose,Whole Blood 100 mg/dL (70-110)
[2024-08-10] MEDS: DILTIAZEM 125 MG in SODIUM CHLORIDE 0.9% 100 ML IV SCH (03:01)
[2024-08-10] MEDS: DILTIAZEM DRIP BOLUS FROM BAG 1 MG SOLN IV ONE (03:01)
[2024-08-10] MEDS: SODIUM CHLORIDE 0.9% 500 ML 500 ML IV ONE ×2 (03:47)
[2024-08-10 05:13] LABS: Basophils % (A) 0 %; Eosinophils % (A) 0 %; HGB 9.7 gm/dL (11.4-16.0); Hypochromasia Marked; Lymphocytes # (A) 0.8 k/uL (1.0-4.8); Lymphocytes % (A) 5 %; MCH 29.9 pg (25.0-35.0); MCHC 31.2 g/dL (31.0-37.0); MCV 95.9 fL (80.0-100.0); Mean Platelet Volume 9.1; Monocytes # (A) 0.9 k/uL (0-1.0); Monocytes % (A) 6 %; Neutrophils # (A) 14.8 k/uL (1.3-7.7); Neutrophils % (A) 88 %; Platelet Count 319 k/uL (150-450); RBC 3.23 m/uL (3.80-5.40); RDW 14.8 % (11.5-15.5); WBC 16.7 k/uL (3.8-10.6)
[2024-08-10 05:22] LABS: ALT 47 U/L (4-34); AST 34 U/L (14-36); African American GFR (CKD) >90 (>60 ml/min/1.73 sqM); Albumin 2.4 g/dL (3.5-5.0); Alkaline Phosphatase 403 U/L (38-126); Anion Gap 7 mmol/L; Blood Urea Nitrogen 12 mg/dL (7-17); Calcium 8.3 mg/dL (8.4-10.2); Carbon Dioxide 30 mmol/L (22-30); Chloride 97 mmol/L (98-107); Glucose 92 mg/dL (74-99); Non-African American GFR(CKD) >90 (>60 ml/min/1.73 sqM); Potassium 4.1 mmol/L (3.5-5.1); Sodium 134 mmol/L (137-145); Total Bilirubin 0.4 mg/dL (0.2-1.3); Total Protein 5.1 g/dL (6.3-8.2)
--- NOTE | 2024-08-10 07:31 | XR ---
EXAMINATION TYPE: XR chest 1V portable DATE OF EXAM: 08/10/2024 CLINICAL HISTORY: Increased oxygen demands placed on airvo. TECHNIQUE: Single AP portable upright view of the chest is obtained. COMPARISON: Chest x-ray from one day earlier and older studies. FINDINGS: There are persistent bibasilar increased opacities on background chronic parenchymal golden es. Stable cardiomegaly. Deformity of left clavicle redemonstrated. Clip projecting over the upper t rachea again seen. IMPRESSION: There are persistent bilateral lower lung acute infiltrates and/or edema with small to ti ny bilateral pleural effusions. [facility], , 08/10/2024 7:29 AM
[2024-08-10] MEDS: FUROSEMIDE 10 MG/ML 4 ML VIAL IV STA (09:30)
--- NOTE | 2024-08-10 09:37 | P.CRDCN ---
History of Present Illness Consult date: 08/10/24 History of present illness: History of Present Illness: The patient is a 63-year-old female, status post radical neck dissection for oral cancer and reconstructive surgery, history of PEG tube because of recurrent aspiration who was admitted to the hospital because of progressive dyspnea cough and was noted to have recurrent aspiration pneumonia. Yesterday she had an episode of atrial fibrillation with rapid ventricle response and is transferred to the ICU. She was hypotensive. She is back in sinus mechanism this morning and continues to be on IV Cardizem. She had a prior history of what appears to be DVT probably in her arm and has been anticoagulated. According to the family it is unclear if she had any arterial embolization from atrial fibrillation, she has been followed at [facility] and has been on anticoagulation since. She has no history of myocardial infarction or documented CHF. Her activity level is quite limited. She continues to be dyspneic and has a cough but she denies any chest discomfort, peripheral edema, PND or orthopnea. No evaluation of her systolic function is available to me. Her NT proBNP was elevated. She has no history of PND, orthopnea. According to her she had no recurrent atrial fibrillation since 6 years ago. She has no history of diabetes or hyperlipidemia. Medications: As an outpatient she is on Eliquis 5 mg twice a day, gabapentin, aspirin, Cymbalta Review of Systems: Respiratory: Dyspnea on exertion with cough and recurrent pneumonia GI: She has a PEG tube and episodes of abdominal discomfort : No hematuria or dysuria. Nervous System: No stroke . She has progressive weakness Physical Examination: 63-year-old female on Airvo,Blood pressure 124/55, Heart rate 87 Head: Status post radical neck dissection and reconstruction of the jaw Eyes: Sclerae nonicteric. Neck: Good carotid upstroke, no bruit, Lungs: Bilateral rhonchi at the bases Heart: Regular rate and rhythm, S1-S2, no S3, no rub. Systolic ejection murmur. Abdomen: Soft nontender, positive bowel sounds no organomegaly, PEG tube in place. Extremities: No edema, intact distal pulses. Labs: WBC 16.7, with 37.1 yesterday. Hemoglobin 9.7. Potassium 4.1. BUN 12, creatinine 0.36. NT proBNP 2100 yesterday and 3910 today. Chest x-ray with persistent lower lung infiltrate with small pleural effusion EKG: On admission sinus mechanism with nonspecific ST-T wave changes with normal axis Impression: 1. Paroxysmal atrial fibrillation probably exacerbated by the lung status. Patient has been anticoagulated and had a remote history of atrial fibrillation 2. Recurrent aspiration pneumonia 3. Status post PEG tube placement 4. Elevation of NT proBNP with no clear symptoms or findings on examination of heart failure, could be exacerbated by the lung status 5. Status post oral cancer and radical neck dissection and reconstructive surgery 6. Leukocytosis improving 7. History of DVT Plan: 1. Continue IV Cardizem for now 2. Continue anticoagulation 3. IV Lasix x 1 4. Obtain troponin 5. Obtain an echocardiogram with Doppler 6. Depending on her progress further recommendations will be made, thank you for this consult we will follow with you. 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 ( no saliva as result) WITH CHEMO & RADIATION [place] 2002,aspiration pneumonia History of Any Multi-Drug Resistant Organisms: MRSA Date of last positivie culture/infection: 08/01/24 MDRO Source:: Sputum/Blood Past Surgical History: Adenoidectomy, Appendectomy, Bladder Surgery, Hysterectomy, Tonsillectomy, Tubal Ligation Additional Past Surgical History / Comment(s): NECK DISECTION, BLADDER SUSPENSION, HEEL SPURS, 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 Past Psychological History: No Psychological Hx Reported Smoking Status: Former smoker Past Alcohol Use History: None Reported Additional Past Alcohol Use History / Comment(s): quit smoking 1985,smoked about 7 yrs Past Drug Use History: None Reported - Past Family History Father Family Medical History: Cancer Additional Family Medical History / Comment(s): NON-HODGKINS LYMPHOMA Medications and Allergies Home Medications Medication Instructions Recorded Confirmed Type Apixaban [Eliquis] 5 mg PEG/G-TUBE BID 06/23/21 08/06/24 History Aspirin 81 mg PEG/G-TUBE DAILY 06/23/21 08/06/24 History Gabapentin Oral Soln [Neurontin 900 mg PEG/G-TUBE TID 06/23/21 08/06/24 History Oral Soln] Levothyroxine Sodium [Synthroid] 75 mcg PEG/G-TUBE HS 06/23/21 08/06/24 History Cefuroxime [Ceftin] 250 mg PEG/G-TUBE BID 08/06/24 08/06/24 History DULoxetine HCL [Cymbalta] 30 mg PEG/G-TUBE DAILY 08/06/24 08/06/24 History oxyCODONE HCL 10 - 15 mg PEG/G-TUBE Q4H 08/06/24 08/06/24 History predniSONE See Taper PEG/G-TUBE DIRECTED 08/06/24 08/06/24 History Allergies Allergy/AdvReac Type Severity Reaction Status Date / Time Sulfa (Sulfonamide Allergy Throat Verified 08/06/24 12:57 Antibiotics) itching sulfamethoxazole Allergy Throat Verified 08/06/24 12:57 [From Bactrim] itching trimethoprim [From Bactrim] Allergy Throat Verified 08/06/24 12:57 itching Physical Exam Vitals: Vital Signs Temp Pulse Pulse Resp BP BP BP 08/10/24 08:18 87 08/10/24 08:09 08/10/24 08:08 87 08/10/24 08:00 98.8 F 79 124/55 08/10/24 06:46 08/10/24 03:59 126 H 16 109/50 08/10/24 02:52 98.6 F 161 H 18 101/71 08/10/24 02:32 165 H 85/65 08/10/24 01:27 98.2 F 129 H 18 99/74 08/09/24 22:24 109 H 18 08/09/24 21:26 90 08/09/24 19:35 98.0 F 109 H 18 146/71 08/09/24 16:32 92 08/09/24 16:23 88 08/09/24 14:07 98.5 F 81 16 132/67 Pulse Ox FiO2 08/10/24 08:18 08/10/24 08:09 93 L 85 08/10/24 08:08 08/10/24 08:00 92 L 80 08/10/24 06:46 93 L 85 08/10/24 03:59 100 08/10/24 02:52 100 08/10/24 02:32 08/10/24 01:27 99 08/09/24 22:24 08/09/24 21:26 08/09/24 19:35 90 L 08/09/24 16:32 08/09/24 16:23 08/09/24 14:07 99 Intake and Output 08/09/24 08/10/24 08/10/24 22:59 06:59 14:59 Other: Voiding Method Bedside Commode # Voids 0 Weight 56 kg 68.2 kg Results 08/10/24 04:33 08/10/24 04:33 Cardiac Enzymes 08/10/24 Range/Units 04:33 AST 34 (14-36) U/L CBC 08/10/24 Range/Units 04:33 WBC 16.7 H (3.8-10.6) k/uL RBC 3.23 L (3.80-5.40) m/uL Hgb 9.7 L (11.4-16.0) gm/dL Hct 31.0 L (34.0-46.0) % Plt Count 319 (150-450) k/uL Comprehensive Metabolic Panel 08/10/24 Range/Units 04:33 Sodium 134 L (137-145) mmol/L Potassium 4.1 (3.5-5.1) mmol/L Chloride 97 L (98-107) mmol/L Carbon Dioxide 30 (22-30) mmol/L BUN 12 (7-17) mg/dL Creatinine 0.36 L (0.52-1.04) mg/dL Glucose 92 (74-99) mg/dL Calcium 8.3 L (8.4-10.2) mg/dL AST 34 (14-36) U/L ALT 47 H (4-34) U/L Alkaline Phosphatase 403 H (38-126) U/L Total Protein 5.1 L (6.3-8.2) g/dL Albumin 2.4 L (3.5-5.0) g/dL Current Medications Generic Name Dose Route Start Last Admin Trade Name Freq PRN Reason Stop Dose Admin Albuterol/Ipratropium 3 ml 08/09/24 16:00 08/10/24 08:06 Ipratropium-Albuterol 3 Ml Neb INHALATION 3 ml RT-QID BLAKE Administration Apixaban 5 mg 08/07/24 09:00 08/10/24 09:18 Apixaban 5 Mg Tab PEG/G-TUBE 5 mg BID BLAKE Administration Protocol Aspirin 81 mg 08/07/24 09:00 08/10/24 09:18 Aspirin 81 Mg PEG/G-TUBE 81 mg DAILY BLAKE Administration Buspirone HCl 5 mg 08/07/24 16:00 08/09/24 21:11 Buspirone Hcl 5 Mg Tab PO 5 mg TID BLAKE Administration Duloxetine HCl 30 mg 08/07/24 09:00 08/10/24 09:19 Duloxetine Hcl 30 Mg Capsule.Dr PO 30 mg DAILY BLAKE Administration Famotidine 20 mg 08/07/24 09:00 08/10/24 09:19 Famotidine 20 Mg/2 Ml Vial IV 20 mg Q12HR BLAKE Administration Gabapentin 900 mg 08/06/24 22:00 08/10/24 09:18 Gabapentin 300 Mg Cap PEG/G-TUBE 900 mg TID BLAKE Administration Sodium Chloride 1,000 mls @ 20 mls/hr 08/06/24 12:15 08/10/24 01:50 Saline 0.9% IV Not Given .Q24H BLAKE Ceftriaxone Sodium 2 gm/ 50 mls @ 100 mls/hr 08/07/24 09:00 08/10/24 09:20 Sodium Chloride IVPB 100 mls/hr Q24HR BLAKE Administration Protocol Vancomycin HCl 1,000 mg/ 250 mls @ 125 mls/hr 08/08/24 20:00 08/10/24 04:34 Sodium Chloride IVPB 125 mls/hr Q8H BLAKE Administration Anidulafungin 100 mg/ Sodium 100 mls @ 84 mls/hr 08/10/24 17:00 Chloride IVPB DAILY@1700 BLAKE Protocol Diltiazem HCl 125 mg/ Sodium 125 mls @ 10 mls/hr 08/10/24 03:00 08/10/24 03:01 Chloride IV 10 mg/hr .[id number] BLAKE 10 mls/hr Administration 10 MG/HR Levothyroxine Sodium 75 mcg 08/06/24 21:00 08/10/24 09:18 Levothyroxine 75 Mcg Tab PEG/G-TUBE 75 mcg DAILY BLAKE Administration Miscellaneous Information 1 each 08/06/24 12:21 Pneumonia Protocol Utilized 1 Each Misc PO ONCE PRN Per Protocol Nystatin 500,000 unit 08/07/24 09:00 08/10/24 09:19 Nystatin 100,000 Unit/Ml Susp 500,000 Unit/5 Ml Cup PO 500,000 unit QID BLAKE Administration Protocol Ondansetron HCl 4 mg 08/08/24 22:01 Ondansetron 4 Mg/2 Ml Vial IVP Q6HR PRN Nausea And Vomiting Oxycodone HCl 15 mg 08/06/24 21:00 08/10/24 09:17 Oxycodone Hcl 5 Mg Tab PO 15 mg Q4H BLAKE Administration Intake and Output 08/09/24 08/10/24 08/10/24 22:59 06:59 14:59 Other: Voiding Method Bedside Commode # Voids 0 Weight 56 kg 68.2 kg 08/10/24 04:33 08/10/24 04:33
--- NOTE | 2024-08-10 12:09 | P.PN ---
Subjective Progress Note Date: 08/10/24 This is a pleasant 63 years old female with past medical history of multiple medical problems. Patient called her PCP office of Dr. Anderson and talked to his nurse practitioner Lynnette from she sees in the office complaining from little shortness of breath for the last 4 to 5 days with some cough and phlegm Associated with left lateral chest pain about 7/10 that is worse with coughing and deep breath. 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 Will BMP and LFTs were unremarkable as well as INR proBNP is 248 Chest x-ray showing left lower lobe infiltrate suspicious for pneumonia Patient was started on IV vancomycin and Zosyn and normal saline with pulmonary and ID team consult 08/07/2023 Patient sitting up in bed looks similar to yesterday, complaining from some pain in her left side of the chest but it looks controlled and patient is not in distress No significant dyspnea or tachypnea, she can go to the bathroom by herself with no exertional dyspnea However her oxygen requirement increased from 4 L up to 10 L today. Blood pressure is borderline and patient says usually her blood pressure on the low side Repeat chest x-ray showing similar left lower lobe infiltrate. Her legs are swollen we will going to check ultrasound of the leg given risk factors although she does not have much symptoms Patient remains on IV fluids normal saline at 130 and IV antibiotics with IV vancomycin and ceftriaxone Patient already on Cymbalta, she is asking to start her BuSpar but she is not sure about the dose, is going to be resumed [employer] Device Scientist consult is on for tube feeding 08/08 Patient is mildly tachypneic, not using accessory muscles of breathing, her oxygen requirement increased since yesterday to 10 to 11 L/min She has bilateral leg swelling, mild ultrasound of the leg is negative for DVT. Further workup including sputum culture and blood culture are pending. Blood pressure improved Remains on IV vancomycin and ceftriaxone IV fluid was lower dose 130 down to 75 mL/h Pro- Calcitonin is negative 08/09. Patient seen and examined. Currently on 11 L of oxygen. Patient had her jejunostomy tube not functioning, surgery consulted, they order CT abdominal p jasmina 08/10. Patient seen and examined. Patient went into A-fib with RVR overnight, had worsening respiratory status. Patient had rapid sponsor called and was transferred to ICU. Patient currently on Airvo. Gets short of breath on exertion REVIEW OF SYSTEMS: CONSTITUTIONAL: No fever, no malaise,. CARDIOVASCULAR: No chest pain, no palpitations, no syncope. PULMONARY: As mentioned above GASTROINTESTINAL: No diarrhea, no nausea, no vomiting, no abdominal pain. NEUROLOGICAL: No headaches, no weakness, PHYSICAL EXAMINATION: GENERAL: The patient is alert, chronically ill looking HEENT: Pupils are round and equally reacting to light. EOMI. No scleral icterus. No conjunctival pallor. Normocephalic, atraumatic. No pharyngeal erythema. No thyromegaly. CARDIOVASCULAR: S1 and S2 present. No murmurs, rubs, or gallops. PULMONARY coarse breath sounds bilaterally, bilateral rhonchi audible ABDOMEN: Soft, nontender, nondistended, normoactive bowel sounds. No palpable organomegaly. Jejunostomy tube seen MUSCULOSKELETAL: No joint swelling or deformity. EXTREMITIES: No cyanosis, clubbing, or pedal edema. NEUROLOGICAL: Gross neurological examination did not reveal any focal deficits. SKIN: No rashes. Assessment and plan Left lower lobe pneumonia Sepsis secondary to above Acute hypoxic respiratory failure secondary to above Mild calorie protein malnutrition History of mouth cancer , currently she uses PEG tube for nutrition COPD, not in acute acute issue History of pneumonia not on anticoagulation History of seizure Monitor vital signs Monitor CBC Monitor CMP Continue telemetry monitoring Encourage use of incentive spirometer Follow-up on blood cultures Continue breathing treatment Continue Cardizem drip, Eliquis Strict I's and O's, daily weights, got 1 dose of Lasix Continue vancomycin, Rocephin, ID added Eraxis Continue breathing treatments ID following Pulmonology following surgery consulted, CT abdominal pelvis reviewed, surgery to evaluate to check if we can use jejunostomy tube Labs and medication were reviewed.. Continue same treatment. Continue with symptomatic treatment. Resume home medication. Monitor labs and vitals. DVT and GI prophylaxis. Further recommendations as per clinical course of the patient Dictation was produced using [employer] dictation software. please excuse any grammatical, word or spelling errors. Objective - Vital Signs Vital signs: Vital Signs Temp 98.8 F 08/10/24 08:00 Pulse 87 08/10/24 08:18 Resp 16 08/10/24 03:59 BP 124/55 08/10/24 08:00 Pulse Ox 93 L 08/10/24 08:09 FiO2 85 08/10/24 08:09 Intake & Output 08/09/24 08/10/24 08/10/24 18:59 06:59 18:59 Weight 56 kg 68.2 kg Other: Voiding Method Bedside Commode Bedside Commode # Voids 1 0 # Bowel Movements 1 - Labs CBC & Chem 7: 08/10/24 04:33 08/10/24 04:33 Labs: Abnormal Lab Results - Last 24 Hours (Table) 08/10/24 08/10/24 Range/Units 04:33 04:33 WBC 16.7 H (3.8-10.6) k/uL RBC 3.23 L (3.80-5.40) m/uL Hgb 9.7 L (11.4-16.0) gm/dL Hct 31.0 L (34.0-46.0) % Neutrophils # 14.8 H (1.3-7.7) k/uL Lymphocytes # 0.8 L (1.0-4.8) k/uL Sodium 134 L (137-145) mmol/L Chloride 97 L (98-107) mmol/L Creatinine 0.36 L (0.52-1.04) mg/dL Calcium 8.3 L (8.4-10.2) mg/dL ALT 47 H (4-34) U/L Alkaline Phosphatase 403 H (38-126) U/L Total Protein 5.1 L (6.3-8.2) g/dL Albumin 2.4 L (3.5-5.0) g/dL Microbiology - Last 24 Hours (Table) 08/06/24 10:29 Blood Culture - Preliminary Blood 08/06/24 15:54 Gram Stain - Final Sputum Sputum Culture - Final Morganella morganii Strep agalactiae - (group b) Methicillin resist S. aureus Rosa albicans
--- NOTE | 2024-08-10 12:10 | P.PN ---
Subjective Progress Note Date: 08/10/24 Patient is a 63-year-old female with past medical history significant for oral cancer with previous radical neck dissection, followed by radiation, and reconstructive surgery, chronic dysphagia, PEG/PEG tubes, recurrent aspiration pneumonia, DVT/PE on Eliquis, among other things. We are consulted for pn eumonia. She does follow in the pulmonary office with Dr. Scott for episodes of recurrent aspiration pneumonia; actually had an appointment earlier in July, and was feeling well. Previously admitted back in 2022 with similar scenario and was treated for MRSA pneumonia. Her primary care provider is dali Church out of Dr. Lawton's office. Patient states that earlier in the week she had called her primary care fighter with a combination of symptoms including shortness of breath, cough with blood-tinged sputum, and left-sided pleuritic like chest pain. She states that this often occurs when she gets pneumonia. They did prescribe her doxycycline, and ordered sputum culture to be provided. Symptoms did not improve. Sputum culture obtained on 08/01 ended up coming back positive with MRSA, Morganella, and group B strep. She was told to come to the emergency department to be admitted. Chest x-ray showing a left lower lobe infiltrate. CBC remarkable for leukocytosis with a WBC count of 28. CMP includes a sodium 138, potassium 4.9, chloride 94, serum bicarb 35, BUN 28, creatinine 0.48, glucose 138. LFTs unremarkable. NT proBNP 248. Normal saline infusing at 130 mL/h. She is allergic to sulfa and Bactrim. Patient has been started on combination of antibiotics including Rocephin and vancomycin per infectious disease recommendation. Currently being evaluated in the emergency department. She is alert and oriented and able to answer my questions. She is on 4 L/min nasal cannula and her SpO2 is reading 92%. Non-distressed. Denies home O2 use. She is strict n.p.o. status with PEG/PEJ tube for enteral nutrition and medications. Continues to have intermittent cough with minimal blood-tinged sputum production. Denies megan hemoptysis. Has remained afebrile while inpatient. Current vitals: Temperature 98.6 F, heart rate 85 bpm, blood pressure 82/63 mmHg, nontachypneic, SpO2 92% on 4 L/min nasal cannula. The patient is seen today August 08, 2024 in follow-up on the regular medical floor. She is currently resting in bed. Awake and alert in no acute distress. She is maintaining O2 saturations in the 90s on 11 L high flow nasal cannula. Dopplers of the lower extremity were negative for DVT. Her procalcitonin was negative at 0.07. She has been on vancomycin and ceftriaxone. Her sputum culture still reveals MRSA, group B strep and Morganella Morganii. Chest x-ray reveals a mild residual right lower lobe infiltrate. She has been nurse with Jevity at 40 mL/h. She is anticoagulated with Eliquis. Receiving normal saline at 130 mL/h. 10 and 0.39. GFR greater than 90. Vancomycin trough 9.0. The patient is seen today August 09, 2024 in follow-up on the regular medical floor. She is currently sitting up in bed. Awake and alert in no acute distress. She is maintaining O2 saturation in the 90s on 7 L high flow nasal cannula. She has normal saline at 75 mL/h. She is being treated for her MRSA, Morganella and strep B infections. Continued on vancomycin and ceftriaxone. Continued on bronchodilators. Anticoagulated with Eliquis. White count 37.1. Hemoglobin 10.8. Platelets 362. Sodium 137. Potassium 4.5. Bicarb 35. BUN 9. Creatinine 0.42. Glucose 134. Continues to be nourished with Jevity at 40 mL/h. The patient is seen today August 10, 2024 in follow-up in the intensive care unit. She was transferred here as a 3 S. overflow after developing atrial fibrillation with a rapid ventricular response last night. She is awake and alert sitting up in bed. Maintaining O2 saturations in the 90s on Airvo high flow oxygen at 45 L and 85% FiO2. She states she is not feeling significantly shortness of breath but while her heart rate was fast she had a difficult time breathing. She had been initiated on Cardizem drip at 10 mg an hour. Normal saline at 75 mL/h. She is anticoagulated with Eliquis. She remains on antibiotics in the form of cefepime and ceftriaxone. Eraxis has since been added per ID service. Her PEG tube that was being used for medications had been not functioning. Surgery is following. She has a J-tube for tube feedings. She is receiving Jevity 1.5 at at 40 mL/h. Abdominal CT scan revealed percutaneous jejunostomy tube grossly intact. Patchy multifocal groundglass opacities in the right middle lobe. Sputum cultures positive for Morganella Morganii, strep agalactiae group B, MRSA and Rosa. White 319. Sodium 134. Potassium 4.1. Bicarb 30. BUN 12. Creatinine 0.36. Glucose 92. Troponins negative. proBNP 3910. TSH 0.506. Objective - Vital Signs Vital signs: Vital Signs Temp 98.8 F 08/10/24 08:00 Pulse 88 08/10/24 11:27 Resp 16 08/10/24 03:59 BP 124/55 08/10/24 08:00 Pulse Ox 93 L 08/10/24 08:09 FiO2 85 08/10/24 08:09 Intake & Output 08/09/24 08/10/24 08/10/24 18:59 06:59 18:59 Output Total 1600 Balance -1600 Weight 56 kg 68.2 kg Output: Urine 1600 Other: Voiding Method Bedside Commode Bedside Commode # Voids 1 0 # Bowel Movements 1 - Exam GENERAL EXAM: Alert, 63-year-old female, on Airvo high flow oxygen at 45 L and 85% FiO2, in no apparent distress. HEAD: Normocephalic and atraumatic EYES: Normal reaction of pupils, equal size. NOSE: Clear with pink turbinates. THROAT: No erythema or exudates. Edentulous, with previous reconstructive surgery. NECK: No masses, no JVD. CHEST: No chest wall deformity. LUNGS: Equal air entry with bilateral rhonchi and wheezing with left lower lobe inspiratory crackles. CVS: S1 and S2 normal with no audible murmur, irregular rhythm. No extra heart sounds ABDOMEN: No hepatosplenomegaly, active bowel sounds, no guarding or rigidity. T here are two percutaneous feeding tubes. SPINE: No scoliosis or deformity SKIN: No rashes CENTRAL NERVOUS SYSTEM: No focal deficits, tone is normal in all 4 extremities. EXTREMITIES: There is no peripheral edema, clubbing, or cyanosis. Peripheral pulses are intact. - Labs CBC & Chem 7: 08/10/24 04:33 08/10/24 04:33 Labs: Abnormal Lab Results - Last 24 Hours (Table) 08/10/24 08/10/24 Range/Units 04:33 04:33 WBC 16.7 H (3.8-10.6) k/uL RBC 3.23 L (3.80-5.40) m/uL Hgb 9.7 L (11.4-16.0) gm/dL Hct 31.0 L (34.0-46.0) % Neutrophils # 14.8 H (1.3-7.7) k/uL Lymphocytes # 0.8 L (1.0-4.8) k/uL Sodium 134 L (137-145) mmol/L Chloride 97 L (98-107) mmol/L Creatinine 0.36 L (0.52-1.04) mg/dL Calcium 8.3 L (8.4-10.2) mg/dL ALT 47 H (4-34) U/L Alkaline Phosphatase 403 H (38-126) U/L Total Protein 5.1 L (6.3-8.2) g/dL Albumin 2.4 L (3.5-5.0) g/dL Microbiology - Last 24 Hours (Table) 08/06/24 10:29 Blood Culture - Preliminary Blood 08/06/24 15:54 Gram Stain - Final Sputum Sputum Culture - Final Morganella morganii Strep agalactiae - (group b) Methicillin resist S. aureus Rosa albicans Assessment and Plan Assessment: Left lower lobe community-acquired pneumonia, sputum sample obtained 08/01 and again on August 06, 2024 positive for MRSA, Morganella, and group B strep and Rosa. Failed outpatient treatment. Chest x-ray shows left lower lobe consolidation. Remains on vancomycin, ceftriaxone and Eraxis Atrial fibrillation with a rapid ventricular response, transferred to [facility] but is in ICU as overflow. Currently on Cardizem drip at 10 mg an hour. Anticoagulated with Eliquis Acute hypoxemic respiratory failure, secondary to above Acute leukocytosis History of recurrent aspiration pneumonia and MRSA pneumonia. 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 Number of minutes spent on the visit: 10 Dictation was produced using [employer] dictation software. Please excuse any grammatical, word or spelling errors. This patient was seen in coordination with the pulmonary/critical care physician, Dr. Thompson. He did spend greater than 50% of the time evaluating, examining and developing the plan of care. He agrees to the above HPI, physical exam, assessment and plan of care as dictated by the nurse practitioner.
[2024-08-10] MEDS: ANIDULAFUNGIN 100 MG in SODIUM CHLORIDE 0.9% 100 ML IVPB SCH (16:52)
--- NOTE | 2024-08-10 21:57 | P.PN ---
Subjective Progress Note Date: 08/10/24 Principal diagnosis: Reason for follow-up is pneumonia Patient is a 63-year-old female with a past medical history significant for COPD PE seizure disorder pneumonia squamous cell cancer of the base of the tongue and neck patient presenting to the hospital for evaluation of increasing shortness of breath and the patient also have a cough with recent outpatient sputum culture positive for MRSA and Morganella. Patient chest x-ray right lower lobe infiltrate. On today's evaluation that is 08/10/2024, Patient is afebrile patient is currently on high flow nasal cannula oxygen however denies having any worsening shortness of breath, the patient denies any chest pain or any worsening cough, the patient denies any nausea vomiting did not have any abdominal pain and no diarrhea. Patient white count is down to 16.7 creatinine 0.36 Objective - Vital Signs Vital signs: Vital Signs Temp 98.8 F 08/10/24 08:00 Pulse 87 08/10/24 08:18 Resp 16 08/10/24 03:59 BP 124/55 08/10/24 08:00 Pulse Ox 93 L 08/10/24 08:09 FiO2 85 08/10/24 08:09 Intake & Output 08/09/24 08/10/24 08/10/24 18:59 06:59 18:59 Output Total 800 Balance -800 Weight 56 kg 68.2 kg Output: Urine 800 Other: Voiding Method Bedside Commode Bedside Commode # Voids 1 0 # Bowel Movements 1 - Exam GENERAL DESCRIPTION: Middle-age female up in bed in no distress RESPIRATORY SYSTEM: Unlabored breathing , coarse breath sounds at bases HEART: S1 S2 regular rate and rhythm , ABDOMEN: Soft , no tenderness EXTREMITIES: No edema feet - Labs CBC & Chem 7: 08/10/24 04:33 08/10/24 04:33 Labs: Abnormal Lab Results - Last 24 Hours (Table) 08/10/24 08/10/24 Range/Units 04:33 04:33 WBC 16.7 H (3.8-10.6) k/uL RBC 3.23 L (3.80-5.40) m/uL Hgb 9.7 L (11.4-16.0) gm/dL Hct 31.0 L (34.0-46.0) % Neutrophils # 14.8 H (1.3-7.7) k/uL Lymphocytes # 0.8 L (1.0-4.8) k/uL Sodium 134 L (137-145) mmol/L Chloride 97 L (98-107) mmol/L Creatinine 0.36 L (0.52-1.04) mg/dL Calcium 8.3 L (8.4-10.2) mg/dL ALT 47 H (4-34) U/L Alkaline Phosphatase 403 H (38-126) U/L Total Protein 5.1 L (6.3-8.2) g/dL Albumin 2.4 L (3.5-5.0) g/dL Microbiology - Last 24 Hours (Table) 08/06/24 10:29 Blood Culture - Preliminary Blood 08/06/24 15:54 Gram Stain - Final Sputum Sputum Culture - Final Morganella morganii Strep agalactiae - (group b) Methicillin resist S. aureus Rosa albicans Assessment and Plan (1) MRSA (methicillin resistant Staphylococcus aureus) infection Current Visit: Yes Status: Acute Code(s): A49.02 - METHICILLIN RESIS STAPH INFECTION, UNSP SITE SNOMED Code(s): 224771993 (2) Allergy to sulfa drugs Current Visit: Yes Status: Acute Code(s): Z88.2 - ALLERGY STATUS TO SULFONAMIDES SNOMED Code(s): 30543686 (3) Failure of outpatient treatment Current Visit: Yes Status: Acute Code(s): Z78.9 - OTHER SPECIFIED HEALTH STATUS SNOMED Code(s): 781933594 (4) Pneumonia Current Visit: Yes Status: Acute Code(s): J18.9 - PNEUMONIA, UNSPECIFIED ORG ANISM SNOMED Code(s): 256962626 Plan: 1patient presented hospital with increasing shortness of breath also have a cough bringing up some bloodstained sputum chest x-ray with a left lobe infiltrate patient did have elevated white count 28,000 with recent outpatient sputum culture positive for Streptococcus agalactiae MRSA and Morganella likely pathogen 2sulfa allergy that would limit the number of antibiotics safe to use 3-patient did have worsening of her respiratory status requiring transfer to the ICU requiring high flow oxygen with a possible component of fluid overload patient is started on Lasix patient white count is trending down down to 16,000 with addition of Is to continue along with Rocephin and vancomycin and monitor c linical course closely Family the bedside question was Dictation was produced using [employer] dictation software. please excuse any grammatical, word or spelling errors. Time with Patient: Less than 30
[2024-08-10 23:12] LABS: LDL Cholesterol,Calculated 54.4 mg/dL (0.0-131.0)
[2024-08-10] MEDS: METOPROLOL TARTRATE 25 MG TAB PO SCH (23:29)
[2024-08-11 00:52] LABS: Glucose,Whole Blood 102 mg/dL (70-110)
--- NOTE | 2024-08-11 06:00 | XR ---
EXAM: XR Chest, 1 View CLINICAL HISTORY: ITS.REASON XR Reason: increased O2 demands TECHNIQUE: Frontal view of the chest. COMPARISON: X-ray dated 08/10/2024 FINDINGS: Lungs: Stable opacification of the bilateral lung bases. Pleural space: Bilateral pleural effusions. No pneumothorax. Heart: Mild enlargement of the heart. Mediastinum: Unremarkable. Normal mediastinal contour. Bones/joints: Unremarkable. No acute fracture. IMPRESSION: Stable bilateral pleural effusions with adjacent atelectasis and no pneumonia not excluded.
--- NOTE | 2024-08-11 07:25 | P.PN ---
Progress Note - Text Progress Note Date: 08/10/24 No acute events overnight. Limitations: no limitations General appearance: alert, in no apparent distress Head exam: Present: atraumatic, normocephalic, normal inspection ENT exam: Present: mucous membranes moist. Absent: normal exam, normal oropharynx Neck exam: Absent: normal inspection, tenderness, meningismus, lymphadenopathy Respiratory exam: Present: wheezes, rales, rhonchi, chest wall tenderness. Absent: normal lung sounds bilaterally, respiratory distress Cardiovascular Exam: Present: regular rate, normal rhythm, normal heart sounds. Absent: systolic murmur, diastolic murmur, rubs, gallop, clicks GI/Abdominal exam: Present: soft, normal bowel sounds. Absent: distended, tend erness, guarding, rebound, rigid Skin exam: Present: warm, dry, intact, normal color. Absent: rash 63 year old female with clogged jejunostomy tube and nausea -Attempted to flush jejunostomy tube which did not work -J tube exchanged bedside Darrius Wick DO [facility] [phone]
[2024-08-11 07:33] LABS: African American GFR (CKD) >90 (>60 ml/min/1.73 sqM); Non-African American GFR(CKD) >90 (>60 ml/min/1.73 sqM)
[2024-08-11 07:37] LABS: African American GFR (CKD) >90 (>60 ml/min/1.73 sqM); Anion Gap 9 mmol/L; Blood Urea Nitrogen 12 mg/dL (7-17); Calcium 8.7 mg/dL (8.4-10.2); Carbon Dioxide 34 mmol/L (22-30); Chloride 94 mmol/L (98-107); Glucose 87 mg/dL (74-99); Non-African American GFR(CKD) >90 (>60 ml/min/1.73 sqM); Potassium 3.9 mmol/L (3.5-5.1); Sodium 137 mmol/L (137-145)
--- NOTE | 2024-08-11 10:39 | P.PN ---
Subjective Progress Note Date: 08/11/24 08/11/2023, the patient is being seen for a follow-up. Is a 63-year-old female patient with past medical history of oral cancer and previous radical neck dissection followed by radiation therapy and reconstructive surgery and the patient suffers from chronic dysphagia and the patient has PEG tube. The pat ient also has previous history of DVT/pulmonary embolism maintained on anticoagulation. She has history of atrial fibrillation, hypothyroidism and seizure disorders. For now, the patient is in the intensive care unit for an acute hypoxic respiratory failure. The patient is currently on Airvo at 60 L with an FiO2 of 90% %. Chest x-ray shows bilateral lower lobe consolidation and possibly some small effusions. Antibiotic coverage is with IV Eraxis, vancomycin and Rocephin. Sputum samples collected on 08/06/2024 was consistent with MRSA, Morganella morganii and strep agalactiae. The patient had developed significant leukocytosis which is downtrending and the white cell count from yesterday was down to 16. Patient also developed atrial fibrillation with rapid ventricular response over the past 24 to 48 hours. The patient based on that was started on Cardizem drip and she is already anticoagulated with Eliquis. She remains on Cardizem at 10 mg an hour. She is also on metoprolol 25 mg p.o. twice daily for rate control. The patient is also on oxygen and Airvo settings this morning is 6 L with an FiO2 of 90%. The patient has a J-tube for feeding receiving Jevity 1.5 at the rate of 40 cc an hour. The J-tube was replaced yesterday. This was done by general surgery. CAT scan of the abdomen done on 08/09/2024 showed that the jejunostomy tube was grossly intact. Nevertheless, it there was evidence of lower lobe consolidations bilaterally worse on the left. Objective - Vital Signs Vital signs: Vital Signs Temp 98.1 F 08/11/24 00:00 Pulse 112 H 08/11/24 04:00 Resp 16 08/11/24 04:00 BP 124/61 08/11/24 04:00 Pulse Ox 92 L 08/11/24 04:54 FiO2 90 08/11/24 04:54 Intake & Output 08/10/24 08/10/24 08/11/24 06:59 18:59 06:59 Intake Total 95.167 125 Output Total 2200 400 Balance -2104.833 -275 Weight 68.2 kg 57.5 kg Intake: Intake, IV Titration 95.167 125 Amount Diltiazem 125 mg In 95.167 125 Sodium Chloride 0.9% 100 ml @ 10 MG/HR 10 mls/hr IV .[id number] [facility] Rx#: [id number] Output: Urine 2200 400 Other: Voiding Method Bedside Commode External Catheter # Voids 0 2 - Exam GENERAL EXAM: Alert, 63-year-old female, on Airvo high flow oxygen at 60 L with FiO2 of 90%, in no apparent distress. HEAD: Normocephalic and atraumatic EYES: Normal reaction of pupils, equal size. NOSE: Clear with pink turbinates. THROAT: No erythema or exudates. Edentulous, with previous reconstructive surgery. NECK: No masses, no JVD. CHEST: No chest wall deformity. LUNGS: Equal air entry with bilateral rhonchi and wheezing with left lower lobe inspiratory crackles. CVS: S1 and S2 normal with no audible murmur, irregular rhythm. No extra heart sounds ABDOMEN: No hepatosplenomegaly, active bowel sounds, no guarding or rigidity. There are two percutaneous feeding tubes. SPINE: No scoliosis or deformity SKIN: No rashes CENTRAL NERVOUS SYSTEM: No focal deficits, tone is normal in all 4 extremities. EXTREMITIES: There is no peripheral edema, clubbing, or cyanosis. Peripheral pulses are intact. - Labs CBC & Chem 7: 08/10/24 04:33 08/11/24 05:19 Labs: Abnormal Lab Results - Last 24 Hours (Table) 08/10/24 08/10/24 Range/Units 07:16 11:32 HDL Cholesterol 39.70 L (40.00-60.00) mg/dL Procalcitonin 1.60 H (0.02-0.50) ng/mL Assessment and Plan Plan: Acute hypoxic respiratory failure and the patient is currently on Airvo 60 L wit h an FiO2 of 90% Bilateral lower lobe pneumonia, bacterial, likely related to aspiration, sputum sample obtained 08/01 and again on August 06, 2024 positive for MRSA, Morganella, and group B strep and Rosa. Failed outpatient treatment. The patient's pneumonia is polymicrobial. Remains on vancomycin, ceftriaxone and Eraxis, infectious disease on the case. Acute leukocytosis, improving Shortness of breath secondary to above Atrial fibrillation with a rapid ventricular response, Currently on Cardizem drip at 10 mg an hour. Anticoagulated with Eliquis, echocardiogram is pending History of recurrent aspiration pneumonia and MRSA pneumonia. 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 The patient is currently on Airvo 60 L and FiO2 of 90% Discontinue the nonrebreather facemask Pulmonary toileting Daily chest x-rays Provide incentive spirometer Currently on a Cardizem drip Anticoagulated with Eliquis Continue same antibiotic coverage includes a combination of Rocephin, vancomycin and Eraxis Continue bronchodilators Continue with Jevity tube feedings, the G-tube has been replaced Will continue to follow Condition is obviously critical. Will continue to follow make further recommendations based on progress. Evaluation was done more than 30 minutes. Time with Patient: Greater than 30
--- NOTE | 2024-08-11 10:42 | XR ---
EXAMINATION TYPE: XR abdomen 1V DATE OF EXAM: 08/11/2024 10:35 AM CLINICAL HISTORY: J-tube placement. TECHNIQUE: Single supine KUB image of the abdomen is obtained. COMPARISON: CT abdomen and pelvis 2 days earlier. FINDINGS: Percutaneous gastrostomy tube redemonstrated. Below this percutaneous jejunostomy tube agai n seen. Scattered gas in nondistended small and large bowel loops. Visualized lung bases redemonstrat e small bilateral pleural effusions and associated consolidation/atelectasis. Osseous structures are intact. Hepatomegaly is redemonstrated. IMPRESSION: As above. [facility], , 08/11/2024 10:39 AM
--- NOTE | 2024-08-11 11:23 | CA ---
Transthoracic Echo Report Name: Jessica Bobo Age: 63 Gender: F : 1960 Exam Date: 08/11/2024 07:41 Exam Location: [facility] Ht (in): 62 Wt (lb): 126 Ordering Physician: Gege Cuellar MD ([id number]) Attending/Referring Phys: Case Folder Ashlyn Martinez RDCS Procedure CPT: Indications: new afib RVR Cardiac Hx: Technical Quality: Fair Contrast 1: Total Dose (mL): Contrast 2: Total Dose (mL): MEASUREMENTS (Male / Female) Normal Values 2D ECHO LV Diastolic Diameter PLAX 3.7 cm 4.2 - 5.9 / 3.9 - 5.3 cm LV Systolic Diameter PLAX 2.7 cm IVS Diastolic Thickness 1.0 cm 0.6 - 1.0 / 0.6 - 0.9 cm LVPW Diastolic Thickness 0.8 cm 0.6 - 1.0 / 0.6 - 0.9 cm LV Relative Wall Thickness 0.5 LVOT Diameter 1.8 cm Aortic Root Diameter 2.7 cm LV Diastolic Volume MOD BP 52.9 cm??? 67 - 155 / 56 - 104 cm??? LV Systolic Volume MOD BP 17.8 cm??? 22 - 58 / 19 - 49 cm??? LV Ejection Fraction MOD BP 66.5 % >= 55 % LV Cardiac Index MOD BP 2946.8 cm???/min???m??? LV Diastolic Volume MOD 4C 59.4 cm??? LV Systolic Volume MOD 4C 14.3 cm??? LV Ejection Fraction MOD 4C 75.9 % LV Cardiac Index MOD 4C 3773.8 cm???/min???m??? LV Diastolic Length 4C 6.9 cm LV Systolic Length 4C 5.3 cm LV Diastolic Volume MOD 2C 44.3 cm??? LV Systolic Volume MOD 2C 20.8 cm??? LV Ejection Fraction MOD 2C 53.1 % LV Cardiac Index MOD 2C 1970.1 cm???/min???m??? LV Diastolic Length 2C 6.4 cm LV Systolic Length 2C 5.6 cm DOPPLER AV Peak Velocity 141.8 cm/s AV Peak Gradient 8.0 mmHg AV Mean Velocity 108.0 cm/s AV Mean Gradient 5.2 mmHg AV Velocity Time Integral 19.5 cm LVOT Peak Velocity 127.1 cm/s LVOT Peak Gradient 6.5 mmHg LVOT Velocity Time Integral 16.9 cm LVOT Stroke Volume 41.5 cm??? LVOT Stroke Volume Index 26.4 ml/m??? LVOT Cardiac Index 3473.8 cm???/min???m??? AV Area Cont Eq vti 2.1 cm??? AV Area Cont Eq pk 2.2 cm??? TR Peak Velocity 244.8 cm/s TR Peak Gradient 24.0 mmHg Right Atrial Pressure 15.0 mmHg Pulmonary Artery Systolic Pressu 39.0 mmHg Right Ventricular Systolic Press 39.0 mmHg PV Peak Velocity 92.2 cm/s PV Peak Gradient 3.4 mmHg FINDINGS Left Ventricle Left ventricular ejection fraction is estimated at 65-70 %. Left ventricular cavity size normal. Left ventricular wall thickness normal. No obvious regional wall motion abnormalities. Hyperdynamic left ventricular systolic function. Right Ventricle Normal right ventricular size and function. Mild pulmonary hypertension. Right Atrium Mild right atrial dilatation. Left Atrium Mild left atrial dilatation. Mitral Valve Structurally normal mitral valve. No evidence for mitral valve prolapse. No mitral stenosis. No mitral regurgitation. Aortic Valve Trileaflet aortic valve. Aortic valve sclerosis. No aortic valve stenosis or regurgitation. Tricuspid Valve Structurally normal tricuspid valve. No tricuspid stenosis. [id number] tricuspid regurgitation. Pulmonic Valve Pulmonic valve not well visualized. No pulmonic stenosis. Trace pulmonic regurgitation. Pericardium No pericardial effusion. Aorta Aortic annulus normal. CONCLUSIONS Hyperdynamic LV with LVEF 65% No obvious regional wall motion abnormality Mild biatrial dilatation No significant valvular dysfunction other than mild to moderate TR Previewed by: Dr Brian De Luna (Electronically Signed) Final Date: 11 August 2024 11:23
[2024-08-11] MEDS: guaiFENesin SYRUP 100MG/5ML 200 MG/10 ML CUP PO SCH (11:59)
[2024-08-11 12:08] LABS: Glucose,Whole Blood 107 mg/dL (70-110)
--- NOTE | 2024-08-11 15:21 | P.PN ---
Subjective History of Present Illness: The patient is a 63-year-old female, status post radical neck dissection for oral cancer and reconstructive surgery, history of PEG tube because of recurrent aspiration who was admitted to the hospital because of progressive dyspnea cough and was noted to have recurrent aspiration pneumonia. Yesterday she had an episode of atrial fibrillation with rapid ventricle response and is transferred to the ICU. She was hypotensive. She is back in sinus mechanism this morning and continues to be on IV Cardizem. She had a prior history of what appears to be DVT probably in her arm and has been anticoagulated. According to the family it is unclear if she had any arterial embolization from atrial fibrillation, she has been followed at [facility] and has been on anticoagulation since. She has no history of myocardial infarction or documented CHF. Her activity level is quite limited. She continues to be dyspneic and has a cough but she denies any chest discomfort, peripheral edema, PND or orthopnea. No evaluation of her systolic function is available to me. Her NT proBNP was elevated. She has no history of PND, orthopnea. According to her she had no recurrent atrial fibrillation since 6 years ago. She has no history of diabetes or hyperlipidemia. Medications: As an outpatient she is on Eliquis 5 mg twice a day, gabapentin, aspirin, Cymbalta / Patient seen and examined. Patient denies chest pain or pressure. Echocardiogram performed this morning which shows EF 65-70% with hyperdynamic function, no mitral regurgitation, [id number] tricuspid regurgitation. She was on Cardizem drip at 10 however this was decreased to 5 and is currently in sinus rhythm. She was not very symptomatic in terms of feeling her A. fib during the episode. She is tolerating metoprolol 25 twice a day. Physical Examination: 63-year-old female on Airvo,Blood pressure 124/55, Heart rate 87 Head: Status post radical neck dissection and reconstruction of the jaw Eyes: Sclerae nonicteric. Neck: Good carotid upstroke, no bruit, Lungs: Bilateral rhonchi at the bases Heart: Regular rate and rhythm, S1-S2, no S3, no rub. Systolic ejection murmur. Abdomen: Soft nontender, positive bowel sounds no organomegaly, PEG tube in place. Extremities: No edema, intact distal pulses. Labs: WBC 16.7, with 37.1 yesterday. Hemoglobin 9.7. Potassium 4.1. BUN 12, creatinine 0.36. NT proBNP 2100 yesterday and 3910 today. Chest x-ray with persistent lower lung infiltrate with small pleural effusion EKG: On admission sinus mechanism with nonspecific ST-T wave changes with normal axis Impression: 1. Paroxysmal atrial fibrillation probably exacerbated by the lung status. Patient has been anticoagulated and had a remote history of atrial fibrillation 2. Recurrent aspiration pneumonia 3. Status post PEG tube placement 4. Elevation of NT proBNP with no clear symptoms or findings on examination of heart failure, could be exacerbated by the lung status 5. Status post oral cancer and radical neck dissection and reconstructive surgery 6. Leukocytosis improving 7. History of DVT Plan: She is back to normal sinus rhythm. A. fib appears more of a response to her respiratory distress rather than a cause. Did have some significant elevation proBNP however does not currently appear volume overloaded with hyperdynamic LV function. Predominantly appears more of a pulmonary source of her continued respiratory distress, respiratory failure. No further recommendations from cardiology standpoint. Continue with metoprolol as well as anticoagulation. Please call with questions. Objective - Vital Signs Vital signs: Vital Signs Temp 98.2 F 08/11/24 12:00 Pulse 64 08/11/24 15:00 Resp 14 08/11/24 15:00 BP 123/71 08/11/24 15:00 Pulse Ox 95 08/11/24 15:00 FiO2 90 08/11/24 11:54 Intake & Output 08/10/24 08/11/24 08/11/24 18:59 06:59 18:59 Intake Total 95.167 125 735 Output Total 2200 400 300 Balance -2104.833 -275 435 Weight 57.5 kg 57.5 kg Intake: IV 340 Sodium Chloride 0.9% 1, 40 000 ml @ 20 mls/hr IV . Q24H [facility] Rx#:[id number] Vancomycin 1,000 mg In 250 Sodium Chloride 0.9% 250 ml @ 125 mls/hr IVPB Q8H [facility] Rx#:[id number] cefTRIAXone 2 gm In 50 Sodium Chloride 0.9% 50 ml @ 100 mls/hr IVPB Q24HR [facility] Rx#:[id number] Intake, IV Titration 95.167 125 125 Amount Diltiazem 125 mg In 95.167 125 125 Sodium Chloride 0.9% 100 ml @ 10 MG/HR 10 mls/hr IV .[id number] [facility] Rx#: [id number] Tube Feeding 120 Other 150 Output: Urine 2200 400 300 Other: Voiding Method External Catheter # Voids 2 2 - Labs CBC & Chem 7: 08/10/24 04:33 08/11/24 05:19 Labs: Abnormal Lab Results - Last 24 Hours (Table) 08/10/24 08/11/24 08/11/24 Range/Units 11:32 05:19 05:19 Chloride 94 L (98-107) mmol/L Carbon Dioxide 34 H (22-30) mmol/L Creatinine 0.42 L 0.41 L (0.52-1.04) mg/dL HDL Cholesterol 39.70 L (40.00-60.00) mg/dL
[2024-08-11 17:41] LABS: Glucose,Whole Blood 126 mg/dL (70-110)
--- NOTE | 2024-08-11 21:02 | P.PN ---
Subjective This is a pleasant 63 years old female with past medical history of multiple medical problems. Patient called her PCP office of Dr. Anderson and talked to his nurse practitioner Lynnette from she sees in the office complaining from little shortness of breath for the last 4 to 5 days with some cough and phlegm Associated with left lateral chest pain about 7/10 that is worse with coughing and deep breath. Her nurse practitioner Lynnette asked her to get sputum sample and resulted back as MRSA so she got a call from the office to head to the emergency room Currently she is endorsing the same symptoms as above However she denies any specific GI/ symptoms no headache dizziness weakness or numbness She quit smoking years ago with no alcohol or illicit drugs as well She is not on oxygen at home She has a known history of mouth cancer s/p left-sided jaw replacement She does not eat but uses a PEG tube for feeding 2 weeks ago she saw her oncologist and Dr. gastelum her broadband installer and she was doing fine Patient has afebrile in the emergency room She was saturating 90s on 4 L oxygen via nasal cannula Blood pressure is soft On admission she has leukocytosis of 28,000. Will BMP and LFTs were unremarkable as well as INR proBNP is 248 Chest x-ray showing left lower lobe infiltrate suspicious for pneumonia Patient was started on IV vancomycin and Zosyn and normal saline with pulmonary and ID team consult 08/07/2023 Patient sitting up in bed looks similar to yesterday, complaining from some pain in her left side of the chest but it looks controlled and patient is not in distress No significant dyspnea or tachypnea, she can go to the bathroom by herself with no exertional dyspnea However her oxygen requirement increased from 4 L up to 10 L today. Blood pressure is borderline and patient says usually her blood pressure on the low side Repeat chest x-ray showing similar left lower lobe infiltrate. Her legs are swollen we will going to check ultrasound of the leg given risk factors although she does not have much symptoms Patient remains on IV fluids normal saline at 130 and IV antibiotics with IV vancomycin and ceftriaxone Patient already on Cymbalta, she is asking to start her BuSpar but she is not sure about the dose, is going to be resumed Child Welfare Worker consult is on for tube feeding 08/08 Patient is mildly tachypneic, not using accessory muscles of breathing, her oxygen requirement increased since yesterday to 10 to 11 L/min She has bilateral leg swelling, mild ultrasound of the leg is negative for DVT. Further workup including sputum culture and blood culture are pending. Blood pressure improved Remains on IV vancomycin and ceftriaxone IV fluid was lower dose 130 down to 75 mL/h Pro- Calcitonin is negative Resuming the care of the patient today 08/11 Patient respiratory status got worse and she was moved to the ICU. Currently she is awake alert but requires 60 L/min with 90% of FiO2 Abdomen soft, PEG tube is in place No headache or dizziness WBC is trending down to 16,000, hemoglobin down to two 9.7 Pro- Calcitonin increased to 1.6 and 1 extra dose of MiraLAX is added to her antibiotic Ejection fraction is 65 to 70% CT of the abdomen pelvis showing nonobstructive lesion Patient currently covered with IV vancomycin and ceftriaxone and Eraxis, also patient developed A-fib with RVR and followed by body trimmer, started on Eliquis at metoprolol also patient continued on aspirin Active Medications Generic Name Dose Route Start Last Admin Trade Name Freq PRN Reason Stop Dose Admin Albuterol/Ipratropium 3 ml 08/09/24 16:00 08/11/24 20:25 Ipratropium-Albuterol 3 Ml Neb INHALATION Not Given RT-QID [facility] Apixaban 5 mg 08/07/24 09:00 08/11/24 10:20 Apixaban 5 Mg Tab PEG/G-TUBE 5 mg BID [facility] Administration Protocol Aspirin 81 mg 08/07/24 09:00 08/11/24 10:21 Aspirin 81 Mg PEG/G-TUBE 81 mg DAILY [facility] Administration Buspirone HCl 5 mg 08/07/24 16:00 08/11/24 17:38 Buspirone Hcl 5 Mg Tab PO 5 mg TID [facility] Administration Duloxetine HCl 30 mg 08/07/24 09:00 08/11/24 10:20 Duloxetine Hcl 30 Mg Capsule.Dr PO 30 mg DAILY [facility] Administration Famotidine 20 mg 08/07/24 09:00 08/11/24 10:19 Famotidine 20 Mg/2 Ml Vial IV 20 mg Q12HR [facility] Administration Gabapentin 900 mg 08/06/24 22:00 08/11/24 17:38 Gabapentin 300 Mg Cap PEG/G-TUBE 900 mg TID [facility] Administration Guaifenesin 200 mg 08/11/24 11:00 08/11/24 17:38 Guaifenesin Syrup 100mg/5ml 200 Mg/10 Ml Cup PO 200 mg Q4HR [facility] Administration Sodium Chloride 1,000 mls @ 20 mls/hr 08/06/24 12:15 08/11/24 02:18 Saline 0.9% IV 20 mls/hr .Q24H [facility] Administration Ceftriaxone Sodium 2 gm/ 50 mls @ 100 mls/hr 08/07/24 09:00 08/11/24 10:19 Sodium Chloride IVPB 100 mls/hr Q24HR [facility] Administration Protocol Vancomycin HCl 1,000 mg/ 250 mls @ 125 mls/hr 08/08/24 20:00 08/11/24 14:56 Sodium Chloride IVPB 125 mls/hr Q8H [facility] Administration Anidulafungin 100 mg/ Sodium 100 mls @ 84 mls/hr 08/10/24 17:00 08/11/24 17:37 Chloride IVPB 84 mls/hr DAILY@1700 [facility] Administration Protocol Levothyroxine Sodium 75 mcg 08/06/24 21:00 08/11/24 10:20 Levothyroxine 75 Mcg Tab PEG/G-TUBE 75 mcg DAILY [facility] Administration Metoprolol Tartrate 25 mg 08/10/24 23:30 08/11/24 10:20 Metoprolol Tartrate 25 Mg Tab PO 25 mg BID [facility] Administration Miscellaneous Information 1 each 08/06/24 12:21 Pneumonia Protocol Utilized 1 Each Misc PO ONCE PRN Per Protocol Miscellaneous Information 1 each 08/12/24 11:00 Vancomycin Trough Due 1 Each Misc MISCELLANE 08/12/24 11:01 ONCE ONE Nystatin 500,000 unit 08/07/24 09:00 08/11/24 19:13 Nystatin 100,000 Unit/Ml Susp 500,000 Unit/5 Ml Cup PO Not Given QID [facility] Protocol Ondansetron HCl 4 mg 08/08/24 22:01 Ondansetron 4 Mg/2 Ml Vial IVP Q6HR PRN Nausea And Vomiting Oxycodone HCl 15 mg 08/06/24 21:00 08/11/24 17:38 Oxycodone Hcl 5 Mg Tab PO 15 mg Q4H [facility] Administration Objective - Vital Signs Vital signs: Vital Signs Temp 98.0 F 08/11/24 08:00 Pulse 78 08/11/24 09:35 Resp 10 L 08/11/24 08:00 BP 122/59 08/11/24 08:00 Pulse Ox 96 08/11/24 08:00 FiO2 90 08/11/24 08:24 Intake & Output 08/10/24 08/11/24 08/11/24 18:59 06:59 18:59 Intake Total 95.167 125 Output Total 2200 400 Balance -2104.833 -275 Weight 57.5 kg Intake: Intake, IV Titration 95.167 125 Amount Diltiazem 125 mg In 95.167 125 Sodium Chloride 0.9% 100 ml @ 10 MG/HR 10 mls/hr IV .[id number] [facility] Rx#: [id number] Output: Urine 2200 400 Other: Voiding Method External Catheter # Voids 2 - Exam GENERAL: The patient is alert and oriented x3, not in any acute distress. Well developed, well nourished. -HEENT: Pupils are round and equally reacting to light. EOMI. No scleral icterus. No conjunctival pallor. Normocephalic, atraumatic. No pharyngeal erythema. No thyromegaly. Healed scar of the left jaw surgery CARDIOVASCULAR: S1 and S2 present. No murmurs, rubs, or gallops. PULMONARY: Chest is clear to auscultation, no wheezing , no crackles. -ABDOMEN: Soft, nontender, nondistended, normoactive bowel sounds. No palpable organomegaly. PEG tube in place MUSCULOSKELETAL: No joint swelling or deformity. -EXTREMITIES: No cyanosis, clubbing, mild bilateral leg swelling. NEUROLOGICAL: Gross neurological examination did not reveal any focal deficits. SKIN: No rashes. no petechiae. - Labs CBC & Chem 7: 08/10/24 04:33 08/11/24 05:19 Labs: Abnormal Lab Results - Last 24 Hours (Table) 08/10/24 08/10/24 08/11/24 Range/Units 07:16 11:32 05:19 Chloride (98-107) mmol/L Carbon Dioxide (22-30) mmol/L Creatinine 0.42 L (0.52-1.04) mg/dL HDL Cholesterol 39.70 L (40.00-60.00) mg/dL Procalcitonin 1.60 H (0.02-0.50) ng/mL 08/11/24 Range/Units 05:19 Chloride 94 L (98-107) mmol/L Carbon Dioxide 34 H (22-30) mmol/L Creatinine 0.41 L (0.52-1.04) mg/dL HDL Cholesterol (40.00-60.00) mg/dL Procalcitonin (0.02-0.50) ng/mL Assessment and Plan Assessment: Left lower lobe pneumonia, versus bilateral basal pneumonia suspicious for aspiration pneumonia A-fib with RVR Acute hypoxic respiratory failure secondary to above Mild calorie protein malnutrition History of mouth cancer status post left show replacement, currently she uses PEG tube for nutrition COPD, not in acute acute issue History of pneumonia not on anticoagulation History of seizure Plan: Continue with antibiotics with IV vancomycin and ceftriaxone as per ID team Infectious disease consult regarding antibiotic management Continue with normal saline, currently on 75 mL/h Continue with oxygen therapy with close monitoring Follow-up culture results Pulmonary team consult Cardiology consult, continue with Eliquis and metoprolol echocardiogram reviewed Labs and medication were reviewed.. Continue same treatment. Continue with symptomatic treatment. Resume home medication. Monitor labs and vitals. DVT and GI prophylaxis. Further recommendations as per clinical course of the patient DVT prophylaxis: Eliquis GI Prophylaxis: Pepcid PT/OT: Pending Prognosis is guarded
[2024-08-11] MEDS: FUROSEMIDE 10 MG/ML 2 ML VIAL IV ONE (21:14)
[2024-08-12 01:14] LABS: Glucose,Whole Blood 165 mg/dL (70-110)
[2024-08-12] MEDS: DILTIAZEM 125 MG in SODIUM CHLORIDE 0.9% 100 ML IV SCH (02:55)
[2024-08-12] MEDS: DILTIAZEM DRIP BOLUS FROM BAG 1 MG SOLN IV ONE (02:55)
--- NOTE | 2024-08-12 04:53 | P.PN ---
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 Patient chest x-ray right lower lobe infiltrate. On today's evaluation that is 08/11/2023, patient has been afebrile, patient is breathing slightly comfortably however still requiring high flow oxygen and a BiPAP denies any chest pain or worsening cough no vomiting diarrhea any changes reported by the nursing staff. No CBC was done today creatinine 0.41 Objective - Vital Signs Vital signs: Vital Signs Temp 98.0 F 08/11/24 08:00 Pulse 90 08/11/24 12:02 Resp 10 L 08/11/24 08:00 BP 122/59 08/11/24 08:00 Pulse Ox 96 08/11/24 08:00 FiO2 90 08/11/24 11:54 Intake & Output 08/10/24 08/11/24 08/11/24 18:59 06:59 18:59 Intake Total 95.167 125 Output Total 2200 400 Balance -2104.833 -275 Weight 57.5 kg Intake: Intake, IV Titration 95.167 125 Amount Diltiazem 125 mg In 95.167 125 Sodium Chloride 0.9% 100 ml @ 10 MG/HR 10 mls/hr IV .[id number] [facility] Rx#: [id number] Output: Urine 2200 400 Other: Voiding Method External Catheter # Voids 2 - Exam GENERAL DESCRIPTION: Middle-age female up in bed in no distress RESPIRATORY SYSTEM: Unlabored breathing , coarse breath sounds at bases HEART: S1 S2 regular rate and rhythm , ABDOMEN: Soft , no tenderness EXTREMITIES: No edema feet - Labs CBC & Chem 7: 08/10/24 04:33 08/11/24 05:19 Labs: Abnormal Lab Results - Last 24 Hours (Table) 08/10/24 08/10/24 08/11/24 Range/Units 07:16 11:32 05:19 Chloride (98-107) mmol/L Carbon Dioxide (22-30) mmol/L Creatinine 0.42 L (0.52-1.04) mg/dL HDL Cholesterol 39.70 L (40.00-60.00) mg/dL Procalcitonin 1.60 H (0.02-0.50) ng/mL 08/11/24 Range/Units 05:19 Chloride 94 L (98-107) mmol/L Carbon Dioxide 34 H (22-30) mmol/L Creatinine 0.41 L (0.52-1.04) mg/dL HDL Cholesterol (40.00-60.00) mg/dL Procalcitonin (0.02-0.50) ng/mL Assessment and Plan (1) MRSA (methicillin resistant Staphylococcus aureus) infection Current Visit: Yes Status: Acute Code(s): A49.02 - METHICILLIN RESIS STAPH I NFECTION, UNSP SITE SNOMED Code(s): 849420705 (2) Allergy to sulfa drugs Current Visit: Yes Status: Acute Code(s): Z88.2 - ALLERGY STATUS TO SULFONAMIDES SNOMED Code(s): 74817335 (3) Failure of outpatient treatment Current Visit: Yes Status: Acute Code(s): Z78.9 - OTHER SPECIFIED HEALTH STATUS SNOMED Code(s): 314165630 (4) Pneumonia Current Visit: Yes Status: Acute Code(s): J18.9 - PNEUMONIA, UNSPECIFIED ORGANISM SNOMED Code(s): 967783747 Plan: 1patient presented hospital with increasing shortness of breath also have a cough bringing up some bloodstained sputum chest x-ray with a left lobe infiltrate patient did have elevated white count 28,000 with recent outpatient sputum culture positive for Streptococcus agalactiae MRSA and Morganella likely pathogen 2sulfa allergy that would limit the number of antibiotics safe to use 3-patient is afebrile and the patient white count is down to 16,000 as of yesterday no CBC was done today patient to continue with Eraxis along with Rocephin and vancomycin and monitor clinical course closely Family the bedside question was Dictation was produced using [employer] dictation software. please excuse any grammatical, word or spelling errors. Time with Patient: Less than 30
[2024-08-12 06:23] LABS: Basophils % (A) 0 %; Eosinophils # (A) 0.1 k/uL (0-0.7); Eosinophils % (A) 1 %; HCT 34.6 % (34.0-46.0); HGB 10.8 gm/dL (11.4-16.0); Hypochromasia Marked; Lymphocytes # (A) 0.8 k/uL (1.0-4.8); Lymphocytes % (A) 4 %; MCH 29.5 pg (25.0-35.0); MCHC 31.1 g/dL (31.0-37.0); MCV 94.9 fL (80.0-100.0); Mean Platelet Volume 8.8; Monocytes # (A) 1.7 k/uL (0-1.0); Monocytes % (A) 9 %; Neutrophils # (A) 16.1 k/uL (1.3-7.7); Neutrophils % (A) 85 %; Platelet Count 367 k/uL (150-450); RBC 3.65 m/uL (3.80-5.40); RDW 14.6 % (11.5-15.5); WBC 18.9 k/uL (3.8-10.6)
[2024-08-12 06:39] LABS: African American GFR (CKD) >90 (>60 ml/min/1.73 sqM); Blood Urea Nitrogen 13 mg/dL (7-17); Calcium 8.6 mg/dL (8.4-10.2); Chloride 93 mmol/L (98-107); Glucose 169 mg/dL (74-99); Non-African American GFR(CKD) >90 (>60 ml/min/1.73 sqM); Potassium 3.4 mmol/L (3.5-5.1); Sodium 136 mmol/L (137-145)
[2024-08-12 06:44] LABS: ABG Base Excess 10.9 mmol/L; ABG HCO3 39 mmol/L (21-25); ABG Oxygen Saturation 81.7 % (94-97); ABG PH 7.33 (7.35-7.45); ABG TCO2 42 mmol/L (19-24); Allen Test Performed? Yes
[2024-08-12 06:45] LABS: Anion Gap 7 mmol/L; Carbon Dioxide 36 mmol/L (22-30)
[2024-08-12 07:04] LABS: ABG PCO2 75 mmHg (35-45); ABG PO2 50 mmHg (83-108)
--- NOTE | 2024-08-12 07:05 | P.PN ---
Subjective Progress Note Date: 08/12/24 08/11/2023, the patient is being seen for a follow-up. Is a 63-year-old female patient with past medical history of oral cancer and previous radical neck dissection followed by radiation therapy and reconstructive surgery and the patient suffers from chronic dysphagia and the patient has PEG tube. The pat ient also has previous history of DVT/pulmonary embolism maintained on anticoagulation. She has history of atrial fibrillation, hypothyroidism and seizure disorders. For now, the patient is in the intensive care unit for an acute hypoxic respiratory failure. The patient is currently on Airvo at 60 L with an FiO2 of 90% %. Chest x-ray shows bilateral lower lobe consolidation and possibly some small effusions. Antibiotic coverage is with IV Eraxis, vancomycin and Rocephin. Sputum samples collected on 08/06/2024 was consistent with MRSA, Morganella morganii and strep agalactiae. The patient had developed significant leukocytosis which is downtrending and the white cell count from yesterday was down to 16. Patient also developed atrial fibrillation with rapid ventricular response over the past 24 to 48 hours. The patient based on that was started on Cardizem drip and she is already anticoagulated with Eliquis. She remains on Cardizem at 10 mg an hour. She is also on metoprolol 25 mg p.o. twice daily for rate control. The patient is also on oxygen and Airvo settings this morning is 6 L with an FiO2 of 90%. The patient has a J-tube for feeding receiving Jevity 1.5 at the rate of 40 cc an hour. The J-tube was replaced yesterday. This was done by general surgery. CAT scan of the abdomen done on 08/09/2024 showed that the jejunostomy tube was grossly intact. Nevertheless, it there was evidence of lower lobe consolidations bilaterally worse on the left. 08/12/2023, the patient is being seen for a follow-up. Condition is gradually compensated over the past 24 hours and the patient has become more hypoxic related to her pneumonia. Noted the patient was on high flow oxygen, Airvo 60 L with an FiO2 of 90%. Subsequently, she was given 100% nonrebreather facemask and the patient continued to have episodes of desaturation. At a later stage, overnight, the patient was placed on a BiPAP and currently she is on a BiPAP pressure of 15 over 10 cm of water with an FiO2 of 100%. Initially, this morning, she was still desaturating and her blood gas was obtained which showed a pH of 7.33 with a pCO2 of 74 and pO2 of 49. I attended on this patient immediately. I wanted to intubate the patient. However, I do acknowledge that this is going to be an extremely difficult intubation as the patient does not have any ability to open up her mouth due to chronic scarring in her neck muscles and scarring of her jaw and her neck is significantly scarred up and stiff related to previous radiation therapy. While adjusting the BiPAP mask, we improved the leaks and the pulse ox improved currently she is pulse oxing in order of 91 to 93%. Reviewed the chest x-ray from today shows diffuse bilateral airspace disease consistent with pneumonia. No evidence of any pneumothorax. The patient continues to have a congested cough. No significant sputum production. Despite his ongoing hypoxemia, she is breathing comfortably. Her current respiratory rate is in the mid 20s. She is still awake and communicating. No fever. No hemodynamic instability. She remains in atrial fibrillation. Antibiotic coverage remains unchanged and the patient remains on a combination of Rocephin and vancomycin and Eraxis. The fluid balance has been negative over the past 24 hours. The white cell count is at 18.10.8 and this is. Calcium level 6. The patient remains on DuoNeb nebulized treatments. In terms of her ongoing atrial fibrillation, she is on Cardizem drip at 15 mg an hour. She remains on anticoagulation with Eliquis. She is also on metoprololAt a dose of 25 mg p.o. twice a day. No hypotension. Hemodynamically stable. IV fluids are currently at KVO. Objective - Vital Signs Vital signs: Vital Signs Temp 98.4 F 08/12/24 04:00 Pulse 92 08/12/24 06:00 Resp 17 08/12/24 06:00 BP 136/72 08/12/24 06:00 Pulse Ox 93 L 08/12/24 06:00 FiO2 100 08/12/24 06:24 Intake & Output 08/11/24 08/11/24 08/12/24 06:59 18:59 06:59 Intake Total 382 271 8092.334 Output Total 400 300 675 Balance -275 585 871.334 Weight 57.5 kg 57.5 kg 56 kg Intake: IV 340 740 Anidulafungin 100 mg In 100 Sodium Chloride 0.9% 100 ml @ 84 mls/hr IVPB DAILY @1700 [facility] Rx#:[id number] Sodium Chloride 0.9% 1, 40 140 000 ml @ 20 mls/hr IV . Q24H [facility] Rx#:[id number] Vancomycin 1,000 mg In 250 500 Sodium Chloride 0.9% 250 ml @ 125 mls/hr IVPB Q8H [facility] Rx#:[id number] cefTRIAXone 2 gm In 50 Sodium Chloride 0.9% 50 ml @ 100 mls/hr IVPB Q24HR [facility] Rx#:[id number] Intake, IV Titration 125 125 6.334 Amount Diltiazem 125 mg In 125 125 Sodium Chloride 0.9% 100 ml @ 10 MG/HR 10 mls/hr IV .[id number] [facility] Rx#: [id number] Diltiazem 125 mg In 6.334 Sodium Chloride 0.9% 100 ml @ Per Protocol IV .Q0M [facility] Rx#:[id number] Tube Feeding 210 390 Other 210 410 Output: Urine 400 300 675 Other: Voiding Method External Catheter External Catheter Indwelling Catheter # Voids 2 2 1 - Exam GENERAL EXAM: Alert, 63-year-old female, on BiPAP 15/10 cm of water with an FiO2 of 100% and mild degree of respiratory distress. Not using accessory muscles of breathing. HEAD: Normocephalic and atraumatic EYES: Normal reaction of pupils, equal size. NOSE: Clear with pink turbinates. THROAT: No erythema or exudates. Edentulous, with previous reconstructive surgery. Unable to open her mouth as the patient has jaw dysfunction and scarring in her neck muscles. NECK: No masses, no JVD. Significant neck deformity related to radiation- induced scarring and previous neck surgery. CHEST: No chest wall deformity. LUNGS: Equal air entry with bilateral rhonchi and wheezing with left lower lobe inspiratory crackles. CVS: S1 and S2 normal with no audible murmur, irregular rhythm. No extra heart sounds ABDOMEN: No hepatosplenomegaly, active bowel sounds, no guarding or rigidity. There are two percutaneous feeding tubes. SPINE: No scoliosis or deformity SKIN: No rashes CENTRAL NERVOUS SYSTEM: No focal deficits, tone is normal in all 4 extremities. EXTREMITIES: There is no peripheral edema, clubbing, or cyanosis. Peripheral pulses are intact. - Labs CBC & Chem 7: 08/12/24 05:31 08/12/24 05:31 Labs: Abnormal Lab Results - Last 24 Hours (Table) 08/11/24 08/11/24 08/11/24 Range/Units 05:19 05:19 17:39 WBC (3.8-10.6) k/uL RBC (3.80-5.40) m/uL Hgb (11.4-16.0) gm/dL Neutrophils # (1.3-7.7) k/uL Lymphocytes # (1.0-4.8) k/uL Monocytes # (0-1.0) k/uL Sodium (137-145) mmol/L Potassium (3.5-5.1) mmol/L Chloride 94 L (98-107) mmol/L Carbon Dioxide 34 H (22-30) mmol/L Creatinine 0.42 L 0.41 L (0.52-1.04) mg/dL Glucose (74-99) mg/dL POC Glucose (mg/dL) 126 H (70-110) mg/dL 08/12/24 08/12/24 08/12/24 Range/Units 01:12 05:31 05:31 WBC 18.9 H (3.8-10.6) k/uL RBC 3.65 L (3.80-5.40) m/uL Hgb 10.8 L (11.4-16.0) gm/dL Neutrophils # 16.1 H (1.3-7.7) k/uL Lymphocytes # 0.8 L (1.0-4.8) k/uL Monocytes # 1.7 H (0-1.0) k/uL Sodium 136 L (137-145) mmol/L Potassium 3.4 L (3.5-5.1) mmol/L Chloride 93 L (98-107) mmol/L Carbon Dioxide 36 H (22-30) mmol/L Creatinine 0.39 L (0.52-1.04) mg/dL Glucose 169 H (74-99) mg/dL POC Glucose (mg/dL) 165 H (70-110) mg/dL Microbiology - Last 24 Hours (Table) 08/06/24 10:29 Blood Culture - Final Blood Assessment and Plan Plan: Acute hypoxic respiratory failure and the patient is currently on BiPAP at a pressure of 15 over 10 cm of water and FiO2 of 100%. Mild degree of respiratory acidosis. Ongoing hypoxemia and the most recent pulse ox is in the order of 93%. Chest x-ray showed diffuse bilateral pulmonary filtrates consistent with pneumonia. The patient also has a congested cough and mucous plugs/mucus inspissation is also expected. Ideally, the patient needs to be intubated. However, this is going to be an extremely difficult intubation because of the significant neck and oral deformities from previous treatment of a throat cancer. Bilateral lower lobe pneumonia, bacterial, likely related to aspiration, sputum sample obtained 08/01 and again on August 06, 2024 positive for MRSA, Morganella, and group B strep and Rosa. Failed outpatient treatment. The patient's pneumonia is polymicrobial. Remains on vancomycin, ceftriaxone and Eraxis, infectious disease on the case. Acute leukocytosis, improving Shortness of breath secondary to above Atrial fibrillation with a rapid ventricular response, Currently on Cardizem drip at 15 mg an hour. Anticoagulated with Eliquis, echocardiogram is pending History of recurrent aspiration pneumonia and MRSA pneumonia. 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 Nothing by mouth History of radiation pneumonitis Xerostomia History of DVT/PE, anticoagulated on Eliquis History of hypothyroidism History of seizure disorder Plan: Will keep the patient on the BiPAP, same settings Start Lasix 40 mg IV every 12 hours Will discuss the findings with anesthesia and general surgery. May need further assistance should there be intubation needed in this patient. Ideally, we may try to intubate this patient over the bronchoscope. May also consider emergency tracheostomy tube as I consider this a very difficult airway. I would like to have further discussion with the rest of the consultants and services prior to proceeding with any further manipulation of their airway such as intubation mechanical ventilation. Repeat the blood gas in few hours time Currently on a Cardizem drip, currently at 50 mg an hour Metoprolol 25 mg p.o. twice a day Anticoagulated with Eliquis Continue same antibiotic coverage includes a combination of Rocephin, vancomycin and Eraxis Continue bronchodilators Continue with Jevity tube feedings, the G-tube has been replaced Will continue to follow Condition is obviously critical. Will continue to follow make further recommendations based on progress. Evaluation was done more than 30 minutes. Time with Patient: Greater than 30
--- NOTE | 2024-08-12 07:43 | P.PN ---
Progress Note - Text Progress Note Date: 08/11/24 No acute events overnight. Limitations: no limitations General appearance: alert, in no apparent distress Head exam: Present: atraumatic, normocephalic, normal inspection ENT exam: Present: mucous membranes moist. Absent: normal exam, normal oropharynx Neck exam: Absent: normal inspection, tenderness, meningismus, lymphadenopathy Respiratory exam: Present: wheezes, rales, rhonchi, chest wall tenderness. Absent: normal lung sounds bilaterally, respiratory distress Cardiovascular Exam: Present: regular rate, normal rhythm, normal heart sounds. Absent: systolic murmur, diastolic murmur, rubs, gallop, clicks GI/Abdominal exam: Present: soft, normal bowel sounds. Absent: distended, tend erness, guarding, rebound, rigid Skin exam: Present: warm, dry, intact, normal color. Absent: rash 63 year old female with clogged jejunostomy tube and nausea -Attempted to flush jejunostomy tube which did not work -J tube exchanged bedside -Ok for Tube Feeds Darrius Wick DO [facility] [phone]
--- NOTE | 2024-08-12 07:47 | P.PN ---
Subjective This is a pleasant 63 years old female with past medical history of multiple medical problems. Patient called her PCP office of Dr. Anderson and talked to his nurse practitioner Lynnette from she sees in the office complaining from little shortness of breath for the last 4 to 5 days with some cough and phlegm Associated with left lateral chest pain about 7/10 that is worse with coughing and deep breath. Her nurse practitioner Lynnette asked her to get sputum sample and resulted back as MRSA so she got a call from the office to head to the emergency room Currently she is endorsing the same symptoms as above However she denies any specific GI/ symptoms no headache dizziness weakness or numbness She quit smoking years ago with no alcohol or illicit drugs as well She is not on oxygen at home She has a known history of mouth cancer s/p left-sided jaw replacement She does not eat but uses a PEG tube for feeding 2 weeks ago she saw her oncologist and Dr. gastelum her automatic hemmer and she was doing fine Patient has afebrile in the emergency room She was saturating 90s on 4 L oxygen via nasal cannula Blood pressure is soft On admission she has leukocytosis of 28,000. Will BMP and LFTs were unremarkable as well as INR proBNP is 248 Chest x-ray showing left lower lobe infiltrate suspicious for pneumonia Patient was started on IV vancomycin and Zosyn and normal saline with pulmonary and ID team consult 08/07/2023 Patient sitting up in bed looks similar to yesterday, complaining from some pain in her left side of the chest but it looks controlled and patient is not in distress No significant dyspnea or tachypnea, she can go to the bathroom by herself with no exertional dyspnea However her oxygen requirement increased from 4 L up to 10 L today. Blood pressure is borderline and patient says usually her blood pressure on the low side Repeat chest x-ray showing similar left lower lobe infiltrate. Her legs are swollen we will going to check ultrasound of the leg given risk factors although she does not have much symptoms Patient remains on IV fluids normal saline at 130 and IV antibiotics with IV vancomycin and ceftriaxone Patient already on Cymbalta, she is asking to start her BuSpar but she is not sure about the dose, is going to be resumed Analysis Internship consult is on for tube feeding 08/08 Patient is mildly tachypneic, not using accessory muscles of breathing, her oxygen requirement increased since yesterday to 10 to 11 L/min She has bilateral leg swelling, mild ultrasound of the leg is negative for DVT. Further workup including sputum culture and blood culture are pending. Blood pressure improved Remains on IV vancomycin and ceftriaxone IV fluid was lower dose 130 down to 75 mL/h Pro- Calcitonin is negative Resuming the care of the patient today 08/11 Patient respiratory status got worse and she was moved to the ICU. Currently she is awake alert but requires 60 L/min with 90% of FiO2 Abdomen soft, PEG tube is in place No headache or dizziness WBC is trending down to 16,000, hemoglobin down to two 9.7 Pro- Calcitonin increased to 1.6 and 1 extra dose of MiraLAX is added to her antibiotic Ejection fraction is [address] 70% CT of the abdomen pelvis showing nonobstructive lesion Patient currently covered with IV vancomycin and ceftriaxone and Eraxis, also patient developed A-fib with RVR and followed by fountain attendant, started on Eliquis at metoprolol also patient continued on aspirin 08/12 Patient currently remains in the ICU, her breathing function gets worse overnight, yesterday she had to be placed on nonrebreather, and Worsened currently and she was placed on BiPAP in the morning with a setting of 15/10 and FiO2 of 100% Patient herself is awake and alert, she says that her breathing is hard but similar to yesterday. She is saturating about 92% on this current BiPAP setting. She denies chest pain She still mildly tachycardic with heart rate 126 with A-fib and RVR, currently she has been followed by fountain attendant and getting Cardizem drip at 15 mg/h. Discussed the case with pulmonary service regarding her worsening send respiratory symptoms. Patient may require intubation patient is agreeable however because of her mild surgery will be very difficult situation. Therefore they will try to give her some more time before needed intervention. Repeat chest x-ray from this morning showing worsening pneumonia Yesterday pro- Calcitonin was worsened and her antibiotics were updated per ID team, currently on IV vancomycin, ceftriaxone and Eraxis. Also she is continued on Eliquis for new diagnosis of A-fib. Also she is on aspirin 81 mg, oral Active Medications Generic Name Dose Route Start Last Admin Trade Name Freq PRN Reason Stop Dose Admin Albuterol/Ipratropium 3 ml 08/09/24 16:00 08/11/24 20:25 Ipratropium-Albuterol 3 Ml Neb INHALATION Not Given RT-QID [facility] Apixaban 5 mg 08/07/24 09:00 08/11/24 21:14 Apixaban 5 Mg Tab PEG/G-TUBE 5 mg BID [facility] Administration Protocol Aspirin 81 mg 08/07/24 09:00 08/11/24 10:21 Aspirin 81 Mg PEG/G-TUBE 81 mg DAILY [facility] Administration Buspirone HCl 5 mg 08/07/24 16:00 08/11/24 22:51 Buspirone Hcl 5 Mg Tab PO 5 mg TID [facility] Administration Duloxetine HCl 30 mg 08/07/24 09:00 08/11/24 10:20 Duloxetine Hcl 30 Mg Capsule.Dr PO 30 mg DAILY [facility] Administration Famotidine 20 mg 08/07/24 09:00 08/11/24 21:18 Famotidine 20 Mg/2 Ml Vial IV 20 mg Q12HR [facility] Administration Gabapentin 900 mg 08/06/24 22:00 08/11/24 21:14 Gabapentin 300 Mg Cap PEG/G-TUBE 900 mg TID [facility] Administration Guaifenesin 200 mg 08/11/24 11:00 08/12/24 04:44 Guaifenesin Syrup 100mg/5ml 200 Mg/10 Ml Cup PO 200 mg Q4HR [facility] Administration Sodium Chloride 1,000 mls @ 20 mls/hr 08/06/24 12:15 08/12/24 01:15 Saline 0.9% IV 20 mls/hr .Q24H [facility] Administration Ceftriaxone Sodium 2 gm/ 50 mls @ 100 mls/hr 08/07/24 09:00 08/11/24 10:19 Sodium Chloride IVPB 100 mls/hr Q24HR [facility] Administration Protocol Vancomycin HCl 1,000 mg/ 250 mls @ 125 mls/hr 08/08/24 20:00 08/12/24 04:43 Sodium Chloride IVPB 125 mls/hr Q8H [facility] Administration Anidulafungin 100 mg/ Sodium 100 mls @ 84 mls/hr 08/10/24 17:00 08/11/24 17:37 Chloride IVPB 84 mls/hr DAILY@1700 [facility] Administration Protocol Diltiazem HCl 125 mg/ Sodium 125 mls @ 0 mls/hr 08/12/24 02:45 08/12/24 03:43 Chloride IV 15 mls/hr .Q0M [facility] 15 mls/hr Titration Protocol Per Protocol Levothyroxine Sodium 75 mcg 08/06/24 21:00 08/11/24 10:20 Levothyroxine 75 Mcg Tab PEG/G-TUBE 75 mcg DAILY [facility] Administration Metoprolol Tartrate 25 mg 08/10/24 23:30 08/12/24 04:44 Metoprolol Tartrate 25 Mg Tab PO 25 mg BID [facility] Administration Miscellaneous Information 1 each 08/06/24 12:21 Pneumonia Protocol Utilized 1 Each Misc PO ONCE PRN Per Protocol Miscellaneous Information 1 each 08/12/24 11:00 Vancomycin Trough Due 1 Each Misc MISCELLANE 08/12/24 11:01 ONCE ONE Nystatin 500,000 unit 08/07/24 09:00 08/11/24 21:16 Nystatin 100,000 Unit/Ml Susp 500,000 Unit/5 Ml Cup PO Not Given QID [facility] Protocol Ondansetron HCl 4 mg 08/08/24 22:01 Ondansetron 4 Mg/2 Ml Vial IVP Q6HR PRN Nausea And Vomiting Oxycodone HCl 15 mg 08/06/24 21:00 08/12/24 04:31 Oxycodone Hcl 5 Mg Tab PO Not Given Q4H [facility] Objective - Vital Signs Vital signs: Vital Signs Temp 98.4 F 08/12/24 04:00 Pulse 126 H 08/12/24 07:00 Resp 17 08/12/24 07:00 BP 126/82 08/12/24 07:00 Pulse Ox 96 08/12/24 07:00 FiO2 100 08/12/24 06:24 Intake & Output 08/11/24 08/12/24 08/12/24 18:59 06:59 18:59 Intake Total 885 1546.334 70 Output Total 300 675 25 Balance 585 871.334 45 Weight 57.5 kg 56 kg Intake: IV 340 740 20 Anidulafungin 100 mg In 100 Sodium Chloride 0.9% 100 ml @ 84 mls/hr IVPB DAILY @1700 [facility] Rx#:[id number] Sodium Chloride 0.9% 1, 40 140 20 000 ml @ 20 mls/hr IV . Q24H [facility] Rx#:[id number] Vancomycin 1,000 mg In 250 500 Sodium Chloride 0.9% 250 ml @ 125 mls/hr IVPB Q8H [facility] Rx#:[id number] cefTRIAXone 2 gm In 50 Sodium Chloride 0.9% 50 ml @ 100 mls/hr IVPB Q24HR [facility] Rx#:[id number] Intake, IV Titration 125 6.334 Amount Diltiazem 125 mg In 125 Sodium Chloride 0.9% 100 ml @ 10 MG/HR 10 mls/hr IV .[id number] [facility] Rx#: [id number] Diltiazem 125 mg In 6.334 Sodium Chloride 0.9% 100 ml @ Per Protocol IV .Q0M [facility] Rx#:[id number] Tube Feeding 210 390 50 Other 210 410 Output: Urine 300 675 25 Other: Voiding Method External Catheter Indwelling Catheter # Voids 2 1 - Exam GENERAL: The patient is alert and oriented x3, not in any acute distress. Well developed, well nourished. -HEENT: Pupils are round and equally reacting to light. EOMI. No scleral icterus. No conjunctival pallor. Normocephalic, atraumatic. No pharyngeal erythema. No thyromegaly. Healed scar of the left jaw surgery CARDIOVASCULAR: S1 and S2 present. No murmurs, rubs, or gallops. -PULMONARY: Chest is clear to auscultation, no wheezing , no crackles. Decreased breath sounds bilaterally -ABDOMEN: Soft, nontender, nondistended, normoactive bowel sounds. No palpable organomegaly. PEG tube in place MUSCULOSKELETAL: No joint swelling or deformity. -EXTREMITIES: No cyanosis, clubbing, mild bilateral leg swelling. NEUROLOGICAL: Gross neurological examination did not reveal any focal deficits. SKIN: No rashes. no petechiae. - Labs CBC & Chem 7: 08/12/24 05:31 08/12/24 05:31 Labs: Abnormal Lab Results - Last 24 Hours (Table) 08/11/24 08/11/24 08/12/24 Range/Units 05:19 17:39 01:12 WBC (3.8-10.6) k/uL RBC (3.80-5.40) m/uL Hgb (11.4-16.0) gm/dL Neutrophils # (1.3-7.7) k/uL Lymphocytes # (1.0-4.8) k/uL Monocytes # (0-1.0) k/uL ABG pH (7.35-7.45) ABG pCO2 (35-45) mmHg ABG pO2 (83-108) mmHg ABG HCO3 (21-25) mmol/L ABG Total CO2 (19-24) mmol/L ABG O2 Saturation (94-97) % Hemoglobin (11.4-16.0) gm/dL Sodium (137-145) mmol/L Potassium (3.5-5.1) mmol/L Chloride 94 L (98-107) mmol/L Carbon Dioxide 34 H (22-30) mmol/L Creatinine 0.41 L (0.52-1.04) mg/dL Glucose (74-99) mg/dL POC Glucose (mg/dL) 126 H 165 H (70-110) mg/dL 08/12/24 08/12/24 08/12/24 Range/Units 05:31 05:31 06:40 WBC 18.9 H (3.8-10.6) k/uL RBC 3.65 L (3.80-5.40) m/uL Hgb 10.8 L (11.4-16.0) gm/dL Neutrophils # 16.1 H (1.3-7.7) k/uL Lymphocytes # 0.8 L (1.0-4.8) k/uL Monocytes # 1.7 H (0-1.0) k/uL ABG pH 7.33 L (7.35-7.45) ABG pCO2 75 H* (35-45) mmHg ABG pO2 50 L* (83-108) mmHg ABG HCO3 39 H (21-25) mmol/L ABG Total CO2 42 H (19-24) mmol/L ABG O2 Saturation 81.7 L (94-97) % Hemoglobin 11.1 L (11.4-16.0) gm/dL Sodium 136 L (137-145) mmol/L Potassium 3.4 L (3.5-5.1) mmol/L Chloride 93 L (98-107) mmol/L Carbon Dioxide 36 H (22-30) mmol/L Creatinine 0.39 L (0.52-1.04) mg/dL Glucose 169 H (74-99) mg/dL POC Glucose (mg/dL) (70-110) mg/dL Microbiology - Last 24 Hours (Table) 08/06/24 10:29 Blood Culture - Final Blood Assessment and Plan Assessment: Left lower lobe pneumonia, versus bilateral basal pneumonia suspicious for aspiration pneumonia A-fib with RVR Acute hypoxic respiratory failure secondary to above, keep worsening requiring currently BiPAP. Patient might need intubation which is going to be very difficult Mild calorie protein malnutrition History of mouth cancer status post left show replacement, currently she uses PEG tube for nutrition COPD, not in acute acute issue History of pneumonia not on anticoagulation History of seizure Plan: Continue with antibiotics with IV vancomycin and ceftriaxone and eraxis per ID team Infectious disease consult regarding antibiotic management Patient currently off IV fluid status post small dose of IV Lasix yesterday Pulmonary team consult for possible pneumonia required intubation, may need backup from anesthesia and general surgery because is going to be difficult intubation, this was discussed with pulmonary team Continue with oxygen therapy with close monitoring Follow-up culture results Cardiology consult, continue with Eliquis and metoprolol echocardiogram reviewed Labs and medication were reviewed.. Continue same treatment. Continue with symptomatic treatment. Resume home medication. Monitor labs and vitals. DVT and GI prophylaxis. Further recommendations as per clinical course of the pat ient DVT prophylaxis: Eliquis GI Prophylaxis: Pepcid PT/OT: Pending Prognosis is guarded
--- NOTE | 2024-08-12 08:00 | XR ---
EXAMINATION TYPE: XR chest 1V portable DATE OF EXAM: 08/12/2024 CLINICAL HISTORY: Difficulty breathing progress study. TECHNIQUE: Single AP portable semiupright view of the chest is obtained. COMPARISON: Chest x-ray from one day earlier and older studies. FINDINGS: There are persistent bibasilar increased opacities on background chronic parenchymal golden es. There are new left Greater than right midlung opacities now seen. Stable cardiomegaly. Deformit y of left clavicle redemonstrated. Clip projecting over the upper trachea again seen. IMPRESSION: There are persistent bilateral small pleural effusions with worsening central vascular co ngestion and left greater than right mid to lower lung acute infiltrates and/or atelectasis. [facility], , 08/12/2024 7:57 AM
[2024-08-12] MEDS: FUROSEMIDE 10 MG/ML 2 ML VIAL IV SCH (08:39)
[2024-08-12] MEDS ORDERED: Potassium Replacement Protocol 1 EACH MISC MISCELLANE PRN (10:04)
[2024-08-12 11:09] LABS: VBG PH 7.46 (7.31-7.41)
[2024-08-12] MEDS: POTASSIUM BICARBONATE/CIT AC 20 MEQ TABLET.EFF PEG/G-TUBE SCH (11:53)
[2024-08-12 12:26] LABS: Glucose,Whole Blood 170 mg/dL (70-110)
[2024-08-12] MEDS: VANCOMYCIN TROUGH DUE 1 EACH MISC MISCELLANE ONE (12:59)
[2024-08-12] MEDS: AMIODARONE 360 MG in DEXTROSE 5% IN WATER 200 ML IV ONE (14:20)
[2024-08-12] MEDS: DEXTROSE 5% IN WATER 100 ML with AMIODARONE 150 MG IV ONE (14:20)
--- NOTE | 2024-08-12 14:25 | P.PN ---
Subjective History of Present Illness: The patient is a 63-year-old female, status post radical neck dissection for oral cancer and reconstructive surgery, history of PEG tube because of recurrent aspiration who was admitted to the hospital because of progressive dyspnea cough and was noted to have recurrent aspiration pneumonia. Yesterday she had an episode of atrial fibrillation with rapid ventricle response and is transferred to the ICU. She was hypotensive. She is back in sinus mechanism this morning and continues to be on IV Cardizem. She had a prior history of what appears to be DVT probably in her arm and has been anticoagulated. According to the family it is unclear if she had any arterial embolization from atrial fibrillation, she has been followed at [facility] and has been on anticoagulation since. She has no history of myocardial infarction or documented CHF. Her activity level is quite limited. She continues to be dyspneic and has a cough but she denies any chest discomfort, peripheral edema, PND or orthopnea. No evaluation of her systolic function is available to me. Her NT proBNP was elevated. She has no history of PND, orthopnea. According to her she had no recurrent atrial fibrillation since 6 years ago. She has no history of diabetes or hyperlipidemia. Medications: As an outpatient she is on Eliquis 5 mg twice a day, gabapentin, aspirin, Cymbalta 08/11 Patient seen and examined. Patient denies chest pain or pressure. Echocardiogram performed this morning which shows EF 65-70% with hyperdynamic function, no mitral regurgitation, [id number] tricuspid regurgitation. She was on Cardizem drip at 10 however this was decreased to 5 and is currently in sinus rhythm. She was not very symptomatic in terms of feeling her A. fib during the episode. She is tolerating metoprolol 25 twice a day. 08/12 Patient seen and examined. Patient with more respiratory distress. Her heart rate has been increased up in the low 110s consistently and then now more recently up in the 150s to 160s. She remains on Cardizem drip at 15. Lasix 20 mg IV twice a day was started today. Physical Examination: VS reviewed Head: Status post radical neck dissection and reconstruction of the jaw Eyes: Sclerae nonicteric. Neck: Good carotid upstroke, no bruit, Lungs: Bilateral rhonchi at the bases Heart: Regular rate and rhythm, S1-S2, no S3, no rub. Systolic ejection murmur. Abdomen: Soft nontender, positive bowel sounds no organomegaly, PEG tube in place. Extremities: No edema, intact distal pulses. EKG: On admission sinus mechanism with nonspecific ST-T wave changes with normal axis Impression: 1. Paroxysmal atrial fibrillation probably exacerbated by the lung status. Patient has been anticoagulated and had a remote history of atrial fibrillation 2. Recurrent aspiration pneumonia 3. Status post PEG tube placement 4. Elevation of NT proBNP with no clear symptoms or findings on examination of heart failure, could be exacerbated by the lung status 5. Status post oral cancer and radical neck dissection and reconstructive surgery 6. Leukocytosis improving 7. History of DVT Plan: Patient further episode of A. fib with RVR. She does have additional increasing dyspnea worsened respiratory status. Unclear if the respiratory distress is causing her heart rates to be less controlled or vice versa however we will attempt more aggressive heart rate control and start amiodarone with rhythm control. Continue Cardizem drip for now. Echo shows hyperdynamic left ventricular function and unclear how much of her respiratory distress is related to cardiac source. Monitor response of Lasix. Objective - Vital Signs Vital signs: Vital Signs Temp 98.3 F 08/12/24 08:00 Pulse 103 H 08/12/24 13:00 Resp 21 08/12/24 13:00 BP 114/79 08/12/24 13:00 Pulse Ox 88 L 08/12/24 13:00 FiO2 100 08/12/24 11:38 Intake & Output 08/11/24 08/12/24 08/12/24 18:59 06:59 18:59 Intake Total 885 1546.334 600 Output Total 300 675 695 Balance 585 871.334 -95 Weight 57.5 kg 56 kg Intake: IV 340 740 190 Anidulafungin 100 mg In 100 Sodium Chloride 0.9% 100 ml @ 84 mls/hr IVPB DAILY @1700 [facility] Rx#:[id number] Sodium Chloride 0.9% 1, 40 140 140 000 ml @ 20 mls/hr IV . Q24H [facility] Rx#:[id number] Vancomycin 1,000 mg In 250 500 Sodium Chloride 0.9% 250 ml @ 125 mls/hr IVPB Q8H [facility] Rx#:[id number] cefTRIAXone 2 gm In 50 50 Sodium Chloride 0.9% 50 ml @ 100 mls/hr IVPB Q24HR [facility] Rx#:[id number] Intake, IV Titration 125 6.334 Amount Diltiazem 125 mg In 125 Sodium Chloride 0.9% 100 ml @ 10 MG/HR 10 mls/hr IV .[id number] [facility] Rx#: [id number] Diltiazem 125 mg In 6.334 Sodium Chloride 0.9% 100 ml @ Per Protocol IV .Q0M [facility] Rx#:[id number] Tube Feeding 210 390 350 Other 210 410 60 Output: Urine 300 675 695 Other: Voiding Method External Catheter Indwelling Catheter # Voids 2 1 - Labs CBC & Chem 7: 08/12/24 05:31 08/12/24 05:31 Labs: Abnormal Lab Results - Last 24 Hours (Table) 08/11/24 08/12/24 08/12/24 Range/Units 17:39 01:12 05:31 WBC 18.9 H (3.8-10.6) k/uL RBC 3.65 L (3.80-5.40) m/uL Hgb 10.8 L (11.4-16.0) gm/dL Neutrophils # 16.1 H (1.3-7.7) k/uL Lymphocytes # 0.8 L (1.0-4.8) k/uL Monocytes # 1.7 H (0-1.0) k/uL ABG pH (7.35-7.45) ABG pCO2 (35-45) mmHg ABG pO2 (83-108) mmHg ABG HCO3 (21-25) mmol/L ABG Total CO2 (19-24) mmol/L ABG O2 Saturation (94-97) % VBG pH (7.31-7.41) VBG HCO3 (24-28) mmol/L Hemoglobin (11.4-16.0) gm/dL Sodium (137-145) mmol/L Potassium (3.5-5.1) mmol/L Chloride (98-107) mmol/L Carbon Dioxide (22-30) mmol/L Creatinine (0.52-1.04) mg/dL Glucose (74-99) mg/dL POC Glucose (mg/dL) 126 H 165 H (70-110) mg/dL 08/12/24 08/12/24 08/12/24 Range/Units 05:31 06:40 10:50 WBC (3.8-10.6) k/uL RBC (3.80-5.40) m/uL Hgb (11.4-16.0) gm/dL Neutrophils # (1.3-7.7) k/uL Lymphocytes # (1.0-4.8) k/uL Monocytes # (0-1.0) k/uL ABG pH 7.33 L (7.35-7.45) ABG pCO2 75 H* (35-45) mmHg ABG pO2 50 L* (83-108) mmHg ABG HCO3 39 H (21-25) mmol/L ABG Total CO2 42 H (19-24) mmol/L ABG O2 Saturation 81.7 L (94-97) % VBG pH 7.46 H (7.31-7.41) VBG HCO3 37 H (24-28) mmol/L Hemoglobin 11.1 L (11.4-16.0) gm/dL Sodium 136 L (137-145) mmol/L Potassium 3.4 L (3.5-5.1) mmol/L Chloride 93 L (98-107) mmol/L Carbon Dioxide 36 H (22-30) mmol/L Creatinine 0.39 L (0.52-1.04) mg/dL Glucose 169 H (74-99) mg/dL POC Glucose (mg/dL) (70-110) mg/dL 08/12/24 Range/Units 12:23 WBC (3.8-10.6) k/uL RBC (3.80-5.40) m/uL Hgb (11.4-16.0) gm/dL Neutrophils # (1.3-7.7) k/uL Lymphocytes # (1.0-4.8) k/uL Monocytes # (0-1.0) k/uL ABG pH (7.35-7.45) ABG pCO2 (35-45) mmHg ABG pO2 (83-108) mmHg ABG HCO3 (21-25) mmol/L ABG Total CO2 (19-24) mmol/L ABG O2 Saturation (94-97) % VBG pH (7.31-7.41) VBG HCO3 (24-28) mmol/L Hemoglobin (11.4-16.0) gm/dL Sodium (137-145) mmol/L Potassium (3.5-5.1) mmol/L Chloride (98-107) mmol/L Carbon Dioxide (22-30) mmol/L Creatinine (0.52-1.04) mg/dL Glucose (74-99) mg/dL POC Glucose (mg/dL) 170 H (70-110) mg/dL Microbiology - Last 24 Hours (Table) 08/06/24 10:29 Blood Culture - Final Blood
--- NOTE | 2024-08-12 15:25 | P.PN ---
Subjective Progress Note Date: 08/12/24 SURGICAL PROGRESS NOTE CHIEF COMPLAINT: Respiratory failure HISTORY OF PRESENT ILLNESS: Patient status post J-tube exchange at bedside by surgeon. She is tolerating tube feeds. Patient did have pain around the J-tube site earlier today. This has improved. Patient has been more short of breath and having respiratory distress requiring BiPAP. There are concerns that patient may need to be intubated. There are concerns that patient may be a difficult intubation due to her history of cancer of the tongue and neck with prior reconstruction surgery and chemo and radiation treatment. Patient on El iquis for A-fib. PHYSICAL EXAM: VITAL SIGNS: Reviewed. GENERAL: Shortness of breath. On BiPAP. HEENT: No sclera icterus. Extraocular movements grossly intact. Moist buccal mucosa. Head is atraumatic, normocephalic. ABDOMEN: Soft. Nondistended. Nontender. Nontender around J-tube site current ly. Skin is irritated. No drainage noted. PEG tube site also with some skin irritation. No drainage. NEUROLOGIC: Alert and oriented. Cranial nerves II through XII grossly intact. ASSESSMENT: 1. Clogged jejunostomy tube and nausea status post J-tube exchange 2. Respiratory distress with pneumonia 3. History of tongue and neck cancer status post chemo and radiation and reconstructive surgery PLAN: -Placed tube feeds on hold and hold p.m. Eliquis in case patient has difficult intubation and needs possible tracheostomy. Patient would be high risk for trach at this time due to her receiving tube feeds as well as the Eliquis. -Will order Triad cream to place on irritated skin around the J-tube Physician Day Care Provider note has been reviewed by physician. Signing provider agrees with the documented findings, assessment, and plan of care. Objective - Vital Signs Vital signs: Vital Signs Temp 98.3 F 08/12/24 08:00 Pulse 109 H 08/12/24 15:00 Resp 20 08/12/24 15:00 BP 119/75 08/12/24 15:00 Pulse Ox 93 L 08/12/24 15:00 FiO2 100 08/12/24 11:38 Intake & Output 08/11/24 08/12/24 08/12/24 18:59 06:59 18:59 Intake Total 885 1546.334 600 Output Total 300 675 695 Balance 585 871.334 -95 Weight 57.5 kg 56 kg Intake: IV 340 740 190 Anidulafungin 100 mg In 100 Sodium Chloride 0.9% 100 ml @ 84 mls/hr IVPB DAILY @1700 [facility] Rx#:[id number] Sodium Chloride 0.9% 1, 40 140 140 000 ml @ 20 mls/hr IV . Q24H [facility] Rx#:[id number] Vancomycin 1,000 mg In 250 500 Sodium Chloride 0.9% 250 ml @ 125 mls/hr IVPB Q8H [facility] Rx#:[id number] cefTRIAXone 2 gm In 50 50 Sodium Chloride 0.9% 50 ml @ 100 mls/hr IVPB Q24HR [facility] Rx#:[id number] Intake, IV Titration 125 6.334 Amount Diltiazem 125 mg In 125 Sodium Chloride 0.9% 100 ml @ 10 MG/HR 10 mls/hr IV .[id number] [facility] Rx#: [id number] Diltiazem 125 mg In 6.334 Sodium Chloride 0.9% 100 ml @ Per Protocol IV .Q0M [facility] Rx#:[id number] Tube Feeding 210 390 350 Other 210 410 60 Output: Urine 300 675 695 Other: Voiding Method External Catheter Indwelling Catheter # Voids 2 1 - Labs CBC & Chem 7: 08/12/24 05:31 08/12/24 05:31 Labs: Abnormal Lab Results - Last 24 Hours (Table) 08/11/24 08/12/24 08/12/24 Range/Units 17:39 01:12 05:31 WBC 18.9 H (3.8-10.6) k/uL RBC 3.65 L (3.80-5.40) m/uL Hgb 10.8 L (11.4-16.0) gm/dL Neutrophils # 16.1 H (1.3-7.7) k/uL Lymphocytes # 0.8 L (1.0-4.8) k/uL Monocytes # 1.7 H (0-1.0) k/uL ABG pH (7.35-7.45) ABG pCO2 (35-45) mmHg ABG pO2 (83-108) mmHg ABG HCO3 (21-25) mmol/L ABG Total CO2 (19-24) mmol/L ABG O2 Saturation (94-97) % VBG pH (7.31-7.41) VBG HCO3 (24-28) mmol/L Hemoglobin (11.4-16.0) gm/dL Sodium (137-145) mmol/L Potassium (3.5-5.1) mmol/L Chloride (98-107) mmol/L Carbon Dioxide (22-30) mmol/L Creatinine (0.52-1.04) mg/dL Glucose (74-99) mg/dL POC Glucose (mg/dL) 126 H 165 H (70-110) mg/dL 08/12/24 08/12/24 08/12/24 Range/Units 05:31 06:40 10:50 WBC (3.8-10.6) k/uL RBC (3.80-5.40) m/uL Hgb (11.4-16.0) gm/dL Neutrophils # (1.3-7.7) k/uL Lymphocytes # (1.0-4.8) k/uL Monocytes # (0-1.0) k/uL ABG pH 7.33 L (7.35-7.45) ABG pCO2 75 H* (35-45) mmHg ABG pO2 50 L* (83-108) mmHg ABG HCO3 39 H (21-25) mmol/L ABG Total CO2 42 H (19-24) mmol/L ABG O2 Saturation 81.7 L (94-97) % VBG pH 7.46 H (7.31-7.41) VBG HCO3 37 H (24-28) mmol/L Hemoglobin 11.1 L (11.4-16.0) gm/dL Sodium 136 L (137-145) mmol/L Potassium 3.4 L (3.5-5.1) mmol/L Chloride 93 L (98-107) mmol/L Carbon Dioxide 36 H (22-30) mmol/L Creatinine 0.39 L (0.52-1.04) mg/dL Glucose 169 H (74-99) mg/dL POC Glucose (mg/dL) (70-110) mg/dL 08/12/24 Range/Units 12:23 WBC (3.8-10.6) k/uL RBC (3.80-5.40) m/uL Hgb (11.4-16.0) gm/dL Neutrophils # (1.3-7.7) k/uL Lymphocytes # (1.0-4.8) k/uL Monocytes # (0-1.0) k/uL ABG pH (7.35-7.45) ABG pCO2 (35-45) mmHg ABG pO2 (83-108) mmHg ABG HCO3 (21-25) mmol/L ABG Total CO2 (19-24) mmol/L ABG O2 Saturation (94-97) % VBG pH (7.31-7.41) VBG HCO3 (24-28) mmol/L Hemoglobin (11.4-16.0) gm/dL Sodium (137-145) mmol/L Potassium (3.5-5.1) mmol/L Chloride (98-107) mmol/L Carbon Dioxide (22-30) mmol/L Creatinine (0.52-1.04) mg/dL Glucose (74-99) mg/dL POC Glucose (mg/dL) 170 H (70-110) mg/dL Microbiology - Last 24 Hours (Table) 08/06/24 10:29 Blood Culture - Final Blood
[2024-08-12] MEDS: ONDANSETRON 4 MG/2 ML VIAL IVP PRN (15:57)
[2024-08-12] MEDS: NOREPINEPHRINE 4 MG in SODIUM CHLORIDE 0.9% 250 ML IV SCH (16:45)
--- NOTE | 2024-08-12 17:25 | XR ---
EXAMINATION TYPE: XR chest 1V portable DATE OF EXAM: 08/12/2024 5:15 PM COMPARISON: Chest radiographs from 08/12/2024 CLINICAL INDICATION: Female, 63 years old with history of assess tubes; TECHNIQUE: XR chest 1V portable Frontal view of the chest. FINDINGS: Lungs/Pleura: Multifocal airspace opacities. There is remains blunting of the left costophrenic angle with consolidation and air bronchograms in the left lung base. No evidence of pneumothorax or pleura l effusion. Pulmonary vascularity: Unremarkable. Heart/mediastinum: Cardiomediastinal silhouette is unremarkable. Musculoskeletal: No acute osseous pathology. Other findings: None Lines/Tubes: Endotracheal tube with distal tip 3.5 cm above the myranda. PEG tube projecting over the gastric lumen in the upper abdomen. IMPRESSION: 1. Endotracheal tube above the myranda. 2. Multifocal airspace opacities with consolidation of the left lung base. Left pleural effusion. 3. PEG tube present projecting over the left upper abdomen. [facility], , 08/12/2024 5:23 PM
[2024-08-12 17:35] LABS: ABG Base Excess 10.8 mmol/L; ABG HCO3 38 mmol/L (21-25); ABG Oxygen Saturation 95.5 % (94-97); ABG PCO2 66 mmHg (35-45); ABG PH 7.37 (7.35-7.45); ABG PO2 78 mmHg (83-108); ABG TCO2 40 mmol/L (19-24)
[2024-08-12 17:42] LABS: Allen Test Performed? no
[2024-08-12] MEDS: NOREPINEPHRINE 8 MG in SODIUM CHLORIDE 0.9% 250 ML IV SCH (18:04)
--- NOTE | 2024-08-12 20:13 | P.PCN ---
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 As such, the patient has significant anatomic deformity with scarring of the neck. She is edentulous. Unable to fully open her mouth due to chronic scarring and radiation-induced damage to her neck. The patient is currently suffering from bilateral pneumonia and the patient was being supported with a BiPAP. While being on a BiPAP, the patient developed an episode of aspiration and accordingly she had worsening and hypoxemia. Pulse ox dropped in the low 50s. She gradually recovered and at the time of intubation, her pulse ox was in the order of 86 to 87% on Airvo 60 L with an FiO2 of 90% and the 100% nonrebreather facemask. Accordingly, decision was made to intubate the patient. Intubation process was done in the intensive care unit. Anesthetic agents was administered by STATEMENT REQUEST CLERK and the attending anesthesiologist. Initially, I performed a flexible bronchoscopy while the patient being awake. Lidocaine was applied to the left nostril and posterior oropharynx. The patient was able to tolerate the bronchoscopy reasonably well. I inserted the flexible bronchoscope through the left nostril and gradually advanced into the upper airway. Copious amount of respiratory secretions were present in the posterior pharynx and larynx and covering the epiglottis and the cords. The upper airways were cleared from all those respiratory secretions. I was able to identify the vocal cords and I was able to pass the flexible bronchoscope past the vocal cords into the upper trachea. A quick airway inspection was done and it showed copious amounts of purulent respiratory secretions throughout the airways. The airways were visualized including the main trachea, bilateral mainstem bronchi, right upper lobe bronchus, bronchus intermedius and the right middle lobe bronchus and the right lower lobe bronchus and examination of the left side include left upper lobe bronchus and the left lower lobe bronchus and the left mainstem bronchus. The flexible bronchoscope was removed once the respiratory secretions were cleared. Subsequently, over fiberoptic bronchoscopy, I was able to insert a #7 orotracheal tube into the trachea. This intubation was done orally with fiberoptic bronchoscopy guidance. The fiberoptic bronchoscope was inserted through the mouth, advanced into the upper airway and the vocal cords were identified and the patient was initially intubated with the flexible bronchoscope and subsequently a #7 orotracheal tube was threaded over the bronchoscope into the trachea. The ET tube was placed around 2 cm above the myranda. The orotracheal tube was connected to the mechanical ventilator. Oxygenation and appropriate ventilation was restored. No complications. Central line insertion Indication: Hemodynamic monitoring/Intravenous access. A time-out was completed verifying correct patient, procedure, site, positioning, and implant(s) or special equipment if applicable. The patient was placed in a dependent position appropriate for triple lumen catheter placement based on the vein to be cannulated. The patient's right femoral area was prepped and draped in sterile fashion. 1% Lidocaine was used to anesthetize the surrounding skin area. A triple lumen 9F Cordis catheter was introduced into the femoral vein using Seldinger technique. The catheter was threaded smoothly over the guide wire and appropriate blood return was obtained. Each lumen of the catheter was evacuated of air and flushed with sterile saline. The catheter was then sutured in place to the skin and a sterile dressing applied. Perfusion to the extremity distal to the point of catheter insertion was checked and found to be adequate. Arterial line insertion Indication: Hemodynamic monitoring. A time-out was completed verifying correct patient, procedure, site, positioning, and implant(s) or special equipment if applicable. The patients right groin was prepped and draped in sterile fashion. 1% Lidocaine was used to anesthetize the area. An 18G Arrow arterial line was introduced into the right femoral artery. The catheter was threaded over the guide wire and the needle was removed with appropriate pulsatile blood return. Blood loss was minimal. The catheter was then sutured in place to the skin and a sterile dressing applied. Perfusion to the extremity distal to the point of catheter insertion was checked and found to be adequate. The patient tolerated the procedure well and there were no complications.
[2024-08-12] MEDS: CHLORHEXIDINE GLUCONATE 15 ML CUP MUCOUS MEM SCH (20:51)
[2024-08-12] MEDS: AMIODARONE 450 MG in DEXTROSE 5% IN WATER 250 ML IV SCH (20:52)
[2024-08-13 03:16] LABS: Glucose,Whole Blood 148 mg/dL (70-110)
[2024-08-13 03:32] LABS: Basophils % (A) 0 %; Eosinophils % (A) 0 %; HCT 33.7 % (34.0-46.0); HGB 10.3 gm/dL (11.4-16.0); Hypochromasia Moderate; Lymphocytes # (A) 1.1 k/uL (1.0-4.8); Lymphocytes % (A) 5 %; MCH 28.9 pg (25.0-35.0); MCHC 30.7 g/dL (31.0-37.0); MCV 94.1 fL (80.0-100.0); Mean Platelet Volume 9.6; Monocytes # (A) 0.9 k/uL (0-1.0); Monocytes % (A) 4 %; Neutrophils # (A) 18.8 k/uL (1.3-7.7); Neutrophils % (A) 89 %; Platelet Count 427 k/uL (150-450); RBC 3.58 m/uL (3.80-5.40); WBC 21.1 k/uL (3.8-10.6)
[2024-08-13 03:38] LABS: African American GFR (CKD) >90 (>60 ml/min/1.73 sqM); Anion Gap 4 mmol/L; Blood Urea Nitrogen 13 mg/dL (7-17); Calcium 8.1 mg/dL (8.4-10.2); Carbon Dioxide 37 mmol/L (22-30); Chloride 97 mmol/L (98-107); Glucose 147 mg/dL (74-99); Non-African American GFR(CKD) >90 (>60 ml/min/1.73 sqM); Potassium 3.2 mmol/L (3.5-5.1); Sodium 138 mmol/L (137-145)
[2024-08-13] MEDS: POTASSIUM CHLORIDE 20 MEQ in WATER FOR INJECTION 1 100ML.BAG IVPB SCH (04:18)
[2024-08-13 04:53] LABS: ABG HCO3 38 mmol/L (21-25); ABG Oxygen Saturation 97.6 % (94-97); ABG PCO2 54 mmHg (35-45); ABG PH 7.45 (7.35-7.45); ABG PO2 91 mmHg (83-108); ABG TCO2 39 mmol/L (19-24)
[2024-08-13 05:46] LABS: Allen Test Performed? NO
[2024-08-13 06:46] LABS: Glucose,Whole Blood 137 mg/dL (70-110)
--- NOTE | 2024-08-13 07:53 | P.PN ---
Subjective This is a pleasant 63 years old female with past medical history of multiple medical problems. Patient called her PCP office of Dr. Anderson and talked to his nurse practitioner Lynnette from she sees in the office complaining from little shortness of breath for the last 4 to 5 days with some cough and phlegm Associated with left lateral chest pain about 7/10 that is worse with coughing and deep breath. Her nurse practitioner Lynnette asked her to get sputum sample and resulted back as MRSA so she got a call from the office to head to the emergency room Currently she is endorsing the same symptoms as above However she denies any specific GI/ symptoms no headache dizziness weakness or numbness She quit smoking years ago with no alcohol or illicit drugs as well She is not on oxygen at home She has a known history of mouth cancer s/p left-sided jaw replacement She does not eat but uses a PEG tube for feeding 2 weeks ago she saw her oncologist and Dr. gastelum her parole or probation officer and she was doing fine Patient has afebrile in the emergency room She was saturating 90s on 4 L oxygen via nasal cannula Blood pressure is soft On admission she has leukocytosis of 28,000. Will BMP and LFTs were unremarkable as well as INR proBNP is 248 Chest x-ray showing left lower lobe infiltrate suspicious for pneumonia Patient was started on IV vancomycin and Zosyn and normal saline with pulmonary and ID team consult 08/07/2023 Patient sitting up in bed looks similar to yesterday, complaining from some pain in her left side of the chest but it looks controlled and patient is not in distress No significant dyspnea or tachypnea, she can go to the bathroom by herself with no exertional dyspnea However her oxygen requirement increased from 4 L up to 10 L today. Blood pressure is borderline and patient says usually her blood pressure on the low side Repeat chest x-ray showing similar left lower lobe infiltrate. Her legs are swollen we will going to check ultrasound of the leg given risk factors although she does not have much symptoms Patient remains on IV fluids normal saline at 130 and IV antibiotics with IV vancomycin and ceftriaxone Patient already on Cymbalta, she is asking to start her BuSpar but she is not sure about the dose, is going to be resumed Acetylene Burner consult is on for tube feeding 08/08 Patient is mildly tachypneic, not using accessory muscles of breathing, her oxygen requirement increased since yesterday to 10 to 11 L/min She has bilateral leg swelling, mild ultrasound of the leg is negative for DVT. Further workup including sputum culture and blood culture are pending. Blood pressure improved Remains on IV vancomycin and ceftriaxone IV fluid was lower dose 130 down to 75 mL/h Pro- Calcitonin is negative Resuming the care of the patient today 08/11 Patient respiratory status got worse and she was moved to the ICU. Currently she is awake alert but requires 60 L/min with 90% of FiO2 Abdomen soft, PEG tube is in place No headache or dizziness WBC is trending down to 16,000, hemoglobin down to two 9.7 Pro- Calcitonin increased to 1.6 and 1 extra dose of MiraLAX is added to her antibiotic Ejection fraction is 65 to 70% CT of the abdomen pelvis showing nonobstructive lesion Patient currently covered with IV vancomycin and ceftriaxone and Eraxis, also patient developed A-fib with RVR and followed by account manager sales representative, started on Eliquis at metoprolol also patient continued on aspirin 08/12 Patient currently remains in the ICU, her breathing function gets worse overnight, yesterday she had to be placed on nonrebreather, and Worsened currently and she was placed on BiPAP in the morning with a setting of 15/10 and FiO2 of 100% Patient herself is awake and alert, she says that her breathing is hard but similar to yesterday. She is saturating about 92% on this current BiPAP setting. She denies chest pain She still mildly tachycardic with heart rate 126 with A-fib and RVR, currently she has been followed by account manager sales representative and getting Cardizem drip at 15 mg/h. Discussed the case with pulmonary service regarding her worsening send respiratory symptoms. Patient may require intubation patient is agreeable however because of her mild surgery will be very difficult situation. Therefore they will try to give her some more time before needed intervention. Repeat chest x-ray from this morning showing worsening pneumonia Yesterday pro- Calcitonin was worsened and her antibiotics were updated per ID team, currently on IV vancomycin, ceftriaxone and Eraxis. Also she is continued on Eliquis for new diagnosis of A-fib. Also she is on aspirin 81 mg, oral 1/8 Yesterday night patient still complaining from respiratory distress had to be intubated and currently she is on mechanical ventilation. Her blood pressure is stable and she is afebrile. Labs showing worsening leukocytosis to 21,000, hemoglobin slightly less than 10.3 Patient remains on broad-spectrum antibiotics with IV vancomycin,Ceftriaxone and Eraxis She is also on amiodarone drip, Eliquis 5 mg twice daily and aspirin 81 mg. Active Medications Generic Name Dose Route Start Last Admin Trade Name Freq PRN Reason Stop Dose Admin Albuterol/Ipratropium 3 ml 08/09/24 16:00 08/12/24 20:22 Ipratropium-Albuterol 3 Ml Neb INHALATION 3 ml RT-QID BLAKE Administration Apixaban 5 mg 08/07/24 09:00 08/12/24 20:09 Apixaban 5 Mg Tab PEG/G-TUBE Not Given BID BLAKE Protocol Aspirin 81 mg 08/07/24 09:00 08/12/24 08:39 Aspirin 81 Mg PEG/G-TUBE 81 mg DAILY BLAKE Administration Buspirone HCl 5 mg 08/07/24 16:00 08/12/24 22:51 Buspirone Hcl 5 Mg Tab PO 5 mg TID BLAKE Administration Chlorhexidine Gluconate 15 ml 08/12/24 21:00 08/12/24 20:51 Chlorhexidine Gluconate 15 Ml Cup MUCOUS MEM 15 ml BID BLAKE Administration Duloxetine HCl 30 mg 08/07/24 09:00 08/12/24 08:39 Duloxetine Hcl 30 Mg Capsule.Dr PO 30 mg DAILY BLAKE Administration Famotidine 20 mg 08/07/24 09:00 08/12/24 21:02 Famotidine 20 Mg/2 Ml Vial IV 20 mg Q12HR BLAKE Administration Furosemide 20 mg 08/12/24 09:00 08/12/24 20:51 Furosemide 10 Mg/Ml 2 Ml Vial IV 20 mg Q12HR BLAKE Administration Gabapentin 900 mg 08/06/24 22:00 08/12/24 22:51 Gabapentin 300 Mg Cap PEG/G-TUBE 900 mg TID BLAKE Administration Guaifenesin 200 mg 08/11/24 11:00 08/13/24 04:18 Guaifenesin Syrup 100mg/5ml 200 Mg/10 Ml Cup PO 200 mg Q4HR BLAKE Administration Sodium Chloride 1,000 mls @ 20 mls/hr 08/06/24 12:15 08/13/24 01:15 Saline 0.9% IV 20 mls/hr .Q24H BLAKE Administration Ceftriaxone Sodium 2 gm/ 50 mls @ 100 mls/hr 08/07/24 09:00 08/12/24 08:38 Sodium Chloride IVPB 100 mls/hr Q24HR BLAKE Administration Protocol Vancomycin HCl 1,000 mg/ 250 mls @ 125 mls/hr 08/08/24 20:00 08/13/24 04:18 Sodium Chloride IVPB 125 mls/hr Q8H BLAKE Administration Anidulafungin 100 mg/ Sodium 100 mls @ 84 mls/hr 08/10/24 17:00 08/12/24 17:47 Chloride IVPB 84 mls/hr DAILY@1700 BLAKE Administration Protocol Diltiazem HCl 125 mg/ Sodium 125 mls @ 0 mls/hr 08/12/24 02:45 08/13/24 00:00 Chloride IV 5 mls/hr .Q0M BLAKE 5 mls/hr Administration Protocol Per Protocol Amiodarone HCl 450 mg/ 250 mls @ 16.667 mls/hr 08/12/24 20:00 08/12/24 20:52 Dextrose/Water IV 08/13/24 13:59 0.5 mg/min .Q15H BLAKE 16.667 mls/hr Administration Protocol 0.5 MG/MIN Norepinephrine Bitartrate 8 mg 258 mls @ 3.251 mls/hr 08/12/24 16:45 08/13/24 07:10 / Sodium Chloride IV 0.15 mcg/kg/min .Q24H BLAKE 16.254 mls/hr Administration Protocol 0.03 MCG/KG/MIN Propofol 1,000 mg/ IV Solution 100 mls @ 5.04 mls/hr 08/12/24 20:00 08/13/24 07:12 IV 35 mcg/kg/min .[id number] BLAKE 11.76 mls/hr Administration Protocol 15 MCG/KG/MIN Potassium Chloride 20 meq/ IV 100 mls @ 50 mls/hr 08/13/24 04:15 08/13/24 06:51 Solution IVPB 08/13/24 08:14 50 mls/hr Q2H BLAKE Administration Protocol Levothyroxine Sodium 75 mcg 08/06/24 21:00 08/12/24 08:39 Levothyroxine 75 Mcg Tab PEG/G-TUBE 75 mcg DAILY BLAKE Administration Metoprolol Tartrate 25 mg 08/10/24 23:30 08/12/24 20:51 Metoprolol Tartrate 25 Mg Tab PO 25 mg BID BLAKE Administration Miscellaneous Information 1 each 08/06/24 12:21 Pneumonia Protocol Utilized 1 Each Misc PO ONCE PRN Per Protocol Miscellaneous Information 1 each 08/12/24 10:04 Potassium Replacement Protocol 1 Each Misc MISCELLANE DAILY PRN Per Protocol Protocol Nystatin 500,000 unit 08/07/24 09:00 08/12/24 22:51 Nystatin 100,000 Unit/Ml Susp 500,000 Unit/5 Ml Cup PO 500,000 unit QID BLAKE Administration Protocol Ondansetron HCl 4 mg 08/08/24 22:01 08/12/24 15:57 Ondansetron 4 Mg/2 Ml Vial IVP 4 mg Q6HR PRN Administration Nausea And Vomiting Oxycodone HCl 15 mg 08/06/24 21:00 08/13/24 05:33 Oxycodone Hcl 5 Mg Tab PO 15 mg Q4H BLAKE Administration Objective - Vital Signs Vital signs: Vital Signs Temp 98.6 F 08/13/24 04:00 Pulse 96 08/13/24 07:00 Resp 16 08/13/24 07:00 BP 102/48 08/12/24 23:15 Pulse Ox 99 08/13/24 07:00 FiO2 70 08/13/24 04:00 Intake & Output 08/12/24 08/13/24 08/13/24 18:59 06:59 18:59 Intake Total 2726.086 4633.991 176.941 Output Total 860 745 30 Balance 060.889 2480.991 146.941 Weight 60.7 kg Intake: IV 800 1700 100 Anidulafungin 100 mg In 100 Sodium Chloride 0.9% 100 ml @ 84 mls/hr IVPB DAILY @1700 BLAKE Rx#:[id number] Sodium Chloride 0.9% 1, 400 1200 100 000 ml @ 20 mls/hr IV . Q24H BLAKE Rx#:[id number] Vancomycin 1,000 mg In 250 500 Sodium Chloride 0.9% 250 ml @ 125 mls/hr IVPB Q8H BLAKE Rx#:[id number] cefTRIAXone 2 gm In 50 Sodium Chloride 0.9% 50 ml @ 100 mls/hr IVPB Q24HR BLAKE Rx#:[id number] Intake, IV Titration 124.600 444.991 76.941 Amount Diltiazem 125 mg In 118.666 125 Sodium Chloride 0.9% 100 ml @ Per Protocol IV .Q0M BLAKE Rx#:[id number] Norepinephrine 8 mg In 0.054 241.647 6.773 Sodium Chloride 0.9% 250 ml @ 0.03 MCG/KG/MIN 3. 251 mls/hr IV .Q24H BLAKE Rx#:[id number] propofoL 1,000 mg In 5.88 78.344 70.168 Empty Bag 1 bag @ 15 MCG/ KG/MIN 5.04 mls/hr IV . [id number] BLAKE Rx#:[id number] Tube Feeding 410 Other 60 Output: Urine 860 745 30 Other: Voiding Method Indwelling Catheter Indwelling Catheter ABP, PAP, CO, CI - Last Documented Arterial Blood Pressure 116/59 - Labs CBC & Chem 7: 08/13/24 03:16 08/13/24 03:16 Labs: Abnormal Lab Results - Last 24 Hours (Table) 08/12/24 08/12/24 08/12/24 Range/Units 10:50 12:23 17:33 WBC (3.8-10.6) k/uL RBC (3.80-5.40) m/uL Hgb (11.4-16.0) gm/dL Hct (34.0-46.0) % MCHC (31.0-37.0) g/dL Neutrophils # (1.3-7.7) k/uL ABG pCO2 66 H (35-45) mmHg ABG pO2 78 L (83-108) mmHg ABG HCO3 38 H (21-25) mmol/L ABG Total CO2 40 H (19-24) mmol/L ABG O2 Saturation (94-97) % VBG pH 7.46 H (7.31-7.41) VBG HCO3 37 H (24-28) mmol/L Hemoglobin 10.9 L (11.4-16.0) gm/dL Potassium (3.5-5.1) mmol/L Chloride (98-107) mmol/L Carbon Dioxide (22-30) mmol/L Creatinine (0.52-1.04) mg/dL Glucose (74-99) mg/dL POC Glucose (mg/dL) 170 H (70-110) mg/dL Calcium (8.4-10.2) mg/dL 08/13/24 08/13/24 08/13/24 Range/Units 03:15 03:16 03:16 WBC 21.1 H (3.8-10.6) k/uL RBC 3.58 L (3.80-5.40) m/uL Hgb 10.3 L (11.4-16.0) gm/dL Hct 33.7 L (34.0-46.0) % MCHC 30.7 L (31.0-37.0) g/dL Neutrophils # 18.8 H (1.3-7.7) k/uL ABG pCO2 (35-45) mmHg ABG pO2 (83-108) mmHg ABG HCO3 (21-25) mmol/L ABG Total CO2 (19-24) mmol/L ABG O2 Saturation (94-97) % VBG pH (7.31-7.41) VBG HCO3 (24-28) mmol/L Hemoglobin (11.4-16.0) gm/dL Potassium 3.2 L (3.5-5.1) mmol/L Chloride 97 L (98-107) mmol/L Carbon Dioxide 37 H (22-30) mmol/L Creatinine 0.42 L (0.52-1.04) mg/dL Glucose 147 H (74-99) mg/dL POC Glucose (mg/dL) 148 H (70-110) mg/dL Calcium 8.1 L (8.4-10.2) mg/dL 08/13/24 08/13/24 Range/Units 04:52 06:45 WBC (3.8-10.6) k/uL RBC (3.80-5.40) m/uL Hgb (11.4-16.0) gm/dL Hct (34.0-46.0) % MCHC (31.0-37.0) g/dL Neutrophils # (1.3-7.7) k/uL ABG pCO2 54 H (35-45) mmHg ABG pO2 (83-108) mmHg ABG HCO3 38 H (21-25) mmol/L ABG Total CO2 39 H (19-24) mmol/L ABG O2 Saturation 97.6 H (94-97) % VBG pH (7.31-7.41) VBG HCO3 (24-28) mmol/L Hemoglobin 10.2 L (11.4-16.0) gm/dL Potassium (3.5-5.1) mmol/L Chloride (98-107) mmol/L Carbon Dioxide (22-30) mmol/L Creatinine (0.52-1.04) mg/dL Glucose (74-99) mg/dL POC Glucose (mg/dL) 137 H (70-110) mg/dL Calcium (8.4-10.2) mg/dL Microbiology - Last 24 Hours (Table) 08/12/24 17:00 Gram Stain - Preliminary Sputum 08/11/24 12:31 Blood Culture - Preliminary Blood Assessment and Plan Assessment: Left lower lobe pneumonia, versus bilateral basal pneumonia suspicious for aspiration pneumonia A-fib with RVR Acute hypoxic respiratory failure secondary to above, status post intubation and mechanical ventilation on 08/12 t Mild calorie protein malnutrition History of mouth cancer status post left show replacement, currently she uses PEG tube for nutrition COPD, not in acute acute issue History of pneumonia not on anticoagulation History of seizure Plan: Continue with antibiotics with IV vancomycin and ceftriaxone and eraxis per ID team Infectious disease consult regarding antibiotic management Patient currently off IV fluid status post small dose of IV Lasix yesterday Pulmonary team consult for possible pneumonia required intubation, may need backup from anesthesia and general surgery because is going to be difficult intubation, this was discussed with pulmonary team Continue with oxygen therapy with close monitoring Follow-up culture results Cardiology consult, continue with Eliquis and metoprolol echocardiogram reviewed Labs and medication were reviewed.. Continue same treatment. Continue with symptomatic treatment. Resume home medication. Monitor labs and vitals. DVT and GI prophylaxis. Further recommendations as per clinical course of the patient DVT prophylaxis: Eliquis GI Prophylaxis: Pepcid PT/OT: Pending Prognosis is guarded
--- NOTE | 2024-08-13 08:08 | XR ---
EXAMINATION TYPE: XR chest 1V portable DATE OF EXAM: 08/13/2024 CLINICAL HISTORY: Difficulty breathing progress study. TECHNIQUE: Single AP portable semiupright view of the chest is obtained. COMPARISON: Chest x-ray from one day earlier and older studies. FINDINGS: Stable endotracheal tube. There are persistent bibasilar increased opacities on background chronic parenchymal change and left apical focal pleural/parenchymal thickening. There are persistent left Greater than right midlung op acities now seen. Stable cardiomegaly and left sided volume loss. Deformity of left clavicle redemon strated. Clip projecting over the upper trachea again seen. IMPRESSION: There are persistent bilateral small pleural effusions with continued central vascular co ngestion and left greater than right mid to lower lung acute infiltrates and/or atelectasis. [facility], , 08/13/2024 8:06 AM
[2024-08-13] MEDS: PIPERACILLIN-TAZOBACTAM 3.375 GM in SODIUM CHLORIDE 0.9% 100 ML IVPB SCH (09:22)
[2024-08-13] MEDS ORDERED: ZINC OXIDE 20% OINT 28.4 GM TUBE TOPICAL PRN (09:47)
--- NOTE | 2024-08-13 10:09 | P.PN ---
Subjective Progress Note Date: 08/13/24 08/11/2023, the patient is being seen for a follow-up. Is a 63-year-old female patient with past medical history of oral cancer and previous radical neck dissection followed by radiation therapy and reconstructive surgery and the patient suffers from chronic dysphagia and the patient has PEG tube. The pat ient also has previous history of DVT/pulmonary embolism maintained on anticoagulation. She has history of atrial fibrillation, hypothyroidism and seizure disorders. For now, the patient is in the intensive care unit for an acute hypoxic respiratory failure. The patient is currently on Airvo at 60 L with an FiO2 of 90% %. Chest x-ray shows bilateral lower lobe consolidation and possibly some small effusions. Antibiotic coverage is with IV Eraxis, vancomycin and Rocephin. Sputum samples collected on 08/06/2024 was consistent with MRSA, Morganella morganii and strep agalactiae. The patient had developed significant leukocytosis which is downtrending and the white cell count from yesterday was down to 16. Patient also developed atrial fibrillation with rapid ventricular response over the past 24 to 48 hours. The patient based on that was started on Cardizem drip and she is already anticoagulated with Eliquis. She remains on Cardizem at 10 mg an hour. She is also on metoprolol 25 mg p.o. twice daily for rate control. The patient is also on oxygen and Airvo settings this morning is 6 L with an FiO2 of 90%. The patient has a J-tube for feeding receiving Jevity 1.5 at the rate of 40 cc an hour. The J-tube was replaced yesterday. This was done by general surgery. CAT scan of the abdomen done on 08/09/2024 showed that the jejunostomy tube was grossly intact. Nevertheless, it there was evidence of lower lobe consolidations bilaterally worse on the left. 08/12/2023, the patient is being seen for a follow-up. Condition is gradually compensated over the past 24 hours and the patient has become more hypoxic related to her pneumonia. Noted the patient was on high flow oxygen, Airvo 60 L with an FiO2 of 90%. Subsequently, she was given 100% nonrebreather facemask and the patient continued to have episodes of desaturation. At a later stage, overnight, the patient was placed on a BiPAP and currently she is on a BiPAP pressure of 15 over 10 cm of water with an FiO2 of 100%. Initially, this morning, she was still desaturating and her blood gas was obtained which showed a pH of 7.33 with a pCO2 of 74 and pO2 of 49. I attended on this patient immediately. I wanted to intubate the patient. However, I do acknowledge that this is going to be an extremely difficult intubation as the patient does not have any ability to open up her mouth due to chronic scarring in her neck muscles and scarring of her jaw and her neck is significantly scarred up and stiff related to previous radiation therapy. While adjusting the BiPAP mask, we improved the leaks and the pulse ox improved currently she is pulse oxing in order of 91 to 93%. Reviewed the chest x-ray from today shows diffuse bilateral airspace disease consistent with pneumonia. No evidence of any pneumothorax. The patient continues to have a congested cough. No significant sputum production. Despite his ongoing hypoxemia, she is breathing comfortably. Her current respiratory rate is in the mid 20s. She is still awake and communicating. No fever. No hemodynamic instability. She remains in atrial fibrillation. Antibiotic coverage remains unchanged and the patient remains on a combination of Rocephin and vancomycin and Eraxis. The fluid balance has been negative over the past 24 hours. The white cell count is at 18.10.8 and this is. Calcium level 6. The patient remains on DuoNeb nebulized treatments. In terms of her ongoing atrial fibrillation, she is on Cardizem drip at 15 mg an hour. She remains on anticoagulation with Eliquis. She is also on metoprololAt a dose of 25 mg p.o. twice a day. No hypotension. Hemodynamically stable. IV fluids are currently at KVO. On 08/13/2024, the patient is being seen for a follow-up. As mentioned, the patient was intubated yesterday and placed on mechanical ventilation due to bilateral pneumonia that was further complicated by an episode of aspiration. This morning, the patient is sedated and the patient is calm and comfortable. She is on assist-control mode of mechanical ventilation. He is on a rate of 16 with a tidal volume of 350 and FiO2 of 50% with a PEEP of 8. The blood gas showed a pH of 7.45 with a pCO2 of 54 and pO2 of 91. Chest x-ray is consistent with diffuse bilateral pulmonary filtrates/pneumonia. Bronchoscopy was also done and another bronchial aspirate was obtained, pending further cultures. She is calm and comfortable on propofol running at 35 mcg/kg/min. Noted post intubation, the patient became hypotensive. Received a liter bolus and currently she is on normal saline at rate of 100 cc an hour. Norepinephrine is running at 0.15 mcg/kg/min. She remains in atrial fibrillation. She is on amiodarone drip at 0.5 mg/min and she is also on Cardizem drip. Slightly tachycardic. Remains on Rocephin and vancomycin and Rocephin will be switched to Zosyn. Lasix will also to be discontinued. Enteral feeding is to be started today. The white cell count of 21 with a hemoglobin 10.3 and a platelet count of 427. Sodium is at 138, BUN 13 creatinine 0.4 and a potassium level is at 3.2 with a bicarb level of 37 Objective - Vital Signs Vital signs: Vital Signs Temp 98.6 F 08/13/24 04:00 Pulse 96 08/13/24 07:00 Resp 16 08/13/24 07:00 BP 102/48 08/12/24 23:15 Pulse Ox 99 08/13/24 07:00 FiO2 50 08/13/24 07:55 Intake & Output 08/12/24 08/13/24 08/13/24 18:59 06:59 18:59 Intake Total 1959.041 4329.991 176.941 Output Total 860 745 30 Balance 615.526 4575.991 146.941 Weight 60.7 kg Intake: IV 800 1700 100 Anidulafungin 100 mg In 100 Sodium Chloride 0.9% 100 ml @ 84 mls/hr IVPB DAILY @1700 [facility] Rx#:[id number] Sodium Chloride 0.9% 1, 400 1200 100 000 ml @ 20 mls/hr IV . Q24H [facility] Rx#:[id number] Vancomycin 1,000 mg In 250 500 Sodium Chloride 0.9% 250 ml @ 125 mls/hr IVPB Q8H [facility] Rx#:[id number] cefTRIAXone 2 gm In 50 Sodium Chloride 0.9% 50 ml @ 100 mls/hr IVPB Q24HR [facility] Rx#:[id number] Intake, IV Titration 124.600 444.991 76.941 Amount Diltiazem 125 mg In 118.666 125 Sodium Chloride 0.9% 100 ml @ Per Protocol IV .Q0M [facility] Rx#:[id number] Norepinephrine 8 mg In 0.054 241.647 6.773 Sodium Chloride 0.9% 250 ml @ 0.03 MCG/KG/MIN 3. 251 mls/hr IV .Q24H [facility] Rx#:[id number] propofoL 1,000 mg In 5.88 78.344 70.168 Empty Bag 1 bag @ 15 MCG/ KG/MIN 5.04 mls/hr IV . [id number] [facility] Rx#:[id number] Tube Feeding 410 Other 60 Output: Urine 860 745 30 Other: Voiding Method Indwelling Catheter Indwelling Catheter ABP, PAP, CO, CI - Last Documented Arterial Blood Pressure 116/59 - Exam GENERAL EXAM: Alert, 63-year-old female, sedated on propofol,, comfortable, orotracheal tube is in good position. HEAD: Normocephalic and atraumatic EYES: Normal reaction of pupils, equal size. NOSE: Clear with pink turbinates. THROAT: No erythema or exudates. Edentulous, with previous reconstructive surgery. Unable to open her mouth as the patient has jaw dysfunction and scarring in her neck muscles. NECK: No masses, no JVD. Significant neck deformity related to radiation- induced scarring and previous neck surgery. CHEST: No chest wall deformity. LUNGS: Equal air entry with bilateral rhonchi and wheezing with left lower lobe inspiratory crackles. CVS: S1 and S2 normal with no audible murmur, irregular rhythm. No extra heart sounds ABDOMEN: No hepatosplenomegaly, active bowel sounds, no guarding or rigidity. There are two percutaneous feeding tubes. SPINE: No scoliosis or deformity SKIN: No rashes CENTRAL NERVOUS SYSTEM: Sedated, calm and comfortable EXTREMITIES: There is no peripheral edema, clubbing, or cyanosis. Peripheral pulses are intact. - Labs CBC & Chem 7: 08/13/24 03:16 08/13/24 03:16 Labs: Abnormal Lab Results - Last 24 Hours (Table) 08/12/24 08/12/24 08/12/24 Range/Units 10:50 12:23 17:33 WBC (3.8-10.6) k/uL RBC (3.80-5.40) m/uL Hgb (11.4-16.0) gm/dL Hct (34.0-46.0) % MCHC (31.0-37.0) g/dL Neutrophils # (1.3-7.7) k/uL ABG pCO2 66 H (35-45) mmHg ABG pO2 78 L (83-108) mmHg ABG HCO3 38 H (21-25) mmol/L ABG Total CO2 40 H (19-24) mmol/L ABG O2 Saturation (94-97) % VBG pH 7.46 H (7.31-7.41) VBG HCO3 37 H (24-28) mmol/L Hemoglobin 10.9 L (11.4-16.0) gm/dL Potassium (3.5-5.1) mmol/L Chloride (98-107) mmol/L Carbon Dioxide (22-30) mmol/L Creatinine (0.52-1.04) mg/dL Glucose (74-99) mg/dL POC Glucose (mg/dL) 170 H (70-110) mg/dL Calcium (8.4-10.2) mg/dL 08/13/24 08/13/24 08/13/24 Range/Units 03:15 03:16 03:16 WBC 21.1 H (3.8-10.6) k/uL RBC 3.58 L (3.80-5.40) m/uL Hgb 10.3 L (11.4-16.0) gm/dL Hct 33.7 L (34.0-46.0) % MCHC 30.7 L (31.0-37.0) g/dL Neutrophils # 18.8 H (1.3-7.7) k/uL ABG pCO2 (35-45) mmHg ABG pO2 (83-108) mmHg ABG HCO3 (21-25) mmol/L ABG Total CO2 (19-24) mmol/L ABG O2 Saturation (94-97) % VBG pH (7.31-7.41) VBG HCO3 (24-28) mmol/L Hemoglobin (11.4-16.0) gm/dL Potassium 3.2 L (3.5-5.1) mmol/L Chloride 97 L (98-107) mmol/L Carbon Dioxide 37 H (22-30) mmol/L Creatinine 0.42 L (0.52-1.04) mg/dL Glucose 147 H (74-99) mg/dL POC Glucose (mg/dL) 148 H (70-110) mg/dL Calcium 8.1 L (8.4-10.2) mg/dL 08/13/24 08/13/24 Range/Units 04:52 06:45 WBC (3.8-10.6) k/uL RBC (3.80-5.40) m/uL Hgb (11.4-16.0) gm/dL Hct (34.0-46.0) % MCHC (31.0-37.0) g/dL Neutrophils # (1.3-7.7) k/uL ABG pCO2 54 H (35-45) mmHg ABG pO2 (83-108) mmHg ABG HCO3 38 H (21-25) mmol/L ABG Total CO2 39 H (19-24) mmol/L ABG O2 Saturation 97.6 H (94-97) % VBG pH (7.31-7.41) VBG HCO3 (24-28) mmol/L Hemoglobin 10.2 L (11.4-16.0) gm/dL Potassium (3.5-5.1) mmol/L Chloride (98-107) mmol/L Carbon Dioxide (22-30) mmol/L Creatinine (0.52-1.04) mg/dL Glucose (74-99) mg/dL POC Glucose (mg/dL) 137 H (70-110) mg/dL Calcium (8.4-10.2) mg/dL Microbiology - Last 24 Hours (Table) 08/12/24 17:00 Gram Stain - Preliminary Sputum 08/11/24 12:31 Blood Culture - Preliminary Blood Assessment and Plan Plan: Acute hypoxic respiratory failure secondary to bilateral pneumonia with subsequent aspiration. The patient is currently intubated on mechanical ventilator. The patient was intubated on 08/12/2024. Remains on broad-spectrum antibiotics. Bilateral lower lobe pneumonia, bacterial, likely related to aspiration, sputum sample obtained 08/01 and again on August 06, 2024 positive for MRSA, Morganella, and group B strep and Rosa. Failed outpatient treatment. The patient's pneumonia is polymicrobial. Noted the patient failed Airvo and BiPAP treatment for respiratory support and the patient had to be intubated on 08/12/2024. She did encounter another bout of aspiration in the intensive care unit. Repeat bronchoscopy endobronchial aspirate was obtained for culturing purposes. Sepsis with secondary hypotension, currently on norepinephrine infusion Acute leukocytosis, secondary to above Atrial fibrillation with a rapid ventricular response, Currently on Cardizem drip and amiodarone drip anticoagulated with Eliquis, echocardiogram is showing a preserved LV function History of recurrent aspiration pneumonia and MRSA pneumonia. 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 Nothing by mouth History of radiation pneumonitis Xerostomia History of DVT/PE, anticoagulated on Eliquis History of hypothyroidism History of seizure disorder Plan: Continue vent support Keep the patient sedated on propofol Continue normal saline at rate of 100 cc an hour Discontinued IV Lasix Discontinue IV Cardizem Continue amiodarone drip at 0.5 mg/min Gave digoxin 0.5 mg IV Monitor the heart rate Stop the IV Rocephin and switch this patient to Zosyn in combination with vancomycin Anticoagulated with Eliquis Continue Eraxis Continue bronchodilators Restart Jevity tube feedings, the G-tube has been replaced Will continue to follow Condition is obviously critical. Will continue to follow make further recommendations based on progress. Evaluation was done more than 30 minutes. Time with Patient: Greater than 30
[2024-08-13] MEDS: DIGOXIN 250 MCG/ML 2 ML AMP IVP STA (10:14)
--- NOTE | 2024-08-13 11:06 | XR ---
EXAMINATION TYPE: XR KUB portable DATE OF EXAM: 08/13/2024 11:02 AM COMPARISON: Recent CT 4 days earlier. CLINICAL INDICATION: Female, 64 years old with history of check J tube placement, TECHNIQUE: Single portable supine KUB image of the abdomen is obtained after contrast injection. FINDINGS: Contrast is seen in nondistended jejunal loops in the left abdomen consistent with adequate positioning of J-tube. No obvious extravasation. IMPRESSION: As above. [facility], , 08/13/2024 11:04 AM
[2024-08-13 11:56] LABS: Glucose,Whole Blood 123 mg/dL (70-110)
[2024-08-13] MEDS: POTASSIUM CHLORIDE 10 MEQ in WATER FOR INJECTION 1 100ML.BAG IVPB SCH (13:13)
--- NOTE | 2024-08-13 14:13 | P.PN ---
Subjective Progress Note Date: 08/13/24 SURGICAL PROGRESS NOTE CHIEF COMPLAINT: Respiratory failure HISTORY OF PRESENT ILLNESS: Patient status post J-tube exchange at bedside by surgeon. Patient required to be intubated yesterday due to respiratory distress. Appears patient aspirated yesterday. She had vomited while on the BiPAP. Patient had KUB x-ray with peg o gram completed and confirmed J-tube in appropriate position. Tube feeds have been restarted at 10ml/hr. Afebrile. WBC is up from 18-21 PHYSICAL EXAM: VITAL SIGNS: Reviewed. GENERAL: Intubated and sedated ABDOMEN: Soft. Nondistended. Nontender. Skin irritation noted around J-tube site ASSESSMENT: 1. Clogged jejunostomy tube and nausea status post J-tube exchange at bedside 2. Respiratory distress with pneumonia 3. History of tongue and neck cancer status post chemo and radiation and reconstructive surgery PLAN: -Continue tube feeds at 10ml/hr. Titrate per dietitian -Apply zinc oxide to skin irritation around J-tube Physician Wheel Worker note has been reviewed by physician. Signing provider agrees with the documented findings, assessment, and plan of care. Attestation Patient seen and examined at bedside in the ICU. Chief complaint of respiratory failure. She is status post J-tube exchange at bedside. KUB with PEG a gram was completed and confirmed J-tube is in appropriate position. Tube feeds restarted today at 10 cc/h due to concern of aspiration risk. Currently, patient appears to be tolerating the tube feeds and titrate per dietitian. Apply zinc oxide to skin irritation around the J-tube site. Continue ICU care. Kaitlynn Sacnhez DO Objective - Vital Signs Vital signs: Vital Signs Temp 98.2 F 08/13/24 12:00 Pulse 123 H 08/13/24 13:30 Resp 18 08/13/24 13:30 BP 102/48 08/12/24 23:15 Pulse Ox 97 08/13/24 13:30 FiO2 50 08/13/24 12:00 Intake & Output 08/12/24 08/13/24 08/13/24 18:59 06:59 18:59 Intake Total 8515.722 1987.991 1715.794 Output Total 860 745 265 Balance 083.940 8002.991 1450.794 Weight 60.7 kg Intake: IV 800 1700 520 Anidulafungin 100 mg In 100 300 Sodium Chloride 0.9% 100 ml @ 84 mls/hr IVPB DAILY @1700 [facility] Rx#:[id number] Sodium Chloride 0.9% 1, 400 1200 220 000 ml @ 20 mls/hr IV . Q24H [facility] Rx#:[id number] Vancomycin 1,000 mg In 250 500 Sodium Chloride 0.9% 250 ml @ 125 mls/hr IVPB Q8H [facility] Rx#:[id number] cefTRIAXone 2 gm In 50 Sodium Chloride 0.9% 50 ml @ 100 mls/hr IVPB Q24HR [facility] Rx#:[id number] Intake, IV Titration 124.600 033.906 3068.794 Amount Amiodarone 450 mg In 250 Dextrose 5% in Water 250 ml @ 0.5 MG/MIN 16.667 mls/hr IV .Q15H [facility] Rx#: [id number] Diltiazem 125 mg In 118.666 125 42.833 Sodium Chloride 0.9% 100 ml @ Per Protocol IV .Q0M [facility] Rx#:[id number] Norepinephrine 8 mg In 0.054 241.647 99.277 Sodium Chloride 0.9% 250 ml @ 0.03 MCG/KG/MIN 3. 251 mls/hr IV .Q24H [facility] Rx#:[id number] Piperacillin-Tazobactam 3 200 .375 gm In Sodium Chloride 0.9% 100 ml @ 25 mls/hr IVPB Q8HR [facility] Rx# :[id number] Potassium Chloride 20 meq 200 In Water For Injection 1 100ml.bag @ 50 mls/hr IVPB ONCE [facility] Rx#: [id number] Potassium Chloride 20 meq 100 In Water For Injection 1 100ml.bag @ 50 mls/hr IVPB Q2H [facility] Rx#: [id number] Sodium Chloride 0.9% 1, 200 000 ml @ 20 mls/hr IV . Q24H [facility] Rx#:[id number] propofoL 1,000 mg In 5.88 78.344 103.684 Empty Bag 1 bag @ 15 MCG/ KG/MIN 5.04 mls/hr IV . [id number] [facility] Rx#:[id number] Tube Feeding 410 Other 60 Output: Urine 860 745 265 Other: Voiding Method Indwelling Catheter Indwelling Catheter Indwelling Catheter ABP, PAP, CO, CI - Last Documented Arterial Blood Pressure 138/69 - Labs CBC & Chem 7: 08/13/24 03:16 08/13/24 10:50 Labs: Abnormal Lab Results - Last 24 Hours (Table) 08/12/24 08/13/24 08/13/24 Range/Units 17:33 03:15 03:16 WBC 21.1 H (3.8-10.6) k/uL RBC 3.58 L (3.80-5.40) m/uL Hgb 10.3 L (11.4-16.0) gm/dL Hct 33.7 L (34.0-46.0) % MCHC 30.7 L (31.0-37.0) g/dL Neutrophils # 18.8 H (1.3-7.7) k/uL ABG pCO2 66 H (35-45) mmHg ABG pO2 78 L (83-108) mmHg ABG HCO3 38 H (21-25) mmol/L ABG Total CO2 40 H (19-24) mmol/L ABG O2 Saturation (94-97) % Hemoglobin 10.9 L (11.4-16.0) gm/dL Potassium (3.5-5.1) mmol/L Chloride (98-107) mmol/L Carbon Dioxide (22-30) mmol/L Creatinine (0.52-1.04) mg/dL Glucose (74-99) mg/dL POC Glucose (mg/dL) 148 H (70-110) mg/dL Calcium (8.4-10.2) mg/dL 08/13/24 08/13/24 08/13/24 Range/Units 03:16 04:52 06:45 WBC (3.8-10.6) k/uL RBC (3.80-5.40) m/uL Hgb (11.4-16.0) gm/dL Hct (34.0-46.0) % MCHC (31.0-37.0) g/dL Neutrophils # (1.3-7.7) k/uL ABG pCO2 54 H (35-45) mmHg ABG pO2 (83-108) mmHg ABG HCO3 38 H (21-25) mmol/L ABG Total CO2 39 H (19-24) mmol/L ABG O2 Saturation 97.6 H (94-97) % Hemoglobin 10.2 L (11.4-16.0) gm/dL Potassium 3.2 L (3.5-5.1) mmol/L Chloride 97 L (98-107) mmol/L Carbon Dioxide 37 H (22-30) mmol/L Creatinine 0.42 L (0.52-1.04) mg/dL Glucose 147 H (74-99) mg/dL POC Glucose (mg/dL) 137 H (70-110) mg/dL Calcium 8.1 L (8.4-10.2) mg/dL 08/13/24 Range/Units 11:52 WBC (3.8-10.6) k/uL RBC (3.80-5.40) m/uL Hgb (11.4-16.0) gm/dL Hct (34.0-46.0) % MCHC (31.0-37.0) g/dL Neutrophils # (1.3-7.7) k/uL ABG pCO2 (35-45) mmHg ABG pO2 (83-108) mmHg ABG HCO3 (21-25) mmol/L ABG Total CO2 (19-24) mmol/L ABG O2 Saturation (94-97) % Hemoglobin (11.4-16.0) gm/dL Potassium (3.5-5.1) mmol/L Chloride (98-107) mmol/L Carbon Dioxide (22-30) mmol/L Creatinine (0.52-1.04) mg/dL Glucose (74-99) mg/dL POC Glucose (mg/dL) 123 H (70-110) mg/dL Calcium (8.4-10.2) mg/dL Microbiology - Last 24 Hours (Table) 08/12/24 17:00 Gram Stain - Preliminary Sputum 08/11/24 12:31 Blood Culture - Preliminary Blood
--- NOTE | 2024-08-13 15:48 | P.PN ---
Subjective History of Present Illness: The patient is a 63-year-old female, status post radical neck dissection for oral cancer and reconstructive surgery, history of PEG tube because of recurrent aspiration who was admitted to the hospital because of progressive dyspnea cough and was noted to have recurrent aspiration pneumonia. Yesterday she had an episode of atrial fibrillation with rapid ventricle response and is transferred to the ICU. She was hypotensive. She is back in sinus mechanism this morning and continues to be on IV Cardizem. She had a prior history of what appears to be DVT probably in her arm and has been anticoagulated. According to the family it is unclear if she had any arterial embolization from atrial fibrillation, she has been followed at [facility] and has been on anticoagulation since. She has no history of myocardial infarction or documented CHF. Her activity level is quite limited. She continues to be dyspneic and has a cough but she denies any chest discomfort, peripheral edema, PND or orthopnea. No evaluation of her systolic function is available to me. Her NT proBNP was elevated. She has no history of PND, orthopnea. According to her she had no recurrent atrial fibrillation since 6 years ago. She has no history of diabetes or hyperlipidemia. Medications: As an outpatient she is on Eliquis 5 mg twice a day, gabapentin, aspirin, Cymbalta 08/11 Patient seen and examined. Patient denies chest pain or pressure. Echocardiogram performed this morning which shows EF 65-70% with hyperdynamic function, no mitral regurgitation, [id number] tricuspid regurgitation. She was on Cardizem drip at 10 however this was decreased to 5 and is currently in sinus rhythm. She was not very symptomatic in terms of feeling her A. fib during the episode. She is tolerating metoprolol 25 twice a day. 08/12 Patient seen and examined. Patient with more respiratory distress. Her heart rate has been increased up in the low 110s consistently and then now more recently up in the 150s to 160s. She remains on Cardizem drip at 15. Lasix 20 mg IV twice a day was started today. 08/13 Patient seen and examined. Patient had increasing respiratory distress with vomiting and aspiration and eventually underwent intubation and bronchoscopy with significant secretions removed. She was being diuresed yesterday however had more hypotension around the time of intubation and therefore has been given IV fluids. She was tachycardic and had been on a Cardizem drip as well as amiodarone drip however with intubation and sedation heart rates have improved. Cardizem was stopped and patient has been on digoxin. Patient does have significant issues with aspiration in the past per family and briefly discussed this would likely have some increased risks evaluated were to consider a TALON cardioversion. At this point however heart rates better controlled mainly in the 90s to 100s. Physical Examination: VS reviewed Head: Status post radical neck dissection and reconstruction of the jaw Eyes: Sclerae nonicteric. Neck: Good carotid upstroke, no bruit, Lungs: Bilateral rhonchi at the bases Heart: Regular rate and rhythm, S1-S2, no S3, no rub. Systolic ejection murmur. Abdomen: Soft nontender, positive bowel sounds no organomegaly, PEG tube in place. Extremities: No edema, intact distal pulses. EKG: On admission sinus mechanism with nonspecific ST-T wave changes with normal axis Impression: 1. Paroxysmal atrial fibrillation probably exacerbated by the lung status. Patient has been anticoagulated and had a remote history of atrial fibrillation 2. Recurrent aspiration pneumonia 3. Status post PEG tube placement 4. Elevation of NT proBNP with no clear symptoms or findings on examination of heart failure, could be exacerbated by the lung status 5. Status post oral cancer and radical neck dissection and reconstructive surgery 6. Leukocytosis improving 7. History of DVT Plan: Continue with amiodarone as well as digoxin for now. May consider Cardizem drip however heart is probably improved after sedation and controlling respiratory status. Most of her respiratory issues appear related to pulmonary source and aspiration and did not improve much with attempted Lasix. Patient's LV is hyperdynamic and does not appear as much component of heart failure. Objective - Vital Signs Vital signs: Vital Signs Temp 98.2 F 08/13/24 12:00 Pulse 111 H 08/13/24 15:30 Resp 16 08/13/24 15:30 BP 102/48 08/12/24 23:15 Pulse Ox 96 08/13/24 15:30 FiO2 50 08/13/24 15:15 Intake & Output 08/12/24 08/13/24 08/13/24 18:59 06:59 18:59 Intake Total 0923.624 6120.991 1788.712 Output Total 860 745 265 Balance 423.359 4037.991 1523.712 Weight 60.7 kg Intake: IV 800 1700 520 Anidulafungin 100 mg In 100 300 Sodium Chloride 0.9% 100 ml @ 84 mls/hr IVPB DAILY @1700 [facility] Rx#:[id number] Sodium Chloride 0.9% 1, 400 1200 220 000 ml @ 20 mls/hr IV . Q24H [facility] 234 [facility] Rx#:[id number] Vancomycin 1,000 mg In 250 500 Sodium Chloride 0.9% 250 ml @ 125 mls/hr IVPB Q8H [facility] 234 [facility]S AT [facility] Rx#:[id number] cefTRIAXone 2 gm In 50 Sodium Chloride 0.9% 50 ml @ 100 mls/hr IVPB Q24HR [facility] 234 [facility]S AT [facility] Rx#:[id number] Intake, IV Titration 124.600 803.685 5723.712 Amount Amiodarone 450 mg In 250 Dextrose 5% in Water 250 ml @ 0.5 MG/MIN 16.667 mls/hr IV .Q15H [facility] 234 [facility]S [facility] Rx#: [id number] Diltiazem 125 mg In 118.666 125 42.833 Sodium Chloride 0.9% 100 ml @ Per Protocol IV .Q0M [facility]CLUDE 234 [facility]S AT [facility] Rx#:[id number] Norepinephrine 8 mg In 0.054 241.647 119.107 Sodium Chloride 0.9% 250 ml @ 0.03 MCG/KG/MIN 3. 251 mls/hr IV .Q24H [facility] 234 [facility]S AT [facility] Rx#:[id number] Piperacillin-Tazobactam 3 200 .375 gm In Sodium Chloride 0.9% 100 ml @ 25 mls/hr IVPB Q8HR [facility] 234 [facility]S AT [facility] Rx# :[id number] Potassium Chloride 20 meq 200 In Water For Injection 1 100ml.bag @ 50 mls/hr IVPB ONCE ONE Rx#: [id number] Potassium Chloride 20 meq 100 In Water For Injection 1 100ml.bag @ 50 mls/hr IVPB Q2H [facility] 234 [facility]S AT [facility] Rx#: [id number] Sodium Chloride 0.9% 1, 200 000 ml @ 20 mls/hr IV . Q24H [facility]CLUDE 234 [facility]S AT [facility] Rx#:[id number] propofoL 1,000 mg In 5.88 78.344 156.772 Empty Bag 1 bag @ 15 MCG/ KG/MIN 5.04 mls/hr IV . [id number] COUNTS INCLUDE 234 [facility]EDS AT [facility] Rx#:[id number] Tube Feeding 410 Other 60 Output: Urine 860 745 265 Other: Voiding Method Indwelling Catheter Indwelling Catheter Indwelling Catheter ABP, PAP, CO, CI - Last Documented Arterial Blood Pressure 120/61 - Labs CBC & Chem 7: 08/13/24 03:16 08/13/24 10:50 Labs: Abnormal Lab Results - Last 24 Hours (Table) 08/12/24 08/13/24 08/13/24 Range/Units 17:33 03:15 03:16 WBC 21.1 H (3.8-10.6) k/uL RBC 3.58 L (3.80-5.40) m/uL Hgb 10.3 L (11.4-16.0) gm/dL Hct 33.7 L (34.0-46.0) % MCHC 30.7 L (31.0-37.0) g/dL Neutrophils # 18.8 H (1.3-7.7) k/uL ABG pCO2 66 H (35-45) mmHg ABG pO2 78 L (83-108) mmHg ABG HCO3 38 H (21-25) mmol/L ABG Total CO2 40 H (19-24) mmol/L ABG O2 Saturation (94-97) % Hemoglobin 10.9 L (11.4-16.0) gm/dL Potassium (3.5-5.1) mmol/L Chloride (98-107) mmol/L Carbon Dioxide (22-30) mmol/L Creatinine (0.52-1.04) mg/dL Glucose (74-99) mg/dL POC Glucose (mg/dL) 148 H (70-110) mg/dL Calcium (8.4-10.2) mg/dL 08/13/24 08/13/24 08/13/24 Range/Units 03:16 04:52 06:45 WBC (3.8-10.6) k/uL RBC (3.80-5.40) m/uL Hgb (11.4-16.0) gm/dL Hct (34.0-46.0) % MCHC (31.0-37.0) g/dL Neutrophils # (1.3-7.7) k/uL ABG pCO2 54 H (35-45) mmHg ABG pO2 (83-108) mmHg ABG HCO3 38 H (21-25) mmol/L ABG Total CO2 39 H (19-24) mmol/L ABG O2 Saturation 97.6 H (94-97) % Hemoglobin 10.2 L (11.4-16.0) gm/dL Potassium 3.2 L (3.5-5.1) mmol/L Chloride 97 L (98-107) mmol/L Carbon Dioxide 37 H (22-30) mmol/L Creatinine 0.42 L (0.52-1.04) mg/dL Glucose 147 H (74-99) mg/dL POC Glucose (mg/dL) 137 H (70-110) mg/dL Calcium 8.1 L (8.4-10.2) mg/dL 08/13/24 Range/Units 11:52 WBC (3.8-10.6) k/uL RBC (3.80-5.40) m/uL Hgb (11.4-16.0) gm/dL Hct (34.0-46.0) % MCHC (31.0-37.0) g/dL Neutrophils # (1.3-7.7) k/uL ABG pCO2 (35-45) mmHg ABG pO2 (83-108) mmHg ABG HCO3 (21-25) mmol/L ABG Total CO2 (19-24) mmol/L ABG O2 Saturation (94-97) % Hemoglobin (11.4-16.0) gm/dL Potassium (3.5-5.1) mmol/L Chloride (98-107) mmol/L Carbon Dioxide (22-30) mmol/L Creatinine (0.52-1.04) mg/dL Glucose (74-99) mg/dL POC Glucose (mg/dL) 123 H (70-110) mg/dL Calcium (8.4-10.2) mg/dL Microbiology - Last 24 Hours (Table) 08/12/24 17:00 Gram Stain - Preliminary Sputum 08/11/24 12:31 Blood Culture - Preliminary Blood
[2024-08-13 17:38] LABS: Glucose,Whole Blood 115 mg/dL (70-110)
[2024-08-13 23:49] LABS: Glucose,Whole Blood 139 mg/dL (70-110)
[2024-08-14] MEDS: SODIUM CHLORIDE 0.9% 1,000 ML IV SCH (02:55)
[2024-08-14 04:06] LABS: HCT 30.1 % (34.0-46.0); HGB 9.5 gm/dL (11.4-16.0); Hypochromasia Marked; MCH 29.6 pg (25.0-35.0); MCHC 31.4 g/dL (31.0-37.0); MCV 94.3 fL (80.0-100.0); Mean Platelet Volume 9.2; Platelet Count 375 k/uL (150-450); RDW 15.1 % (11.5-15.5); WBC 14.3 k/uL (3.8-10.6)
[2024-08-14 04:26] LABS: African American GFR (CKD) >90 (>60 ml/min/1.73 sqM); Anion Gap 2 mmol/L; Blood Urea Nitrogen 8 mg/dL (7-17); Calcium 8.1 mg/dL (8.4-10.2); Carbon Dioxide 35 mmol/L (22-30); Chloride 100 mmol/L (98-107); Glucose 125 mg/dL (74-99); Non-African American GFR(CKD) >90 (>60 ml/min/1.73 sqM); Potassium 3.6 mmol/L (3.5-5.1); Sodium 137 mmol/L (137-145)
[2024-08-14 05:11] LABS: Glucose,Whole Blood 156 mg/dL (70-110)
[2024-08-14 05:11] LABS: Glucose,Whole Blood 152 mg/dL (70-110)
[2024-08-14 05:17] LABS: ABG Base Excess 10.2 mmol/L; ABG HCO3 36 mmol/L (21-25); ABG Oxygen Saturation 96.6 % (94-97); ABG PCO2 51 mmHg (35-45); ABG PH 7.45 (7.35-7.45); ABG PO2 82 mmHg (83-108); ABG TCO2 37 mmol/L (19-24)
[2024-08-14 05:19] LABS: Allen Test Performed? No
--- NOTE | 2024-08-14 06:22 | P.PN ---
Subjective History of Present Illness: The patient is a 63-year-old female, status post radical neck dissection for oral cancer and reconstructive surgery, history of PEG tube because of recurrent aspiration who was admitted to the hospital because of progressive dyspnea cough and was noted to have recurrent aspiration pneumonia. Yesterday she had an episode of atrial fibrillation with rapid ventricle response and is transferred to the ICU. She was hypotensive. She is back in sinus mechanism this morning and continues to be on IV Cardizem. She had a prior history of what appears to be DVT probably in her arm and has been anticoagulated. According to the family it is unclear if she had any arterial embolization from atrial fibrillation, she has been followed at [facility] and has been on anticoagulation since. She has no history of myocardial infarction or documented CHF. Her activity level is quite limited. She continues to be dyspneic and has a cough but she denies any chest discomfort, peripheral edema, PND or orthopnea. No evaluation of her systolic function is available to me. Her NT proBNP was elevated. She has no history of PND, orthopnea. According to her she had no recurrent atrial fibrillation since 6 years ago. She has no history of diabetes or hyperlipidemia. Medications: As an outpatient she is on Eliquis 5 mg twice a day, gabapentin, aspirin, Cymbalta 08/11 Patient seen and examined. Patient denies chest pain or pressure. Echocardiogram performed this morning which shows EF 65-70% with hyperdynamic function, no mitral regurgitation, [id number] tricuspid regurgitation. She was on Cardizem drip at 10 however this was decreased to 5 and is currently in sinus rhythm. She was not very symptomatic in terms of feeling her A. fib during the episode. She is tolerating metoprolol 25 twice a day. 08/12 Patient seen and examined. Patient with more respiratory distress. Her heart rate has been increased up in the low 110s consistently and then now more recently up in the 150s to 160s. She remains on Cardizem drip at 15. Lasix 20 mg IV twice a day was started today. 08/13 Patient seen and examined. Patient had increasing respiratory distress with vomiting and aspiration and eventually underwent intubation and bronchoscopy with significant secretions removed. She was being diuresed yesterday however had more hypotension around the time of intubation and therefore has been given IV fluids. She was tachycardic and had been on a Cardizem drip as well as amiodarone drip however with intubation and sedation heart rates have improved. Cardizem was stopped and patient has been on digoxin. Patient does have significant issues with aspiration in the past per family and briefly discussed this would likely have some increased risks evaluated were to consider a TALON cardioversion. At this point however heart rates better controlled mainly in the 90s to 100s. 08/14 Patient seen and examined. Remains in A. fib with heart rates in the 100-120 range. Remains on ventilator with FiO2 50% and PEEP of 8. On norepinephrine at 0.08. Remains on amiodarone drip. Physical Examination: VS reviewed Head: Status post radical neck dissection and reconstruction of the jaw Eyes: Sclerae nonicteric. Neck: Good carotid upstroke, no bruit, Lungs: Bilateral rhonchi at the bases Heart: Regular rate and rhythm, S1-S2, no S3, no rub. Systolic ejection murmur. Abdomen: Soft nontender, positive bowel sounds no organomegaly, PEG tube in place. Extremities: No edema, intact distal pulses. Impression: 1. Paroxysmal atrial fibrillation probably exacerbated by the lung status. Patient has been anticoagulated and had a remote history of atrial fibrillation 2. Recurrent aspiration pneumonia 3. Status post PEG tube placement 4. Elevation of NT proBNP with no clear symptoms or findings on examination of heart failure, could be exacerbated by the lung status 5. Status post oral cancer and radical neck dissection and reconstructive surgery 6. Leukocytosis improving 7. History of DVT Plan: Continue with amiodarone for now. Place patient back on Cardizem drip as tolerated and go up on norepinephrine as needed however should be able tolerate low-dose Cardizem. Wean ventilator as able. Most of her respiratory issues appear related to pulmonary source and aspiration and did not improve much with attempted Lasix. Patient's LV is hyperdynamic and does not appear as much component of heart failure. Objective - Vital Signs Vital signs: Vital Signs Temp 98.2 F 08/14/24 04:00 Pulse 96 08/14/24 05:15 Resp 16 08/14/24 05:15 BP 126/73 08/14/24 05:15 Pulse Ox 96 08/14/24 05:15 FiO2 50 08/14/24 04:15 Intake & Output 01/08/25 01/08/25 01/09/25 06:59 18:59 06:59 Intake Total 2144.991 2393.552 2049.736 Output Total 396 364 655 Balance 8621.842 0498.552 1394.736 Weight 60.7 kg 64.6 kg Intake: IV 4362 382 6546 0.9 @ 100mls/hr 800 Anidulafungin 100 mg In 400 Sodium Chloride 0.9% 100 ml @ 84 mls/hr IVPB DAILY @1700 [facility] Rx#:[id number] Sodium Chloride 0.9% 1, 1200 320 000 ml @ 20 mls/hr IV . Q24H [facility] Rx#:[id number] Vancomycin 1,000 mg In 500 500 Sodium Chloride 0.9% 250 ml @ 125 mls/hr IVPB Q8H [facility] Rx#:[id number] Intake, IV Titration 211.419 2569.552 569.736 Amount Amiodarone 450 mg In 250 228.616 Dextrose 5% in Water 250 ml @ 0.5 MG/MIN 16.667 mls/hr IV .Q15H [facility] Rx#: [id number] Anidulafungin 100 mg In 300 Sodium Chloride 0.9% 100 ml @ 84 mls/hr IVPB DAILY @1700 [facility] Rx#:[id number] Diltiazem 125 mg In 125 42.833 Sodium Chloride 0.9% 100 ml @ Per Protocol IV .Q0M [facility] Rx#:[id number] Norepinephrine 8 mg In 241.647 123.947 Sodium Chloride 0.9% 250 ml @ 0.03 MCG/KG/MIN 3. 251 mls/hr IV .Q24H [facility] Rx#:[id number] Piperacillin-Tazobactam 3 200 100 .375 gm In Sodium Chloride 0.9% 100 ml @ 25 mls/hr IVPB Q8HR [facility] Rx# :[id number] Potassium Chloride 10 meq 100 In Water For Injection 1 100ml.bag @ 100 mls/hr IVPB Q1H [facility] Rx#: [id number] Potassium Chloride 20 meq 200 In Water For Injection 1 100ml.bag @ 50 mls/hr IVPB ONCE ONE Rx#: [id number] Potassium Chloride 20 meq 100 In Water For Injection 1 100ml.bag @ 50 mls/hr IVPB Q2H [facility] Rx#: [id number] Sodium Chloride 0.9% 1, 100 000 ml @ 100 mls/hr IV . Q10H [facility] Rx#:[id number] Sodium Chloride 0.9% 1, 200 000 ml @ 20 mls/hr IV . Q24H [facility] Rx#:[id number] propofoL 1,000 mg In 78.344 156.772 141.12 Empty Bag 1 bag @ 15 MCG/ KG/MIN 5.04 mls/hr IV . [id number] [facility] Rx#:[id number] Tube Feeding 90 Other 90 Output: Urine 745 555 655 Other: Voiding Method Indwelling Catheter Indwelling Catheter Indwelling Catheter ABP, PAP, CO, CI - Last Documented Arterial Blood Pressure 102/56 - Labs CBC & Chem 7: 08/14/24 03:36 08/14/24 03:36 Labs: Abnormal Lab Results - Last 24 Hours (Table) 08/13/24 08/13/24 08/13/24 Range/Units 06:45 11:52 17:36 WBC (3.8-10.6) k/uL RBC (3.80-5.40) m/uL Hgb (11.4-16.0) gm/dL Hct (34.0-46.0) % ABG pCO2 (35-45) mmHg ABG pO2 (83-108) mmHg ABG HCO3 (21-25) mmol/L ABG Total CO2 (19-24) mmol/L Hemoglobin (11.4-16.0) gm/dL Carbon Dioxide (22-30) mmol/L Creatinine (0.52-1.04) mg/dL Glucose (74-99) mg/dL POC Glucose (mg/dL) 137 H 123 H 115 H (70-110) mg/dL Calcium (8.4-10.2) mg/dL 08/13/24 08/14/24 08/14/24 Range/Units 23:47 03:36 03:36 WBC 14.3 H (3.8-10.6) k/uL RBC 3.20 L (3.80-5.40) m/uL Hgb 9.5 L (11.4-16.0) gm/dL Hct 30.1 L (34.0-46.0) % ABG pCO2 (35-45) mmHg ABG pO2 (83-108) mmHg ABG HCO3 (21-25) mmol/L ABG Total CO2 (19-24) mmol/L Hemoglobin (11.4-16.0) gm/dL Carbon Dioxide 35 H (22-30) mmol/L Creatinine 0.40 L (0.52-1.04) mg/dL Glucose 125 H (74-99) mg/dL POC Glucose (mg/dL) 139 H (70-110) mg/dL Calcium 8.1 L (8.4-10.2) mg/dL 08/14/24 08/14/24 08/14/24 Range/Units 05:08 05:09 05:14 WBC (3.8-10.6) k/uL RBC (3.80-5.40) m/uL Hgb (11.4-16.0) gm/dL Hct (34.0-46.0) % ABG pCO2 51 H (35-45) mmHg ABG pO2 82 L (83-108) mmHg ABG HCO3 36 H (21-25) mmol/L ABG Total CO2 37 H (19-24) mmol/L Hemoglobin 9.4 L (11.4-16.0) gm/dL Carbon Dioxide (22-30) mmol/L Creatinine (0.52-1.04) mg/dL Glucose (74-99) mg/dL POC Glucose (mg/dL) 156 H 152 H (70-110) mg/dL Calcium (8.4-10.2) mg/dL Microbiology - Last 24 Hours (Table) 08/11/24 12:31 Blood Culture - Preliminary Blood 08/12/24 17:00 Gram Stain - Preliminary Sputum
[2024-08-14] MEDS ORDERED: DILTIAZEM 125 MG in SODIUM CHLORIDE 0.9% 100 ML IV SCH (06:30)
[2024-08-14] MEDS: DILTIAZEM DRIP BOLUS FROM BAG 1 MG SOLN IV ONE (07:08)
[2024-08-14] MEDS: DILTIAZEM 125 MG in SODIUM CHLORIDE 0.9% 100 ML IV SCH (07:08)
[2024-08-14] MEDS: POTASSIUM CHLORIDE 20 MEQ in WATER FOR INJECTION 1 100ML.BAG IVPB ONE ×2 (07:10→15:49)
--- NOTE | 2024-08-14 08:13 | XR ---
EXAMINATION TYPE: XR chest 1V portable DATE OF EXAM: 08/14/2024 CLINICAL HISTORY: Difficulty breathing progress study. TECHNIQUE: Single AP portable semiupright view of the chest is obtained. COMPARISON: Chest x-ray from one day earlier and older studies. FINDINGS: Stable endotracheal tube. There are persistent bibasilar increased opacities on background chronic parenchymal change and left apical focal pleural/parenchymal thickening. There are persistent left Greater than right bilateral multifocal opacities. Stable cardiomegaly and left sided volume loss. Deformity of left clavicle red emonstrated. Clip projecting over the upper trachea again seen. IMPRESSION: There are persistent bilateral small pleural effusions with continued central vascular co ngestion and bilateral multifocal acute infiltrates and/or edema. [facility], , 08/14/2024 8:10 AM
[2024-08-14 11:31] LABS: Glucose,Whole Blood 129 mg/dL (70-110)
--- NOTE | 2024-08-14 13:11 | P.PN ---
Subjective Progress Note Date: 08/14/24 SURGICAL PROGRESS NOTE CHIEF COMPLAINT: Respiratory failure HISTORY OF PRESENT ILLNESS: Patient remains intubated on mechanical ventilation in the ICU. Patient is tolerating her tube feeds. Tube feeds at 20 mL/h. No residual. Afebrile. WBC is down from 21-14 PHYSICAL EXAM: VITAL SIGNS: Reviewed. GENERAL: Intubated and sedated ABDOMEN: Soft. Nondistended. Nontender. Skin irritation noted around J-tube site ASSESSMENT: 1. Clogged jejunostomy tube and nausea status post J-tube exchange at bedside 2. Aspiration pneumonia 3. 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 Signing provider agrees with the documented findings, assessment, and plan of care. Attestation Patient seen and examined at bedside with family at bedside. Patient with chief complaint of respiratory failure. J-tube is currently running at 20 cc/h. Appears to be tolerating this. Continue with zinc oxide to skin irritation around J-tube. Kaitlynn Sanchez DO Objective - Vital Signs Vital signs: Vital Signs Temp 98.2 F 08/14/24 12:00 Pulse 99 08/14/24 12:54 Resp 16 08/14/24 12:00 BP 137/77 08/14/24 12:00 Pulse Ox 93 L 08/14/24 12:00 FiO2 40 08/14/24 12:55 Intake & Output 08/13/24 08/14/24 08/14/24 18:59 06:59 18:59 Intake Total 2393.552 2269.736 939.837 Output Total 555 730 490 Balance 7736.376 3249.736 449.837 Weight 64.6 kg 64.6 kg Intake: IV 720 1300 500 0.9 @ 100mls/hr 800 Anidulafungin 100 mg In 400 Sodium Chloride 0.9% 100 ml @ 84 mls/hr IVPB DAILY @1700 [facility] Rx#:[id number] Sodium Chloride 0.9% 1, 320 500 000 ml @ 20 mls/hr IV . Q24H [facility] Rx#:[id number] Vancomycin 1,000 mg In 500 Sodium Chloride 0.9% 250 ml @ 125 mls/hr IVPB Q8H [facility] Rx#:[id number] Intake, IV Titration 1673.552 769.736 369.837 Amount Amiodarone 450 mg In 250 228.616 Dextrose 5% in Water 250 ml @ 0.5 MG/MIN 16.667 mls/hr IV .Q15H [facility] Rx#: [id number] Anidulafungin 100 mg In 300 Sodium Chloride 0.9% 100 ml @ 84 mls/hr IVPB DAILY @1700 [facility] Rx#:[id number] Diltiazem 125 mg In 42.833 Sodium Chloride 0.9% 100 ml @ Per Protocol IV .Q0M [facility] Rx#:[id number] Norepinephrine 8 mg In 123.947 99.277 Sodium Chloride 0.9% 250 ml @ 0.03 MCG/KG/MIN 3. 251 mls/hr IV .Q24H [facility] Rx#:[id number] Piperacillin-Tazobactam 3 200 100 .375 gm In Sodium Chloride 0.9% 100 ml @ 25 mls/hr IVPB Q8HR [facility] Rx# :[id number] Potassium Chloride 10 meq 100 In Water For Injection 1 100ml.bag @ 100 mls/hr IVPB Q1H [facility] Rx#: [id number] Potassium Chloride 20 meq 200 In Water For Injection 1 100ml.bag @ 50 mls/hr IVPB ONCE ONE Rx#: [id number] Potassium Chloride 20 meq 100 In Water For Injection 1 100ml.bag @ 50 mls/hr IVPB ONCE ONE Rx#: [id number] Potassium Chloride 20 meq 100 In Water For Injection 1 100ml.bag @ 50 mls/hr IVPB Q2H [facility] Rx#: [id number] Sodium Chloride 0.9% 1, 300 100 000 ml @ 100 mls/hr IV . Q10H [facility] Rx#:[id number] Sodium Chloride 0.9% 1, 200 000 ml @ 20 mls/hr IV . Q24H [facility] Rx#:[id number] propofoL 1,000 mg In 156.772 141.12 70.56 Empty Bag 1 bag @ 15 MCG/ KG/MIN 5.04 mls/hr IV . [id number] [facility] Rx#:[id number] Tube Feeding 110 40 Other 90 30 Output: Urine 555 730 490 Other: Voiding Method Indwelling Catheter Indwelling Catheter Indwelling Catheter # Bowel Movements 1 ABP, PAP, CO, CI - Last Documented Arterial Blood Pressure 92/52 - Labs CBC & Chem 7: 08/14/24 03:36 08/14/24 12:05 Labs: Abnormal Lab Results - Last 24 Hours (Table) 08/13/24 08/13/24 08/14/24 Range/Units 17:36 23:47 03:36 WBC 14.3 H (3.8-10.6) k/uL RBC 3.20 L (3.80-5.40) m/uL Hgb 9.5 L (11.4-16.0) gm/dL Hct 30.1 L (34.0-46.0) % ABG pCO2 (35-45) mmHg ABG pO2 (83-108) mmHg ABG HCO3 (21-25) mmol/L ABG Total CO2 (19-24) mmol/L Hemoglobin (11.4-16.0) gm/dL Carbon Dioxide (22-30) mmol/L Creatinine (0.52-1.04) mg/dL Glucose (74-99) mg/dL POC Glucose (mg/dL) 115 H 139 H (70-110) mg/dL Calcium (8.4-10.2) mg/dL 08/14/24 08/14/24 08/14/24 Range/Units 03:36 05:08 05:09 WBC (3.8-10.6) k/uL RBC (3.80-5.40) m/uL Hgb (11.4-16.0) gm/dL Hct (34.0-46.0) % ABG pCO2 (35-45) mmHg ABG pO2 (83-108) mmHg ABG HCO3 (21-25) mmol/L ABG Total CO2 (19-24) mmol/L Hemoglobin (11.4-16.0) gm/dL Carbon Dioxide 35 H (22-30) mmol/L Creatinine 0.40 L (0.52-1.04) mg/dL Glucose 125 H (74-99) mg/dL POC Glucose (mg/dL) 156 H 152 H (70-110) mg/dL Calcium 8.1 L (8.4-10.2) mg/dL 08/14/24 08/14/24 Range/Units 05:14 11:28 WBC (3.8-10.6) k/uL RBC (3.80-5.40) m/uL Hgb (11.4-16.0) gm/dL Hct (34.0-46.0) % ABG pCO2 51 H (35-45) mmHg ABG pO2 82 L (83-108) mmHg ABG HCO3 36 H (21-25) mmol/L ABG Total CO2 37 H (19-24) mmol/L Hemoglobin 9.4 L (11.4-16.0) gm/dL Carbon Dioxide (22-30) mmol/L Creatinine (0.52-1.04) mg/dL Glucose (74-99) mg/dL POC Glucose (mg/dL) 129 H (70-110) mg/dL Calcium (8.4-10.2) mg/dL Microbiology - Last 24 Hours (Table) 08/11/24 12:31 Blood Culture - Preliminary Blood
--- NOTE | 2024-08-14 13:21 | P.PN ---
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 Patient chest x-ray right lower lobe infiltrate. On today's evaluation that is 08/12/2023, Patient is afebrile this morning patient still requiring high high flow nasal cannula and mask oxygen has been complaining of shortness of breath but no worsening denies any chest pain no worsening cough no vomiting or diarrhea has been reported Patient white count slightly up to 18.8, creatinine is 0.39 Objective - Vital Signs Vital signs: Vital Signs Temp 98.3 F 08/12/24 08:00 Pulse 109 H 08/12/24 15:00 Resp 20 08/12/24 15:00 BP 119/75 08/12/24 15:00 Pulse Ox 93 L 08/12/24 15:00 FiO2 100 08/12/24 11:38 Intake & Output 08/11/24 08/12/24 08/12/24 18:59 06:59 18:59 Intake Total 885 1546.334 950 Output Total 300 675 770 Balance 585 871.334 180 Weight 57.5 kg 56 kg Intake: IV 340 740 480 Anidulafungin 100 mg In 100 Sodium Chloride 0.9% 100 ml @ 84 mls/hr IVPB DAILY @1700 [facility] Rx#:[id number] Sodium Chloride 0.9% 1, 40 140 180 000 ml @ 20 mls/hr IV . Q24H [facility] Rx#:[id number] Vancomycin 1,000 mg In 250 500 250 Sodium Chloride 0.9% 250 ml @ 125 mls/hr IVPB Q8H [facility] Rx#:[id number] cefTRIAXone 2 gm In 50 50 Sodium Chloride 0.9% 50 ml @ 100 mls/hr IVPB Q24HR [facility] Rx#:[id number] Intake, IV Titration 125 6.334 Amount Diltiazem 125 mg In 125 Sodium Chloride 0.9% 100 ml @ 10 MG/HR 10 mls/hr IV .[id number] [facility] Rx#: [id number] Diltiazem 125 mg In 6.334 Sodium Chloride 0.9% 100 ml @ Per Protocol IV .Q0M [facility] Rx#:[id number] Tube Feeding 210 390 410 Other 210 410 60 Output: Urine 300 675 770 Other: Voiding Method External Catheter Indwelling Catheter # Voids 2 1 - Exam GENERAL DESCRIPTION: Middle-age female up in bed in no distress RESPIRATORY SYSTEM: Unlabored breathing , coarse breath sounds at bases HEART: S1 S2 regular rate and rhythm , ABDOMEN: Soft , no tenderness EXTREMITIES: No edema feet - Labs CBC & Chem 7: 08/14/24 03:36 08/14/24 12:05 Labs: Abnormal Lab Results - Last 24 Hours (Table) 08/11/24 08/12/24 08/12/24 Range/Units 17:39 01:12 05:31 WBC 18.9 H (3.8-10.6) k/uL RBC 3.65 L (3.80-5.40) m/uL Hgb 10.8 L (11.4-16.0) gm/dL Neutrophils # 16.1 H (1.3-7.7) k/uL Lymphocytes # 0.8 L (1.0-4.8) k/uL Monocytes # 1.7 H (0-1.0) k/uL ABG pH (7.35-7.45) ABG pCO2 (35-45) mmHg ABG pO2 (83-108) mmHg ABG HCO3 (21-25) mmol/L ABG Total CO2 (19-24) mmol/L ABG O2 Saturation (94-97) % VBG pH (7.31-7.41) VBG HCO3 (24-28) mmol/L Hemoglobin (11.4-16.0) gm/dL Sodium (137-145) mmol/L Potassium (3.5-5.1) mmol/L Chloride (98-107) mmol/L Carbon Dioxide (22-30) mmol/L Creatinine (0.52-1.04) mg/dL Glucose (74-99) mg/dL POC Glucose (mg/dL) 126 H 165 H (70-110) mg/dL 08/12/24 08/12/24 08/12/24 Range/Units 05:31 06:40 10:50 WBC (3.8-10.6) k/uL RBC (3.80-5.40) m/uL Hgb (11.4-16.0) gm/dL Neutrophils # (1.3-7.7) k/uL Lymphocytes # (1.0-4.8) k/uL Monocytes # (0-1.0) k/uL ABG pH 7.33 L (7.35-7.45) ABG pCO2 75 H* (35-45) mmHg ABG pO2 50 L* (83-108) mmHg ABG HCO3 39 H (21-25) mmol/L ABG Total CO2 42 H (19-24) mmol/L ABG O2 Saturation 81.7 L (94-97) % VBG pH 7.46 H (7.31-7.41) VBG HCO3 37 H (24-28) mmol/L Hemoglobin 11.1 L (11.4-16.0) gm/dL Sodium 136 L (137-145) mmol/L Potassium 3.4 L (3.5-5.1) mmol/L Chloride 93 L (98-107) mmol/L Carbon Dioxide 36 H (22-30) mmol/L Creatinine 0.39 L (0.52-1.04) mg/dL Glucose 169 H (74-99) mg/dL POC Glucose (mg/dL) (70-110) mg/dL 08/12/24 Range/Units 12:23 WBC (3.8-10.6) k/uL RBC (3.80-5.40) m/uL Hgb (11.4-16.0) gm/dL Neutrophils # (1.3-7.7) k/uL Lymphocytes # (1.0-4.8) k/uL Monocytes # (0-1.0) k/uL ABG pH (7.35-7.45) ABG pCO2 (35-45) mmHg ABG pO2 (83-108) mmHg ABG HCO3 (21-25) mmol/L ABG Total CO2 (19-24) mmol/L ABG O2 Saturation (94-97) % VBG pH (7.31-7.41) VBG HCO3 (24-28) mmol/L Hemoglobin (11.4-16.0) gm/dL Sodium (137-145) mmol/L Potassium (3.5-5.1) mmol/L Chloride (98-107) mmol/L Carbon Dioxide (22-30) mmol/L Creatinine (0.52-1.04) mg/dL Glucose (74-99) mg/dL POC Glucose (mg/dL) 170 H (70-110) mg/dL Microbiology - Last 24 Hours (Table) 08/06/24 10:29 Blood Culture - Final Blood Assessment and Plan (1) MRSA (methicillin resistant Staphylococcus aureus) infection Current Visit: Yes Status: Acute Code(s): A49.02 - METHICILLIN RESIS STAPH INFECTION, UNSP SITE SNOMED Code(s): 440355939 (2) Allergy to sulfa drugs Current Visit: Yes Status: Acute Code(s): Z88.2 - ALLERGY STATUS TO SULFONAMIDES SNOMED Code(s): 82673185 (3) Failure of outpatient treatment Current Visit: Yes Status: Acute Code(s): Z78.9 - OTHER SPECIFIED HEALTH STATUS SNOMED Code(s): 933845011 (4) Pneumonia Current Visit: Yes Status: Acute Code(s): J18.9 - PNEUMONIA, UNSPECIFIED ORGANISM SNOMED Code(s): 943726193 Plan: 1patient presented hospital with increasing shortness of breath also have a cough bringing up some bloodstained sputum chest x-ray with a left lobe infiltrate patient did have elevated white count 28,000 with recent outpatient sputum culture positive for Streptococcus agalactiae MRSA and Morganella likely pathogen 2sulfa allergy that would limit the number of antibiotics safe to use 3-patient is afebrile and the patient white count is slightly up today need to be monitored closely, patient is broadly covered with Eraxis along with R ocephin and vancomycin and monitor clinical course closely Family the bedside question was Dictation was produced using [employer] dictation software. please excuse any grammatical, word or spelling errors. Time with Patient: Less than 30
--- NOTE | 2024-08-14 13:23 | P.PN ---
Subjective Progress Note Date: 08/13/24 Principal diagnosis: Reason for follow-up is pneumonia Patient is a 63-year-old female with a past medical history significant for COPD PE seizure disorder pneumonia squamous cell cancer of the base of the tongue and neck patient presenting to the hospital for evaluation of increasing shortness of breath and the patient also have a cough with recent outpatient sputum culture positive for MRSA and Morganella. Patient chest x-ray right lower lobe infiltrate. On today's evaluation that is 08/13/2024,the patient continues to be afebrile, got intubated because of worsening of her respiratory status and apparently patient was bronched by pulmonary as well, the patient is currently requiring low-dose pressor support no vomiting diarrhea the changes reported by the nursing staff Patient white count is 21.1 creatinine 0.42 Objective - Vital Signs Vital signs: Vital Signs Temp 98.6 F 08/13/24 08:00 Pulse 131 H 08/13/24 10:15 Resp 16 08/13/24 10:15 BP 102/48 08/12/24 23:15 Pulse Ox 95 08/13/24 10:15 FiO2 50 08/13/24 08:00 Intake & Output 08/12/24 08/13/24 08/13/24 18:59 06:59 18:59 Intake Total 3069.006 2577.991 958.801 Output Total 860 745 105 Balance 100.443 5174.991 853.801 Weight 60.7 kg Intake: IV 800 1700 460 Anidulafungin 100 mg In 100 300 Sodium Chloride 0.9% 100 ml @ 84 mls/hr IVPB DAILY @1700 [facility] Rx#:[id number] Sodium Chloride 0.9% 1, 400 1200 160 000 ml @ 20 mls/hr IV . Q24H [facility] Rx#:[id number] Vancomycin 1,000 mg In 250 500 Sodium Chloride 0.9% 250 ml @ 125 mls/hr IVPB Q8H [facility] Rx#:[id number] cefTRIAXone 2 gm In 50 Sodium Chloride 0.9% 50 ml @ 100 mls/hr IVPB Q24HR [facility] Rx#:[id number] Intake, IV Titration 124.600 444.991 498.801 Amount Diltiazem 125 mg In 118.666 125 42.833 Sodium Chloride 0.9% 100 ml @ Per Protocol IV .Q0M [facility] Rx#:[id number] Norepinephrine 8 mg In 0.054 241.647 52.284 Sodium Chloride 0.9% 250 ml @ 0.03 MCG/KG/MIN 3. 251 mls/hr IV .Q24H [facility] Rx#:[id number] Piperacillin-Tazobactam 3 100 .375 gm In Sodium Chloride 0.9% 100 ml @ 25 mls/hr IVPB Q8HR [facility] Rx# :[id number] Potassium Chloride 20 meq 100 In Water For Injection 1 100ml.bag @ 50 mls/hr IVPB ONCE ONE Rx#: [id number] Potassium Chloride 20 meq 100 In Water For Injection 1 100ml.bag @ 50 mls/hr IVPB Q2H [facility] Rx#: [id number] propofoL 1,000 mg In 5.88 78.344 103.684 Empty Bag 1 bag @ 15 MCG/ KG/MIN 5.04 mls/hr IV . [id number] [facility] Rx#:[id number] Tube Feeding 410 Other 60 Output: Urine 860 745 105 Other: Voiding Method Indwelling Catheter Indwelling Catheter ABP, PAP, CO, CI - Last Documented Arterial Blood Pressure 109/62 - Exam GENERAL DESCRIPTION: Middle-age female intubated on the vent RESPIRATORY SYSTEM: Unlabored breathing , coarse breath sounds at bases HEART: S1 S2 regular rate and rhythm , ABDOMEN: Soft , no tenderness EXTREMITIES: No edema feet - Labs CBC & Chem 7: 08/14/24 03:36 08/14/24 12:05 Labs: Abnormal Lab Results - Last 24 Hours (Table) 08/12/24 08/12/24 08/12/24 Range/Units 10:50 12:23 17:33 WBC (3.8-10.6) k/uL RBC (3.80-5.40) m/uL Hgb (11.4-16.0) gm/dL Hct (34.0-46.0) % MCHC (31.0-37.0) g/dL Neutrophils # (1.3-7.7) k/uL ABG pCO2 66 H (35-45) mmHg ABG pO2 78 L (83-108) mmHg ABG HCO3 38 H (21-25) mmol/L ABG Total CO2 40 H (19-24) mmol/L ABG O2 Saturation (94-97) % VBG pH 7.46 H (7.31-7.41) VBG HCO3 37 H (24-28) mmol/L Hemoglobin 10.9 L (11.4-16.0) gm/dL Potassium (3.5-5.1) mmol/L Chloride (98-107) mmol/L Carbon Dioxide (22-30) mmol/L Creatinine (0.52-1.04) mg/dL Glucose (74-99) mg/dL POC Glucose (mg/dL) 170 H (70-110) mg/dL Calcium (8.4-10.2) mg/dL 08/13/24 08/13/24 08/13/24 Range/Units 03:15 03:16 03:16 WBC 21.1 H (3.8-10.6) k/uL RBC 3.58 L (3.80-5.40) m/uL Hgb 10.3 L (11.4-16.0) gm/dL Hct 33.7 L (34.0-46.0) % MCHC 30.7 L (31.0-37.0) g/dL Neutrophils # 18.8 H (1.3-7.7) k/uL ABG pCO2 (35-45) mmHg ABG pO2 (83-108) mmHg ABG HCO3 (21-25) mmol/L ABG Total CO2 (19-24) mmol/L ABG O2 Saturation (94-97) % VBG pH (7.31-7.41) VBG HCO3 (24-28) mmol/L Hemoglobin (11.4-16.0) gm/dL Potassium 3.2 L (3.5-5.1) mmol/L Chloride 97 L (98-107) mmol/L Carbon Dioxide 37 H (22-30) mmol/L Creatinine 0.42 L (0.52-1.04) mg/dL Glucose 147 H (74-99) mg/dL POC Glucose (mg/dL) 148 H (70-110) mg/dL Calcium 8.1 L (8.4-10.2) mg/dL 08/13/24 08/13/24 Range/Units 04:52 06:45 WBC (3.8-10.6) k/uL RBC (3.80-5.40) m/uL Hgb (11.4-16.0) gm/dL Hct (34.0-46.0) % MCHC (31.0-37.0) g/dL Neutrophils # (1.3-7.7) k/uL ABG pCO2 54 H (35-45) mmHg ABG pO2 (83-108) mmHg ABG HCO3 38 H (21-25) mmol/L ABG Total CO2 39 H (19-24) mmol/L ABG O2 Saturation 97.6 H (94-97) % VBG pH (7.31-7.41) VBG HCO3 (24-28) mmol/L Hemoglobin 10.2 L (11.4-16.0) gm/dL Potassium (3.5-5.1) mmol/L Chloride (98-107) mmol/L Carbon Dioxide (22-30) mmol/L Creatinine (0.52-1.04) mg/dL Glucose (74-99) mg/dL POC Glucose (mg/dL) 137 H (70-110) mg/dL Calcium (8.4-10.2) mg/dL Microbiology - Last 24 Hours (Table) 08/12/24 17:00 Gram Stain - Preliminary Sputum 08/11/24 12:31 Blood Culture - Preliminary Blood Assessment and Plan (1) MRSA (methicillin resistant Staphylococcus aureus) infection Current Visit: Yes Status: Acute Code(s): A49.02 - METHICILLIN RESIS STAPH INFECTION, UNSP SITE SNOMED Code(s): 122404166 (2) Allergy to sulfa drugs Current Visit: Yes Status: Acute Code(s): Z88.2 - ALLERGY STATUS TO SULFONAMIDES SNOMED Code(s): 59534066 (3) Failure of outpatient treatment Current Visit: Yes Status: Acute Code(s): Z78.9 - OTHER SPECIFIED HEALTH STATUS SNOMED Code(s): 965390012 (4) Pneumonia Current Visit: Yes Status: Acute Code(s): J18.9 - PNEUMONIA, UNSPECIFIED ORGANISM SNOMED Code(s): 336014839 Plan: 1patient presented hospital with increasing shortness of breath also have a cough bringing up some bloodstained sputum chest x-ray with a left lobe infiltrate patient did have elevated white count 28,000 with recent outpatient sputum culture positive for Streptococcus agalactiae MRSA and Morganella likely pathogen 2sulfa allergy that would limit the number of antibiotics safe to use 3-patient is afebrile however did have worsening of respiratory status requiring intubation also has bronchoscopy sputum culture has been requested again patient Rocephin has been switched over to Zosyn by pulmonary to continue along with vancomycin however will watch her kidney function closely with this antibiotic combination Family the bedside questions answered Dictation was produced using [employer] dictation software. please excuse any grammatical, word or spelling errors. Time with Patient: Less than 30
--- NOTE | 2024-08-14 13:24 | P.PN ---
Subjective Progress Note Date: 08/14/24 Principal diagnosis: Reason for follow-up is pneumonia Patient is a 63-year-old female with a past medical history significant for COPD PE seizure disorder pneumonia squamous cell cancer of the base of the tongue and neck patient presenting to the hospital for evaluation of increasing shortness of breath and the patient also have a cough with recent outpatient sputum culture positive for MRSA and Morganella. Patient chest x-ray right lower lobe infiltrate. On today's evaluation that is 08/14/2024,the patient remains to be afebrile, patient is on ventilator FiO2 is currently at 50% no significant purulent secretion through the ET or any other changes reported by the nursing staff. The patient white count down to 14.3 creatinine 0.40 Objective - Vital Signs Vital signs: Vital Signs Temp 99.2 F 08/14/24 08:00 Pulse 98 08/14/24 09:00 Resp 16 08/14/24 09:00 BP 125/78 08/14/24 09:00 Pulse Ox 95 08/14/24 09:00 FiO2 50 08/14/24 09:01 Intake & Output 08/13/24 08/14/24 08/14/24 18:59 06:59 18:59 Intake Total 2393.552 2269.736 625.322 Output Total 555 730 115 Balance 9777.439 3585.736 510.322 Weight 64.6 kg Intake: IV 720 1300 200 0.9 @ 100mls/hr 800 Anidulafungin 100 mg In 400 Sodium Chloride 0.9% 100 ml @ 84 mls/hr IVPB DAILY @1700 [facility] Rx#:[id number] Sodium Chloride 0.9% 1, 320 200 000 ml @ 20 mls/hr IV . Q24H [facility] Rx#:[id number] Vancomycin 1,000 mg In 500 Sodium Chloride 0.9% 250 ml @ 125 mls/hr IVPB Q8H [facility] Rx#:[id number] Intake, IV Titration 1673.552 769.736 365.322 Amount Amiodarone 450 mg In 250 228.616 Dextrose 5% in Water 250 ml @ 0.5 MG/MIN 16.667 mls/hr IV .Q15H [facility] Rx#: [id number] Anidulafungin 100 mg In 300 Sodium Chloride 0.9% 100 ml @ 84 mls/hr IVPB DAILY @1700 [facility] Rx#:[id number] Diltiazem 125 mg In 42.833 Sodium Chloride 0.9% 100 ml @ Per Protocol IV .Q0M [facility] Rx#:[id number] Norepinephrine 8 mg In 123.947 94.762 Sodium Chloride 0.9% 250 ml @ 0.03 MCG/KG/MIN 3. 251 mls/hr IV .Q24H [facility] Rx#:[id number] Piperacillin-Tazobactam 3 200 100 .375 gm In Sodium Chloride 0.9% 100 ml @ 25 mls/hr IVPB Q8HR [facility] Rx# :[id number] Potassium Chloride 10 meq 100 In Water For Injection 1 100ml.bag @ 100 mls/hr IVPB Q1H [facility] Rx#: [id number] Potassium Chloride 20 meq 200 In Water For Injection 1 100ml.bag @ 50 mls/hr IVPB ONCE ONE Rx#: [id number] Potassium Chloride 20 meq 100 In Water For Injection 1 100ml.bag @ 50 mls/hr IVPB ONCE ONE Rx#: [id number] Potassium Chloride 20 meq 100 In Water For Injection 1 100ml.bag @ 50 mls/hr IVPB Q2H [facility] Rx#: [id number] Sodium Chloride 0.9% 1, 300 100 000 ml @ 100 mls/hr IV . Q10H [facility] Rx#:[id number] Sodium Chloride 0.9% 1, 200 000 ml @ 20 mls/hr IV . Q24H [facility] Rx#:[id number] propofoL 1,000 mg In 156.772 141.12 70.56 Empty Bag 1 bag @ 15 MCG/ KG/MIN 5.04 mls/hr IV . [id number] [facility] Rx#:[id number] Tube Feeding 110 30 Other 90 30 Output: Urine 555 730 115 Other: Voiding Method Indwelling Catheter Indwelling Catheter Indwelling Catheter # Bowel Movements 1 ABP, PAP, CO, CI - Last Documented Arterial Blood Pressure 105/57 - Exam GENERAL DESCRIPTION: Middle-age female intubated on the vent RESPIRATORY SYSTEM: Unlabored breathing , coarse breath sounds at bases HEART: S1 S2 regular rate and rhythm , ABDOMEN: Soft , no tenderness EXTREMITIES: No edema feet - Labs CBC & Chem 7: 08/14/24 03:36 08/14/24 12:05 Labs: Abnormal Lab Results - Last 24 Hours (Table) 08/13/24 08/13/24 08/13/24 Range/Units 11:52 17:36 23:47 WBC (3.8-10.6) k/uL RBC (3.80-5.40) m/uL Hgb (11.4-16.0) gm/dL Hct (34.0-46.0) % ABG pCO2 (35-45) mmHg ABG pO2 (83-108) mmHg ABG HCO3 (21-25) mmol/L ABG Total CO2 (19-24) mmol/L Hemoglobin (11.4-16.0) gm/dL Carbon Dioxide (22-30) mmol/L Creatinine (0.52-1.04) mg/dL Glucose (74-99) mg/dL POC Glucose (mg/dL) 123 H 115 H 139 H (70-110) mg/dL Calcium (8.4-10.2) mg/dL 08/14/24 08/14/24 08/14/24 Range/Units 03:36 03:36 05:08 WBC 14.3 H (3.8-10.6) k/uL RBC 3.20 L (3.80-5.40) m/uL Hgb 9.5 L (11.4-16.0) gm/dL Hct 30.1 L (34.0-46.0) % ABG pCO2 (35-45) mmHg ABG pO2 (83-108) mmHg ABG HCO3 (21-25) mmol/L ABG Total CO2 (19-24) mmol/L Hemoglobin (11.4-16.0) gm/dL Carbon Dioxide 35 H (22-30) mmol/L Creatinine 0.40 L (0.52-1.04) mg/dL Glucose 125 H (74-99) mg/dL POC Glucose (mg/dL) 156 H (70-110) mg/dL Calcium 8.1 L (8.4-10.2) mg/dL 08/14/24 08/14/24 Range/Units 05:09 05:14 WBC (3.8-10.6) k/uL RBC (3.80-5.40) m/uL Hgb (11.4-16.0) gm/dL Hct (34.0-46.0) % ABG pCO2 51 H (35-45) mmHg ABG pO2 82 L (83-108) mmHg ABG HCO3 36 H (21-25) mmol/L ABG Total CO2 37 H (19-24) mmol/L Hemoglobin 9.4 L (11.4-16.0) gm/dL Carbon Dioxide (22-30) mmol/L Creatinine (0.52-1.04) mg/dL Glucose (74-99) mg/dL POC Glucose (mg/dL) 152 H (70-110) mg/dL Calcium (8.4-10.2) mg/dL Microbiology - Last 24 Hours (Table) 08/11/24 12:31 Blood Culture - Preliminary Blood 08/12/24 17:00 Gram Stain - Preliminary Sputum Assessment and Plan (1) MRSA (methicillin resistant Staphylococcus aureus) infection Current Visit: Yes Status: Acute Code(s): A49.02 - METHICILLIN RESIS STAPH INFECTION, UNSP SITE SNOMED Code(s): 281378147 (2) Allergy to sulfa drugs Current Visit: Yes Status: Acute Code(s): Z88.2 - ALLERGY STATUS TO SULFONAMIDES SNOMED Code(s): 54532713 (3) Failure of outpatient treatment Current Visit: Yes Status: Acute Code(s): Z78.9 - OTHER SPECIFIED HEALTH STATUS SNOMED Code(s): 913734365 (4) Pneumonia Current Visit: Yes Status: Acute Code(s): J18.9 - PNEUMONIA, UNSPECIFIED ORGANISM SNOMED Code(s): 102843150 Plan: 1patient presented hospital with increasing shortness of breath also have a cough bringing up some bloodstained sputum chest x-ray with a left lobe infil trate patient did have elevated white count 28,000 with recent outpatient sputum culture positive for Streptococcus agalactiae MRSA and Morganella likely pathogen 2sulfa allergy that would limit the number of antibiotics safe to use 3-patient is afebrile and the patient white count is trending down repeat cultures are currently pending 4patient is current combination of Eraxis Zosyn and vancomycin patient creatinine is stable currently at 0.42 and need to be monitored closely Family at the bedside question answered Dictation was produced using [employer] dictation software. please excuse any gra mmatical, word or spelling errors. Time with Patient: Less than 30
--- NOTE | 2024-08-14 13:36 | P.PN ---
Subjective This is a pleasant 63 years old female with past medical history of multiple medical problems. Patient called her PCP office of Dr. Anderson and talked to his nurse practitioner Lynnette from she sees in the office complaining from little shortness of breath for the last 4 to 5 days with some cough and phlegm Associated with left lateral chest pain about 7/10 that is worse with coughing and deep breath. 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 Will BMP and LFTs were unremarkable as well as INR proBNP is 248 Chest x-ray showing left lower lobe infiltrate suspicious for pneumonia Patient was started on IV vancomycin and Zosyn and normal saline with pulmonary and ID team consult 08/07/2023 Patient sitting up in bed looks similar to yesterday, complaining from some pain in her left side of the chest but it looks controlled and patient is not in distress No significant dyspnea or tachypnea, she can go to the bathroom by herself with no exertional dyspnea However her oxygen requirement increased from 4 L up to 10 L today. Blood pressure is borderline and patient says usually her blood pressure on the low side Repeat chest x-ray showing similar left lower lobe infiltrate. Her legs are swollen we will going to check ultrasound of the leg given risk factors although she does not have much symptoms Patient remains on IV fluids normal saline at 130 and IV antibiotics with IV vancomycin and ceftriaxone Patient already on Cymbalta, she is asking to start her BuSpar but she is not sure about the dose, is going to be resumed Ad Operations Coordinator consult is on for tube feeding 08/08 Patient is mildly tachypneic, not using accessory muscles of breathing, her oxygen requirement increased since yesterday to 10 to 11 L/min She has bilateral leg swelling, mild ultrasound of the leg is negative for DVT. Further workup including sputum culture and blood culture are pending. Blood pressure improved Remains on IV vancomycin and ceftriaxone IV fluid was lower dose 130 down to 75 mL/h Pro- Calcitonin is negative Resuming the care of the patient today 08/11 Patient respiratory status got worse and she was moved to the ICU. 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 She is saturating about 92% on this current BiPAP setting. She denies chest pain She still mildly tachycardic with heart rate 126 with A-fib and RVR, currently she has been followed by bowling alley operator and getting Cardizem drip at 15 mg/h. Discussed the case with pulmonary service regarding her worsening send respiratory symptoms. Patient may require intubation patient is agreeable however because of her mild surgery will be very difficult situation. Therefore they will try to give her some more time before needed intervention. Repeat chest x-ray from this morning showing worsening pneumonia Yesterday pro- Calcitonin was worsened and her antibiotics were updated per ID team, currently on IV vancomycin, ceftriaxone and Eraxis. Also she is continued on Eliquis for new diagnosis of A-fib. Also she is on aspirin 81 mg, oral 1/8 Yesterday night patient still complaining from respiratory distress had to be intubated and currently she is on mechanical ventilation. Her blood pressure is stable and she is afebrile. Labs showing worsening leukocytosis to 21,000, hemoglobin slightly less than 10.3 Patient remains on broad-spectrum antibiotics with IV vancomycin,Ceftriaxone and Eraxis She is also on amiodarone drip, Eliquis 5 mg twice daily and aspirin 81 mg. 08/14 Patient remains in the ICU intubated and sedated. Her FiO2 today was 50% She is afebrile and rest of vitals look stable Leukocytosis is also improving down to 14,000, hemoglobin stable at 9.5. Patient currently covered with Eliquis and metoprolol and digoxin x 1 per Internet Assessor She remains on IV vancomycin, Zosyn and Eraxis Abdominal wound is closed with no drains Rios catheter in place Active Medications Generic Name Dose Route Start Last Admin Trade Name Freq PRN Reason Stop Dose Admin Albuterol/Ipratropium 3 ml 08/09/24 16:00 08/13/24 20:23 Ipratropium-Albuterol 3 Ml Neb INHALATION 3 ml RT-QID BLAKE Administration Apixaban 5 mg 08/07/24 09:00 08/13/24 21:03 Apixaban 5 Mg Tab PEG/G-TUBE 5 mg BID BLAKE Administration Protocol Aspirin 81 mg 08/07/24 09:00 08/13/24 09:22 Aspirin 81 Mg PEG/G-TUBE 81 mg DAILY BLAKE Administration Buspirone HCl 5 mg 08/07/24 16:00 08/13/24 21:04 Buspirone Hcl 5 Mg Tab PO 5 mg TID BLAKE Administration Chlorhexidine Gluconate 15 ml 08/12/24 21:00 08/13/24 21:03 Chlorhexidine Gluconate 15 Ml Cup MUCOUS MEM 15 ml BID BLAKE Administration Duloxetine HCl 30 mg 08/07/24 09:00 08/13/24 09:22 Duloxetine Hcl 30 Mg Capsule.Dr PO 30 mg DAILY BLAKE Administration Famotidine 20 mg 08/07/24 09:00 08/13/24 21:03 Famotidine 20 Mg/2 Ml Vial IV 20 mg Q12HR BLAKE Administration Gabapentin 900 mg 08/06/24 22:00 08/13/24 21:04 Gabapentin 300 Mg Cap PEG/G-TUBE 900 mg TID BLAKE Administration Guaifenesin 200 mg 08/11/24 11:00 08/14/24 04:17 Guaifenesin Syrup 100mg/5ml 200 Mg/10 Ml Cup PO 200 mg Q4HR BLAKE Administration Vancomycin HCl 1,000 mg/ 250 mls @ 125 mls/hr 08/08/24 20:00 08/14/24 04:20 Sodium Chloride IVPB 125 mls/hr Q8H BLAKE Administration Anidulafungin 100 mg/ Sodium 100 mls @ 84 mls/hr 08/10/24 17:00 08/13/24 16:52 Chloride IVPB 84 mls/hr DAILY@1700 BLAKE Administration Protocol Amiodarone HCl 450 mg/ 250 mls @ 16.667 mls/hr 08/12/24 20:00 08/14/24 02:00 Dextrose/Water IV 0.5 mg/min .Q15H BLAKE 16.667 mls/hr Administration Protocol 0.5 MG/MIN Norepinephrine Bitartrate 8 mg 258 mls @ 3.251 mls/hr 08/12/24 16:45 08/13/24 16:38 / Sodium Chloride IV 0.05 mcg/kg/min .Q24H BLAKE 5.418 mls/hr Titration Protocol 0.03 MCG/KG/MIN Propofol 1,000 mg/ IV Solution 100 mls @ 5.04 mls/hr 08/12/24 20:00 08/14/24 02:00 IV 35 mcg/kg/min .[id number] BLAKE 11.76 mls/hr Administration Protocol 15 MCG/KG/MIN Piperacillin Sod/Tazobactam 100 mls @ 25 mls/hr 08/13/24 09:00 08/14/24 00:06 Sod 3.375 gm/ Sodium Chloride IVPB 25 mls/hr Q8HR BLAKE Administration Sodium Chloride 1,000 mls @ 100 mls/hr 08/14/24 03:00 08/14/24 02:55 Saline 0.9% IV 100 mls/hr .Q10H BLAKE Administration Potassium Chloride 20 meq/ IV 100 mls @ 50 mls/hr 08/14/24 07:00 Solution IVPB 08/14/24 08:59 ONCE ONE Levothyroxine Sodium 75 mcg 08/06/24 21:00 08/13/24 09:22 Levothyroxine 75 Mcg Tab PEG/G-TUBE 75 mcg DAILY BLAKE Administration Metoprolol Tartrate 25 mg 08/10/24 23:30 08/13/24 21:03 Metoprolol Tartrate 25 Mg Tab PO 25 mg BID BLAKE Administration Miscellaneous Information 1 each 08/06/24 12:21 Pneumonia Protocol Utilized 1 Each Misc PO ONCE PRN Per Protocol Miscellaneous Information 1 each 08/12/24 10:04 Potassium Replacement Protocol 1 Each Misc MISCELLANE DAILY PRN Per Protocol Protocol Multi-Ingredient Ointment 1 applic 08/13/24 09:47 Zinc Oxide 20% Oint 28.4 Gm Tube TOPICAL BID PRN Skin Irritation Protocol Nystatin 500,000 unit 08/07/24 09:00 08/13/24 21:04 Nystatin 100,000 Unit/Ml Susp 500,000 Unit/5 Ml Cup PO 500,000 unit QID BLAKE Administration Protocol Ondansetron HCl 4 mg 08/08/24 22:01 08/12/24 15:57 Ondansetron 4 Mg/2 Ml Vial IVP 4 mg Q6HR PRN Administration Nausea And Vomiting Oxycodone HCl 15 mg 08/06/24 21:00 08/14/24 04:20 Oxycodone Hcl 5 Mg Tab PO 15 mg Q4H BLAKE Administration Objective - Vital Signs Vital signs: Vital Signs Temp 98.2 F 08/14/24 04:00 Pulse 96 08/14/24 05:15 Resp 16 08/14/24 05:15 BP 126/73 08/14/24 05:15 Pulse Ox 96 08/14/24 05:15 FiO2 50 08/14/24 04:15 Intake & Output 08/13/24 08/13/24 08/14/24 06:59 18:59 06:59 Intake Total 2144.991 2393.552 2049.736 Output Total 745 555 655 Balance 2453.154 6913.552 1394.736 Weight 60.7 kg 64.6 kg Intake: IV 7319 778 7609 0.9 @ 100mls/hr 800 Anidulafungin 100 mg In 400 Sodium Chloride 0.9% 100 ml @ 84 mls/hr IVPB DAILY @1700 [facility] Rx#:[id number] Sodium Chloride 0.9% 1, 1200 320 000 ml @ 20 mls/hr IV . Q24H [facility] Rx#:[id number] Vancomycin 1,000 mg In 500 500 Sodium Chloride 0.9% 250 ml @ 125 mls/hr IVPB Q8H [facility] Rx#:[id number] Intake, IV Titration 041.522 7175.552 569.736 Amount Amiodarone 450 mg In 250 228.616 Dextrose 5% in Water 250 ml @ 0.5 MG/MIN 16.667 mls/hr IV .Q15H [facility] Rx#: [id number] Anidulafungin 100 mg In 300 Sodium Chloride 0.9% 100 ml @ 84 mls/hr IVPB DAILY @1700 [facility] Rx#:[id number] Diltiazem 125 mg In 125 42.833 Sodium Chloride 0.9% 100 ml @ Per Protocol IV .Q0M [facility] Rx#:[id number] Norepinephrine 8 mg In 241.647 123.947 Sodium Chloride 0.9% 250 ml @ 0.03 MCG/KG/MIN 3. 251 mls/hr IV .Q24H [facility] Rx#:[id number] Piperacillin-Tazobactam 3 200 100 .375 gm In Sodium Chloride 0.9% 100 ml @ 25 mls/hr IVPB Q8HR [facility] Rx# :[id number] Potassium Chloride 10 meq 100 In Water For Injection 1 100ml.bag @ 100 mls/hr IVPB Q1H [facility] Rx#: [id number] Potassium Chloride 20 meq 200 In Water For Injection 1 100ml.bag @ 50 mls/hr IVPB ONCE ONE Rx#: [id number] Potassium Chloride 20 meq 100 In Water For Injection 1 100ml.bag @ 50 mls/hr IVPB Q2H [facility] Rx#: [id number] Sodium Chloride 0.9% 1, 100 000 ml @ 100 mls/hr IV . Q10H [facility] Rx#:[id number] Sodium Chloride 0.9% 1, 200 000 ml @ 20 mls/hr IV . Q24H [facility] Rx#:[id number] propofoL 1,000 mg In 78.344 156.772 141.12 Empty Bag 1 bag @ 15 MCG/ KG/MIN 5.04 mls/hr IV . [id number] [facility] Rx#:[id number] Tube Feeding 90 Other 90 Output: Urine 745 555 655 Other: Voiding Method Indwelling Catheter Indwelling Catheter Indwelling Catheter ABP, PAP, CO, CI - Last Documented Arterial Blood Pressure 102/56 - Exam GENERAL: The patient is alert and oriented x3, not in any acute distress. Well developed, well nourished. -HEENT: Pupils are round and equally reacting to light. EOMI. No scleral icterus. No conjunctival pallor. Normocephalic, atraumatic. No pharyngeal erythema. No thyromegaly. Healed scar of the left jaw surgery CARDIOVASCULAR: S1 and S2 present. No murmurs, rubs, or gallops. -PULMONARY: Chest is clear to auscultation, no wheezing , no crackles. Decreased breath sounds bilaterally -ABDOMEN: Soft, nontender, nondistended, normoactive bowel sounds. No palpable organomegaly. PEG tube in place MUSCULOSKELETAL: No joint swelling or deformity. -EXTREMITIES: No cyanosis, clubbing, mild bilateral leg swelling. NEUROLOGICAL: Gross neurological examination did not reveal any focal deficits. SKIN: No rashes. no petechiae. - Labs CBC & Chem 7: 08/14/24 03:36 08/14/24 03:36 Labs: Abnormal Lab Results - Last 24 Hours (Table) 08/13/24 08/13/24 08/13/24 Range/Units 06:45 11:52 17:36 WBC (3.8-10.6) k/uL RBC (3.80-5.40) m/uL Hgb (11.4-16.0) gm/dL Hct (34.0-46.0) % ABG pCO2 (35-45) mmHg ABG pO2 (83-108) mmHg ABG HCO3 (21-25) mmol/L ABG Total CO2 (19-24) mmol/L Hemoglobin (11.4-16.0) gm/dL Carbon Dioxide (22-30) mmol/L Creatinine (0.52-1.04) mg/dL Glucose (74-99) mg/dL POC Glucose (mg/dL) 137 H 123 H 115 H (70-110) mg/dL Calcium (8.4-10.2) mg/dL 08/13/24 08/14/24 08/14/24 Range/Units 23:47 03:36 03:36 WBC 14.3 H (3.8-10.6) k/uL RBC 3.20 L (3.80-5.40) m/uL Hgb 9.5 L (11.4-16.0) gm/dL Hct 30.1 L (34.0-46.0) % ABG pCO2 (35-45) mmHg ABG pO2 (83-108) mmHg ABG HCO3 (21-25) mmol/L ABG Total CO2 (19-24) mmol/L Hemoglobin (11.4-16.0) gm/dL Carbon Dioxide 35 H (22-30) mmol/L Creatinine 0.40 L (0.52-1.04) mg/dL Glucose 125 H (74-99) mg/dL POC Glucose (mg/dL) 139 H (70-110) mg/dL Calcium 8.1 L (8.4-10.2) mg/dL 08/14/24 08/14/24 08/14/24 Range/Units 05:08 05:09 05:14 WBC (3.8-10.6) k/uL RBC (3.80-5.40) m/uL Hgb (11.4-16.0) gm/dL Hct (34.0-46.0) % ABG pCO2 51 H (35-45) mmHg ABG pO2 82 L (83-108) mmHg ABG HCO3 36 H (21-25) mmol/L ABG Total CO2 37 H (19-24) mmol/L Hemoglobin 9.4 L (11.4-16.0) gm/dL Carbon Dioxide (22-30) mmol/L Creatinine (0.52-1.04) mg/dL Glucose (74-99) mg/dL POC Glucose (mg/dL) 156 H 152 H (70-110) mg/dL Calcium (8.4-10.2) mg/dL Microbiology - Last 24 Hours (Table) 08/11/24 12:31 Blood Culture - Preliminary Blood 08/12/24 17:00 Gram Stain - Preliminary Sputum Assessment and Plan Assessment: Left lower lobe pneumonia, versus bilateral basal pneumonia suspicious for aspiration pneumonia A-fib with RVR Acute hypoxic respiratory failure secondary to above, status post intubation and mechanical ventilation on 08/12 Mild calorie protein malnutrition History of mouth cancer status post left show replacement, currently she uses PEG tube for nutrition COPD, not in acute acute issue History of pneumonia not on anticoagulation History of seizure Plan: Continue with antibiotics with IV vancomycin and ceftriaxone and eraxis per ID team Infectious disease consult regarding antibiotic management Patient was started on normal saline y at 100 mL/h Pulmonary team consult for mechanical ventilation. Continue with oxygen therapy with close monitoring Follow-up culture results Cardiology consult, continue with Eliquis and metoprolol echocardiogram reviewed Labs and medication were reviewed.. Continue same treatment. Continue with symptomatic treatment. Resume home medication. Monitor labs and vitals. DVT and GI prophylaxis. Further recommendations as per clinical course of the patient DVT prophylaxis: Eliquis GI Prophylaxis: Pepcid PT/OT: Pending Prognosis is guarded
--- NOTE | 2024-08-14 14:31 | P.PN ---
Subjective Progress Note Date: 08/14/24 08/11/2023, the patient is being seen for a follow-up. Is a 63-year-old female patient with past medical history of oral cancer and previous radical neck dissection followed by radiation therapy and reconstructive surgery and the patient suffers from chronic dysphagia and the patient has PEG tube. The pat ient also has previous history of DVT/pulmonary embolism maintained on anticoagulation. She has history of atrial fibrillation, hypothyroidism and seizure disorders. For now, the patient is in the intensive care unit for an acute hypoxic respiratory failure. The patient is currently on Airvo at 60 L with an FiO2 of 90% %. Chest x-ray shows bilateral lower lobe consolidation and possibly some small effusions. Antibiotic coverage is with IV Eraxis, vancomycin and Rocephin. Sputum samples collected on 08/06/2024 was consistent with MRSA, Morganella morganii and strep agalactiae. The patient had developed significant leukocytosis which is downtrending and the white cell count from yesterday was down to 16. Patient also developed atrial fibrillation with rapid ventricular response over the past 24 to 48 hours. The patient based on that was started on Cardizem drip and she is already anticoagulated with Eliquis. She remains on Cardizem at 10 mg an hour. She is also on metoprolol 25 mg p.o. twice daily for rate control. The patient is also on oxygen and Airvo settings this morning is 6 L with an FiO2 of 90%. The patient has a J-tube for feeding receiving Jevity 1.5 at the rate of 40 cc an hour. The J-tube was replaced yesterday. This was done by general surgery. CAT scan of the abdomen done on 08/09/2024 showed that the jejunostomy tube was grossly intact. Nevertheless, it there was evidence of lower lobe consolidations bilaterally worse on the left. 08/12/2023, the patient is being seen for a follow-up. Condition is gradually compensated over the past 24 hours and the patient has become more hypoxic related to her pneumonia. Noted the patient was on high flow oxygen, Airvo 60 L with an FiO2 of 90%. Subsequently, she was given 100% nonrebreather facemask and the patient continued to have episodes of desaturation. At a later stage, overnight, the patient was placed on a BiPAP and currently she is on a BiPAP pressure of 15 over 10 cm of water with an FiO2 of 100%. Initially, this morning, she was still desaturating and her blood gas was obtained which showed a pH of 7.33 with a pCO2 of 74 and pO2 of 49. I attended on this patient immediately. I wanted to intubate the patient. However, I do acknowledge that this is going to be an extremely difficult intubation as the patient does not have any ability to open up her mouth due to chronic scarring in her neck muscles and scarring of her jaw and her neck is significantly scarred up and stiff related to previous radiation therapy. While adjusting the BiPAP mask, we improved the leaks and the pulse ox improved currently she is pulse oxing in order of 91 to 93%. Reviewed the chest x-ray from today shows diffuse bilateral airspace disease consistent with pneumonia. No evidence of any pneumothorax. The patient continues to have a congested cough. No significant sputum production. Despite his ongoing hypoxemia, she is breathing comfortably. Her current respiratory rate is in the mid 20s. She is still awake and communicating. No fever. No hemodynamic instability. She remains in atrial fibrillation. Antibiotic coverage remains unchanged and the patient remains on a combination of Rocephin and vancomycin and Eraxis. The fluid balance has been negative over the past 24 hours. The white cell count is at 18.10.8 and this is. Calcium level 6. The patient remains on DuoNeb nebulized treatments. In terms of her ongoing atrial fibrillation, she is on Cardizem drip at 15 mg an hour. She remains on anticoagulation with Eliquis. She is also on metoprololAt a dose of 25 mg p.o. twice a day. No hypotension. Hemodynamically stable. IV fluids are currently at KVO. On 08/13/2024, the patient is being seen for a follow-up. As mentioned, the patient was intubated yesterday and placed on mechanical ventilation due to bilateral pneumonia that was further complicated by an episode of aspiration. This morning, the patient is sedated and the patient is calm and comfortable. She is on assist-control mode of mechanical ventilation. He is on a rate of 16 with a tidal volume of 350 and FiO2 of 50% with a PEEP of 8. The blood gas showed a pH of 7.45 with a pCO2 of 54 and pO2 of 91. Chest x-ray is consistent with diffuse bilateral pulmonary filtrates/pneumonia. Bronchoscopy was also done and another bronchial aspirate was obtained, pending further cultures. She is calm and comfortable on propofol running at 35 mcg/kg/min. Noted post intubation, the patient became hypotensive. Received a liter bolus and currently she is on normal saline at rate of 100 cc an hour. Norepinephrine is running at 0.15 mcg/kg/min. She remains in atrial fibrillation. She is on amiodarone drip at 0.5 mg/min and she is also on Cardizem drip. Slightly tachycardic. Remains on Rocephin and vancomycin and Rocephin will be switched to Zosyn. Lasix will also to be discontinued. Enteral feeding is to be started today. The white cell count of 21 with a hemoglobin 10.3 and a platelet count of 427. Sodium is at 138, BUN 13 creatinine 0.4 and a potassium level is at 3.2 with a bicarb level of 37 On 08/14/2024, the patient is being seen for a follow-up. The patient remains intubated on the mechanical ventilator. Earlier this morning, the patient is on a 30 mcg of propofol and the patient is adequately sedated. She remains on the mechanical ventilator assist-control mode with rate of 16, tidal volume of 350, FiO2 of 50% with a PEEP of 8. Blood gases show a pH of 7.41 with a pCO2 of 51 and pO2 of 82. No significant respiratory secretions. The sputum cultures and the bronchial aspirate this was collected and sent for culture showed presumptive Staph aureus and gram-negative bacillus and the patient remains on broad-spectrum antibiotics and the patient remains on a combination of Zosyn and vancomycin. Chest x-ray findings are essentially unchanged and the patient has diffuse bilateral patchy pulmonary infiltrates consistent with pneumonia. Meanwhile, the patient is on normal saline at rate of 100 cc an hour. Hemodynamically, she still requiring pressors and the patient is on norepinephrine at 0.06 mcg/kg/min. Earlier this morning, the patient was still tachycardic while being in atrial fibrillation. She was started on Cardizem drip at 5 mg an hour by cardiology. She remains on amiodarone 0.5 mg/min. The patient was also given metoprolol 25 mg p.o. twice daily and the patient remains on anticoagulation with Eliquis. She is receiving enteral feeding for nutritional support with vital high-protein at rate of 10 cc an hour. The white cell count is 14.3 with hemoglobin 9.5 and a platelet count of 375. Sodium is at 137, potassium is at 3.6, BUN is 8. The patient with a creatinine of 0.4 Objective - Vital Signs Vital signs: Vital Signs Temp 98.2 F 08/14/24 04:00 Pulse 118 H 08/14/24 07:15 Resp 16 08/14/24 07:15 BP 128/76 08/14/24 07:15 Pulse Ox 97 08/14/24 07:15 FiO2 50 08/14/24 08:18 Intake & Output 08/13/24 08/14/24 08/14/24 18:59 06:59 18:59 Intake Total 2393.552 2269.736 350.676 Output Total 555 730 40 Balance 2362.754 7189.736 310.676 Weight 64.6 kg Intake: IV 720 1300 0.9 @ 100mls/hr 800 Anidulafungin 100 mg In 400 Sodium Chloride 0.9% 100 ml @ 84 mls/hr IVPB DAILY @1700 [facility] Rx#:[id number] Sodium Chloride 0.9% 1, 320 000 ml @ 20 mls/hr IV . Q24H [facility] Rx#:[id number] Vancomycin 1,000 mg In 500 Sodium Chloride 0.9% 250 ml @ 125 mls/hr IVPB Q8H [facility] Rx#:[id number] Intake, IV Titration 1673.552 769.736 340.676 Amount Amiodarone 450 mg In 250 228.616 Dextrose 5% in Water 250 ml @ 0.5 MG/MIN 16.667 mls/hr IV .Q15H [facility] Rx#: [id number] Anidulafungin 100 mg In 300 Sodium Chloride 0.9% 100 ml @ 84 mls/hr IVPB DAILY @1700 [facility] Rx#:[id number] Diltiazem 125 mg In 42.833 Sodium Chloride 0.9% 100 ml @ Per Protocol IV .Q0M [facility] Rx#:[id number] Norepinephrine 8 mg In 123.947 79.916 Sodium Chloride 0.9% 250 ml @ 0.03 MCG/KG/MIN 3. 251 mls/hr IV .Q24H [facility] Rx#:[id number] Piperacillin-Tazobactam 3 200 100 .375 gm In Sodium Chloride 0.9% 100 ml @ 25 mls/hr IVPB Q8HR [facility] Rx# :[id number] Potassium Chloride 10 meq 100 In Water For Injection 1 100ml.bag @ 100 mls/hr IVPB Q1H [facility] Rx#: [id number] Potassium Chloride 20 meq 200 In Water For Injection 1 100ml.bag @ 50 mls/hr IVPB ONCE ONE Rx#: [id number] Potassium Chloride 20 meq 100 In Water For Injection 1 100ml.bag @ 50 mls/hr IVPB ONCE ONE Rx#: [id number] Potassium Chloride 20 meq 100 In Water For Injection 1 100ml.bag @ 50 mls/hr IVPB Q2H [facility] Rx#: [id number] Sodium Chloride 0.9% 1, 300 100 000 ml @ 100 mls/hr IV . Q10H [facility] Rx#:[id number] Sodium Chloride 0.9% 1, 200 000 ml @ 20 mls/hr IV . Q24H [facility] Rx#:[id number] propofoL 1,000 mg In 156.772 141.12 60.76 Empty Bag 1 bag @ 15 MCG/ KG/MIN 5.04 mls/hr IV . [id number] [facility] Rx#:[id number] Tube Feeding 110 10 Other 90 Output: Urine 555 730 40 Other: Voiding Method Indwelling Catheter Indwelling Catheter # Bowel Movements 1 ABP, PAP, CO, CI - Last Documented Arterial Blood Pressure 122/65 - Exam GENERAL EXAM: Alert, 63-year-old female, sedated on propofol,, comfortable, orotracheal tube is in good position. HEAD: Normocephalic and atraumatic EYES: Normal reaction of pupils, equal size. NOSE: Clear with pink turbinates. THROAT: No erythema or exudates. Edentulous, with previous reconstructive surgery. Unable to open her mouth as the patient has jaw dysfunction and scarring in her neck muscles. NECK: No masses, no JVD. Significant neck deformity related to radiation- induced scarring and previous neck surgery. CHEST: No chest wall deformity. LUNGS: Equal air entry with bilateral rhonchi and wheezing with left lower lobe inspiratory crackles. CVS: S1 and S2 normal with no audible murmur, irregular rhythm. No extra heart sounds ABDOMEN: No hepatosplenomegaly, active bowel sounds, no guarding or rigidity. There are two percutaneous feeding tubes. SPINE: No scoliosis or deformity SKIN: No rashes CENTRAL NERVOUS SYSTEM: Sedated, calm and comfortable EXTREMITIES: There is no peripheral edema, clubbing, or cyanosis. Peripheral pulses are intact. - Labs CBC & Chem 7: 08/14/24 03:36 08/14/24 12:05 Labs: Abnormal Lab Results - Last 24 Hours (Table) 08/13/24 08/13/24 08/13/24 Range/Units 11:52 17:36 23:47 WBC (3.8-10.6) k/uL RBC (3.80-5.40) m/uL Hgb (11.4-16.0) gm/dL Hct (34.0-46.0) % ABG pCO2 (35-45) mmHg ABG pO2 (83-108) mmHg ABG HCO3 (21-25) mmol/L ABG Total CO2 (19-24) mmol/L Hemoglobin (11.4-16.0) gm/dL Carbon Dioxide (22-30) mmol/L Creatinine (0.52-1.04) mg/dL Glucose (74-99) mg/dL POC Glucose (mg/dL) 123 H 115 H 139 H (70-110) mg/dL Calcium (8.4-10.2) mg/dL 08/14/24 08/14/24 08/14/24 Range/Units 03:36 03:36 05:08 WBC 14.3 H (3.8-10.6) k/uL RBC 3.20 L (3.80-5.40) m/uL Hgb 9.5 L (11.4-16.0) gm/dL Hct 30.1 L (34.0-46.0) % ABG pCO2 (35-45) mmHg ABG pO2 (83-108) mmHg ABG HCO3 (21-25) mmol/L ABG Total CO2 (19-24) mmol/L Hemoglobin (11.4-16.0) gm/dL Carbon Dioxide 35 H (22-30) mmol/L Creatinine 0.40 L (0.52-1.04) mg/dL Glucose 125 H (74-99) mg/dL POC Glucose (mg/dL) 156 H (70-110) mg/dL Calcium 8.1 L (8.4-10.2) mg/dL 08/14/24 08/14/24 Range/Units 05:09 05:14 WBC (3.8-10.6) k/uL RBC (3.80-5.40) m/uL Hgb (11.4-16.0) gm/dL Hct (34.0-46.0) % ABG pCO2 51 H (35-45) mmHg ABG pO2 82 L (83-108) mmHg ABG HCO3 36 H (21-25) mmol/L ABG Total CO2 37 H (19-24) mmol/L Hemoglobin 9.4 L (11.4-16.0) gm/dL Carbon Dioxide (22-30) mmol/L Creatinine (0.52-1.04) mg/dL Glucose (74-99) mg/dL POC Glucose (mg/dL) 152 H (70-110) mg/dL Calcium (8.4-10.2) mg/dL Microbiology - Last 24 Hours (Table) 08/11/24 12:31 Blood Culture - Preliminary Blood 08/12/24 17:00 Gram Stain - Preliminary Sputum Assessment and Plan Plan: Acute hypoxic respiratory failure secondary to bilateral pneumonia with subsequent aspiration. The patient is currently intubated on mechanical ventilator. The patient was intubated on 08/12/2024. Remains on broad-spectrum antibiotics and the patient remains on a combination of Zosyn and vancomycin. Bilateral lower lobe pneumonia, bacterial, likely related to aspiration, sputum sample obtained 08/01 and again on August 06, 2024 positive for MRSA, Earnest kevin, and group B strep and Rosa. Failed outpatient treatment. The patient's pneumonia is polymicrobial. Noted the patient failed Airvo and BiPAP treatment for respiratory support and the patient had to be intubated on 08/12/2024. She did encounter another bout of aspiration in the intensive care unit. Repeat bronchoscopy endobronchial aspirate was obtained for culturing purposes. The bronchial aspirate and lavage is growing Staph aureus and gram- negative bacillus. Will keep the same antibiotic coverage. Chest x-ray findings are essentially unchanged. Sepsis with secondary hypotension, currently on norepinephrine infusion Acute leukocytosis, secondary to above Atrial fibrillation with a rapid ventricular response, Currently on Cardizem drip and amiodarone drip anticoagulated with Eliquis, echocardiogram is showing a preserved LV function. The patient is also metoprolol 25 mg p.o. twice daily and the patient was started on Cardizem drip at 5 mg an hour History of recurrent aspiration pneumonia and MRSA pneumonia. 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 Nothing by mouth History of radiation pneumonitis Xerostomia History of DVT/PE, anticoagulated on Eliquis History of hypothyroidism History of seizure disorder Plan: Continue vent support, no change in mechanical ventilator Keep the patient sedated on propofol Continue normal saline at rate of 100 cc an hour Continue Zosyn and vancomycin pending further cultures from the bronchoalveolar lavage Continue amiodarone drip at 0.5 mg/min Cardizem drip at 5 mg an hour Metoprolol 25 mg p.o. twice a day Monitor the heart rate Anticoagulated with Eliquis Continue Eraxis per ID Continue bronchodilators Restart Jevity tube feedings, the G-tube has been replaced. Will advance diet as tolerated currently on vital high-protein at rate of 10 cc an hour Will continue to follow Condition is obviously critical. Will continue to follow make further recommendations based on progress. Evaluation was done more than 30 minutes. Time with Patient: Greater than 30
[2024-08-14 17:39] LABS: Glucose,Whole Blood 137 mg/dL (70-110)
[2024-08-14 23:37] LABS: Glucose,Whole Blood 147 mg/dL (70-110)
[2024-08-15] MEDS: POTASSIUM BICARBONATE/CIT AC 20 MEQ TABLET.EFF NG-TUBE SCH ×2 (01:41→08:10)
[2024-08-15 05:33] LABS: Basophils % (A) 0 %; Eosinophils # (A) 0.2 k/uL (0-0.7); Eosinophils % (A) 2 %; HCT 29.9 % (34.0-46.0); HGB 9.2 gm/dL (11.4-16.0); Hypochromasia Marked; Lymphocytes # (A) 0.9 k/uL (1.0-4.8); Lymphocytes % (A) 7 %; MCHC 30.7 g/dL (31.0-37.0); MCV 94.3 fL (80.0-100.0); Mean Platelet Volume 9.1; Monocytes # (A) 0.6 k/uL (0-1.0); Monocytes % (A) 5 %; Neutrophils # (A) 10.8 k/uL (1.3-7.7); Neutrophils % (A) 85 %; Platelet Count 377 k/uL (150-450); RBC 3.17 m/uL (3.80-5.40); RDW 15.1 % (11.5-15.5); WBC 12.7 k/uL (3.8-10.6)
[2024-08-15 05:45] LABS: ABG Base Excess 6.8 mmol/L; ABG HCO3 33 mmol/L (21-25); ABG Oxygen Saturation 98.2 % (94-97); ABG PCO2 52 mmHg (35-45); ABG PH 7.41 (7.35-7.45); ABG PO2 107 mmHg (83-108); ABG TCO2 34 mmol/L (19-24); Allen Test Performed? no
[2024-08-15 05:45] LABS: African American GFR (CKD) >90 (>60 ml/min/1.73 sqM); Anion Gap 1 mmol/L; Blood Urea Nitrogen 9 mg/dL (7-17); Calcium 7.9 mg/dL (8.4-10.2); Carbon Dioxide 34 mmol/L (22-30); Chloride 103 mmol/L (98-107); Glucose 147 mg/dL (74-99); Non-African American GFR(CKD) >90 (>60 ml/min/1.73 sqM); Potassium 3.6 mmol/L (3.5-5.1); Sodium 138 mmol/L (137-145)
[2024-08-15 06:22] LABS: Glucose,Whole Blood 164 mg/dL (70-110)
--- NOTE | 2024-08-15 06:38 | XR ---
EXAMINATION TYPE: XR chest 1V portable DATE OF EXAM: 08/15/2024 CLINICAL HISTORY: Difficulty breathing progress study. TECHNIQUE: Single AP portable semiupright view of the chest is obtained. COMPARISON: Chest x-ray from one day earlier and older studies. FINDINGS: Stable endotracheal tube. There are persistent bibasilar increased opacities on background chronic parenchymal change and left apical focal pleural/parenchymal thickening. There are persistent left Greater than right bilateral multifocal opacities. Stable cardiomegaly. Deformity of left clavicle redemonstrated. Clip projectin g over the upper trachea again seen. IMPRESSION: There is persistent cardiomegaly with bilateral small pleural effusions with continued ce ntral vascular congestion and bilateral multifocal acute infiltrates and/or edema redemonstrated. [facility], , 08/15/2024 6:36 AM
--- NOTE | 2024-08-15 07:49 | P.PN ---
Subjective History of Present Illness: The patient is a 63-year-old female, status post radical neck dissection for oral cancer and reconstructive surgery, history of PEG tube because of recurrent aspiration who was admitted to the hospital because of progressive dyspnea cough and was noted to have recurrent aspiration pneumonia. Yesterday she had an episode of atrial fibrillation with rapid ventricle response and is transferred to the ICU. She was hypotensive. She is back in sinus mechanism this morning and continues to be on IV Cardizem. She had a prior history of what appears to be DVT probably in her arm and has been anticoagulated. According to the family it is unclear if she had any arterial embolization from atrial fibrillation, she has been followed at [facility] and has been on anticoagulation since. She has no history of myocardial infarction or documented CHF. Her activity level is quite limited. She continues to be dyspneic and has a cough but she denies any chest discomfort, peripheral edema, PND or orthopnea. No evaluation of her systolic function is available to me. Her NT proBNP was elevated. She has no history of PND, orthopnea. According to her she had no recurrent atrial fibrillation since 6 years ago. She has no history of diabetes or hyperlipidemia. Medications: As an outpatient she is on Eliquis 5 mg twice a day, gabapentin, aspirin, Cymbalta 08/11 Patient seen and examined. Patient denies chest pain or pressure. Echocardiogram performed this morning which shows EF 65-70% with hyperdynamic function, no mitral regurgitation, [id number] tricuspid regurgitation. She was on Cardizem drip at 10 however this was decreased to 5 and is currently in sinus rhythm. She was not very symptomatic in terms of feeling her A. fib during the episode. She is tolerating metoprolol 25 twice a day. 08/12 Patient seen and examined. Patient with more respiratory distress. Her heart rate has been increased up in the low 110s consistently and then now more recently up in the 150s to 160s. She remains on Cardizem drip at 15. Lasix 20 mg IV twice a day was started today. 08/13 Patient seen and examined. Patient had increasing respiratory distress with vomiting and aspiration and eventually underwent intubation and bronchoscopy with significant secretions removed. She was being diuresed yesterday however had more hypotension around the time of intubation and therefore has been given IV fluids. She was tachycardic and had been on a Cardizem drip as well as amiodarone drip however with intubation and sedation heart rates have improved. Cardizem was stopped and patient has been on digoxin. Patient does have significant issues with aspiration in the past per family and briefly discussed this would likely have some increased risks evaluated were to consider a TALON cardioversion. At this point however heart rates better controlled mainly in the 90s to 100s. 08/14 Patient seen and examined. Remains in A. fib with heart rates in the 100-120 range. Remains on ventilator with FiO2 50% and PEEP of 8. On norepinephrine at 0.08. Remains on amiodarone drip. 08/15 Patient seen and examined. Patient converted to normal sinus rhythm. We will stop the Cardizem drip. Hold metoprolol she is in normal rhythm. She remains on ventilator with FiO2 40% and a PEEP of 6. She has been receiving IV fluids with a total of 100 mL per hour and is +3 L for each of the last 2 days. Does have some increasing generalized edema. Physical Examination: VS reviewed Head: Status post radical neck dissection and reconstruction of the jaw Eyes: Sclerae nonicteric. Neck: Good carotid upstroke, no bruit, Lungs: Bilateral rhonchi at the bases Heart: Regular rate and rhythm, S1-S2, no S3, no rub. Systolic ejection murmur. Abdomen: Soft nontender, positive bowel sounds no organomegaly, PEG tube in place. Extremities: No edema, intact distal pulses. Impression: 1. Paroxysmal atrial fibrillation probably exacerbated by the lung status. Patient has been anticoagulated and had a remote history of atrial fibrillation. Back in sinus 2. Recurrent aspiration pneumonia 3. Status post PEG tube placement 4. Elevation of NT proBNP with no clear symptoms or findings on examination of heart failure, could be exacerbated by the lung status 5. Status post oral cancer and radical neck dissection and reconstructive surgery 6. Leukocytosis improving 7. History of DVT Plan: Continue with amiodarone however switched to oral amiodarone 400 twice a day. She is +3 L over each of the last 2 days and we will stop her IV fluids. Continue with tube feeds. Much of her edema which is somewhat worsened over the last 2 days more related to sepsis, low protein state with albumin 2.4 however may eventually need Lasix. Stop Cardizem drip and hold metoprolol while she is on vasopressors. Objective - Vital Signs Vital signs: Vital Signs Temp 99 F 08/15/24 04:00 Pulse 86 08/15/24 07:45 Resp 19 08/15/24 07:00 BP 133/73 08/14/24 20:30 Pulse Ox 93 L 08/15/24 07:00 FiO2 40 08/15/24 07:38 Intake & Output 08/14/24 08/15/24 08/15/24 18:59 06:59 18:59 Intake Total 2406.680 2651.430 Output Total 745 490 Balance 4637.025 7749.430 Weight 64.6 kg 68.4 kg Intake: IV 800 1836 A Line 36 Anidulafungin 100 mg In 100 Sodium Chloride 0.9% 100 ml @ 84 mls/hr IVPB DAILY @1700 [facility] Rx#:[id number] Piperacillin-Tazobactam 3 100 100 .375 gm In Sodium Chloride 0.9% 100 ml @ 25 mls/hr IVPB Q8HR [facility] Rx# :[id number] Potassium Chloride 20 meq 100 In Water For Injection 1 100ml.bag @ 50 mls/hr IVPB ONCE ONE Rx#: [id number] Sodium Chloride 0.9% 1, 1200 000 ml @ 100 mls/hr IV . Q10H [facility] Rx#:[id number] Sodium Chloride 0.9% 1, 500 000 ml @ 20 mls/hr IV . Q24H [facility] Rx#:[id number] Vancomycin 1,000 mg In 500 Sodium Chloride 0.9% 250 ml @ 125 mls/hr IVPB Q8H [facility] Rx#:[id number] Intake, IV Titration 1316.680 263.430 Amount Amiodarone 450 mg In 233.894 Dextrose 5% in Water 250 ml @ 0.5 MG/MIN 16.667 mls/hr IV .Q15H [facility] Rx#: [id number] Norepinephrine 8 mg In 140.826 66.370 Sodium Chloride 0.9% 250 ml @ 0.03 MCG/KG/MIN 3. 251 mls/hr IV .Q24H [facility] Rx#:[id number] Potassium Chloride 20 meq 100 In Water For Injection 1 100ml.bag @ 50 mls/hr IVPB ONCE ONE Rx#: [id number] Sodium Chloride 0.9% 1, 700 100 000 ml @ 100 mls/hr IV . Q10H [facility] Rx#:[id number] propofoL 1,000 mg In 141.96 97.06 Empty Bag 1 bag @ 15 MCG/ KG/MIN 5.04 mls/hr IV . [id number] [facility] Rx#:[id number] Tube Feeding 200 462 Other 90 90 Output: Urine 745 490 Other: Voiding Method Indwelling Catheter Indwelling Catheter # Bowel Movements 1 1 ABP, PAP, CO, CI - Last Documented Arterial Blood Pressure 107/51 - Labs CBC & Chem 7: 08/15/24 05:06 08/15/24 05:06 Labs: Abnormal Lab Results - Last 24 Hours (Table) 08/14/24 08/14/24 08/14/24 Range/Units 11:28 17:38 23:34 WBC (3.8-10.6) k/uL RBC (3.80-5.40) m/uL Hgb (11.4-16.0) gm/dL Hct (34.0-46.0) % MCHC (31.0-37.0) g/dL Neutrophils # (1.3-7.7) k/uL Lymphocytes # (1.0-4.8) k/uL ABG pCO2 (35-45) mmHg ABG HCO3 (21-25) mmol/L ABG Total CO2 (19-24) mmol/L ABG O2 Saturation (94-97) % Hemoglobin (11.4-16.0) gm/dL Carbon Dioxide (22-30) mmol/L Creatinine (0.52-1.04) mg/dL Glucose (74-99) mg/dL POC Glucose (mg/dL) 129 H 137 H 147 H (70-110) mg/dL Calcium (8.4-10.2) mg/dL 08/15/24 08/15/24 08/15/24 Range/Units 05:06 05:06 05:41 WBC 12.7 H (3.8-10.6) k/uL RBC 3.17 L (3.80-5.40) m/uL Hgb 9.2 L (11.4-16.0) gm/dL Hct 29.9 L (34.0-46.0) % MCHC 30.7 L (31.0-37.0) g/dL Neutrophils # 10.8 H (1.3-7.7) k/uL Lymphocytes # 0.9 L (1.0-4.8) k/uL ABG pCO2 52 H (35-45) mmHg ABG HCO3 33 H (21-25) mmol/L ABG Total CO2 34 H (19-24) mmol/L ABG O2 Saturation 98.2 H (94-97) % Hemoglobin 9.0 L (11.4-16.0) gm/dL Carbon Dioxide 34 H (22-30) mmol/L Creatinine 0.41 L (0.52-1.04) mg/dL Glucose 147 H (74-99) mg/dL POC Glucose (mg/dL) (70-110) mg/dL Calcium 7.9 L (8.4-10.2) mg/dL 08/15/24 Range/Units 06:21 WBC (3.8-10.6) k/uL RBC (3.80-5.40) m/uL Hgb (11.4-16.0) gm/dL Hct (34.0-46.0) % MCHC (31.0-37.0) g/dL Neutrophils # (1.3-7.7) k/uL Lymphocytes # (1.0-4.8) k/uL ABG pCO2 (35-45) mmHg ABG HCO3 (21-25) mmol/L ABG Total CO2 (19-24) mmol/L ABG O2 Saturation (94-97) % Hemoglobin (11.4-16.0) gm/dL Carbon Dioxide (22-30) mmol/L Creatinine (0.52-1.04) mg/dL Glucose (74-99) mg/dL POC Glucose (mg/dL) 164 H (70-110) mg/dL Calcium (8.4-10.2) mg/dL Microbiology - Last 24 Hours (Table) 08/11/24 12:31 Blood Culture - Preliminary Blood 08/12/24 17:00 Gram Stain - Preliminary Sputum Sputum Culture - Preliminary Presumptive Staph aureus Morganella morganii
[2024-08-15] MEDS: AMIODARONE 200 MG TAB PO SCH (08:11)
[2024-08-15] MEDS: FUROSEMIDE 10 MG/ML 2 ML VIAL IV SCH (10:50)
[2024-08-15 12:15] LABS: Glucose,Whole Blood 142 mg/dL (70-110)
--- NOTE | 2024-08-15 13:14 | P.PN ---
Subjective Progress Note Date: 08/15/24 SURGICAL PROGRESS NOTE CHIEF COMPLAINT: Respiratory failure HISTORY OF PRESENT ILLNESS: Patient remains intubated on mechanical ventilation in the ICU. Patient is tolerating her tube feeds. Tube feeds at 42 mL/h. No residual. They are working on weaning her off of the Levophed. Afebrile. WBC down from 14-12.7 Hgb 9.2 PHYSICAL EXAM: VITAL SIGNS: Reviewed. GENERAL: Intubated and sedated ABDOMEN: Soft. Nondistended. Nontender. Skin irritation noted around J-tube site with small amount of tannish drainage. ASSESSMENT: 1. Clogged jejunostomy tube and nausea status post J-tube exchange at bedside 2. Aspiration pneumonia 3. History of tongue and neck cancer status post chemo and radiation and reconstructive surgery PLAN: -Titrate tube feeds per dietitian -Apply zinc oxide to skin irritation around J-tube Physician Search Manager note has been reviewed by physician. Signing provider agrees with the documented findings, assessment, and plan of care. Objective - Vital Signs Vital signs: Vital Signs Temp 98.9 F 08/15/24 12:00 Pulse 82 08/15/24 12:30 Resp 18 08/15/24 12:30 BP 142/71 08/15/24 11:15 Pulse Ox 95 08/15/24 12:30 FiO2 50 08/15/24 12:00 Intake & Output 08/14/24 08/15/24 08/15/24 18:59 06:59 18:59 Intake Total 2406.680 2651.430 621.539 Output Total 745 490 690 Balance 1404.037 4156.430 -68.461 Weight 64.6 kg 68.4 kg 68.4 kg Intake: IV 800 1836 195 A Line 36 15 Anidulafungin 100 mg In 100 Sodium Chloride 0.9% 100 ml @ 84 mls/hr IVPB DAILY @1700 [facility] Rx#:[id number] Piperacillin-Tazobactam 3 100 100 .375 gm In Sodium Chloride 0.9% 100 ml @ 25 mls/hr IVPB Q8HR [facility] Rx# :[id number] Potassium Chloride 20 meq 100 In Water For Injection 1 100ml.bag @ 50 mls/hr IVPB ONCE ONE Rx#: [id number] Sodium Chloride 0.9% 1, 1200 180 000 ml @ 100 mls/hr IV . Q10H [facility] Rx#:[id number] Sodium Chloride 0.9% 1, 500 000 ml @ 20 mls/hr IV . Q24H [facility] Rx#:[id number] Vancomycin 1,000 mg In 500 Sodium Chloride 0.9% 250 ml @ 125 mls/hr IVPB Q8H [facility] Rx#:[id number] Intake, IV Titration 1316.680 263.430 186.539 Amount Amiodarone 450 mg In 233.894 Dextrose 5% in Water 250 ml @ 0.5 MG/MIN 16.667 mls/hr IV .Q15H [facility] Rx#: [id number] Diltiazem 125 mg In 124.5 Sodium Chloride 0.9% 100 ml @ 5 MG/HR 5 mls/hr IV .Q24H [facility] Rx#:[id number] Norepinephrine 8 mg In 140.826 66.370 8.615 Sodium Chloride 0.9% 250 ml @ 0.03 MCG/KG/MIN 3. 251 mls/hr IV .Q24H [facility] Rx#:[id number] Potassium Chloride 20 meq 100 In Water For Injection 1 100ml.bag @ 50 mls/hr IVPB ONCE ONE Rx#: [id number] Sodium Chloride 0.9% 1, 700 100 000 ml @ 100 mls/hr IV . Q10H [facility] Rx#:[id number] propofoL 1,000 mg In 141.96 97.06 53.424 Empty Bag 1 bag @ 15 MCG/ KG/MIN 5.04 mls/hr IV . [id number] [facility] Rx#:[id number] Tube Feeding 200 462 210 Other 90 90 30 Output: Urine 745 490 690 Other: Voiding Method Indwelling Catheter Indwelling Catheter Indwelling Catheter # Bowel Movements 1 1 ABP, PAP, CO, CI - Last Documented Arterial Blood Pressure 106/49 - Labs CBC & Chem 7: 08/15/24 05:06 08/15/24 05:06 Labs: Abnormal Lab Results - Last 24 Hours (Table) 08/14/24 08/14/24 08/15/24 Range/Units 17:38 23:34 05:06 WBC 12.7 H (3.8-10.6) k/uL RBC 3.17 L (3.80-5.40) m/uL Hgb 9.2 L (11.4-16.0) gm/dL Hct 29.9 L (34.0-46.0) % MCHC 30.7 L (31.0-37.0) g/dL Neutrophils # 10.8 H (1.3-7.7) k/uL Lymphocytes # 0.9 L (1.0-4.8) k/uL ABG pCO2 (35-45) mmHg ABG HCO3 (21-25) mmol/L ABG Total CO2 (19-24) mmol/L ABG O2 Saturation (94-97) % Hemoglobin (11.4-16.0) gm/dL Carbon Dioxide (22-30) mmol/L Creatinine (0.52-1.04) mg/dL Glucose (74-99) mg/dL POC Glucose (mg/dL) 137 H 147 H (70-110) mg/dL Calcium (8.4-10.2) mg/dL 08/15/24 08/15/24 08/15/24 Range/Units 05:06 05:41 06:21 WBC (3.8-10.6) k/uL RBC (3.80-5.40) m/uL Hgb (11.4-16.0) gm/dL Hct (34.0-46.0) % MCHC (31.0-37.0) g/dL Neutrophils # (1.3-7.7) k/uL Lymphocytes # (1.0-4.8) k/uL ABG pCO2 52 H (35-45) mmHg ABG HCO3 33 H (21-25) mmol/L ABG Total CO2 34 H (19-24) mmol/L ABG O2 Saturation 98.2 H (94-97) % Hemoglobin 9.0 L (11.4-16.0) gm/dL Carbon Dioxide 34 H (22-30) mmol/L Creatinine 0.41 L (0.52-1.04) mg/dL Glucose 147 H (74-99) mg/dL POC Glucose (mg/dL) 164 H (70-110) mg/dL Calcium 7.9 L (8.4-10.2) mg/dL 08/15/24 Range/Units 12:11 WBC (3.8-10.6) k/uL RBC (3.80-5.40) m/uL Hgb (11.4-16.0) gm/dL Hct (34.0-46.0) % MCHC (31.0-37.0) g/dL Neutrophils # (1.3-7.7) k/uL Lymphocytes # (1.0-4.8) k/uL ABG pCO2 (35-45) mmHg ABG HCO3 (21-25) mmol/L ABG Total CO2 (19-24) mmol/L ABG O2 Saturation (94-97) % Hemoglobin (11.4-16.0) gm/dL Carbon Dioxide (22-30) mmol/L Creatinine (0.52-1.04) mg/dL Glucose (74-99) mg/dL POC Glucose (mg/dL) 142 H (70-110) mg/dL Calcium (8.4-10.2) mg/dL Microbiology - Last 24 Hours (Table) 08/12/24 17:00 Gram Stain - Final Sputum Sputum Culture - Final Methicillin resist S. aureus Morganella morganii 08/11/24 12:31 Blood Culture - Preliminary Blood Assessment and Plan Assessment: j tube working appropriately continue tube feeds no issues advance tube feeds to goal Time with Patient: Less than 30
--- NOTE | 2024-08-15 14:07 | P.PN ---
Subjective Progress Note Date: 08/15/24 08/11/2023, the patient is being seen for a follow-up. Is a 63-year-old female patient with past medical history of oral cancer and previous radical neck dissection followed by radiation therapy and reconstructive surgery and the patient suffers from chronic dysphagia and the patient has PEG tube. The pat ient also has previous history of DVT/pulmonary embolism maintained on anticoagulation. She has history of atrial fibrillation, hypothyroidism and seizure disorders. For now, the patient is in the intensive care unit for an acute hypoxic respiratory failure. The patient is currently on Airvo at 60 L with an FiO2 of 90% %. Chest x-ray shows bilateral lower lobe consolidation and possibly some small effusions. Antibiotic coverage is with IV Eraxis, vancomycin and Rocephin. Sputum samples collected on 08/06/2024 was consistent with MRSA, Morganella morganii and strep agalactiae. The patient had developed significant leukocytosis which is downtrending and the white cell count from yesterday was down to 16. Patient also developed atrial fibrillation with rapid ventricular response over the past 24 to 48 hours. The patient based on that was started on Cardizem drip and she is already anticoagulated with Eliquis. She remains on Cardizem at 10 mg an hour. She is also on metoprolol 25 mg p.o. twice daily for rate control. The patient is also on oxygen and Airvo settings this morning is 6 L with an FiO2 of 90%. The patient has a J-tube for feeding receiving Jevity 1.5 at the rate of 40 cc an hour. The J-tube was replaced yesterday. This was done by general surgery. CAT scan of the abdomen done on 08/09/2024 showed that the jejunostomy tube was grossly intact. Nevertheless, it there was evidence of lower lobe consolidations bilaterally worse on the left. 08/12/2023, the patient is being seen for a follow-up. Condition is gradually compensated over the past 24 hours and the patient has become more hypoxic related to her pneumonia. Noted the patient was on high flow oxygen, Airvo 60 L with an FiO2 of 90%. Subsequently, she was given 100% nonrebreather facemask and the patient continued to have episodes of desaturation. At a later stage, overnight, the patient was placed on a BiPAP and currently she is on a BiPAP pressure of 15 over 10 cm of water with an FiO2 of 100%. Initially, this morning, she was still desaturating and her blood gas was obtained which showed a pH of 7.33 with a pCO2 of 74 and pO2 of 49. I attended on this patient immediately. I wanted to intubate the patient. However, I do acknowledge that this is going to be an extremely difficult intubation as the patient does not have any ability to open up her mouth due to chronic scarring in her neck muscles and scarring of her jaw and her neck is significantly scarred up and stiff related to previous radiation therapy. While adjusting the BiPAP mask, we improved the leaks and the pulse ox improved currently she is pulse oxing in order of 91 to 93%. Reviewed the chest x-ray from today shows diffuse bilateral airspace disease consistent with pneumonia. No evidence of any pneumothorax. The patient continues to have a congested cough. No significant sputum production. Despite his ongoing hypoxemia, she is breathing comfortably. Her current respiratory rate is in the mid 20s. She is still awake and communicating. No fever. No hemodynamic instability. She remains in atrial fibrillation. Antibiotic coverage remains unchanged and the patient remains on a combination of Rocephin and vancomycin and Eraxis. The fluid balance has been negative over the past 24 hours. The white cell count is at 18.10.8 and this is. Calcium level 6. The patient remains on DuoNeb nebulized treatments. In terms of her ongoing atrial fibrillation, she is on Cardizem drip at 15 mg an hour. She remains on anticoagulation with Eliquis. She is also on metoprololAt a dose of 25 mg p.o. twice a day. No hypotension. Hemodynamically stable. IV fluids are currently at KVO. On 08/13/2024, the patient is being seen for a follow-up. As mentioned, the patient was intubated yesterday and placed on mechanical ventilation due to bilateral pneumonia that was further complicated by an episode of aspiration. This morning, the patient is sedated and the patient is calm and comfortable. She is on assist-control mode of mechanical ventilation. He is on a rate of 16 with a tidal volume of 350 and FiO2 of 50% with a PEEP of 8. The blood gas showed a pH of 7.45 with a pCO2 of 54 and pO2 of 91. Chest x-ray is consistent with diffuse bilateral pulmonary filtrates/pneumonia. Bronchoscopy was also done and another bronchial aspirate was obtained, pending further cultures. She is calm and comfortable on propofol running at 35 mcg/kg/min. Noted post intubation, the patient became hypotensive. Received a liter bolus and currently she is on normal saline at rate of 100 cc an hour. Norepinephrine is running at 0.15 mcg/kg/min. She remains in atrial fibrillation. She is on amiodarone drip at 0.5 mg/min and she is also on Cardizem drip. Slightly tachycardic. Remains on Rocephin and vancomycin and Rocephin will be switched to Zosyn. Lasix will also to be discontinued. Enteral feeding is to be started today. The white cell count of 21 with a hemoglobin 10.3 and a platelet count of 427. Sodium is at 138, BUN 13 creatinine 0.4 and a potassium level is at 3.2 with a bicarb level of 37 On 08/14/2024, the patient is being seen for a follow-up. The patient remains intubated on the mechanical ventilator. Earlier this morning, the patient is on a 30 mcg of propofol and the patient is adequately sedated. She remains on the mechanical ventilator assist-control mode with rate of 16, tidal volume of 350, FiO2 of 50% with a PEEP of 8. Blood gases show a pH of 7.41 with a pCO2 of 51 and pO2 of 82. No significant respiratory secretions. The sputum cultures and the bronchial aspirate this was collected and sent for culture showed presumptive Staph aureus and gram-negative bacillus and the patient remains on broad-spectrum antibiotics and the patient remains on a combination of Zosyn and vancomycin. Chest x-ray findings are essentially unchanged and the patient has diffuse bilateral patchy pulmonary infiltrates consistent with pneumonia. Meanwhile, the patient is on normal saline at rate of 100 cc an hour. Hemodynamically, she still requiring pressors and the patient is on norepinephrine at 0.06 mcg/kg/min. Earlier this morning, the patient was still tachycardic while being in atrial fibrillation. She was started on Cardizem drip at 5 mg an hour by cardiology. She remains on amiodarone 0.5 mg/min. The patient was also given metoprolol 25 mg p.o. twice daily and the patient remains on anticoagulation with Eliquis. She is receiving enteral feeding for nutritional support with vital high-protein at rate of 10 cc an hour. The white cell count is 14.3 with hemoglobin 9.5 and a platelet count of 375. Sodium is at 137, potassium is at 3.6, BUN is 8. The patient with a creatinine of 0.4 On 08/15/2024, the patient is being seen for a follow-up. On today's evaluation, the patient extremity, comfortable on propofol running at 30 mcg/kg/min. Chest x-ray shows stable bilateral pulmonary filtrates, essentially unchanged. The bronchial lavage that was obtained earlier was positive for MRSA and Morganella morganii and the patient remains on a combination of Zosyn and vancomycin. The patient remains on assist-control mode mechanical ventilation. The patient's current setting includes on assist-control mode with rate of 18, tidal volume of 350, FiO2 40% with a PEEP of 6. Blood gas showed a pH of 7.41 with a pCO2 of 52 and pO2 of 107 and there has been some improvement in the oxygenation. Fluid balance is +3.8 L. The patient remains on low-dose dose of norepinephrine running at 0.02 mcg/kg/min. IV fluids are in the form of normal saline at rate of 100 cc an hour and the patient's cardiac rhythm is converted into sinus. The patient is currently on oral amiodarone. The patient is also on vital high- protein at rate of 42 cc an hour and she is tolerating the enteral feeding. The white cell count of 12.7 with a hemoglobin 9.2 and a platelet count of 377. BUN is 9 with a creatinine of 0.4 and sodium levels at 138 with potassium level of 3.6. No other significant events overnight. Objective - Vital Signs Vital signs: Vital Signs Temp 98.2 F 08/15/24 08:00 Pulse 88 08/15/24 08:01 Resp 22 08/15/24 08:00 BP 145/74 08/15/24 08:00 Pulse Ox 95 08/15/24 08:00 FiO2 40 08/15/24 08:00 Intake & Output 08/14/24 08/15/24 08/15/24 18:59 06:59 18:59 Intake Total 2406.680 2651.430 302.425 Output Total 745 490 65 Balance 2264.470 7949.430 237.425 Weight 64.6 kg 68.4 kg Intake: IV 800 1836 103 A Line 36 3 Anidulafungin 100 mg In 100 Sodium Chloride 0.9% 100 ml @ 84 mls/hr IVPB DAILY @1700 [facility] Rx#:[id number] Piperacillin-Tazobactam 3 100 100 .375 gm In Sodium Chloride 0.9% 100 ml @ 25 mls/hr IVPB Q8HR [facility] Rx# :[id number] Potassium Chloride 20 meq 100 In Water For Injection 1 100ml.bag @ 50 mls/hr IVPB ONCE ONE Rx#: [id number] Sodium Chloride 0.9% 1, 1200 100 000 ml @ 100 mls/hr IV . Q10H [facility] Rx#:[id number] Sodium Chloride 0.9% 1, 500 000 ml @ 20 mls/hr IV . Q24H [facility] Rx#:[id number] Vancomycin 1,000 mg In 500 Sodium Chloride 0.9% 250 ml @ 125 mls/hr IVPB Q8H [facility] Rx#:[id number] Intake, IV Titration 1316.680 263.430 127.425 Amount Amiodarone 450 mg In 233.894 Dextrose 5% in Water 250 ml @ 0.5 MG/MIN 16.667 mls/hr IV .Q15H [facility] Rx#: [id number] Diltiazem 125 mg In 124.5 Sodium Chloride 0.9% 100 ml @ 5 MG/HR 5 mls/hr IV .Q24H [facility] Rx#:[id number] Norepinephrine 8 mg In 140.826 66.370 2.925 Sodium Chloride 0.9% 250 ml @ 0.03 MCG/KG/MIN 3. 251 mls/hr IV .Q24H [facility] Rx#:[id number] Potassium Chloride 20 meq 100 In Water For Injection 1 100ml.bag @ 50 mls/hr IVPB ONCE ONE Rx#: [id number] Sodium Chloride 0.9% 1, 700 100 000 ml @ 100 mls/hr IV . Q10H [facility] Rx#:[id number] propofoL 1,000 mg In 141.96 97.06 Empty Bag 1 bag @ 15 MCG/ KG/MIN 5.04 mls/hr IV . [id number] [facility] Rx#:[id number] Tube Feeding 200 462 42 Other 90 90 30 Output: Urine 745 490 65 Other: Voiding Method Indwelling Catheter Indwelling Catheter Indwelling Catheter # Bowel Movements 1 1 ABP, PAP, CO, CI - Last Documented Arterial Blood Pressure 115/53 - Exam GENERAL EXAM: Alert, 63-year-old female, sedated on propofol,, comfortable, orotracheal tube is in good position. HEAD: Normocephalic and atraumatic EYES: Normal reaction of pupils, equal size. NOSE: Clear with pink turbinates. THROAT: No erythema or exudates. Edentulous, with previous reconstructive surgery. Unable to open her mouth as the patient has jaw dysfunction and scarring in her neck muscles. NECK: No masses, no JVD. Significant neck deformity related to radiation- induced scarring and previous neck surgery. CHEST: No chest wall deformity. LUNGS: Equal air entry with bilateral rhonchi and wheezing with left lower lobe inspiratory crackles. CVS: S1 and S2 normal with no audible murmur, irregular rhythm. No extra heart sounds ABDOMEN: No hepatosplenomegaly, active bowel sounds, no guarding or rigidity. There are two percutaneous feeding tubes. SPINE: No scoliosis or deformity SKIN: No rashes CENTRAL NERVOUS SYSTEM: Sedated, calm and comfortable EXTREMITIES: There is no peripheral edema, clubbing, or cyanosis. Peripheral pulses are intact. - Labs CBC & Chem 7: 08/15/24 05:06 08/15/24 05:06 Labs: Abnormal Lab Results - Last 24 Hours (Table) 08/14/24 08/14/24 08/14/24 Range/Units 11:28 17:38 23:34 WBC (3.8-10.6) k/uL RBC (3.80-5.40) m/uL Hgb (11.4-16.0) gm/dL Hct (34.0-46.0) % MCHC (31.0-37.0) g/dL Neutrophils # (1.3-7.7) k/uL Lymphocytes # (1.0-4.8) k/uL ABG pCO2 (35-45) mmHg ABG HCO3 (21-25) mmol/L ABG Total CO2 (19-24) mmol/L ABG O2 Saturation (94-97) % Hemoglobin (11.4-16.0) gm/dL Carbon Dioxide (22-30) mmol/L Creatinine (0.52-1.04) mg/dL Glucose (74-99) mg/dL POC Glucose (mg/dL) 129 H 137 H 147 H (70-110) mg/dL Calcium (8.4-10.2) mg/dL 08/15/24 08/15/24 08/15/24 Range/Units 05:06 05:06 05:41 WBC 12.7 H (3.8-10.6) k/uL RBC 3.17 L (3.80-5.40) m/uL Hgb 9.2 L (11.4-16.0) gm/dL Hct 29.9 L (34.0-46.0) % MCHC 30.7 L (31.0-37.0) g/dL Neutrophils # 10.8 H (1.3-7.7) k/uL Lymphocytes # 0.9 L (1.0-4.8) k/uL ABG pCO2 52 H (35-45) mmHg ABG HCO3 33 H (21-25) mmol/L ABG Total CO2 34 H (19-24) mmol/L ABG O2 Saturation 98.2 H (94-97) % Hemoglobin 9.0 L (11.4-16.0) gm/dL Carbon Dioxide 34 H (22-30) mmol/L Creatinine 0.41 L (0.52-1.04) mg/dL Glucose 147 H (74-99) mg/dL POC Glucose (mg/dL) (70-110) mg/dL Calcium 7.9 L (8.4-10.2) mg/dL 08/15/24 Range/Units 06:21 WBC (3.8-10.6) k/uL RBC (3.80-5.40) m/uL Hgb (11.4-16.0) gm/dL Hct (34.0-46.0) % MCHC (31.0-37.0) g/dL Neutrophils # (1.3-7.7) k/uL Lymphocytes # (1.0-4.8) k/uL ABG pCO2 (35-45) mmHg ABG HCO3 (21-25) mmol/L ABG Total CO2 (19-24) mmol/L ABG O2 Saturation (94-97) % Hemoglobin (11.4-16.0) gm/dL Carbon Dioxide (22-30) mmol/L Creatinine (0.52-1.04) mg/dL Glucose (74-99) mg/dL POC Glucose (mg/dL) 164 H (70-110) mg/dL Calcium (8.4-10.2) mg/dL Microbiology - Last 24 Hours (Table) 08/11/24 12:31 Blood Culture - Preliminary Blood 08/12/24 17:00 Gram Stain - Preliminary Sputum Sputum Culture - Preliminary Presumptive Staph aureus Morganella morganii Assessment and Plan Plan: Acute hypoxic respiratory failure secondary to bilateral pneumonia with subsequent aspiration. The patient is currently intubated on mechanical ventilator. The patient was intubated on 08/12/2024. Remains on broad-spectrum antibiotics and the patient remains on a combination of Zosyn and vancomycin. Bilateral lower lobe pneumonia, bacterial, likely related to aspiration, sputum sample obtained 08/01 and again on August 06, 2024 positive for MRSA, Morganella, and group B strep and Rosa. Failed outpatient treatment. The patient's pneumonia is polymicrobial. Noted the patient failed Airvo and BiPAP treatment for respiratory support and the patient had to be intubated on 08/12/2024. She did encounter another bout of aspiration in the intensive care unit. Repeat bronchoscopy endobronchial aspirate was obtained for culturing purposes. The bronchial aspirate and lavage is growing Staph aureus and Morganella morganii. Chest x-ray findings are showing stable bilateral pulmonary filtrates and possibly development of a small left-sided pleural effusion Sepsis with secondary hypotension, currently on norepinephrine infusion, low- dose at 0.02 mcg/kg/min and the patient remains on normal citrate of 100 cc an hour. Positive fluid balance Acute leukocytosis, secondary to above, improving Atrial fibrillation with a rapid ventricular response, converted into normal sinus rhythm. The patient is currently off Cardizem drip. The patient will be switched to oral amiodarone and the patient is also on anticoagulation with Eliquis. History of recurrent aspiration pneumonia and MRSA pneumonia. 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 Nothing by mouth, the patient receiving enteral feeding for nutritional support via PEG tube. History of radiation pneumonitis Xerostomia History of DVT/PE, anticoagulated on Eliquis History of hypothyroidism History of seizure disorder Plan: Continue vent support, changed the PEEP down to 5 Keep the patient sedated on propofol IV fluids to KVO Start the patient on Lasix 20 mg IV every 12 hours Continue Zosyn and vancomycin Cultures from the bronchial lavage was noted and is positive for Morganella and MRSA Continue amiodarone and switch to 40 mg p.o. twice daily Metoprolol 25 mg p.o. twice a day Wean off norepinephrine and discontinue Monitor the heart rate Anticoagulated with Eliquis Continue Eraxis per ID Continue bronchodilators Restart Jevity tube feedings, the G-tube has been replaced. Will advance diet as tolerated currently on vital high-protein and this will be advanced as tolera martha Will continue to follow Condition is obviously critical. Will continue to follow make further r ecommendations based on progress. Evaluation was done more than 30 minutes. Time with Patient: Greater than 30
--- NOTE | 2024-08-15 14:44 | P.PN ---
Subjective Progress Note Date: 08/15/24 This is a pleasant 63 years old female with past medical history of multiple medical problems. Patient called her PCP office of Dr. Anderson and talked to his nurse practitioner Lynnette from she sees in the office complaining from little shortness of breath for the last 4 to 5 days with some cough and phlegm Associated with left lateral chest pain about 7/10 that is worse with coughing and deep breath. 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 Will BMP and LFTs were unremarkable as well as INR proBNP is 248 Chest x-ray showing left lower lobe infiltrate suspicious for pneumonia Patient was started on IV vancomycin and Zosyn and normal saline with pulmonary and ID team consult 08/07/2023 Patient sitting up in bed looks similar to yesterday, complaining from some pain in her left side of the chest but it looks controlled and patient is not in distress No significant dyspnea or tachypnea, she can go to the bathroom by herself with no exertional dyspnea However her oxygen requirement increased from 4 L up to 10 L today. Blood pressure is borderline and patient says usually her blood pressure on the low side Repeat chest x-ray showing similar left lower lobe infiltrate. Her legs are swollen we will going to check ultrasound of the leg given risk factors although she does not have much symptoms Patient remains on IV fluids normal saline at 130 and IV antibiotics with IV vancomycin and ceftriaxone Patient already on Cymbalta, she is asking to start her BuSpar but she is not sure about the dose, is going to be resumed [employer] consult is on for tube feeding 08/08 Patient is mildly tachypneic, not using accessory muscles of breathing, her oxygen requirement increased since yesterday to 10 to 11 L/min She has bilateral leg swelling, mild ultrasound of the leg is negative for DVT. Further workup including sputum culture and blood culture are pending. Blood pressure improved Remains on IV vancomycin and ceftriaxone IV fluid was lower dose 130 down to 75 mL/h Pro- Calcitonin is negative 08/09. Patient seen and examined. Currently on 11 L of oxygen. Patient had her jejunostomy tube not functioning, surgery consulted, they order CT abdominal p jasmina 08/10. Patient seen and examined. Patient went into A-fib with RVR overnight, had worsening respiratory status. Patient had rapid sponsor called and was transferred to ICU. Patient currently on Airvo. Gets short of breath on exertion 08/11 Patient respiratory status got worse and she was moved to the ICU. Currently she is awake alert but requires 60 L/min with 90% of FiO2 Abdomen soft, PEG tube is in place No headache or dizziness WBC is trending down to 16,000, hemoglobin down to two 9.7 Pro- Calcitonin increased to 1.6 and 1 extra dose of MiraLAX is added to her antibiotic Ejection fraction is 65 to 70% CT of the abdomen pelvis showing nonobstructive lesion Patient currently covered with IV vancomycin and ceftriaxone and Eraxis, also patient developed A-fib with RVR and followed by rv technician, started on Eliquis at metoprolol also patient continued on aspirin 08/12 Patient currently remains in the ICU, her breathing function gets worse overnight, yesterday she had to be placed on nonrebreather, and Worsened currently and she was placed on BiPAP in the morning with a setting of 15/10 and FiO2 of 100% Patient herself is awake and alert, she says that her breathing is hard but similar to yesterday. She is saturating about 92% on this current BiPAP setting. She denies chest pain She still mildly tachycardic with heart rate 126 with A-fib and RVR, currently she has been followed by rv technician and getting Cardizem drip at 15 mg/h. Discussed the case with pulmonary service regarding her worsening send respiratory symptoms. Patient may require intubation patient is agreeable however because of her mild surgery will be very difficult situation. Therefore they will try to give her some more time before needed intervention. Repeat chest x-ray from this morning showing worsening pneumonia Yesterday pro- Calcitonin was worsened and her antibiotics were updated per ID team, currently on IV vancomycin, ceftriaxone and Eraxis. Also she is continued on Eliquis for new diagnosis of A-fib. Also she is on aspirin 81 mg, oral 08/13 Yesterday night patient still complaining from respiratory distress had to be intubated and currently she is on mechanical ventilation. Her blood pressure is stable and she is afebrile. Labs showing worsening leukocytosis to 21,000, hemoglobin slightly less than 10.3 Patient remains on broad-spectrum antibiotics with IV vancomycin,Ceftriaxone and Eraxis She is also on amiodarone drip, Eliquis 5 mg twice daily and aspirin 81 mg. 08/14 Patient remains in the ICU intubated and sedated. Her FiO2 today was 50% She is afebrile and rest of vitals look stable Leukocytosis is also improving down to 14,000, hemoglobin stable at 9.5. Patient currently covered with Eliquis and metoprolol and digoxin x 1 per Cardi ologist She remains on IV vancomycin, Zosyn and Eraxis Abdominal wound is closed with no drains Rios catheter in place 08/15. Patient seen and examined. Currently intubated. Family at the bedside, questions answered REVIEW OF SYSTEMS: Review of system cannot be obtained as patient is intubated PHYSICAL EXAMINATION: GENERAL: The patient is intubated HEENT: Pupils are round and equally reacting to light. EOMI. No scleral icterus. No conjunctival pallor. Normocephalic, atraumatic. No pharyngeal erythema. No thyromegaly. CARDIOVASCULAR: S1 and S2 present. No murmurs, rubs, or gallops. PULMONARY coarse breath sounds bilaterally, bilateral rhonchi audible ABDOMEN: Soft, nontender, nondistended, normoactive bowel sounds. No palpable organomegaly. Jejunostomy tube seen MUSCULOSKELETAL: No joint swelling or deformity. EXTREMITIES: No cyanosis, clubbing, 1+ pitting edema of lower extremities bilaterally NEUROLOGICAL: Intubated SKIN: No rashes. Assessment and plan Bilateral pneumonia putum sample obtained 08/01 and again on August 06, 2024 positive for MRSA, Morganella, and group B strep and Rosa Sepsis secondary to above Acute hypoxic respiratory failure secondary to above Mild calorie protein malnutrition History of mouth cancer , currently she uses PEG tube for nutrition COPD, not in acute acute issue History of pneumonia not on anticoagulation History of seizure Monitor vital signs Monitor CBC Monitor CMP Continue telemetry monitoring Aggressive bronchopulmonary hygiene Continue vent management Follow-up on blood cultures Continue breathing treatment Continue Cardizem drip, Eliquis Strict I's and O's, daily weights, Lasix 20 mL twice a day Continue vancomycin, cefepime, Eraxis Continue breathing treatments ID following Pulmonology following Labs and medication were reviewed.. Continue same treatment. Continue with symptomatic treatment. Resume home medication. Monitor labs and vitals. DVT and GI prophylaxis. Further recommendations as per clinical course of the patient Dictation was produced using [employer] dictation software. please excuse any grammatical, word or spelling errors. Objective - Vital Signs Vital signs: Vital Signs Temp 98.9 F 08/15/24 12:00 Pulse 82 08/15/24 12:30 Resp 18 08/15/24 12:30 BP 142/71 08/15/24 11:15 Pulse Ox 95 08/15/24 12:30 FiO2 50 08/15/24 12:00 Intake & Output 08/14/24 08/15/24 08/15/24 18:59 06:59 18:59 Intake Total 2406.680 2651.430 621.539 Output Total 745 490 690 Balance 6853.337 3494.430 -68.461 Weight 64.6 kg 68.4 kg 68.4 kg Intake: IV 800 1836 195 A Line 36 15 Anidulafungin 100 mg In 100 Sodium Chloride 0.9% 100 ml @ 84 mls/hr IVPB DAILY @1700 [facility] Rx#:[id number] Piperacillin-Tazobactam 3 100 100 .375 gm In Sodium Chloride 0.9% 100 ml @ 25 mls/hr IVPB Q8HR [facility] Rx# :[id number] Potassium Chloride 20 meq 100 In Water For Injection 1 100ml.bag @ 50 mls/hr IVPB ONCE ONE Rx#: [id number] Sodium Chloride 0.9% 1, 1200 180 000 ml @ 100 mls/hr IV . Q10H [facility] Rx#:[id number] Sodium Chloride 0.9% 1, 500 000 ml @ 20 mls/hr IV . Q24H [facility] Rx#:[id number] Vancomycin 1,000 mg In 500 Sodium Chloride 0.9% 250 ml @ 125 mls/hr IVPB Q8H [facility] Rx#:[id number] Intake, IV Titration 1316.680 263.430 186.539 Amount Amiodarone 450 mg In 233.894 Dextrose 5% in Water 250 ml @ 0.5 MG/MIN 16.667 mls/hr IV .Q15H [facility] Rx#: [id number] Diltiazem 125 mg In 124.5 Sodium Chloride 0.9% 100 ml @ 5 MG/HR 5 mls/hr IV .Q24H [facility] Rx#:[id number] Norepinephrine 8 mg In 140.826 66.370 8.615 Sodium Chloride 0.9% 250 ml @ 0.03 MCG/KG/MIN 3. 251 mls/hr IV .Q24H [facility] Rx#:[id number] Potassium Chloride 20 meq 100 In Water For Injection 1 100ml.bag @ 50 mls/hr IVPB ONCE ONE Rx#: [id number] Sodium Chloride 0.9% 1, 700 100 000 ml @ 100 mls/hr IV . Q10H [facility] Rx#:[id number] propofoL 1,000 mg In 141.96 97.06 53.424 Empty Bag 1 bag @ 15 MCG/ KG/MIN 5.04 mls/hr IV . [id number] [facility] Rx#:[id number] Tube Feeding 200 462 210 Other 90 90 30 Output: Urine 745 490 690 Other: Voiding Method Indwelling Catheter Indwelling Catheter Indwelling Catheter # Bowel Movements 1 1 ABP, PAP, CO, CI - Last Documented Arterial Blood Pressure 106/49 - Labs CBC & Chem 7: 08/15/24 05:06 08/15/24 05:06 Labs: Abnormal Lab Results - Last 24 Hours (Table) 08/14/24 08/14/24 08/15/24 Range/Units 17:38 23:34 05:06 WBC 12.7 H (3.8-10.6) k/uL RBC 3.17 L (3.80-5.40) m/uL Hgb 9.2 L (11.4-16.0) gm/dL Hct 29.9 L (34.0-46.0) % MCHC 30.7 L (31.0-37.0) g/dL Neutrophils # 10.8 H (1.3-7.7) k/uL Lymphocytes # 0.9 L (1.0-4.8) k/uL ABG pCO2 (35-45) mmHg ABG HCO3 (21-25) mmol/L ABG Total CO2 (19-24) mmol/L ABG O2 Saturation (94-97) % Hemoglobin (11.4-16.0) gm/dL Carbon Dioxide (22-30) mmol/L Creatinine (0.52-1.04) mg/dL Glucose (74-99) mg/dL POC Glucose (mg/dL) 137 H 147 H (70-110) mg/dL Calcium (8.4-10.2) mg/dL 08/15/24 08/15/24 08/15/24 Range/Units 05:06 05:41 06:21 WBC (3.8-10.6) k/uL RBC (3.80-5.40) m/uL Hgb (11.4-16.0) gm/dL Hct (34.0-46.0) % MCHC (31.0-37.0) g/dL Neutrophils # (1.3-7.7) k/uL Lymphocytes # (1.0-4.8) k/uL ABG pCO2 52 H (35-45) mmHg ABG HCO3 33 H (21-25) mmol/L ABG Total CO2 34 H (19-24) mmol/L ABG O2 Saturation 98.2 H (94-97) % Hemoglobin 9.0 L (11.4-16.0) gm/dL Carbon Dioxide 34 H (22-30) mmol/L Creatinine 0.41 L (0.52-1.04) mg/dL Glucose 147 H (74-99) mg/dL POC Glucose (mg/dL) 164 H (70-110) mg/dL Calcium 7.9 L (8.4-10.2) mg/dL 08/15/24 Range/Units 12:11 WBC (3.8-10.6) k/uL RBC (3.80-5.40) m/uL Hgb (11.4-16.0) gm/dL Hct (34.0-46.0) % MCHC (31.0-37.0) g/dL Neutrophils # (1.3-7.7) k/uL Lymphocytes # (1.0-4.8) k/uL ABG pCO2 (35-45) mmHg ABG HCO3 (21-25) mmol/L ABG Total CO2 (19-24) mmol/L ABG O2 Saturation (94-97) % Hemoglobin (11.4-16.0) gm/dL Carbon Dioxide (22-30) mmol/L Creatinine (0.52-1.04) mg/dL Glucose (74-99) mg/dL POC Glucose (mg/dL) 142 H (70-110) mg/dL Calcium (8.4-10.2) mg/dL Microbiology - Last 24 Hours (Table) 08/12/24 17:00 Gram Stain - Final Sputum Sputum Culture - Final Methicillin resist S. aureus Morganella morganii 08/11/24 12:31 Blood Culture - Preliminary Blood
[2024-08-15] MEDS: CEFEPIME 2 GM in SODIUM CHLORIDE 0.9% 100 ML IVPB SCH (16:19)
[2024-08-15 19:17] LABS: Glucose,Whole Blood 137 mg/dL (70-110)
[2024-08-16 00:55] LABS: Glucose,Whole Blood 126 mg/dL (70-110)
[2024-08-16] MEDS: DILTIAZEM 125 MG in SODIUM CHLORIDE 0.9% 100 ML IV SCH (00:55)
[2024-08-16] MEDS: DILTIAZEM DRIP BOLUS FROM BAG 1 MG SOLN IV ONE (00:56)
[2024-08-16] MEDS: AMIODARONE 360 MG in DEXTROSE 5% IN WATER 200 ML IV ONE (00:56)
[2024-08-16 05:14] LABS: HGB 9.2 gm/dL (11.4-16.0); Hypochromasia Moderate; MCH 29.2 pg (25.0-35.0); MCHC 31.6 g/dL (31.0-37.0); MCV 92.2 fL (80.0-100.0); Mean Platelet Volume 9.1; Platelet Count 384 k/uL (150-450); RBC 3.15 m/uL (3.80-5.40); RDW 15.2 % (11.5-15.5); WBC 10.7 k/uL (3.8-10.6)
[2024-08-16] MEDS: AMIODARONE 450 MG in DEXTROSE 5% IN WATER 250 ML IV SCH (05:45)
[2024-08-16 05:46] LABS: ALT 12 U/L (4-34); AST 22 U/L (14-36); African American GFR (CKD) >90 (>60 ml/min/1.73 sqM); Albumin 1.9 g/dL (3.5-5.0); Alkaline Phosphatase 158 U/L (38-126); Anion Gap 3 mmol/L; Blood Urea Nitrogen 9 mg/dL (7-17); Carbon Dioxide 37 mmol/L (22-30); Chloride 96 mmol/L (98-107); Glucose 143 mg/dL (74-99); Non-African American GFR(CKD) >90 (>60 ml/min/1.73 sqM); Potassium 3.3 mmol/L (3.5-5.1); Sodium 136 mmol/L (137-145); Total Bilirubin 0.2 mg/dL (0.2-1.3); Total Protein 4.5 g/dL (6.3-8.2)
[2024-08-16 05:48] LABS: ABG Base Excess 12.3 mmol/L; ABG HCO3 38 mmol/L (21-25); ABG Oxygen Saturation 94.6 % (94-97); ABG PCO2 53 mmHg (35-45); ABG PH 7.46 (7.35-7.45); ABG PO2 71 mmHg (83-108); ABG TCO2 39 mmol/L (19-24)
[2024-08-16 05:49] LABS: Allen Test Performed? no
[2024-08-16] MEDS: POTASSIUM BICARBONATE/CIT AC 20 MEQ TABLET.EFF NG-TUBE SCH (06:33)
[2024-08-16] MEDS: FUROSEMIDE 10 MG/ML 4 ML VIAL IV SCH (08:22)
[2024-08-16] MEDS: metOLazone 5 MG TAB PO ONE (08:24)
--- NOTE | 2024-08-16 08:51 | XR ---
EXAMINATION TYPE: XR chest 1V portable DATE OF EXAM: 08/16/2024 5:37 AM COMPARISON: 08/15/2024 CLINICAL INDICATION: Female, 64 years old with history of infiltrates, TECHNIQUE: XR chest 1V portable view(s) obtained. FINDINGS: The heart size is enlarged. The pulmonary vasculature is normal. Diffuse patchy infiltrates are present bilaterally. There is some silhouetting left diaphragm. Small left pleural effusion is present. Minimal right pleural effusion may be present. Endotracheal tube tip is 1.7 cm above the myranda. IMPRESSION: 1. Patchy diffuse infiltrate bilaterally. Findings may be worsening. 2. Cardiomegaly. 3. Small left pleural effusion. Minimal right pleural effusion may be present. [facility], , 08/16/2024 8:49 AM
[2024-08-16] MEDS ORDERED: FUROSEMIDE 10 MG/ML 4 ML VIAL IV SCH (09:00)
[2024-08-16] MEDS: POTASSIUM CHLORIDE 20 MEQ in WATER FOR INJECTION 1 100ML.BAG IVPB ONE (11:01)
--- NOTE | 2024-08-16 11:28 | P.PN ---
Subjective Progress Note Date: 08/16/24 08/11/2023, the patient is being seen for a follow-up. Is a 63-year-old female patient with past medical history of oral cancer and previous radical neck dissection followed by radiation therapy and reconstructive surgery and the patient suffers from chronic dysphagia and the patient has PEG tube. The pat ient also has previous history of DVT/pulmonary embolism maintained on anticoagulation. She has history of atrial fibrillation, hypothyroidism and seizure disorders. For now, the patient is in the intensive care unit for an acute hypoxic respiratory failure. The patient is currently on Airvo at 60 L with an FiO2 of 90% %. Chest x-ray shows bilateral lower lobe consolidation and possibly some small effusions. Antibiotic coverage is with IV Eraxis, vancomycin and Rocephin. Sputum samples collected on 08/06/2024 was consistent with MRSA, Morganella morganii and strep agalactiae. The patient had developed significant leukocytosis which is downtrending and the white cell count from yesterday was down to 16. Patient also developed atrial fibrillation with rapid ventricular response over the past 24 to 48 hours. The patient based on that was started on Cardizem drip and she is already anticoagulated with Eliquis. She remains on Cardizem at 10 mg an hour. She is also on metoprolol 25 mg p.o. twice daily for rate control. The patient is also on oxygen and Airvo settings this morning is 6 L with an FiO2 of 90%. The patient has a J-tube for feeding receiving Jevity 1.5 at the rate of 40 cc an hour. The J-tube was replaced yesterday. This was done by general surgery. CAT scan of the abdomen done on 08/09/2024 showed that the jejunostomy tube was grossly intact. Nevertheless, it there was evidence of lower lobe consolidations bilaterally worse on the left. 08/12/2023, the patient is being seen for a follow-up. Condition is gradually compensated over the past 24 hours and the patient has become more hypoxic related to her pneumonia. Noted the patient was on high flow oxygen, Airvo 60 L with an FiO2 of 90%. Subsequently, she was given 100% nonrebreather facemask and the patient continued to have episodes of desaturation. At a later stage, overnight, the patient was placed on a BiPAP and currently she is on a BiPAP pressure of 15 over 10 cm of water with an FiO2 of 100%. Initially, this morning, she was still desaturating and her blood gas was obtained which showed a pH of 7.33 with a pCO2 of 74 and pO2 of 49. I attended on this patient immediately. I wanted to intubate the patient. However, I do acknowledge that this is going to be an extremely difficult intubation as the patient does not have any ability to open up her mouth due to chronic scarring in her neck muscles and scarring of her jaw and her neck is significantly scarred up and stiff related to previous radiation therapy. While adjusting the BiPAP mask, we improved the leaks and the pulse ox improved currently she is pulse oxing in order of 91 to 93%. Reviewed the chest x-ray from today shows diffuse bilateral airspace disease consistent with pneumonia. No evidence of any pneumothorax. The patient continues to have a congested cough. No significant sputum production. Despite his ongoing hypoxemia, she is breathing comfortably. Her current respiratory rate is in the mid 20s. She is still awake and communicating. No fever. No hemodynamic instability. She remains in atrial fibrillation. Antibiotic coverage remains unchanged and the patient remains on a combination of Rocephin and vancomycin and Eraxis. The fluid balance has been negative over the past 24 hours. The white cell count is at 18.10.8 and this is. Calcium level 6. The patient remains on DuoNeb nebulized treatments. In terms of her ongoing atrial fibrillation, she is on Cardizem drip at 15 mg an hour. She remains on anticoagulation with Eliquis. She is also on metoprololAt a dose of 25 mg p.o. twice a day. No hypotension. Hemodynamically stable. IV fluids are currently at KVO. On 08/13/2024, the patient is being seen for a follow-up. As mentioned, the patient was intubated yesterday and placed on mechanical ventilation due to bilateral pneumonia that was further complicated by an episode of aspiration. This morning, the patient is sedated and the patient is calm and comfortable. She is on assist-control mode of mechanical ventilation. He is on a rate of 16 with a tidal volume of 350 and FiO2 of 50% with a PEEP of 8. The blood gas showed a pH of 7.45 with a pCO2 of 54 and pO2 of 91. Chest x-ray is consistent with diffuse bilateral pulmonary filtrates/pneumonia. Bronchoscopy was also done and another bronchial aspirate was obtained, pending further cultures. She is calm and comfortable on propofol running at 35 mcg/kg/min. Noted post intubation, the patient became hypotensive. Received a liter bolus and currently she is on normal saline at rate of 100 cc an hour. Norepinephrine is running at 0.15 mcg/kg/min. She remains in atrial fibrillation. She is on amiodarone drip at 0.5 mg/min and she is also on Cardizem drip. Slightly tachycardic. Remains on Rocephin and vancomycin and Rocephin will be switched to Zosyn. Lasix will also to be discontinued. Enteral feeding is to be started today. The white cell count of 21 with a hemoglobin 10.3 and a platelet count of 427. Sodium is at 138, BUN 13 creatinine 0.4 and a potassium level is at 3.2 with a bicarb level of 37 On 08/14/2024, the patient is being seen for a follow-up. The patient remains intubated on the mechanical ventilator. Earlier this morning, the patient is on a 30 mcg of propofol and the patient is adequately sedated. She remains on the mechanical ventilator assist-control mode with rate of 16, tidal volume of 350, FiO2 of 50% with a PEEP of 8. Blood gases show a pH of 7.41 with a pCO2 of 51 and pO2 of 82. No significant respiratory secretions. The sputum cultures and the bronchial aspirate this was collected and sent for culture showed presumptive Staph aureus and gram-negative bacillus and the patient remains on broad-spectrum antibiotics and the patient remains on a combination of Zosyn and vancomycin. Chest x-ray findings are essentially unchanged and the patient has diffuse bilateral patchy pulmonary infiltrates consistent with pneumonia. Meanwhile, the patient is on normal saline at rate of 100 cc an hour. Hemodynamically, she still requiring pressors and the patient is on norepinephrine at 0.06 mcg/kg/min. Earlier this morning, the patient was still tachycardic while being in atrial fibrillation. She was started on Cardizem drip at 5 mg an hour by cardiology. She remains on amiodarone 0.5 mg/min. The patient was also given metoprolol 25 mg p.o. twice daily and the patient remains on anticoagulation with Eliquis. She is receiving enteral feeding for nutritional support with vital high-protein at rate of 10 cc an hour. The white cell count is 14.3 with hemoglobin 9.5 and a platelet count of 375. Sodium is at 137, potassium is at 3.6, BUN is 8. The patient with a creatinine of 0.4 On 08/15/2024, the patient is being seen for a follow-up. On today's evaluation, the patient extremity, comfortable on propofol running at 30 mcg/kg/min. Chest x-ray shows stable bilateral pulmonary filtrates, essentially unchanged. The bronchial lavage that was obtained earlier was positive for MRSA and Morganella morganii and the patient remains on a combination of Zosyn and vancomycin. The patient remains on assist-control mode mechanical ventilation. The patient's current setting includes on assist-control mode with rate of 18, tidal volume of 350, FiO2 40% with a PEEP of 6. Blood gas showed a pH of 7.41 with a pCO2 of 52 and pO2 of 107 and there has been some improvement in the oxygenation. Fluid balance is +3.8 L. The patient remains on low-dose dose of norepinephrine running at 0.02 mcg/kg/min. IV fluids are in the form of normal saline at rate of 100 cc an hour and the patient's cardiac rhythm is converted into sinus. The patient is currently on oral amiodarone. The patient is also on vital high- protein at rate of 42 cc an hour and she is tolerating the enteral feeding. The white cell count of 12.7 with a hemoglobin 9.2 and a platelet count of 377. BUN is 9 with a creatinine of 0.4 and sodium levels at 138 with potassium level of 3.6. No other significant events overnight. On 08/16/2024, the patient is being seen for a follow-up. Remains sedated on propofol running at 30 mcg/kg/min. Chest x-ray still showing extensive bilateral consolidation and the previous bronchoalveolar lavage was consistent with Morganella morganii and MRSA. Remains on Zosyn and vancomycin. Remains on assist-control mode of mechanical ventilation at rate of 16, tidal volume of 350, FiO2 of 60% with a PEEP of 5. The blood gases from today shows a pH of 7.46 with a pCO2 of 53 and pO2 of 71. Fluid balance is positive around 3.8 L o jhonatan the past 24 hours. IV fluids are currently at KVO. She remains on low-dose norepinephrine running at 0.08 mcg/kg/min. Overnight, the patient developed again atrial fibrillation with RVR. She was started on Cardizem drip at 5 mg an hour she is also back on IV amiodarone 0.5 mg/min. Vital high-protein for enteral feeding at rate of 42 cc an hour. The white cell count of 10.7 with a hemoglobin 9.2. Sodium is at 136, BUN is at 9 with a creatinine of 0.3 and a potassium level is at 3.3, needs to be replaced. No other significant events overnight. Objective - Vital Signs Vital signs: Vital Signs Temp 100.1 F H 08/16/24 04:00 Pulse 108 H 08/16/24 07:00 Resp 17 08/16/24 07:00 BP 142/71 08/15/24 11:15 Pulse Ox 93 L 08/16/24 07:00 FiO2 60 08/16/24 04:00 Intake & Output 08/15/24 08/16/24 08/16/24 18:59 06:59 18:59 Intake Total 4983.970 3125.519 Output Total 1939 2014 Balance -858.708 -848.481 Weight 68.4 kg 66.2 kg Intake: IV 333 299 0.9 NS 138 A Line 33 141 Sodium Chloride 0.9% 1, 300 20 000 ml @ 100 mls/hr IV . Q10H [facility] Rx#:[id number] Intake, IV Titration 196.292 147.519 Amount Diltiazem 125 mg In 124.5 Sodium Chloride 0.9% 100 ml @ 5 MG/HR 5 mls/hr IV .Q24H [facility] Rx#:[id number] Norepinephrine 8 mg In 18.368 56.255 Sodium Chloride 0.9% 250 ml @ 0.03 MCG/KG/MIN 3. 251 mls/hr IV .Q24H [facility] Rx#:[id number] propofoL 1,000 mg In 53.424 91.264 Empty Bag 1 bag @ 15 MCG/ KG/MIN 5.04 mls/hr IV . [id number] [facility] Rx#:[id number] Tube Feeding 462 630 Other 90 90 Output: Urine 1939 2014 Other: Voiding Method Indwelling Catheter Indwelling Catheter ABP, PAP, CO, CI - Last Documented Arterial Blood Pressure 110/58 - Exam GENERAL EXAM: Alert, 63-year-old female, sedated on propofol,, comfortable, orotracheal tube is in good position. HEAD: Normocephalic and atraumatic EYES: Normal reaction of pupils, equal size. NOSE: Clear with pink turbinates. THROAT: No erythema or exudates. Edentulous, with previous reconstructive surgery. Unable to open her mouth as the patient has jaw dysfunction and scarring in her neck muscles. NECK: No masses, no JVD. Significant neck deformity related to radiation- induced scarring and previous neck surgery. CHEST: No chest wall deformity. LUNGS: Equal air entry with bilateral rhonchi and wheezing with left lower lobe inspiratory crackles. CVS: S1 and S2 normal with no audible murmur, irregular rhythm. No extra heart sounds ABDOMEN: No hepatosplenomegaly, active bowel sounds, no guarding or rigidity. There are two percutaneous feeding tubes. SPINE: No scoliosis or deformity SKIN: No rashes CENTRAL NERVOUS SYSTEM: Sedated, calm and comfortable EXTREMITIES: There is no peripheral edema, clubbing, or cyanosis. Peripheral pulses are intact. - Labs CBC & Chem 7: 08/16/24 04:28 08/16/24 04:28 Labs: Abnormal Lab Results - Last 24 Hours (Table) 08/15/24 08/15/24 08/16/24 Range/Units 12:11 19:15 00:41 WBC (3.8-10.6) k/uL RBC (3.80-5.40) m/uL Hgb (11.4-16.0) gm/dL Hct (34.0-46.0) % ABG pH (7.35-7.45) ABG pCO2 (35-45) mmHg ABG pO2 (83-108) mmHg ABG HCO3 (21-25) mmol/L ABG Total CO2 (19-24) mmol/L Hemoglobin (11.4-16.0) gm/dL Sodium (137-145) mmol/L Potassium (3.5-5.1) mmol/L Chloride (98-107) mmol/L Carbon Dioxide (22-30) mmol/L Creatinine (0.52-1.04) mg/dL Glucose (74-99) mg/dL POC Glucose (mg/dL) 142 H 137 H 126 H (70-110) mg/dL Calcium (8.4-10.2) mg/dL Alkaline Phosphatase (38-126) U/L Total Protein (6.3-8.2) g/dL Albumin (3.5-5.0) g/dL 08/16/24 08/16/24 08/16/24 Range/Units 04:28 04:28 05:45 WBC 10.7 H (3.8-10.6) k/uL RBC 3.15 L (3.80-5.40) m/uL Hgb 9.2 L (11.4-16.0) gm/dL Hct 29.0 L (34.0-46.0) % ABG pH 7.46 H (7.35-7.45) ABG pCO2 53 H (35-45) mmHg ABG pO2 71 L (83-108) mmHg ABG HCO3 38 H (21-25) mmol/L ABG Total CO2 39 H (19-24) mmol/L Hemoglobin 9.3 L (11.4-16.0) gm/dL Sodium 136 L (137-145) mmol/L Potassium 3.3 L (3.5-5.1) mmol/L Chloride 96 L (98-107) mmol/L Carbon Dioxide 37 H (22-30) mmol/L Creatinine 0.43 L (0.52-1.04) mg/dL Glucose 143 H (74-99) mg/dL POC Glucose (mg/dL) (70-110) mg/dL Calcium 8.0 L (8.4-10.2) mg/dL Alkaline Phosphatase 158 H (38-126) U/L Total Protein 4.5 L (6.3-8.2) g/dL Albumin 1.9 L (3.5-5.0) g/dL Microbiology - Last 24 Hours (Table) 08/12/24 17:00 Gram Stain - Final Sputum Sputum Culture - Final Methicillin resist S. aureus Morganella morganii Assessment and Plan Plan: Acute hypoxic respiratory failure secondary to bilateral pneumonia with subsequent aspiration. The patient is currently intubated on mechanical ventilator. The patient was intubated on 08/12/2024. Remains on broad-spectrum a ntibiotics and the patient remains on a combination of Zosyn and vancomycin. Bilateral lower lobe pneumonia, bacterial, likely related to aspiration, sputum sample obtained 08/01 and again on August 06, 2024 positive for MRSA, Morganella, and group B strep and Rosa. Failed outpatient treatment. The patient's pneumonia is polymicrobial. Noted the patient failed Airvo and BiPAP treatment for respiratory support and the patient had to be intubated on 08/12/2024. She did encounter another bout of aspiration in the intensive care unit. Repeat bronchoscopy endobronchial aspirate was obtained for culturing purposes. The bronchial aspirate and lavage is growing Staph aureus and Morganella morganii. Chest x-ray findings are showing stable bilateral pulmonary filtrates and possibly development of a small left-sided pleural effusion, chest x-ray findings are unchanged on 08/16/2024 Sepsis with secondary hypotension, currently on norepinephrine infusion, low- dose at 0.08 mcg/kg/min and the patient is a significant positive fluid balance Acute leukocytosis, secondary to above, improving Atrial fibrillation with a rapid ventricular response, paroxysmal and overnight the patient had A-fib RVR, currently on Cardizem drip at 5 mg an hour and amiodarone infusion at maintenance of 0.5 mg/min. History of recurrent aspiration pneumonia and MRSA pneumonia. 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 Nothing by mouth, the patient receiving enteral feeding for nutritional support via PEG tube. History of radiation pneumonitis Xerostomia History of DVT/PE, anticoagulated on Eliquis History of hypothyroidism History of seizure disorder Plan: Continue vent support, no changes for today Keep the patient sedated on propofol IV fluids to KVO Increased IV Lasix to 40 mg every 8 hours and give a dose of Zaroxolyn 5 mg p.o. x 1 Continue Zosyn and vancomycin Cultures from the bronchial lavage was noted and is positive for Morganella and MRSA Continue amiodarone drip for rate control Cardizem drip at 5 mg an hour Metoprolol 25 mg p.o. twice a day Wean off norepinephrine and discontinue Monitor the heart rate Anticoagulated with Eliquis Continue Eraxis per ID Continue bronchodilators Enteral tube feedings, the G-tube has been replaced. Condition is obviously critical. Will continue to follow make further recommendations based on progress. Evaluation was done more than 30 minutes. Time with Patient: Greater than 30
[2024-08-16 11:48] LABS: Glucose,Whole Blood 166 mg/dL (70-110)
--- NOTE | 2024-08-16 13:34 | P.PN ---
Subjective Progress Note Date: 08/16/24 This is a pleasant 63 years old female with past medical history of multiple medical problems. Patient called her PCP office of Dr. Anderson and talked to his nurse practitioner Lynnette from she sees in the office complaining from little shortness of breath for the last 4 to 5 days with some cough and phlegm Associated with left lateral chest pain about 7/10 that is worse with coughing and deep breath. Her nurse practitioner Lynnette asked her to get sputum sample and resulted back as MRSA so she got a call from the office to head to the emergency room Currently she is endorsing the same symptoms as above However she denies any specific GI/ symptoms no headache dizziness weakness or numbness She quit smoking years ago with no alcohol or illicit drugs as well She is not on oxygen at home She has a known history of mouth cancer s/p left-sided jaw replacement She does not eat but uses a PEG tube for feeding 2 weeks ago she saw her oncologist and Dr. gastelum her research investigator and she was doing fine Patient has afebrile in the emergency room She was saturating 90s on 4 L oxygen via nasal cannula Blood pressure is soft On admission she has leukocytosis of 28,000. Will BMP and LFTs were unremarkable as well as INR proBNP is 248 Chest x-ray showing left lower lobe infiltrate suspicious for pneumonia Patient was started on IV vancomycin and Zosyn and normal saline with pulmonary and ID team consult 08/07/2023 Patient sitting up in bed looks similar to yesterday, complaining from some pain in her left side of the chest but it looks controlled and patient is not in distress No significant dyspnea or tachypnea, she can go to the bathroom by herself with no exertional dyspnea However her oxygen requirement increased from 4 L up to 10 L today. Blood pressure is borderline and patient says usually her blood pressure on the low side Repeat chest x-ray showing similar left lower lobe infiltrate. 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 Further workup including sputum culture and blood culture are pending. Blood pressure improved Remains on IV vancomycin and ceftriaxone IV fluid was lower dose 130 down to 75 mL/h Pro- Calcitonin is negative 08/09. Patient seen and examined. Currently on 11 L of oxygen. Patient had her jejunostomy tube not functioning, surgery consulted, they order CT abdominal p jasmina 08/10. Patient seen and examined. Patient went into A-fib with RVR overnight, had worsening respiratory status. Patient had rapid sponsor called and was transferred to ICU. Patient currently on Airvo. Gets short of breath on exertion 08/11 Patient respiratory status got worse and she was moved to the ICU. Currently she is awake alert but requires 60 L/min with 90% of FiO2 Abdomen soft, PEG tube is in place No headache or dizziness WBC is trending down to 16,000, hemoglobin down to two 9.7 Pro- Calcitonin increased to 1.6 and 1 extra dose of MiraLAX is added to her antibiotic Ejection fraction is 65 to 70% CT of the abdomen pelvis showing nonobstructive lesion Patient currently covered with IV vancomycin and ceftriaxone and Eraxis, also patient developed A-fib with RVR and followed by software firmware engineer, started on Eliquis at metoprolol also patient continued on aspirin 08/12 Patient currently remains in the ICU, her breathing function gets worse overnight, yesterday she had to be placed on nonrebreather, and Worsened currently and she was placed on BiPAP in the morning with a setting of 15/10 and FiO2 of 100% Patient herself is awake and alert, she says that her breathing is hard but similar to yesterday. She is saturating about 92% on this current BiPAP setting. She denies chest pain She still mildly tachycardic with heart rate 126 with A-fib and RVR, currently she has been followed by software firmware engineer and getting Cardizem drip at 15 mg/h. Discussed the case with pulmonary service regarding her worsening send respiratory symptoms. Patient may require intubation patient is agreeable however because of her mild surgery will be very difficult situation. Therefore they will try to give her some more time before needed intervention. Repeat chest x-ray from this morning showing worsening pneumonia Yesterday pro- Calcitonin was worsened and her antibiotics were updated per ID team, currently on IV vancomycin, ceftriaxone and Eraxis. Also she is continued on Eliquis for new diagnosis of A-fib. Also she is on aspirin 81 mg, oral 08/13 Yesterday night patient still complaining from respiratory distress had to be intubated and currently she is on mechanical ventilation. Her blood pressure is stable and she is afebrile. Labs showing worsening leukocytosis to 21,000, hemoglobin slightly less than 10.3 Patient remains on broad-spectrum antibiotics with IV vancomycin,Ceftriaxone and Eraxis She is also on amiodarone drip, Eliquis 5 mg twice daily and aspirin 81 mg. 08/14 Patient remains in the ICU intubated and sedated. Her FiO2 today was 50% She is afebrile and rest of vitals look stable Leukocytosis is also improving down to 14,000, hemoglobin stable at 9.5. Patient currently covered with Eliquis and metoprolol and digoxin x 1 per Cardi ologist She remains on IV vancomycin, Zosyn and Eraxis Abdominal wound is closed with no drains Rios catheter in place 08/15. Patient seen and examined. Currently intubated. Family at the bedside, questions answered 08/16. Patient seen and examined. Blood work done this morning showed WBC 10.7, hemoglobin 9.2, sodium 130s, potassium 3.3 BUN 9, creatinine 0.43. Chest x-ray done this morning showed worsening infiltrates. Lasix dose has been changed to 40 mg 3 times daily. REVIEW OF SYSTEMS: Review of system cannot be obtained as patient is intubated PHYSICAL EXAMINATION: GENERAL: The patient is intubated HEENT: Pupils are round and equally reacting to light. EOMI. No scleral icterus. No conjunctival pallor. Normocephalic, atraumatic. No pharyngeal erythema. No thyromegaly. CARDIOVASCULAR: S1 and S2 present. No murmurs, rubs, or gallops. PULMONARY coarse breath sounds bilaterally, bilateral crackles audible ABDOMEN: Soft, nontender, nondistended, normoactive bowel sounds. No palpable organomegaly. Jejunostomy tube seen MUSCULOSKELETAL: No joint swelling or deformity. EXTREMITIES: No cyanosis, clubbing, 1+ pitting edema of lower extremities bilaterally NEUROLOGICAL: Intubated SKIN: No rashes. Assessment and plan Bilateral pneumonia putum sample obtained 08/01 and again on August 06, 2024 positive for MRSA, Morganella, and group B strep and Rosa Sepsis secondary to above Acute hypoxic respiratory failure secondary to above Mild calorie protein malnutrition History of mouth cancer , currently she uses PEG tube for nutrition COPD, not in acute acute issue History of pneumonia not on anticoagulation History of seizure Monitor vital signs Monitor CBC Monitor CMP Continue telemetry monitoring Aggressive bronchopulmonary hygiene Continue vent management Follow-up on blood cultures Continue breathing treatment Continue amiodarone, Lopressor, Eliquis Strict I's and O's, daily weights, Lasix 40 mg every 8 Continue vancomycin, cefepime, Eraxis Continue breathing treatments ID following Pulmonology following Labs and medication were reviewed.. Continue same treatment. Continue with symptomatic treatment. Resume home medication. Monitor labs and vitals. DVT and GI prophylaxis. Further recommendations as per clinical course of the patient Dictation was produced using [employer] dictation software. please excuse any grammatical, word or spelling errors. Objective - Vital Signs Vital signs: Vital Signs Temp 98.0 F 08/16/24 08:00 Pulse 94 08/16/24 09:29 Resp 20 08/16/24 09:29 BP 142/71 08/15/24 11:15 Pulse Ox 94 L 08/16/24 09:00 FiO2 60 08/16/24 09:29 Intake & Output 08/15/24 08/16/24 08/16/24 18:59 06:59 18:59 Intake Total 0654.505 2959.519 294.776 Output Total 1939 2014 900 Balance -858.708 -848.481 -605.224 Weight 68.4 kg 66.2 kg Intake: IV 333 299 146 0.9 NS 138 6 A Line 33 141 40 Cefepime 2 gm In Sodium 100 Chloride 0.9% 100 ml @ 25 mls/hr IVPB Q8HR [facility] Rx# :[id number] Sodium Chloride 0.9% 1, 300 20 000 ml @ 100 mls/hr IV . Q10H [facility] Rx#:[id number] Intake, IV Titration 196.292 147.519 34.776 Amount Diltiazem 125 mg In 124.5 Sodium Chloride 0.9% 100 ml @ 5 MG/HR 5 mls/hr IV .Q24H [facility] Rx#:[id number] Norepinephrine 8 mg In 18.368 56.255 Sodium Chloride 0.9% 250 ml @ 0.03 MCG/KG/MIN 3. 251 mls/hr IV .Q24H [facility] Rx#:[id number] propofoL 1,000 mg In 53.424 91.264 34.776 Empty Bag 1 bag @ 15 MCG/ KG/MIN 5.04 mls/hr IV . [id number] [facility] Rx#:[id number] Tube Feeding 462 630 84 Other 90 90 30 Output: Urine 1939 2014 700 Stool 200 Other: Voiding Method Indwelling Catheter Indwelling Catheter Indwelling Catheter ABP, PAP, CO, CI - Last Documented Arterial Blood Pressure 106/63 - Labs CBC & Chem 7: 08/16/24 04:28 08/16/24 04:28 Labs: Abnormal Lab Results - Last 24 Hours (Table) 08/15/24 08/15/24 08/16/24 Range/Units 12:11 19:15 00:41 WBC (3.8-10.6) k/uL RBC (3.80-5.40) m/uL Hgb (11.4-16.0) gm/dL Hct (34.0-46.0) % ABG pH (7.35-7.45) ABG pCO2 (35-45) mmHg ABG pO2 (83-108) mmHg ABG HCO3 (21-25) mmol/L ABG Total CO2 (19-24) mmol/L Hemoglobin (11.4-16.0) gm/dL Sodium (137-145) mmol/L Potassium (3.5-5.1) mmol/L Chloride (98-107) mmol/L Carbon Dioxide (22-30) mmol/L Creatinine (0.52-1.04) mg/dL Glucose (74-99) mg/dL POC Glucose (mg/dL) 142 H 137 H 126 H (70-110) mg/dL Calcium (8.4-10.2) mg/dL Alkaline Phosphatase (38-126) U/L Total Protein (6.3-8.2) g/dL Albumin (3.5-5.0) g/dL 08/16/24 08/16/24 08/16/24 Range/Units 04:28 04:28 05:45 WBC 10.7 H (3.8-10.6) k/uL RBC 3.15 L (3.80-5.40) m/uL Hgb 9.2 L (11.4-16.0) gm/dL Hct 29.0 L (34.0-46.0) % ABG pH 7.46 H (7.35-7.45) ABG pCO2 53 H (35-45) mmHg ABG pO2 71 L (83-108) mmHg ABG HCO3 38 H (21-25) mmol/L ABG Total CO2 39 H (19-24) mmol/L Hemoglobin 9.3 L (11.4-16.0) gm/dL Sodium 136 L (137-145) mmol/L Potassium 3.3 L (3.5-5.1) mmol/L Chloride 96 L (98-107) mmol/L Carbon Dioxide 37 H (22-30) mmol/L Creatinine 0.43 L (0.52-1.04) mg/dL Glucose 143 H (74-99) mg/dL POC Glucose (mg/dL) (70-110) mg/dL Calcium 8.0 L (8.4-10.2) mg/dL Alkaline Phosphatase 158 H (38-126) U/L Total Protein 4.5 L (6.3-8.2) g/dL Albumin 1.9 L (3.5-5.0) g/dL Microbiology - Last 24 Hours (Table) 08/12/24 17:00 Gram Stain - Final Sputum Sputum Culture - Final Methicillin resist S. aureus Morganella morganii
--- NOTE | 2024-08-16 14:31 | P.PN ---
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 Patient chest x-ray right lower lobe infiltrate. On today's evaluation that is 08/15/2024, the patient continues to be afebrile, the patient is on ventilator, the patient FiO2 40%, patient is hemodynamic stable not requiring any pressor support, patient did have some diarrhea requiring fecal management system, no other changes reported by nursing staff. Patient white count is down to 12.7, creatinine 0.41 sputum is now growing MRSA and Morganella sensitive to cefepime and Zosyn intermediate to ceftriaxone, stool for C. difficile negative Objective - Vital Signs Vital signs: Vital Signs Temp 98.9 F 08/15/24 12:00 Pulse 82 08/15/24 12:30 Resp 18 08/15/24 12:30 BP 142/71 08/15/24 11:15 Pulse Ox 95 08/15/24 12:30 FiO2 50 08/15/24 12:00 Intake & Output 08/14/24 08/15/24 08/15/24 18:59 06:59 18:59 Intake Total 2406.680 2651.430 621.539 Output Total 745 490 690 Balance 9288.959 5784.430 -68.461 Weight 64.6 kg 68.4 kg 68.4 kg Intake: IV 800 1836 195 A Line 36 15 Anidulafungin 100 mg In 100 Sodium Chloride 0.9% 100 ml @ 84 mls/hr IVPB DAILY @1700 [facility] Rx#:[id number] Piperacillin-Tazobactam 3 100 100 .375 gm In Sodium Chloride 0.9% 100 ml @ 25 mls/hr IVPB Q8HR [facility] Rx# :[id number] Potassium Chloride 20 meq 100 In Water For Injection 1 100ml.bag @ 50 mls/hr IVPB ONCE ONE Rx#: [id number] Sodium Chloride 0.9% 1, 1200 180 000 ml @ 100 mls/hr IV . Q10H [facility] Rx#:[id number] Sodium Chloride 0.9% 1, 500 000 ml @ 20 mls/hr IV . Q24H [facility] Rx#:[id number] Vancomycin 1,000 mg In 500 Sodium Chloride 0.9% 250 ml @ 125 mls/hr IVPB Q8H [facility] Rx#:[id number] Intake, IV Titration 1316.680 263.430 186.539 Amount Amiodarone 450 mg In 233.894 Dextrose 5% in Water 250 ml @ 0.5 MG/MIN 16.667 mls/hr IV .Q15H [facility] Rx#: [id number] Diltiazem 125 mg In 124.5 Sodium Chloride 0.9% 100 ml @ 5 MG/HR 5 mls/hr IV .Q24H [facility] Rx#:[id number] Norepinephrine 8 mg In 140.826 66.370 8.615 Sodium Chloride 0.9% 250 ml @ 0.03 MCG/KG/MIN 3. 251 mls/hr IV .Q24H [facility] Rx#:[id number] Potassium Chloride 20 meq 100 In Water For Injection 1 100ml.bag @ 50 mls/hr IVPB ONCE ONE Rx#: [id number] Sodium Chloride 0.9% 1, 700 100 000 ml @ 100 mls/hr IV . Q10H [facility] Rx#:[id number] propofoL 1,000 mg In 141.96 97.06 53.424 Empty Bag 1 bag @ 15 MCG/ KG/MIN 5.04 mls/hr IV . [id number] [facility] Rx#:[id number] Tube Feeding 200 462 210 Other 90 90 30 Output: Urine 745 490 690 Other: Voiding Method Indwelling Catheter Indwelling Catheter Indwelling Catheter # Bowel Movements 1 1 ABP, PAP, CO, CI - Last Documented Arterial Blood Pressure 106/49 - Exam GENERAL DESCRIPTION: Elderly female intubated on the vent RESPIRATORY SYSTEM: Unlabored breathing , coarse breath sounds at bases HEART: S1 S2 regular rate and rhythm , ABDOMEN: Soft , no tenderness EXTREMITIES: No edema feet - Labs CBC & Chem 7: 08/16/24 04:28 08/16/24 04:28 Labs: Abnormal Lab Results - Last 24 Hours (Table) 08/14/24 08/14/24 08/15/24 Range/Units 17:38 23:34 05:06 WBC 12.7 H (3.8-10.6) k/uL RBC 3.17 L (3.80-5.40) m/uL Hgb 9.2 L (11.4-16.0) gm/dL Hct 29.9 L (34.0-46.0) % MCHC 30.7 L (31.0-37.0) g/dL Neutrophils # 10.8 H (1.3-7.7) k/uL Lymphocytes # 0.9 L (1.0-4.8) k/uL ABG pCO2 (35-45) mmHg ABG HCO3 (21-25) mmol/L ABG Total CO2 (19-24) mmol/L ABG O2 Saturation (94-97) % Hemoglobin (11.4-16.0) gm/dL Carbon Dioxide (22-30) mmol/L Creatinine (0.52-1.04) mg/dL Glucose (74-99) mg/dL POC Glucose (mg/dL) 137 H 147 H (70-110) mg/dL Calcium (8.4-10.2) mg/dL 08/15/24 08/15/24 08/15/24 Range/Units 05:06 05:41 06:21 WBC (3.8-10.6) k/uL RBC (3.80-5.40) m/uL Hgb (11.4-16.0) gm/dL Hct (34.0-46.0) % MCHC (31.0-37.0) g/dL Neutrophils # (1.3-7.7) k/uL Lymphocytes # (1.0-4.8) k/uL ABG pCO2 52 H (35-45) mmHg ABG HCO3 33 H (21-25) mmol/L ABG Total CO2 34 H (19-24) mmol/L ABG O2 Saturation 98.2 H (94-97) % Hemoglobin 9.0 L (11.4-16.0) gm/dL Carbon Dioxide 34 H (22-30) mmol/L Creatinine 0.41 L (0.52-1.04) mg/dL Glucose 147 H (74-99) mg/dL POC Glucose (mg/dL) 164 H (70-110) mg/dL Calcium 7.9 L (8.4-10.2) mg/dL 08/15/24 Range/Units 12:11 WBC (3.8-10.6) k/uL RBC (3.80-5.40) m/uL Hgb (11.4-16.0) gm/dL Hct (34.0-46.0) % MCHC (31.0-37.0) g/dL Neutrophils # (1.3-7.7) k/uL Lymphocytes # (1.0-4.8) k/uL ABG pCO2 (35-45) mmHg ABG HCO3 (21-25) mmol/L ABG Total CO2 (19-24) mmol/L ABG O2 Saturation (94-97) % Hemoglobin (11.4-16.0) gm/dL Carbon Dioxide (22-30) mmol/L Creatinine (0.52-1.04) mg/dL Glucose (74-99) mg/dL POC Glucose (mg/dL) 142 H (70-110) mg/dL Calcium (8.4-10.2) mg/dL Microbiology - Last 24 Hours (Table) 08/12/24 17:00 Gram Stain - Final Sputum Sputum Culture - Final Methicillin resist S. aureus Morganella morganii 08/11/24 12:31 Blood Culture - Preliminary Blood Assessment and Plan (1) MRSA (methicillin resistant Staphylococcus aureus) infection Current Visit: Yes Status: Acute Code(s): A49.02 - METHICILLIN RESIS STAPH INFECTION, UNSP SITE SNOMED Code(s): 148586374 (2) Allergy to sulfa drugs Current Visit: Yes Status: Acute Code(s): Z88.2 - ALLERGY STATUS TO SULFONAMIDES SNOMED Code(s): 79473856 (3) Failure of outpatient treatment Current Visit: Yes Status: Acute Code(s): Z78.9 - OTHER SPECIFIED HEALTH STATUS SNOMED Code(s): 473190374 (4) Pneumonia Current Visit: Yes Status: Acute Code(s): J18.9 - PNEUMONIA, UNSPECIFIED ORGANISM SNOMED Code(s): 398292413 Plan: 1patient presented hospital with increasing shortness of breath also have a cough bringing up some bloodstained sputum chest x-ray with a left lobe infiltrate patient did have elevated white count 28,000 with recent outpatient sputum culture positive for Streptococcus agalactiae MRSA and Morganella 2-patient is afebrile and the patient white count is trending down repeat cultures are currently growing MRSA and Morganella that is sensitive to Zosyn and cefepime intermediate to ceftriaxone 4patient continue with vancomycin pharmacy to dose target of 15 we will switch Zosyn to cefepime to decrease risk of nephrotoxicity Family at the bedside, multiple question and concerns answered Dictation was produced using [employer] dictation software. please excuse any g rammatical, word or spelling errors. Time with Patient: Less than 30
--- NOTE | 2024-08-16 14:32 | P.PN ---
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 Patient chest x-ray right lower lobe infiltrate. On today's evaluation that is 08/16/2024, patient did have a low-grade fever of 100.2 F last night and 100.1 at 4 AM patient is afebrile this morning, the patient FiO2 currently at 60%, patient is hemodynamically stable not requiring any pressor support no significant purulent secretion through the ET has been reported. Patient white count is down to 10.7 creatinine is 0.43 stool for C. difficile is negative Objective - Vital Signs Vital signs: Vital Signs Temp 98.0 F 08/16/24 08:00 Pulse 103 H 08/16/24 11:00 Resp 17 08/16/24 11:00 BP 142/71 08/15/24 11:15 Pulse Ox 96 08/16/24 11:00 FiO2 60 08/16/24 11:36 Intake & Output 08/15/24 08/16/24 08/16/24 18:59 06:59 18:59 Intake Total 9699.335 8002.519 458.292 Output Total 1939 2014 2199 Balance -858.708 -848.481 -1741.708 Weight 68.4 kg 66.2 kg Intake: IV 333 299 192 0.9 NS 138 12 A Line 33 141 80 Cefepime 2 gm In Sodium 100 Chloride 0.9% 100 ml @ 25 mls/hr IVPB Q8HR [facility] Rx# :[id number] Sodium Chloride 0.9% 1, 300 20 000 ml @ 100 mls/hr IV . Q10H [facility] Rx#:[id number] Intake, IV Titration 196.292 147.519 68.292 Amount Diltiazem 125 mg In 124.5 Sodium Chloride 0.9% 100 ml @ 5 MG/HR 5 mls/hr IV .Q24H [facility] Rx#:[id number] Norepinephrine 8 mg In 18.368 56.255 Sodium Chloride 0.9% 250 ml @ 0.03 MCG/KG/MIN 3. 251 mls/hr IV .Q24H [facility] Rx#:[id number] propofoL 1,000 mg In 53.424 91.264 68.292 Empty Bag 1 bag @ 15 MCG/ KG/MIN 5.04 mls/hr IV . [id number] [facility] Rx#:[id number] Tube Feeding 462 630 168 Other 90 90 30 Output: Urine 1939 2014 1999 Stool 200 Other: Voiding Method Indwelling Catheter Indwelling Catheter Indwelling Catheter ABP, PAP, CO, CI - Last Documented Arterial Blood Pressure 95/55 - Exam GENERAL DESCRIPTION: Elderly female intubated on the vent RESPIRATORY SYSTEM: Unlabored breathing , coarse breath sounds at bases HEART: S1 S2 regular rate and rhythm , ABDOMEN: Soft , no tenderness EXTREMITIES: No edema feet - Labs CBC & Chem 7: 08/16/24 04:28 08/16/24 04:28 Labs: Abnormal Lab Results - Last 24 Hours (Table) 08/15/24 08/15/24 08/16/24 Range/Units 12:11 19:15 00:41 WBC (3.8-10.6) k/uL RBC (3.80-5.40) m/uL Hgb (11.4-16.0) gm/dL Hct (34.0-46.0) % ABG pH (7.35-7.45) ABG pCO2 (35-45) mmHg ABG pO2 (83-108) mmHg ABG HCO3 (21-25) mmol/L ABG Total CO2 (19-24) mmol/L Hemoglobin (11.4-16.0) gm/dL Sodium (137-145) mmol/L Potassium (3.5-5.1) mmol/L Chloride (98-107) mmol/L Carbon Dioxide (22-30) mmol/L Creatinine (0.52-1.04) mg/dL Glucose (74-99) mg/dL POC Glucose (mg/dL) 142 H 137 H 126 H (70-110) mg/dL Calcium (8.4-10.2) mg/dL Alkaline Phosphatase (38-126) U/L Total Protein (6.3-8.2) g/dL Albumin (3.5-5.0) g/dL 08/16/24 08/16/24 08/16/24 Range/Units 04:28 04:28 05:45 WBC 10.7 H (3.8-10.6) k/uL RBC 3.15 L (3.80-5.40) m/uL Hgb 9.2 L (11.4-16.0) gm/dL Hct 29.0 L (34.0-46.0) % ABG pH 7.46 H (7.35-7.45) ABG pCO2 53 H (35-45) mmHg ABG pO2 71 L (83-108) mmHg ABG HCO3 38 H (21-25) mmol/L ABG Total CO2 39 H (19-24) mmol/L Hemoglobin 9.3 L (11.4-16.0) gm/dL Sodium 136 L (137-145) mmol/L Potassium 3.3 L (3.5-5.1) mmol/L Chloride 96 L (98-107) mmol/L Carbon Dioxide 37 H (22-30) mmol/L Creatinine 0.43 L (0.52-1.04) mg/dL Glucose 143 H (74-99) mg/dL POC Glucose (mg/dL) (70-110) mg/dL Calcium 8.0 L (8.4-10.2) mg/dL Alkaline Phosphatase 158 H (38-126) U/L Total Protein 4.5 L (6.3-8.2) g/dL Albumin 1.9 L (3.5-5.0) g/dL 08/16/24 Range/Units 11:46 WBC (3.8-10.6) k/uL RBC (3.80-5.40) m/uL Hgb (11.4-16.0) gm/dL Hct (34.0-46.0) % ABG pH (7.35-7.45) ABG pCO2 (35-45) mmHg ABG pO2 (83-108) mmHg ABG HCO3 (21-25) mmol/L ABG Total CO2 (19-24) mmol/L Hemoglobin (11.4-16.0) gm/dL Sodium (137-145) mmol/L Potassium (3.5-5.1) mmol/L Chloride (98-107) mmol/L Carbon Dioxide (22-30) mmol/L Creatinine (0.52-1.04) mg/dL Glucose (74-99) mg/dL POC Glucose (mg/dL) 166 H (70-110) mg/dL Calcium (8.4-10.2) mg/dL Alkaline Phosphatase (38-126) U/L Total Protein (6.3-8.2) g/dL Albumin (3.5-5.0) g/dL Microbiology - Last 24 Hours (Table) 08/12/24 17:00 Gram Stain - Final Sputum Sputum Culture - Final Methicillin resist S. aureus Morganella morganii Assessment and Plan (1) MRSA (methicillin resistant Staphylococcus aureus) infection Current Visit: Yes Status: Acute Code(s): A49.02 - METHICILLIN RESIS STAPH INFECTION, UNSP SITE SNOMED Code(s): 192184407 (2) Allergy to sulfa drugs Current Visit: Yes Status: Acute Code(s): Z88.2 - ALLERGY STATUS TO SULFONAMIDES SNOMED Code(s): 99860787 (3) Failure of outpatient treatment Current Visit: Yes Status: Acute Code(s): Z78.9 - OTHER SPECIFIED HEALTH ST ATUS SNOMED Code(s): 515462377 (4) Pneumonia Current Visit: Yes Status: Acute Code(s): J18.9 - PNEUMONIA, UNSPECIFIED ORGANISM SNOMED Code(s): 286531750 Plan: 1patient presented hospital with increasing shortness of breath also have a cough bringing up some bloodstained sputum chest x-ray with a left lobe infiltrate patient did have elevated white count 28,000 with recent outpatient sputum culture positive for Streptococcus agalactiae MRSA and Morganella 2-patient repeat cultures are currently growing MRSA and Morganella that is sensitive to Zosyn and cefepime intermediate to ceftriaxone 4patient did have a low-grade fever 100.2 F however white count is down and almost normalized continue with vancomycin pharmacy to dose target of 15 and cefepime, will monitor clinical course closely Family at the bedside, multiple question and concerns answered Dictation was produced using [employer] software. please excuse any grammatical, word or spelling errors. Time with Patient: Less than 30
--- NOTE | 2024-08-16 15:27 | P.PN ---
Subjective Pt seen and evalauted at bedside. Patient tolerating tube feeds, no overnight issues. Objective - Vital Signs Vital signs: Vital Signs Temp 98.1 F 08/16/24 12:00 Pulse 109 H 08/16/24 15:22 Resp 17 08/16/24 15:22 BP 142/71 08/15/24 11:15 Pulse Ox 96 08/16/24 15:00 FiO2 50 08/16/24 15:19 Intake & Output 08/15/24 08/16/24 08/16/24 18:59 06:59 18:59 Intake Total 4284.801 4235.519 998.292 Output Total 1939 2014 3649 Balance -858.708 -848.481 -2651.708 Weight 68.4 kg 66.2 kg Intake: IV 333 299 534 0.9 NS 138 24 A Line 33 141 160 Cefepime 2 gm In Sodium 100 Chloride 0.9% 100 ml @ 25 mls/hr IVPB Q8HR [facility] Rx# :[id number] Sodium Chloride 0.9% 1, 300 20 000 ml @ 100 mls/hr IV . Q10H [facility] Rx#:[id number] Vancomycin 1,000 mg In 250 Sodium Chloride 0.9% 250 ml @ 125 mls/hr IVPB Q8H [facility] Rx#:[id number] Intake, IV Titration 196.292 147.519 68.292 Amount Diltiazem 125 mg In 124.5 Sodium Chloride 0.9% 100 ml @ 5 MG/HR 5 mls/hr IV .Q24H [facility] Rx#:[id number] Norepinephrine 8 mg In 18.368 56.255 Sodium Chloride 0.9% 250 ml @ 0.03 MCG/KG/MIN 3. 251 mls/hr IV .Q24H [facility] Rx#:[id number] propofoL 1,000 mg In 53.424 91.264 68.292 Empty Bag 1 bag @ 15 MCG/ KG/MIN 5.04 mls/hr IV . [id number] [facility] Rx#:[id number] Tube Feeding 462 630 336 Other 90 90 60 Output: Urine 1939 2014 3450 Stool 200 Other: Voiding Method Indwelling Catheter Indwelling Catheter Indwelling Catheter ABP, PAP, CO, CI - Last Documented Arterial Blood Pressure 110/56 - Exam gen: nad cv: rrr pul: non labored breathing abd: soft, non distended, j tube in place, no drainage - Labs CBC & Chem 7: 08/16/24 04:28 08/16/24 04:28 Labs: Abnormal Lab Results - Last 24 Hours (Table) 08/15/24 08/16/24 08/16/24 Range/Units 19:15 00:41 04:28 WBC 10.7 H (3.8-10.6) k/uL RBC 3.15 L (3.80-5.40) m/uL Hgb 9.2 L (11.4-16.0) gm/dL Hct 29.0 L (34.0-46.0) % ABG pH (7.35-7.45) ABG pCO2 (35-45) mmHg ABG pO2 (83-108) mmHg ABG HCO3 (21-25) mmol/L ABG Total CO2 (19-24) mmol/L Hemoglobin (11.4-16.0) gm/dL Sodium (137-145) mmol/L Potassium (3.5-5.1) mmol/L Chloride (98-107) mmol/L Carbon Dioxide (22-30) mmol/L Creatinine (0.52-1.04) mg/dL Glucose (74-99) mg/dL POC Glucose (mg/dL) 137 H 126 H (70-110) mg/dL Calcium (8.4-10.2) mg/dL Alkaline Phosphatase (38-126) U/L Total Protein (6.3-8.2) g/dL Albumin (3.5-5.0) g/dL 08/16/24 08/16/24 08/16/24 Range/Units 04:28 05:45 11:46 WBC (3.8-10.6) k/uL RBC (3.80-5.40) m/uL Hgb (11.4-16.0) gm/dL Hct (34.0-46.0) % ABG pH 7.46 H (7.35-7.45) ABG pCO2 53 H (35-45) mmHg ABG pO2 71 L (83-108) mmHg ABG HCO3 38 H (21-25) mmol/L ABG Total CO2 39 H (19-24) mmol/L Hemoglobin 9.3 L (11.4-16.0) gm/dL Sodium 136 L (137-145) mmol/L Potassium 3.3 L (3.5-5.1) mmol/L Chloride 96 L (98-107) mmol/L Carbon Dioxide 37 H (22-30) mmol/L Creatinine 0.43 L (0.52-1.04) mg/dL Glucose 143 H (74-99) mg/dL POC Glucose (mg/dL) 166 H (70-110) mg/dL Calcium 8.0 L (8.4-10.2) mg/dL Alkaline Phosphatase 158 H (38-126) U/L Total Protein 4.5 L (6.3-8.2) g/dL Albumin 1.9 L (3.5-5.0) g/dL Assessment and Plan Assessment: j tube working appropriately continue tube feeds no issues advance tube feeds to goal Time with Patient: Less than 30
--- NOTE | 2024-08-16 15:55 | P.PN ---
Subjective History of Present Illness: The patient is a 63-year-old female, status post radical neck dissection for oral cancer and reconstructive surgery, history of PEG tube because of recurrent aspiration who was admitted to the hospital because of progressive dyspnea cough and was noted to have recurrent aspiration pneumonia. Yesterday she had an episode of atrial fibrillation with rapid ventricle response and is transferred to the ICU. She was hypotensive. She is back in sinus mechanism this morning and continues to be on IV Cardizem. She had a prior history of what appears to be DVT probably in her arm and has been anticoagulated. According to the family it is unclear if she had any arterial embolization from atrial fibrillation, she has been followed at [facility] and has been on anticoagulation since. She has no history of myocardial infarction or documented CHF. Her activity level is quite limited. She continues to be dyspneic and has a cough but she denies any chest discomfort, peripheral edema, PND or orthopnea. No evaluation of her systolic function is available to me. Her NT proBNP was elevated. She has no history of PND, orthopnea. According to her she had no recurrent atrial fibrillation since 6 years ago. She has no history of diabetes or hyperlipidemia. Medications: As an outpatient she is on Eliquis 5 mg twice a day, gabapentin, aspirin, Cymbalta 08/11 Patient seen and examined. Patient denies chest pain or pressure. Echocardiogram performed this morning which shows EF 65-70% with hyperdynamic function, no mitral regurgitation, [id number] tricuspid regurgitation. She was on Cardizem drip at 10 however this was decreased to 5 and is currently in sinus rhythm. She was not very symptomatic in terms of feeling her A. fib during the episode. She is tolerating metoprolol 25 twice a day. 08/12 Patient seen and examined. Patient with more respiratory distress. Her heart rate has been increased up in the low 110s consistently and then now more recently up in the 150s to 160s. She remains on Cardizem drip at 15. Lasix 20 mg IV twice a day was started today. 08/13 Patient seen and examined. Patient had increasing respiratory distress with vomiting and aspiration and eventually underwent intubation and bronchoscopy with significant secretions removed. She was being diuresed yesterday however had more hypotension around the time of intubation and therefore has been given IV fluids. She was tachycardic and had been on a Cardizem drip as well as amiodarone drip however with intubation and sedation heart rates have improved. Cardizem was stopped and patient has been on digoxin. Patient does have significant issues with aspiration in the past per family and briefly discussed this would likely have some increased risks evaluated were to consider a TALON cardioversion. At this point however heart rates better controlled mainly in the 90s to 100s. 08/14 Patient seen and examined. Remains in A. fib with heart rates in the 100-120 range. Remains on ventilator with FiO2 50% and PEEP of 8. On norepinephrine at 0.08. Remains on amiodarone drip. 08/15 Patient seen and examined. Patient converted to normal sinus rhythm. We will stop the Cardizem drip. Hold metoprolol she is in normal rhythm. She remains on ventilator with FiO2 40% and a PEEP of 6. She has been receiving IV fluids with a total of 100 mL per hour and is +3 L for each of the last 2 days. Does have some increasing generalized edema. 08/16 patient seen and examined. Patient remains intubated and sedated. She was in normal sinus rhythm yesterday however went back in A. fib with RVR and therefore was placed back on Cardizem drip currently at 5 and amiodarone drip. Respiratory status has been labile with FiO2 percent up to 60% and now down to 50%. Her IV fluids were discontinued and started on IV Lasix. Physical Examination: VS reviewed Head: Status post radical neck dissection and reconstruction of the jaw Eyes: Sclerae nonicteric. Neck: Good carotid upstroke, no bruit, Lungs: Bilateral rhonchi at the bases Heart: Regular rate and rhythm, S1-S2, no S3, no rub. Systolic ejection murmur. Abdomen: Soft nontender, positive bowel sounds no organomegaly, PEG tube in place. Extremities: No edema, intact distal pulses. Impression: 1. Paroxysmal atrial fibrillation probably exacerbated by the lung status. Patient has been anticoagulated and had a remote history of atrial fibrillation. Back in sinus 2. Recurrent aspiration pneumonia 3. Status post PEG tube placement 4. Elevation of NT proBNP with no clear symptoms or findings on examination of heart failure, could be exacerbated by the lung status 5. Status post oral cancer and radical neck dissection and reconstructive surgery 6. Leukocytosis improving 7. History of DVT Plan: patient back in A. fib with RVR and continue with IV amiodarone as well as Cardizem drip. Does appear volume overloaded exacerbated by third spacing and protein calorie malnutrition. IV Lasix and monitor response. Prognosis guarded . Objective - Vital Signs Vital signs: Vital Signs Temp 98.1 F 08/16/24 12:00 Pulse 111 H 08/16/24 15:32 Resp 17 08/16/24 15:32 BP 142/71 08/15/24 11:15 Pulse Ox 96 08/16/24 15:00 FiO2 50 08/16/24 15:19 Intake & Output 08/15/24 08/16/24 08/16/24 18:59 06:59 18:59 Intake Total 0044.288 4802.519 998.292 Output Total 19390 Balance -858.708 -848.481 -2651.708 Weight 68.4 kg 66.2 kg Intake: IV 333 299 534 0.9 NS 138 24 A Line 33 141 160 Cefepime 2 gm In Sodium 100 Chloride 0.9% 100 ml @ 25 mls/hr IVPB Q8HR [facility] Rx# :[id number] Sodium Chloride 0.9% 1, 300 20 000 ml @ 100 mls/hr IV . Q10H [facility] Rx#:[id number] Vancomycin 1,000 mg In 250 Sodium Chloride 0.9% 250 ml @ 125 mls/hr IVPB Q8H [facility] Rx#:[id number] Intake, IV Titration 196.292 147.519 68.292 Amount Diltiazem 125 mg In 124.5 Sodium Chloride 0.9% 100 ml @ 5 MG/HR 5 mls/hr IV .Q24H [facility] Rx#:[id number] Norepinephrine 8 mg In 18.368 56.255 Sodium Chloride 0.9% 250 ml @ 0.03 MCG/KG/MIN 3. 251 mls/hr IV .Q24H [facility] Rx#:[id number] propofoL 1,000 mg In 53.424 91.264 68.292 Empty Bag 1 bag @ 15 MCG/ KG/MIN 5.04 mls/hr IV . [id number] [facility] Rx#:[id number] Tube Feeding 462 630 336 Other 90 90 60 Output: Urine 19390 Stool 200 Other: Voiding Method Indwelling Catheter Indwelling Catheter Indwelling Catheter ABP, PAP, CO, CI - Last Documented Arterial Blood Pressure 110/56 - Labs CBC & Chem 7: 08/16/24 04:28 08/16/24 04:28 Labs: Abnormal Lab Results - Last 24 Hours (Table) 08/15/24 08/16/24 08/16/24 Range/Units 19:15 00:41 04:28 WBC 10.7 H (3.8-10.6) k/uL RBC 3.15 L (3.80-5.40) m/uL Hgb 9.2 L (11.4-16.0) gm/dL Hct 29.0 L (34.0-46.0) % ABG pH (7.35-7.45) ABG pCO2 (35-45) mmHg ABG pO2 (83-108) mmHg ABG HCO3 (21-25) mmol/L ABG Total CO2 (19-24) mmol/L Hemoglobin (11.4-16.0) gm/dL Sodium (137-145) mmol/L Potassium (3.5-5.1) mmol/L Chloride (98-107) mmol/L Carbon Dioxide (22-30) mmol/L Creatinine (0.52-1.04) mg/dL Glucose (74-99) mg/dL POC Glucose (mg/dL) 137 H 126 H (70-110) mg/dL Calcium (8.4-10.2) mg/dL Alkaline Phosphatase (38-126) U/L Total Protein (6.3-8.2) g/dL Albumin (3.5-5.0) g/dL 08/16/24 08/16/24 08/16/24 Range/Units 04:28 05:45 11:46 WBC (3.8-10.6) k/uL RBC (3.80-5.40) m/uL Hgb (11.4-16.0) gm/dL Hct (34.0-46.0) % ABG pH 7.46 H (7.35-7.45) ABG pCO2 53 H (35-45) mmHg ABG pO2 71 L (83-108) mmHg ABG HCO3 38 H (21-25) mmol/L ABG Total CO2 39 H (19-24) mmol/L Hemoglobin 9.3 L (11.4-16.0) gm/dL Sodium 136 L (137-145) mmol/L Potassium 3.3 L (3.5-5.1) mmol/L Chloride 96 L (98-107) mmol/L Carbon Dioxide 37 H (22-30) mmol/L Creatinine 0.43 L (0.52-1.04) mg/dL Glucose 143 H (74-99) mg/dL POC Glucose (mg/dL) 166 H (70-110) mg/dL Calcium 8.0 L (8.4-10.2) mg/dL Alkaline Phosphatase 158 H (38-126) U/L Total Protein 4.5 L (6.3-8.2) g/dL Albumin 1.9 L (3.5-5.0) g/dL
[2024-08-16 17:25] LABS: Glucose,Whole Blood 150 mg/dL (70-110)
[2024-08-16 23:59] LABS: Glucose,Whole Blood 159 mg/dL (70-110)
[2024-08-17] MEDS: POTASSIUM BICARBONATE/CIT AC 20 MEQ TABLET.EFF NG-TUBE SCH ×4 (02:03→20:31)
[2024-08-17 05:54] LABS: Allen Test Performed? NO
[2024-08-17 05:55] LABS: ABG PCO2 56 mmHg (35-45); ABG PH 7.55 (7.35-7.45); ABG PO2 90 mmHg (83-108)
[2024-08-17 05:56] LABS: ABG HCO3 49 mmol/L (21-25)
[2024-08-17 05:57] LABS: ABG Base Excess 23.4 mmol/L; ABG TCO2 50 mmol/L (19-24)
[2024-08-17 06:00] LABS: Glucose,Whole Blood 147 mg/dL (70-110)
[2024-08-17 06:55] LABS: HCT 29.3 % (34.0-46.0); HGB 9.6 gm/dL (11.4-16.0); Hypochromasia Slight; MCH 29.9 pg (25.0-35.0); MCHC 32.8 g/dL (31.0-37.0); MCV 91.2 fL (80.0-100.0); Platelet Count 383 k/uL (150-450); RBC 3.22 m/uL (3.80-5.40); RDW 15.1 % (11.5-15.5); WBC 11.2 k/uL (3.8-10.6)
[2024-08-17 07:07] LABS: African American GFR (CKD) >90 (>60 ml/min/1.73 sqM); Blood Urea Nitrogen 15 mg/dL (7-17); Calcium 8.2 mg/dL (8.4-10.2); Chloride 85 mmol/L (98-107); Glucose 140 mg/dL (74-99); Non-African American GFR(CKD) >90 (>60 ml/min/1.73 sqM); Potassium 3.7 mmol/L (3.5-5.1); Sodium 135 mmol/L (137-145)
[2024-08-17 07:14] LABS: Anion Gap 6 mmol/L
[2024-08-17 07:20] LABS: Carbon Dioxide 44 mmol/L (22-30)
--- NOTE | 2024-08-17 08:50 | CT ---
EXAMINATION TYPE: CT chest wo con DATE OF EXAM: 08/17/2024 4:18 AM COMPARISON: CT chest 05/13/2023, chest x-ray on 1125 CLINICAL INDICATION: Female, 64 years old with history of previous abnormal chest, TECHNIQUE: Axial images were obtained at 5 mm thick sections. Reconstructed images are reviewed on [employer] computer in the coronal plane. Contrast used:0 mL of Isovue 300 , (none if empty) Oral contrast used: (none if empty) CT DLP: 359.1 mGycm, Automated exposure control for dose reduction was used. FINDINGS: Portion of the thyroid visualized is normal. Small to moderate bilateral pleural effusions are present. Consolidations are adjacent to the pleural effusions bilaterally. There is an area of increased density in the posterior left apex. Underlying mass should be consider ed. This measures approximately 4.5 x 2.4 cm. This could be a portion of consolidation from pneumonia . Endotracheal tube tip is above the myranda. No enlarged mediastinal or hilar adenopathy is evident. Scattered calcified small lymph nodes. The p resent mediastinum and hilum. The ascending aorta diameter at the level of the main pulmonary artery is 3.1 cm. The main pulmonary artery diameter at the bifurcation is 2.[address] sections are obtained through the upper abdomen. PEG tube is present IMPRESSION: 1. Patchy bilateral lung infiltrates greater on the left. 2. Small to moderate bilateral pleural effusions. 3. Dense consolidation at the left upper lung field could be related to pneumonia or fluid within the major fissure. However, consider possible mass as well and follow-up is recommended [facility], , 08/17/2024 8:48 AM
--- NOTE | 2024-08-17 08:52 | XR ---
EXAMINATION TYPE: XR chest 1V portable DATE OF EXAM: 08/17/2024 6:52 AM COMPARISON: 08/16/2024 CLINICAL INDICATION: Female, 64 years old with history of infiltrates, TECHNIQUE: XR chest 1V portable view(s) obtained. FINDINGS: The heart size is mildly prominent. The pulmonary vasculature is normal. Scattered bilateral lung infiltrates are present greater on the left. There is thickening at the left apex. Small bilateral pleural effusions present. Endotracheal tube tip is 2.4 cm above the myranda. IMPRESSION: 1. Patchy bilateral lung infiltrates. Some improvement from comparison. 2. Small bilateral pleural effusions. 3. Endotracheal tube tip above the myranda. 4. Please also see CT chest earlier same date. [facility], , 08/17/2024 8:50 AM
[2024-08-17] MEDS: FUROSEMIDE 10 MG/ML 4 ML VIAL IV SCH (08:55)
--- NOTE | 2024-08-17 10:36 | P.PN ---
Subjective Progress Note Date: 08/17/24 History of Present Illness: The patient is a 63-year-old female, status post radical neck dissection for o ral cancer and reconstructive surgery, history of PEG tube because of recurrent aspiration who was admitted to the hospital because of progressive dyspnea cough and was noted to have recurrent aspiration pneumonia. Yesterday she had an episode of atrial fibrillation with rapid ventricle response and is transferred to the ICU. She was hypotensive. She is back in sinus mechanism this morning and continues to be on IV Cardizem. She had a prior history of what appears to be DVT probably in her arm and has been anticoagulated. According to the family it is unclear if she had any arterial embolization from atrial fibrillation, she has been followed at [facility] and has been on anticoagulation since. She has no history of myocardial infarction or documented CHF. Her activity level is quite limited. She continues to be dyspneic and has a cough but she denies any chest discomfort, peripheral edema, PND or orthopnea. No evaluation of her systolic function is available to me. Her NT proBNP was elevated. She has no history of PND, orthopnea. According to her she had no r ecurrent atrial fibrillation since 6 years ago. She has no history of diabetes or hyperlipidemia. Medications: As an outpatient she is on Eliquis 5 mg twice a day, gabapentin, aspirin, Cymbalta 08/11 Patient seen and examined. Patient denies chest pain or pressure. Echocardiogram performed this morning which shows EF 65-70% with hyperdynamic function, no mitral regurgitation, [id number] tricuspid regurgitation. She was on Cardizem drip at 10 however this was decreased to 5 and is currently in sinus rhythm. She was not very symptomatic in terms of feeling her A. fib during the episode. She is tolerating metoprolol 25 twice a day. 08/12 Patient seen and examined. Patient with more respiratory distress. Her heart rate has been increased up in the low 110s consistently and then now more recently up in the 150s to 160s. She remains on Cardizem drip at 15. Lasix 20 mg IV twice a day was started today. 08/13 Patient seen and examined. Patient had increasing respiratory distress with vomiting and aspiration and eventually underwent intubation and bronchoscopy with significant secretions removed. She was being diuresed yesterday however had more hypotension around the time of intubation and therefore has been given IV fluids. She was tachycardic and had been on a Cardizem drip as well as amiodarone drip however with intubation and sedation heart rates have improved. Cardizem was stopped and patient has been on digoxin. Patient does have significant issues with aspiration in the past per family and briefly discussed this would likely have some increased risks evaluated were to consider a TALON cardioversion. At this point however heart rates better controlled mainly in the 90s to 100s. 08/14 Patient seen and examined. Remains in A. fib with heart rates in the 100-120 range. Remains on ventilator with FiO2 50% and PEEP of 8. On norepinephrine at 0.08. Remains on amiodarone drip. 08/15 Patient seen and examined. Patient converted to normal sinus rhythm. We will stop the Cardizem drip. Hold metoprolol she is in normal rhythm. She remains on ventilator with FiO2 40% and a PEEP of 6. She has been receiving IV fluids with a total of 100 mL per hour and is +3 L for each of the last 2 days. Does have some increasing generalized edema. 08/16 patient seen and examined. Patient remains intubated and sedated. She was in normal sinus rhythm yesterday however went back in A. fib with RVR and therefore was placed back on Cardizem drip currently at 5 and amiodarone drip. Respiratory status has been labile with FiO2 percent up to 60% and now down to 50%. Her IV fluids were discontinued and started on IV Lasix. 08/17 Patient seen and examined. Patient remains intubated and sedated. She is currently on amnio drip which will be continued while she is intubated. Oral amiodarone to be discontinued. Pulmonary medicine has changed Lasix to 40 mg ev char 12 hours and added Diamox 500 mg IV twice daily. Patient continues to have lower extremity edema. Patient is on anticoagulation with Eliquis. Physical Examination: VS reviewed Head: Status post radical neck dissection and reconstruction of the jaw Eyes: Sclerae nonicteric. Neck: Good carotid upstroke, no bruit, Lungs: Bilateral rhonchi at the bases Heart: Regular rate and rhythm, S1-S2, no S3, no rub. Systolic ejection murmur. Abdomen: Soft nontender, positive bowel sounds no organomegaly, PEG tube in place. Extremities: No edema, intact distal pulses. Impression: 1. Paroxysmal atrial fibrillation probably exacerbated by the lung status. Patient has been anticoagulated and had a remote history of atrial fibrillation. Back in sinus 2. Recurrent aspiration pneumonia 3. Status post PEG tube placement 4. Elevation of NT proBNP with no clear symptoms or findings on examination of heart failure, could be exacerbated by the lung status 5. Status post oral cancer and radical neck dissection and reconstructive surgery 6. Leukocytosis improving 7. History of DVT Plan: Continue patient on IV amiodarone and discontinue oral amnio. Cardizem drip was discontinued. IV Lasix currently at 40 mg every 12 hours and patient started on Diamox for 2 doses per pulmonary medicine. Does appear volume overloaded exacerbated by third spacing and protein calorie malnutrition and patient is on tube feedings. Monitor response to diuretics. Prognosis guarded. Nurse practitioner note has been reviewed, I agree with documented findings and plan of care. Patient was seen and examined. Objective - Vital Signs Vital signs: Vital Signs Temp 97.5 F L 08/17/24 04:00 Pulse 66 08/17/24 07:00 Resp 16 08/17/24 07:00 BP 142/71 08/15/24 11:15 Pulse Ox 94 L 08/17/24 07:00 FiO2 50 08/17/24 04:00 Intake & Output 08/16/24 08/17/24 08/17/24 18:59 06:59 18:59 Intake Total 7687.593 2533.153 181.591 Output Total 5200 2870 140 Balance -3620.011 -1210.847 41.591 Weight 59.8 kg Intake: IV 803 726 23 0.9 NS 33 223 20 A Line 220 53 3 Anidulafungin 100 mg In 100 Sodium Chloride 0.9% 100 ml @ 84 mls/hr IVPB DAILY @1700 [facility] Rx#:[id number] Cefepime 2 gm In Sodium 200 100 Chloride 0.9% 100 ml @ 25 mls/hr IVPB Q8HR [facility] Rx# :[id number] Vancomycin 1,000 mg In 250 350 Sodium Chloride 0.9% 250 ml @ 125 mls/hr IVPB Q8H [facility] Rx#:[id number] Intake, IV Titration 224.989 471.153 116.591 Amount Amiodarone 450 mg In 250 Dextrose 5% in Water 250 ml @ 0.5 MG/MIN 16.667 mls/hr IV .Q15H [facility] Rx#: [id number] Diltiazem 125 mg In 86.333 75 Sodium Chloride 0.9% 100 ml @ 5 MG/HR 5 mls/hr IV .Q24H [facility] Rx#:[id number] Norepinephrine 8 mg In 121.153 41.591 Sodium Chloride 0.9% 250 ml @ 0.03 MCG/KG/MIN 3. 251 mls/hr IV .Q24H [facility] Rx#:[id number] propofoL 1,000 mg In 138.656 100 Empty Bag 1 bag @ 15 MCG/ KG/MIN 5.04 mls/hr IV . [id number] [facility] Rx#:[id number] Tube Feeding 462 462 42 Other 90 Output: Urine 4800 2870 140 Stool 400 Other: Voiding Method Indwelling Catheter Indwelling Catheter ABP, PAP, CO, CI - Last Documented Arterial Blood Pressure 112/54 - Labs CBC & Chem 7: 08/17/24 06:30 08/17/24 06:30 Labs: Abnormal Lab Results - Last 24 Hours (Table) 08/16/24 08/16/24 08/16/24 Range/Units 11:46 17:24 23:57 WBC (3.8-10.6) k/uL RBC (3.80-5.40) m/uL Hgb (11.4-16.0) gm/dL Hct (34.0-46.0) % ABG pH (7.35-7.45) ABG pCO2 (35-45) mmHg ABG HCO3 (21-25) mmol/L ABG Total CO2 (19-24) mmol/L ABG O2 Saturation (94-97) % Sodium (137-145) mmol/L Potassium (3.5-5.1) mmol/L Chloride (98-107) mmol/L Carbon Dioxide (22-30) mmol/L Creatinine (0.52-1.04) mg/dL Glucose (74-99) mg/dL POC Glucose (mg/dL) 166 H 150 H 159 H (70-110) mg/dL Calcium (8.4-10.2) mg/dL 08/17/24 08/17/24 08/17/24 Range/Units 00:50 05:35 05:58 WBC (3.8-10.6) k/uL RBC (3.80-5.40) m/uL Hgb (11.4-16.0) gm/dL Hct (34.0-46.0) % ABG pH 7.55 H (7.35-7.45) ABG pCO2 56 H (35-45) mmHg ABG HCO3 49 H* (21-25) mmol/L ABG Total CO2 50 H (19-24) mmol/L ABG O2 Saturation 90.0 L (94-97) % Sodium (137-145) mmol/L Potassium 3.0 L (3.5-5.1) mmol/L Chloride (98-107) mmol/L Carbon Dioxide (22-30) mmol/L Creatinine (0.52-1.04) mg/dL Glucose (74-99) mg/dL POC Glucose (mg/dL) 147 H (70-110) mg/dL Calcium (8.4-10.2) mg/dL 08/17/24 08/17/24 Range/Units 06:30 06:30 WBC 11.2 H (3.8-10.6) k/uL RBC 3.22 L (3.80-5.40) m/uL Hgb 9.6 L (11.4-16.0) gm/dL Hct 29.3 L (34.0-46.0) % ABG pH (7.35-7.45) ABG pCO2 (35-45) mmHg ABG HCO3 (21-25) mmol/L ABG Total CO2 (19-24) mmol/L ABG O2 Saturation (94-97) % Sodium 135 L (137-145) mmol/L Potassium (3.5-5.1) mmol/L Chloride 85 L (98-107) mmol/L Carbon Dioxide 44 H* (22-30) mmol/L Creatinine 0.50 L (0.52-1.04) mg/dL Glucose 140 H (74-99) mg/dL POC Glucose (mg/dL) (70-110) mg/dL Calcium 8.2 L (8.4-10.2) mg/dL Microbiology - Last 24 Hours (Table) 08/11/24 12:31 Blood Culture - Final Blood
[2024-08-17] MEDS: VANCOMYCIN TROUGH DUE 1 EACH MISC MISCELLANE ONE (11:20)
[2024-08-17 11:38] LABS: Glucose,Whole Blood 153 mg/dL (70-110)
--- NOTE | 2024-08-17 11:51 | P.PN ---
Subjective Progress Note Date: 08/17/24 08/11/2023, the patient is being seen for a follow-up. Is a 63-year-old female patient with past medical history of oral cancer and previous radical neck dissection followed by radiation therapy and reconstructive surgery and the patient suffers from chronic dysphagia and the patient has PEG tube. The pat ient also has previous history of DVT/pulmonary embolism maintained on anticoagulation. She has history of atrial fibrillation, hypothyroidism and seizure disorders. For now, the patient is in the intensive care unit for an acute hypoxic respiratory failure. The patient is currently on Airvo at 60 L with an FiO2 of 90% %. Chest x-ray shows bilateral lower lobe consolidation and possibly some small effusions. Antibiotic coverage is with IV Eraxis, vancomycin and Rocephin. Sputum samples collected on 08/06/2024 was consistent with MRSA, Morganella morganii and strep agalactiae. The patient had developed significant leukocytosis which is downtrending and the white cell count from yesterday was down to 16. Patient also developed atrial fibrillation with rapid ventricular response over the past 24 to 48 hours. The patient based on that was started on Cardizem drip and she is already anticoagulated with Eliquis. She remains on Cardizem at 10 mg an hour. She is also on metoprolol 25 mg p.o. twice daily for rate control. The patient is also on oxygen and Airvo settings this morning is 6 L with an FiO2 of 90%. The patient has a J-tube for feeding receiving Jevity 1.5 at the rate of 40 cc an hour. The J-tube was replaced yesterday. This was done by general surgery. CAT scan of the abdomen done on 08/09/2024 showed that the jejunostomy tube was grossly intact. Nevertheless, it there was evidence of lower lobe consolidations bilaterally worse on the left. 08/12/2023, the patient is being seen for a follow-up. Condition is gradually compensated over the past 24 hours and the patient has become more hypoxic related to her pneumonia. Noted the patient was on high flow oxygen, Airvo 60 L with an FiO2 of 90%. Subsequently, she was given 100% nonrebreather facemask and the patient continued to have episodes of desaturation. At a later stage, overnight, the patient was placed on a BiPAP and currently she is on a BiPAP pressure of 15 over 10 cm of water with an FiO2 of 100%. Initially, this morning, she was still desaturating and her blood gas was obtained which showed a pH of 7.33 with a pCO2 of 74 and pO2 of 49. I attended on this patient immediately. I wanted to intubate the patient. However, I do acknowledge that this is going to be an extremely difficult intubation as the patient does not have any ability to open up her mouth due to chronic scarring in her neck muscles and scarring of her jaw and her neck is significantly scarred up and stiff related to previous radiation therapy. While adjusting the BiPAP mask, we improved the leaks and the pulse ox improved currently she is pulse oxing in order of 91 to 93%. Reviewed the chest x-ray from today shows diffuse bilateral airspace disease consistent with pneumonia. No evidence of any pneumothorax. The patient continues to have a congested cough. No significant sputum production. Despite his ongoing hypoxemia, she is breathing comfortably. Her current respiratory rate is in the mid 20s. She is still awake and communicating. No fever. No hemodynamic instability. She remains in atrial fibrillation. Antibiotic coverage remains unchanged and the patient remains on a combination of Rocephin and vancomycin and Eraxis. The fluid balance has been negative over the past 24 hours. The white cell count is at 18.10.8 and this is. Calcium level 6. The patient remains on DuoNeb nebulized treatments. In terms of her ongoing atrial fibrillation, she is on Cardizem drip at 15 mg an hour. She remains on anticoagulation with Eliquis. She is also on metoprololAt a dose of 25 mg p.o. twice a day. No hypotension. Hemodynamically stable. IV fluids are currently at KVO. On 08/13/2024, the patient is being seen for a follow-up. As mentioned, the patient was intubated yesterday and placed on mechanical ventilation due to bilateral pneumonia that was further complicated by an episode of aspiration. This morning, the patient is sedated and the patient is calm and comfortable. She is on assist-control mode of mechanical ventilation. He is on a rate of 16 with a tidal volume of 350 and FiO2 of 50% with a PEEP of 8. The blood gas showed a pH of 7.45 with a pCO2 of 54 and pO2 of 91. Chest x-ray is consistent with diffuse bilateral pulmonary filtrates/pneumonia. Bronchoscopy was also done and another bronchial aspirate was obtained, pending further cultures. She is calm and comfortable on propofol running at 35 mcg/kg/min. Noted post intubation, the patient became hypotensive. Received a liter bolus and currently she is on normal saline at rate of 100 cc an hour. Norepinephrine is running at 0.15 mcg/kg/min. She remains in atrial fibrillation. She is on amiodarone drip at 0.5 mg/min and she is also on Cardizem drip. Slightly tachycardic. Remains on Rocephin and vancomycin and Rocephin will be switched to Zosyn. Lasix will also to be discontinued. Enteral feeding is to be started today. The white cell count of 21 with a hemoglobin 10.3 and a platelet count of 427. Sodium is at 138, BUN 13 creatinine 0.4 and a potassium level is at 3.2 with a bicarb level of 37 On 08/14/2024, the patient is being seen for a follow-up. The patient remains intubated on the mechanical ventilator. Earlier this morning, the patient is on a 30 mcg of propofol and the patient is adequately sedated. She remains on the mechanical ventilator assist-control mode with rate of 16, tidal volume of 350, FiO2 of 50% with a PEEP of 8. Blood gases show a pH of 7.41 with a pCO2 of 51 and pO2 of 82. No significant respiratory secretions. The sputum cultures and the bronchial aspirate this was collected and sent for culture showed presumptive Staph aureus and gram-negative bacillus and the patient remains on broad-spectrum antibiotics and the patient remains on a combination of Zosyn and vancomycin. Chest x-ray findings are essentially unchanged and the patient has diffuse bilateral patchy pulmonary infiltrates consistent with pneumonia. Meanwhile, the patient is on normal saline at rate of 100 cc an hour. Hemodynamically, she still requiring pressors and the patient is on norepinephrine at 0.06 mcg/kg/min. Earlier this morning, the patient was still tachycardic while being in atrial fibrillation. She was started on Cardizem drip at 5 mg an hour by cardiology. She remains on amiodarone 0.5 mg/min. The patient was also given metoprolol 25 mg p.o. twice daily and the patient remains on anticoagulation with Eliquis. She is receiving enteral feeding for nutritional support with vital high-protein at rate of 10 cc an hour. The white cell count is 14.3 with hemoglobin 9.5 and a platelet count of 375. Sodium is at 137, potassium is at 3.6, BUN is 8. The patient with a creatinine of 0.4 On 08/15/2024, the patient is being seen for a follow-up. On today's evaluation, the patient extremity, comfortable on propofol running at 30 mcg/kg/min. Chest x-ray shows stable bilateral pulmonary filtrates, essentially unchanged. The bronchial lavage that was obtained earlier was positive for MRSA and Morganella morganii and the patient remains on a combination of Zosyn and vancomycin. The patient remains on assist-control mode mechanical ventilation. The patient's current setting includes on assist-control mode with rate of 18, tidal volume of 350, FiO2 40% with a PEEP of 6. Blood gas showed a pH of 7.41 with a pCO2 of 52 and pO2 of 107 and there has been some improvement in the oxygenation. Fluid balance is +3.8 L. The patient remains on low-dose dose of norepinephrine running at 0.02 mcg/kg/min. IV fluids are in the form of normal saline at rate of 100 cc an hour and the patient's cardiac rhythm is converted into sinus. The patient is currently on oral amiodarone. The patient is also on vital high- protein at rate of 42 cc an hour and she is tolerating the enteral feeding. The white cell count of 12.7 with a hemoglobin 9.2 and a platelet count of 377. BUN is 9 with a creatinine of 0.4 and sodium levels at 138 with potassium level of 3.6. No other significant events overnight. On 08/16/2024, the patient is being seen for a follow-up. Remains sedated on propofol running at 30 mcg/kg/min. Chest x-ray still showing extensive bilateral consolidation and the previous bronchoalveolar lavage was consistent with Morganella morganii and MRSA. Remains on Zosyn and vancomycin. Remains on assist-control mode of mechanical ventilation at rate of 16, tidal volume of 350, FiO2 of 60% with a PEEP of 5. The blood gases from today shows a pH of 7.46 with a pCO2 of 53 and pO2 of 71. Fluid balance is positive around 3.8 L o jhonatan the past 24 hours. IV fluids are currently at KVO. She remains on low-dose norepinephrine running at 0.08 mcg/kg/min. Overnight, the patient developed again atrial fibrillation with RVR. She was started on Cardizem drip at 5 mg an hour she is also back on IV amiodarone 0.5 mg/min. Vital high-protein for enteral feeding at rate of 42 cc an hour. The white cell count of 10.7 with a hemoglobin 9.2. Sodium is at 136, BUN is at 9 with a creatinine of 0.3 and a potassium level is at 3.3, needs to be replaced. No other significant events overnight. On 08/17/2024, the patient remains on the mechanical ventilator. This morning, the patient is on propofol for sedation and she is calm and comfortable. At the same time, she is on assist-control mode of mechanical ventilation at rate of 1 6, tidal volume of 350, FiO2 of 50% with a PEEP of 5. Blood gas showed a pH of 7.55 with a pCO2 of 56 and pO2 of 90. Chest x-ray findings are essentially unchanged. CAT scan of the chest was obtained this morning and it shows bilateral consolidation left more than right consistent with pneumonia and there is also small to moderate-sized pleural effusion. The patient remains on a combination of cefepime and vancomycin and Eraxis. Afebrile. Hemodynamically, she remains on low-dose norepinephrine running at 0.06 mcg/kg/min. Cardiac rhythm is converted to sinus and the patient remains on Cardizem drip at 5 mg an hour and the patient is also on amiodarone drip. The patient was started on diuretics. She is currently on a combination of Lasix and Zaroxolyn. She was receiving IV Lasix 40 mg IV every 8 hours and Zaroxolyn 5 mg p.o. twice a day. Fluid balance is -4.8 L over the past 24 hours. She remains on vital high- protein at rate of 40 cc an hour. The white cell count is 11 with a hemoglobin 9.6 and a platelet count of 383. Sodium is at 135, potassium is at 3.7, serum bicarb is at 44, BUN is 15 with a creatinine of 0.5. Calcium level is at 8.2. Objective - Vital Signs Vital signs: Vital Signs Temp 97.5 F L 08/17/24 04:00 Pulse 66 08/17/24 07:00 Resp 16 08/17/24 07:00 BP 142/71 08/15/24 11:15 Pulse Ox 94 L 08/17/24 07:00 FiO2 50 08/17/24 04:00 Intake & Output 08/16/24 08/17/24 08/17/24 18:59 06:59 18:59 Intake Total 9201.289 8575.153 106.591 Output Total 5200 2870 140 Balance -3620.011 -1210.847 -33.409 Weight 59.8 kg Intake: IV 803 726 23 0.9 NS 33 223 20 A Line 220 53 3 Anidulafungin 100 mg In 100 Sodium Chloride 0.9% 100 ml @ 84 mls/hr IVPB DAILY @1700 [facility] Rx#:[id number] Cefepime 2 gm In Sodium 200 100 Chloride 0.9% 100 ml @ 25 mls/hr IVPB Q8HR [facility] Rx# :[id number] Vancomycin 1,000 mg In 250 350 Sodium Chloride 0.9% 250 ml @ 125 mls/hr IVPB Q8H [facility] Rx#:[id number] Intake, IV Titration 224.989 471.153 41.591 Amount Amiodarone 450 mg In 250 Dextrose 5% in Water 250 ml @ 0.5 MG/MIN 16.667 mls/hr IV .Q15H [facility] Rx#: [id number] Diltiazem 125 mg In 86.333 Sodium Chloride 0.9% 100 ml @ 5 MG/HR 5 mls/hr IV .Q24H [facility] Rx#:[id number] Norepinephrine 8 mg In 121.153 41.591 Sodium Chloride 0.9% 250 ml @ 0.03 MCG/KG/MIN 3. 251 mls/hr IV .Q24H [facility] Rx#:[id number] propofoL 1,000 mg In 138.656 100 Empty Bag 1 bag @ 15 MCG/ KG/MIN 5.04 mls/hr IV . [id number] [facility] Rx#:[id number] Tube Feeding 462 462 42 Other 90 Output: Urine 4800 2870 140 Stool 400 Other: Voiding Method Indwelling Catheter Indwelling Catheter ABP, PAP, CO, CI - Last Documented Arterial Blood Pressure 112/54 - Exam GENERAL EXAM: Alert, 63-year-old female, sedated on propofol,, comfortable, orotracheal tube is in good position. HEAD: Normocephalic and atraumatic EYES: Normal reaction of pupils, equal size. NOSE: Clear with pink turbinates. THROAT: No erythema or exudates. Edentulous, with previous reconstructive surgery. Unable to open her mouth as the patient has jaw dysfunction and scarring in her neck muscles. NECK: No masses, no JVD. Significant neck deformity related to radiation- induced scarring and previous neck surgery. CHEST: No chest wall deformity. LUNGS: Equal air entry with bilateral rhonchi and wheezing with left lower lobe inspiratory crackles. CVS: S1 and S2 normal with no audible murmur, irregular rhythm. No extra heart sounds ABDOMEN: No hepatosplenomegaly, active bowel sounds, no guarding or rigidity. There are two percutaneous feeding tubes. SPINE: No scoliosis or deformity SKIN: No rashes CENTRAL NERVOUS SYSTEM: Sedated, calm and comfortable EXTREMITIES: There is no peripheral edema, clubbing, or cyanosis. Peripheral pulses are intact. - Labs CBC & Chem 7: 08/17/24 06:30 08/17/24 06:30 Labs: Abnormal Lab Results - Last 24 Hours (Table) 08/16/24 08/16/24 08/16/24 Range/Units 11:46 17:24 23:57 WBC (3.8-10.6) k/uL RBC (3.80-5.40) m/uL Hgb (11.4-16.0) gm/dL Hct (34.0-46.0) % ABG pH (7.35-7.45) ABG pCO2 (35-45) mmHg ABG HCO3 (21-25) mmol/L ABG Total CO2 (19-24) mmol/L ABG O2 Saturation (94-97) % Sodium (137-145) mmol/L Potassium (3.5-5.1) mmol/L Chloride (98-107) mmol/L Carbon Dioxide (22-30) mmol/L Creatinine (0.52-1.04) mg/dL Glucose (74-99) mg/dL POC Glucose (mg/dL) 166 H 150 H 159 H (70-110) mg/dL Calcium (8.4-10.2) mg/dL 08/17/24 08/17/24 08/17/24 Range/Units 00:50 05:35 05:58 WBC (3.8-10.6) k/uL RBC (3.80-5.40) m/uL Hgb (11.4-16.0) gm/dL Hct (34.0-46.0) % ABG pH 7.55 H (7.35-7.45) ABG pCO2 56 H (35-45) mmHg ABG HCO3 49 H* (21-25) mmol/L ABG Total CO2 50 H (19-24) mmol/L ABG O2 Saturation 90.0 L (94-97) % Sodium (137-145) mmol/L Potassium 3.0 L (3.5-5.1) mmol/L Chloride (98-107) mmol/L Carbon Dioxide (22-30) mmol/L Creatinine (0.52-1.04) mg/dL Glucose (74-99) mg/dL POC Glucose (mg/dL) 147 H (70-110) mg/dL Calcium (8.4-10.2) mg/dL 08/17/24 08/17/24 Range/Units 06:30 06:30 WBC 11.2 H (3.8-10.6) k/uL RBC 3.22 L (3.80-5.40) m/uL Hgb 9.6 L (11.4-16.0) gm/dL Hct 29.3 L (34.0-46.0) % ABG pH (7.35-7.45) ABG pCO2 (35-45) mmHg ABG HCO3 (21-25) mmol/L ABG Total CO2 (19-24) mmol/L ABG O2 Saturation (94-97) % Sodium 135 L (137-145) mmol/L Potassium (3.5-5.1) mmol/L Chloride 85 L (98-107) mmol/L Carbon Dioxide 44 H* (22-30) mmol/L Creatinine 0.50 L (0.52-1.04) mg/dL Glucose 140 H (74-99) mg/dL POC Glucose (mg/dL) (70-110) mg/dL Calcium 8.2 L (8.4-10.2) mg/dL Microbiology - Last 24 Hours (Table) 08/11/24 12:31 Blood Culture - Final Blood Assessment and Plan Plan: Acute hypoxic respiratory failure secondary to bilateral pneumonia with subsequent aspiration. The patient is currently intubated on mechanical ventilator. The patient was intubated on 08/12/2024. Remains on broad-spectrum antibiotics and the patient remains on a combination of Zosyn and vancomycin. The patient is also on Eraxis. Bilateral lower lobe pneumonia, bacterial, likely related to aspiration, sputum sample obtained 08/01 and again on August 06, 2024 positive for MRSA, Morganella, and group B strep and Rosa. Failed outpatient treatment. The patient's pneumonia is polymicrobial. Noted the patient failed Airvo and BiPAP treatment for respiratory support and the patient had to be intubated on 08/12/2024. She did encounter another bout of aspiration in the intensive care unit. Repeat bronchoscopy endobronchial aspirate was obtained for culturing purposes. The bronchial aspirate and lavage is growing Staph aureus and Morganella morganii. CAT scan of the chest from 08/17/2024 confirmed the presence of consolidation bilaterally left more than right and the patient has small to moderate-sized bilateral pleural effusions. Sepsis with secondary hypotension, currently on norepinephrine infusion, low- dose at 0.0 6 mcg/kg/min and the patient is a significant positive fluid balance, the patient was started on diuretics and the patient is producing excellent urine output. Acute leukocytosis, secondary to above, improving Atrial fibrillation with a rapid ventricular response, paroxysmal and overnight the patient had A-fib RVR, currently on Cardizem drip at 5 mg an hour and amiodarone infusion at maintenance of 0.5 mg/min. Cardiac rhythm is back to sinus on today's evaluation. History of recurrent aspiration pneumonia and MRSA pneumonia. 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 Nothing by mouth, the patient receiving enteral feeding for nutritional support via PEG tube. History of radiation pneumonitis Xerostomia History of DVT/PE, anticoagulated on Eliquis History of hypothyroidism History of seizure disorder Plan: Continue vent support, no changes for today Keep the patient sedated on propofol IV fluids to KVO Continue IV Lasix to 40 mg every 12 hours Fluid balance is negative Continue diuresis Give Diamox 500 mg IV x 2 doses Continue Zosyn and vancomycin and Eraxis Cultures from the bronchial lavage was noted and is positive for Morganella and MRSA Continue amiodarone drip for rate control Cardizem drip at 5 mg an hour Metoprolol 25 mg p.o. twice a day Wean off norepinephrine and discontinue Monitor the heart rate Anticoagulated with Eliquis Continue bronchodilators Enteral tube feedings, the G-tube has been replaced. Condition is obviously critical. Will continue to follow make further recommendations based on progress. Evaluation was done more than 30 minutes. Case was discussed at length with the and the daughter.
[2024-08-17] MEDS: AMIODARONE 450 MG in DEXTROSE 5% IN WATER 250 ML IV SCH (12:39)
--- NOTE | 2024-08-17 13:08 | P.PN ---
Subjective Progress Note Date: 08/17/24 This is a pleasant 63 years old female with past medical history of multiple medical problems. Patient called her PCP office of Dr. Anderson and talked to his nurse practitioner Lynnette from she sees in the office complaining from little shortness of breath for the last 4 to 5 days with some cough and phlegm Associated with left lateral chest pain about 7/10 that is worse with coughing and deep breath. Her nurse practitioner Lynnette asked her to get sputum sample and resulted back as MRSA so she got a call from the office to head to the emergency room Currently she is endorsing the same symptoms as above However she denies any specific GI/ symptoms no headache dizziness weakness or numbness She quit smoking years ago with no alcohol or illicit drugs as well She is not on oxygen at home She has a known history of mouth cancer s/p left-sided jaw replacement She does not eat but uses a PEG tube for feeding 2 weeks ago she saw her oncologist and Dr. gastelum her technical account manager and she was doing fine Patient has afebrile in the emergency room She was saturating 90s on 4 L oxygen via nasal cannula Blood pressure is soft On admission she has leukocytosis of 28,000. Will BMP and LFTs were unremarkable as well as INR proBNP is 248 Chest x-ray showing left lower lobe infiltrate suspicious for pneumonia Patient was started on IV vancomycin and Zosyn and normal saline with pulmonary and ID team consult 08/07/2023 Patient sitting up in bed looks similar to yesterday, complaining from some pain in her left side of the chest but it looks controlled and patient is not in distress No significant dyspnea or tachypnea, she can go to the bathroom by herself with no exertional dyspnea However her oxygen requirement increased from 4 L up to 10 L today. Blood pressure is borderline and patient says usually her blood pressure on the low side Repeat chest x-ray showing similar left lower lobe infiltrate. Her legs are swollen we will going to check ultrasound of the leg given risk factors although she does not have much symptoms Patient remains on IV fluids normal saline at 130 and IV antibiotics with IV vancomycin and ceftriaxone Patient already on Cymbalta, she is asking to start her BuSpar but she is not sure about the dose, is going to be resumed Infection Control Coordinator consult is on for tube feeding 08/08 Patient is mildly tachypneic, not using accessory muscles of breathing, her oxygen requirement increased since yesterday to 10 to 11 L/min She has bilateral leg swelling, mild ultrasound of the leg is negative for DVT. Further workup including sputum culture and blood culture are pending. Blood pressure improved Remains on IV vancomycin and ceftriaxone IV fluid was lower dose 130 down to 75 mL/h Pro- Calcitonin is negative 08/09. Patient seen and examined. Currently on 11 L of oxygen. Patient had her jejunostomy tube not functioning, surgery consulted, they order CT abdominal p jasmina 08/10. Patient seen and examined. Patient went into A-fib with RVR overnight, had worsening respiratory status. Patient had rapid sponsor called and was transferred to ICU. Patient currently on Airvo. Gets short of breath on exertion 08/11 Patient respiratory status got worse and she was moved to the ICU. Currently she is awake alert but requires 60 L/min with 90% of FiO2 Abdomen soft, PEG tube is in place No headache or dizziness WBC is trending down to 16,000, hemoglobin down to two 9.7 Pro- Calcitonin increased to 1.6 and 1 extra dose of MiraLAX is added to her antibiotic Ejection fraction is 65 to 70% CT of the abdomen pelvis showing nonobstructive lesion Patient currently covered with IV vancomycin and ceftriaxone and Eraxis, also patient developed A-fib with RVR and followed by electronic instrument trades worker, started on Eliquis at metoprolol also patient continued on aspirin 08/12 Patient currently remains in the ICU, her breathing function gets worse overnight, yesterday she had to be placed on nonrebreather, and Worsened currently and she was placed on BiPAP in the morning with a setting of 15/10 and FiO2 of 100% Patient herself is awake and alert, she says that her breathing is hard but similar to yesterday. She is saturating about 92% on this current BiPAP setting. She denies chest pain She still mildly tachycardic with heart rate 126 with A-fib and RVR, currently she has been followed by electronic instrument trades worker and getting Cardizem drip at 15 mg/h. Discussed the case with pulmonary service regarding her worsening send respiratory symptoms. Patient may require intubation patient is agreeable however because of her mild surgery will be very difficult situation. Therefore they will try to give her some more time before needed intervention. Repeat chest x-ray from this morning showing worsening pneumonia Yesterday pro- Calcitonin was worsened and her antibiotics were updated per ID team, currently on IV vancomycin, ceftriaxone and Eraxis. Also she is continued on Eliquis for new diagnosis of A-fib. Also she is on aspirin 81 mg, oral 08/13 Yesterday night patient still complaining from respiratory distress had to be intubated and currently she is on mechanical ventilation. Her blood pressure is stable and she is afebrile. Labs showing worsening leukocytosis to 21,000, hemoglobin slightly less than 10.3 Patient remains on broad-spectrum antibiotics with IV vancomycin,Ceftriaxone and Eraxis She is also on amiodarone drip, Eliquis 5 mg twice daily and aspirin 81 mg. 08/14 Patient remains in the ICU intubated and sedated. Her FiO2 today was 50% She is afebrile and rest of vitals look stable Leukocytosis is also improving down to 14,000, hemoglobin stable at 9.5. Patient currently covered with Eliquis and metoprolol and digoxin x 1 per Cardi ologist She remains on IV vancomycin, Zosyn and Eraxis Abdominal wound is closed with no drains Rios catheter in place 08/15. Patient seen and examined. Currently intubated. Family at the bedside, questions answered 08/16. Patient seen and examined. Blood work done this morning showed WBC 10.7, hemoglobin 9.2, sodium 130s, potassium 3.3 BUN 9, creatinine 0.43. Chest x-ray done this morning showed worsening infiltrates. Lasix dose has been changed to 40 mg 3 times daily. . Patient seen and examined. Blood work done this morning showed WBC 11.2, hemoglobin 9.6, platelet count 383, sodium 137, potassium 3.7, BUN 15, creatinine 0.50. Patient is -1993 mL over last 24 hours. Patient has been switched to IV Lasix twice a day with Diamox. REVIEW OF SYSTEMS: Review of system cannot be obtained as patient is intubated PHYSICAL EXAMINATION: GENERAL: The patient is intubated HEENT: Pupils are round and equally reacting to light. EOMI. No scleral icterus. No conjunctival pallor. Normocephalic, atraumatic. No pharyngeal erythema. No thyromegaly. CARDIOVASCULAR: S1 and S2 present. No murmurs, rubs, or gallops. PULMONARY coarse breath sounds bilaterally, bilateral crackles audible ABDOMEN: Soft, nontender, nondistended, normoactive bowel sounds. No palpable organomegaly. Jejunostomy tube seen MUSCULOSKELETAL: No joint swelling or deformity. EXTREMITIES: No cyanosis, clubbing, 1+ pitting edema of lower extremities bilaterally NEUROLOGICAL: Intubated SKIN: No rashes. Assessment and plan Bilateral pneumonia putum sample obtained 08/01 and again on August 06, 2024 positive for MRSA, Morganella, and group B strep and Rosa Sepsis secondary to above Acute hypoxic respiratory failure secondary to above Mild calorie protein malnutrition History of mouth cancer , currently she uses PEG tube for nutrition COPD, not in acute acute issue History of pneumonia not on anticoagulation History of seizure Monitor vital signs Monitor CBC Monitor CMP Continue telemetry monitoring Aggressive bronchopulmonary hygiene Continue vent management Follow-up on blood cultures Continue breathing treatment Continue amiodarone, Lopressor, Eliquis Strict I's and O's, daily weights, Lasix 40 mg every 12, Diamox added Continue vancomycin, cefepime, Eraxis Continue tube feeding Continue breathing treatments ID following Pulmonology following Labs and medication were reviewed.. Continue same treatment. Continue with symptomatic treatment. Resume home medication. Monitor labs and vitals. DVT and GI prophylaxis. Further recommendations as per clinical course of the patient Dictation was produced using [employer] dictation software. please excuse any grammatical, word or spelling errors. Objective - Vital Signs Vital signs: Vital Signs Temp 97.5 F L 08/17/24 04:00 Pulse 66 08/17/24 07:00 Resp 16 08/17/24 07:00 BP 142/71 08/15/24 11:15 Pulse Ox 94 L 08/17/24 07:00 FiO2 50 08/17/24 04:00 Intake & Output 08/16/24 08/17/24 08/17/24 18:59 06:59 18:59 Intake Total 8160.310 7292.153 106.591 Output Total 5200 2870 140 Balance -3620.011 -1210.847 -33.409 Weight 59.8 kg Intake: IV 803 726 23 0.9 NS 33 223 20 A Line 220 53 3 Anidulafungin 100 mg In 100 Sodium Chloride 0.9% 100 ml @ 84 mls/hr IVPB DAILY @1700 [facility] Rx#:[id number] Cefepime 2 gm In Sodium 200 100 Chloride 0.9% 100 ml @ 25 mls/hr IVPB Q8HR [facility] Rx# :[id number] Vancomycin 1,000 mg In 250 350 Sodium Chloride 0.9% 250 ml @ 125 mls/hr IVPB Q8H [facility] Rx#:[id number] Intake, IV Titration 224.989 471.153 41.591 Amount Amiodarone 450 mg In 250 Dextrose 5% in Water 250 ml @ 0.5 MG/MIN 16.667 mls/hr IV .Q15H [facility] Rx#: [id number] Diltiazem 125 mg In 86.333 Sodium Chloride 0.9% 100 ml @ 5 MG/HR 5 mls/hr IV .Q24H [facility] Rx#:[id number] Norepinephrine 8 mg In 121.153 41.591 Sodium Chloride 0.9% 250 ml @ 0.03 MCG/KG/MIN 3. 251 mls/hr IV .Q24H [facility] Rx#:[id number] propofoL 1,000 mg In 138.656 100 Empty Bag 1 bag @ 15 MCG/ KG/MIN 5.04 mls/hr IV . [id number] [facility] Rx#:[id number] Tube Feeding 462 462 42 Other 90 Output: Urine 4800 2870 140 Stool 400 Other: Voiding Method Indwelling Catheter Indwelling Catheter ABP, PAP, CO, CI - Last Documented Arterial Blood Pressure 112/54 - Labs CBC & Chem 7: 08/17/24 06:30 08/17/24 11:25 Labs: Abnormal Lab Results - Last 24 Hours (Table) 08/16/24 08/16/24 08/16/24 Range/Units 11:46 17:24 23:57 WBC (3.8-10.6) k/uL RBC (3.80-5.40) m/uL Hgb (11.4-16.0) gm/dL Hct (34.0-46.0) % ABG pH (7.35-7.45) ABG pCO2 (35-45) mmHg ABG HCO3 (21-25) mmol/L ABG Total CO2 (19-24) mmol/L ABG O2 Saturation (94-97) % Sodium (137-145) mmol/L Potassium (3.5-5.1) mmol/L Chloride (98-107) mmol/L Carbon Dioxide (22-30) mmol/L Creatinine (0.52-1.04) mg/dL Glucose (74-99) mg/dL POC Glucose (mg/dL) 166 H 150 H 159 H (70-110) mg/dL Calcium (8.4-10.2) mg/dL 08/17/24 08/17/24 08/17/24 Range/Units 00:50 05:35 05:58 WBC (3.8-10.6) k/uL RBC (3.80-5.40) m/uL Hgb (11.4-16.0) gm/dL Hct (34.0-46.0) % ABG pH 7.55 H (7.35-7.45) ABG pCO2 56 H (35-45) mmHg ABG HCO3 49 H* (21-25) mmol/L ABG Total CO2 50 H (19-24) mmol/L ABG O2 Saturation 90.0 L (94-97) % Sodium (137-145) mmol/L Potassium 3.0 L (3.5-5.1) mmol/L Chloride (98-107) mmol/L Carbon Dioxide (22-30) mmol/L Creatinine (0.52-1.04) mg/dL Glucose (74-99) mg/dL POC Glucose (mg/dL) 147 H (70-110) mg/dL Calcium (8.4-10.2) mg/dL 08/17/24 08/17/24 Range/Units 06:30 06:30 WBC 11.2 H (3.8-10.6) k/uL RBC 3.22 L (3.80-5.40) m/uL Hgb 9.6 L (11.4-16.0) gm/dL Hct 29.3 L (34.0-46.0) % ABG pH (7.35-7.45) ABG pCO2 (35-45) mmHg ABG HCO3 (21-25) mmol/L ABG Total CO2 (19-24) mmol/L ABG O2 Saturation (94-97) % Sodium 135 L (137-145) mmol/L Potassium (3.5-5.1) mmol/L Chloride 85 L (98-107) mmol/L Carbon Dioxide 44 H* (22-30) mmol/L Creatinine 0.50 L (0.52-1.04) mg/dL Glucose 140 H (74-99) mg/dL POC Glucose (mg/dL) (70-110) mg/dL Calcium 8.2 L (8.4-10.2) mg/dL Microbiology - Last 24 Hours (Table) 08/11/24 12:31 Blood Culture - Final Blood
--- NOTE | 2024-08-17 13:14 | P.PN ---
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 Patient chest x-ray right lower lobe infiltrate. On today's evaluation that is 08/17/2024, Patient is afebrile this morning patient remains to be debated on the vent FiO2 is currently at 50% no significant purulent secretion through the ET patient required low-dose pressor support noticed to have some purulent drainage around her J-tube site but has been cultured did have diarrhea but no worsening output reported by the nursing staff. Patient white count is 11.2, creatinine is 0.50 Vanco trough is 25.2 Objective - Vital Signs Vital signs: Vital Signs Temp 96.9 F L 08/17/24 12:00 Pulse 76 08/17/24 13:00 Resp 16 08/17/24 13:00 BP 142/71 08/15/24 11:15 Pulse Ox 96 08/17/24 13:00 FiO2 50 08/17/24 13:00 Intake & Output 08/16/24 08/17/24 08/17/24 18:59 06:59 18:59 Intake Total 9839.500 7362.153 999.621 Output Total 5200 2870 2490 Balance -3620.011 -1210.847 -1490.379 Weight 59.8 kg Intake: IV 803 726 411 0.9 NS 33 223 140 A Line 220 53 21 Anidulafungin 100 mg In 100 Sodium Chloride 0.9% 100 ml @ 84 mls/hr IVPB DAILY @1700 [facility] Rx#:[id number] Cefepime 2 gm In Sodium 200 100 Chloride 0.9% 100 ml @ 25 mls/hr IVPB Q8HR [facility] Rx# :[id number] Vancomycin 1,000 mg In 250 350 250 Sodium Chloride 0.9% 250 ml @ 125 mls/hr IVPB Q8H [facility] Rx#:[id number] Intake, IV Titration 224.989 471.153 234.621 Amount Amiodarone 450 mg In 250 Dextrose 5% in Water 250 ml @ 0.5 MG/MIN 16.667 mls/hr IV .Q15H [facility] Rx#: [id number] Diltiazem 125 mg In 86.333 75 Sodium Chloride 0.9% 100 ml @ 5 MG/HR 5 mls/hr IV .Q24H [facility] Rx#:[id number] Norepinephrine 8 mg In 121.153 78.869 Sodium Chloride 0.9% 250 ml @ 0.03 MCG/KG/MIN 3. 251 mls/hr IV .Q24H [facility] Rx#:[id number] propofoL 1,000 mg In 138.656 100 80.752 Empty Bag 1 bag @ 15 MCG/ KG/MIN 5.04 mls/hr IV . [id number] [facility] Rx#:[id number] Tube Feeding 462 462 294 Other 90 60 Output: Urine 4800 2870 2490 Stool 400 Other: Voiding Method Indwelling Catheter Indwelling Catheter ABP, PAP, CO, CI - Last Documented Arterial Blood Pressure 131/63 - Exam GENERAL DESCRIPTION: Elderly female intubated on the vent RESPIRATORY SYSTEM: Unlabored breathing , decreased breath sounds at bases HEART: S1 S2 regular rate and rhythm , ABDOMEN: Soft , no tenderness minimal drainage around the G-tube site EXTREMITIES: No edema feet - Labs CBC & Chem 7: 08/17/24 06:30 08/17/24 11:25 Labs: Abnormal Lab Results - Last 24 Hours (Table) 08/16/24 08/16/24 08/17/24 Range/Units 17:24 23:57 00:50 WBC (3.8-10.6) k/uL RBC (3.80-5.40) m/uL Hgb (11.4-16.0) gm/dL Hct (34.0-46.0) % ABG pH (7.35-7.45) ABG pCO2 (35-45) mmHg ABG HCO3 (21-25) mmol/L ABG Total CO2 (19-24) mmol/L ABG O2 Saturation (94-97) % Sodium (137-145) mmol/L Potassium 3.0 L (3.5-5.1) mmol/L Chloride (98-107) mmol/L Carbon Dioxide (22-30) mmol/L Creatinine (0.52-1.04) mg/dL Glucose (74-99) mg/dL POC Glucose (mg/dL) 150 H 159 H (70-110) mg/dL Calcium (8.4-10.2) mg/dL 08/17/24 08/17/24 08/17/24 Range/Units 05:35 05:58 06:30 WBC 11.2 H (3.8-10.6) k/uL RBC 3.22 L (3.80-5.40) m/uL Hgb 9.6 L (11.4-16.0) gm/dL Hct 29.3 L (34.0-46.0) % ABG pH 7.55 H (7.35-7.45) ABG pCO2 56 H (35-45) mmHg ABG HCO3 49 H* (21-25) mmol/L ABG Total CO2 50 H (19-24) mmol/L ABG O2 Saturation 90.0 L (94-97) % Sodium (137-145) mmol/L Potassium (3.5-5.1) mmol/L Chloride (98-107) mmol/L Carbon Dioxide (22-30) mmol/L Creatinine (0.52-1.04) mg/dL Glucose (74-99) mg/dL POC Glucose (mg/dL) 147 H (70-110) mg/dL Calcium (8.4-10.2) mg/dL 08/17/24 08/17/24 08/17/24 Range/Units 06:30 11:25 11:36 WBC (3.8-10.6) k/uL RBC (3.80-5.40) m/uL Hgb (11.4-16.0) gm/dL Hct (34.0-46.0) % ABG pH (7.35-7.45) ABG pCO2 (35-45) mmHg ABG HCO3 (21-25) mmol/L ABG Total CO2 (19-24) mmol/L ABG O2 Saturation (94-97) % Sodium 135 L (137-145) mmol/L Potassium 3.3 L (3.5-5.1) mmol/L Chloride 85 L (98-107) mmol/L Carbon Dioxide 44 H* (22-30) mmol/L Creatinine 0.50 L (0.52-1.04) mg/dL Glucose 140 H (74-99) mg/dL POC Glucose (mg/dL) 153 H (70-110) mg/dL Calcium 8.2 L (8.4-10.2) mg/dL Microbiology - Last 24 Hours (Table) 08/11/24 12:31 Blood Culture - Final Blood Assessment and Plan (1) MRSA (methicillin resistant Staphylococcus aureus) infection Current Visit: Yes Status: Acute Code(s): A49.02 - METHICILLIN RESIS STAPH INFECTION, UNSP SITE SNOMED Code(s): 634491002 (2) Allergy to sulfa drugs Current Visit: Yes Status: Acute Code(s): Z88.2 - ALLERGY STATUS TO SULFONAMIDES SNOMED Code(s): 42297261 (3) Failure of outpatient treatment Current Visit: Yes Status: Acute Code(s): Z78.9 - OTHER SPECIFIED HEALTH STATUS SNOMED Code(s): 193942211 (4) Pneumonia Current Visit: Yes Status: Acute Code(s): J18.9 - PNEUMONIA, UNSPECIFIED ORGANISM SNOMED Code(s): 084831443 Plan: 1patient presented hospital with increasing shortness of breath also have a cough bringing up some bloodstained sputum chest x-ray with a left lobe infiltrate patient did have elevated white count 28,000 with recent outpatient sputum culture positive for Streptococcus agalactiae MRSA and Morganella 2-patient repeat cultures are currently growing MRSA and Morganella that is sensitive to Zosyn and cefepime intermediate to ceftriaxone 4patient is afebrile today white count is 11.2, we will treat with vancomycin pharmacy to dose level is therapeutic and cefepime, apply Triad cream around the G-tube site because the drainage and daughter at the bedside, question and concerns answered Dictation was produced using [employer] dictation software. please excuse any grammatical, word or spelling errors. Time with Patient: Less than 30
[2024-08-17 17:40] LABS: Glucose,Whole Blood 138 mg/dL (70-110)
[2024-08-17] MEDS: VANCOMYCIN 1,000 MG in SODIUM CHLORIDE 0.9% 250 ML IVPB SCH (23:48)
[2024-08-18 00:06] LABS: Glucose,Whole Blood 146 mg/dL (70-110)
[2024-08-18 04:49] LABS: HCT 30.4 % (34.0-46.0); HGB 9.4 gm/dL (11.4-16.0); Hypochromasia Moderate; MCH 28.7 pg (25.0-35.0); MCHC 30.9 g/dL (31.0-37.0); MCV 92.7 fL (80.0-100.0); Mean Platelet Volume 9.4; Platelet Count 424 k/uL (150-450); RBC 3.28 m/uL (3.80-5.40); WBC 12.1 k/uL (3.8-10.6)
[2024-08-18 05:01] LABS: Potassium 3.7 mmol/L (3.5-5.1)
[2024-08-18 05:02] LABS: African American GFR (CKD) >90 (>60 ml/min/1.73 sqM); Anion Gap 7 mmol/L; Blood Urea Nitrogen 20 mg/dL (7-17); Calcium 8.9 mg/dL (8.4-10.2); Chloride 87 mmol/L (98-107); Glucose 141 mg/dL (74-99); Non-African American GFR(CKD) >90 (>60 ml/min/1.73 sqM); Sodium 134 mmol/L (137-145)
[2024-08-18 05:09] LABS: Carbon Dioxide 40 mmol/L (22-30)
[2024-08-18 05:30] LABS: ABG Base Excess 15.3 mmol/L; ABG PCO2 57 mmHg (35-45); ABG PH 7.46 (7.35-7.45); ABG PO2 98 mmHg (83-108); ABG TCO2 43 mmol/L (19-24)
[2024-08-18 05:38] LABS: ABG HCO3 41 mmol/L (21-25); Allen Test Performed? No
[2024-08-18] MEDS ORDERED: POTASSIUM BICARBONATE/CIT AC 20 MEQ TABLET.EFF NG-TUBE SCH (06:00)
[2024-08-18 06:27] LABS: Glucose,Whole Blood 146 mg/dL (70-110)
--- NOTE | 2024-08-18 09:03 | XR ---
EXAMINATION TYPE: XR chest 1V portable DATE OF EXAM: 08/18/2024 3:35 AM COMPARISON: 08/17/2019 CLINICAL INDICATION: Female, 64 years old with history of opacities, TECHNIQUE: XR chest 1V portable view(s) obtained. FINDINGS: The heart size is normal. The pulmonary vasculature is normal. Linear opacities left apex. There is diffuse lower lobe infiltrates. Small left pleural effusion is p resent. There is some mild improvement over the interval. Endotracheal tube tipr 3.4 cm above myranda. Staple is at the level IMPRESSION: 1. Bibasilar infiltrates and small left pleural effusion. 2. Left apical thickening [facility], , 08/18/2024 9:01 AM
[2024-08-18] MEDS: POTASSIUM BICARBONATE/CIT AC 20 MEQ TABLET.EFF NG-TUBE SCH (09:23)
--- NOTE | 2024-08-18 09:33 | P.PN ---
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 She developed atrial fibrillation with rapid ventricular rate and currently is on IV amiodarone maintaining sinus rhythm. She is hemodynamically stable she has a prior history of what seems to be DVT probably in her arm and has been anticoagulated. She is currently in sinus rhythm. She is still on a ventilator intubated. Overall prognosis seems poor.]. PHYSICIAL EXAM: [Hemodynamically stable vitals are stable S1-S2 heard normally no significant murmurs lungs reveal a ventilator assisted breath sounds abdomen is soft lower extremities reveal diminished pulses. Central nervous system assessment not performed]. IMPRESSION: 1. [Paroxysmal atrial fibrillation currently in sinus rhythm]. 2. [History of head and neck cancer s/p oral reconstructive surgery]. 3. [Recurrent aspiration pneumonia with respiratory failure]. 4. [History of DVT]. 5. []. RECOMMENDATIONS: [I would currently recommend that we start her on oral amiodarone at 200 mg twice daily and discontinue amiodarone after a dose. Will continue supportive care and see how she does. Continue anticoagulation with E liquis. Prognosis remains guarded]. Objective - Vital Signs Vital signs: Vital Signs Temp 97.8 F 08/18/24 08:00 Pulse 85 08/18/24 09:00 Resp 44 H 08/18/24 09:00 BP 85/57 08/17/24 16:15 Pulse Ox 94 L 08/18/24 09:00 FiO2 50 08/18/24 08:07 Intake & Output 08/17/24 08/18/24 08/18/24 18:59 06:59 18:59 Intake Total 8517.448 9201.227 263.284 Output Total 3725 3115 650 Balance -1214.639 -5101.773 -386.716 Weight 54.7 kg Intake: IV 726 701 69 0.9 NS 240 240 60 A Line 36 36 9 Anidulafungin 100 mg In 100 250 Sodium Chloride 0.9% 100 ml @ 84 mls/hr IVPB DAILY @1700 [facility] Rx#:[id number] Cefepime 2 gm In Sodium 100 175 Chloride 0.9% 100 ml @ 25 mls/hr IVPB Q8HR [facility] Rx# :[id number] Vancomycin 1,000 mg In 250 Sodium Chloride 0.9% 250 ml @ 125 mls/hr IVPB Q8H [facility] Rx#:[id number] Intake, IV Titration 330.361 378.227 38.284 Amount Amiodarone 450 mg In 230.282 Dextrose 5% in Water 250 ml @ 0.5 MG/MIN 16.667 mls/hr IV .Q15H [facility] Rx#: [id number] Diltiazem 125 mg In 75 Sodium Chloride 0.9% 100 ml @ 5 MG/HR 5 mls/hr IV .Q24H [facility] Rx#:[id number] Norepinephrine 8 mg In 105.869 25.137 38.284 Sodium Chloride 0.9% 250 ml @ 0.03 MCG/KG/MIN 3. 251 mls/hr IV .Q24H [facility] Rx#:[id number] propofoL 1,000 mg In 149.492 122.808 Empty Bag 1 bag @ 15 MCG/ KG/MIN 5.04 mls/hr IV . [id number] [facility] Rx#:[id number] Tube Feeding 504 504 126 Other 90 90 30 Output: Urine 3725 3115 650 Other: Voiding Method Indwelling Catheter Indwelling Catheter ABP, PAP, CO, CI - Last Documented Arterial Blood Pressure 125/61 - Labs CBC & Chem 7: 08/18/24 04:30 08/18/24 04:30 Labs: Abnormal Lab Results - Last 24 Hours (Table) 08/17/24 08/17/24 08/17/24 Range/Units 11:25 11:36 17:38 WBC (3.8-10.6) k/uL RBC (3.80-5.40) m/uL Hgb (11.4-16.0) gm/dL Hct (34.0-46.0) % MCHC (31.0-37.0) g/dL ABG pH (7.35-7.45) ABG pCO2 (35-45) mmHg ABG HCO3 (21-25) mmol/L ABG Total CO2 (19-24) mmol/L ABG O2 Saturation (94-97) % Hemoglobin (11.4-16.0) gm/dL Sodium (137-145) mmol/L Potassium 3.3 L (3.5-5.1) mmol/L Chloride (98-107) mmol/L Carbon Dioxide (22-30) mmol/L BUN (7-17) mg/dL Glucose (74-99) mg/dL POC Glucose (mg/dL) 153 H 138 H (70-110) mg/dL 08/18/24 08/18/24 08/18/24 Range/Units 00:04 04:30 04:30 WBC 12.1 H (3.8-10.6) k/uL RBC 3.28 L (3.80-5.40) m/uL Hgb 9.4 L (11.4-16.0) gm/dL Hct 30.4 L (34.0-46.0) % MCHC 30.9 L (31.0-37.0) g/dL ABG pH (7.35-7.45) ABG pCO2 (35-45) mmHg ABG HCO3 (21-25) mmol/L ABG Total CO2 (19-24) mmol/L ABG O2 Saturation (94-97) % Hemoglobin (11.4-16.0) gm/dL Sodium 134 L (137-145) mmol/L Potassium (3.5-5.1) mmol/L Chloride 87 L (98-107) mmol/L Carbon Dioxide 40 H (22-30) mmol/L BUN 20 H (7-17) mg/dL Glucose 141 H (74-99) mg/dL POC Glucose (mg/dL) 146 H (70-110) mg/dL 08/18/24 08/18/24 Range/Units 05:19 06:26 WBC (3.8-10.6) k/uL RBC (3.80-5.40) m/uL Hgb (11.4-16.0) gm/dL Hct (34.0-46.0) % MCHC (31.0-37.0) g/dL ABG pH 7.46 H (7.35-7.45) ABG pCO2 57 H (35-45) mmHg ABG HCO3 41 H* (21-25) mmol/L ABG Total CO2 43 H (19-24) mmol/L ABG O2 Saturation 98.0 H (94-97) % Hemoglobin 9.3 L (11.4-16.0) gm/dL Sodium (137-145) mmol/L Potassium (3.5-5.1) mmol/L Chloride (98-107) mmol/L Carbon Dioxide (22-30) mmol/L BUN (7-17) mg/dL Glucose (74-99) mg/dL POC Glucose (mg/dL) 146 H (70-110) mg/dL Microbiology - Last 24 Hours (Table) 08/17/24 11:25 Gram Stain - Preliminary Abdomen
[2024-08-18] MEDS: AMIODARONE 200 MG TAB PO SCH (09:55)
[2024-08-18 11:54] LABS: Glucose,Whole Blood 146 mg/dL (70-110)
--- NOTE | 2024-08-18 12:35 | P.PN ---
Subjective Progress Note Date: 08/18/24 Principal diagnosis: Acute hypoxic respiratory failure with bilateral aspiration pneumonia with sepsis and septic shock 08/11/2023, the patient is being seen for a follow-up. Is a 63-year-old female patient with past medical history of oral cancer and previous radical neck disse ction followed by radiation therapy and reconstructive surgery and the patient suffers from chronic dysphagia and the patient has PEG tube. The patient also has previous history of DVT/pulmonary embolism maintained on anticoagulation. She has history of atrial fibrillation, hypothyroidism and seizure disorders. For now, the patient is in the intensive care unit for an acute hypoxic respiratory failure. The patient is currently on Airvo at 60 L with an FiO2 of 90% %. Chest x-ray shows bilateral lower lobe consolidation and possibly some small effusions. Antibiotic coverage is with IV Eraxis, vancomycin and Rocephin. Sputum samples collected on 08/06/2024 was consistent with MRSA, Morganella morganii and strep agalactiae. The patient had developed significant leukocytosis which is downtrending and the white cell count from yesterday was down to 16. Patient also developed atrial fibrillation with rapid ventricular response over the past 24 to 48 hours. The patient based on that was started on Cardizem drip and she is already anticoagulated with Eliquis. She remains on Cardizem at 10 mg an hour. She is also on metoprolol 25 mg p.o. twice daily for rate control. The patient is also on oxygen and Airvo settings this morning is 6 L with an FiO2 of 90%. The patient has a J-tube for feeding receiving Jevity 1.5 at the rate of 40 cc an hour. The J-tube was replaced yesterday. This was done by general surgery. CAT scan of the abdomen done on 08/09/2024 showed that the jejunostomy tube was grossly intact. Nevertheless, it there was evidence of lower lobe consolidations bilaterally worse on the left. 08/12/2023, the patient is being seen for a follow-up. Condition is gradually compensated over the past 24 hours and the patient has become more hypoxic related to her pneumonia. Noted the patient was on high flow oxygen, Airvo 60 L with an FiO2 of 90%. Subsequently, she was given 100% nonrebreather facemask and the patient continued to have episodes of desaturation. At a later stage, overnight, the patient was placed on a BiPAP and currently she is on a BiPAP pre ssure of 15 over 10 cm of water with an FiO2 of 100%. Initially, this morning, she was still desaturating and her blood gas was obtained which showed a pH of 7.33 with a pCO2 of 74 and pO2 of 49. I attended on this patient immediately. I wanted to intubate the patient. However, I do acknowledge that this is going to be an extremely difficult intubation as the patient does not have any ability to open up her mouth due to chronic scarring in her neck muscles and scarring of her jaw and her neck is significantly scarred up and stiff related to previous radiation therapy. While adjusting the BiPAP mask, we improved the leaks and the pulse ox improved currently she is pulse oxing in order of 91 to 93%. Reviewed the chest x-ray from today shows diffuse bilateral airspace disease consistent with pneumonia. No evidence of any pneumothorax. The patient continues to have a congested cough. No significant sputum production. Despite his ongoing hypoxemia, she is breathing comfortably. Her current respiratory rate is in the mid 20s. She is still awake and communicating. No fever. No hemodynamic instability. She remains in atrial fibrillation. Antibiotic coverage remains unchanged and the patient remains on a combination of Rocephin and vancomycin and Eraxis. The fluid balance has been negative over the past 24 hours. The white cell count is at 18.10.8 and this is. Calcium level 6. The patient remains on DuoNeb nebulized treatments. In terms of her ongoing atrial fibrillation, she is on Cardizem drip at 15 mg an hour. She remains on anticoagulation with Eliquis. She is also on metoprololAt a dose of 25 mg p.o. twice a day. No hypotension. Hemodynamically stable. IV fluids are currently at KVO. On 08/13/2024, the patient is being seen for a follow-up. As mentioned, the patient was intubated yesterday and placed on mechanical ventilation due to bilateral pneumonia that was further complicated by an episode of aspiration. This morning, the patient is sedated and the patient is calm and comfortable. She is on assist-control mode of mechanical ventilation. He is on a rate of 16 with a tidal volume of 350 and FiO2 of 50% with a PEEP of 8. The blood gas showed a pH of 7.45 with a pCO2 of 54 and pO2 of 91. Chest x-ray is consistent with diffuse bilateral pulmonary filtrates/pneumonia. Bronchoscopy was also done and another bronchial aspirate was obtained, pending further cultures. She is calm and comfortable on propofol running at 35 mcg/kg/min. Noted post intubation, the patient became hypotensive. Received a liter bolus and currently she is on normal saline at rate of 100 cc an hour. Norepinephrine is running at 0.15 mcg/kg/min. She remains in atrial fibrillation. She is on amiodarone drip at 0.5 mg/min and she is also on Cardizem drip. Slightly tachycardic. Remains on Rocephin and vancomycin and Rocephin will be switched to Zosyn. Lasix will also to be discontinued. Enteral feeding is to be started today. The white cell count of 21 with a hemoglobin 10.3 and a platelet count of 427. Sodium is at 138, BUN 13 creatinine 0.4 and a potassium level is at 3.2 with a bicarb level of 37 On 08/14/2024, the patient is being seen for a follow-up. The patient remains intubated on the mechanical ventilator. Earlier this morning, the patient is on a 30 mcg of propofol and the patient is adequately sedated. She remains on the mechanical ventilator assist-control mode with rate of 16, tidal volume of 350, FiO2 of 50% with a PEEP of 8. Blood gases show a pH of 7.41 with a pCO2 of 51 and pO2 of 82. No significant respiratory secretions. The sputum cultures and the bronchial aspirate this was collected and sent for culture showed presumptive Staph aureus and gram-negative bacillus and the patient remains on broad-spectrum antibiotics and the patient remains on a combination of Zosyn and vancomycin. Chest x-ray findings are essentially unchanged and the patient has diffuse bilateral patchy pulmonary infiltrates consistent with pneumonia. Meanwhile, the patient is on normal saline at rate of 100 cc an hour. Hemod ynamically, she still requiring pressors and the patient is on norepinephrine at 0.06 mcg/kg/min. Earlier this morning, the patient was still tachycardic while being in atrial fibrillation. She was started on Cardizem drip at 5 mg an hour by cardiology. She remains on amiodarone 0.5 mg/min. The patient was also given metoprolol 25 mg p.o. twice daily and the patient remains on anticoagulation with Eliquis. She is receiving enteral feeding for nutritional support with vital high-protein at rate of 10 cc an hour. The white cell count is 14.3 with hemoglobin 9.5 and a platelet count of 375. Sodium is at 137, potassium is at 3.6, BUN is 8. The patient with a creatinine of 0.4 On 08/15/2024, the patient is being seen for a follow-up. On today's evaluation, the patient extremity, comfortable on propofol running at 30 mcg/kg/min. Chest x-ray shows stable bilateral pulmonary filtrates, essentially unchanged. The bronchial lavage that was obtained earlier was positive for MRSA and Morganella morganii and the patient remains on a combination of Zosyn and vancomycin. The patient remains on assist-control mode mechanical ventilation. The patient's current setting includes on assist-control mode with rate of 18, tidal volume of 350, FiO2 40% with a PEEP of 6. Blood gas showed a pH of 7.41 with a pCO2 of 52 and pO2 of 107 and there has been some improvement in the oxygenation. Fluid balance is +3.8 L. The patient remains on low-dose dose of norepinephrine running at 0.02 mcg/kg/min. IV fluids are in the form of normal saline at rate of 100 cc an hour and the patient's cardiac rhythm is converted into sinus. The patient is currently on oral amiodarone. The patient is also on vital high- protein at rate of 42 cc an hour and she is tolerating the enteral feeding. The white cell count of 12.7 with a hemoglobin 9.2 and a platelet count of 377. BUN is 9 with a creatinine of 0.4 and sodium levels at 138 with potassium level of 3.6. No other significant events overnight. On 08/16/2024, the patient is being seen for a follow-up. Remains sedated on propofol running at 30 mcg/kg/min. Chest x-ray still showing extensive bilateral consolidation and the previous bronchoalveolar lavage was consistent with Morganella morganii and MRSA. Remains on Zosyn and vancomycin. Remains on assist-control mode of mechanical ventilation at rate of 16, tidal volume of 350, FiO2 of 60% with a PEEP of 5. The blood gases from today shows a pH of 7.46 with a pCO2 of 53 and pO2 of 71. Fluid balance is positive around 3.8 L over the past 24 hours. IV fluids are currently at KVO. She remains on low- dose norepinephrine running at 0.08 mcg/kg/min. Overnight, the patient deve loped again atrial fibrillation with RVR. She was started on Cardizem drip at 5 mg an hour she is also back on IV amiodarone 0.5 mg/min. Vital high-protein for enteral feeding at rate of 42 cc an hour. The white cell count of 10.7 with a hemoglobin 9.2. Sodium is at 136, BUN is at 9 with a creatinine of 0.3 and a potassium level is at 3.3, needs to be replaced. No other significant events overnight. On 08/17/2024, the patient remains on the mechanical ventilator. This morning, the patient is on propofol for sedation and she is calm and comfortable. At the same time, she is on assist-control mode of mechanical ventilation at rate of 16, tidal volume of 350, FiO2 of 50% with a PEEP of 5. Blood gas showed a pH of 7.55 with a pCO2 of 56 and pO2 of 90. Chest x-ray findings are essentially unchanged. CAT scan of the chest was obtained this morning and it shows bilateral consolidation left more than right consistent with pneumonia and there is also small to moderate-sized pleural effusion. The patient remains on a combination of cefepime and vancomycin and Eraxis. Afebrile. Hemodynamically, she remains on low-dose norepinephrine running at 0.06 mcg/kg/min. Cardiac rhythm is converted to sinus and the patient remains on Cardizem drip at 5 mg an hour and the patient is also on amiodarone drip. The patient was started on diuretics. She is currently on a combination of Lasix and Zaroxolyn. She was receiving IV Lasix 40 mg IV every 8 hours and Zaroxolyn 5 mg p.o. twice a day. Fluid balance is -4.8 L over the past 24 hours. She remains on vital high- protein at rate of 40 cc an hour. The white cell count is 11 with a hemoglobin 9.6 and a platelet count of 383. Sodium is at 135, potassium is at 3.7, serum bicarb is at 44, BUN is 15 with a creatinine of 0.5. Calcium level is at 8.2. Patient was seen today on 08/18/23, remains in the ICU, intubated and mechanical ly ventilated, patient is on assist-control rate of 16 tidal volume 350 FiO2 50% PEEP of 5 ABG showed a pO2 of 98 pCO2 57 pH of 7.46 remains on norepinephrine at 0.03 mcg/kg/min propofol at 30 mcg/kg/min amiodarone 0.5 mg/min patient remains on cefepime and vancomycin she is also on Eraxis. Receiving nutritional support/vital HP at 42 cc/h. Patient has a right groin arterial line and triple-lumen catheter. She has a PEG and J-tube in place, patient remains on antibiotics in the form of cefepime and vancomycin, she had positive sputum for MRSA and Morganella. Opens eyes, does not follow instructions today, patient is sedated, plan is to hold sedation and address mental status off sedation today. WBC count is 12.1 hemoglobin 9.4, Basic metabolic profile is normal bicarb is 14 renal profile is normal chest x-ray continues show bilateral bibasilar infiltrates consistent with aspiration pneumonia minimal improvement compared to baseline Objective - Vital Signs Vital signs: Vital Signs Temp 97.8 F 08/18/24 08:00 Pulse 82 08/18/24 12:01 Resp 16 08/18/24 11:00 BP 85/57 08/17/24 16:15 Pulse Ox 96 08/18/24 11:00 FiO2 50 08/18/24 12:01 Intake & Output 08/17/24 08/18/24 08/18/24 18:59 06:59 18:59 Intake Total 3453.261 6357.227 625.345 Output Total 3725 3115 1400 Balance -2074.639 -1441.773 -774.655 Weight 54.7 kg 54.7 kg Intake: IV 726 701 238 0.9 NS 240 240 120 A Line 36 36 18 Anidulafungin 100 mg In 100 250 Sodium Chloride 0.9% 100 ml @ 84 mls/hr IVPB DAILY @1700 [facility] Rx#:[id number] Cefepime 2 gm In Sodium 100 175 100 Chloride 0.9% 100 ml @ 25 mls/hr IVPB Q8HR [facility] Rx# :[id number] Vancomycin 1,000 mg In 250 Sodium Chloride 0.9% 250 ml @ 125 mls/hr IVPB Q8H [facility] Rx#:[id number] Intake, IV Titration 330.361 378.227 89.345 Amount Amiodarone 450 mg In 230.282 Dextrose 5% in Water 250 ml @ 0.5 MG/MIN 16.667 mls/hr IV .Q15H [facility] Rx#: [id number] Diltiazem 125 mg In 75 Sodium Chloride 0.9% 100 ml @ 5 MG/HR 5 mls/hr IV .Q24H [facility] Rx#:[id number] Norepinephrine 8 mg In 105.869 25.137 52.497 Sodium Chloride 0.9% 250 ml @ 0.03 MCG/KG/MIN 3. 251 mls/hr IV .Q24H [facility] Rx#:[id number] propofoL 1,000 mg In 149.492 122.808 36.848 Empty Bag 1 bag @ 15 MCG/ KG/MIN 5.04 mls/hr IV . [id number] [facility] Rx#:[id number] Tube Feeding 504 504 238 Other 90 90 60 Output: Urine 3725 3115 1400 Other: Voiding Method Indwelling Catheter Indwelling Catheter Indwelling Catheter ABP, PAP, CO, CI - Last Documented Arterial Blood Pressure 110/46 - Exam GENERAL EXAM: 63-year-old female intubated mechanically ventilated sedated HEAD: Normocephalic and atraumatic EYES: PERRLA, EOMI, nonicteric no neck masses no JVD no stridor NOSE: Clear with pink turbinates. THROA. Edentulous, surgical neck scar noted from previous reconstructive surgery unable to open her mouth as the patient has jaw dysfunction and scarring in her neck muscles.. CHEST: No chest wall deformity. LUNGS: Crackles and rhonchi noted bilaterally especially at the bases CVS: Irregular rhythm, normal S1-S2, no S3 gallop Abdomen: Evidence of gastrostomy and jejunostomy tubes noted otherwise unremarkable SKIN: No rashes CENTRAL NERVOUS SYSTEM: Sedated, calm could not fully assess because of sedation EXTREMITIES: There is no peripheral edema, clubbing, or cyanosis. Peripheral pulses are intact. - Labs CBC & Chem 7: 08/18/24 04:30 08/18/24 04:30 Labs: Abnormal Lab Results - Last 24 Hours (Table) 08/17/24 08/18/24 08/18/24 Range/Units 17:38 00:04 04:30 WBC 12.1 H (3.8-10.6) k/uL RBC 3.28 L (3.80-5.40) m/uL Hgb 9.4 L (11.4-16.0) gm/dL Hct 30.4 L (34.0-46.0) % MCHC 30.9 L (31.0-37.0) g/dL ABG pH (7.35-7.45) ABG pCO2 (35-45) mmHg ABG HCO3 (21-25) mmol/L ABG Total CO2 (19-24) mmol/L ABG O2 Saturation (94-97) % Hemoglobin (11.4-16.0) gm/dL Sodium (137-145) mmol/L Chloride (98-107) mmol/L Carbon Dioxide (22-30) mmol/L BUN (7-17) mg/dL Glucose (74-99) mg/dL POC Glucose (mg/dL) 138 H 146 H (70-110) mg/dL 08/18/24 08/18/24 08/18/24 Range/Units 04:30 05:19 06:26 WBC (3.8-10.6) k/uL RBC (3.80-5.40) m/uL Hgb (11.4-16.0) gm/dL Hct (34.0-46.0) % MCHC (31.0-37.0) g/dL ABG pH 7.46 H (7.35-7.45) ABG pCO2 57 H (35-45) mmHg ABG HCO3 41 H* (21-25) mmol/L ABG Total CO2 43 H (19-24) mmol/L ABG O2 Saturation 98.0 H (94-97) % Hemoglobin 9.3 L (11.4-16.0) gm/dL Sodium 134 L (137-145) mmol/L Chloride 87 L (98-107) mmol/L Carbon Dioxide 40 H (22-30) mmol/L BUN 20 H (7-17) mg/dL Glucose 141 H (74-99) mg/dL POC Glucose (mg/dL) 146 H (70-110) mg/dL 08/18/24 Range/Units 11:52 WBC (3.8-10.6) k/uL RBC (3.80-5.40) m/uL Hgb (11.4-16.0) gm/dL Hct (34.0-46.0) % MCHC (31.0-37.0) g/dL ABG pH (7.35-7.45) ABG pCO2 (35-45) mmHg ABG HCO3 (21-25) mmol/L ABG Total CO2 (19-24) mmol/L ABG O2 Saturation (94-97) % Hemoglobin (11.4-16.0) gm/dL Sodium (137-145) mmol/L Chloride (98-107) mmol/L Carbon Dioxide (22-30) mmol/L BUN (7-17) mg/dL Glucose (74-99) mg/dL POC Glucose (mg/dL) 146 H (70-110) mg/dL Microbiology - Last 24 Hours (Table) 08/17/24 11:25 Gram Stain - Preliminary Abdomen Assessment and Plan Assessment: Impression: Acute hypoxic respiratory failure secondary to aspiration pneumonia, sputum positive for MRSA and positive for Morganella morganii as well as Rosa, patient remains on Eraxis vancomycin and cefepime Sepsis with septic shock requiring pressors Chronic atrial fibrillation 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 with radiation therapy followed by reconstructive surgery Chronic dysphagia with chronic aspiration patient had PEG tube and jejunostomy tube placed for enteral nutrition History of radiation pneumonitis History of DVT and pulmonary embolism remains on Eliquis Hypothyroidism History of seizure disorder Recommendation: Continue ventilatory support Continue hemodynamic support Continue nutritional support Continue GI and DVT prophylaxis Continue diuretics including Diamox Continue antibiotics and antifungal Continue amiodarone and Cardizem Continue metoprolol Continue Eliquis Continue bronchodilators Patient will be given a trial of sedation holiday and assessment of mental status today, Not quite ready for extubation Patient is critically ill, critical care time is over 30 minutes Time with Patient: Greater than 30
--- NOTE | 2024-08-18 14:01 | P.PN ---
Subjective Progress Note Date: 08/18/24 SURGICAL PROGRESS NOTE CHIEF COMPLAINT: Respiratory failure HISTORY OF PRESENT ILLNESS: Patient remains intubated on mechanical ventilation in the ICU. Patient is tolerating her tube feeds. Tube feeds at 35 mL/h. No residual. PHYSICAL EXAM: VITAL SIGNS: Reviewed. GENERAL: Intubated and sedated ABDOMEN: Soft. Nondistended. Nontender. PEG tube site clean dry and intact. ASSESSMENT: 1. Clogged jejunostomy tube and nausea status post J-tube exchange at bedside 2. Aspiration pneumonia 3. History of tongue and neck cancer status post chemo and radiation and reconstructive surgery PLAN: -Tube feed titration per dietitian -Surgical service will sign off. Please call with any questions or concerns Physician Hostler Helper note has been reviewed by physician. Signing provider agrees with the documented findings, assessment, and plan of care. Objective - Vital Signs Vital signs: Vital Signs Temp 99.4 F 08/18/24 12:00 Pulse 84 08/18/24 13:00 Resp 16 08/18/24 13:00 BP 85/57 08/17/24 16:15 Pulse Ox 97 08/18/24 13:00 FiO2 50 08/18/24 13:03 Intake & Output 08/17/24 08/18/24 08/18/24 18:59 06:59 18:59 Intake Total 1902.691 7308.227 683.345 Output Total 3725 3115 1475 Balance -2074.639 -1441.773 -791.655 Weight 54.7 kg 54.7 kg Intake: IV 726 701 261 0.9 NS 240 240 140 A Line 36 36 21 Anidulafungin 100 mg In 100 250 Sodium Chloride 0.9% 100 ml @ 84 mls/hr IVPB DAILY @1700 [facility] Rx#:[id number] Cefepime 2 gm In Sodium 100 175 100 Chloride 0.9% 100 ml @ 25 mls/hr IVPB Q8HR [facility] Rx# :[id number] Vancomycin 1,000 mg In 250 Sodium Chloride 0.9% 250 ml @ 125 mls/hr IVPB Q8H [facility] Rx#:[id number] Intake, IV Titration 330.361 378.227 89.345 Amount Amiodarone 450 mg In 230.282 Dextrose 5% in Water 250 ml @ 0.5 MG/MIN 16.667 mls/hr IV .Q15H [facility] Rx#: [id number] Diltiazem 125 mg In 75 Sodium Chloride 0.9% 100 ml @ 5 MG/HR 5 mls/hr IV .Q24H [facility] Rx#:[id number] Norepinephrine 8 mg In 105.869 25.137 52.497 Sodium Chloride 0.9% 250 ml @ 0.03 MCG/KG/MIN 3. 251 mls/hr IV .Q24H [facility] Rx#:[id number] propofoL 1,000 mg In 149.492 122.808 36.848 Empty Bag 1 bag @ 15 MCG/ KG/MIN 5.04 mls/hr IV . [id number] [facility] Rx#:[id number] Tube Feeding 504 504 273 Other 90 90 60 Output: Urine 0487 5979 7115 Other: Voiding Method Indwelling Catheter Indwelling Catheter Indwelling Catheter ABP, PAP, CO, CI - Last Documented Arterial Blood Pressure 126/57 - Labs CBC & Chem 7: 08/18/24 04:30 08/18/24 04:30 Labs: Abnormal Lab Results - Last 24 Hours (Table) 08/17/24 08/18/24 08/18/24 Range/Units 17:38 00:04 04:30 WBC 12.1 H (3.8-10.6) k/uL RBC 3.28 L (3.80-5.40) m/uL Hgb 9.4 L (11.4-16.0) gm/dL Hct 30.4 L (34.0-46.0) % MCHC 30.9 L (31.0-37.0) g/dL ABG pH (7.35-7.45) ABG pCO2 (35-45) mmHg ABG HCO3 (21-25) mmol/L ABG Total CO2 (19-24) mmol/L ABG O2 Saturation (94-97) % Hemoglobin (11.4-16.0) gm/dL Sodium (137-145) mmol/L Chloride (98-107) mmol/L Carbon Dioxide (22-30) mmol/L BUN (7-17) mg/dL Glucose (74-99) mg/dL POC Glucose (mg/dL) 138 H 146 H (70-110) mg/dL 08/18/24 08/18/24 08/18/24 Range/Units 04:30 05:19 06:26 WBC (3.8-10.6) k/uL RBC (3.80-5.40) m/uL Hgb (11.4-16.0) gm/dL Hct (34.0-46.0) % MCHC (31.0-37.0) g/dL ABG pH 7.46 H (7.35-7.45) ABG pCO2 57 H (35-45) mmHg ABG HCO3 41 H* (21-25) mmol/L ABG Total CO2 43 H (19-24) mmol/L ABG O2 Saturation 98.0 H (94-97) % Hemoglobin 9.3 L (11.4-16.0) gm/dL Sodium 134 L (137-145) mmol/L Chloride 87 L (98-107) mmol/L Carbon Dioxide 40 H (22-30) mmol/L BUN 20 H (7-17) mg/dL Glucose 141 H (74-99) mg/dL POC Glucose (mg/dL) 146 H (70-110) mg/dL 08/18/24 Range/Units 11:52 WBC (3.8-10.6) k/uL RBC (3.80-5.40) m/uL Hgb (11.4-16.0) gm/dL Hct (34.0-46.0) % MCHC (31.0-37.0) g/dL ABG pH (7.35-7.45) ABG pCO2 (35-45) mmHg ABG HCO3 (21-25) mmol/L ABG Total CO2 (19-24) mmol/L ABG O2 Saturation (94-97) % Hemoglobin (11.4-16.0) gm/dL Sodium (137-145) mmol/L Chloride (98-107) mmol/L Carbon Dioxide (22-30) mmol/L BUN (7-17) mg/dL Glucose (74-99) mg/dL POC Glucose (mg/dL) 146 H (70-110) mg/dL Microbiology - Last 24 Hours (Table) 08/17/24 11:25 Gram Stain - Preliminary Abdomen
[2024-08-18 17:34] LABS: Glucose,Whole Blood 147 mg/dL (70-110)
[2024-08-18 23:42] LABS: Glucose,Whole Blood 132 mg/dL (70-110)
[2024-08-19] MEDS: POTASSIUM BICARBONATE/CIT AC 20 MEQ TABLET.EFF NG-TUBE SCH ×2 (05:08→09:02)
[2024-08-19 05:19] LABS: ABG Base Excess 14.5 mmol/L; ABG Oxygen Saturation 98.9 % (94-97); ABG PCO2 52 mmHg (35-45); ABG PH 7.49 (7.35-7.45); ABG PO2 112 mmHg (83-108); ABG TCO2 41 mmol/L (19-24)
[2024-08-19 05:23] LABS: ABG HCO3 40 mmol/L (21-25); Allen Test Performed? no
[2024-08-19 05:47] LABS: Basophils % (A) 0 %; Eosinophils # (A) 0.6 k/uL (0-0.7); Eosinophils % (A) 6 %; HCT 28.3 % (34.0-46.0); HGB 8.8 gm/dL (11.4-16.0); Hypochromasia Slight; Lymphocytes # (A) 1.1 k/uL (1.0-4.8); Lymphocytes % (A) 11 %; MCH 28.5 pg (25.0-35.0); MCHC 31.2 g/dL (31.0-37.0); MCV 91.3 fL (80.0-100.0); Mean Platelet Volume 9.3; Monocytes # (A) 0.7 k/uL (0-1.0); Monocytes % (A) 7 %; Neutrophils # (A) 7.6 k/uL (1.3-7.7); Neutrophils % (A) 75 %; Platelet Count 399 k/uL (150-450); WBC 10.1 k/uL (3.8-10.6)
--- NOTE | 2024-08-19 05:57 | P.PN ---
Subjective Progress Note Date: 08/18/24 This is a pleasant 63 years old female with past medical history of multiple medical problems. Patient called her PCP office of Dr. Anderson and talked to his nurse practitioner Lynnette from she sees in the office complaining from little shortness of breath for the last 4 to 5 days with some cough and phlegm Associated with left lateral chest pain about 7/10 that is worse with coughing and deep breath. 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 Will BMP and LFTs were unremarkable as well as INR proBNP is 248 Chest x-ray showing left lower lobe infiltrate suspicious for pneumonia Patient was started on IV vancomycin and Zosyn and normal saline with pulmonary and ID team consult 08/07/2023 Patient sitting up in bed looks similar to yesterday, complaining from some pain in her left side of the chest but it looks controlled and patient is not in distress No significant dyspnea or tachypnea, she can go to the bathroom by herself with no exertional dyspnea However her oxygen requirement increased from 4 L up to 10 L today. Blood pressure is borderline and patient says usually her blood pressure on the low side Repeat chest x-ray showing similar left lower lobe infiltrate. 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 Further workup including sputum culture and blood culture are pending. Blood pressure improved Remains on IV vancomycin and ceftriaxone IV fluid was lower dose 130 down to 75 mL/h Pro- Calcitonin is negative 08/09. Patient seen and examined. Currently on 11 L of oxygen. Patient had her jejunostomy tube not functioning, surgery consulted, they order CT abdominal pelvis 08/10. Patient seen and examined. Patient went into A-fib with RVR overnight, had worsening respiratory status. Patient had rapid sponsor called and was transferred to ICU. Patient currently on Airvo. Gets short of breath on exertion 08/11 Patient respiratory status got worse and she was moved to the ICU. Currently she is awake alert but requires 60 L/min with 90% of FiO2 Abdomen soft, PEG tube is in place No headache or dizziness WBC is trending down to 16,000, hemoglobin down to two 9.7 Pro- Calcitonin increased to 1.6 and 1 extra dose of MiraLAX is added to her antibiotic Ejection fraction is 65 to 70% CT of the abdomen pelvis showing nonobstructive lesion Patient currently covered with IV vancomycin and ceftriaxone and Eraxis, also patient developed A-fib with RVR and followed by housing officer, started on Eliquis at metoprolol also patient continued on aspirin 08/12 Patient currently remains in the ICU, her breathing function gets worse overnight, yesterday she had to be placed on nonrebreather, and Worsened currently and she was placed on BiPAP in the morning with a setting of 15/10 and FiO2 of 100% Patient herself is awake and alert, she says that her breathing is hard but similar to yesterday. She is saturating about 92% on this current BiPAP setting. She denies chest pain She still mildly tachycardic with heart rate 126 with A-fib and RVR, currently she has been followed by housing officer and getting Cardizem drip at 15 mg/h. Discussed the case with pulmonary service regarding her worsening send respiratory symptoms. Patient may require intubation patient is agreeable however because of her mild surgery will be very difficult situation. Therefore they will try to give her some more time before needed intervention. Repeat chest x-ray from this morning showing worsening pneumonia Yesterday pro- Calcitonin was worsened and her antibiotics were updated per ID team, currently on IV vancomycin, ceftriaxone and Eraxis. Also she is continued on Eliquis for new diagnosis of A-fib. Also she is on aspirin 81 mg, oral 08/13 Yesterday night patient still complaining from respiratory distress had to be intubated and currently she is on mechanical ventilation. Her blood pressure is stable and she is afebrile. Labs showing worsening leukocytosis to 21,000, hemoglobin slightly less than 10.3 Patient remains on broad-spectrum antibiotics with IV vancomycin,Ceftriaxone and Eraxis She is also on amiodarone drip, Eliquis 5 mg twice daily and aspirin 81 mg. 08/14 Patient remains in the ICU intubated and sedated. Her FiO2 today was 50% She is afebrile and rest of vitals look stable Leukocytosis is also improving down to 14,000, hemoglobin stable at 9.5. Patient currently covered with Eliquis and metoprolol and digoxin x 1 per Car diologist She remains on IV vancomycin, Zosyn and Eraxis Abdominal wound is closed with no drains Rios catheter in place 08/15. Patient seen and examined. Currently intubated. Family at the bedside, questions answered 08/16. Patient seen and examined. Blood work done this morning showed WBC 10.7, hemoglobin 9.2, sodium 130s, potassium 3.3 BUN 9, creatinine 0.43. Chest x-ray done this morning showed worsening infiltrates. Lasix dose has been changed to 40 mg 3 times daily. . Patient seen and examined. Blood work done this morning showed WBC 11.2, hemoglobin 9.6, platelet count 383, sodium 137, potassium 3.7, BUN 15, creatinine 0.50. Patient is -1993 mL over last 24 hours. Patient has been switched to IV Lasix twice a day with Diamox. 08/18/2024 Patient is seen in follow-up continues to be in the ICU with multiple consultations following. Patient is maintained on tube feeds with dietary adjusting as patient had J-tube exchanged by general surgery. Patient also continues on multiple antibiotics with infectious disease following and will continue. Patient continues on mechanical vent although is on CPAP mode and is awake and following some minimal commands. No plans extubation at this time. Patient continues with fecal management system along with indwelling Rios catheter and will continue. Cardiology following as well and patient is maintained on IV diuresis REVIEW OF SYSTEMS: Review of system cannot be obtained as patient is intubated PHYSICAL EXAMINATION: GENERAL: The patient is intubated although undergoing sedation trial and is awake eye tracking and following some commands, well-developed, elderly appearing, ill-appearing HEENT: Pupils are round and equally reacting to light. EOMI. No scleral icterus. No conjunctival pallor. Normocephalic, atraumatic. No pharyngeal erythema. No thyromegaly. CARDIOVASCULAR: S1 and S2 muffled PULMONARY coarse breath sounds bilaterally, bilateral crackles audible on exam ABDOMEN: Soft, nontender, nondistended, normoactive bowel sounds. No palpable organomegaly. Jejunostomy tube seen and tolerating tube feeds thus far MUSCULOSKELETAL: No joint swelling or deformity. EXTREMITIES: No cyanosis, clubbing, 1+ pitting edema of lower extremities bilaterally NEUROLOGICAL: Intubated although off sedation currently SKIN: No rashes. Pale Assessment: Bilateral pneumonia, aspiration pneumonia, sputum sample obtained 08/01 and again on August 06, 2024 positive for MRSA, Morganella, and group B strep and Rosa Sepsis with septic shock requiring pressor support secondary to above Acute hypoxic respiratory failure secondary to above, currently on mechanical ventilation undergoing assist modes Mild calorie protein malnutrition, maintained on tube feeds History of mouth cancer , currently she uses J tube for nutrition, J-tube was clogged and is status post exchange and functioning COPD, not in acute exacerbation History of pneumonia not on anticoagulation History of seizure GI prophylaxis DVT prophylaxis Full code Plan: Patient is continued in the ICU with multiple consultations following Patient continues on vent management currently assist mode with no plans of extubation at this time although is awake with eyes opening and following commands Continue with tube feeds per dietary at a reduced rate and monitor for aspiration precautions. Recommend head of the bed elevated 30 to 45 degrees at all times Patient continues with fecal management system maintained on multiple antibiotics with infectious disease following as cultures are positive for MRSA, Morganella, group B strep as well as Rosa General Surgery was following and exchange the J-tube and is functioning okay to resume tube feeds Overall prognosis is extremely guarded at this time The impression and plan of care has been dictated by Annika Gayle, Nurse Practitioner as directed. Dr. Reinaldo MD I have performed a history and examination and MDM of this patient, discussed the same with the dictator, and agree with the dictator's assessment and plan as written ,documented as a scribe. Based on total visit time, I have performed more than 50% of the visit. Objective - Vital Signs Vital signs: Vital Signs Temp 97.8 F 08/18/24 08:00 Pulse 82 08/18/24 12:01 Resp 16 08/18/24 11:00 BP 85/57 08/17/24 16:15 Pulse Ox 96 08/18/24 11:00 FiO2 50 08/18/24 12:01 Intake & Output 08/17/24 08/18/24 08/18/24 18:59 06:59 18:59 Intake Total 2612.496 0528.227 434.798 Output Total 3725 3115 1225 Balance -2074.639 -1441.773 -790.202 Weight 54.7 kg 54.7 kg Intake: IV 726 701 115 0.9 NS 240 240 100 A Line 36 36 15 Anidulafungin 100 mg In 100 250 Sodium Chloride 0.9% 100 ml @ 84 mls/hr IVPB DAILY @1700 [facility] Rx#:[id number] Cefepime 2 gm In Sodium 100 175 Chloride 0.9% 100 ml @ 25 mls/hr IVPB Q8HR [facility] Rx# :[id number] Vancomycin 1,000 mg In 250 Sodium Chloride 0.9% 250 ml @ 125 mls/hr IVPB Q8H [facility] Rx#:[id number] Intake, IV Titration 330.361 378.227 86.798 Amount Amiodarone 450 mg In 230.282 Dextrose 5% in Water 250 ml @ 0.5 MG/MIN 16.667 mls/hr IV .Q15H [facility] Rx#: [id number] Diltiazem 125 mg In 75 Sodium Chloride 0.9% 100 ml @ 5 MG/HR 5 mls/hr IV .Q24H [facility] Rx#:[id number] Norepinephrine 8 mg In 105.869 25.137 49.950 Sodium Chloride 0.9% 250 ml @ 0.03 MCG/KG/MIN 3. 251 mls/hr IV .Q24H [facility] Rx#:[id number] propofoL 1,000 mg In 149.492 122.808 36.848 Empty Bag 1 bag @ 15 MCG/ KG/MIN 5.04 mls/hr IV . [id number] [facility] Rx#:[id number] Tube Feeding 504 504 203 Other 90 90 30 Output: Urine 8776 9083 6515 Other: Voiding Method Indwelling Catheter Indwelling Catheter Indwelling Catheter ABP, PAP, CO, CI - Last Documented Arterial Blood Pressure 110/46 - Labs CBC & Chem 7: 08/18/24 04:30 08/19/24 00:40 Labs: Abnormal Lab Results - Last 24 Hours (Table) 08/17/24 08/18/24 08/18/24 Range/Units 17:38 00:04 04:30 WBC 12.1 H (3.8-10.6) k/uL RBC 3.28 L (3.80-5.40) m/uL Hgb 9.4 L (11.4-16.0) gm/dL Hct 30.4 L (34.0-46.0) % MCHC 30.9 L (31.0-37.0) g/dL ABG pH (7.35-7.45) ABG pCO2 (35-45) mmHg ABG HCO3 (21-25) mmol/L ABG Total CO2 (19-24) mmol/L ABG O2 Saturation (94-97) % Hemoglobin (11.4-16.0) gm/dL Sodium (137-145) mmol/L Chloride (98-107) mmol/L Carbon Dioxide (22-30) mmol/L BUN (7-17) mg/dL Glucose (74-99) mg/dL POC Glucose (mg/dL) 138 H 146 H (70-110) mg/dL 08/18/24 08/18/24 08/18/24 Range/Units 04:30 05:19 06:26 WBC (3.8-10.6) k/uL RBC (3.80-5.40) m/uL Hgb (11.4-16.0) gm/dL Hct (34.0-46.0) % MCHC (31.0-37.0) g/dL ABG pH 7.46 H (7.35-7.45) ABG pCO2 57 H (35-45) mmHg ABG HCO3 41 H* (21-25) mmol/L ABG Total CO2 43 H (19-24) mmol/L ABG O2 Saturation 98.0 H (94-97) % Hemoglobin 9.3 L (11.4-16.0) gm/dL Sodium 134 L (137-145) mmol/L Chloride 87 L (98-107) mmol/L Carbon Dioxide 40 H (22-30) mmol/L BUN 20 H (7-17) mg/dL Glucose 141 H (74-99) mg/dL POC Glucose (mg/dL) 146 H (70-110) mg/dL 08/18/24 Range/Units 11:52 WBC (3.8-10.6) k/uL RBC (3.80-5.40) m/uL Hgb (11.4-16.0) gm/dL Hct (34.0-46.0) % MCHC (31.0-37.0) g/dL ABG pH (7.35-7.45) ABG pCO2 (35-45) mmHg ABG HCO3 (21-25) mmol/L ABG Total CO2 (19-24) mmol/L ABG O2 Saturation (94-97) % Hemoglobin (11.4-16.0) gm/dL Sodium (137-145) mmol/L Chloride (98-107) mmol/L Carbon Dioxide (22-30) mmol/L BUN (7-17) mg/dL Glucose (74-99) mg/dL POC Glucose (mg/dL) 146 H (70-110) mg/dL Microbiology - Last 24 Hours (Table) 08/17/24 11:25 Gram Stain - Preliminary Abdomen
[2024-08-19 06:07] LABS: ALT 33 U/L (4-34); AST 41 U/L (14-36); African American GFR (CKD) >90 (>60 ml/min/1.73 sqM); Albumin 2.2 g/dL (3.5-5.0); Alkaline Phosphatase 124 U/L (38-126); Blood Urea Nitrogen 24 mg/dL (7-17); Calcium 8.8 mg/dL (8.4-10.2); Chloride 88 mmol/L (98-107); Glucose 125 mg/dL (74-99); Non-African American GFR(CKD) >90 (>60 ml/min/1.73 sqM); Potassium 3.6 mmol/L (3.5-5.1); Sodium 132 mmol/L (137-145); Total Bilirubin 0.1 mg/dL (0.2-1.3); Total Protein 5.2 g/dL (6.3-8.2)
[2024-08-19 06:12] LABS: Anion Gap 7 mmol/L
[2024-08-19 06:24] LABS: Carbon Dioxide 37 mmol/L (22-30)
[2024-08-19 06:45] LABS: Glucose,Whole Blood 147 mg/dL (70-110)
--- NOTE | 2024-08-19 07:17 | XR ---
EXAMINATION TYPE: XR chest 1V portable DATE OF EXAM: 08/19/2024 5:17 AM COMPARISON: 08/18/2024 CLINICAL INDICATION: Female, 64 years old with history of mechanical ventilation; TECHNIQUE: XR chest 1V portable Frontal view of the chest. FINDINGS: Lungs/Pleura: No evidence of focal consolidation or pneumothorax. Blunting of the costophrenic angles is present. Pulmonary vascularity: Mild pulmonary vascular congestion. Heart/mediastinum: Cardiomediastinal silhouette is enlarged. Musculoskeletal: No acute osseous pathology. IMPRESSION: Cardiomegaly, pulmonary vascular congestion and bilateral pleural effusions. Correlate with BNP for c ongestive heart failure. [facility], , 08/19/2024 7:15 AM
[2024-08-19] MEDS: DEXTROSE 5% IN WATER 100 ML with AMIODARONE 150 MG IV ONE (08:08)
[2024-08-19] MEDS: FUROSEMIDE 10 MG/ML 2 ML VIAL IV SCH (08:15)
[2024-08-19] MEDS: AMIODARONE 450 MG in DEXTROSE 5% IN WATER 250 ML IV SCH (08:20)
--- NOTE | 2024-08-19 09:00 | P.PN ---
Subjective Progress Note Date: 08/19/24 HPI: This is a 63-year-old lady with multiple medical problems including radical neck dissection for oral cancer and reconstructive surgery. She has a PEG tube. She has history of recurrent aspiration pneumonia. She is here with multiple comorbid conditions including pneumonia infection around the site of PEG tube. She also has atrial fibrillation. She is currently on a ventilator. She was in a sinus rhythm yesterday but she is back in atrial fibrillation removed relatively stable hemodynamically. She is on a ventilator cannot assess neurological status. I am recommending that we will give amiodarone 150 mg bolus and a 0.5 mg drip for another 24 hours and hold oral amiodarone which I had switched to yesterday.. PHYSICIAL EXAM: Hemodynamically stable vitals are stable S1-S2 with irregularity rhythm short systolic murmur ventilator assisted breath sounds abdomen is soft lower extremities reveal diminished pulses Central nervous system not assessed. IMPRESSION: 1. Aspiration pneumonia and respiratory failure. 2. Paroxysmal atrial fibrillation currently in A-fib with a moderate rate. 3. History of head and neck cancer s/p surgery and reconstructive surgery. 4. History of DVT. 5.. RECOMMENDATIONS: Advised to try amiodarone IV bolus and drip for for 24 hours at 0.5 mg. Hold oral amiodarone. No other suggestions prognosis remains guarded. Objective - Vital Signs Vital signs: Vital Signs Temp 98.6 F 08/19/24 04:00 Pulse 131 H 08/19/24 08:45 Resp 17 08/19/24 07:00 BP 85/57 08/17/24 16:15 Pulse Ox 96 08/19/24 07:00 FiO2 45 08/19/24 08:46 Intake & Output 08/18/24 08/19/24 08/19/24 18:59 06:59 18:59 Intake Total 8703.472 4879.531 64.233 Output Total 1925 1650 75 Balance -649.681 -520.469 -10.767 Weight 54.7 kg 58.1 kg Intake: IV 376 576 23 0.9 NS 240 190 20 A Line 36 36 3 Cefepime 2 gm In Sodium 100 100 Chloride 0.9% 100 ml @ 25 mls/hr IVPB Q8HR [facility] Rx# :[id number] Vancomycin 1,000 mg In 250 Sodium Chloride 0.9% 250 ml @ 125 mls/hr IVPB Q8H [facility] Rx#:[id number] Intake, IV Titration 361.319 43.531 6.233 Amount Norepinephrine 8 mg In 68.535 3.631 6.233 Sodium Chloride 0.9% 250 ml @ 0.03 MCG/KG/MIN 3. 251 mls/hr IV .Q24H [facility] Rx#:[id number] Vancomycin 1,000 mg In 250 Sodium Chloride 0.9% 250 ml @ 125 mls/hr IVPB Q12H [facility] Rx#:[id number] propofoL 1,000 mg In 42.784 39.9 Empty Bag 1 bag @ 15 MCG/ KG/MIN 5.04 mls/hr IV . [id number] [facility] Rx#:[id number] Tube Feeding 448 420 35 Other 90 90 Output: Urine 1925 1650 75 Other: Voiding Method Indwelling Catheter Indwelling Catheter ABP, PAP, CO, CI - Last Documented Arterial Blood Pressure 98/48 - Labs CBC & Chem 7: 08/19/24 05:20 08/19/24 05:20 Labs: Abnormal Lab Results - Last 24 Hours (Table) 08/18/24 08/18/24 08/18/24 Range/Units 11:52 17:32 23:40 RBC (3.80-5.40) m/uL Hgb (11.4-16.0) gm/dL Hct (34.0-46.0) % ABG pH (7.35-7.45) ABG pCO2 (35-45) mmHg ABG pO2 (83-108) mmHg ABG HCO3 (21-25) mmol/L ABG Total CO2 (19-24) mmol/L ABG O2 Saturation (94-97) % Sodium (137-145) mmol/L Chloride (98-107) mmol/L Carbon Dioxide (22-30) mmol/L BUN (7-17) mg/dL Glucose (74-99) mg/dL POC Glucose (mg/dL) 146 H 147 H 132 H (70-110) mg/dL Total Bilirubin (0.2-1.3) mg/dL AST (14-36) U/L Total Protein (6.3-8.2) g/dL Albumin (3.5-5.0) g/dL 08/19/24 08/19/24 08/19/24 Range/Units 05:08 05:20 05:20 RBC 3.10 L (3.80-5.40) m/uL Hgb 8.8 L (11.4-16.0) gm/dL Hct 28.3 L (34.0-46.0) % ABG pH 7.49 H (7.35-7.45) ABG pCO2 52 H (35-45) mmHg ABG pO2 112 H (83-108) mmHg ABG HCO3 40 H* (21-25) mmol/L ABG Total CO2 41 H (19-24) mmol/L ABG O2 Saturation 98.9 H (94-97) % Sodium 132 L (137-145) mmol/L Chloride 88 L (98-107) mmol/L Carbon Dioxide 37 H (22-30) mmol/L BUN 24 H (7-17) mg/dL Glucose 125 H (74-99) mg/dL POC Glucose (mg/dL) (70-110) mg/dL Total Bilirubin 0.1 L (0.2-1.3) mg/dL AST 41 H (14-36) U/L Total Protein 5.2 L (6.3-8.2) g/dL Albumin 2.2 L (3.5-5.0) g/dL 08/19/24 Range/Units 06:44 RBC (3.80-5.40) m/uL Hgb (11.4-16.0) gm/dL Hct (34.0-46.0) % ABG pH (7.35-7.45) ABG pCO2 (35-45) mmHg ABG pO2 (83-108) mmHg ABG HCO3 (21-25) mmol/L ABG Total CO2 (19-24) mmol/L ABG O2 Saturation (94-97) % Sodium (137-145) mmol/L Chloride (98-107) mmol/L Carbon Dioxide (22-30) mmol/L BUN (7-17) mg/dL Glucose (74-99) mg/dL POC Glucose (mg/dL) 147 H (70-110) mg/dL Total Bilirubin (0.2-1.3) mg/dL AST (14-36) U/L Total Protein (6.3-8.2) g/dL Albumin (3.5-5.0) g/dL Microbiology - Last 24 Hours (Table) 08/17/24 11:25 Gram Stain - Preliminary Abdomen Wound Culture - Preliminary Pseudomonas aeruginosa Presumptive MRSA
--- NOTE | 2024-08-19 09:04 | P.PN ---
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 Patient chest x-ray right lower lobe infiltrate. On today's evaluation that is 08/18/2023, patient has been afebrile, patient is on the ventilator undergoing weaning trial FiO2 is currently stable at 50% no significant purulent secretion through the ET patient did have a diarrhea with the fecal management system but has started admission he worsening output. Patient white count is 12.1 creatinine is 0.57, culture on the feeding tube site currently pending Objective - Vital Signs Vital signs: Vital Signs Temp 97.8 F 08/18/24 08:00 Pulse 74 08/18/24 10:15 Resp 16 08/18/24 10:15 BP 85/57 08/17/24 16:15 Pulse Ox 96 08/18/24 10:15 FiO2 50 08/18/24 08:07 Intake & Output 08/17/24 08/18/24 08/18/24 18:59 06:59 18:59 Intake Total 0321.415 3981.227 368.546 Output Total 3725 3115 1000 Balance -2074.639 -1441.773 -631.454 Weight 54.7 kg Intake: IV 726 701 92 0.9 NS 240 240 80 A Line 36 36 12 Anidulafungin 100 mg In 100 250 Sodium Chloride 0.9% 100 ml @ 84 mls/hr IVPB DAILY @1700 [facility] Rx#:[id number] Cefepime 2 gm In Sodium 100 175 Chloride 0.9% 100 ml @ 25 mls/hr IVPB Q8HR [facility] Rx# :[id number] Vancomycin 1,000 mg In 250 Sodium Chloride 0.9% 250 ml @ 125 mls/hr IVPB Q8H [facility] Rx#:[id number] Intake, IV Titration 330.361 378.227 78.546 Amount Amiodarone 450 mg In 230.282 Dextrose 5% in Water 250 ml @ 0.5 MG/MIN 16.667 mls/hr IV .Q15H [facility] Rx#: [id number] Diltiazem 125 mg In 75 Sodium Chloride 0.9% 100 ml @ 5 MG/HR 5 mls/hr IV .Q24H [facility] Rx#:[id number] Norepinephrine 8 mg In 105.869 25.137 41.698 Sodium Chloride 0.9% 250 ml @ 0.03 MCG/KG/MIN 3. 251 mls/hr IV .Q24H [facility] Rx#:[id number] propofoL 1,000 mg In 149.492 122.808 36.848 Empty Bag 1 bag @ 15 MCG/ KG/MIN 5.04 mls/hr IV . [id number] [facility] Rx#:[id number] Tube Feeding 504 504 168 Other 90 90 30 Output: Urine 3725 3115 1000 Other: Voiding Method Indwelling Catheter Indwelling Catheter Indwelling Catheter ABP, PAP, CO, CI - Last Documented Arterial Blood Pressure 111/50 - Exam GENERAL DESCRIPTION: Elderly female intubated on the vent RESPIRATORY SYSTEM: Unlabored breathing , decreased breath sounds at bases HEART: S1 S2 regular rate and rhythm , ABDOMEN: Soft , no tenderness minimal drainage around the G-tube site EXTREMITIES: No edema feet - Labs CBC & Chem 7: 08/19/24 05:20 08/19/24 05:20 Labs: Abnormal Lab Results - Last 24 Hours (Table) 08/17/24 08/17/24 08/17/24 Range/Units 11:25 11:36 17:38 WBC (3.8-10.6) k/uL RBC (3.80-5.40) m/uL Hgb (11.4-16.0) gm/dL Hct (34.0-46.0) % MCHC (31.0-37.0) g/dL ABG pH (7.35-7.45) ABG pCO2 (35-45) mmHg ABG HCO3 (21-25) mmol/L ABG Total CO2 (19-24) mmol/L ABG O2 Saturation (94-97) % Hemoglobin (11.4-16.0) gm/dL Sodium (137-145) mmol/L Potassium 3.3 L (3.5-5.1) mmol/L Chloride (98-107) mmol/L Carbon Dioxide (22-30) mmol/L BUN (7-17) mg/dL Glucose (74-99) mg/dL POC Glucose (mg/dL) 153 H 138 H (70-110) mg/dL 08/18/24 08/18/24 08/18/24 Range/Units 00:04 04:30 04:30 WBC 12.1 H (3.8-10.6) k/uL RBC 3.28 L (3.80-5.40) m/uL Hgb 9.4 L (11.4-16.0) gm/dL Hct 30.4 L (34.0-46.0) % MCHC 30.9 L (31.0-37.0) g/dL ABG pH (7.35-7.45) ABG pCO2 (35-45) mmHg ABG HCO3 (21-25) mmol/L ABG Total CO2 (19-24) mmol/L ABG O2 Saturation (94-97) % Hemoglobin (11.4-16.0) gm/dL Sodium 134 L (137-145) mmol/L Potassium (3.5-5.1) mmol/L Chloride 87 L (98-107) mmol/L Carbon Dioxide 40 H (22-30) mmol/L BUN 20 H (7-17) mg/dL Glucose 141 H (74-99) mg/dL POC Glucose (mg/dL) 146 H (70-110) mg/dL 08/18/24 08/18/24 Range/Units 05:19 06:26 WBC (3.8-10.6) k/uL RBC (3.80-5.40) m/uL Hgb (11.4-16.0) gm/dL Hct (34.0-46.0) % MCHC (31.0-37.0) g/dL ABG pH 7.46 H (7.35-7.45) ABG pCO2 57 H (35-45) mmHg ABG HCO3 41 H* (21-25) mmol/L ABG Total CO2 43 H (19-24) mmol/L ABG O2 Saturation 98.0 H (94-97) % Hemoglobin 9.3 L (11.4-16.0) gm/dL Sodium (137-145) mmol/L Potassium (3.5-5.1) mmol/L Chloride (98-107) mmol/L Carbon Dioxide (22-30) mmol/L BUN (7-17) mg/dL Glucose (74-99) mg/dL POC Glucose (mg/dL) 146 H (70-110) mg/dL Microbiology - Last 24 Hours (Table) 08/17/24 11:25 Gram Stain - Preliminary Abdomen Assessment and Plan (1) MRSA (methicillin resistant Staphylococcus aureus) infection Current Visit: Yes Status: Acute Code(s): A49.02 - METHICILLIN RESIS STAPH INFECTION, UNSP SITE SNOMED Code(s): 931235164 (2) Allergy to sulfa drugs Current Visit: Yes Status: Acute Code(s): Z88.2 - ALLERGY STATUS TO SULFONAMIDES SNOMED Code(s): 96778426 (3) Failure of outpatient treatment Current Visit: Yes Status: Acute Code(s): Z78.9 - OTHER SPECIFIED HEALTH STATUS SNOMED Code(s): 323188446 (4) Pneumonia Current Visit: Yes Status: Acute Code(s): J18.9 - PNEUMONIA, UNSPECIFIED ORGANISM SNOMED Code(s): 695374266 Plan: 1patient presented hospital with increasing shortness of breath also have a cough bringing up some bloodstained sputum chest x-ray with a left lobe infiltrate patient did have elevated white count 28,000 with recent outpatient sputum culture positive for Streptococcus agalactiae MRSA and Morganella 2-patient repeat cultures are currently growing MRSA and Morganella that is sensitive to Zosyn and cefepime intermediate to ceftriaxone 4patient is afebrile and undergoing weaning trial for possible extubation pa tient to continue with vancomycin pharmacy to dose level is therapeutic and cefepime, at the bedside, question and concerns answered Dictation was produced using [employer] dictation software. please excuse any grammatical, word or spelling errors.
[2024-08-19] MEDS: methylPREDNISolone SOD SUCCI 40 MG/ML 1 ML VIAL IV SCH (09:05)
[2024-08-19 11:41] LABS: Glucose,Whole Blood 179 mg/dL (70-110)
--- NOTE | 2024-08-19 12:28 | XR ---
EXAMINATION TYPE: XR abdomen 2V DATE OF EXAM: 08/19/2024 12:10 PM COMPARISON: 08/13/2024 CLINICAL INDICATION: Female, 64 years old with history of vomiting, drainage around peg and J tube, TECHNIQUE: XR abdomen 2V view(s) obtained. FINDINGS: PEG tube is in the left upper quadrant. No free air is evident. Contrast is within the descending col on region. Drainage catheter appears to be present on the left. Right femoral catheters are present. There is a normal bowel gas pattern. Psoas margins are normal. No organomegaly is present. IMPRESSION: 1. Multiple lines and catheters discussed above. 2. No acute abnormality on plain film abdomen [facility] Giovanny Lazo, , 08/19/2024 12:26 PM
[2024-08-19] MEDS ORDERED: DEXTROSE 50% SYRINGE 50 ML IVP PRN ×2 (12:41)
[2024-08-19] MEDS: INSULIN ASPART (NovoLOG) 100 UNIT/ML VIAL SQ SCH (12:45)
--- NOTE | 2024-08-19 13:38 | P.PN ---
Subjective Progress Note Date: 08/19/24 This is a pleasant 63 years old female with past medical history of multiple medical problems. Patient called her PCP office of Dr. Anderson and talked to his nurse practitioner Lynnette from she sees in the office complaining from little shortness of breath for the last 4 to 5 days with some cough and phlegm Associated with left lateral chest pain about 7/10 that is worse with coughing and deep breath. Her nurse practitioner Lynnette asked her to get sputum sample and resulted back as MRSA so she got a call from the office to head to the emergency room Currently she is endorsing the same symptoms as above However she denies any specific GI/ symptoms no headache dizziness weakness or numbness She quit smoking years ago with no alcohol or illicit drugs as well She is not on oxygen at home She has a known history of mouth cancer s/p left-sided jaw replacement She does not eat but uses a PEG tube for feeding 2 weeks ago she saw her oncologist and Dr. gastelum her chief controller center and she was doing fine Patient has afebrile in the emergency room She was saturating 90s on 4 L oxygen via nasal cannula Blood pressure is soft On admission she has leukocytosis of 28,000. Will BMP and LFTs were unremarkable as well as INR proBNP is 248 Chest x-ray showing left lower lobe infiltrate suspicious for pneumonia Patient was started on IV vancomycin and Zosyn and normal saline with pulmonary and ID team consult 08/07/2023 Patient sitting up in bed looks similar to yesterday, complaining from some pain in her left side of the chest but it looks controlled and patient is not in distress No significant dyspnea or tachypnea, she can go to the bathroom by herself with no exertional dyspnea However her oxygen requirement increased from 4 L up to 10 L today. Blood pressure is borderline and patient says usually her blood pressure on the low side Repeat chest x-ray showing similar left lower lobe infiltrate. Her legs are swollen we will going to check ultrasound of the leg given risk factors although she does not have much symptoms Patient remains on IV fluids normal saline at 130 and IV antibiotics with IV vancomycin and ceftriaxone Patient already on Cymbalta, she is asking to start her BuSpar but she is not sure about the dose, is going to be resumed Senior Maintenance Machinist consult is on for tube feeding 08/08 Patient is mildly tachypneic, not using accessory muscles of breathing, her oxygen requirement increased since yesterday to 10 to 11 L/min She has bilateral leg swelling, mild ultrasound of the leg is negative for DVT. Further workup including sputum culture and blood culture are pending. Blood pressure improved Remains on IV vancomycin and ceftriaxone IV fluid was lower dose 130 down to 75 mL/h Pro- Calcitonin is negative 08/09. Patient seen and examined. Currently on 11 L of oxygen. Patient had her jejunostomy tube not functioning, surgery consulted, they order CT abdominal p jasmina 08/10. Patient seen and examined. Patient went into A-fib with RVR overnight, had worsening respiratory status. Patient had rapid sponsor called and was transferred to ICU. Patient currently on Airvo. Gets short of breath on exertion 08/11 Patient respiratory status got worse and she was moved to the ICU. Currently she is awake alert but requires 60 L/min with 90% of FiO2 Abdomen soft, PEG tube is in place No headache or dizziness WBC is trending down to 16,000, hemoglobin down to two 9.7 Pro- Calcitonin increased to 1.6 and 1 extra dose of MiraLAX is added to her antibiotic Ejection fraction is 65 to 70% CT of the abdomen pelvis showing nonobstructive lesion Patient currently covered with IV vancomycin and ceftriaxone and Eraxis, also patient developed A-fib with RVR and followed by batt packer, started on Eliquis at metoprolol also patient continued on aspirin 08/12 Patient currently remains in the ICU, her breathing function gets worse overnight, yesterday she had to be placed on nonrebreather, and Worsened currently and she was placed on BiPAP in the morning with a setting of 15/10 and FiO2 of 100% Patient herself is awake and alert, she says that her breathing is hard but similar to yesterday. She is saturating about 92% on this current BiPAP setting. She denies chest pain She still mildly tachycardic with heart rate 126 with A-fib and RVR, currently she has been followed by batt packer and getting Cardizem drip at 15 mg/h. Discussed the case with pulmonary service regarding her worsening send respiratory symptoms. Patient may require intubation patient is agreeable however because of her mild surgery will be very difficult situation. Therefore they will try to give her some more time before needed intervention. Repeat chest x-ray from this morning showing worsening pneumonia Yesterday pro- Calcitonin was worsened and her antibiotics were updated per ID team, currently on IV vancomycin, ceftriaxone and Eraxis. Also she is continued on Eliquis for new diagnosis of A-fib. Also she is on aspirin 81 mg, oral 08/13 Yesterday night patient still complaining from respiratory distress had to be intubated and currently she is on mechanical ventilation. Her blood pressure is stable and she is afebrile. Labs showing worsening leukocytosis to 21,000, hemoglobin slightly less than 10.3 Patient remains on broad-spectrum antibiotics with IV vancomycin,Ceftriaxone and Eraxis She is also on amiodarone drip, Eliquis 5 mg twice daily and aspirin 81 mg. 08/14 Patient remains in the ICU intubated and sedated. Her FiO2 today was 50% She is afebrile and rest of vitals look stable Leukocytosis is also improving down to 14,000, hemoglobin stable at 9.5. Patient currently covered with Eliquis and metoprolol and digoxin x 1 per Cardi ologist She remains on IV vancomycin, Zosyn and Eraxis Abdominal wound is closed with no drains Rios catheter in place 08/15. Patient seen and examined. Currently intubated. Family at the bedside, questions answered 08/16. Patient seen and examined. Blood work done this morning showed WBC 10.7, hemoglobin 9.2, sodium 130s, potassium 3.3 BUN 9, creatinine 0.43. Chest x-ray done this morning showed worsening infiltrates. Lasix dose has been changed to 40 mg 3 times daily. . Patient seen and examined. Blood work done this morning showed WBC 11.2, hemoglobin 9.6, platelet count 383, sodium 137, potassium 3.7, BUN 15, creatinine 0.50. Patient is -1993 mL over last 24 hours. Patient has been switched to IV Lasix twice a day with Diamox. 08/19. Patient seen examined. Patient went into A-fib with RVR this morning, currently on amiodarone drip.Blood work done this morning showed WBC 10.1, hemoglobin 8.8, sodium 132, potassium 3.6, BUN 24, creatinine 0.65 REVIEW OF SYSTEMS: Review of system cannot be obtained as patient is intubated PHYSICAL EXAMINATION: GENERAL: The patient is intubated HEENT: Pupils are round and equally reacting to light. EOMI. No scleral icterus. No conjunctival pallor. Normocephalic, atraumatic. No pharyngeal erythema. No thyromegaly. CARDIOVASCULAR: S1 and S2 present. No murmurs, rubs, or gallops. Irregular rate and rhythm PULMONARY coarse breath sounds bilaterally, bilateral crackles audible ABDOMEN: Soft, nontender, nondistended, normoactive bowel sounds. No palpable organomegaly. Jejunostomy tube seen MUSCULOSKELETAL: No joint swelling or deformity. EXTREMITIES: No cyanosis, clubbing, 1+ pitting edema of lower extremities bilaterally NEUROLOGICAL: Intubated SKIN: No rashes. Assessment and plan Bilateral pneumonia putum sample obtained 08/01 and again on August 06, 2024 positive for MRSA, Morganella, and group B strep and Rosa Sepsis secondary to above Acute hypoxic respiratory failure secondary to above Mild calorie protein malnutrition History of mouth cancer , currently she uses PEG tube for nutrition COPD, not in acute acute issue History of pneumonia not on anticoagulation History of seizure Monitor vital signs Monitor CBC Monitor CMP Continue telemetry monitoring Aggressive bronchopulmonary hygiene Continue vent management Follow-up on blood cultures Continue breathing treatment Continue amiodarone drip, Lopressor, Eliquis Strict I's and O's, daily weights, Lasix 20 mg every 8 Continue vancomycin, cefepime, Eraxis Continue tube feeding Continue breathing treatments ID following Pulmonology following Cardiology following Labs and medication were reviewed.. Continue same treatment. Continue with symptomatic treatment. Resume home medication. Monitor labs and vitals. DVT and GI prophylaxis. Further recommendations as per clinical course of the patient Dictation was produced using [employer] dictation software. please excuse any grammatical, word or spelling errors. Objective - Vital Signs Vital signs: Vital Signs Temp 97.6 F 08/19/24 12:00 Pulse 137 H 08/19/24 12:00 Resp 23 08/19/24 12:00 BP 85/57 08/17/24 16:15 Pulse Ox 95 08/19/24 12:00 FiO2 45 08/19/24 12:00 Intake & Output 08/18/24 08/19/24 08/19/24 18:59 06:59 18:59 Intake Total 5040.009 3031.531 724.233 Output Total 6495 1650 955 Balance -649.681 -520.469 -230.767 Weight 54.7 kg 58.1 kg Intake: IV 376 576 238 0.9 NS 240 190 120 A Line 36 36 18 Cefepime 2 gm In Sodium 100 100 100 Chloride 0.9% 100 ml @ 25 mls/hr IVPB Q8HR [facility] Rx# :[id number] Vancomycin 1,000 mg In 250 Sodium Chloride 0.9% 250 ml @ 125 mls/hr IVPB Q8H [facility] Rx#:[id number] Intake, IV Titration 361.319 43.531 256.233 Amount Norepinephrine 8 mg In 68.535 3.631 6.233 Sodium Chloride 0.9% 250 ml @ 0.03 MCG/KG/MIN 3. 251 mls/hr IV .Q24H [facility] Rx#:[id number] Vancomycin 1,000 mg In 250 250 Sodium Chloride 0.9% 250 ml @ 125 mls/hr IVPB Q12H [facility] Rx#:[id number] propofoL 1,000 mg In 42.784 39.9 Empty Bag 1 bag @ 15 MCG/ KG/MIN 5.04 mls/hr IV . [id number] [facility] Rx#:[id number] Tube Feeding 448 420 140 Other 90 90 90 Output: Urine 1925 1650 955 Other: Voiding Method Indwelling Catheter Indwelling Catheter Indwelling Catheter ABP, PAP, CO, CI - Last Documented Arterial Blood Pressure 124/82 - Labs CBC & Chem 7: 08/19/24 05:20 08/19/24 05:20 Labs: Abnormal Lab Results - Last 24 Hours (Table) 08/18/24 08/18/24 08/19/24 Range/Units 17:32 23:40 05:08 RBC (3.80-5.40) m/uL Hgb (11.4-16.0) gm/dL Hct (34.0-46.0) % ABG pH 7.49 H (7.35-7.45) ABG pCO2 52 H (35-45) mmHg ABG pO2 112 H (83-108) mmHg ABG HCO3 40 H* (21-25) mmol/L ABG Total CO2 41 H (19-24) mmol/L ABG O2 Saturation 98.9 H (94-97) % Sodium (137-145) mmol/L Chloride (98-107) mmol/L Carbon Dioxide (22-30) mmol/L BUN (7-17) mg/dL Glucose (74-99) mg/dL POC Glucose (mg/dL) 147 H 132 H (70-110) mg/dL Total Bilirubin (0.2-1.3) mg/dL AST (14-36) U/L Total Protein (6.3-8.2) g/dL Albumin (3.5-5.0) g/dL 08/19/24 08/19/24 08/19/24 Range/Units 05:20 05:20 06:44 RBC 3.10 L (3.80-5.40) m/uL Hgb 8.8 L (11.4-16.0) gm/dL Hct 28.3 L (34.0-46.0) % ABG pH (7.35-7.45) ABG pCO2 (35-45) mmHg ABG pO2 (83-108) mmHg ABG HCO3 (21-25) mmol/L ABG Total CO2 (19-24) mmol/L ABG O2 Saturation (94-97) % Sodium 132 L (137-145) mmol/L Chloride 88 L (98-107) mmol/L Carbon Dioxide 37 H (22-30) mmol/L BUN 24 H (7-17) mg/dL Glucose 125 H (74-99) mg/dL POC Glucose (mg/dL) 147 H (70-110) mg/dL Total Bilirubin 0.1 L (0.2-1.3) mg/dL AST 41 H (14-36) U/L Total Protein 5.2 L (6.3-8.2) g/dL Albumin 2.2 L (3.5-5.0) g/dL 08/19/24 Range/Units 11:40 RBC (3.80-5.40) m/uL Hgb (11.4-16.0) gm/dL Hct (34.0-46.0) % ABG pH (7.35-7.45) ABG pCO2 (35-45) mmHg ABG pO2 (83-108) mmHg ABG HCO3 (21-25) mmol/L ABG Total CO2 (19-24) mmol/L ABG O2 Saturation (94-97) % Sodium (137-145) mmol/L Chloride (98-107) mmol/L Carbon Dioxide (22-30) mmol/L BUN (7-17) mg/dL Glucose (74-99) mg/dL POC Glucose (mg/dL) 179 H (70-110) mg/dL Total Bilirubin (0.2-1.3) mg/dL AST (14-36) U/L Total Protein (6.3-8.2) g/dL Albumin (3.5-5.0) g/dL Microbiology - Last 24 Hours (Table) 08/17/24 11:25 Gram Stain - Preliminary Abdomen Wound Culture - Preliminary Pseudomonas aeruginosa Presumptive MRSA
--- NOTE | 2024-08-19 15:08 | P.PN ---
Subjective Progress Note Date: 08/19/24 SURGICAL PROGRESS NOTE CHIEF COMPLAINT: Respiratory failure HISTORY OF PRESENT ILLNESS: Patient remains intubated on mechanical ventilation in the ICU. Patient had episode of vomiting this morning tube feeds were placed on hold. Also she has had drainage around the PEG tube and J-tube. Per nurse initially it appeared to be tube feeds that were draining from the J-tube. And then when she gave the patient medication that was liquid and orange in color there was orange drainage around both the PEG tube and J-tube. Patient has an FMS in place but per nursing staff the stool output has been less. PHYSICAL EXAM: VITAL SIGNS: Reviewed. GENERAL: Intubated ABDOMEN: Soft. Nondistended. Nontender. PEG tube site and J-tube site with orange drainage noted on the dressings of both tubes ASSESSMENT: 1. Clogged jejunostomy tube and nausea status post J-tube exchange at bedside 2. Aspiration pneumonia 3. History of tongue and neck cancer status post chemo and radiation and reconstructive surgery PLAN: -Agree with holding tube feeds. Also hold on putting medications down the PEG tube. -Abdominal x-ray ordered because of vomiting. X-ray reports no acute abnormality. Reports normal bowel gas pattern. -Continue to monitor -Further recommendations forthcoming per surgeon Physician Senior Label Specialist note has been reviewed by physician. Signing provider agrees with the documented findings, assessment, and plan of care. Attestation Patient seen and examined at bedside. Patient began having some orange drainage at and around J-tube site. Per nursing, this was after patient was given orange potassium supplement. Currently, there is no further drainage at the site. Tube feeds were held at the time and x-ray was ordered. No obvious abnormal findings on x-ray. We will restart tube feeds at 10 cc for the next 24 hours and further evaluate. Continue to use G-tube for medication introduction. Kaitlynn Sanchez DO Objective - Vital Signs Vital signs: Vital Signs Temp 98.3 F 08/19/24 08:00 Pulse 135 H 08/19/24 11:30 Resp 16 08/19/24 11:30 BP 85/57 08/17/24 16:15 Pulse Ox 96 08/19/24 11:30 FiO2 45 08/19/24 10:58 Intake & Output 08/18/24 08/19/24 08/19/24 18:59 06:59 18:59 Intake Total 4692.859 0132.531 451.233 Output Total 1924 1650 915 Balance -649.681 -520.469 -463.767 Weight 54.7 kg 58.1 kg Intake: IV 376 576 215 0.9 NS 240 190 100 A Line 36 36 15 Cefepime 2 gm In Sodium 100 100 100 Chloride 0.9% 100 ml @ 25 mls/hr IVPB Q8HR [facility] Rx# :[id number] Vancomycin 1,000 mg In 250 Sodium Chloride 0.9% 250 ml @ 125 mls/hr IVPB Q8H [facility] Rx#:[id number] Intake, IV Titration 361.319 43.531 6.233 Amount Norepinephrine 8 mg In 68.535 3.631 6.233 Sodium Chloride 0.9% 250 ml @ 0.03 MCG/KG/MIN 3. 251 mls/hr IV .Q24H [facility] Rx#:[id number] Vancomycin 1,000 mg In 250 Sodium Chloride 0.9% 250 ml @ 125 mls/hr IVPB Q12H [facility] Rx#:[id number] propofoL 1,000 mg In 42.784 39.9 Empty Bag 1 bag @ 15 MCG/ KG/MIN 5.04 mls/hr IV . [id number] [facility] Rx#:[id number] Tube Feeding 448 420 140 Other 90 90 90 Output: Urine 1924 1649 915 Other: Voiding Method Indwelling Catheter Indwelling Catheter Indwelling Catheter ABP, PAP, CO, CI - Last Documented Arterial Blood Pressure 105/64 - Labs CBC & Chem 7: 08/19/24 05:20 08/19/24 05:20 Labs: Abnormal Lab Results - Last 24 Hours (Table) 08/18/24 08/18/24 08/18/24 Range/Units 11:52 17:32 23:40 RBC (3.80-5.40) m/uL Hgb (11.4-16.0) gm/dL Hct (34.0-46.0) % ABG pH (7.35-7.45) ABG pCO2 (35-45) mmHg ABG pO2 (83-108) mmHg ABG HCO3 (21-25) mmol/L ABG Total CO2 (19-24) mmol/L ABG O2 Saturation (94-97) % Sodium (137-145) mmol/L Chloride (98-107) mmol/L Carbon Dioxide (22-30) mmol/L BUN (7-17) mg/dL Glucose (74-99) mg/dL POC Glucose (mg/dL) 146 H 147 H 132 H (70-110) mg/dL Total Bilirubin (0.2-1.3) mg/dL AST (14-36) U/L Total Protein (6.3-8.2) g/dL Albumin (3.5-5.0) g/dL 08/19/24 08/19/24 08/19/24 Range/Units 05:08 05:20 05:20 RBC 3.10 L (3.80-5.40) m/uL Hgb 8.8 L (11.4-16.0) gm/dL Hct 28.3 L (34.0-46.0) % ABG pH 7.49 H (7.35-7.45) ABG pCO2 52 H (35-45) mmHg ABG pO2 112 H (83-108) mmHg ABG HCO3 40 H* (21-25) mmol/L ABG Total CO2 41 H (19-24) mmol/L ABG O2 Saturation 98.9 H (94-97) % Sodium 132 L (137-145) mmol/L Chloride 88 L (98-107) mmol/L Carbon Dioxide 37 H (22-30) mmol/L BUN 24 H (7-17) mg/dL Glucose 125 H (74-99) mg/dL POC Glucose (mg/dL) (70-110) mg/dL Total Bilirubin 0.1 L (0.2-1.3) mg/dL AST 41 H (14-36) U/L Total Protein 5.2 L (6.3-8.2) g/dL Albumin 2.2 L (3.5-5.0) g/dL 08/19/24 08/19/24 Range/Units 06:44 11:40 RBC (3.80-5.40) m/uL Hgb (11.4-16.0) gm/dL Hct (34.0-46.0) % ABG pH (7.35-7.45) ABG pCO2 (35-45) mmHg ABG pO2 (83-108) mmHg ABG HCO3 (21-25) mmol/L ABG Total CO2 (19-24) mmol/L ABG O2 Saturation (94-97) % Sodium (137-145) mmol/L Chloride (98-107) mmol/L Carbon Dioxide (22-30) mmol/L BUN (7-17) mg/dL Glucose (74-99) mg/dL POC Glucose (mg/dL) 147 H 179 H (70-110) mg/dL Total Bilirubin (0.2-1.3) mg/dL AST (14-36) U/L Total Protein (6.3-8.2) g/dL Albumin (3.5-5.0) g/dL Microbiology - Last 24 Hours (Table) 08/17/24 11:25 Gram Stain - Preliminary Abdomen Wound Culture - Preliminary Pseudomonas aeruginosa Presumptive MRSA
[2024-08-19] MEDS: POTASSIUM CHLORIDE 10 MEQ in WATER FOR INJECTION 1 100ML.BAG IVPB SCH (17:39)
[2024-08-19 17:55] LABS: Glucose,Whole Blood 195 mg/dL (70-110)
[2024-08-19 23:14] LABS: Glucose,Whole Blood 182 mg/dL (70-110)
[2024-08-19] MEDS: VANCOMYCIN TROUGH DUE 1 EACH MISC MISCELLANE ONE (23:15)
[2024-08-20 04:49] LABS: ABG HCO3 38 mmol/L (21-25); ABG Oxygen Saturation 94.8 % (94-97); ABG PCO2 48 mmHg (35-45); ABG PH 7.51 (7.35-7.45); ABG PO2 72 mmHg (83-108); ABG TCO2 39 mmol/L (19-24)
[2024-08-20 04:53] LABS: Allen Test Performed? no
[2024-08-20 05:24] LABS: Glucose,Whole Blood 171 mg/dL (70-110)
[2024-08-20 05:40] LABS: Basophils % (A) 0 %; Eosinophils % (A) 0 %; HCT 30.5 % (34.0-46.0); HGB 9.5 gm/dL (11.4-16.0); Hypochromasia Moderate; Lymphocytes # (A) 0.8 k/uL (1.0-4.8); Lymphocytes % (A) 7 %; MCH 28.3 pg (25.0-35.0); MCHC 31.3 g/dL (31.0-37.0); MCV 90.5 fL (80.0-100.0); Mean Platelet Volume 9.6; Monocytes # (A) 0.3 k/uL (0-1.0); Monocytes % (A) 3 %; Neutrophils # (A) 10.4 k/uL (1.3-7.7); Neutrophils % (A) 90 %; Platelet Count 509 k/uL (150-450); RBC 3.37 m/uL (3.80-5.40); RDW 14.8 % (11.5-15.5); WBC 11.6 k/uL (3.8-10.6)
[2024-08-20 06:22] LABS: African American GFR (CKD) >90 (>60 ml/min/1.73 sqM); Anion Gap 1 mmol/L; Blood Urea Nitrogen 31 mg/dL (7-17); Calcium 8.7 mg/dL (8.4-10.2); Carbon Dioxide 39 mmol/L (22-30); Chloride 93 mmol/L (98-107); Glucose 164 mg/dL (74-99); Non-African American GFR(CKD) >90 (>60 ml/min/1.73 sqM); Potassium 3.6 mmol/L (3.5-5.1); Sodium 133 mmol/L (137-145)
--- NOTE | 2024-08-20 07:36 | P.PN ---
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 Patient chest x-ray right lower lobe infiltrate. On today's evaluation that is 08/19/2023, Patient is afebrile this morning patient remains to be debated on the vent FiO2 is currently at 45% patient undergoing weaning trial no significant purulent secretion through the ET or any worsening diarrhea reported by the nursing staff still have the fecal management system. There have been some drainage around the tube feeding site, tube feed has been on hold The patient white count is 10.1 creatinine 0.65 culture on the PEG tube site did grew MRSA Pseudomonas with sensitivities pending Objective - Vital Signs Vital signs: Vital Signs Temp 97.2 F L 08/19/24 16:30 Pulse 109 H 08/19/24 20:11 Resp 16 08/19/24 19:00 BP 85/57 08/17/24 16:15 Pulse Ox 95 08/19/24 19:00 FiO2 45 08/19/24 20:06 Intake & Output 08/19/24 08/19/24 08/20/24 06:59 18:59 06:59 Intake Total 4373.347 7584.919 134.246 Output Total 1650 1950 45 Balance -520.469 -687.081 89.246 Weight 58.1 kg Intake: IV 576 576 23 0.9 NS 190 240 20 A Line 36 36 3 Anidulafungin 100 mg In 100 Sodium Chloride 0.9% 100 ml @ 84 mls/hr IVPB DAILY @1700 [facility] Rx#:[id number] Cefepime 2 gm In Sodium 100 200 Chloride 0.9% 100 ml @ 25 mls/hr IVPB Q8HR [facility] Rx# :[id number] Vancomycin 1,000 mg In 250 Sodium Chloride 0.9% 250 ml @ 125 mls/hr IVPB Q8H [facility] Rx#:[id number] Intake, IV Titration 43.531 356.919 101.246 Amount Norepinephrine 8 mg In 3.631 6.919 1.246 Sodium Chloride 0.9% 250 ml @ 0.03 MCG/KG/MIN 3. 251 mls/hr IV .Q24H [facility] Rx#:[id number] Potassium Chloride 10 meq 100 100 In Water For Injection 1 100ml.bag @ 100 mls/hr IVPB Q1H [facility] Rx#: [id number] Vancomycin 1,000 mg In 250 Sodium Chloride 0.9% 250 ml @ 125 mls/hr IVPB Q12H [facility] Rx#:[id number] propofoL 1,000 mg In 39.9 Empty Bag 1 bag @ 15 MCG/ KG/MIN 5.04 mls/hr IV . [id number] [facility] Rx#:[id number] Tube Feeding 420 180 10 Other 90 150 Output: Urine 1650 1950 45 Other: Voiding Method Indwelling Catheter Indwelling Catheter ABP, PAP, CO, CI - Last Documented Arterial Blood Pressure 91/52 - Exam GENERAL DESCRIPTION: Elderly female intubated on the vent RESPIRATORY SYSTEM: Unlabored breathing , decreased breath sounds at bases HEART: S1 S2 regular rate and rhythm , ABDOMEN: Soft , no tenderness minimal drainage around the G-tube site EXTREMITIES: No edema feet - Labs CBC & Chem 7: 08/20/24 05:29 08/20/24 05:29 Labs: Abnormal Lab Results - Last 24 Hours (Table) 08/18/24 08/19/24 08/19/24 Range/Units 23:40 05:08 05:20 RBC 3.10 L (3.80-5.40) m/uL Hgb 8.8 L (11.4-16.0) gm/dL Hct 28.3 L (34.0-46.0) % ABG pH 7.49 H (7.35-7.45) ABG pCO2 52 H (35-45) mmHg ABG pO2 112 H (83-108) mmHg ABG HCO3 40 H* (21-25) mmol/L ABG Total CO2 41 H (19-24) mmol/L ABG O2 Saturation 98.9 H (94-97) % Sodium (137-145) mmol/L Chloride (98-107) mmol/L Carbon Dioxide (22-30) mmol/L BUN (7-17) mg/dL Glucose (74-99) mg/dL POC Glucose (mg/dL) 132 H (70-110) mg/dL Total Bilirubin (0.2-1.3) mg/dL AST (14-36) U/L Total Protein (6.3-8.2) g/dL Albumin (3.5-5.0) g/dL 08/19/24 08/19/24 08/19/24 Range/Units 05:20 06:44 11:40 RBC (3.80-5.40) m/uL Hgb (11.4-16.0) gm/dL Hct (34.0-46.0) % ABG pH (7.35-7.45) ABG pCO2 (35-45) mmHg ABG pO2 (83-108) mmHg ABG HCO3 (21-25) mmol/L ABG Total CO2 (19-24) mmol/L ABG O2 Saturation (94-97) % Sodium 132 L (137-145) mmol/L Chloride 88 L (98-107) mmol/L Carbon Dioxide 37 H (22-30) mmol/L BUN 24 H (7-17) mg/dL Glucose 125 H (74-99) mg/dL POC Glucose (mg/dL) 147 H 179 H (70-110) mg/dL Total Bilirubin 0.1 L (0.2-1.3) mg/dL AST 41 H (14-36) U/L Total Protein 5.2 L (6.3-8.2) g/dL Albumin 2.2 L (3.5-5.0) g/dL 08/19/24 Range/Units 17:53 RBC (3.80-5.40) m/uL Hgb (11.4-16.0) gm/dL Hct (34.0-46.0) % ABG pH (7.35-7.45) ABG pCO2 (35-45) mmHg ABG pO2 (83-108) mmHg ABG HCO3 (21-25) mmol/L ABG Total CO2 (19-24) mmol/L ABG O2 Saturation (94-97) % Sodium (137-145) mmol/L Chloride (98-107) mmol/L Carbon Dioxide (22-30) mmol/L BUN (7-17) mg/dL Glucose (74-99) mg/dL POC Glucose (mg/dL) 195 H (70-110) mg/dL Total Bilirubin (0.2-1.3) mg/dL AST (14-36) U/L Total Protein (6.3-8.2) g/dL Albumin (3.5-5.0) g/dL Microbiology - Last 24 Hours (Table) 08/17/24 11:25 Anaerobic Culture - Preliminary Abdomen 08/17/24 11:25 Gram Stain - Preliminary Abdomen Wound Culture - Preliminary Pseudomonas aeruginosa Presumptive MRSA Gram Neg Bacilli Yeast species Assessment and Plan (1) MRSA (methicillin resistant Staphylococcus aureus) infection Current Visit: Yes Status: Acute Code(s): A49.02 - METHICILLIN RESIS STAPH INFECTION, UNSP SITE SNOMED Code(s): 766543796 (2) Allergy to sulfa drugs Current Visit: Yes Status: Acute Code(s): Z88.2 - ALLERGY STATUS TO SULFONAMIDES SNOMED Code(s): 60859339 (3) Failure of outpatient treatment Current Visit: Yes Status: Acute Code(s): Z78.9 - OTHER SPECIFIED HEALTH STATUS SNOMED Code(s): 524073438 (4) Pneumonia Current Visit: Yes Status: Acute Code(s): J18.9 - PNEUMONIA, UNSPECIFIED ORG ANISM SNOMED Code(s): 695970871 Plan: 1patient presented hospital with increasing shortness of breath also have a cough bringing up some bloodstained sputum chest x-ray with a left lobe infiltrate patient did have elevated white count 28,000 with recent outpatient sputum culture positive for Streptococcus agalactiae MRSA and Morganella 2-patient repeat cultures are currently growing MRSA and Morganella that is sensitive to Zosyn and cefepime 4patient is afebrile and white count has normalized continue with vancomycin pharmacy to dose and cefepime, and monitor clinical course closely at the bedside, question and concerns answered Dictation was produced using [employer] software. please excuse any grammatical, word or spelling errors.
--- NOTE | 2024-08-20 08:14 | XR ---
EXAMINATION TYPE: XR chest 1V portable DATE OF EXAM: 08/20/2024 5:18 AM COMPARISON: 08/19/2024 CLINICAL INDICATION: Female, 64 years old with history of mechanical ventilation, difficulty breathin g TECHNIQUE: XR chest 1V portable view(s) obtained. FINDINGS: The heart size is mildly prominent. The pulmonary vasculature is prominent. Mild scattered infiltrate is present bilaterally. Small left and minimal right pleural effusions are present. Findings have improved from comparison Endotracheal tube tip is 3.5 cm above the myranda IMPRESSION: 1. Clinical correlation recommended for congestive heart failure slightly improved from comparison [facility], , 08/20/2024 8:12 AM
--- NOTE | 2024-08-20 09:00 | P.PN ---
Subjective Progress Note Date: 08/20/24 HPI: This is a 63-year-old lady with multiple medical problems including radical neck dissection for oral cancer and reconstructive surgery. She has a PEG tube. She has history of recurrent aspiration pneumonia. She is here with multiple comorbid conditions including pneumonia infection around the site of PEG tube. She also has atrial fibrillation. She is currently on a ventilator. She was in a sinus rhythm on Sunday, but she is back in atrial fibrillation relatively stable hemodynamically. She is on a ventilator cannot assess neurological status. I started her I am amiodarone drip yesterday at 0.5 mg rate. We will continue the same for now. Prognosis remains poor overall. No other new suggestions. PHYSICIAL EXAM: Hemodynamically stable vitals are stable S1-S2 with irregularity rhythm short systolic murmur ventilator assisted breath sounds abdomen is soft lower extremities reveal diminished pulses Central nervous system not assessed. IMPRESSION: 1. Aspiration pneumonia and respiratory failure. 2. Paroxysmal atrial fibrillation currently in A-fib with a moderate rate. 3. History of head and neck cancer s/p surgery and reconstructive surgery. 4. History of DVT. 5.. RECOMMENDATIONS: Continue IV amiodarone drip since I do not believe the PEG tube administration is helping much. Also correct the hypokalemia as well. Prognosis remains poor. No new suggestions Objective - Vital Signs Vital signs: Vital Signs Temp 98.1 F 08/20/24 04:00 Pulse 99 08/20/24 08:05 Resp 16 08/20/24 07:00 BP 85/57 08/17/24 16:15 Pulse Ox 93 L 08/20/24 07:00 FiO2 45 08/20/24 08:04 Intake & Output 08/19/24 08/20/24 08/20/24 18:59 06:59 18:59 Intake Total 3153.106 6049.485 33 Output Total 1950 1395 100 Balance -687.081 -70.515 -67 Weight 55.6 kg Intake: IV 576 376 23 0.9 NS 240 240 20 A Line 36 36 3 Anidulafungin 100 mg In 100 Sodium Chloride 0.9% 100 ml @ 84 mls/hr IVPB DAILY @1700 [facility] Rx#:[id number] Cefepime 2 gm In Sodium 200 100 Chloride 0.9% 100 ml @ 25 mls/hr IVPB Q8HR [facility] Rx# :[id number] Intake, IV Titration 356.919 738.485 Amount Amiodarone 450 mg In 249.172 Dextrose 5% in Water 250 ml @ 0.5 MG/MIN 16.667 mls/hr IV .Q15H [facility] Rx#: [id number] Norepinephrine 8 mg In 6.919 39.313 Sodium Chloride 0.9% 250 ml @ 0.03 MCG/KG/MIN 3. 251 mls/hr IV .Q24H [facility] Rx#:[id number] Potassium Chloride 10 meq 100 100 In Water For Injection 1 100ml.bag @ 100 mls/hr IVPB Q1H [facility] Rx#: [id number] Vancomycin 1,000 mg In 250 250 Sodium Chloride 0.9% 250 ml @ 125 mls/hr IVPB Q12H [facility] Rx#:[id number] propofoL 1,000 mg In 100 Empty Bag 1 bag @ 15 MCG/ KG/MIN 5.04 mls/hr IV . [id number] [facility] Rx#:[id number] Tube Feeding 180 120 10 Other 150 90 Output: Urine 1950 1395 100 Other: Voiding Method Indwelling Catheter Indwelling Catheter ABP, PAP, CO, CI - Last Documented Arterial Blood Pressure 103/55 - Labs CBC & Chem 7: 08/20/24 05:29 08/20/24 05:29 Labs: Abnormal Lab Results - Last 24 Hours (Table) 08/19/24 08/19/24 08/19/24 Range/Units 11:40 17:53 23:13 WBC (3.8-10.6) k/uL RBC (3.80-5.40) m/uL Hgb (11.4-16.0) gm/dL Hct (34.0-46.0) % Plt Count (150-450) k/uL Neutrophils # (1.3-7.7) k/uL Lymphocytes # (1.0-4.8) k/uL ABG pH (7.35-7.45) ABG pCO2 (35-45) mmHg ABG pO2 (83-108) mmHg ABG HCO3 (21-25) mmol/L ABG Total CO2 (19-24) mmol/L Hemoglobin (11.4-16.0) gm/dL Sodium (137-145) mmol/L Chloride (98-107) mmol/L Carbon Dioxide (22-30) mmol/L BUN (7-17) mg/dL Glucose (74-99) mg/dL POC Glucose (mg/dL) 179 H 195 H 182 H (70-110) mg/dL 08/20/24 08/20/24 08/20/24 Range/Units 04:39 05:22 05:29 WBC 11.6 H (3.8-10.6) k/uL RBC 3.37 L (3.80-5.40) m/uL Hgb 9.5 L (11.4-16.0) gm/dL Hct 30.5 L (34.0-46.0) % Plt Count 509 H (150-450) k/uL Neutrophils # 10.4 H (1.3-7.7) k/uL Lymphocytes # 0.8 L (1.0-4.8) k/uL ABG pH 7.51 H (7.35-7.45) ABG pCO2 48 H (35-45) mmHg ABG pO2 72 L (83-108) mmHg ABG HCO3 38 H (21-25) mmol/L ABG Total CO2 39 H (19-24) mmol/L Hemoglobin 9.3 L (11.4-16.0) gm/dL Sodium (137-145) mmol/L Chloride (98-107) mmol/L Carbon Dioxide (22-30) mmol/L BUN (7-17) mg/dL Glucose (74-99) mg/dL POC Glucose (mg/dL) 171 H (70-110) mg/dL 08/20/24 Range/Units 05:29 WBC (3.8-10.6) k/uL RBC (3.80-5.40) m/uL Hgb (11.4-16.0) gm/dL Hct (34.0-46.0) % Plt Count (150-450) k/uL Neutrophils # (1.3-7.7) k/uL Lymphocytes # (1.0-4.8) k/uL ABG pH (7.35-7.45) ABG pCO2 (35-45) mmHg ABG pO2 (83-108) mmHg ABG HCO3 (21-25) mmol/L ABG Total CO2 (19-24) mmol/L Hemoglobin (11.4-16.0) gm/dL Sodium 133 L (137-145) mmol/L Chloride 93 L (98-107) mmol/L Carbon Dioxide 39 H (22-30) mmol/L BUN 31 H (7-17) mg/dL Glucose 164 H (74-99) mg/dL POC Glucose (mg/dL) (70-110) mg/dL Microbiology - Last 24 Hours (Table) 08/17/24 11:25 Anaerobic Culture - Preliminary Abdomen 08/17/24 11:25 Gram Stain - Preliminary Abdomen Wound Culture - Preliminary Pseudomonas aeruginosa Presumptive MRSA Gram Neg Bacilli Yeast species
[2024-08-20] MEDS: POTASSIUM CHLORIDE 20 MEQ in WATER FOR INJECTION 1 100ML.BAG IVPB ONE (09:32)
[2024-08-20] MEDS: DEXTROSE 5% IN WATER 100 ML with AMIODARONE 150 MG IV ONE (11:26)
[2024-08-20] MEDS: DILTIAZEM DRIP BOLUS FROM BAG 1 MG SOLN IV ONE (11:31)
[2024-08-20] MEDS: DILTIAZEM 125 MG in SODIUM CHLORIDE 0.9% 100 ML IV SCH (11:32)
[2024-08-20 12:11] LABS: Glucose,Whole Blood 168 mg/dL (70-110)
--- NOTE | 2024-08-20 13:14 | XR ---
EXAMINATION TYPE: XR KUB DATE OF EXAM: 08/20/2024 1:04 PM COMPARISON: 08/13/2024 CLINICAL INDICATION: Female, 64 years old with history of leaking at peg tube site, TECHNIQUE: XR KUB view(s) obtained. FINDINGS: There is contrast within the stomach. No extravasation of contrast is identified. Catheter is present left lower abdomen. A catheter is on the right tip in the iliac region. Psoas margins are normal. No organomegaly is present. IMPRESSION: 1. No extravasation post contrast through the PEG tube. This appears to be within the stomach. [facility], , 08/20/2024 1:11 PM
[2024-08-20] MEDS: MORPHINE SULFATE 2 MG/ML SYRINGE IVP PRN (13:22)
--- NOTE | 2024-08-20 14:01 | P.PN ---
Subjective Progress Note Date: 08/20/24 This is a pleasant 63 years old female with past medical history of multiple medical problems. Patient called her PCP office of Dr. Anderson and talked to his nurse practitioner Lynnette from she sees in the office complaining from little shortness of breath for the last 4 to 5 days with some cough and phlegm Associated with left lateral chest pain about 7/10 that is worse with coughing and deep breath. Her nurse practitioner Lynnette asked her to get sputum sample and resulted back as MRSA so she got a call from the office to head to the emergency room Currently she is endorsing the same symptoms as above However she denies any specific GI/ symptoms no headache dizziness weakness or numbness She quit smoking years ago with no alcohol or illicit drugs as well She is not on oxygen at home She has a known history of mouth cancer s/p left-sided jaw replacement She does not eat but uses a PEG tube for feeding 2 weeks ago she saw her oncologist and Dr. gastelum her sizing end bander and she was doing fine Patient has afebrile in the emergency room She was saturating 90s on 4 L oxygen via nasal cannula Blood pressure is soft On admission she has leukocytosis of 28,000. Will BMP and LFTs were unremarkable as well as INR proBNP is 248 Chest x-ray showing left lower lobe infiltrate suspicious for pneumonia Patient was started on IV vancomycin and Zosyn and normal saline with pulmonary and ID team consult 08/07/2023 Patient sitting up in bed looks similar to yesterday, complaining from some pain in her left side of the chest but it looks controlled and patient is not in distress No significant dyspnea or tachypnea, she can go to the bathroom by herself with no exertional dyspnea However her oxygen requirement increased from 4 L up to 10 L today. Blood pressure is borderline and patient says usually her blood pressure on the low side Repeat chest x-ray showing similar left lower lobe infiltrate. Her legs are swollen we will going to check ultrasound of the leg given risk factors although she does not have much symptoms Patient remains on IV fluids normal saline at 130 and IV antibiotics with IV vancomycin and ceftriaxone Patient already on Cymbalta, she is asking to start her BuSpar but she is not sure about the dose, is going to be resumed Director Of Extension Work consult is on for tube feeding 08/08 Patient is mildly tachypneic, not using accessory muscles of breathing, her oxygen requirement increased since yesterday to 10 to 11 L/min She has bilateral leg swelling, mild ultrasound of the leg is negative for DVT. Further workup including sputum culture and blood culture are pending. Blood pressure improved Remains on IV vancomycin and ceftriaxone IV fluid was lower dose 130 down to 75 mL/h Pro- Calcitonin is negative 08/09. Patient seen and examined. Currently on 11 L of oxygen. Patient had her jejunostomy tube not functioning, surgery consulted, they order CT abdominal p jasmina 08/10. Patient seen and examined. Patient went into A-fib with RVR overnight, had worsening respiratory status. Patient had rapid sponsor called and was transferred to ICU. Patient currently on Airvo. Gets short of breath on exertion 08/11 Patient respiratory status got worse and she was moved to the ICU. Currently she is awake alert but requires 60 L/min with 90% of FiO2 Abdomen soft, PEG tube is in place No headache or dizziness WBC is trending down to 16,000, hemoglobin down to two 9.7 Pro- Calcitonin increased to 1.6 and 1 extra dose of MiraLAX is added to her antibiotic Ejection fraction is 65 to 70% CT of the abdomen pelvis showing nonobstructive lesion Patient currently covered with IV vancomycin and ceftriaxone and Eraxis, also patient developed A-fib with RVR and followed by switchgear repairer, started on Eliquis at metoprolol also patient continued on aspirin 08/12 Patient currently remains in the ICU, her breathing function gets worse overnight, yesterday she had to be placed on nonrebreather, and Worsened currently and she was placed on BiPAP in the morning with a setting of 15/10 and FiO2 of 100% Patient herself is awake and alert, she says that her breathing is hard but similar to yesterday. She is saturating about 92% on this current BiPAP setting. She denies chest pain She still mildly tachycardic with heart rate 126 with A-fib and RVR, currently she has been followed by switchgear repairer and getting Cardizem drip at 15 mg/h. Discussed the case with pulmonary service regarding her worsening send respiratory symptoms. Patient may require intubation patient is agreeable however because of her mild surgery will be very difficult situation. Therefore they will try to give her some more time before needed intervention. Repeat chest x-ray from this morning showing worsening pneumonia Yesterday pro- Calcitonin was worsened and her antibiotics were updated per ID team, currently on IV vancomycin, ceftriaxone and Eraxis. Also she is continued on Eliquis for new diagnosis of A-fib. Also she is on aspirin 81 mg, oral 08/13 Yesterday night patient still complaining from respiratory distress had to be intubated and currently she is on mechanical ventilation. Her blood pressure is stable and she is afebrile. Labs showing worsening leukocytosis to 21,000, hemoglobin slightly less than 10.3 Patient remains on broad-spectrum antibiotics with IV vancomycin,Ceftriaxone and Eraxis She is also on amiodarone drip, Eliquis 5 mg twice daily and aspirin 81 mg. 08/14 Patient remains in the ICU intubated and sedated. Her FiO2 today was 50% She is afebrile and rest of vitals look stable Leukocytosis is also improving down to 14,000, hemoglobin stable at 9.5. Patient currently covered with Eliquis and metoprolol and digoxin x 1 per Cardi ologist She remains on IV vancomycin, Zosyn and Eraxis Abdominal wound is closed with no drains Rios catheter in place 08/15. Patient seen and examined. Currently intubated. Family at the bedside, questions answered 08/16. Patient seen and examined. Blood work done this morning showed WBC 10.7, hemoglobin 9.2, sodium 130s, potassium 3.3 BUN 9, creatinine 0.43. Chest x-ray done this morning showed worsening infiltrates. Lasix dose has been changed to 40 mg 3 times daily. . Patient seen and examined. Blood work done this morning showed WBC 11.2, hemoglobin 9.6, platelet count 383, sodium 137, potassium 3.7, BUN 15, creatinine 0.50. Patient is -1993 mL over last 24 hours. Patient has been switched to IV Lasix twice a day with Diamox. 08/19. Patient seen examined. Patient went into A-fib with RVR this morning, currently on amiodarone drip.Blood work done this morning showed WBC 10.1, hemoglobin 8.8, sodium 132, potassium 3.6, BUN 24, creatinine 0.65 08/20. Patient seen and examined. Currently in A-fib, rate poorly controlled, continues to be on amiodarone drip. Currently on mechanical ventilation. Tube feeding on hold REVIEW OF SYSTEMS: Review of system cannot be obtained as patient is intubated PHYSICAL EXAMINATION: GENERAL: The patient is intubated HEENT: Pupils are round and equally reacting to light. EOMI. No scleral icterus. No conjunctival pallor. Normocephalic, atraumatic. No pharyngeal erythema. No thyromegaly. CARDIOVASCULAR: S1 and S2 present. No murmurs, rubs, or gallops. Irregular rate and rhythm PULMONARY coarse breath sounds bilaterally, bilateral crackles audible ABDOMEN: Soft, nontender, nondistended, normoactive bowel sounds. No palpable organomegaly. Jejunostomy tube seen MUSCULOSKELETAL: No joint swelling or deformity. EXTREMITIES: No cyanosis, clubbing, 1+ pitting edema of lower extremities bilaterally NEUROLOGICAL: Intubated SKIN: No rashes. Assessment and plan Bilateral pneumonia putum sample obtained 08/01 and again on August 06, 2024 positive for MRSA, Morganella, and group B strep and Rosa Sepsis secondary to above Acute hypoxic respiratory failure secondary to above Mild calorie protein malnutrition History of mouth cancer , currently she uses PEG tube for nutrition COPD, not in acute acute issue History of pneumonia not on anticoagulation History of seizure Monitor vital signs Monitor CBC Monitor CMP Continue telemetry monitoring Aggressive bronchopulmonary hygiene Continue vent management Follow-up on blood cultures Continue breathing treatment Continue amiodarone drip, Cardizem drip, Eliquis Strict I's and O's, daily weights, Lasix 20 mg every 8 Continue vancomycin, cefepime, Eraxis Continue tube feeding Continue breathing treatments ID following Pulmonology following Cardiology following Labs and medication were reviewed.. Continue same treatment. Continue with symptomatic treatment. Resume home medication. Monitor labs and vitals. DVT and GI prophylaxis. Further recommendations as per clinical course of the patient Dictation was produced using [employer] dictation software. please excuse any grammatical, word or spelling errors. Objective - Vital Signs Vital signs: Vital Signs Temp 97.4 F L 08/20/24 12:00 Pulse 73 08/20/24 13:00 Resp 18 08/20/24 13:00 BP 85/57 08/17/24 16:15 Pulse Ox 96 08/20/24 13:00 FiO2 45 08/20/24 12:16 Intake & Output 08/19/24 08/20/24 08/20/24 18:59 06:59 18:59 Intake Total 0919.462 9511.485 439.013 Output Total 1950 1395 820 Balance -687.081 -70.515 -380.987 Weight 55.6 kg 55.6 kg Intake: IV 576 376 161 0.9 NS 240 240 140 A Line 36 36 21 Anidulafungin 100 mg In 100 Sodium Chloride 0.9% 100 ml @ 84 mls/hr IVPB DAILY @1700 [facility] Rx#:[id number] Cefepime 2 gm In Sodium 200 100 Chloride 0.9% 100 ml @ 25 mls/hr IVPB Q8HR [facility] Rx# :[id number] Intake, IV Titration 356.919 738.485 73.013 Amount Amiodarone 450 mg In 249.172 Dextrose 5% in Water 250 ml @ 0.5 MG/MIN 16.667 mls/hr IV .Q15H [facility] Rx#: [id number] Norepinephrine 8 mg In 6.919 39.313 29.725 Sodium Chloride 0.9% 250 ml @ 0.03 MCG/KG/MIN 3. 251 mls/hr IV .Q24H [facility] Rx#:[id number] Potassium Chloride 10 meq 100 100 In Water For Injection 1 100ml.bag @ 100 mls/hr IVPB Q1H [facility] Rx#: [id number] Vancomycin 1,000 mg In 250 250 Sodium Chloride 0.9% 250 ml @ 125 mls/hr IVPB Q12H [facility] Rx#:[id number] propofoL 1,000 mg In 100 43.288 Empty Bag 1 bag @ 15 MCG/ KG/MIN 5.04 mls/hr IV . [id number] [facility] Rx#:[id number] Oral 75 Tube Feeding 180 120 70 Other 150 90 60 Output: Urine 1950 1395 820 Other: Voiding Method Indwelling Catheter Indwelling Catheter Indwelling Catheter ABP, PAP, CO, CI - Last Documented Arterial Blood Pressure 108/57 - Labs CBC & Chem 7: 08/20/24 05:29 08/20/24 05:29 Labs: Abnormal Lab Results - Last 24 Hours (Table) 08/19/24 08/19/24 08/20/24 Range/Units 17:53 23:13 04:39 WBC (3.8-10.6) k/uL RBC (3.80-5.40) m/uL Hgb (11.4-16.0) gm/dL Hct (34.0-46.0) % Plt Count (150-450) k/uL Neutrophils # (1.3-7.7) k/uL Lymphocytes # (1.0-4.8) k/uL ABG pH 7.51 H (7.35-7.45) ABG pCO2 48 H (35-45) mmHg ABG pO2 72 L (83-108) mmHg ABG HCO3 38 H (21-25) mmol/L ABG Total CO2 39 H (19-24) mmol/L Hemoglobin 9.3 L (11.4-16.0) gm/dL Sodium (137-145) mmol/L Chloride (98-107) mmol/L Carbon Dioxide (22-30) mmol/L BUN (7-17) mg/dL Glucose (74-99) mg/dL POC Glucose (mg/dL) 195 H 182 H (70-110) mg/dL 08/20/24 08/20/24 08/20/24 Range/Units 05:22 05:29 05:29 WBC 11.6 H (3.8-10.6) k/uL RBC 3.37 L (3.80-5.40) m/uL Hgb 9.5 L (11.4-16.0) gm/dL Hct 30.5 L (34.0-46.0) % Plt Count 509 H (150-450) k/uL Neutrophils # 10.4 H (1.3-7.7) k/uL Lymphocytes # 0.8 L (1.0-4.8) k/uL ABG pH (7.35-7.45) ABG pCO2 (35-45) mmHg ABG pO2 (83-108) mmHg ABG HCO3 (21-25) mmol/L ABG Total CO2 (19-24) mmol/L Hemoglobin (11.4-16.0) gm/dL Sodium 133 L (137-145) mmol/L Chloride 93 L (98-107) mmol/L Carbon Dioxide 39 H (22-30) mmol/L BUN 31 H (7-17) mg/dL Glucose 164 H (74-99) mg/dL POC Glucose (mg/dL) 171 H (70-110) mg/dL 08/20/24 Range/Units 12:10 WBC (3.8-10.6) k/uL RBC (3.80-5.40) m/uL Hgb (11.4-16.0) gm/dL Hct (34.0-46.0) % Plt Count (150-450) k/uL Neutrophils # (1.3-7.7) k/uL Lymphocytes # (1.0-4.8) k/uL ABG pH (7.35-7.45) ABG pCO2 (35-45) mmHg ABG pO2 (83-108) mmHg ABG HCO3 (21-25) mmol/L ABG Total CO2 (19-24) mmol/L Hemoglobin (11.4-16.0) gm/dL Sodium (137-145) mmol/L Chloride (98-107) mmol/L Carbon Dioxide (22-30) mmol/L BUN (7-17) mg/dL Glucose (74-99) mg/dL POC Glucose (mg/dL) 168 H (70-110) mg/dL Microbiology - Last 24 Hours (Table) 08/17/24 11:25 Anaerobic Culture - Preliminary Abdomen 08/17/24 11:25 Gram Stain - Preliminary Abdomen Wound Culture - Preliminary Pseudomonas aeruginosa Presumptive MRSA Gram Neg Bacilli Yeast species
--- NOTE | 2024-08-20 14:12 | P.PN ---
Subjective Progress Note Date: 08/20/24 SURGICAL PROGRESS NOTE CHIEF COMPLAINT: Respiratory failure HISTORY OF PRESENT ILLNESS: Patient remains intubated on mechanical ventilation in the ICU. Patient tolerated the tube feeds at 10 mL/h. No nausea or vomiting reported. Initially this morning she was having no further drainage from the PEG tube site or the J-tube site. This afternoon nursing staff notified surgical service that she is having drainage from the PEG tube site after medications were given. PEG o gram was ordered and confirmed PEG tube placement. PHYSICAL EXAM: VITAL SIGNS: Reviewed. GENERAL: Intubated ABDOMEN: Soft. Nondistended. Nontender. PEG tube site and J-tube site clean dry and intact ASSESSMENT: 1. Clogged jejunostomy tube and nausea status post J-tube exchange at bedside 2. Aspiration pneumonia 3. History of tongue and neck cancer status post chemo and radiation and reconstructive surgery PLAN: -Advance tube feeds through J-tube to 20 mL/h -Plan for possible PEG tube exchange at bedside tomorrow -Agree with hold on placing medications down PEG tube at this time Physician Veneer Taping Machine Operator note has been reviewed by physician. Signing provider agrees with the documented findings, assessment, and plan of care. Attestation Patient seen and examined at bedside. Daughter at bedside. Jejunostomy tube appears to be functioning at 10 cc/h and we will advance to 20. Initially, no issues with PEG tube, however nursing did page with finding of drainage around PEG tube site. Echogram performed with contrast with appropriate confirmation of PEG tube placement. Will need to consider possible PEG tube exchange if continued leakage. Kaitlynn Sanchez, DO Objective - Vital Signs Vital signs: Vital Signs Temp 97.4 F L 08/20/24 12:00 Pulse 73 08/20/24 13:00 Resp 18 08/20/24 13:00 BP 85/57 08/17/24 16:15 Pulse Ox 96 08/20/24 13:00 FiO2 45 08/20/24 12:16 Intake & Output 08/19/24 08/20/24 08/20/24 18:59 06:59 18:59 Intake Total 9422.604 3346.485 439.013 Output Total 1950 1395 820 Balance -687.081 -70.515 -380.987 Weight 55.6 kg 55.6 kg Intake: IV 576 376 161 0.9 NS 240 240 140 A Line 36 36 21 Anidulafungin 100 mg In 100 Sodium Chloride 0.9% 100 ml @ 84 mls/hr IVPB DAILY @1700 [facility] Rx#:[id number] Cefepime 2 gm In Sodium 200 100 Chloride 0.9% 100 ml @ 25 mls/hr IVPB Q8HR [facility] Rx# :[id number] Intake, IV Titration 356.919 738.485 73.013 Amount Amiodarone 450 mg In 249.172 Dextrose 5% in Water 250 ml @ 0.5 MG/MIN 16.667 mls/hr IV .Q15H [facility] Rx#: [id number] Norepinephrine 8 mg In 6.919 39.313 29.725 Sodium Chloride 0.9% 250 ml @ 0.03 MCG/KG/MIN 3. 251 mls/hr IV .Q24H [facility] Rx#:[id number] Potassium Chloride 10 meq 100 100 In Water For Injection 1 100ml.bag @ 100 mls/hr IVPB Q1H [facility] Rx#: [id number] Vancomycin 1,000 mg In 250 250 Sodium Chloride 0.9% 250 ml @ 125 mls/hr IVPB Q12H [facility] Rx#:[id number] propofoL 1,000 mg In 100 43.288 Empty Bag 1 bag @ 15 MCG/ KG/MIN 5.04 mls/hr IV . [id number] [facility] Rx#:[id number] Oral 75 Tube Feeding 180 120 70 Other 150 90 60 Output: Urine 1950 1395 820 Other: Voiding Method Indwelling Catheter Indwelling Catheter Indwelling Catheter ABP, PAP, CO, CI - Last Documented Arterial Blood Pressure 108/57 - Labs CBC & Chem 7: 08/20/24 05:29 08/20/24 05:29 Labs: Abnormal Lab Results - Last 24 Hours (Table) 08/19/24 08/19/24 08/20/24 Range/Units 17:53 23:13 04:39 WBC (3.8-10.6) k/uL RBC (3.80-5.40) m/uL Hgb (11.4-16.0) gm/dL Hct (34.0-46.0) % Plt Count (150-450) k/uL Neutrophils # (1.3-7.7) k/uL Lymphocytes # (1.0-4.8) k/uL ABG pH 7.51 H (7.35-7.45) ABG pCO2 48 H (35-45) mmHg ABG pO2 72 L (83-108) mmHg ABG HCO3 38 H (21-25) mmol/L ABG Total CO2 39 H (19-24) mmol/L Hemoglobin 9.3 L (11.4-16.0) gm/dL Sodium (137-145) mmol/L Chloride (98-107) mmol/L Carbon Dioxide (22-30) mmol/L BUN (7-17) mg/dL Glucose (74-99) mg/dL POC Glucose (mg/dL) 195 H 182 H (70-110) mg/dL 08/20/24 08/20/24 08/20/24 Range/Units 05:22 05:29 05:29 WBC 11.6 H (3.8-10.6) k/uL RBC 3.37 L (3.80-5.40) m/uL Hgb 9.5 L (11.4-16.0) gm/dL Hct 30.5 L (34.0-46.0) % Plt Count 509 H (150-450) k/uL Neutrophils # 10.4 H (1.3-7.7) k/uL Lymphocytes # 0.8 L (1.0-4.8) k/uL ABG pH (7.35-7.45) ABG pCO2 (35-45) mmHg ABG pO2 (83-108) mmHg ABG HCO3 (21-25) mmol/L ABG Total CO2 (19-24) mmol/L Hemoglobin (11.4-16.0) gm/dL Sodium 133 L (137-145) mmol/L Chloride 93 L (98-107) mmol/L Carbon Dioxide 39 H (22-30) mmol/L BUN 31 H (7-17) mg/dL Glucose 164 H (74-99) mg/dL POC Glucose (mg/dL) 171 H (70-110) mg/dL 08/20/24 Range/Units 12:10 WBC (3.8-10.6) k/uL RBC (3.80-5.40) m/uL Hgb (11.4-16.0) gm/dL Hct (34.0-46.0) % Plt Count (150-450) k/uL Neutrophils # (1.3-7.7) k/uL Lymphocytes # (1.0-4.8) k/uL ABG pH (7.35-7.45) ABG pCO2 (35-45) mmHg ABG pO2 (83-108) mmHg ABG HCO3 (21-25) mmol/L ABG Total CO2 (19-24) mmol/L Hemoglobin (11.4-16.0) gm/dL Sodium (137-145) mmol/L Chloride (98-107) mmol/L Carbon Dioxide (22-30) mmol/L BUN (7-17) mg/dL Glucose (74-99) mg/dL POC Glucose (mg/dL) 168 H (70-110) mg/dL Microbiology - Last 24 Hours (Table) 08/17/24 11:25 Anaerobic Culture - Preliminary Abdomen 08/17/24 11:25 Gram Stain - Preliminary Abdomen Wound Culture - Preliminary Pseudomonas aeruginosa Presumptive MRSA Gram Neg Bacilli Yeast species
--- NOTE | 2024-08-20 14:25 | P.PN ---
Subjective Progress Note Date: 08/20/24 Principal diagnosis: Acute hypoxic respiratory failure with bilateral aspiration pneumonia with sepsis and septic shock 08/11/2023, the patient is being seen for a follow-up. Is a 63-year-old female patient with past medical history of oral cancer and previous radical neck disse ction followed by radiation therapy and reconstructive surgery and the patient suffers from chronic dysphagia and the patient has PEG tube. The patient also has previous history of DVT/pulmonary embolism maintained on anticoagulation. She has history of atrial fibrillation, hypothyroidism and seizure disorders. For now, the patient is in the intensive care unit for an acute hypoxic respiratory failure. The patient is currently on Airvo at 60 L with an FiO2 of 90% %. Chest x-ray shows bilateral lower lobe consolidation and possibly some small effusions. Antibiotic coverage is with IV Eraxis, vancomycin and Rocephin. Sputum samples collected on 08/06/2024 was consistent with MRSA, Morganella morganii and strep agalactiae. The patient had developed significant leukocytosis which is downtrending and the white cell count from yesterday was down to 16. Patient also developed atrial fibrillation with rapid ventricular response over the past 24 to 48 hours. The patient based on that was started on Cardizem drip and she is already anticoagulated with Eliquis. She remains on Cardizem at 10 mg an hour. She is also on metoprolol 25 mg p.o. twice daily for rate control. The patient is also on oxygen and Airvo settings this morning is 6 L with an FiO2 of 90%. The patient has a J-tube for feeding receiving Jevity 1.5 at the rate of 40 cc an hour. The J-tube was replaced yesterday. This was done by general surgery. CAT scan of the abdomen done on 08/09/2024 showed that the jejunostomy tube was grossly intact. Nevertheless, it there was evidence of lower lobe consolidations bilaterally worse on the left. 08/12/2023, the patient is being seen for a follow-up. Condition is gradually compensated over the past 24 hours and the patient has become more hypoxic related to her pneumonia. Noted the patient was on high flow oxygen, Airvo 60 L with an FiO2 of 90%. Subsequently, she was given 100% nonrebreather facemask and the patient continued to have episodes of desaturation. At a later stage, overnight, the patient was placed on a BiPAP and currently she is on a BiPAP pre ssure of 15 over 10 cm of water with an FiO2 of 100%. Initially, this morning, she was still desaturating and her blood gas was obtained which showed a pH of 7.33 with a pCO2 of 74 and pO2 of 49. I attended on this patient immediately. I wanted to intubate the patient. However, I do acknowledge that this is going to be an extremely difficult intubation as the patient does not have any ability to open up her mouth due to chronic scarring in her neck muscles and scarring of her jaw and her neck is significantly scarred up and stiff related to previous radiation therapy. While adjusting the BiPAP mask, we improved the leaks and the pulse ox improved currently she is pulse oxing in order of 91 to 93%. Reviewed the chest x-ray from today shows diffuse bilateral airspace disease consistent with pneumonia. No evidence of any pneumothorax. The patient continues to have a congested cough. No significant sputum production. Despite his ongoing hypoxemia, she is breathing comfortably. Her current respiratory rate is in the mid 20s. She is still awake and communicating. No fever. No hemodynamic instability. She remains in atrial fibrillation. Antibiotic coverage remains unchanged and the patient remains on a combination of Rocephin and vancomycin and Eraxis. The fluid balance has been negative over the past 24 hours. The white cell count is at 18.10.8 and this is. Calcium level 6. The patient remains on DuoNeb nebulized treatments. In terms of her ongoing atrial fibrillation, she is on Cardizem drip at 15 mg an hour. She remains on anticoagulation with Eliquis. She is also on metoprololAt a dose of 25 mg p.o. twice a day. No hypotension. Hemodynamically stable. IV fluids are currently at KVO. On 08/13/2024, the patient is being seen for a follow-up. As mentioned, the patient was intubated yesterday and placed on mechanical ventilation due to bilateral pneumonia that was further complicated by an episode of aspiration. This morning, the patient is sedated and the patient is calm and comfortable. She is on assist-control mode of mechanical ventilation. He is on a rate of 16 with a tidal volume of 350 and FiO2 of 50% with a PEEP of 8. The blood gas showed a pH of 7.45 with a pCO2 of 54 and pO2 of 91. Chest x-ray is consistent with diffuse bilateral pulmonary filtrates/pneumonia. Bronchoscopy was also done and another bronchial aspirate was obtained, pending further cultures. She is calm and comfortable on propofol running at 35 mcg/kg/min. Noted post intubation, the patient became hypotensive. Received a liter bolus and currently she is on normal saline at rate of 100 cc an hour. Norepinephrine is running at 0.15 mcg/kg/min. She remains in atrial fibrillation. She is on amiodarone drip at 0.5 mg/min and she is also on Cardizem drip. Slightly tachycardic. Remains on Rocephin and vancomycin and Rocephin will be switched to Zosyn. Lasix will also to be discontinued. Enteral feeding is to be started today. The white cell count of 21 with a hemoglobin 10.3 and a platelet count of 427. Sodium is at 138, BUN 13 creatinine 0.4 and a potassium level is at 3.2 with a bicarb level of 37 On 08/14/2024, the patient is being seen for a follow-up. The patient remains intubated on the mechanical ventilator. Earlier this morning, the patient is on a 30 mcg of propofol and the patient is adequately sedated. She remains on the mechanical ventilator assist-control mode with rate of 16, tidal volume of 350, FiO2 of 50% with a PEEP of 8. Blood gases show a pH of 7.41 with a pCO2 of 51 and pO2 of 82. No significant respiratory secretions. The sputum cultures and the bronchial aspirate this was collected and sent for culture showed presumptive Staph aureus and gram-negative bacillus and the patient remains on broad-spectrum antibiotics and the patient remains on a combination of Zosyn and vancomycin. Chest x-ray findings are essentially unchanged and the patient has diffuse bilateral patchy pulmonary infiltrates consistent with pneumonia. Meanwhile, the patient is on normal saline at rate of 100 cc an hour. Hemod ynamically, she still requiring pressors and the patient is on norepinephrine at 0.06 mcg/kg/min. Earlier this morning, the patient was still tachycardic while being in atrial fibrillation. She was started on Cardizem drip at 5 mg an hour by cardiology. She remains on amiodarone 0.5 mg/min. The patient was also given metoprolol 25 mg p.o. twice daily and the patient remains on anticoagulation with Eliquis. She is receiving enteral feeding for nutritional support with vital high-protein at rate of 10 cc an hour. The white cell count is 14.3 with hemoglobin 9.5 and a platelet count of 375. Sodium is at 137, potassium is at 3.6, BUN is 8. The patient with a creatinine of 0.4 On 08/15/2024, the patient is being seen for a follow-up. On today's evaluation, the patient extremity, comfortable on propofol running at 30 mcg/kg/min. Chest x-ray shows stable bilateral pulmonary filtrates, essentially unchanged. The bronchial lavage that was obtained earlier was positive for MRSA and Morganella morganii and the patient remains on a combination of Zosyn and vancomycin. The patient remains on assist-control mode mechanical ventilation. The patient's current setting includes on assist-control mode with rate of 18, tidal volume of 350, FiO2 40% with a PEEP of 6. Blood gas showed a pH of 7.41 with a pCO2 of 52 and pO2 of 107 and there has been some improvement in the oxygenation. Fluid balance is +3.8 L. The patient remains on low-dose dose of norepinephrine running at 0.02 mcg/kg/min. IV fluids are in the form of normal saline at rate of 100 cc an hour and the patient's cardiac rhythm is converted into sinus. The patient is currently on oral amiodarone. The patient is also on vital high- protein at rate of 42 cc an hour and she is tolerating the enteral feeding. The white cell count of 12.7 with a hemoglobin 9.2 and a platelet count of 377. BUN is 9 with a creatinine of 0.4 and sodium levels at 138 with potassium level of 3.6. No other significant events overnight. On 08/16/2024, the patient is being seen for a follow-up. Remains sedated on propofol running at 30 mcg/kg/min. Chest x-ray still showing extensive bilateral consolidation and the previous bronchoalveolar lavage was consistent with Morganella morganii and MRSA. Remains on Zosyn and vancomycin. Remains on assist-control mode of mechanical ventilation at rate of 16, tidal volume of 350, FiO2 of 60% with a PEEP of 5. The blood gases from today shows a pH of 7.46 with a pCO2 of 53 and pO2 of 71. Fluid balance is positive around 3.8 L over the past 24 hours. IV fluids are currently at KVO. She remains on low- dose norepinephrine running at 0.08 mcg/kg/min. Overnight, the patient deve loped again atrial fibrillation with RVR. She was started on Cardizem drip at 5 mg an hour she is also back on IV amiodarone 0.5 mg/min. Vital high-protein for enteral feeding at rate of 42 cc an hour. The white cell count of 10.7 with a hemoglobin 9.2. Sodium is at 136, BUN is at 9 with a creatinine of 0.3 and a potassium level is at 3.3, needs to be replaced. No other significant events overnight. On 08/17/2024, the patient remains on the mechanical ventilator. This morning, the patient is on propofol for sedation and she is calm and comfortable. At the same time, she is on assist-control mode of mechanical ventilation at rate of 16, tidal volume of 350, FiO2 of 50% with a PEEP of 5. Blood gas showed a pH of 7.55 with a pCO2 of 56 and pO2 of 90. Chest x-ray findings are essentially unchanged. CAT scan of the chest was obtained this morning and it shows bilateral consolidation left more than right consistent with pneumonia and there is also small to moderate-sized pleural effusion. The patient remains on a combination of cefepime and vancomycin and Eraxis. Afebrile. Hemodynamically, she remains on low-dose norepinephrine running at 0.06 mcg/kg/min. Cardiac rhythm is converted to sinus and the patient remains on Cardizem drip at 5 mg an hour and the patient is also on amiodarone drip. The patient was started on diuretics. She is currently on a combination of Lasix and Zaroxolyn. She was receiving IV Lasix 40 mg IV every 8 hours and Zaroxolyn 5 mg p.o. twice a day. Fluid balance is -4.8 L over the past 24 hours. She remains on vital high- protein at rate of 40 cc an hour. The white cell count is 11 with a hemoglobin 9.6 and a platelet count of 383. Sodium is at 135, potassium is at 3.7, serum bicarb is at 44, BUN is 15 with a creatinine of 0.5. Calcium level is at 8.2. Patient was seen today on 08/18/24, remains in the ICU, intubated and mechanical ly ventilated, patient is on assist-control rate of 16 tidal volume 350 FiO2 50% PEEP of 5 ABG showed a pO2 of 98 pCO2 57 pH of 7.46 remains on norepinephrine at 0.03 mcg/kg/min propofol at 30 mcg/kg/min amiodarone 0.5 mg/min patient remains on cefepime and vancomycin she is also on Eraxis. Receiving nutritional support/vital HP at 42 cc/h. Patient has a right groin arterial line and triple-lumen catheter. She has a PEG and J-tube in place, patient remains on antibiotics in the form of cefepime and vancomycin, she had positive sputum for MRSA and Morganella. Opens eyes, does not follow instructions today, patient is sedated, plan is to hold sedation and address mental status off sedation today. WBC count is 12.1 hemoglobin 9.4, Basic metabolic profile is normal bicarb is 14 renal profile is normal chest x-ray continues show bilateral bibasilar infiltrates consistent with aspiration pneumonia minimal improvement compared to baseline Patient was seen today on 08/19/2024 this note was dictated on 08/20 but is actually a note from 08/19/2024, apparently the note from 08/19 was deleted by mistake. At any rate patient was seen on 08/19, remains on mechanical ventilation, remains on assist-control rate of 16 tidal volume 350, FiO2 50% and PEEP of 5G showed a pO2 of 112 pCO2 52 pH of 7.49, patient remains on norepinephrine being titrated accordingly, remains on antibiotics including cefepime and vancomycin she is also on Eraxis. Continues to have significant airspace disease in both lungs. There is also a left upper lobe masslike consolidation in the left upper lobe, it is not clear whether this is a pneumonic process or malignancy. The plan is to address this eventually after the patient gets over this episode of respiratory failure. Patient does have positive sputum for Pseudomonas, and also positive system for Morganella morganii. Is arousable, follows very simple instructions, seems to be generally weak. WBC count 10.1 hemoglobin 8.8, electrolytes are normal BUN is 24 creatinine 0.65. Chest x-ray continues show evidence of bilateral airspace disease left more so than right Objective - Vital Signs Vital signs: Vital Signs Temp 97.4 F L 08/20/24 12:00 Pulse 73 08/20/24 13:00 Resp 18 08/20/24 13:00 BP 85/57 08/17/24 16:15 Pulse Ox 96 08/20/24 13:00 FiO2 45 08/20/24 12:16 Intake & Output 08/19/24 08/20/24 08/20/24 18:59 06:59 18:59 Intake Total 8910.117 3229.485 439.013 Output Total 1950 1395 820 Balance -687.081 -70.515 -380.987 Weight 55.6 kg 55.6 kg Intake: IV 576 376 161 0.9 NS 240 240 140 A Line 36 36 21 Anidulafungin 100 mg In 100 Sodium Chloride 0.9% 100 ml @ 84 mls/hr IVPB DAILY @1700 [facility] Rx#:[id number] Cefepime 2 gm In Sodium 200 100 Chloride 0.9% 100 ml @ 25 mls/hr IVPB Q8HR [facility] Rx# :[id number] Intake, IV Titration 356.919 738.485 73.013 Amount Amiodarone 450 mg In 249.172 Dextrose 5% in Water 250 ml @ 0.5 MG/MIN 16.667 mls/hr IV .Q15H [facility] Rx#: [id number] Norepinephrine 8 mg In 6.919 39.313 29.725 Sodium Chloride 0.9% 250 ml @ 0.03 MCG/KG/MIN 3. 251 mls/hr IV .Q24H [facility] Rx#:[id number] Potassium Chloride 10 meq 100 100 In Water For Injection 1 100ml.bag @ 100 mls/hr IVPB Q1H [facility] Rx#: [id number] Vancomycin 1,000 mg In 250 250 Sodium Chloride 0.9% 250 ml @ 125 mls/hr IVPB Q12H [facility] Rx#:[id number] propofoL 1,000 mg In 100 43.288 Empty Bag 1 bag @ 15 MCG/ KG/MIN 5.04 mls/hr IV . [id number] [facility] Rx#:[id number] Oral 75 Tube Feeding 180 120 70 Other 150 90 60 Output: Urine 1950 1395 820 Other: Voiding Method Indwelling Catheter Indwelling Catheter Indwelling Catheter ABP, PAP, CO, CI - Last Documented Arterial Blood Pressure 108/57 - Exam GENERAL EXAM: 63-year-old female intubated mechanically ventilated sedated HEAD: Normocephalic and atraumatic EYES: PERRLA, EOMI, nonicteric no neck masses no JVD no stridor NOSE: Clear with pink turbinates. THROA. Edentulous, surgical neck scar noted from previous reconstructive surgery unable to open her mouth as the patient has jaw dysfunction and scarring in her neck muscles.. CHEST: No chest wall deformity. LUNGS: Crackles and rhonchi noted bilaterally especially at the bases CVS: Irregular rhythm, normal S1-S2, no S3 gallop Abdomen: Evidence of gastrostomy and jejunostomy tubes noted otherwise unremarkable SKIN: No rashes CENTRAL NERVOUS SYSTEM: Patient is awake, arousable, follows very simple instructions spite of being on propofol. EXTREMITIES: There is no peripheral edema, clubbing, or cyanosis. Peripheral pulses are intact. - Labs CBC & Chem 7: 08/20/24 05:29 08/20/24 05:29 Labs: Abnormal Lab Results - Last 24 Hours (Table) 08/19/24 08/19/24 08/20/24 Range/Units 17:53 23:13 04:39 WBC (3.8-10.6) k/uL RBC (3.80-5.40) m/uL Hgb (11.4-16.0) gm/dL Hct (34.0-46.0) % Plt Count (150-450) k/uL Neutrophils # (1.3-7.7) k/uL Lymphocytes # (1.0-4.8) k/uL ABG pH 7.51 H (7.35-7.45) ABG pCO2 48 H (35-45) mmHg ABG pO2 72 L (83-108) mmHg ABG HCO3 38 H (21-25) mmol/L ABG Total CO2 39 H (19-24) mmol/L Hemoglobin 9.3 L (11.4-16.0) gm/dL Sodium (137-145) mmol/L Chloride (98-107) mmol/L Carbon Dioxide (22-30) mmol/L BUN (7-17) mg/dL Glucose (74-99) mg/dL POC Glucose (mg/dL) 195 H 182 H (70-110) mg/dL 08/20/24 08/20/24 08/20/24 Range/Units 05:22 05:29 05:29 WBC 11.6 H (3.8-10.6) k/uL RBC 3.37 L (3.80-5.40) m/uL Hgb 9.5 L (11.4-16.0) gm/dL Hct 30.5 L (34.0-46.0) % Plt Count 509 H (150-450) k/uL Neutrophils # 10.4 H (1.3-7.7) k/uL Lymphocytes # 0.8 L (1.0-4.8) k/uL ABG pH (7.35-7.45) ABG pCO2 (35-45) mmHg ABG pO2 (83-108) mmHg ABG HCO3 (21-25) mmol/L ABG Total CO2 (19-24) mmol/L Hemoglobin (11.4-16.0) gm/dL Sodium 133 L (137-145) mmol/L Chloride 93 L (98-107) mmol/L Carbon Dioxide 39 H (22-30) mmol/L BUN 31 H (7-17) mg/dL Glucose 164 H (74-99) mg/dL POC Glucose (mg/dL) 171 H (70-110) mg/dL 08/20/24 Range/Units 12:10 WBC (3.8-10.6) k/uL RBC (3.80-5.40) m/uL Hgb (11.4-16.0) gm/dL Hct (34.0-46.0) % Plt Count (150-450) k/uL Neutrophils # (1.3-7.7) k/uL Lymphocytes # (1.0-4.8) k/uL ABG pH (7.35-7.45) ABG pCO2 (35-45) mmHg ABG pO2 (83-108) mmHg ABG HCO3 (21-25) mmol/L ABG Total CO2 (19-24) mmol/L Hemoglobin (11.4-16.0) gm/dL Sodium (137-145) mmol/L Chloride (98-107) mmol/L Carbon Dioxide (22-30) mmol/L BUN (7-17) mg/dL Glucose (74-99) mg/dL POC Glucose (mg/dL) 168 H (70-110) mg/dL Microbiology - Last 24 Hours (Table) 08/17/24 11:25 Anaerobic Culture - Preliminary Abdomen 08/17/24 11:25 Gram Stain - Preliminary Abdomen Wound Culture - Preliminary Pseudomonas aeruginosa Presumptive MRSA Gram Neg Bacilli Yeast species Assessment and Plan Assessment: Impression: Acute hypoxic respiratory failure secondary to aspiration pneumonia, sputum positive for MRSA and positive for Morganella morganii as well as Rosa, patient remains on Eraxis vancomycin and cefepime Sepsis with septic shock requiring pressors, patient remains on pressors/norepinephrine Chronic atrial fibrillation 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 Recommendation: Continue ventilatory support Continue hemodynamic support Continue nutritional support Continue GI and DVT prophylaxis Continue diuretics Continue antibiotics and antifungal Continue amiodarone and Cardizem, atrial fibrillation is being addressed by cardiology Continue metoprolol Continue Eliquis Continue bronchodilators If atrial fibrillation is under better control, patient could be considered for a weaning trial however if atrial fibrillation is not controlled, would not even recommend weaning Not quite ready for extubation Patient is critically ill, critical care time is over 30 minutes Time with Patient: Greater than 30
--- NOTE | 2024-08-20 14:32 | P.PN ---
Subjective Progress Note Date: 08/20/24 Principal diagnosis: Acute hypoxic respiratory failure with bilateral aspiration pneumonia with sepsis and septic shock 08/11/2023, the patient is being seen for a follow-up. Is a 63-year-old female patient with past medical history of oral cancer and previous radical neck disse ction followed by radiation therapy and reconstructive surgery and the patient suffers from chronic dysphagia and the patient has PEG tube. The patient also has previous history of DVT/pulmonary embolism maintained on anticoagulation. She has history of atrial fibrillation, hypothyroidism and seizure disorders. For now, the patient is in the intensive care unit for an acute hypoxic respiratory failure. The patient is currently on Airvo at 60 L with an FiO2 of 90% %. Chest x-ray shows bilateral lower lobe consolidation and possibly some small effusions. Antibiotic coverage is with IV Eraxis, vancomycin and Rocephin. Sputum samples collected on 08/06/2024 was consistent with MRSA, Morganella morganii and strep agalactiae. The patient had developed significant leukocytosis which is downtrending and the white cell count from yesterday was down to 16. Patient also developed atrial fibrillation with rapid ventricular response over the past 24 to 48 hours. The patient based on that was started on Cardizem drip and she is already anticoagulated with Eliquis. She remains on Cardizem at 10 mg an hour. She is also on metoprolol 25 mg p.o. twice daily for rate control. The patient is also on oxygen and Airvo settings this morning is 6 L with an FiO2 of 90%. The patient has a J-tube for feeding receiving Jevity 1.5 at the rate of 40 cc an hour. The J-tube was replaced yesterday. This was done by general surgery. CAT scan of the abdomen done on 08/09/2024 showed that the jejunostomy tube was grossly intact. Nevertheless, it there was evidence of lower lobe consolidations bilaterally worse on the left. 08/12/2023, the patient is being seen for a follow-up. Condition is gradually compensated over the past 24 hours and the patient has become more hypoxic related to her pneumonia. Noted the patient was on high flow oxygen, Airvo 60 L with an FiO2 of 90%. Subsequently, she was given 100% nonrebreather facemask and the patient continued to have episodes of desaturation. At a later stage, overnight, the patient was placed on a BiPAP and currently she is on a BiPAP pre ssure of 15 over 10 cm of water with an FiO2 of 100%. Initially, this morning, she was still desaturating and her blood gas was obtained which showed a pH of 7.33 with a pCO2 of 74 and pO2 of 49. I attended on this patient immediately. I wanted to intubate the patient. However, I do acknowledge that this is going to be an extremely difficult intubation as the patient does not have any ability to open up her mouth due to chronic scarring in her neck muscles and scarring of her jaw and her neck is significantly scarred up and stiff related to previous radiation therapy. While adjusting the BiPAP mask, we improved the leaks and the pulse ox improved currently she is pulse oxing in order of 91 to 93%. Reviewed the chest x-ray from today shows diffuse bilateral airspace disease consistent with pneumonia. No evidence of any pneumothorax. The patient continues to have a congested cough. No significant sputum production. Despite his ongoing hypoxemia, she is breathing comfortably. Her current respiratory rate is in the mid 20s. She is still awake and communicating. No fever. No hemodynamic instability. She remains in atrial fibrillation. Antibiotic coverage remains unchanged and the patient remains on a combination of Rocephin and vancomycin and Eraxis. The fluid balance has been negative over the past 24 hours. The white cell count is at 18.10.8 and this is. Calcium level 6. The patient remains on DuoNeb nebulized treatments. In terms of her ongoing atrial fibrillation, she is on Cardizem drip at 15 mg an hour. She remains on anticoagulation with Eliquis. She is also on metoprololAt a dose of 25 mg p.o. twice a day. No hypotension. Hemodynamically stable. IV fluids are currently at KVO. On 08/13/2024, the patient is being seen for a follow-up. As mentioned, the patient was intubated yesterday and placed on mechanical ventilation due to bilateral pneumonia that was further complicated by an episode of aspiration. This morning, the patient is sedated and the patient is calm and comfortable. She is on assist-control mode of mechanical ventilation. He is on a rate of 16 with a tidal volume of 350 and FiO2 of 50% with a PEEP of 8. The blood gas showed a pH of 7.45 with a pCO2 of 54 and pO2 of 91. Chest x-ray is consistent with diffuse bilateral pulmonary filtrates/pneumonia. Bronchoscopy was also done and another bronchial aspirate was obtained, pending further cultures. She is calm and comfortable on propofol running at 35 mcg/kg/min. Noted post intubation, the patient became hypotensive. Received a liter bolus and currently she is on normal saline at rate of 100 cc an hour. Norepinephrine is running at 0.15 mcg/kg/min. She remains in atrial fibrillation. She is on amiodarone drip at 0.5 mg/min and she is also on Cardizem drip. Slightly tachycardic. Remains on Rocephin and vancomycin and Rocephin will be switched to Zosyn. Lasix will also to be discontinued. Enteral feeding is to be started today. The white cell count of 21 with a hemoglobin 10.3 and a platelet count of 427. Sodium is at 138, BUN 13 creatinine 0.4 and a potassium level is at 3.2 with a bicarb level of 37 On 08/14/2024, the patient is being seen for a follow-up. The patient remains intubated on the mechanical ventilator. Earlier this morning, the patient is on a 30 mcg of propofol and the patient is adequately sedated. She remains on the mechanical ventilator assist-control mode with rate of 16, tidal volume of 350, FiO2 of 50% with a PEEP of 8. Blood gases show a pH of 7.41 with a pCO2 of 51 and pO2 of 82. No significant respiratory secretions. The sputum cultures and the bronchial aspirate this was collected and sent for culture showed presumptive Staph aureus and gram-negative bacillus and the patient remains on broad-spectrum antibiotics and the patient remains on a combination of Zosyn and vancomycin. Chest x-ray findings are essentially unchanged and the patient has diffuse bilateral patchy pulmonary infiltrates consistent with pneumonia. Meanwhile, the patient is on normal saline at rate of 100 cc an hour. Hemod ynamically, she still requiring pressors and the patient is on norepinephrine at 0.06 mcg/kg/min. Earlier this morning, the patient was still tachycardic while being in atrial fibrillation. She was started on Cardizem drip at 5 mg an hour by cardiology. She remains on amiodarone 0.5 mg/min. The patient was also given metoprolol 25 mg p.o. twice daily and the patient remains on anticoagulation with Eliquis. She is receiving enteral feeding for nutritional support with vital high-protein at rate of 10 cc an hour. The white cell count is 14.3 with hemoglobin 9.5 and a platelet count of 375. Sodium is at 137, potassium is at 3.6, BUN is 8. The patient with a creatinine of 0.4 On 08/15/2024, the patient is being seen for a follow-up. On today's evaluation, the patient extremity, comfortable on propofol running at 30 mcg/kg/min. Chest x-ray shows stable bilateral pulmonary filtrates, essentially unchanged. The bronchial lavage that was obtained earlier was positive for MRSA and Morganella morganii and the patient remains on a combination of Zosyn and vancomycin. The patient remains on assist-control mode mechanical ventilation. The patient's current setting includes on assist-control mode with rate of 18, tidal volume of 350, FiO2 40% with a PEEP of 6. Blood gas showed a pH of 7.41 with a pCO2 of 52 and pO2 of 107 and there has been some improvement in the oxygenation. Fluid balance is +3.8 L. The patient remains on low-dose dose of norepinephrine running at 0.02 mcg/kg/min. IV fluids are in the form of normal saline at rate of 100 cc an hour and the patient's cardiac rhythm is converted into sinus. The patient is currently on oral amiodarone. The patient is also on vital high- protein at rate of 42 cc an hour and she is tolerating the enteral feeding. The white cell count of 12.7 with a hemoglobin 9.2 and a platelet count of 377. BUN is 9 with a creatinine of 0.4 and sodium levels at 138 with potassium level of 3.6. No other significant events overnight. On 08/16/2024, the patient is being seen for a follow-up. Remains sedated on propofol running at 30 mcg/kg/min. Chest x-ray still showing extensive bilateral consolidation and the previous bronchoalveolar lavage was consistent with Morganella morganii and MRSA. Remains on Zosyn and vancomycin. Remains on assist-control mode of mechanical ventilation at rate of 16, tidal volume of 350, FiO2 of 60% with a PEEP of 5. The blood gases from today shows a pH of 7.46 with a pCO2 of 53 and pO2 of 71. Fluid balance is positive around 3.8 L over the past 24 hours. IV fluids are currently at KVO. She remains on low- dose norepinephrine running at 0.08 mcg/kg/min. Overnight, the patient deve loped again atrial fibrillation with RVR. She was started on Cardizem drip at 5 mg an hour she is also back on IV amiodarone 0.5 mg/min. Vital high-protein for enteral feeding at rate of 42 cc an hour. The white cell count of 10.7 with a hemoglobin 9.2. Sodium is at 136, BUN is at 9 with a creatinine of 0.3 and a potassium level is at 3.3, needs to be replaced. No other significant events overnight. On 08/17/2024, the patient remains on the mechanical ventilator. This morning, the patient is on propofol for sedation and she is calm and comfortable. At the same time, she is on assist-control mode of mechanical ventilation at rate of 16, tidal volume of 350, FiO2 of 50% with a PEEP of 5. Blood gas showed a pH of 7.55 with a pCO2 of 56 and pO2 of 90. Chest x-ray findings are essentially unchanged. CAT scan of the chest was obtained this morning and it shows bilateral consolidation left more than right consistent with pneumonia and there is also small to moderate-sized pleural effusion. The patient remains on a combination of cefepime and vancomycin and Eraxis. Afebrile. Hemodynamically, she remains on low-dose norepinephrine running at 0.06 mcg/kg/min. Cardiac rhythm is converted to sinus and the patient remains on Cardizem drip at 5 mg an hour and the patient is also on amiodarone drip. The patient was started on diuretics. She is currently on a combination of Lasix and Zaroxolyn. She was receiving IV Lasix 40 mg IV every 8 hours and Zaroxolyn 5 mg p.o. twice a day. Fluid balance is -4.8 L over the past 24 hours. She remains on vital high- protein at rate of 40 cc an hour. The white cell count is 11 with a hemoglobin 9.6 and a platelet count of 383. Sodium is at 135, potassium is at 3.7, serum bicarb is at 44, BUN is 15 with a creatinine of 0.5. Calcium level is at 8.2. Patient was seen today on 08/18/24, remains in the ICU, intubated and mechanical ly ventilated, patient is on assist-control rate of 16 tidal volume 350 FiO2 50% PEEP of 5 ABG showed a pO2 of 98 pCO2 57 pH of 7.46 remains on norepinephrine at 0.03 mcg/kg/min propofol at 30 mcg/kg/min amiodarone 0.5 mg/min patient remains on cefepime and vancomycin she is also on Eraxis. Receiving nutritional support/vital HP at 42 cc/h. Patient has a right groin arterial line and triple-lumen catheter. She has a PEG and J-tube in place, patient remains on antibiotics in the form of cefepime and vancomycin, she had positive sputum for MRSA and Morganella. Opens eyes, does not follow instructions today, patient is sedated, plan is to hold sedation and address mental status off sedation today. WBC count is 12.1 hemoglobin 9.4, Basic metabolic profile is normal bicarb is 14 renal profile is normal chest x-ray continues show bilateral bibasilar infiltrates consistent with aspiration pneumonia minimal improvement compared to baseline Patient was seen today on 08/19/2024 this note was dictated on 08/20 but is actually a note from 08/19/2024, apparently the note from 08/19 was deleted by mistake. At any rate patient was seen on 08/19, remains on mechanical ventilation, remains on assist-control rate of 16 tidal volume 350, FiO2 50% and PEEP of 5G showed a pO2 of 112 pCO2 52 pH of 7.49, patient remains on norepinephrine being titrated accordingly, remains on antibiotics including cefepime and vancomycin she is also on Eraxis. Continues to have significant airspace disease in both lungs. There is also a left upper lobe masslike consolidation in the left upper lobe, it is not clear whether this is a pneumonic process or malignancy. The plan is to address this eventually after the patient gets over this episode of respiratory failure. Patient does have positive sputum for Pseudomonas, and also positive system for Morganella morganii. Is arousable, follows very simple instructions, seems to be generally weak. WBC count 10.1 hemoglobin 8.8, electrolytes are normal BUN is 24 creatinine 0.65. Chest x-ray continues show evidence of bilateral airspace disease left more so than right Patient seen on 08/20/2024 patient remains in the ICU, intubated and mechanically ventilated, she is on assist-control rate of 16 tidal volume 350 FiO2 45% PEEP of 5 ABG showed a pO2 of 72 pCO2 48 pH of 7.51. Continues to use norepinephrine at 0.04 mcg/kg/min remains on propofol at 15 mcg/kg/min patient was transitioned from oral amiodarone to IV amiodarone at 0.5 mg/min she has vital AF at 10 cc/h surgery evaluated her gastric tube and did not feel there is any major concern but recommended trickle feeding patient remains on cefepime vancomycin and Eraxis remains on Lasix at 20 mg IV push every 8 hours patient is also on Eliquis. Abdominal x-rays showed negative findings patient had a peak airway pressure of 26 Plateau pressure of 16 no changes again were made in her vent ilator settings instructed nursing to lower down the dose the dose of norepinephrine and titrate to a mean arterial pressure of 65. Her atrial fibrillation remains poorly controlled and I believe the patient is not going to wean easily with poorly controlled atrial fibrillation. Daughter is at bedside today and she had lots of questions regarding her condition and regarding her left upper lobe masslike consolidation and I explained to her that this is to be addressed down the line once her clinical condition improves, patient is not a great candidate for bronchoscopy at this point or biopsy. Labs today were all reviewed WBC count is 11.6 hemoglobin 9.5, basic metabolic profile is relatively normal BUN is 31 creatinine 0.55 sputum cultures and abdominal wound cultures were reviewed Objective - Vital Signs Vital signs: Vital Signs Temp 97.4 F L 08/20/24 12:00 Pulse 66 08/20/24 14:15 Resp 16 08/20/24 14:15 BP 85/57 08/17/24 16:15 Pulse Ox 95 08/20/24 14:15 FiO2 45 08/20/24 12:16 Intake & Output 08/19/24 08/20/24 08/20/24 18:59 06:59 18:59 Intake Total 2737.429 6563.485 502.013 Output Total 1950 1395 880 Balance -687.081 -70.515 -377.987 Weight 55.6 kg 55.6 kg Intake: IV 576 376 184 0.9 NS 240 240 160 A Line 36 36 24 Anidulafungin 100 mg In 100 Sodium Chloride 0.9% 100 ml @ 84 mls/hr IVPB DAILY @[facility] Rx#:[id number] Cefepime 2 gm In Sodium 200 100 Chloride 0.9% 100 ml @ 25 mls/hr IVPB Q8HR [facility] Rx# :[id number] Intake, IV Titration 356.919 738.485 73.013 Amount Amiodarone 450 mg In 249.172 Dextrose 5% in Water 250 ml @ 0.5 MG/MIN 16.667 mls/hr IV .Q15H [facility] Rx#: [id number] Norepinephrine 8 mg In 6.919 39.313 29.725 Sodium Chloride 0.9% 250 ml @ 0.03 MCG/KG/MIN 3. 251 mls/hr IV .Q24H [facility] Rx#:[id number] Potassium Chloride 10 meq 100 100 In Water For Injection 1 100ml.bag @ 100 mls/hr IVPB Q1H [facility] Rx#: [id number] Vancomycin 1,000 mg In 250 250 Sodium Chloride 0.9% 250 ml @ 125 mls/hr IVPB Q12H [facility] Rx#:[id number] propofoL 1,000 mg In 100 43.288 Empty Bag 1 bag @ 15 MCG/ KG/MIN 5.04 mls/hr IV . [id number] [facility] Rx#:[id number] Oral 75 Tube Feeding 180 120 110 Other 150 90 60 Output: Urine 1950 1395 880 Other: Voiding Method Indwelling Catheter Indwelling Catheter Indwelling Catheter ABP, PAP, CO, CI - Last Documented Arterial Blood Pressure 104/55 - Exam GENERAL EXAM: 63-year-old female intubated mechanically ventilated sedated however the patient is arousable, follows simple instructions, she is on a low- dose propofol. HEAD: Normocephalic and atraumatic EYES: PERRLA, EOMI, nonicteric no neck masses no JVD no stridor NOSE: Clear with pink turbinates. THROA. Edentulous, surgical neck scar noted from previous reconstructive surgery unable to open her mouth as the patient has jaw dysfunction and scarring in her neck muscles.. CHEST: No chest wall deformity. LUNGS: Crackles at the bases persist CVS: Irregular irregular rhythm, tachycardic normal S1-S2, no S3 gallop Abdomen: Evidence of gastrostomy and jejunostomy tubes noted otherwise unremarkable SKIN: No rashes CENTRAL NERVOUS SYSTEM: Patient is awake, arousable, follows very simple instructions spite of being on propofol. EXTREMITIES: There is no peripheral edema, clubbing, or cyanosis. Peripheral pulses are intact. - Labs CBC & Chem 7: 08/20/24 05:29 08/20/24 05:29 Labs: Abnormal Lab Results - Last 24 Hours (Table) 08/19/24 08/19/24 08/20/24 Range/Units 17:53 23:13 04:39 WBC (3.8-10.6) k/uL RBC (3.80-5.40) m/uL Hgb (11.4-16.0) gm/dL Hct (34.0-46.0) % Plt Count (150-450) k/uL Neutrophils # (1.3-7.7) k/uL Lymphocytes # (1.0-4.8) k/uL ABG pH 7.51 H (7.35-7.45) ABG pCO2 48 H (35-45) mmHg ABG pO2 72 L (83-108) mmHg ABG HCO3 38 H (21-25) mmol/L ABG Total CO2 39 H (19-24) mmol/L Hemoglobin 9.3 L (11.4-16.0) gm/dL Sodium (137-145) mmol/L Chloride (98-107) mmol/L Carbon Dioxide (22-30) mmol/L BUN (7-17) mg/dL Glucose (74-99) mg/dL POC Glucose (mg/dL) 195 H 182 H (70-110) mg/dL 08/20/24 08/20/24 08/20/24 Range/Units 05:22 05:29 05:29 WBC 11.6 H (3.8-10.6) k/uL RBC 3.37 L (3.80-5.40) m/uL Hgb 9.5 L (11.4-16.0) gm/dL Hct 30.5 L (34.0-46.0) % Plt Count 509 H (150-450) k/uL Neutrophils # 10.4 H (1.3-7.7) k/uL Lymphocytes # 0.8 L (1.0-4.8) k/uL ABG pH (7.35-7.45) ABG pCO2 (35-45) mmHg ABG pO2 (83-108) mmHg ABG HCO3 (21-25) mmol/L ABG Total CO2 (19-24) mmol/L Hemoglobin (11.4-16.0) gm/dL Sodium 133 L (137-145) mmol/L Chloride 93 L (98-107) mmol/L Carbon Dioxide 39 H (22-30) mmol/L BUN 31 H (7-17) mg/dL Glucose 164 H (74-99) mg/dL POC Glucose (mg/dL) 171 H (70-110) mg/dL 08/20/24 Range/Units 12:10 WBC (3.8-10.6) k/uL RBC (3.80-5.40) m/uL Hgb (11.4-16.0) gm/dL Hct (34.0-46.0) % Plt Count (150-450) k/uL Neutrophils # (1.3-7.7) k/uL Lymphocytes # (1.0-4.8) k/uL ABG pH (7.35-7.45) ABG pCO2 (35-45) mmHg ABG pO2 (83-108) mmHg ABG HCO3 (21-25) mmol/L ABG Total CO2 (19-24) mmol/L Hemoglobin (11.4-16.0) gm/dL Sodium (137-145) mmol/L Chloride (98-107) mmol/L Carbon Dioxide (22-30) mmol/L BUN (7-17) mg/dL Glucose (74-99) mg/dL POC Glucose (mg/dL) 168 H (70-110) mg/dL Microbiology - Last 24 Hours (Table) 08/17/24 11:25 Anaerobic Culture - Preliminary Abdomen 08/17/24 11:25 Gram Stain - Preliminary Abdomen Wound Culture - Preliminary Pseudomonas aeruginosa Presumptive MRSA Gram Neg Bacilli Yeast species Assessment and Plan Assessment: Impression: Acute hypoxic respiratory failure secondary to aspiration pneumonia, sputum positive for MRSA and positive for Morganella morganii as well as Rosa, patient remains on Eraxis vancomycin and cefepime Sepsis with septic shock requiring pressors, patient remains on pressors/norepinephrine Chronic atrial fibrillation 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 Recommendation: Discussed and updated her daughter on her condition today, explained to her the finding in the left upper lobe which seems to be mostly concerned about and that is to be addressed later. Continue ventilatory support Continue hemodynamic support Continue nutritional support Continue GI and DVT prophylaxis Continue diuretics Continue antibiotics and antifungal Continue amiodarone, cardiology is addressing atrial fibrillation Continue metoprolol Continue Eliquis Continue bronchodilators Patient is not quite ready for weaning and clearly not quite ready for extubation. Not quite ready for extubation Patient is critically ill, critical care time is over 30 minutes Time with Patient: Greater than 30
[2024-08-20] MEDS: CHOLESTYRAMINE (WITH SUGAR) 4 GM PACKET PO SCH (15:38)
[2024-08-20 17:34] LABS: Glucose,Whole Blood 170 mg/dL (70-110)
[2024-08-20 23:28] LABS: Glucose,Whole Blood 170 mg/dL (70-110)
[2024-08-21 05:17] LABS: Basophils % (A) 0 %; Eosinophils % (A) 0 %; HCT 28.3 % (34.0-46.0); Hypochromasia Slight; Lymphocytes # (A) 0.8 k/uL (1.0-4.8); Lymphocytes % (A) 6 %; MCH 28.8 pg (25.0-35.0); MCHC 31.9 g/dL (31.0-37.0); MCV 90.2 fL (80.0-100.0); Mean Platelet Volume 9.4; Monocytes # (A) 0.4 k/uL (0-1.0); Monocytes % (A) 3 %; Neutrophils # (A) 12.4 k/uL (1.3-7.7); Neutrophils % (A) 90 %; Platelet Count 572 k/uL (150-450); RBC 3.13 m/uL (3.80-5.40); WBC 13.7 k/uL (3.8-10.6)
[2024-08-21 05:31] LABS: African American GFR (CKD) >90 (>60 ml/min/1.73 sqM); Anion Gap 2 mmol/L; Blood Urea Nitrogen 33 mg/dL (7-17); Calcium 8.3 mg/dL (8.4-10.2); Carbon Dioxide 38 mmol/L (22-30); Chloride 96 mmol/L (98-107); Glucose 167 mg/dL (74-99); Non-African American GFR(CKD) >90 (>60 ml/min/1.73 sqM); Potassium 3.5 mmol/L (3.5-5.1); Sodium 136 mmol/L (137-145)
[2024-08-21 06:01] LABS: ABG Base Excess 12.6 mmol/L; ABG HCO3 37 mmol/L (21-25); ABG Oxygen Saturation 93.8 % (94-97); ABG PCO2 44 mmHg (35-45); ABG PH 7.53 (7.35-7.45); ABG PO2 67 mmHg (83-108); ABG TCO2 38 mmol/L (19-24); Allen Test Performed? Yes
[2024-08-21] MEDS ORDERED: Potassium Replacement Protocol 1 EACH MISC MISCELLANE PRN (06:16)
[2024-08-21] MEDS: POTASSIUM CHLORIDE 20 MEQ in WATER FOR INJECTION 1 100ML.BAG IVPB SCH (06:49)
--- NOTE | 2024-08-21 07:30 | XR ---
EXAMINATION TYPE: XR chest 1V portable DATE OF EXAM: 08/21/2024 5:37 AM COMPARISON: Chest radiographs from 08/20/2024 CLINICAL INDICATION: Female, 64 years old with history of mechanical ventilation; [facility] TECHNIQUE: XR chest 1V portable Frontal view of the chest. FINDINGS: Lungs/Pleura: Multifocal airspace opacities. No evidence of pneumothorax or pleural effusion. Pulmonary vascularity: Unremarkable. Heart/mediastinum: Cardiomediastinal silhouette is unremarkable. Musculoskeletal: No acute osseous pathology. Other findings: None Lines/Tubes: Endotracheal tube with distal tip 3.4cm above the myranda. IMPRESSION: 1. Similar multifocal airspace opacities. 2. Stable support tube. [facility], , 08/21/2024 7:28 AM
[2024-08-21] MEDS: FUROSEMIDE 10 MG/ML 4 ML VIAL IV STA (08:18)
--- NOTE | 2024-08-21 09:06 | P.PN ---
Subjective Progress Note Date: 08/21/24 HPI: This is a 63-year-old lady with multiple medical problems including radical neck dissection for oral cancer and reconstructive surgery. She has a PEG tube. She has history of recurrent aspiration pneumonia. She is here with multiple comorbid conditions including pneumonia infection around the site of PEG tube. She also has atrial fibrillation. She is currently on a ventilator. He is in sinus rhythm today hemodynamically stable. Currently on IV Cardizem 7.5 mg/h drip.. She is on a ventilator cannot assess neurological status. I started her I am amiodarone drip yesterday at 0.5 mg rate. We will continue the same for now. Prognosis remains poor overall. She is going to have her PEG tube changed today. Only after the PEG tube is active we will switch her to oral agents for now we will continue amiodarone and Cardizem intravenously. No other new suggestions. PHYSICIAL EXAM: Hemodynamically stable vitals are stable S1-S2 with irregularity rhythm short systolic murmur ventilator assisted breath sounds abdomen is soft lower extremities reveal diminished pulses Central nervous system not assessed. IMPRESSION: 1. Aspiration pneumonia and respiratory failure. 2. Paroxysmal atrial fibrillation currently in sinus rhythm hemodynamically stable 3. History of head and neck cancer s/p surgery and reconstructive surgery. 4. History of DVT. 5.. RECOMMENDATIONS: Continue IV amiodarone drip since I do not believe the PEG tube administration is helping much. Will continue IV Cardizem and amiodarone intravenously for now once PEG tube is changed will switch to oral agents. Shekhar velasco is maintaining sinus rhythm Objective - Vital Signs Vital signs: Vital Signs Temp 97.8 F 08/21/24 04:00 Pulse 71 08/21/24 08:19 Resp 21 08/21/24 07:00 BP 85/57 08/17/24 16:15 Pulse Ox 96 08/21/24 07:00 FiO2 45 08/21/24 08:12 Intake & Output 08/20/24 08/21/24 08/21/24 18:59 06:59 18:59 Intake Total 1004.550 901.258 140.403 Output Total 1455 2015 110 Balance -450.450 -1113.742 30.403 Weight 55.6 kg 56.9 kg Intake: IV 276 276 23 0.9 NS 240 240 20 A Line 36 36 3 Intake, IV Titration 373.550 405.258 97.403 Amount Amiodarone 450 mg In 250 243.616 Dextrose 5% in Water 250 ml @ 0.5 MG/MIN 16.667 mls/hr IV .Q15H [facility] Rx#: [id number] Diltiazem 125 mg In 112.25 Sodium Chloride 0.9% 100 ml @ 7.5 MG/HR 7.5 mls/hr IV .[id number] [facility] Rx#: [id number] Norepinephrine 8 mg In 53.634 51.203 Sodium Chloride 0.9% 250 ml @ 0.03 MCG/KG/MIN 3. 251 mls/hr IV .Q24H [facility] Rx#:[id number] propofoL 1,000 mg In 69.916 49.392 46.2 Empty Bag 1 bag @ 15 MCG/ KG/MIN 5.04 mls/hr IV . [id number] [facility] Rx#:[id number] Oral 75 Tube Feeding 190 220 20 Other 90 Output: Urine 1455 2015 110 Other: Voiding Method Indwelling Catheter Indwelling Catheter ABP, PAP, CO, CI - Last Documented Arterial Blood Pressure 102/60 - Labs CBC & Chem 7: 08/21/24 04:30 08/21/24 04:30 Labs: Abnormal Lab Results - Last 24 Hours (Table) 08/20/24 08/20/24 08/20/24 Range/Units 12:10 17:32 23:27 WBC (3.8-10.6) k/uL RBC (3.80-5.40) m/uL Hgb (11.4-16.0) gm/dL Hct (34.0-46.0) % Plt Count (150-450) k/uL Neutrophils # (1.3-7.7) k/uL Lymphocytes # (1.0-4.8) k/uL ABG pH (7.35-7.45) ABG pO2 (83-108) mmHg ABG HCO3 (21-25) mmol/L ABG Total CO2 (19-24) mmol/L ABG O2 Saturation (94-97) % Hemoglobin (11.4-16.0) gm/dL Sodium (137-145) mmol/L Chloride (98-107) mmol/L Carbon Dioxide (22-30) mmol/L BUN (7-17) mg/dL Glucose (74-99) mg/dL POC Glucose (mg/dL) 168 H 170 H 170 H (70-110) mg/dL Calcium (8.4-10.2) mg/dL 08/21/24 08/21/24 08/21/24 Range/Units 04:30 04:30 05:58 WBC 13.7 H (3.8-10.6) k/uL RBC 3.13 L (3.80-5.40) m/uL Hgb 9.0 L (11.4-16.0) gm/dL Hct 28.3 L (34.0-46.0) % Plt Count 572 H (150-450) k/uL Neutrophils # 12.4 H (1.3-7.7) k/uL Lymphocytes # 0.8 L (1.0-4.8) k/uL ABG pH 7.53 H (7.35-7.45) ABG pO2 67 L (83-108) mmHg ABG HCO3 37 H (21-25) mmol/L ABG Total CO2 38 H (19-24) mmol/L ABG O2 Saturation 93.8 L (94-97) % Hemoglobin 9.2 L (11.4-16.0) gm/dL Sodium 136 L (137-145) mmol/L Chloride 96 L (98-107) mmol/L Carbon Dioxide 38 H (22-30) mmol/L BUN 33 H (7-17) mg/dL Glucose 167 H (74-99) mg/dL POC Glucose (mg/dL) (70-110) mg/dL Calcium 8.3 L (8.4-10.2) mg/dL Microbiology - Last 24 Hours (Table) 08/17/24 11:25 Anaerobic Culture - Preliminary Abdomen 08/17/24 11:25 Gram Stain - Preliminary Abdomen Wound Culture - Preliminary Pseudomonas aeruginosa Presumptive MRSA Gram Neg Bacilli Yeast species
--- NOTE | 2024-08-21 09:11 | P.PN ---
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 Patient chest x-ray right lower lobe infiltrate. On today's evaluation that is 08/20/2024,the patient continues to be afebrile patient remains to be intubated on the vent FiO2 is currently at 45% no significant purulent secretion reported through the ET patient did have issues with A-fib with RVR as reported by the nursing staff still having diarrhea with the fecal management system but no worsening output reported by the nursing staff. Patient white count is 11.6 creatinine is 0.55 chest x-ray reported correlate for congestive heart failure slightly improved from comparison Objective - Vital Signs Vital signs: Vital Signs Temp 97.7 F 08/20/24 08:00 Pulse 87 08/20/24 11:00 Resp 16 08/20/24 11:00 BP 85/57 08/17/24 16:15 Pulse Ox 96 08/20/24 11:00 FiO2 45 08/20/24 08:04 Intake & Output 08/19/24 08/20/24 08/20/24 18:59 06:59 18:59 Intake Total 5224.498 8186.485 254.461 Output Total 1950 1395 720 Balance -687.081 -70.515 -465.539 Weight 55.6 kg 55.6 kg Intake: IV 576 376 115 0.9 NS 240 240 100 A Line 36 36 15 Anidulafungin 100 mg In 100 Sodium Chloride 0.9% 100 ml @ 84 mls/hr IVPB DAILY @1700 [facility] Rx#:[id number] Cefepime 2 gm In Sodium 200 100 Chloride 0.9% 100 ml @ 25 mls/hr IVPB Q8HR [facility] Rx# :[id number] Intake, IV Titration 356.919 738.485 59.461 Amount Amiodarone 450 mg In 249.172 Dextrose 5% in Water 250 ml @ 0.5 MG/MIN 16.667 mls/hr IV .Q15H [facility] Rx#: [id number] Norepinephrine 8 mg In 6.919 39.313 29.725 Sodium Chloride 0.9% 250 ml @ 0.03 MCG/KG/MIN 3. 251 mls/hr IV .Q24H [facility] Rx#:[id number] Potassium Chloride 10 meq 100 100 In Water For Injection 1 100ml.bag @ 100 mls/hr IVPB Q1H [facility] Rx#: [id number] Vancomycin 1,000 mg In 250 250 Sodium Chloride 0.9% 250 ml @ 125 mls/hr IVPB Q12H [facility] Rx#:[id number] propofoL 1,000 mg In 100 29.736 Empty Bag 1 bag @ 15 MCG/ KG/MIN 5.04 mls/hr IV . [id number] [facility] Rx#:[id number] Tube Feeding 180 120 50 Other 150 90 30 Output: Urine 1950 1395 720 Other: Voiding Method Indwelling Catheter Indwelling Catheter Indwelling Catheter ABP, PAP, CO, CI - Last Documented Arterial Blood Pressure 100/56 - Exam GENERAL DESCRIPTION: Elderly female intubated on the vent RESPIRATORY SYSTEM: Unlabored breathing , decreased breath sounds at bases HEART: S1 S2 regular rate and rhythm , ABDOMEN: Soft , no tenderness, redness around the G-tube site improved EXTREMITIES: No edema feet - Labs CBC & Chem 7: 08/21/24 04:30 08/21/24 04:30 Labs: Abnormal Lab Results - Last 24 Hours (Table) 08/19/24 08/19/24 08/20/24 Range/Units 17:53 23:13 04:39 WBC (3.8-10.6) k/uL RBC (3.80-5.40) m/uL Hgb (11.4-16.0) gm/dL Hct (34.0-46.0) % Plt Count (150-450) k/uL Neutrophils # (1.3-7.7) k/uL Lymphocytes # (1.0-4.8) k/uL ABG pH 7.51 H (7.35-7.45) ABG pCO2 48 H (35-45) mmHg ABG pO2 72 L (83-108) mmHg ABG HCO3 38 H (21-25) mmol/L ABG Total CO2 39 H (19-24) mmol/L Hemoglobin 9.3 L (11.4-16.0) gm/dL Sodium (137-145) mmol/L Chloride (98-107) mmol/L Carbon Dioxide (22-30) mmol/L BUN (7-17) mg/dL Glucose (74-99) mg/dL POC Glucose (mg/dL) 195 H 182 H (70-110) mg/dL 08/20/24 08/20/24 08/20/24 Range/Units 05:22 05:29 05:29 WBC 11.6 H (3.8-10.6) k/uL RBC 3.37 L (3.80-5.40) m/uL Hgb 9.5 L (11.4-16.0) gm/dL Hct 30.5 L (34.0-46.0) % Plt Count 509 H (150-450) k/uL Neutrophils # 10.4 H (1.3-7.7) k/uL Lymphocytes # 0.8 L (1.0-4.8) k/uL ABG pH (7.35-7.45) ABG pCO2 (35-45) mmHg ABG pO2 (83-108) mmHg ABG HCO3 (21-25) mmol/L ABG Total CO2 (19-24) mmol/L Hemoglobin (11.4-16.0) gm/dL Sodium 133 L (137-145) mmol/L Chloride 93 L (98-107) mmol/L Carbon Dioxide 39 H (22-30) mmol/L BUN 31 H (7-17) mg/dL Glucose 164 H (74-99) mg/dL POC Glucose (mg/dL) 171 H (70-110) mg/dL 08/20/24 Range/Units 12:10 WBC (3.8-10.6) k/uL RBC (3.80-5.40) m/uL Hgb (11.4-16.0) gm/dL Hct (34.0-46.0) % Plt Count (150-450) k/uL Neutrophils # (1.3-7.7) k/uL Lymphocytes # (1.0-4.8) k/uL ABG pH (7.35-7.45) ABG pCO2 (35-45) mmHg ABG pO2 (83-108) mmHg ABG HCO3 (21-25) mmol/L ABG Total CO2 (19-24) mmol/L Hemoglobin (11.4-16.0) gm/dL Sodium (137-145) mmol/L Chloride (98-107) mmol/L Carbon Dioxide (22-30) mmol/L BUN (7-17) mg/dL Glucose (74-99) mg/dL POC Glucose (mg/dL) 168 H (70-110) mg/dL Microbiology - Last 24 Hours (Table) 08/17/24 11:25 Anaerobic Culture - Preliminary Abdomen 08/17/24 11:25 Gram Stain - Preliminary Abdomen Wound Culture - Preliminary Pseudomonas aeruginosa Presumptive MRSA Gram Neg Bacilli Yeast species Assessment and Plan (1) MRSA (methicillin resistant Staphylococcus aureus) infection Current Visit: Yes Status: Acute Code(s): A49.02 - METHICILLIN RESIS STAPH INFECTION, UNSP SITE SNOMED Code(s): 172015162 (2) Allergy to sulfa drugs Current Visit: Yes Status: Acute Code(s): Z88.2 - ALLERGY STATUS TO SULFONAMIDES SNOMED Code(s): 15195071 (3) Failure of outpatient treatment Current Visit: Yes Status: Acute Code(s): Z78.9 - OTHER SPECIFIED HEALTH STATUS SNOMED Code(s): 079043691 (4) Pneumonia Current Visit: Yes Status: Acute Code(s): J18.9 - PNEUMONIA, UNSPECIFIED ORGANISM SNOMED Code(s): 641723408 Plan: 1patient with acute respiratory failure currently on the ventilator which is likely multifactorial likely component of A-fib with RVR/CHF and pneumonia the sputum has been growing MRSA and Morganella, patient is currently afebrile and white count has normalized chest x-ray from this morning showing mostly CHF and improving CHF pattern patient did have a CT done on 08/17/2024 that was suggestive of left upper lobe consolidation/mass which the family has been concerned about it has been discussed in detail for better evaluation she may need bronchoscopy however we will leave that decision to the pulmonary if she is stable enough to go for that procedure or not 2-patient also have some drainage around the feeding tube site which has been cultured per granddaughter request and is growing multiple pathogen including Pseudomonas and the daughter has been concerned if the patient aspirated that Pseudomonas while she vomited before which is very unlikely, she mentioned that the feeding tube site looks better to her we currently waiting for sensitivity on the Pseudomonas 3-patient also have significant diarrhea requiring fecal management system placement, stool for C. difficile was negative we will add Questran for symp tomatic relief 4-patient is currently being treated with vancomycin pharmacy to dose watching her kidney function closely and cefepime along with Eraxis Significant amount of time was spent with the family including the granddaughter who has multiple questions those has been also in layman term Dictation was produced using [employer] dictation software. please excuse any grammatical, word or spelling errors. Time with Patient: Greater than 30
[2024-08-21 11:47] LABS: ABG Base Excess 13.5 mmol/L; ABG HCO3 38 mmol/L (21-25); ABG Oxygen Saturation 92.5 % (94-97); ABG PCO2 46 mmHg (35-45); ABG PH 7.52 (7.35-7.45); ABG PO2 63 mmHg (83-108); ABG TCO2 39 mmol/L (19-24); Allen Test Performed? Yes
[2024-08-21 11:51] LABS: Glucose,Whole Blood 158 mg/dL (70-110)
--- NOTE | 2024-08-21 13:13 | P.PN ---
Subjective Progress Note Date: 08/21/24 Principal diagnosis: Acute hypoxic respiratory failure with bilateral aspiration pneumonia with sepsis and septic shock 08/11/2023, the patient is being seen for a follow-up. Is a 63-year-old female patient with past medical history of oral cancer and previous radical neck disse ction followed by radiation therapy and reconstructive surgery and the patient suffers from chronic dysphagia and the patient has PEG tube. The patient also has previous history of DVT/pulmonary embolism maintained on anticoagulation. She has history of atrial fibrillation, hypothyroidism and seizure disorders. For now, the patient is in the intensive care unit for an acute hypoxic respiratory failure. The patient is currently on Airvo at 60 L with an FiO2 of 90% %. Chest x-ray shows bilateral lower lobe consolidation and possibly some small effusions. Antibiotic coverage is with IV Eraxis, vancomycin and Rocephin. Sputum samples collected on 08/06/2024 was consistent with MRSA, Morganella morganii and strep agalactiae. The patient had developed significant leukocytosis which is downtrending and the white cell count from yesterday was down to 16. Patient also developed atrial fibrillation with rapid ventricular response over the past 24 to 48 hours. The patient based on that was started on Cardizem drip and she is already anticoagulated with Eliquis. She remains on Cardizem at 10 mg an hour. She is also on metoprolol 25 mg p.o. twice daily for rate control. The patient is also on oxygen and Airvo settings this morning is 6 L with an FiO2 of 90%. The patient has a J-tube for feeding receiving Jevity 1.5 at the rate of 40 cc an hour. The J-tube was replaced yesterday. This was done by general surgery. CAT scan of the abdomen done on 08/09/2024 showed that the jejunostomy tube was grossly intact. Nevertheless, it there was evidence of lower lobe consolidations bilaterally worse on the left. 08/12/2023, the patient is being seen for a follow-up. Condition is gradually compensated over the past 24 hours and the patient has become more hypoxic related to her pneumonia. Noted the patient was on high flow oxygen, Airvo 60 L with an FiO2 of 90%. Subsequently, she was given 100% nonrebreather facemask and the patient continued to have episodes of desaturation. At a later stage, overnight, the patient was placed on a BiPAP and currently she is on a BiPAP pre ssure of 15 over 10 cm of water with an FiO2 of 100%. Initially, this morning, she was still desaturating and her blood gas was obtained which showed a pH of 7.33 with a pCO2 of 74 and pO2 of 49. I attended on this patient immediately. I wanted to intubate the patient. However, I do acknowledge that this is going to be an extremely difficult intubation as the patient does not have any ability to open up her mouth due to chronic scarring in her neck muscles and scarring of her jaw and her neck is significantly scarred up and stiff related to previous radiation therapy. While adjusting the BiPAP mask, we improved the leaks and the pulse ox improved currently she is pulse oxing in order of 91 to 93%. Reviewed the chest x-ray from today shows diffuse bilateral airspace disease consistent with pneumonia. No evidence of any pneumothorax. The patient continues to have a congested cough. No significant sputum production. Despite his ongoing hypoxemia, she is breathing comfortably. Her current respiratory rate is in the mid 20s. She is still awake and communicating. No fever. No hemodynamic instability. She remains in atrial fibrillation. Antibiotic coverage remains unchanged and the patient remains on a combination of Rocephin and vancomycin and Eraxis. The fluid balance has been negative over the past 24 hours. The white cell count is at 18.10.8 and this is. Calcium level 6. The patient remains on DuoNeb nebulized treatments. In terms of her ongoing atrial fibrillation, she is on Cardizem drip at 15 mg an hour. She remains on anticoagulation with Eliquis. She is also on metoprololAt a dose of 25 mg p.o. twice a day. No hypotension. Hemodynamically stable. IV fluids are currently at KVO. On 08/13/2024, the patient is being seen for a follow-up. As mentioned, the patient was intubated yesterday and placed on mechanical ventilation due to bilateral pneumonia that was further complicated by an episode of aspiration. This morning, the patient is sedated and the patient is calm and comfortable. She is on assist-control mode of mechanical ventilation. He is on a rate of 16 with a tidal volume of 350 and FiO2 of 50% with a PEEP of 8. The blood gas showed a pH of 7.45 with a pCO2 of 54 and pO2 of 91. Chest x-ray is consistent with diffuse bilateral pulmonary filtrates/pneumonia. Bronchoscopy was also done and another bronchial aspirate was obtained, pending further cultures. She is calm and comfortable on propofol running at 35 mcg/kg/min. Noted post intubation, the patient became hypotensive. Received a liter bolus and currently she is on normal saline at rate of 100 cc an hour. Norepinephrine is running at 0.15 mcg/kg/min. She remains in atrial fibrillation. She is on amiodarone drip at 0.5 mg/min and she is also on Cardizem drip. Slightly tachycardic. Remains on Rocephin and vancomycin and Rocephin will be switched to Zosyn. Lasix will also to be discontinued. Enteral feeding is to be started today. The white cell count of 21 with a hemoglobin 10.3 and a platelet count of 427. Sodium is at 138, BUN 13 creatinine 0.4 and a potassium level is at 3.2 with a bicarb level of 37 On 08/14/2024, the patient is being seen for a follow-up. The patient remains intubated on the mechanical ventilator. Earlier this morning, the patient is on a 30 mcg of propofol and the patient is adequately sedated. She remains on the mechanical ventilator assist-control mode with rate of 16, tidal volume of 350, FiO2 of 50% with a PEEP of 8. Blood gases show a pH of 7.41 with a pCO2 of 51 and pO2 of 82. No significant respiratory secretions. The sputum cultures and the bronchial aspirate this was collected and sent for culture showed presumptive Staph aureus and gram-negative bacillus and the patient remains on broad-spectrum antibiotics and the patient remains on a combination of Zosyn and vancomycin. Chest x-ray findings are essentially unchanged and the patient has diffuse bilateral patchy pulmonary infiltrates consistent with pneumonia. Meanwhile, the patient is on normal saline at rate of 100 cc an hour. Hemod ynamically, she still requiring pressors and the patient is on norepinephrine at 0.06 mcg/kg/min. Earlier this morning, the patient was still tachycardic while being in atrial fibrillation. She was started on Cardizem drip at 5 mg an hour by cardiology. She remains on amiodarone 0.5 mg/min. The patient was also given metoprolol 25 mg p.o. twice daily and the patient remains on anticoagulation with Eliquis. She is receiving enteral feeding for nutritional support with vital high-protein at rate of 10 cc an hour. The white cell count is 14.3 with hemoglobin 9.5 and a platelet count of 375. Sodium is at 137, potassium is at 3.6, BUN is 8. The patient with a creatinine of 0.4 On 08/15/2024, the patient is being seen for a follow-up. On today's evaluation, the patient extremity, comfortable on propofol running at 30 mcg/kg/min. Chest x-ray shows stable bilateral pulmonary filtrates, essentially unchanged. The bronchial lavage that was obtained earlier was positive for MRSA and Morganella morganii and the patient remains on a combination of Zosyn and vancomycin. The patient remains on assist-control mode mechanical ventilation. The patient's current setting includes on assist-control mode with rate of 18, tidal volume of 350, FiO2 40% with a PEEP of 6. Blood gas showed a pH of 7.41 with a pCO2 of 52 and pO2 of 107 and there has been some improvement in the oxygenation. Fluid balance is +3.8 L. The patient remains on low-dose dose of norepinephrine running at 0.02 mcg/kg/min. IV fluids are in the form of normal saline at rate of 100 cc an hour and the patient's cardiac rhythm is converted into sinus. The patient is currently on oral amiodarone. The patient is also on vital high- protein at rate of 42 cc an hour and she is tolerating the enteral feeding. The white cell count of 12.7 with a hemoglobin 9.2 and a platelet count of 377. BUN is 9 with a creatinine of 0.4 and sodium levels at 138 with potassium level of 3.6. No other significant events overnight. On 08/16/2024, the patient is being seen for a follow-up. Remains sedated on propofol running at 30 mcg/kg/min. Chest x-ray still showing extensive bilateral consolidation and the previous bronchoalveolar lavage was consistent with Morganella morganii and MRSA. Remains on Zosyn and vancomycin. Remains on assist-control mode of mechanical ventilation at rate of 16, tidal volume of 350, FiO2 of 60% with a PEEP of 5. The blood gases from today shows a pH of 7.46 with a pCO2 of 53 and pO2 of 71. Fluid balance is positive around 3.8 L over the past 24 hours. IV fluids are currently at KVO. She remains on low- dose norepinephrine running at 0.08 mcg/kg/min. Overnight, the patient deve loped again atrial fibrillation with RVR. She was started on Cardizem drip at 5 mg an hour she is also back on IV amiodarone 0.5 mg/min. Vital high-protein for enteral feeding at rate of 42 cc an hour. The white cell count of 10.7 with a hemoglobin 9.2. Sodium is at 136, BUN is at 9 with a creatinine of 0.3 and a potassium level is at 3.3, needs to be replaced. No other significant events overnight. On 08/17/2024, the patient remains on the mechanical ventilator. This morning, the patient is on propofol for sedation and she is calm and comfortable. At the same time, she is on assist-control mode of mechanical ventilation at rate of 16, tidal volume of 350, FiO2 of 50% with a PEEP of 5. Blood gas showed a pH of 7.55 with a pCO2 of 56 and pO2 of 90. Chest x-ray findings are essentially unchanged. CAT scan of the chest was obtained this morning and it shows bilateral consolidation left more than right consistent with pneumonia and there is also small to moderate-sized pleural effusion. The patient remains on a combination of cefepime and vancomycin and Eraxis. Afebrile. Hemodynamically, she remains on low-dose norepinephrine running at 0.06 mcg/kg/min. Cardiac rhythm is converted to sinus and the patient remains on Cardizem drip at 5 mg an hour and the patient is also on amiodarone drip. The patient was started on diuretics. She is currently on a combination of Lasix and Zaroxolyn. She was receiving IV Lasix 40 mg IV every 8 hours and Zaroxolyn 5 mg p.o. twice a day. Fluid balance is -4.8 L over the past 24 hours. She remains on vital high- protein at rate of 40 cc an hour. The white cell count is 11 with a hemoglobin 9.6 and a platelet count of 383. Sodium is at 135, potassium is at 3.7, serum bicarb is at 44, BUN is 15 with a creatinine of 0.5. Calcium level is at 8.2. Patient was seen today on 08/18/24, remains in the ICU, intubated and mechanical ly ventilated, patient is on assist-control rate of 16 tidal volume 350 FiO2 50% PEEP of 5 ABG showed a pO2 of 98 pCO2 57 pH of 7.46 remains on norepinephrine at 0.03 mcg/kg/min propofol at 30 mcg/kg/min amiodarone 0.5 mg/min patient remains on cefepime and vancomycin she is also on Eraxis. Receiving nutritional support/vital HP at 42 cc/h. Patient has a right groin arterial line and triple-lumen catheter. She has a PEG and J-tube in place, patient remains on antibiotics in the form of cefepime and vancomycin, she had positive sputum for MRSA and Morganella. Opens eyes, does not follow instructions today, patient is sedated, plan is to hold sedation and address mental status off sedation today. WBC count is 12.1 hemoglobin 9.4, Basic metabolic profile is normal bicarb is 14 renal profile is normal chest x-ray continues show bilateral bibasilar infiltrates consistent with aspiration pneumonia minimal improvement compared to baseline Patient was seen today on 08/19/2024 this note was dictated on 08/20 but is actually a note from 08/19/2024, apparently the note from 08/19 was deleted by mistake. At any rate patient was seen on 08/19, remains on mechanical ventilation, remains on assist-control rate of 16 tidal volume 350, FiO2 50% and PEEP of 5G showed a pO2 of 112 pCO2 52 pH of 7.49, patient remains on norepinephrine being titrated accordingly, remains on antibiotics including cefepime and vancomycin she is also on Eraxis. Continues to have significant airspace disease in both lungs. There is also a left upper lobe masslike consolidation in the left upper lobe, it is not clear whether this is a pneumonic process or malignancy. The plan is to address this eventually after the patient gets over this episode of respiratory failure. Patient does have positive sputum for Pseudomonas, and also positive system for Morganella morganii. Is arousable, follows very simple instructions, seems to be generally weak. WBC count 10.1 hemoglobin 8.8, electrolytes are normal BUN is 24 creatinine 0.65. Chest x-ray continues show evidence of bilateral airspace disease left more so than right Patient seen on 08/20/2024 patient remains in the ICU, intubated and mechanically ventilated, she is on assist-control rate of 16 tidal volume 350 FiO2 45% PEEP of 5 ABG showed a pO2 of 72 pCO2 48 pH of 7.51. Continues to use norepinephrine at 0.04 mcg/kg/min remains on propofol at 15 mcg/kg/min patient was transitioned from oral amiodarone to IV amiodarone at 0.5 mg/min she has vital AF at 10 cc/h surgery evaluated her gastric tube and did not feel there is any major concern but recommended trickle feeding patient remains on cefepime vancomycin and Eraxis remains on Lasix at 20 mg IV push every 8 hours patient is also on Eliquis. Abdominal x-rays showed negative findings patient had a peak airway pressure of 26 Plateau pressure of 16 no changes again were made in her vent ilator settings instructed nursing to lower down the dose the dose of norepinephrine and titrate to a mean arterial pressure of 65. Her atrial fibrillation remains poorly controlled and I believe the patient is not going to wean easily with poorly controlled atrial fibrillation. Daughter is at bedside today and she had lots of questions regarding her condition and regarding her left upper lobe masslike consolidation and I explained to her that this is to be addressed down the line once her clinical condition improves, patient is not a great candidate for bronchoscopy at this point or biopsy. Labs today were all reviewed WBC count is 11.6 hemoglobin 9.5, basic metabolic profile is relatively normal BUN is 31 creatinine 0.55 sputum cultures and abdominal wound cultures were reviewed Seen today on 08/21/2024, patient remains in the ICU, still intubated and mechanically ventilated, still on assist-control rate of 16 tidal volume 350 FiO2 45% and PEEP of 5 ABG is marginal with a pO2 of 66 pCO2 44 pH of 7.53 her heart rate is better controlled, patient is now on amiodarone 0.5 mg/min she is also on Cardizem 7.5 mg/h norepinephrine is down to 0.03 mcg/kg/min propofol is off today she was on 20 mcg/kg/min earlier and I recommended stopping propofol, patient will be given trials of weaning she did go on pressure support of 10 with CPAP, however her tidal volumes are noted to be very low and marginal, increase the pressure support up to 12, and my plan is to keep her now at least for the time being on pressure support of 12 and CPAP. Better tidal volumes with pressure support of 12 but again not quite ready for weaning. Patient does have very shallow breathing and small tidal volumes most of the time. Remains on vancomycin and cefepime and Eraxis. ABG on pressure support of 10 look marginal, hence held back on extubation. Earlier today I recommended Lasix and she was given 40 mg IV push as well as her usual dose of Lasix which is 20 mg every 8 hours patient remains on Lasix and on Eliquis. Chest x-ray continues to show bilateral patchy opacities involving the left lung and right lower lobe, more airspace disease in the left lung and continues to have masslike co nsolidation in the left upper lobe apically. WBC count is 13.7 hemoglobin is 9 ABG on pressure support and CPAP seem to be similar to the ABG she had earlier today on assist-control mode of mechanical ventilation. She has relative hypoxia and slight hypercapnia. Patient remains metabolically alkalotic. Objective - Vital Signs Vital signs: Vital Signs Temp 98.3 F 08/21/24 08:00 Pulse 74 08/21/24 11:00 Resp 17 08/21/24 11:00 BP 85/57 08/17/24 16:15 Pulse Ox 94 L 08/21/24 11:00 FiO2 45 08/21/24 12:16 Intake & Output 08/20/24 08/21/24 08/21/24 18:59 06:59 18:59 Intake Total 1004.550 901.258 453.209 Output Total 1455 2015 1285 Balance -450.450 -1113.742 -831.791 Weight 55.6 kg 56.9 kg 56.9 kg Intake: IV 276 276 275.5 0.9 NS 240 240 20 A Line 36 36 18 Cefepime 2 gm In Sodium 100 Chloride 0.9% 100 ml @ 25 mls/hr IVPB Q8HR [facility] Rx# :[id number] Diltiazem 125 mg In 37.5 Sodium Chloride 0.9% 100 ml @ 7.5 MG/HR 7.5 mls/hr IV .[id number] [facility] Rx#: [id number] Potassium Chloride 20 meq 100 In Water For Injection 1 100ml.bag @ 50 mls/hr IVPB Q2H [facility] Rx#: [id number] Intake, IV Titration 373.550 405.258 107.709 Amount Amiodarone 450 mg In 250 243.616 Dextrose 5% in Water 250 ml @ 0.5 MG/MIN 16.667 mls/hr IV .Q15H [facility] Rx#: [id number] Diltiazem 125 mg In 112.25 Sodium Chloride 0.9% 100 ml @ 7.5 MG/HR 7.5 mls/hr IV .[id number] [facility] Rx#: [id number] Norepinephrine 8 mg In 53.634 54.273 Sodium Chloride 0.9% 250 ml @ 0.03 MCG/KG/MIN 3. 251 mls/hr IV .Q24H [facility] Rx#:[id number] propofoL 1,000 mg In 69.916 49.392 53.436 Empty Bag 1 bag @ 15 MCG/ KG/MIN 5.04 mls/hr IV . [id number] [facility] Rx#:[id number] Oral 75 Tube Feeding 190 220 40 Other 90 30 Output: Urine 1455 2015 1235 Stool 50 Other: Voiding Method Indwelling Catheter Indwelling Catheter Indwelling Catheter ABP, PAP, CO, CI - Last Documented Arterial Blood Pressure 113/51 - Exam GENERAL EXAM: 63-year-old female intubated mechanically ventilated off propofol, seems to be following instructions he seems to be rather slow but overall following instructions well. HEAD: Normocephalic and atraumatic EYES: PERRLA, EOMI, nonicteric no neck masses no JVD no stridor NOSE: Clear with pink turbinates. THROA. Edentulous, surgical neck scar noted from previous reconstructive surgery unable to open her mouth as the patient has jaw dysfunction and scarring in her neck muscles.. Endotracheal tube is intact CHEST: No chest wall deformity. LUNGS: Fine crackles at the bases no rhonchi no wheezes CVS: Irregular irregular rhythm,normal S1-S2, no S3 gallop Abdomen: Evidence of gastrostomy and jejunostomy tubes noted otherwise unremarkable SKIN: No rashes CENTRAL NERVOUS SYSTEM: Patient is awake, seems to be generally weak but follows instructions EXTREMITIES: There is no peripheral edema, clubbing, or cyanosis. Peripheral pulses are intact. - Labs CBC & Chem 7: 08/21/24 04:30 08/21/24 04:30 Labs: Abnormal Lab Results - Last 24 Hours (Table) 08/20/24 08/20/24 08/21/24 Range/Units 17:32 23:27 04:30 WBC (3.8-10.6) k/uL RBC (3.80-5.40) m/uL Hgb (11.4-16.0) gm/dL Hct (34.0-46.0) % Plt Count (150-450) k/uL Neutrophils # (1.3-7.7) k/uL Lymphocytes # (1.0-4.8) k/uL ABG pH (7.35-7.45) ABG pO2 (83-108) mmHg ABG HCO3 (21-25) mmol/L ABG Total CO2 (19-24) mmol/L ABG O2 Saturation (94-97) % Hemoglobin (11.4-16.0) gm/dL Sodium 136 L (137-145) mmol/L Chloride 96 L (98-107) mmol/L Carbon Dioxide 38 H (22-30) mmol/L BUN 33 H (7-17) mg/dL Glucose 167 H (74-99) mg/dL POC Glucose (mg/dL) 170 H 170 H (70-110) mg/dL Calcium 8.3 L (8.4-10.2) mg/dL 08/21/24 08/21/24 08/21/24 Range/Units 04:30 05:58 11:49 WBC 13.7 H (3.8-10.6) k/uL RBC 3.13 L (3.80-5.40) m/uL Hgb 9.0 L (11.4-16.0) gm/dL Hct 28.3 L (34.0-46.0) % Plt Count 572 H (150-450) k/uL Neutrophils # 12.4 H (1.3-7.7) k/uL Lymphocytes # 0.8 L (1.0-4.8) k/uL ABG pH 7.53 H (7.35-7.45) ABG pO2 67 L (83-108) mmHg ABG HCO3 37 H (21-25) mmol/L ABG Total CO2 38 H (19-24) mmol/L ABG O2 Saturation 93.8 L (94-97) % Hemoglobin 9.2 L (11.4-16.0) gm/dL Sodium (137-145) mmol/L Chloride (98-107) mmol/L Carbon Dioxide (22-30) mmol/L BUN (7-17) mg/dL Glucose (74-99) mg/dL POC Glucose (mg/dL) 158 H (70-110) mg/dL Calcium (8.4-10.2) mg/dL Microbiology - Last 24 Hours (Table) 08/17/24 11:25 Anaerobic Culture - Preliminary Abdomen 08/17/24 11:25 Gram Stain - Preliminary Abdomen Wound Culture - Preliminary Pseudomonas aeruginosa Presumptive MRSA Gram Neg Bacilli Yeast species Assessment and Plan Assessment: Impression: Acute hypoxic respiratory failure secondary to aspiration pneumonia, sputum positive for MRSA and positive for Morganella morganii as well as Rosa, patient remains on Eraxis vancomycin and cefepime Sepsis with septic shock requiring pressors, patient remains on pr essors/norepinephrine Chronic atrial fibrillation 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 Recommendation: Updated family on her condition at bedside. Continue ventilatory support however the patient will continue on pressure support for now and CPAP reevaluate in a couple of hours and decide whether the patient could be weaned and extubated Continue hemodynamic support still requiring small dose of norepinephrine at 0.03 mcg/kg/min Continue nutritional support/enteral feeding via gastrostomy tube. Continue GI and DVT prophylaxis Continue diuretics, extra dose of Lasix was given today Continue antibiotics and antifungal, as per infectious disease on the case Continue amiodarone, and Cardizem Continue metoprolol Continue Eliquis Continue bronchodilators Daily trials of weaning I am in the process of reevaluating the patient later today for possible further weaning and extubation Remains critically ill critical care time is over 30 minutes Again family updated on her condition at bedside Time with Patient: Greater than 30
--- NOTE | 2024-08-21 13:51 | P.PN ---
Subjective Progress Note Date: 08/21/24 This is a pleasant 63 years old female with past medical history of multiple medical problems. Patient called her PCP office of Dr. Anderson and talked to his nurse practitioner Lynnette from she sees in the office complaining from little shortness of breath for the last 4 to 5 days with some cough and phlegm Associated with left lateral chest pain about 7/10 that is worse with coughing and deep breath. 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 Will BMP and LFTs were unremarkable as well as INR proBNP is 248 Chest x-ray showing left lower lobe infiltrate suspicious for pneumonia Patient was started on IV vancomycin and Zosyn and normal saline with pulmonary and ID team consult 08/07/2023 Patient sitting up in bed looks similar to yesterday, complaining from some pain in her left side of the chest but it looks controlled and patient is not in distress No significant dyspnea or tachypnea, she can go to the bathroom by herself with no exertional dyspnea However her oxygen requirement increased from 4 L up to 10 L today. Blood pressure is borderline and patient says usually her blood pressure on the low side Repeat chest x-ray showing similar left lower lobe infiltrate. Her legs are swollen we will going to check ultrasound of the leg given risk factors although she does not have much symptoms Patient remains on IV fluids normal saline at 130 and IV antibiotics with IV vancomycin and ceftriaxone Patient already on Cymbalta, she is asking to start her BuSpar but she is not sure about the dose, is going to be resumed Title Examiner consult is on for tube feeding 08/08 Patient is mildly tachypneic, not using accessory muscles of breathing, her oxygen requirement increased since yesterday to 10 to 11 L/min She has bilateral leg swelling, mild ultrasound of the leg is negative for DVT. Further workup including sputum culture and blood culture are pending. Blood pressure improved Remains on IV vancomycin and ceftriaxone IV fluid was lower dose 130 down to 75 mL/h Pro- Calcitonin is negative 08/09. Patient seen and examined. Currently on 11 L of oxygen. Patient had her jejunostomy tube not functioning, surgery consulted, they order CT abdominal p jasmina 08/10. Patient seen and examined. Patient went into A-fib with RVR overnight, had worsening respiratory status. Patient had rapid sponsor called and was transferred to ICU. Patient currently on Airvo. Gets short of breath on exertion 08/11 Patient respiratory status got worse and she was moved to the ICU. 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 She is saturating about 92% on this current BiPAP setting. She denies chest pain She still mildly tachycardic with heart rate 126 with A-fib and RVR, currently she has been followed by dog track kennel manager and getting Cardizem drip at 15 mg/h. Discussed the case with pulmonary service regarding her worsening send respiratory symptoms. Patient may require intubation patient is agreeable however because of her mild surgery will be very difficult situation. Therefore they will try to give her some more time before needed intervention. Repeat chest x-ray from this morning showing worsening pneumonia Yesterday pro- Calcitonin was worsened and her antibiotics were updated per ID team, currently on IV vancomycin, ceftriaxone and Eraxis. Also she is continued on Eliquis for new diagnosis of A-fib. Also she is on aspirin 81 mg, oral 08/13 Yesterday night patient still complaining from respiratory distress had to be intubated and currently she is on mechanical ventilation. Her blood pressure is stable and she is afebrile. Labs showing worsening leukocytosis to 21,000, hemoglobin slightly less than 10.3 Patient remains on broad-spectrum antibiotics with IV vancomycin,Ceftriaxone and Eraxis She is also on amiodarone drip, Eliquis 5 mg twice daily and aspirin 81 mg. 08/14 Patient remains in the ICU intubated and sedated. Her FiO2 today was 50% She is afebrile and rest of vitals look stable Leukocytosis is also improving down to 14,000, hemoglobin stable at 9.5. Patient currently covered with Eliquis and metoprolol and digoxin x 1 per Cardi ologist She remains on IV vancomycin, Zosyn and Eraxis Abdominal wound is closed with no drains Rios catheter in place 08/15. Patient seen and examined. Currently intubated. Family at the bedside, questions answered 08/16. Patient seen and examined. Blood work done this morning showed WBC 10.7, hemoglobin 9.2, sodium 130s, potassium 3.3 BUN 9, creatinine 0.43. Chest x-ray done this morning showed worsening infiltrates. Lasix dose has been changed to 40 mg 3 times daily. Patient seen and examined. Blood work done this morning showed WBC 11.2, hemoglobin 9.6, platelet count 383, sodium 137, potassium 3.7, BUN 15, creatinine 0.50. Patient is -1993 mL over last 24 hours. Patient has been switched to IV Lasix twice a day with Diamox. 08/19. Patient seen examined. Patient went into A-fib with RVR this morning, currently on amiodarone drip.Blood work done this morning showed WBC 10.1, hemoglobin 8.8, sodium 132, potassium 3.6, BUN 24, creatinine 0.65 08/20. Patient seen and examined. Currently in A-fib, rate poorly controlled, continues to be on amiodarone drip. Currently on mechanical ventilation. Tube feeding on hold 08/21. Patient seen and examined. Patient is currently undergoing weaning trial, currently on CPAP patient is awake following commands. Lab work done in the ER showed WBC 13.7, hemoglobin 9, platelet count 572, sodium 130s, potassium 3.5, BUN 33, creatinine 0.62. REVIEW OF SYSTEMS: Review of system cannot be obtained as patient is intubated PHYSICAL EXAMINATION: GENERAL: The patient is intubated HEENT: Pupils are round and equally reacting to light. EOMI. No scleral icterus. No conjunctival pallor. Normocephalic, atraumatic. No pharyngeal erythema. No thyromegaly. CARDIOVASCULAR: S1 and S2 present. No murmurs, rubs, or gallops. Irregular rate and rhythm PULMONARY coarse breath sounds bilaterally, bilateral crackles audible ABDOMEN: Soft, nontender, nondistended, normoactive bowel sounds. No palpable organomegaly. Jejunostomy tube seen MUSCULOSKELETAL: No joint swelling or deformity. EXTREMITIES: No cyanosis, clubbing, 1+ pitting edema of lower extremities bilaterally NEUROLOGICAL: Intubated SKIN: No rashes. Assessment and plan Bilateral pneumonia putum sample obtained 08/01 and again on August 06, 2024 positive for MRSA, Morganella, and group B strep and Rosa Sepsis secondary to above Acute hypoxic respiratory failure secondary to above Mild calorie protein malnutrition History of mouth cancer , currently she uses PEG tube for nutrition COPD, not in acute acute issue History of pneumonia not on anticoagulation History of seizure Monitor vital signs Monitor CBC Monitor CMP Continue telemetry monitoring Aggressive bronchopulmonary hygiene Continue vent management Continue weaning trial per critical care Follow-up on blood cultures Continue breathing treatment Continue amiodarone drip, Cardizem drip, Eliquis Strict I's and O's, daily weights, Lasix 20 mg every 8 Continue vancomycin, cefepime, Eraxis Continue tube feeding Continue breathing treatments ID following Pulmonology following Cardiology following Labs and medication were reviewed.. Continue same treatment. Continue with symptomatic treatment. Resume home medication. Monitor labs and vitals. DVT and GI prophylaxis. Further recommendations as per clinical course of the patient Dictation was produced using [employer] dictation software. please excuse any grammatical, word or spelling errors. Objective - Vital Signs Vital signs: Vital Signs Temp 99.0 F 08/21/24 12:00 Pulse 79 08/21/24 13:30 Resp 16 08/21/24 13:30 BP 85/57 08/17/24 16:15 Pulse Ox 96 08/21/24 13:30 FiO2 45 08/21/24 13:00 Intake & Output 08/20/24 08/21/24 08/21/24 18:59 06:59 18:59 Intake Total 1004.550 901.258 733.709 Output Total 1455 2014 1565 Balance -450.450 -1113.742 -831.291 Weight 55.6 kg 56.9 kg 56.9 kg Intake: IV 276 276 556.0 0.9 NS 240 240 40 A Line 36 36 21 Cefepime 2 gm In Sodium 100 Chloride 0.9% 100 ml @ 25 mls/hr IVPB Q8HR [facility] Rx# :[id number] Diltiazem 125 mg In 45.0 Sodium Chloride 0.9% 100 ml @ 7.5 MG/HR 7.5 mls/hr IV .[id number] [facility] Rx#: [id number] Potassium Chloride 20 meq 100 In Water For Injection 1 100ml.bag @ 50 mls/hr IVPB Q2H [facility] Rx#: [id number] Vancomycin 1,000 mg In 250 Sodium Chloride 0.9% 250 ml @ 125 mls/hr IVPB Q12H [facility] Rx#:[id number] Intake, IV Titration 373.550 405.258 107.709 Amount Amiodarone 450 mg In 250 243.616 Dextrose 5% in Water 250 ml @ 0.5 MG/MIN 16.667 mls/hr IV .Q15H [facility] Rx#: [id number] Diltiazem 125 mg In 112.25 Sodium Chloride 0.9% 100 ml @ 7.5 MG/HR 7.5 mls/hr IV .[id number] [facility] Rx#: [id number] Norepinephrine 8 mg In 53.634 54.273 Sodium Chloride 0.9% 250 ml @ 0.03 MCG/KG/MIN 3. 251 mls/hr IV .Q24H [facility] Rx#:[id number] propofoL 1,000 mg In 69.916 49.392 53.436 Empty Bag 1 bag @ 15 MCG/ KG/MIN 5.04 mls/hr IV . [id number] [facility] Rx#:[id number] Oral 75 Tube Feeding 190 220 40 Other 90 30 Output: Urine 1455 2015 1515 Stool 50 Other: Voiding Method Indwelling Catheter Indwelling Catheter Indwelling Catheter ABP, PAP, CO, CI - Last Documented Arterial Blood Pressure 121/52 - Labs CBC & Chem 7: 08/21/24 04:30 08/21/24 04:30 Labs: Abnormal Lab Results - Last 24 Hours (Table) 08/20/24 08/20/24 08/21/24 Range/Units 17:32 23:27 04:30 WBC (3.8-10.6) k/uL RBC (3.80-5.40) m/uL Hgb (11.4-16.0) gm/dL Hct (34.0-46.0) % Plt Count (150-450) k/uL Neutrophils # (1.3-7.7) k/uL Lymphocytes # (1.0-4.8) k/uL ABG pH (7.35-7.45) ABG pO2 (83-108) mmHg ABG HCO3 (21-25) mmol/L ABG Total CO2 (19-24) mmol/L ABG O2 Saturation (94-97) % Hemoglobin (11.4-16.0) gm/dL Sodium 136 L (137-145) mmol/L Chloride 96 L (98-107) mmol/L Carbon Dioxide 38 H (22-30) mmol/L BUN 33 H (7-17) mg/dL Glucose 167 H (74-99) mg/dL POC Glucose (mg/dL) 170 H 170 H (70-110) mg/dL Calcium 8.3 L (8.4-10.2) mg/dL 08/21/24 08/21/24 08/21/24 Range/Units 04:30 05:58 11:49 WBC 13.7 H (3.8-10.6) k/uL RBC 3.13 L (3.80-5.40) m/uL Hgb 9.0 L (11.4-16.0) gm/dL Hct 28.3 L (34.0-46.0) % Plt Count 572 H (150-450) k/uL Neutrophils # 12.4 H (1.3-7.7) k/uL Lymphocytes # 0.8 L (1.0-4.8) k/uL ABG pH 7.53 H (7.35-7.45) ABG pO2 67 L (83-108) mmHg ABG HCO3 37 H (21-25) mmol/L ABG Total CO2 38 H (19-24) mmol/L ABG O2 Saturation 93.8 L (94-97) % Hemoglobin 9.2 L (11.4-16.0) gm/dL Sodium (137-145) mmol/L Chloride (98-107) mmol/L Carbon Dioxide (22-30) mmol/L BUN (7-17) mg/dL Glucose (74-99) mg/dL POC Glucose (mg/dL) 158 H (70-110) mg/dL Calcium (8.4-10.2) mg/dL Microbiology - Last 24 Hours (Table) 08/17/24 11:25 Anaerobic Culture - Preliminary Abdomen 08/17/24 11:25 Gram Stain - Preliminary Abdomen Wound Culture - Preliminary Pseudomonas aeruginosa Presumptive MRSA Gram Neg Bacilli Yeast species
[2024-08-21 14:45] LABS: ABG Base Excess 12.4 mmol/L; ABG HCO3 36 mmol/L (21-25); ABG Oxygen Saturation 94.2 % (94-97); ABG PCO2 43 mmHg (35-45); ABG PH 7.53 (7.35-7.45); ABG PO2 68 mmHg (83-108); ABG TCO2 38 mmol/L (19-24); Allen Test Performed? Yes
--- NOTE | 2024-08-21 16:22 | P.PN ---
Subjective Progress Note Date: 08/21/24 SURGICAL PROGRESS NOTE CHIEF COMPLAINT: Respiratory failure HISTORY OF PRESENT ILLNESS: Patient remains intubated and on mechanical ventilation in the ICU. Tube feeds were held this morning. Patient has had no further drainage around the PEG tube site. PHYSICAL EXAM: VITAL SIGNS: Reviewed. GENERAL: Intubated ABDOMEN: Soft. Nondistended. Nontender. PEG tube site and J-tube site clean dry and intact ASSESSMENT: 1. Clogged jejunostomy tube and nausea status post J-tube exchange at bedside 2. Aspiration pneumonia 3. 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 Drainage around PEG tube site PLAN: -Dr. Sanchez inflated the PEG tube balloon. Will monitor for any further drainage around the PEG tube site Physician Endorsement Clerk note has been reviewed by physician. Signing provider agrees with the documented findings, assessment, and plan of care. Attestation Patient seen and examined at bedside. Case discussed in depth with patient's at bedside. I did aspirate the PEG tube balloon and reinflated the PEG tube balloon and readjusted held. We will observe to see if this resolves any drainage around the tube site. Patient's is concerned that those using the tube sites may be too aggressive. Kaitlynn Sanchez, DO Objective - Vital Signs Vital signs: Vital Signs Temp 99.0 F 08/21/24 12:00 Pulse 80 08/21/24 15:08 Resp 15 08/21/24 15:00 BP 85/57 08/17/24 16:15 Pulse Ox 95 08/21/24 15:10 FiO2 40 08/21/24 15:13 Intake & Output 08/20/24 08/21/24 08/21/24 18:59 06:59 18:59 Intake Total 1004.550 901.258 794.709 Output Total 1455 1094 2950 Balance -450.450 -1113.742 -835.291 Weight 55.6 kg 56.9 kg 56.9 kg Intake: IV 276 276 617.0 0.9 NS 240 240 80 A Line 36 36 27 Cefepime 2 gm In Sodium 100 Chloride 0.9% 100 ml @ 25 mls/hr IVPB Q8HR [facility] Rx# :[id number] Diltiazem 125 mg In 60.0 Sodium Chloride 0.9% 100 ml @ 7.5 MG/HR 7.5 mls/hr IV .[id number] [facility] Rx#: [id number] Potassium Chloride 20 meq 100 In Water For Injection 1 100ml.bag @ 50 mls/hr IVPB Q2H [facility] Rx#: [id number] Vancomycin 1,000 mg In 250 Sodium Chloride 0.9% 250 ml @ 125 mls/hr IVPB Q12H [facility] Rx#:[id number] Intake, IV Titration 373.550 405.258 107.709 Amount Amiodarone 450 mg In 250 243.616 Dextrose 5% in Water 250 ml @ 0.5 MG/MIN 16.667 mls/hr IV .Q15H [facility] Rx#: [id number] Diltiazem 125 mg In 112.25 Sodium Chloride 0.9% 100 ml @ 7.5 MG/HR 7.5 mls/hr IV .[id number] [facility] Rx#: [id number] Norepinephrine 8 mg In 53.634 54.273 Sodium Chloride 0.9% 250 ml @ 0.03 MCG/KG/MIN 3. 251 mls/hr IV .Q24H [facility] Rx#:[id number] propofoL 1,000 mg In 69.916 49.392 53.436 Empty Bag 1 bag @ 15 MCG/ KG/MIN 5.04 mls/hr IV . [id number] [facility] Rx#:[id number] Oral 75 Tube Feeding 190 220 40 Other 90 30 Output: Urine 1455 2015 1580 Stool 50 Other: Voiding Method Indwelling Catheter Indwelling Catheter Indwelling Catheter ABP, PAP, CO, CI - Last Documented Arterial Blood Pressure 138/59 - Labs CBC & Chem 7: 08/21/24 04:30 08/21/24 04:30 Labs: Abnormal Lab Results - Last 24 Hours (Table) 08/20/24 08/20/24 08/21/24 Range/Units 17:32 23:27 04:30 WBC (3.8-10.6) k/uL RBC (3.80-5.40) m/uL Hgb (11.4-16.0) gm/dL Hct (34.0-46.0) % Plt Count (150-450) k/uL Neutrophils # (1.3-7.7) k/uL Lymphocytes # (1.0-4.8) k/uL ABG pH (7.35-7.45) ABG pCO2 (35-45) mmHg ABG pO2 (83-108) mmHg ABG HCO3 (21-25) mmol/L ABG Total CO2 (19-24) mmol/L ABG O2 Saturation (94-97) % Hemoglobin (11.4-16.0) gm/dL Sodium 136 L (137-145) mmol/L Chloride 96 L (98-107) mmol/L Carbon Dioxide 38 H (22-30) mmol/L BUN 33 H (7-17) mg/dL Glucose 167 H (74-99) mg/dL POC Glucose (mg/dL) 170 H 170 H (70-110) mg/dL Calcium 8.3 L (8.4-10.2) mg/dL 08/21/24 08/21/24 08/21/24 Range/Units 04:30 05:58 11:42 WBC 13.7 H (3.8-10.6) k/uL RBC 3.13 L (3.80-5.40) m/uL Hgb 9.0 L (11.4-16.0) gm/dL Hct 28.3 L (34.0-46.0) % Plt Count 572 H (150-450) k/uL Neutrophils # 12.4 H (1.3-7.7) k/uL Lymphocytes # 0.8 L (1.0-4.8) k/uL ABG pH 7.53 H 7.52 H (7.35-7.45) ABG pCO2 46 H (35-45) mmHg ABG pO2 67 L 63 L (83-108) mmHg ABG HCO3 37 H 38 H (21-25) mmol/L ABG Total CO2 38 H 39 H (19-24) mmol/L ABG O2 Saturation 93.8 L 92.5 L (94-97) % Hemoglobin 9.2 L 9.9 L (11.4-16.0) gm/dL Sodium (137-145) mmol/L Chloride (98-107) mmol/L Carbon Dioxide (22-30) mmol/L BUN (7-17) mg/dL Glucose (74-99) mg/dL POC Glucose (mg/dL) (70-110) mg/dL Calcium (8.4-10.2) mg/dL 08/21/24 08/21/24 Range/Units 11:49 14:41 WBC (3.8-10.6) k/uL RBC (3.80-5.40) m/uL Hgb (11.4-16.0) gm/dL Hct (34.0-46.0) % Plt Count (150-450) k/uL Neutrophils # (1.3-7.7) k/uL Lymphocytes # (1.0-4.8) k/uL ABG pH 7.53 H (7.35-7.45) ABG pCO2 (35-45) mmHg ABG pO2 68 L (83-108) mmHg ABG HCO3 36 H (21-25) mmol/L ABG Total CO2 38 H (19-24) mmol/L ABG O2 Saturation (94-97) % Hemoglobin 9.6 L (11.4-16.0) gm/dL Sodium (137-145) mmol/L Chloride (98-107) mmol/L Carbon Dioxide (22-30) mmol/L BUN (7-17) mg/dL Glucose (74-99) mg/dL POC Glucose (mg/dL) 158 H (70-110) mg/dL Calcium (8.4-10.2) mg/dL Microbiology - Last 24 Hours (Table) 08/17/24 11:25 Anaerobic Culture - Preliminary Abdomen 08/17/24 11:25 Gram Stain - Preliminary Abdomen Wound Culture - Preliminary Pseudomonas aeruginosa Presumptive MRSA Gram Neg Bacilli Yeast species
[2024-08-21 17:33] LABS: Glucose,Whole Blood 150 mg/dL (70-110)
[2024-08-21] MEDS: POTASSIUM BICARBONATE/CIT AC 20 MEQ TABLET.EFF NG-TUBE SCH (19:55)
[2024-08-21 23:39] LABS: Glucose,Whole Blood 153 mg/dL (70-110)
[2024-08-22 05:01] LABS: Basophils % (A) 0 %; Eosinophils % (A) 0 %; HCT 30.7 % (34.0-46.0); HGB 9.7 gm/dL (11.4-16.0); Hypochromasia Slight; Lymphocytes % (A) 4 %; MCH 28.4 pg (25.0-35.0); MCHC 31.5 g/dL (31.0-37.0); MCV 90.1 fL (80.0-100.0); Mean Platelet Volume 8.9; Monocytes # (A) 0.7 k/uL (0-1.0); Monocytes % (A) 3 %; Neutrophils # (A) 20.3 k/uL (1.3-7.7); Neutrophils % (A) 92 %; Platelet Count 614 k/uL (150-450); RBC 3.41 m/uL (3.80-5.40); RDW 15.3 % (11.5-15.5); WBC 22.1 k/uL (3.8-10.6)
[2024-08-22 05:11] LABS: African American GFR (CKD) >90 (>60 ml/min/1.73 sqM); Anion Gap 1 mmol/L; Blood Urea Nitrogen 36 mg/dL (7-17); Calcium 8.9 mg/dL (8.4-10.2); Carbon Dioxide 39 mmol/L (22-30); Chloride 96 mmol/L (98-107); Glucose 149 mg/dL (74-99); Non-African American GFR(CKD) >90 (>60 ml/min/1.73 sqM); Potassium 3.6 mmol/L (3.5-5.1); Sodium 136 mmol/L (137-145)
[2024-08-22] MEDS ORDERED: Potassium Replacement Protocol 1 EACH MISC MISCELLANE PRN (05:18)
[2024-08-22] MEDS: POTASSIUM BICARBONATE/CIT AC 20 MEQ TABLET.EFF NG-TUBE SCH (05:41)
--- NOTE | 2024-08-22 08:43 | XR ---
EXAMINATION TYPE: XR chest 1V portable DATE OF EXAM: 08/22/2024 8:32 AM COMPARISON: None. CLINICAL INDICATION: Female, 64 years old with history of Post extubation follow up, TECHNIQUE: XR chest 1V portable view(s) obtained. FINDINGS: The heart size is mildly prominent. The pulmonary vasculature is normal. Increased lung markings are in upper lung miller. Correlate for atelectasis. Thickening of the left a pex remains present. Small left pleural effusion is present There is staple remaining at the level of the thoracic inlet and the midline. Endotracheal tube has b een removed. IMPRESSION: 1. Increasing lung markings more notable in the upper lung miller. There is improvement of the right lower lobe infiltrate. 2. Small left pleural effusion. [facility], Workstation: [facility], 08/22/2024 8:41 AM
--- NOTE | 2024-08-22 08:49 | P.PN ---
Subjective Progress Note Date: 08/22/24 Principal diagnosis: HPI: [This lady has been extubated she looks good hemodynamically stable. She is on a Cardizem drip at 7.5 and also on amiodarone drip. Her PEG tube has been replaced. Hemodynamically stable maintaining sinus rhythm. I will discontinue the Cardizem drip today. 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 She has paroxysmal atrial fibrillation maintaining sinus rhythm today]. PHYSICIAL EXAM: [Vitals are stable JVD not evident S1-S2 heard normally short systolic murmur lungs reveal fair air entry abdomen is soft lower extremities reveal diminished pulses Central nervous system]. IMPRESSION: 1. [Aspiration pneumonia and respiratory failure extubated. 2. [Paroxysmal atrial fibrillation currently in sinus rhythm hemodynamically stable]. 3. [History of head and neck cancer s/p surgery and reconstructive surgery with PEG tube difficulty to swallow]. 4. [History of DVT]. 5. []. RECOMMENDATIONS: [Discontinue intravenous Cardizem continue amiodarone for now and once she is able to take nutrition through the PEG tube we will switch amiodarone to oral form. Discussed my thoughts in detail with the patient. She is maintaining sinus rhythm and extubated making progress]. Objective - Vital Signs Vital signs: Vital Signs Temp 98.9 F 08/22/24 08:00 Pulse 86 08/22/24 08:02 Resp 30 H 08/22/24 08:00 BP 85/57 08/17/24 16:15 Pulse Ox 88 L 08/22/24 08:00 FiO2 40 08/21/24 15:13 Intake & Output 08/21/24 08/22/24 08/22/24 18:59 06:59 18:59 Intake Total 1199.459 788.5 227.25 Output Total 2130 1750 160 Balance -930.541 -961.5 67.25 Weight 56.9 kg 55.6 kg Intake: IV 908.5 298.5 46 0.9 NS 140 240 40 A Line 36 36 6 Anidulafungin 100 mg In 100 Sodium Chloride 0.9% 100 ml @ 84 mls/hr IVPB DAILY @1700 [facility] Rx#:[id number] Cefepime 2 gm In Sodium 200 Chloride 0.9% 100 ml @ 25 mls/hr IVPB Q8HR [facility] Rx# :[id number] Diltiazem 125 mg In 82.5 22.5 Sodium Chloride 0.9% 100 ml @ 7.5 MG/HR 7.5 mls/hr IV .[id number] [facility] Rx#: [id number] Potassium Chloride 20 meq 100 In Water For Injection 1 100ml.bag @ 50 mls/hr IVPB Q2H [facility] Rx#: [id number] Vancomycin 1,000 mg In 250 Sodium Chloride 0.9% 250 ml @ 125 mls/hr IVPB Q12H [facility] Rx#:[id number] Intake, IV Titration 220.959 250 111.25 Amount Amiodarone 450 mg In 250 Dextrose 5% in Water 250 ml @ 0.5 MG/MIN 16.667 mls/hr IV .Q15H [facility] Rx#: [id number] Diltiazem 125 mg In 113.25 111.25 Sodium Chloride 0.9% 100 ml @ 7.5 MG/HR 7.5 mls/hr IV .[id number] [facility] Rx#: [id number] Norepinephrine 8 mg In 54.273 Sodium Chloride 0.9% 250 ml @ 0.03 MCG/KG/MIN 3. 251 mls/hr IV .Q24H [facility] Rx#:[id number] propofoL 1,000 mg In 53.436 Empty Bag 1 bag @ 15 MCG/ KG/MIN 5.04 mls/hr IV . [id number] [facility] Rx#:[id number] Tube Feeding 40 240 40 Other 30 30 Output: Urine 2080 1750 160 Stool 50 Other: Voiding Method Indwelling Catheter Indwelling Catheter ABP, PAP, CO, CI - Last Documented Arterial Blood Pressure 146/64 - Labs CBC & Chem 7: 08/22/24 04:30 08/22/24 04:30 Labs: Abnormal Lab Results - Last 24 Hours (Table) 08/21/24 08/21/24 08/21/24 Range/Units 11:42 11:49 14:41 WBC (3.8-10.6) k/uL RBC (3.80-5.40) m/uL Hgb (11.4-16.0) gm/dL Hct (34.0-46.0) % Plt Count (150-450) k/uL Neutrophils # (1.3-7.7) k/uL ABG pH 7.52 H 7.53 H (7.35-7.45) ABG pCO2 46 H (35-45) mmHg ABG pO2 63 L 68 L (83-108) mmHg ABG HCO3 38 H 36 H (21-25) mmol/L ABG Total CO2 39 H 38 H (19-24) mmol/L ABG O2 Saturation 92.5 L (94-97) % Hemoglobin 9.9 L 9.6 L (11.4-16.0) gm/dL Sodium (137-145) mmol/L Chloride (98-107) mmol/L Carbon Dioxide (22-30) mmol/L BUN (7-17) mg/dL Glucose (74-99) mg/dL POC Glucose (mg/dL) 158 H (70-110) mg/dL 08/21/24 08/21/24 08/22/24 Range/Units 17:32 23:36 04:30 WBC 22.1 H (3.8-10.6) k/uL RBC 3.41 L (3.80-5.40) m/uL Hgb 9.7 L (11.4-16.0) gm/dL Hct 30.7 L (34.0-46.0) % Plt Count 614 H (150-450) k/uL Neutrophils # 20.3 H (1.3-7.7) k/uL ABG pH (7.35-7.45) ABG pCO2 (35-45) mmHg ABG pO2 (83-108) mmHg ABG HCO3 (21-25) mmol/L ABG Total CO2 (19-24) mmol/L ABG O2 Saturation (94-97) % Hemoglobin (11.4-16.0) gm/dL Sodium (137-145) mmol/L Chloride (98-107) mmol/L Carbon Dioxide (22-30) mmol/L BUN (7-17) mg/dL Glucose (74-99) mg/dL POC Glucose (mg/dL) 150 H 153 H (70-110) mg/dL 08/22/24 Range/Units 04:30 WBC (3.8-10.6) k/uL RBC (3.80-5.40) m/uL Hgb (11.4-16.0) gm/dL Hct (34.0-46.0) % Plt Count (150-450) k/uL Neutrophils # (1.3-7.7) k/uL ABG pH (7.35-7.45) ABG pCO2 (35-45) mmHg ABG pO2 (83-108) mmHg ABG HCO3 (21-25) mmol/L ABG Total CO2 (19-24) mmol/L ABG O2 Saturation (94-97) % Hemoglobin (11.4-16.0) gm/dL Sodium 136 L (137-145) mmol/L Chloride 96 L (98-107) mmol/L Carbon Dioxide 39 H (22-30) mmol/L BUN 36 H (7-17) mg/dL Glucose 149 H (74-99) mg/dL POC Glucose (mg/dL) (70-110) mg/dL Microbiology - Last 24 Hours (Table) 08/17/24 11:25 Anaerobic Culture - Final Abdomen 08/17/24 11:25 Gram Stain - Preliminary Abdomen Wound Culture - Preliminary Pseudomonas aeruginosa Methicillin resist S. aureus Morganella morganii Rosa parapsilosis group
--- NOTE | 2024-08-22 11:12 | XR ---
EXAMINATION TYPE: XR chest 1V portable DATE OF EXAM: 08/22/2024 11:06 AM COMPARISON: 08/22/2024 0820 hours CLINICAL INDICATION: Female, 64 years old with history of possible aspiration, TECHNIQUE: XR chest 1V portable view(s) obtained. FINDINGS: The heart size is normal. The pulmonary vasculature is normal. Retrocardiac opacity is present. There is silhouetting the left diaphragm. Correlate for lower lobe p neumonia. Mild scattered increased tracer in the upper lung miller present previously. Radiopaque for eign body remains at the thoracic inlet level. IMPRESSION: 1. Opacity in the retrocardiac region with silhouetting of the diaphragm. Correlate for pneumonia. Fo llow-up recommended. 2. Exam is stable from earlier exam. [facility], Workstation: [facility], 08/22/2024 11:10 AM
[2024-08-22] MEDS: VANCOMYCIN TROUGH DUE 1 EACH MISC MISCELLANE ONE (11:19)
[2024-08-22 11:45] LABS: Glucose,Whole Blood 175 mg/dL (70-110)
--- NOTE | 2024-08-22 12:46 | P.PN ---
Subjective Progress Note Date: 08/21/24 Principal diagnosis: Reason for follow-up is pneumonia Patient is a 63-year-old female with a past medical history significant for COPD PE seizure disorder pneumonia squamous cell cancer of the base of the tongue and neck patient presenting to the hospital for evaluation of increasing shortness of breath and the patient also have a cough with recent outpatient sputum culture positive for MRSA and Morganella. Patient chest x-ray right lower lobe infiltrate. On today's evaluation that is 08/21/2024,the patient remains to be afebrile, patient is intubated on the vent FiO2 is currently at 45%, patient is currently undergoing weaning trial she was awake and responding to her name with smile no worsening diarrhea has been reported by the nursing staff for any drainage around the feeding tube site she is currently being fed. Patient white count is 13.7 creatinine 0.62 Objective - Vital Signs Vital signs: Vital Signs Temp 98.3 F 08/21/24 08:00 Pulse 77 08/21/24 10:57 Resp 16 08/21/24 10:30 BP 85/57 08/17/24 16:15 Pulse Ox 95 08/21/24 10:30 FiO2 45 08/21/24 10:46 Intake & Output 08/20/24 08/21/24 08/21/24 18:59 06:59 18:59 Intake Total 1004.550 901.258 432.209 Output Total 1455 2015 860 Balance -450.450 -1113.742 -427.791 Weight 55.6 kg 56.9 kg 56.9 kg Intake: IV 276 276 254.5 0.9 NS 240 240 20 A Line 36 36 12 Cefepime 2 gm In Sodium 100 Chloride 0.9% 100 ml @ 25 mls/hr IVPB Q8HR [facility] Rx# :[id number] Diltiazem 125 mg In 22.5 Sodium Chloride 0.9% 100 ml @ 7.5 MG/HR 7.5 mls/hr IV .[id number] [facility] Rx#: [id number] Potassium Chloride 20 meq 100 In Water For Injection 1 100ml.bag @ 50 mls/hr IVPB Q2H [facility] Rx#: [id number] Intake, IV Titration 373.550 405.258 107.709 Amount Amiodarone 450 mg In 250 243.616 Dextrose 5% in Water 250 ml @ 0.5 MG/MIN 16.667 mls/hr IV .Q15H [facility] Rx#: [id number] Diltiazem 125 mg In 112.25 Sodium Chloride 0.9% 100 ml @ 7.5 MG/HR 7.5 mls/hr IV .[id number] [facility] Rx#: [id number] Norepinephrine 8 mg In 53.634 54.273 Sodium Chloride 0.9% 250 ml @ 0.03 MCG/KG/MIN 3. 251 mls/hr IV .Q24H [facility] Rx#:[id number] propofoL 1,000 mg In 69.916 49.392 53.436 Empty Bag 1 bag @ 15 MCG/ KG/MIN 5.04 mls/hr IV . [id number] [facility] Rx#:[id number] Oral 75 Tube Feeding 190 220 40 Other 90 30 Output: Urine 1455 2015 810 Stool 50 Other: Voiding Method Indwelling Catheter Indwelling Catheter Indwelling Catheter ABP, PAP, CO, CI - Last Documented Arterial Blood Pressure 111/52 - Exam GENERAL DESCRIPTION: Elderly female intubated on the vent RESPIRATORY SYSTEM: Unlabored breathing , decreased breath sounds at bases HEART: S1 S2 regular rate and rhythm , ABDOMEN: Soft , no tenderness, redness around the G-tube site improved EXTREMITIES: No edema feet - Labs CBC & Chem 7: 08/22/24 04:30 08/22/24 10:47 Labs: Abnormal Lab Results - Last 24 Hours (Table) 08/20/24 08/20/24 08/20/24 Range/Units 12:10 17:32 23:27 WBC (3.8-10.6) k/uL RBC (3.80-5.40) m/uL Hgb (11.4-16.0) gm/dL Hct (34.0-46.0) % Plt Count (150-450) k/uL Neutrophils # (1.3-7.7) k/uL Lymphocytes # (1.0-4.8) k/uL ABG pH (7.35-7.45) ABG pO2 (83-108) mmHg ABG HCO3 (21-25) mmol/L ABG Total CO2 (19-24) mmol/L ABG O2 Saturation (94-97) % Hemoglobin (11.4-16.0) gm/dL Sodium (137-145) mmol/L Chloride (98-107) mmol/L Carbon Dioxide (22-30) mmol/L BUN (7-17) mg/dL Glucose (74-99) mg/dL POC Glucose (mg/dL) 168 H 170 H 170 H (70-110) mg/dL Calcium (8.4-10.2) mg/dL 08/21/24 08/21/24 08/21/24 Range/Units 04:30 04:30 05:58 WBC 13.7 H (3.8-10.6) k/uL RBC 3.13 L (3.80-5.40) m/uL Hgb 9.0 L (11.4-16.0) gm/dL Hct 28.3 L (34.0-46.0) % Plt Count 572 H (150-450) k/uL Neutrophils # 12.4 H (1.3-7.7) k/uL Lymphocytes # 0.8 L (1.0-4.8) k/uL ABG pH 7.53 H (7.35-7.45) ABG pO2 67 L (83-108) mmHg ABG HCO3 37 H (21-25) mmol/L ABG Total CO2 38 H (19-24) mmol/L ABG O2 Saturation 93.8 L (94-97) % Hemoglobin 9.2 L (11.4-16.0) gm/dL Sodium 136 L (137-145) mmol/L Chloride 96 L (98-107) mmol/L Carbon Dioxide 38 H (22-30) mmol/L BUN 33 H (7-17) mg/dL Glucose 167 H (74-99) mg/dL POC Glucose (mg/dL) (70-110) mg/dL Calcium 8.3 L (8.4-10.2) mg/dL Microbiology - Last 24 Hours (Table) 08/17/24 11:25 Anaerobic Culture - Preliminary Abdomen 08/17/24 11:25 Gram Stain - Preliminary Abdomen Wound Culture - Preliminary Pseudomonas aeruginosa Presumptive MRSA Gram Neg Bacilli Yeast species Assessment and Plan (1) MRSA (methicillin resistant Staphylococcus aureus) infection Current Visit: Yes Status: Acute Code(s): A49.02 - METHICILLIN RESIS STAPH INFECTION, UNSP SITE SNOMED Code(s): 289536364 (2) Allergy to sulfa drugs Current Visit: Yes Status: Acute Code(s): Z88.2 - ALLERGY STATUS TO SULFONAMIDES SNOMED Code(s): 50845347 (3) Failure of outpatient treatment Current Visit: Yes Status: Acute Code(s): Z78.9 - OTHER SPECIFIED HEALTH STATUS SNOMED Code(s): 122418783 (4) Pneumonia Current Visit: Yes Status: Acute Code(s): J18.9 - PNEUMONIA, UNSPECIFIED ORGANISM SNOMED Code(s): 978828411 Plan: 1patient with acute respiratory failure currently on the ventilator which is likely multifactorial likely component of A-fib with RVR/CHF and pneumonia the sputum has been growing MRSA and Morganella, patient is currently afebrile and white count has normalized chest x-ray from this morning showing mostly CHF and improving CHF pattern patient did have a CT done on 08/17/2024 that was suggestive of left upper lobe consolidation/mass which the family has been concerned about it has been discussed in detail for better evaluation she may need bronchoscopy however per pulmonary note patient was not stable enough to go for the bronchoscopy and wants to do CAT scan in the outpatient setting 2-patient also have some drainage around the feeding tube site which has been cultured per granddaughter request and is growing multiple pathogen including Pseudomonas which is sensitive to cefepime and MRSA 3-patient also have significant diarrhea requiring fecal management system placement, stool for C. difficile has been negative, continue with Questran for symptomatic relief 4-patient white count slightly up more likely related to Solu-Medrol and will monitor closely for now continue with vancomycin pharmacy to dose watching her kidney function closely and cefepime along with Eraxis and daughter at the bedside questions answered Dictation was produced using [employer] dictation software. please excuse any grammatical, word or spelling errors. Time with Patient: Less than 30
--- NOTE | 2024-08-22 12:49 | P.PN ---
Subjective Progress Note Date: 08/22/24 Principal diagnosis: Reason for follow-up is pneumonia Patient is a 63-year-old female with a past medical history significant for COPD PE seizure disorder pneumonia squamous cell cancer of the base of the tongue and neck patient presenting to the hospital for evaluation of increasing shortness of breath and the patient also have a cough with recent outpatient sputum culture positive for MRSA and Morganella. Patient chest x-ray right lower lobe infiltrate. On today's evaluation that is 08/22/2024, the patient continues to be afebrile, the patient has been extubated and is currently breathing comfortably on nasal cannula oxygen however requiring high flow O2 denies any chest pain or worsening cough she did have episode of vomiting x 2 this morning as reported by the at the bedside output in the fecal management system is thickening up as reported by the nursing staff and the patient is tolerating her tube feeds with 0 residuals. Patient white count is up to 22.1 creatinine 0.56 Vanco trough is therapeutic at 18.3 Objective - Vital Signs Vital signs: Vital Signs Temp 98.9 F 08/22/24 08:00 Pulse 65 08/22/24 12:22 Resp 12 08/22/24 11:00 BP 87/65 08/22/24 11:00 Pulse Ox 96 08/22/24 11:08 FiO2 70 08/22/24 11:08 Intake & Output 08/21/24 08/22/24 08/22/24 18:59 06:59 18:59 Intake Total 1199.459 788.5 564.866 Output Total 2130 1750 745 Balance -930.541 -961.5 -180.134 Weight 56.9 kg 55.6 kg 55.6 kg Intake: IV 908.5 298.5 115 0.9 NS 140 240 100 A Line 36 36 15 Anidulafungin 100 mg In 100 Sodium Chloride 0.9% 100 ml @ 84 mls/hr IVPB DAILY @1700 [facility] Rx#:[id number] Cefepime 2 gm In Sodium 200 Chloride 0.9% 100 ml @ 25 mls/hr IVPB Q8HR [facility] Rx# :[id number] Diltiazem 125 mg In 82.5 22.5 Sodium Chloride 0.9% 100 ml @ 7.5 MG/HR 7.5 mls/hr IV .[id number] [facility] Rx#: [id number] Potassium Chloride 20 meq 100 In Water For Injection 1 100ml.bag @ 50 mls/hr IVPB Q2H [facility] Rx#: [id number] Vancomycin 1,000 mg In 250 Sodium Chloride 0.9% 250 ml @ 125 mls/hr IVPB Q12H [facility] Rx#:[id number] Intake, IV Titration 220.959 250 359.866 Amount Amiodarone 450 mg In 250 248.616 Dextrose 5% in Water 250 ml @ 0.5 MG/MIN 16.667 mls/hr IV .Q15H [facility] Rx#: [id number] Diltiazem 125 mg In 113.25 111.25 Sodium Chloride 0.9% 100 ml @ 7.5 MG/HR 7.5 mls/hr IV .[id number] [facility] Rx#: [id number] Norepinephrine 8 mg In 54.273 Sodium Chloride 0.9% 250 ml @ 0.03 MCG/KG/MIN 3. 251 mls/hr IV .Q24H [facility] Rx#:[id number] propofoL 1,000 mg In 53.436 Empty Bag 1 bag @ 15 MCG/ KG/MIN 5.04 mls/hr IV . [id number] [facility] Rx#:[id number] Tube Feeding 40 240 60 Other 30 30 Output: Urine 2080 1750 745 Stool 50 Other: Voiding Method Indwelling Catheter Indwelling Catheter ABP, PAP, CO, CI - Last Documented Arterial Blood Pressure 148/65 - Exam GENERAL DESCRIPTION: Elderly female lying in bed in no distress RESPIRATORY SYSTEM: Unlabored breathing , decreased breath sounds at bases HEART: S1 S2 regular rate and rhythm , ABDOMEN: Soft , no tenderness EXTREMITIES: No edema feet - Labs CBC & Chem 7: 08/22/24 04:30 08/22/24 10:47 Labs: Abnormal Lab Results - Last 24 Hours (Table) 08/21/24 08/21/24 08/21/24 Range/Units 11:42 14:41 17:32 WBC (3.8-10.6) k/uL RBC (3.80-5.40) m/uL Hgb (11.4-16.0) gm/dL Hct (34.0-46.0) % Plt Count (150-450) k/uL Neutrophils # (1.3-7.7) k/uL ABG pH 7.52 H 7.53 H (7.35-7.45) ABG pCO2 46 H (35-45) mmHg ABG pO2 63 L 68 L (83-108) mmHg ABG HCO3 38 H 36 H (21-25) mmol/L ABG Total CO2 39 H 38 H (19-24) mmol/L ABG O2 Saturation 92.5 L (94-97) % Hemoglobin 9.9 L 9.6 L (11.4-16.0) gm/dL Sodium (137-145) mmol/L Chloride (98-107) mmol/L Carbon Dioxide (22-30) mmol/L BUN (7-17) mg/dL Glucose (74-99) mg/dL POC Glucose (mg/dL) 150 H (70-110) mg/dL Magnesium (1.6-2.3) mg/dL 08/21/24 08/22/24 08/22/24 Range/Units 23:36 04:30 04:30 WBC 22.1 H (3.8-10.6) k/uL RBC 3.41 L (3.80-5.40) m/uL Hgb 9.7 L (11.4-16.0) gm/dL Hct 30.7 L (34.0-46.0) % Plt Count 614 H (150-450) k/uL Neutrophils # 20.3 H (1.3-7.7) k/uL ABG pH (7.35-7.45) ABG pCO2 (35-45) mmHg ABG pO2 (83-108) mmHg ABG HCO3 (21-25) mmol/L ABG Total CO2 (19-24) mmol/L ABG O2 Saturation (94-97) % Hemoglobin (11.4-16.0) gm/dL Sodium 136 L (137-145) mmol/L Chloride 96 L (98-107) mmol/L Carbon Dioxide 39 H (22-30) mmol/L BUN 36 H (7-17) mg/dL Glucose 149 H (74-99) mg/dL POC Glucose (mg/dL) 153 H (70-110) mg/dL Magnesium (1.6-2.3) mg/dL 08/22/24 08/22/24 Range/Units 04:30 11:44 WBC (3.8-10.6) k/uL RBC (3.80-5.40) m/uL Hgb (11.4-16.0) gm/dL Hct (34.0-46.0) % Plt Count (150-450) k/uL Neutrophils # (1.3-7.7) k/uL ABG pH (7.35-7.45) ABG pCO2 (35-45) mmHg ABG pO2 (83-108) mmHg ABG HCO3 (21-25) mmol/L ABG Total CO2 (19-24) mmol/L ABG O2 Saturation (94-97) % Hemoglobin (11.4-16.0) gm/dL Sodium (137-145) mmol/L Chloride (98-107) mmol/L Carbon Dioxide (22-30) mmol/L BUN (7-17) mg/dL Glucose (74-99) mg/dL POC Glucose (mg/dL) 175 H (70-110) mg/dL Magnesium 2.6 H (1.6-2.3) mg/dL Microbiology - Last 24 Hours (Table) 08/17/24 11:25 Anaerobic Culture - Final Abdomen 08/17/24 11:25 Gram Stain - Preliminary Abdomen Wound Culture - Preliminary Pseudomonas aeruginosa Methicillin resist S. aureus Morganella morganii [facility] Assessment and Plan (1) MRSA (methicillin resistant Staphylococcus aureus) infection Current Visit: Yes Status: Acute Code(s): A49.02 - METHICILLIN RESIS STAPH INFECTION, UNSP SITE SNOMED Code(s): 089419340 (2) Allergy to sulfa drugs Current Visit: Yes Status: Acute Code(s): Z88.2 - ALLERGY STATUS TO SULFONAMIDES SNOMED Code(s): 37990326 (3) Failure of outpatient treatment Current Visit: Yes Status: Acute Code(s): Z78.9 - OTHER SPECIFIED HEALTH STATUS SNOMED Code(s): 415995252 (4) Pneumonia Current Visit: Yes Status: Acute Code(s): J18.9 - PNEUMONIA, UNSPECIFIED ORGANISM SNOMED Code(s): 868151287 Plan: 1patient with acute respiratory failure currently on the ventilator which is likely multifactorial likely component of A-fib with RVR/CHF and pneumonia the sputum has been growing MRSA and Morganella, patient is currently afebrile and white count has normalized chest x-ray from this morning showing mostly CHF and improving CHF pattern patient did have a CT done on 08/17/2024 that was suggestive of left upper lobe consolidation/mass which the family has been concerned about it has been discussed in detail for better evaluation she may need bronchoscopy however per pulmonary note patient was not stable enough to go for the bronchoscopy and wants to do CAT scan in the outpatient setting 2-patient also have some drainage around the feeding tube site which has been cultured per granddaughter request and is growing multiple pathogen including Pseudomonas which is sensitive to cefepime and MRSA 3-patient also have diarrhea stool for C. difficile has been negative, stool output and consistency has improved per the nursing staff, continue with Questran for symptomatic relief 4-patient white count is up to 22,000 more likely related to Solu-Medrol as no evidence of any worsening of her clinical condition as the patient has been extubated, she has received more than 2 weeks of vancomycin pharmacy to dose as well as cefepime this should be more than enough for a nosocomial pneumonia will discuss further with the pulmonary for possible discontinuation of antibiotics 5patient did have 2 episodes of vomiting possibly due to medication as the patient received 12 pills at the same time before she vomited admitting team to look at the medication list and possible space them out and to discontinue any medication that may not be needed and daughter at the bedside questions answered Dictation was produced using [employer] dictation software. please excuse any grammatical, word or spelling errors. Time with Patient: Less than 30
[2024-08-22] MEDS: POTASSIUM CHLORIDE 10 MEQ in WATER FOR INJECTION 1 100ML.BAG IVPB SCH (12:53)
--- NOTE | 2024-08-22 14:01 | P.PN ---
Subjective Progress Note Date: 08/22/24 Principal diagnosis: Acute hypoxic respiratory failure with bilateral aspiration pneumonia with sepsis and septic shock 08/11/2023, the patient is being seen for a follow-up. Is a 63-year-old female patient with past medical history of oral cancer and previous radical neck disse ction followed by radiation therapy and reconstructive surgery and the patient suffers from chronic dysphagia and the patient has PEG tube. The patient also has previous history of DVT/pulmonary embolism maintained on anticoagulation. She has history of atrial fibrillation, hypothyroidism and seizure disorders. For now, the patient is in the intensive care unit for an acute hypoxic respiratory failure. The patient is currently on Airvo at 60 L with an FiO2 of 90% %. Chest x-ray shows bilateral lower lobe consolidation and possibly some small effusions. Antibiotic coverage is with IV Eraxis, vancomycin and Rocephin. Sputum samples collected on 08/06/2024 was consistent with MRSA, Morganella morganii and strep agalactiae. The patient had developed significant leukocytosis which is downtrending and the white cell count from yesterday was down to 16. Patient also developed atrial fibrillation with rapid ventricular response over the past 24 to 48 hours. The patient based on that was started on Cardizem drip and she is already anticoagulated with Eliquis. She remains on Cardizem at 10 mg an hour. She is also on metoprolol 25 mg p.o. twice daily for rate control. The patient is also on oxygen and Airvo settings this morning is 6 L with an FiO2 of 90%. The patient has a J-tube for feeding receiving Jevity 1.5 at the rate of 40 cc an hour. The J-tube was replaced yesterday. This was done by general surgery. CAT scan of the abdomen done on 08/09/2024 showed that the jejunostomy tube was grossly intact. Nevertheless, it there was evidence of lower lobe consolidations bilaterally worse on the left. 08/12/2023, the patient is being seen for a follow-up. Condition is gradually compensated over the past 24 hours and the patient has become more hypoxic related to her pneumonia. Noted the patient was on high flow oxygen, Airvo 60 L with an FiO2 of 90%. Subsequently, she was given 100% nonrebreather facemask and the patient continued to have episodes of desaturation. At a later stage, overnight, the patient was placed on a BiPAP and currently she is on a BiPAP pre ssure of 15 over 10 cm of water with an FiO2 of 100%. Initially, this morning, she was still desaturating and her blood gas was obtained which showed a pH of 7.33 with a pCO2 of 74 and pO2 of 49. I attended on this patient immediately. I wanted to intubate the patient. However, I do acknowledge that this is going to be an extremely difficult intubation as the patient does not have any ability to open up her mouth due to chronic scarring in her neck muscles and scarring of her jaw and her neck is significantly scarred up and stiff related to previous radiation therapy. While adjusting the BiPAP mask, we improved the leaks and the pulse ox improved currently she is pulse oxing in order of 91 to 93%. Reviewed the chest x-ray from today shows diffuse bilateral airspace disease consistent with pneumonia. No evidence of any pneumothorax. The patient continues to have a congested cough. No significant sputum production. Despite his ongoing hypoxemia, she is breathing comfortably. Her current respiratory rate is in the mid 20s. She is still awake and communicating. No fever. No hemodynamic instability. She remains in atrial fibrillation. Antibiotic coverage remains unchanged and the patient remains on a combination of Rocephin and vancomycin and Eraxis. The fluid balance has been negative over the past 24 hours. The white cell count is at 18.10.8 and this is. Calcium level 6. The patient remains on DuoNeb nebulized treatments. In terms of her ongoing atrial fibrillation, she is on Cardizem drip at 15 mg an hour. She remains on anticoagulation with Eliquis. She is also on metoprololAt a dose of 25 mg p.o. twice a day. No hypotension. Hemodynamically stable. IV fluids are currently at KVO. On 08/13/2024, the patient is being seen for a follow-up. As mentioned, the patient was intubated yesterday and placed on mechanical ventilation due to bilateral pneumonia that was further complicated by an episode of aspiration. This morning, the patient is sedated and the patient is calm and comfortable. She is on assist-control mode of mechanical ventilation. He is on a rate of 16 with a tidal volume of 350 and FiO2 of 50% with a PEEP of 8. The blood gas showed a pH of 7.45 with a pCO2 of 54 and pO2 of 91. Chest x-ray is consistent with diffuse bilateral pulmonary filtrates/pneumonia. Bronchoscopy was also done and another bronchial aspirate was obtained, pending further cultures. She is calm and comfortable on propofol running at 35 mcg/kg/min. Noted post intubation, the patient became hypotensive. Received a liter bolus and currently she is on normal saline at rate of 100 cc an hour. Norepinephrine is running at 0.15 mcg/kg/min. She remains in atrial fibrillation. She is on amiodarone drip at 0.5 mg/min and she is also on Cardizem drip. Slightly tachycardic. Remains on Rocephin and vancomycin and Rocephin will be switched to Zosyn. Lasix will also to be discontinued. Enteral feeding is to be started today. The white cell count of 21 with a hemoglobin 10.3 and a platelet count of 427. Sodium is at 138, BUN 13 creatinine 0.4 and a potassium level is at 3.2 with a bicarb level of 37 On 08/14/2024, the patient is being seen for a follow-up. The patient remains intubated on the mechanical ventilator. Earlier this morning, the patient is on a 30 mcg of propofol and the patient is adequately sedated. She remains on the mechanical ventilator assist-control mode with rate of 16, tidal volume of 350, FiO2 of 50% with a PEEP of 8. Blood gases show a pH of 7.41 with a pCO2 of 51 and pO2 of 82. No significant respiratory secretions. The sputum cultures and the bronchial aspirate this was collected and sent for culture showed presumptive Staph aureus and gram-negative bacillus and the patient remains on broad-spectrum antibiotics and the patient remains on a combination of Zosyn and vancomycin. Chest x-ray findings are essentially unchanged and the patient has diffuse bilateral patchy pulmonary infiltrates consistent with pneumonia. Meanwhile, the patient is on normal saline at rate of 100 cc an hour. Hemod ynamically, she still requiring pressors and the patient is on norepinephrine at 0.06 mcg/kg/min. Earlier this morning, the patient was still tachycardic while being in atrial fibrillation. She was started on Cardizem drip at 5 mg an hour by cardiology. She remains on amiodarone 0.5 mg/min. The patient was also given metoprolol 25 mg p.o. twice daily and the patient remains on anticoagulation with Eliquis. She is receiving enteral feeding for nutritional support with vital high-protein at rate of 10 cc an hour. The white cell count is 14.3 with hemoglobin 9.5 and a platelet count of 375. Sodium is at 137, potassium is at 3.6, BUN is 8. The patient with a creatinine of 0.4 On 08/15/2024, the patient is being seen for a follow-up. On today's evaluation, the patient extremity, comfortable on propofol running at 30 mcg/kg/min. Chest x-ray shows stable bilateral pulmonary filtrates, essentially unchanged. The bronchial lavage that was obtained earlier was positive for MRSA and Morganella morganii and the patient remains on a combination of Zosyn and vancomycin. The patient remains on assist-control mode mechanical ventilation. The patient's current setting includes on assist-control mode with rate of 18, tidal volume of 350, FiO2 40% with a PEEP of 6. Blood gas showed a pH of 7.41 with a pCO2 of 52 and pO2 of 107 and there has been some improvement in the oxygenation. Fluid balance is +3.8 L. The patient remains on low-dose dose of norepinephrine running at 0.02 mcg/kg/min. IV fluids are in the form of normal saline at rate of 100 cc an hour and the patient's cardiac rhythm is converted into sinus. The patient is currently on oral amiodarone. The patient is also on vital high- protein at rate of 42 cc an hour and she is tolerating the enteral feeding. The white cell count of 12.7 with a hemoglobin 9.2 and a platelet count of 377. BUN is 9 with a creatinine of 0.4 and sodium levels at 138 with potassium level of 3.6. No other significant events overnight. On 08/16/2024, the patient is being seen for a follow-up. Remains sedated on propofol running at 30 mcg/kg/min. Chest x-ray still showing extensive bilateral consolidation and the previous bronchoalveolar lavage was consistent with Morganella morganii and MRSA. Remains on Zosyn and vancomycin. Remains on assist-control mode of mechanical ventilation at rate of 16, tidal volume of 350, FiO2 of 60% with a PEEP of 5. The blood gases from today shows a pH of 7.46 with a pCO2 of 53 and pO2 of 71. Fluid balance is positive around 3.8 L over the past 24 hours. IV fluids are currently at KVO. She remains on low- dose norepinephrine running at 0.08 mcg/kg/min. Overnight, the patient deve loped again atrial fibrillation with RVR. She was started on Cardizem drip at 5 mg an hour she is also back on IV amiodarone 0.5 mg/min. Vital high-protein for enteral feeding at rate of 42 cc an hour. The white cell count of 10.7 with a hemoglobin 9.2. Sodium is at 136, BUN is at 9 with a creatinine of 0.3 and a potassium level is at 3.3, needs to be replaced. No other significant events overnight. On 08/17/2024, the patient remains on the mechanical ventilator. This morning, the patient is on propofol for sedation and she is calm and comfortable. At the same time, she is on assist-control mode of mechanical ventilation at rate of 16, tidal volume of 350, FiO2 of 50% with a PEEP of 5. Blood gas showed a pH of 7.55 with a pCO2 of 56 and pO2 of 90. Chest x-ray findings are essentially unchanged. CAT scan of the chest was obtained this morning and it shows bilateral consolidation left more than right consistent with pneumonia and there is also small to moderate-sized pleural effusion. The patient remains on a combination of cefepime and vancomycin and Eraxis. Afebrile. Hemodynamically, she remains on low-dose norepinephrine running at 0.06 mcg/kg/min. Cardiac rhythm is converted to sinus and the patient remains on Cardizem drip at 5 mg an hour and the patient is also on amiodarone drip. The patient was started on diuretics. She is currently on a combination of Lasix and Zaroxolyn. She was receiving IV Lasix 40 mg IV every 8 hours and Zaroxolyn 5 mg p.o. twice a day. Fluid balance is -4.8 L over the past 24 hours. She remains on vital high- protein at rate of 40 cc an hour. The white cell count is 11 with a hemoglobin 9.6 and a platelet count of 383. Sodium is at 135, potassium is at 3.7, serum bicarb is at 44, BUN is 15 with a creatinine of 0.5. Calcium level is at 8.2. Patient was seen today on 08/18/24, remains in the ICU, intubated and mechanical ly ventilated, patient is on assist-control rate of 16 tidal volume 350 FiO2 50% PEEP of 5 ABG showed a pO2 of 98 pCO2 57 pH of 7.46 remains on norepinephrine at 0.03 mcg/kg/min propofol at 30 mcg/kg/min amiodarone 0.5 mg/min patient remains on cefepime and vancomycin she is also on Eraxis. Receiving nutritional support/vital HP at 42 cc/h. Patient has a right groin arterial line and triple-lumen catheter. She has a PEG and J-tube in place, patient remains on antibiotics in the form of cefepime and vancomycin, she had positive sputum for MRSA and Morganella. Opens eyes, does not follow instructions today, patient is sedated, plan is to hold sedation and address mental status off sedation today. WBC count is 12.1 hemoglobin 9.4, Basic metabolic profile is normal bicarb is 14 renal profile is normal chest x-ray continues show bilateral bibasilar infiltrates consistent with aspiration pneumonia minimal improvement compared to baseline Patient was seen today on 08/19/2024 this note was dictated on 08/20 but is actually a note from 08/19/2024, apparently the note from 08/19 was deleted by mistake. At any rate patient was seen on 08/19, remains on mechanical ventilation, remains on assist-control rate of 16 tidal volume 350, FiO2 50% and PEEP of 5G showed a pO2 of 112 pCO2 52 pH of 7.49, patient remains on norepinephrine being titrated accordingly, remains on antibiotics including cefepime and vancomycin she is also on Eraxis. Continues to have significant airspace disease in both lungs. There is also a left upper lobe masslike consolidation in the left upper lobe, it is not clear whether this is a pneumonic process or malignancy. The plan is to address this eventually after the patient gets over this episode of respiratory failure. Patient does have positive sputum for Pseudomonas, and also positive system for Morganella morganii. Is arousable, follows very simple instructions, seems to be generally weak. WBC count 10.1 hemoglobin 8.8, electrolytes are normal BUN is 24 creatinine 0.65. Chest x-ray continues show evidence of bilateral airspace disease left more so than right Patient seen on 08/20/2024 patient remains in the ICU, intubated and mechanically ventilated, she is on assist-control rate of 16 tidal volume 350 FiO2 45% PEEP of 5 ABG showed a pO2 of 72 pCO2 48 pH of 7.51. Continues to use norepinephrine at 0.04 mcg/kg/min remains on propofol at 15 mcg/kg/min patient was transitioned from oral amiodarone to IV amiodarone at 0.5 mg/min she has vital AF at 10 cc/h surgery evaluated her gastric tube and did not feel there is any major concern but recommended trickle feeding patient remains on cefepime vancomycin and Eraxis remains on Lasix at 20 mg IV push every 8 hours patient is also on Eliquis. Abdominal x-rays showed negative findings patient had a peak airway pressure of 26 Plateau pressure of 16 no changes again were made in her vent ilator settings instructed nursing to lower down the dose the dose of norepinephrine and titrate to a mean arterial pressure of 65. Her atrial fibrillation remains poorly controlled and I believe the patient is not going to wean easily with poorly controlled atrial fibrillation. Daughter is at bedside today and she had lots of questions regarding her condition and regarding her left upper lobe masslike consolidation and I explained to her that this is to be addressed down the line once her clinical condition improves, patient is not a great candidate for bronchoscopy at this point or biopsy. Labs today were all reviewed WBC count is 11.6 hemoglobin 9.5, basic metabolic profile is relatively normal BUN is 31 creatinine 0.55 sputum cultures and abdominal wound cultures were reviewed Seen today on 08/21/2024, patient remains in the ICU, still intubated and mechanically ventilated, still on assist-control rate of 16 tidal volume 350 FiO2 45% and PEEP of 5 ABG is marginal with a pO2 of 66 pCO2 44 pH of 7.53 her heart rate is better controlled, patient is now on amiodarone 0.5 mg/min she is also on Cardizem 7.5 mg/h norepinephrine is down to 0.03 mcg/kg/min propofol is off today she was on 20 mcg/kg/min earlier and I recommended stopping propofol, patient will be given trials of weaning she did go on pressure support of 10 with CPAP, however her tidal volumes are noted to be very low and marginal, increase the pressure support up to 12, and my plan is to keep her now at least for the time being on pressure support of 12 and CPAP. Better tidal volumes with pressure support of 12 but again not quite ready for weaning. Patient does have very shallow breathing and small tidal volumes most of the time. Remains on vancomycin and cefepime and Eraxis. ABG on pressure support of 10 look marginal, hence held back on extubation. Earlier today I recommended Lasix and she was given 40 mg IV push as well as her usual dose of Lasix which is 20 mg every 8 hours patient remains on Lasix and on Eliquis. Chest x-ray continues to show bilateral patchy opacities involving the left lung and right lower lobe, more airspace disease in the left lung and continues to have masslike co nsolidation in the left upper lobe apically. WBC count is 13.7 hemoglobin is 9 ABG on pressure support and CPAP seem to be similar to the ABG she had earlier today on assist-control mode of mechanical ventilation. She has relative hypoxia and slight hypercapnia. Patient remains metabolically alkalotic. Patient was evaluated today on 08/22/2024, patient was extubated today, tolerated the extubation quite well, she was on 5 L/min earlier today and no major issues overnight. Patient is on 0.9 normal saline at 20 cc/h she has vital HP at 20 cc/h still on amiodarone at 0.5 mg/min. Rounded on the patient, and she was noted to be doing well, did not seem to be in any distress, however while I was on rounds, I was called back to the room because the patient has had an episode of witnessed nausea and vomiting, and believes that she may have a bit of aspiration, patient desaturated down to the 70s placed on 10 L high flow nasal cannula remained in the high 70s then I recommended that we place the patient on Airvo, this will be titrated accordingly, chest x-ray showed no major change compared to her baseline chest x-ray done earlier today. Patient did not seem to be in any distress. her O2 saturation went up to 97% after placement on Airvo labs today were reviewed WBC count is 22.1 hemoglobin 9.7 electrolytes are normal renal profile is normal except bicarb of 39 BUN is 36 creatinine 0.56 Objective - Vital Signs Vital signs: Vital Signs Temp 97.6 F 08/22/24 12:00 Pulse 65 08/22/24 13:00 Resp 17 08/22/24 13:00 BP 87/65 08/22/24 13:00 Pulse Ox 97 08/22/24 13:00 FiO2 70 08/22/24 12:00 Intake & Output 08/21/24 08/22/24 08/22/24 18:59 06:59 18:59 Intake Total 1199.459 788.5 710.866 Output Total 2130 1750 1145 Balance -930.541 -961.5 -434.134 Weight 56.9 kg 55.6 kg 55.6 kg Intake: IV 908.5 298.5 261 0.9 NS 140 240 140 A Line 36 36 21 Anidulafungin 100 mg In 100 Sodium Chloride 0.9% 100 ml @ 84 mls/hr IVPB DAILY @1700 [facility] Rx#:[id number] Cefepime 2 gm In Sodium 200 100 Chloride 0.9% 100 ml @ 25 mls/hr IVPB Q8HR [facility] Rx# :[id number] Diltiazem 125 mg In 82.5 22.5 Sodium Chloride 0.9% 100 ml @ 7.5 MG/HR 7.5 mls/hr IV .[id number] [facility] Rx#: [id number] Potassium Chloride 20 meq 100 In Water For Injection 1 100ml.bag @ 50 mls/hr IVPB Q2H [facility] Rx#: [id number] Vancomycin 1,000 mg In 250 Sodium Chloride 0.9% 250 ml @ 125 mls/hr IVPB Q12H [facility] Rx#:[id number] Intake, IV Titration 220.959 250 359.866 Amount Amiodarone 450 mg In 250 248.616 Dextrose 5% in Water 250 ml @ 0.5 MG/MIN 16.667 mls/hr IV .Q15H [facility] Rx#: [id number] Diltiazem 125 mg In 113.25 111.25 Sodium Chloride 0.9% 100 ml @ 7.5 MG/HR 7.5 mls/hr IV .[id number] [facility] Rx#: [id number] Norepinephrine 8 mg In 54.273 Sodium Chloride 0.9% 250 ml @ 0.03 MCG/KG/MIN 3. 251 mls/hr IV .Q24H [facility] Rx#:[id number] propofoL 1,000 mg In 53.436 Empty Bag 1 bag @ 15 MCG/ KG/MIN 5.04 mls/hr IV . [id number] [facility] Rx#:[id number] Tube Feeding 40 240 60 Other 30 30 Output: Urine 2080 1750 1145 Stool 50 Other: Voiding Method Indwelling Catheter Indwelling Catheter Indwelling Catheter ABP, PAP, CO, CI - Last Documented Arterial Blood Pressure 134/61 - Exam GENERAL EXAM: 63-year-old female on nasal cannula, not in distress seems to be quite comfortable even post aspiration patient did not look in any distress but nonetheless she required placement on Airvo to get O2 saturation in the 90s. HEAD: Normocephalic and atraumatic EYES: PERRLA, EOMI, nonicteric no neck masses no JVD no stridor NOSE: Clear with pink turbinates. THROA. Surgical scars noted in the neck area CHEST: No chest wall deformity. LUNGS: Diminished breath sounds at the bases no crackles rhonchi or wheezes CVS: Regular rate and rhythm, no S3 gallop, no murmur Abdomen: Evidence of gastrostomy and jejunostomy tubes noted otherwise unremarkable SKIN: No rashes CENTRAL NERVOUS SYSTEM: Patient is awake, oriented x 3 no gross focal deficit except generally weak EXTREMITIES: There is no peripheral edema, clubbing, or cyanosis. Peripheral pulses are intact. - Labs CBC & Chem 7: 08/22/24 04:30 08/22/24 10:47 Labs: Abnormal Lab Results - Last 24 Hours (Table) 08/21/24 08/21/24 08/21/24 Range/Units 11:42 14:41 17:32 WBC (3.8-10.6) k/uL RBC (3.80-5.40) m/uL Hgb (11.4-16.0) gm/dL Hct (34.0-46.0) % Plt Count (150-450) k/uL Neutrophils # (1.3-7.7) k/uL ABG pH 7.52 H 7.53 H (7.35-7.45) ABG pCO2 46 H (35-45) mmHg ABG pO2 63 L 68 L (83-108) mmHg ABG HCO3 38 H 36 H (21-25) mmol/L ABG Total CO2 39 H 38 H (19-24) mmol/L ABG O2 Saturation 92.5 L (94-97) % Hemoglobin 9.9 L 9.6 L (11.4-16.0) gm/dL Sodium (137-145) mmol/L Chloride (98-107) mmol/L Carbon Dioxide (22-30) mmol/L BUN (7-17) mg/dL Glucose (74-99) mg/dL POC Glucose (mg/dL) 150 H (70-110) mg/dL Magnesium (1.6-2.3) mg/dL 08/21/24 08/22/24 08/22/24 Range/Units 23:36 04:30 04:30 WBC 22.1 H (3.8-10.6) k/uL RBC 3.41 L (3.80-5.40) m/uL Hgb 9.7 L (11.4-16.0) gm/dL Hct 30.7 L (34.0-46.0) % Plt Count 614 H (150-450) k/uL Neutrophils # 20.3 H (1.3-7.7) k/uL ABG pH (7.35-7.45) ABG pCO2 (35-45) mmHg ABG pO2 (83-108) mmHg ABG HCO3 (21-25) mmol/L ABG Total CO2 (19-24) mmol/L ABG O2 Saturation (94-97) % Hemoglobin (11.4-16.0) gm/dL Sodium 136 L (137-145) mmol/L Chloride 96 L (98-107) mmol/L Carbon Dioxide 39 H (22-30) mmol/L BUN 36 H (7-17) mg/dL Glucose 149 H (74-99) mg/dL POC Glucose (mg/dL) 153 H (70-110) mg/dL Magnesium (1.6-2.3) mg/dL 08/22/24 08/22/24 Range/Units 04:30 11:44 WBC (3.8-10.6) k/uL RBC (3.80-5.40) m/uL Hgb (11.4-16.0) gm/dL Hct (34.0-46.0) % Plt Count (150-450) k/uL Neutrophils # (1.3-7.7) k/uL ABG pH (7.35-7.45) ABG pCO2 (35-45) mmHg ABG pO2 (83-108) mmHg ABG HCO3 (21-25) mmol/L ABG Total CO2 (19-24) mmol/L ABG O2 Saturation (94-97) % Hemoglobin (11.4-16.0) gm/dL Sodium (137-145) mmol/L Chloride (98-107) mmol/L Carbon Dioxide (22-30) mmol/L BUN (7-17) mg/dL Glucose (74-99) mg/dL POC Glucose (mg/dL) 175 H (70-110) mg/dL Magnesium 2.6 H (1.6-2.3) mg/dL Microbiology - Last 24 Hours (Table) 08/17/24 11:25 Anaerobic Culture - Final Abdomen 08/17/24 11:25 Gram Stain - Preliminary Abdomen Wound Culture - Preliminary Pseudomonas aeruginosa Methicillin resist S. 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 with radiation therapy followed by reconstructive surgery Chronic dysphagia with chronic aspiration patient had PEG tube and jejunostomy tube placed for enteral nutrition History of radiation pneumonitis History of DVT and pulmonary embolism remains on Eliquis Hypothyroidism History of seizure disorder Left upper lobe consolidation, seems to be better based on chest x-ray today however the patient will eventually need a repeat CT of the chest to fully evaluate that left upper lobe masslike consolidation Acute witnessed aspiration of her stomach content while in the ICU today 08/22/19 2 5, with desaturation improved postplacement on Airvo. Recommendation: Continue to monitor patient in ICU Hold enteral feeding for now since the patient had a witnessed aspiration may have to go slower down the line with enteral feeding Continue GI and DVT prophylaxis Continue diuretics Continue antibiotics and antifungal, as per infectious disease on the case Continue amiodarone, and Cardizem, as per cardiology Continue metoprolol Continue Eliquis Continue bronchodilators Continue Airvo and titrate accordingly to keep O2 saturation above 90% Remains critically ill critical care time is over 30 minutes Time with Patient: Greater than 30
[2024-08-22] MEDS: ONDANSETRON 4 MG/2 ML VIAL IVP PRN (15:10)
--- NOTE | 2024-08-22 16:49 | P.PN ---
Subjective Progress Note Date: 08/22/24 63 years old female with past medical history of multiple medical problems. Patient called her PCP office of Dr. Anderson and talked to his nurse practitioner Lynnette from she sees in the office complaining from little shortness of breath for the last 4 to 5 days with some cough and phlegm Associated with left lateral chest pain about 7/10 that is worse with coughing and deep breath. 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 Will BMP and LFTs were unremarkable as well as INR proBNP is 248 Chest x-ray showing left lower lobe infiltrate suspicious for pneumonia Patient was started on IV vancomycin and Zosyn and normal saline with pulmonary and ID team consult 08/22/2024 --the patient continues to be afebrile, the patient has been extubated and is currently breathing comfortably on nasal cannula oxygen however requiring high flow O2 denies any chest pain or worsening cough she did have episode of vomiting x 3 this morning as reported by the at the bedside output in the fecal management system is thickening up as reported by the nursing staff and the patient is tolerating her tube feeds with 0 residuals. Patient white count is up to 22.1 creatinine 0.56 Vanco trough is therapeutic at 18. -- Family requesting medications to be spaced out Objective - Vital Signs Vital signs: Vital Signs Temp 98.9 F 08/22/24 08:00 Pulse 70 08/22/24 11:00 Resp 12 08/22/24 11:00 BP 87/65 08/22/24 11:00 Pulse Ox 96 08/22/24 11:08 FiO2 70 08/22/24 11:08 Intake & Output 08/21/24 08/22/24 08/22/24 18:59 06:59 18:59 Intake Total 1199.459 788.5 564.866 Output Total 2130 1750 745 Balance -930.541 -961.5 -180.134 Weight 56.9 kg 55.6 kg 55.6 kg Intake: IV 908.5 298.5 115 0.9 NS 140 240 100 A Line 36 36 15 Anidulafungin 100 mg In 100 Sodium Chloride 0.9% 100 ml @ 84 mls/hr IVPB DAILY @1700 [facility] Rx#:[id number] Cefepime 2 gm In Sodium 200 Chloride 0.9% 100 ml @ 25 mls/hr IVPB Q8HR [facility] Rx# :[id number] Diltiazem 125 mg In 82.5 22.5 Sodium Chloride 0.9% 100 ml @ 7.5 MG/HR 7.5 mls/hr IV .[id number] [facility] Rx#: [id number] Potassium Chloride 20 meq 100 In Water For Injection 1 100ml.bag @ 50 mls/hr IVPB Q2H [facility] Rx#: [id number] Vancomycin 1,000 mg In 250 Sodium Chloride 0.9% 250 ml @ 125 mls/hr IVPB Q12H [facility] Rx#:[id number] Intake, IV Titration 220.959 250 359.866 Amount Amiodarone 450 mg In 250 248.616 Dextrose 5% in Water 250 ml @ 0.5 MG/MIN 16.667 mls/hr IV .Q15H [facility] Rx#: [id number] Diltiazem 125 mg In 113.25 111.25 Sodium Chloride 0.9% 100 ml @ 7.5 MG/HR 7.5 mls/hr IV .[id number] [facility] Rx#: [id number] Norepinephrine 8 mg In 54.273 Sodium Chloride 0.9% 250 ml @ 0.03 MCG/KG/MIN 3. 251 mls/hr IV .Q24H [facility] Rx#:[id number] propofoL 1,000 mg In 53.436 Empty Bag 1 bag @ 15 MCG/ KG/MIN 5.04 mls/hr IV . [id number] [facility] Rx#:[id number] Tube Feeding 40 240 60 Other 30 30 Output: Urine 2080 1750 745 Stool 50 Other: Voiding Method Indwelling Catheter Indwelling Catheter ABP, PAP, CO, CI - Last Documented Arterial Blood Pressure 148/65 - Exam HEENT: Pupils are round and equally reacting to light. EOMI. No scleral icterus. No conjunctival pallor. Normocephalic, atraumatic. No pharyngeal erythema. No thyromegaly. CARDIOVASCULAR: S1 and S2 present. No murmurs, rubs, or gallops. Irregular rate and rhythm PULMONARY coarse breath sounds bilaterally, bilateral crackles audible ABDOMEN: Soft, nontender, nondistended, normoactive bowel sounds. No palpable organomegaly. Jejunostomy tube seen MUSCULOSKELETAL: No joint swelling or deformity. EXTREMITIES: No cyanosis, clubbing, 1+ pitting edema of lower extremities bilaterally NEUROLOGICAL: Intubated SKIN: No rashes. - Labs CBC & Chem 7: 08/22/24 04:30 08/22/24 10:47 Labs: Abnormal Lab Results - Last 24 Hours (Table) 08/21/24 08/21/24 08/21/24 Range/Units 11:42 11:49 14:41 WBC (3.8-10.6) k/uL RBC (3.80-5.40) m/uL Hgb (11.4-16.0) gm/dL Hct (34.0-46.0) % Plt Count (150-450) k/uL Neutrophils # (1.3-7.7) k/uL ABG pH 7.52 H 7.53 H (7.35-7.45) ABG pCO2 46 H (35-45) mmHg ABG pO2 63 L 68 L (83-108) mmHg ABG HCO3 38 H 36 H (21-25) mmol/L ABG Total CO2 39 H 38 H (19-24) mmol/L ABG O2 Saturation 92.5 L (94-97) % Hemoglobin 9.9 L 9.6 L (11.4-16.0) gm/dL Sodium (137-145) mmol/L Chloride (98-107) mmol/L Carbon Dioxide (22-30) mmol/L BUN (7-17) mg/dL Glucose (74-99) mg/dL POC Glucose (mg/dL) 158 H (70-110) mg/dL Magnesium (1.6-2.3) mg/dL 08/21/24 08/21/24 08/22/24 Range/Units 17:32 23:36 04:30 WBC 22.1 H (3.8-10.6) k/uL RBC 3.41 L (3.80-5.40) m/uL Hgb 9.7 L (11.4-16.0) gm/dL Hct 30.7 L (34.0-46.0) % Plt Count 614 H (150-450) k/uL Neutrophils # 20.3 H (1.3-7.7) k/uL ABG pH (7.35-7.45) ABG pCO2 (35-45) mmHg ABG pO2 (83-108) mmHg ABG HCO3 (21-25) mmol/L ABG Total CO2 (19-24) mmol/L ABG O2 Saturation (94-97) % Hemoglobin (11.4-16.0) gm/dL Sodium (137-145) mmol/L Chloride (98-107) mmol/L Carbon Dioxide (22-30) mmol/L BUN (7-17) mg/dL Glucose (74-99) mg/dL POC Glucose (mg/dL) 150 H 153 H (70-110) mg/dL Magnesium (1.6-2.3) mg/dL 08/22/24 08/22/24 Range/Units 04:30 04:30 WBC (3.8-10.6) k/uL RBC (3.80-5.40) m/uL Hgb (11.4-16.0) gm/dL Hct (34.0-46.0) % Plt Count (150-450) k/uL Neutrophils # (1.3-7.7) k/uL ABG pH (7.35-7.45) ABG pCO2 (35-45) mmHg ABG pO2 (83-108) mmHg ABG HCO3 (21-25) mmol/L ABG Total CO2 (19-24) mmol/L ABG O2 Saturation (94-97) % Hemoglobin (11.4-16.0) gm/dL Sodium 136 L (137-145) mmol/L Chloride 96 L (98-107) mmol/L Carbon Dioxide 39 H (22-30) mmol/L BUN 36 H (7-17) mg/dL Glucose 149 H (74-99) mg/dL POC Glucose (mg/dL) (70-110) mg/dL Magnesium 2.6 H (1.6-2.3) mg/dL Microbiology - Last 24 Hours (Table) 08/17/24 11:25 Anaerobic Culture - Final Abdomen 08/17/24 11:25 Gram Stain - Preliminary Abdomen Wound Culture - Preliminary Pseudomonas aeruginosa Methicillin resist S. aureus Morganella morganii Rosa parapsilosis group Assessment and Plan Assessment: Bilateral pneumonia putum sample obtained 08/01 and again on August 06, 2024 positive for MRSA, Morganella, and group B strep and Rosa Sepsis secondary to above Acute hypoxic respiratory failure secondary to above Mild calorie protein malnutrition History of mouth cancer , currently she uses PEG tube for nutrition COPD, not in acute acute issue History of pneumonia not on anticoagulation History of seizure Monitor vital signs Monitor CBC Monitor CMP Continue telemetry monitoring Aggressive bronchopulmonary hygiene Continue vent management Continue weaning trial per critical care Follow-up on blood cultures Continue breathing treatment Continue amiodarone drip, Cardizem drip, Eliquis Strict I's and O's, daily weights, Lasix 20 mg every 8 Continue vancomycin, cefepime, Eraxis Continue tube feeding Continue breathing treatments ID following Pulmonology following Cardiology following
[2024-08-22 18:03] LABS: Glucose,Whole Blood 145 mg/dL (70-110)
--- NOTE | 2024-08-22 18:47 | P.PN ---
Progress Note - Text Progress Note Date: 08/22/24 CHIEF COMPLAINT: Respiratory failure HISTORY OF PRESENT ILLNESS: Patient has been extubated and currently on high flow nasal cannula. Tube Feeds have been held by ICU because of nausea and vomiting. PHYSICAL EXAM: VITAL SIGNS: Reviewed. GENERAL: Intubated ABDOMEN: Soft. Nondistended. Nontender. PEG tube site and J-tube site clean dry and intact ASSESSMENT: 1. Clogged jejunostomy tube and nausea status post J-tube exchange at bedside 2. Aspiration pneumonia 3. 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 Drainage around PEG tube site PLAN: -J tube is no longer leaking. Tube feeds can be resumed when patient no longer has nausea and vomiting Darrius Wick DO [facility] [phone]
[2024-08-22 23:29] LABS: Glucose,Whole Blood 147 mg/dL (70-110)
[2024-08-23 03:44] LABS: HCT 30.6 % (34.0-46.0); HGB 9.7 gm/dL (11.4-16.0); Hypochromasia Slight; MCH 28.7 pg (25.0-35.0); MCHC 31.5 g/dL (31.0-37.0); MCV 90.9 fL (80.0-100.0); Mean Platelet Volume 8.8; Platelet Count 599 k/uL (150-450); RBC 3.37 m/uL (3.80-5.40); RDW 15.1 % (11.5-15.5); WBC 28.1 k/uL (3.8-10.6)
[2024-08-23 04:32] LABS: ALT 25 U/L (4-34); AST 20 U/L (14-36); African American GFR (CKD) >90 (>60 ml/min/1.73 sqM); Albumin 2.6 g/dL (3.5-5.0); Alkaline Phosphatase 119 U/L (38-126); Blood Urea Nitrogen 34 mg/dL (7-17); Calcium 8.9 mg/dL (8.4-10.2); Chloride 94 mmol/L (98-107); Glucose 147 mg/dL (74-99); Magnesium 2.5 mg/dL (1.6-2.3); Non-African American GFR(CKD) >90 (>60 ml/min/1.73 sqM); Potassium 3.7 mmol/L (3.5-5.1); Sodium 133 mmol/L (137-145); Total Bilirubin 0.3 mg/dL (0.2-1.3); Total Protein 5.7 g/dL (6.3-8.2)
[2024-08-23 04:38] LABS: Anion Gap 3 mmol/L; Carbon Dioxide 36 mmol/L (22-30)
[2024-08-23] MEDS: POTASSIUM BICARBONATE/CIT AC 20 MEQ TABLET.EFF NG-TUBE SCH ×2 (05:32→09:27)
[2024-08-23 05:53] LABS: Glucose,Whole Blood 136 mg/dL (70-110)
--- NOTE | 2024-08-23 09:58 | XR ---
EXAMINATION TYPE: XR chest 1V portable DATE OF EXAM: 08/23/2024 9:43 AM COMPARISON: Chest radiographs from 08/22/2024. CLINICAL INDICATION: Female, 64 years old with history of aspiration; TECHNIQUE: XR chest 1V portable Frontal view of the chest. FINDINGS: Lungs/Pleura: Multifocal airspace opacities. No evidence of pneumothorax or pleural effusion. Pulmonary vascularity: Unremarkable. Heart/mediastinum: Cardiomediastinal silhouette is unremarkable. Musculoskeletal: No acute osseous pathology. Other findings: None IMPRESSION: Similar multifocal airspace opacities. [facility], , 08/23/2024 9:56 AM
--- NOTE | 2024-08-23 11:15 | P.PN ---
Subjective Progress Note Date: 08/23/24 Principal diagnosis: Acute hypoxic respiratory failure with bilateral aspiration pneumonia with sepsis and septic shock 08/11/2023, the patient is being seen for a follow-up. Is a 63-year-old female patient with past medical history of oral cancer and previous radical neck disse ction followed by radiation therapy and reconstructive surgery and the patient suffers from chronic dysphagia and the patient has PEG tube. The patient also has previous history of DVT/pulmonary embolism maintained on anticoagulation. She has history of atrial fibrillation, hypothyroidism and seizure disorders. For now, the patient is in the intensive care unit for an acute hypoxic respiratory failure. The patient is currently on Airvo at 60 L with an FiO2 of 90% %. Chest x-ray shows bilateral lower lobe consolidation and possibly some small effusions. Antibiotic coverage is with IV Eraxis, vancomycin and Rocephin. Sputum samples collected on 08/06/2024 was consistent with MRSA, Morganella morganii and strep agalactiae. The patient had developed significant leukocytosis which is downtrending and the white cell count from yesterday was down to 16. Patient also developed atrial fibrillation with rapid ventricular response over the past 24 to 48 hours. The patient based on that was started on Cardizem drip and she is already anticoagulated with Eliquis. She remains on Cardizem at 10 mg an hour. She is also on metoprolol 25 mg p.o. twice daily for rate control. The patient is also on oxygen and Airvo settings this morning is 6 L with an FiO2 of 90%. The patient has a J-tube for feeding receiving Jevity 1.5 at the rate of 40 cc an hour. The J-tube was replaced yesterday. This was done by general surgery. CAT scan of the abdomen done on 08/09/2024 showed that the jejunostomy tube was grossly intact. Nevertheless, it there was evidence of lower lobe consolidations bilaterally worse on the left. 08/12/2023, the patient is being seen for a follow-up. Condition is gradually compensated over the past 24 hours and the patient has become more hypoxic related to her pneumonia. Noted the patient was on high flow oxygen, Airvo 60 L with an FiO2 of 90%. Subsequently, she was given 100% nonrebreather facemask and the patient continued to have episodes of desaturation. At a later stage, overnight, the patient was placed on a BiPAP and currently she is on a BiPAP pre ssure of 15 over 10 cm of water with an FiO2 of 100%. Initially, this morning, she was still desaturating and her blood gas was obtained which showed a pH of 7.33 with a pCO2 of 74 and pO2 of 49. I attended on this patient immediately. I wanted to intubate the patient. However, I do acknowledge that this is going to be an extremely difficult intubation as the patient does not have any ability to open up her mouth due to chronic scarring in her neck muscles and scarring of her jaw and her neck is significantly scarred up and stiff related to previous radiation therapy. While adjusting the BiPAP mask, we improved the leaks and the pulse ox improved currently she is pulse oxing in order of 91 to 93%. Reviewed the chest x-ray from today shows diffuse bilateral airspace disease consistent with pneumonia. No evidence of any pneumothorax. The patient continues to have a congested cough. No significant sputum production. Despite his ongoing hypoxemia, she is breathing comfortably. Her current respiratory rate is in the mid 20s. She is still awake and communicating. No fever. No hemodynamic instability. She remains in atrial fibrillation. Antibiotic coverage remains unchanged and the patient remains on a combination of Rocephin and vancomycin and Eraxis. The fluid balance has been negative over the past 24 hours. The white cell count is at 18.10.8 and this is. Calcium level 6. The patient remains on DuoNeb nebulized treatments. In terms of her ongoing atrial fibrillation, she is on Cardizem drip at 15 mg an hour. She remains on anticoagulation with Eliquis. She is also on metoprololAt a dose of 25 mg p.o. twice a day. No hypotension. Hemodynamically stable. IV fluids are currently at KVO. On 08/13/2024, the patient is being seen for a follow-up. As mentioned, the patient was intubated yesterday and placed on mechanical ventilation due to bilateral pneumonia that was further complicated by an episode of aspiration. This morning, the patient is sedated and the patient is calm and comfortable. She is on assist-control mode of mechanical ventilation. He is on a rate of 16 with a tidal volume of 350 and FiO2 of 50% with a PEEP of 8. The blood gas showed a pH of 7.45 with a pCO2 of 54 and pO2 of 91. Chest x-ray is consistent with diffuse bilateral pulmonary filtrates/pneumonia. Bronchoscopy was also done and another bronchial aspirate was obtained, pending further cultures. She is calm and comfortable on propofol running at 35 mcg/kg/min. Noted post intubation, the patient became hypotensive. Received a liter bolus and currently she is on normal saline at rate of 100 cc an hour. Norepinephrine is running at 0.15 mcg/kg/min. She remains in atrial fibrillation. She is on amiodarone drip at 0.5 mg/min and she is also on Cardizem drip. Slightly tachycardic. Remains on Rocephin and vancomycin and Rocephin will be switched to Zosyn. Lasix will also to be discontinued. Enteral feeding is to be started today. The white cell count of 21 with a hemoglobin 10.3 and a platelet count of 427. Sodium is at 138, BUN 13 creatinine 0.4 and a potassium level is at 3.2 with a bicarb level of 37 On 08/14/2024, the patient is being seen for a follow-up. The patient remains intubated on the mechanical ventilator. Earlier this morning, the patient is on a 30 mcg of propofol and the patient is adequately sedated. She remains on the mechanical ventilator assist-control mode with rate of 16, tidal volume of 350, FiO2 of 50% with a PEEP of 8. Blood gases show a pH of 7.41 with a pCO2 of 51 and pO2 of 82. No significant respiratory secretions. The sputum cultures and the bronchial aspirate this was collected and sent for culture showed presumptive Staph aureus and gram-negative bacillus and the patient remains on broad-spectrum antibiotics and the patient remains on a combination of Zosyn and vancomycin. Chest x-ray findings are essentially unchanged and the patient has diffuse bilateral patchy pulmonary infiltrates consistent with pneumonia. Meanwhile, the patient is on normal saline at rate of 100 cc an hour. Hemod ynamically, she still requiring pressors and the patient is on norepinephrine at 0.06 mcg/kg/min. Earlier this morning, the patient was still tachycardic while being in atrial fibrillation. She was started on Cardizem drip at 5 mg an hour by cardiology. She remains on amiodarone 0.5 mg/min. The patient was also given metoprolol 25 mg p.o. twice daily and the patient remains on anticoagulation with Eliquis. She is receiving enteral feeding for nutritional support with vital high-protein at rate of 10 cc an hour. The white cell count is 14.3 with hemoglobin 9.5 and a platelet count of 375. Sodium is at 137, potassium is at 3.6, BUN is 8. The patient with a creatinine of 0.4 On 08/15/2024, the patient is being seen for a follow-up. On today's evaluation, the patient extremity, comfortable on propofol running at 30 mcg/kg/min. Chest x-ray shows stable bilateral pulmonary filtrates, essentially unchanged. The bronchial lavage that was obtained earlier was positive for MRSA and Morganella morganii and the patient remains on a combination of Zosyn and vancomycin. The patient remains on assist-control mode mechanical ventilation. The patient's current setting includes on assist-control mode with rate of 18, tidal volume of 350, FiO2 40% with a PEEP of 6. Blood gas showed a pH of 7.41 with a pCO2 of 52 and pO2 of 107 and there has been some improvement in the oxygenation. Fluid balance is +3.8 L. The patient remains on low-dose dose of norepinephrine running at 0.02 mcg/kg/min. IV fluids are in the form of normal saline at rate of 100 cc an hour and the patient's cardiac rhythm is converted into sinus. The patient is currently on oral amiodarone. The patient is also on vital high- protein at rate of 42 cc an hour and she is tolerating the enteral feeding. The white cell count of 12.7 with a hemoglobin 9.2 and a platelet count of 377. BUN is 9 with a creatinine of 0.4 and sodium levels at 138 with potassium level of 3.6. No other significant events overnight. On 08/16/2024, the patient is being seen for a follow-up. Remains sedated on propofol running at 30 mcg/kg/min. Chest x-ray still showing extensive bilateral consolidation and the previous bronchoalveolar lavage was consistent with Morganella morganii and MRSA. Remains on Zosyn and vancomycin. Remains on assist-control mode of mechanical ventilation at rate of 16, tidal volume of 350, FiO2 of 60% with a PEEP of 5. The blood gases from today shows a pH of 7.46 with a pCO2 of 53 and pO2 of 71. Fluid balance is positive around 3.8 L over the past 24 hours. IV fluids are currently at KVO. She remains on low- dose norepinephrine running at 0.08 mcg/kg/min. Overnight, the patient deve loped again atrial fibrillation with RVR. She was started on Cardizem drip at 5 mg an hour she is also back on IV amiodarone 0.5 mg/min. Vital high-protein for enteral feeding at rate of 42 cc an hour. The white cell count of 10.7 with a hemoglobin 9.2. Sodium is at 136, BUN is at 9 with a creatinine of 0.3 and a potassium level is at 3.3, needs to be replaced. No other significant events overnight. On 08/17/2024, the patient remains on the mechanical ventilator. This morning, the patient is on propofol for sedation and she is calm and comfortable. At the same time, she is on assist-control mode of mechanical ventilation at rate of 16, tidal volume of 350, FiO2 of 50% with a PEEP of 5. Blood gas showed a pH of 7.55 with a pCO2 of 56 and pO2 of 90. Chest x-ray findings are essentially unchanged. CAT scan of the chest was obtained this morning and it shows bilateral consolidation left more than right consistent with pneumonia and there is also small to moderate-sized pleural effusion. The patient remains on a combination of cefepime and vancomycin and Eraxis. Afebrile. Hemodynamically, she remains on low-dose norepinephrine running at 0.06 mcg/kg/min. Cardiac rhythm is converted to sinus and the patient remains on Cardizem drip at 5 mg an hour and the patient is also on amiodarone drip. The patient was started on diuretics. She is currently on a combination of Lasix and Zaroxolyn. She was receiving IV Lasix 40 mg IV every 8 hours and Zaroxolyn 5 mg p.o. twice a day. Fluid balance is -4.8 L over the past 24 hours. She remains on vital high- protein at rate of 40 cc an hour. The white cell count is 11 with a hemoglobin 9.6 and a platelet count of 383. Sodium is at 135, potassium is at 3.7, serum bicarb is at 44, BUN is 15 with a creatinine of 0.5. Calcium level is at 8.2. Patient was seen today on 08/18/24, remains in the ICU, intubated and mechanical ly ventilated, patient is on assist-control rate of 16 tidal volume 350 FiO2 50% PEEP of 5 ABG showed a pO2 of 98 pCO2 57 pH of 7.46 remains on norepinephrine at 0.03 mcg/kg/min propofol at 30 mcg/kg/min amiodarone 0.5 mg/min patient remains on cefepime and vancomycin she is also on Eraxis. Receiving nutritional support/vital HP at 42 cc/h. Patient has a right groin arterial line and triple-lumen catheter. She has a PEG and J-tube in place, patient remains on antibiotics in the form of cefepime and vancomycin, she had positive sputum for MRSA and Morganella. Opens eyes, does not follow instructions today, patient is sedated, plan is to hold sedation and address mental status off sedation today. WBC count is 12.1 hemoglobin 9.4, Basic metabolic profile is normal bicarb is 14 renal profile is normal chest x-ray continues show bilateral bibasilar infiltrates consistent with aspiration pneumonia minimal improvement compared to baseline Patient was seen today on 08/19/2024 this note was dictated on 08/20 but is actually a note from 08/19/2024, apparently the note from 08/19 was deleted by mistake. At any rate patient was seen on 08/19, remains on mechanical ventilation, remains on assist-control rate of 16 tidal volume 350, FiO2 50% and PEEP of 5G showed a pO2 of 112 pCO2 52 pH of 7.49, patient remains on norepinephrine being titrated accordingly, remains on antibiotics including cefepime and vancomycin she is also on Eraxis. Continues to have significant airspace disease in both lungs. There is also a left upper lobe masslike consolidation in the left upper lobe, it is not clear whether this is a pneumonic process or malignancy. The plan is to address this eventually after the patient gets over this episode of respiratory failure. Patient does have positive sputum for Pseudomonas, and also positive system for Morganella morganii. Is arousable, follows very simple instructions, seems to be generally weak. WBC count 10.1 hemoglobin 8.8, electrolytes are normal BUN is 24 creatinine 0.65. Chest x-ray continues show evidence of bilateral airspace disease left more so than right Patient seen on 08/20/2024 patient remains in the ICU, intubated and mechanically ventilated, she is on assist-control rate of 16 tidal volume 350 FiO2 45% PEEP of 5 ABG showed a pO2 of 72 pCO2 48 pH of 7.51. Continues to use norepinephrine at 0.04 mcg/kg/min remains on propofol at 15 mcg/kg/min patient was transitioned from oral amiodarone to IV amiodarone at 0.5 mg/min she has vital AF at 10 cc/h surgery evaluated her gastric tube and did not feel there is any major concern but recommended trickle feeding patient remains on cefepime vancomycin and Eraxis remains on Lasix at 20 mg IV push every 8 hours patient is also on Eliquis. Abdominal x-rays showed negative findings patient had a peak airway pressure of 26 Plateau pressure of 16 no changes again were made in her vent ilator settings instructed nursing to lower down the dose the dose of norepinephrine and titrate to a mean arterial pressure of 65. Her atrial fibrillation remains poorly controlled and I believe the patient is not going to wean easily with poorly controlled atrial fibrillation. Daughter is at bedside today and she had lots of questions regarding her condition and regarding her left upper lobe masslike consolidation and I explained to her that this is to be addressed down the line once her clinical condition improves, patient is not a great candidate for bronchoscopy at this point or biopsy. Labs today were all reviewed WBC count is 11.6 hemoglobin 9.5, basic metabolic profile is relatively normal BUN is 31 creatinine 0.55 sputum cultures and abdominal wound cultures were reviewed Seen today on 08/21/2024, patient remains in the ICU, still intubated and mechanically ventilated, still on assist-control rate of 16 tidal volume 350 FiO2 45% and PEEP of 5 ABG is marginal with a pO2 of 66 pCO2 44 pH of 7.53 her heart rate is better controlled, patient is now on amiodarone 0.5 mg/min she is also on Cardizem 7.5 mg/h norepinephrine is down to 0.03 mcg/kg/min propofol is off today she was on 20 mcg/kg/min earlier and I recommended stopping propofol, patient will be given trials of weaning she did go on pressure support of 10 with CPAP, however her tidal volumes are noted to be very low and marginal, increase the pressure support up to 12, and my plan is to keep her now at least for the time being on pressure support of 12 and CPAP. Better tidal volumes with pressure support of 12 but again not quite ready for weaning. Patient does have very shallow breathing and small tidal volumes most of the time. Remains on vancomycin and cefepime and Eraxis. ABG on pressure support of 10 look marginal, hence held back on extubation. Earlier today I recommended Lasix and she was given 40 mg IV push as well as her usual dose of Lasix which is 20 mg every 8 hours patient remains on Lasix and on Eliquis. Chest x-ray continues to show bilateral patchy opacities involving the left lung and right lower lobe, more airspace disease in the left lung and continues to have masslike co nsolidation in the left upper lobe apically. WBC count is 13.7 hemoglobin is 9 ABG on pressure support and CPAP seem to be similar to the ABG she had earlier today on assist-control mode of mechanical ventilation. She has relative hypoxia and slight hypercapnia. Patient remains metabolically alkalotic. Patient was evaluated today on 08/22/2024, patient was extubated today, tolerated the extubation quite well, she was on 5 L/min earlier today and no major issues overnight. Patient is on 0.9 normal saline at 20 cc/h she has vital HP at 20 cc/h still on amiodarone at 0.5 mg/min. Rounded on the patient, and she was noted to be doing well, did not seem to be in any distress, however while I was on rounds, I was called back to the room because the patient has had an episode of witnessed nausea and vomiting, and believes that she may have a bit of aspiration, patient desaturated down to the 70s placed on 10 L high flow nasal cannula remained in the high 70s then I recommended that we place the patient on Airvo, this will be titrated accordingly, chest x-ray showed no major change compared to her baseline chest x-ray done earlier today. Patient did not seem to be in any distress. her O2 saturation went up to 97% after placement on Airvo labs today were reviewed WBC count is 22.1 hemoglobin 9.7 electrolytes are normal renal profile is normal except bicarb of 39 BUN is 36 creatinine 0.56 Patient was seen today on 08/23/2024, patient remains in the ICU, remains on Airvo since she had that witnessed episode of aspiration yesterday. She is on 55% FiO2 60 L flow, very comfortable not in distress, patient is back on tube feeding, however she is being fed very slowly 10 cc/h. Remains on amiodarone at 0.5 mg/min, being addressed by cardiology chest x-ray continues show bilateral airspace disease left more so than right. Patient again remains marginal at best, but now that she is off the ventilator, she seems to be doing better. Remains on antibiotics continues to have leukocytosis with WBC count of 28.1 hemoglobin 9.7 electrolytes are normal renal profile is normal procalcitonin yesterday was 0.09. Objective - Vital Signs Vital signs: Vital Signs Temp 97.5 F L 08/23/24 08:00 Pulse 66 08/23/24 10:00 Resp 15 08/23/24 10:00 BP 92/60 08/23/24 10:00 Pulse Ox 95 08/23/24 10:00 FiO2 55 08/23/24 07:29 Intake & Output 08/22/24 08/23/24 08/23/24 18:59 06:59 18:59 Intake Total 1275.866 907.116 162 Output Total 1605 905 230 Balance -329.134 2.116 -68 Weight 55.6 kg 54.5 kg Intake: IV 376 551 72 0.9 NS 240 180 60 A Line 36 21 12 Cefepime 2 gm In Sodium 100 100 Chloride 0.9% 100 ml @ 25 mls/hr IVPB Q8HR [facility] Rx# :[id number] Vancomycin 1,000 mg In 250 Sodium Chloride 0.9% 250 ml @ 125 mls/hr IVPB Q12H [facility] Rx#:[id number] Intake, IV Titration 809.866 236.116 Amount Amiodarone 450 mg In 248.616 236.116 Dextrose 5% in Water 250 ml @ 0.5 MG/MIN 16.667 mls/hr IV .Q15H [facility] Rx#: [id number] Diltiazem 125 mg In 111.25 Sodium Chloride 0.9% 100 ml @ 7.5 MG/HR 7.5 mls/hr IV .[id number] [facility] Rx#: [id number] Potassium Chloride 10 meq 200 In Water For Injection 1 100ml.bag @ 100 mls/hr IVPB Q1H [facility] Rx#: [id number] Vancomycin 1,000 mg In 250 Sodium Chloride 0.9% 250 ml @ 125 mls/hr IVPB Q12H [facility] Rx#:[id number] Tube Feeding 60 40 40 TPN/PPN 20 0.9 NS 20 Other 30 80 30 Output: Urine 1605 905 230 Other: Voiding Method Indwelling Catheter Indwelling Catheter Indwelling Catheter ABP, PAP, CO, CI - Last Documented Arterial Blood Pressure 148/66 - Exam GENERAL EXAM: 63-year-old female on Airvo, not in distress HEAD: Normocephalic and atraumatic EYES: PERRLA, EOMI, nonicteric no neck masses no JVD no stridor NOSE: Clear with pink turbinates. THROA. Surgical scars noted in the neck area CHEST: No chest wall deformity. LUNGS: Diminished breath sounds at the bases no crackles rhonchi or wheezes CVS: Regular rate and rhythm, no S3 gallop, no murmur Abdomen: Evidence of gastrostomy and jejunostomy tubes noted otherwise unremarkable SKIN: No rashes CENTRAL NERVOUS SYSTEM: Patient is awake, oriented x 3 no gross focal deficit except generally weak EXTREMITIES: There is no peripheral edema, clubbing, or cyanosis. Peripheral pulses are intact. - Labs CBC & Chem 7: 08/23/24 03:35 08/23/24 08:08 Labs: Abnormal Lab Results - Last 24 Hours (Table) 08/22/24 08/22/24 08/22/24 Range/Units 11:44 18:01 23:27 WBC (3.8-10.6) k/uL RBC (3.80-5.40) m/uL Hgb (11.4-16.0) gm/dL Hct (34.0-46.0) % Plt Count (150-450) k/uL Sodium (137-145) mmol/L Chloride (98-107) mmol/L Carbon Dioxide (22-30) mmol/L BUN (7-17) mg/dL Glucose (74-99) mg/dL POC Glucose (mg/dL) 175 H 145 H 147 H (70-110) mg/dL Magnesium (1.6-2.3) mg/dL Total Protein (6.3-8.2) g/dL Albumin (3.5-5.0) g/dL 08/23/24 08/23/24 08/23/24 Range/Units 03:35 03:35 05:51 WBC 28.1 H (3.8-10.6) k/uL RBC 3.37 L (3.80-5.40) m/uL Hgb 9.7 L (11.4-16.0) gm/dL Hct 30.6 L (34.0-46.0) % Plt Count 599 H (150-450) k/uL Sodium 133 L (137-145) mmol/L Chloride 94 L (98-107) mmol/L Carbon Dioxide 36 H (22-30) mmol/L BUN 34 H (7-17) mg/dL Glucose 147 H (74-99) mg/dL POC Glucose (mg/dL) 136 H (70-110) mg/dL Magnesium 2.5 H (1.6-2.3) mg/dL Total Protein 5.7 L (6.3-8.2) g/dL Albumin 2.6 L (3.5-5.0) g/dL Assessment and Plan Assessment: Impression: Acute hypoxic respiratory failure secondary to aspiration pneumonia, sputum positive for MRSA and positive for Morganella morganii as well as Rosa, patient remains on Eraxis vancomycin and cefepime, patient was extubated on 08/21/2024 Sepsis with septic shock requiring pressors, today the patient is off norepinephrine and not requiring any pressors but she is still on amiodarone Chronic atrial fibrillation 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 with radiation therapy followed by reconstructive surgery Chronic dysphagia with chronic aspiration patient had PEG tube and jejunostomy tube placed for enteral nutrition History of radiation pneumonitis History of DVT and pulmonary embolism remains on Eliquis Hypothyroidism History of seizure disorder Left upper lobe consolidation, continues to improve Recommendation: Continue Airvo and titrate accordingly Continue to monitor in the ICU for now as the patient remains marginal at best Continue GI and DVT prophylaxis Restart enteral feeding slowly Continue diuretics Continue antibiotics and antifungal, as per infectious disease on the case Continue amiodarone Continue metoprolol Continue Eliquis Continue bronchodilators Ambulate patient out of bed to a bedside chair/recliner and hopefully get some physical therapy involved Will continue to follow Time with Patient: Less than 30
[2024-08-23] MEDS: DULoxetine HCL 30 MG CAPSULE.DR PO SCH (11:20)
[2024-08-23 11:29] LABS: Glucose,Whole Blood 147 mg/dL (70-110)
[2024-08-23] MEDS: ASPIRIN 81 MG PEG/G-TUBE SCH (11:45)
[2024-08-23] MEDS: AMIODARONE 100 MG TAB PO SCH (12:44)
[2024-08-23] MEDS ORDERED: AMIODARONE 100 MG TAB PO SCH (13:00)
--- NOTE | 2024-08-23 13:54 | P.PN ---
Progress Note - Text Progress Note Date: 08/23/24 CHIEF COMPLAINT: Respiratory failure HISTORY OF PRESENT ILLNESS: Patient has been extubated and currently on high flow nasal cannula. PHYSICAL EXAM: VITAL SIGNS: Reviewed. GENERAL: Intubated ABDOMEN: Soft. Nondistended. Nontender. PEG tube site and J-tube site clean dry and intact ASSESSMENT: 1. Clogged jejunostomy tube and nausea status post J-tube exchange at bedside 2. Aspiration pneumonia 3. 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 Drainage around PEG tube site PLAN: -J tube is no longer leaking. Tube feeds running at trickle. Advance as tolerated Darrius Wick DO [facility] [phone]
--- NOTE | 2024-08-23 14:03 | P.PN ---
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 Patient chest x-ray right lower lobe infiltrate. On today's evaluation that is 08/23/2024, patient did not have any fever and denies any chills, patient is breathing comfortably on high flow nasal cannula oxygen he denies having any chest pain or cough has been tolerating her tube feeds and no worsening output in the fecal management system. The patient white count is 28.1, creatinine 0.55, procalcitonin 0.09 Objective - Vital Signs Vital signs: Vital Signs Temp 97.5 F L 08/23/24 08:00 Pulse 65 08/23/24 11:40 Resp 16 08/23/24 11:00 BP 102/69 08/23/24 11:00 Pulse Ox 95 08/23/24 10:00 FiO2 55 08/23/24 07:29 Intake & Output 08/22/24 08/23/24 08/23/24 18:59 06:59 18:59 Intake Total 1275.866 907.116 268 Output Total 1605 905 730 Balance -329.134 2.116 -462 Weight 55.6 kg 54.5 kg Intake: IV 376 551 118 0.9 NS 240 180 100 A Line 36 21 18 Cefepime 2 gm In Sodium 100 100 Chloride 0.9% 100 ml @ 25 mls/hr IVPB Q8HR [facility] Rx# :[id number] Vancomycin 1,000 mg In 250 Sodium Chloride 0.9% 250 ml @ 125 mls/hr IVPB Q12H [facility] Rx#:[id number] Intake, IV Titration 809.866 236.116 Amount Amiodarone 450 mg In 248.616 236.116 Dextrose 5% in Water 250 ml @ 0.5 MG/MIN 16.667 mls/hr IV .Q15H [facility] Rx#: [id number] Diltiazem 125 mg In 111.25 Sodium Chloride 0.9% 100 ml @ 7.5 MG/HR 7.5 mls/hr IV .[id number] [facility] Rx#: [id number] Potassium Chloride 10 meq 200 In Water For Injection 1 100ml.bag @ 100 mls/hr IVPB Q1H [facility] Rx#: [id number] Vancomycin 1,000 mg In 250 Sodium Chloride 0.9% 250 ml @ 125 mls/hr IVPB Q12H [facility] Rx#:[id number] Tube Feeding 60 40 70 TPN/PPN 20 0.9 NS 20 Other 30 80 60 Output: Urine 1605 905 730 Other: Voiding Method Indwelling Catheter Indwelling Catheter Indwelling Catheter ABP, PAP, CO, CI - Last Documented Arterial Blood Pressure 165/78 - Exam GENERAL DESCRIPTION: Elderly female lying in bed in no distress RESPIRATORY SYSTEM: Unlabored breathing , decreased breath sounds at bases HEART: S1 S2 regular rate and rhythm , ABDOMEN: Soft , no tenderness EXTREMITIES: No edema feet - Labs CBC & Chem 7: 08/23/24 03:35 08/23/24 08:08 Labs: Abnormal Lab Results - Last 24 Hours (Table) 08/22/24 08/22/24 08/23/24 Range/Units 18:01 23:27 03:35 WBC 28.1 H (3.8-10.6) k/uL RBC 3.37 L (3.80-5.40) m/uL Hgb 9.7 L (11.4-16.0) gm/dL Hct 30.6 L (34.0-46.0) % Plt Count 599 H (150-450) k/uL Sodium (137-145) mmol/L Chloride (98-107) mmol/L Carbon Dioxide (22-30) mmol/L BUN (7-17) mg/dL Glucose (74-99) mg/dL POC Glucose (mg/dL) 145 H 147 H (70-110) mg/dL Magnesium (1.6-2.3) mg/dL Total Protein (6.3-8.2) g/dL Albumin (3.5-5.0) g/dL 08/23/24 08/23/24 08/23/24 Range/Units 03:35 05:51 11:28 WBC (3.8-10.6) k/uL RBC (3.80-5.40) m/uL Hgb (11.4-16.0) gm/dL Hct (34.0-46.0) % Plt Count (150-450) k/uL Sodium 133 L (137-145) mmol/L Chloride 94 L (98-107) mmol/L Carbon Dioxide 36 H (22-30) mmol/L BUN 34 H (7-17) mg/dL Glucose 147 H (74-99) mg/dL POC Glucose (mg/dL) 136 H 147 H (70-110) mg/dL Magnesium 2.5 H (1.6-2.3) mg/dL Total Protein 5.7 L (6.3-8.2) g/dL Albumin 2.6 L (3.5-5.0) g/dL Assessment and Plan (1) MRSA (methicillin resistant Staphylococcus aureus) infection Current Visit: Yes Status: Acute Code(s): A49.02 - METHICILLIN RESIS STAPH INFECTION, UNSP SITE SNOMED Code(s): 761542549 (2) Allergy to sulfa drugs Current Visit: Yes Status: Acute Code(s): Z88.2 - ALLERGY STATUS TO SULFONAMIDES SNOMED Code(s): 46941753 (3) Failure of outpatient treatment Current Visit: Yes Status: Acute Code(s): Z78.9 - OTHER SPECIFIED HEALTH STATUS SNOMED Code(s): 111860869 (4) Pneumonia Current Visit: Yes Status: Acute Code(s): J18.9 - PNEUMONIA, UNSPECIFIED ORGANISM SNOMED Code(s): 906835225 Plan: 1patient with acute respiratory failure currently on the ventilator which is likely multifactorial likely component of A-fib with RVR/CHF and pneumonia the sputum has been growing MRSA and Morganella, patient is currently afebrile and white count has normalized chest x-ray from this morning showing mostly CHF and improving CHF pattern patient did have a CT done on 08/17/2024 that was suggestive of left upper lobe consolidation/mass which the family has been concerned about it has been discussed in detail for better evaluation she may need bronchoscopy however per pulmonary note patient was not stable enough to go for the bronchoscopy and wants to do CAT scan in the outpatient setting 2-patient also have some drainage around the feeding tube site which has been cultured per granddaughter request and is growing multiple pathogen including Pseudomonas which is sensitive to cefepime and MRSA 3-patient also have diarrhea stool for C. difficile has been negative, stool output and consistency has improved per the nursing staff, continue with Questran for symptomatic relief 4-patient remains to be febrile further worsening of the white count is up to 28,000 more likely related to steroids as no evidence of any worsening clinical condition patient is breathing comfortably and did have normal procalcitonin currently covered with cefepime and vancomycin creatinine is normal and daughter at the bedside questions answered Dictation was produced using [employer] dictation software. please excuse any grammatical, word or spelling errors. Time with Patient: Less than 30
--- NOTE | 2024-08-23 15:20 | P.PN ---
Subjective Progress Note Date: 08/23/24 63 years old female with past medical history of multiple medical problems. Patient called her PCP office of Dr. Anderson and talked to his nurse practitioner Lynnette from she sees in the office complaining from little shortness of breath for the last 4 to 5 days with some cough and phlegm Associated with left lateral chest pain about 7/10 that is worse with coughing and deep breath. 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 Will BMP and LFTs were unremarkable as well as INR proBNP is 248 Chest x-ray showing left lower lobe infiltrate suspicious for pneumonia Patient was started on IV vancomycin and Zosyn and normal saline with pulmonary and ID team consult 08/22/2024 --the patient continues to be afebrile, the patient has been extubated and is currently breathing comfortably on nasal cannula oxygen however requiring high flow O2 denies any chest pain or worsening cough she did have episode of vomiting x 3 this morning as reported by the at the bedside output in the fecal management system is thickening up as reported by the nursing staff and the patient is tolerating her tube feeds with 0 residuals. Patient white count is up to 22.1 creatinine 0.56 Vanco trough is therapeutic at 18. -- Family requesting medications to be spaced out 08/23/2024 -- patient is seen and evaluated in room at bedside; no report of any fever or chills, patient is breathing comfortably on high flow nasal cannula oxygen he denies having any chest pain or cough has been tolerating her tube feeds and no worsening output in the fecal management system; no complaint of any further episodes of vomiting. The patient white count is 28.1, hemoglobin of 9.7, platelet count of 599, sodium 133, potassium 3.7, BUN of 34 with creatinine 0.55, procalcitonin 0.09 --patient with acute respiratory failure; sputum has been growing MRSA and Morganella, patient is currently afebrile; patient did have a CT done on 08/17/2024 that was suggestive of left upper lobe consolidation/mass which the family has been concerned about it has been discussed in detail for better evaluation she may need bronchoscopy however per pulmonary note patient was not stable enough to go for the bronchoscopy and wants to do CAT scan in the outpa tient setting -patient remains afebrile; further worsening of the white count is up to 28,000 more likely related to steroids as no evidence of any worsening clinical condition patient is breathing comfortably and did have normal procalcitonin currently covered with cefepime and vancomycin. Objective - Vital Signs Vital signs: Vital Signs Temp 97.5 F L 08/23/24 08:00 Pulse 66 08/23/24 10:00 Resp 15 08/23/24 10:00 BP 92/60 08/23/24 10:00 Pulse Ox 95 08/23/24 10:00 FiO2 55 08/23/24 07:29 Intake & Output 08/22/24 08/23/24 08/23/24 18:59 06:59 18:59 Intake Total 1275.866 907.116 162 Output Total 1605 905 230 Balance -329.134 2.116 -68 Weight 55.6 kg 54.5 kg Intake: IV 376 551 72 0.9 NS 240 180 60 A Line 36 21 12 Cefepime 2 gm In Sodium 100 100 Chloride 0.9% 100 ml @ 25 mls/hr IVPB Q8HR [facility] Rx# :[id number] Vancomycin 1,000 mg In 250 Sodium Chloride 0.9% 250 ml @ 125 mls/hr IVPB Q12H [facility] Rx#:[id number] Intake, IV Titration 809.866 236.116 Amount Amiodarone 450 mg In 248.616 236.116 Dextrose 5% in Water 250 ml @ 0.5 MG/MIN 16.667 mls/hr IV .Q15H [facility] Rx#: [id number] Diltiazem 125 mg In 111.25 Sodium Chloride 0.9% 100 ml @ 7.5 MG/HR 7.5 mls/hr IV .[id number] [facility] Rx#: [id number] Potassium Chloride 10 meq 200 In Water For Injection 1 100ml.bag @ 100 mls/hr IVPB Q1H [facility] Rx#: [id number] Vancomycin 1,000 mg In 250 Sodium Chloride 0.9% 250 ml @ 125 mls/hr IVPB Q12H [facility] Rx#:[id number] Tube Feeding 60 40 40 TPN/PPN 20 0.9 NS 20 Other 30 80 30 Output: Urine 1605 905 230 Other: Voiding Method Indwelling Catheter Indwelling Catheter Indwelling Catheter ABP, PAP, CO, CI - Last Documented Arterial Blood Pressure 148/66 - Exam HEENT: Pupils are round and equally reacting to light. EOMI. No scleral icterus. No conjunctival pallor. Normocephalic, atraumatic. No pharyngeal erythema. No th yromegaly. CARDIOVASCULAR: S1 and S2 present. No murmurs, rubs, or gallops. Irregular rate and rhythm PULMONARY coarse breath sounds bilaterally, bilateral crackles audible ABDOMEN: Soft, nontender, nondistended, normoactive bowel sounds. No palpable organomegaly. Jejunostomy tube seen MUSCULOSKELETAL: No joint swelling or deformity. EXTREMITIES: No cyanosis, clubbing, 1+ pitting edema of lower extremities bilaterally NEUROLOGICAL: Intubated SKIN: No rashes. - Labs CBC & Chem 7: 08/23/24 03:35 08/23/24 08:08 Labs: Abnormal Lab Results - Last 24 Hours (Table) 08/22/24 08/22/24 08/22/24 Range/Units 11:44 18:01 23:27 WBC (3.8-10.6) k/uL RBC (3.80-5.40) m/uL Hgb (11.4-16.0) gm/dL Hct (34.0-46.0) % Plt Count (150-450) k/uL Sodium (137-145) mmol/L Chloride (98-107) mmol/L Carbon Dioxide (22-30) mmol/L BUN (7-17) mg/dL Glucose (74-99) mg/dL POC Glucose (mg/dL) 175 H 145 H 147 H (70-110) mg/dL Magnesium (1.6-2.3) mg/dL Total Protein (6.3-8.2) g/dL Albumin (3.5-5.0) g/dL 08/23/24 08/23/24 08/23/24 Range/Units 03:35 03:35 05:51 WBC 28.1 H (3.8-10.6) k/uL RBC 3.37 L (3.80-5.40) m/uL Hgb 9.7 L (11.4-16.0) gm/dL Hct 30.6 L (34.0-46.0) % Plt Count 599 H (150-450) k/uL Sodium 133 L (137-145) mmol/L Chloride 94 L (98-107) mmol/L Carbon Dioxide 36 H (22-30) mmol/L BUN 34 H (7-17) mg/dL Glucose 147 H (74-99) mg/dL POC Glucose (mg/dL) 136 H (70-110) mg/dL Magnesium 2.5 H (1.6-2.3) mg/dL Total Protein 5.7 L (6.3-8.2) g/dL Albumin 2.6 L (3.5-5.0) g/dL Assessment and Plan Assessment: Bilateral pneumonia putum sample obtained 08/01 and again on August 06, 2024 po sitive for MRSA, Morganella, and group B strep and Rosa Sepsis secondary to above Acute hypoxic respiratory failure secondary to above Mild calorie protein malnutrition History of mouth cancer , currently she uses PEG tube for nutrition COPD, not in acute acute issue History of pneumonia not on anticoagulation History of seizure Monitor vital signs Monitor CBC Monitor CMP Continue telemetry monitoring Aggressive bronchopulmonary hygiene Continue vent management Continue weaning trial per critical care Follow-up on blood cultures Continue breathing treatment Continue amiodarone drip, Cardizem drip, Eliquis Strict I's and O's, daily weights, Lasix 20 mg every 8 Continue vancomycin, cefepime, Eraxis Continue tube feeding Continue breathing treatments ID following Pulmonology following Cardiology following
[2024-08-23 17:48] LABS: Glucose,Whole Blood 158 mg/dL (70-110)
--- NOTE | 2024-08-23 19:42 | P.PN ---
Subjective Progress Note Date: 08/23/24 HPI: [This lady has been extubated she looks good hemodynamically stable. She is on a Cardizem drip at 7.5 and also on amiodarone drip. Her PEG tube has been replaced. Hemodynamically stable maintaining sinus rhythm. I will discontinue the Cardizem drip today. 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 She has paroxysmal atrial fibrillation maintaining sinus rhythm today]. Progress note 08/23/2024 Patient is maintaining sinus rhythm. Heart rate is around 60 bpm, blood pressure systolic around 120s to 130s mmHg. Still on high flow nasal cannula, PHYSICIAL EXAM: [Vitals are stable JVD not evident S1-S2 heard normally short systolic murmur lungs reveal fair air entry abdomen is soft lower extremities reveal diminished pulses Central nervous system]. IMPRESSION: 1. [Aspiration pneumonia and respiratory failure extubated. 2. [Paroxysmal atrial fibrillation currently in sinus rhythm hemodynamically stable]. 3. [History of head and neck cancer s/p surgery and reconstructive surgery with PEG tube difficulty to swallow]. 4. [History of DVT]. RECOMMENDATIONS: Discontinue IV amiodarone drip, start p.o. amiodarone 200 mg twice daily. Continue anticoagulation with Eliquis 5 mg twice daily Continue Lasix 20 mg IV every 8 hours Continue metoprolol 25 mg twice daily Prognosis guarded, further recommendations to follow Objective - Vital Signs Vital signs: Vital Signs Temp 97.7 F 08/23/24 16:00 Pulse 70 08/23/24 19:00 Resp 21 08/23/24 19:00 BP 111/66 08/23/24 19:00 Pulse Ox 92 L 08/23/24 19:00 FiO2 50 08/23/24 16:00 Intake & Output 08/23/24 08/23/24 08/24/24 06:59 18:59 06:59 Intake Total 907.116 556 43 Output Total 905 1595 125 Balance 2.116 -1039 -82 Weight 54.5 kg Intake: IV 551 256 23 0.9 NS 180 220 20 A Line 21 36 3 Cefepime 2 gm In Sodium 100 Chloride 0.9% 100 ml @ 25 mls/hr IVPB Q8HR [facility] Rx# :[id number] Vancomycin 1,000 mg In 250 Sodium Chloride 0.9% 250 ml @ 125 mls/hr IVPB Q12H [facility] Rx#:[id number] Intake, IV Titration 236.116 Amount Amiodarone 450 mg In 236.116 Dextrose 5% in Water 250 ml @ 0.5 MG/MIN 16.667 mls/hr IV .Q15H [facility] Rx#: [id number] Tube Feeding 40 190 20 TPN/PPN 20 0.9 NS 20 Other 80 90 Output: Urine 905 1495 125 Stool 100 Other: Voiding Method Indwelling Catheter Indwelling Catheter ABP, PAP, CO, CI - Last Documented Arterial Blood Pressure 154/65 - Labs CBC & Chem 7: 08/23/24 03:35 08/23/24 08:08 Labs: Abnormal Lab Results - Last 24 Hours (Table) 08/22/24 08/23/24 08/23/24 Range/Units 23:27 03:35 03:35 WBC 28.1 H (3.8-10.6) k/uL RBC 3.37 L (3.80-5.40) m/uL Hgb 9.7 L (11.4-16.0) gm/dL Hct 30.6 L (34.0-46.0) % Plt Count 599 H (150-450) k/uL Sodium 133 L (137-145) mmol/L Chloride 94 L (98-107) mmol/L Carbon Dioxide 36 H (22-30) mmol/L BUN 34 H (7-17) mg/dL Glucose 147 H (74-99) mg/dL POC Glucose (mg/dL) 147 H (70-110) mg/dL Magnesium 2.5 H (1.6-2.3) mg/dL Total Protein 5.7 L (6.3-8.2) g/dL Albumin 2.6 L (3.5-5.0) g/dL 08/23/24 08/23/24 08/23/24 Range/Units 05:51 11:28 17:47 WBC (3.8-10.6) k/uL RBC (3.80-5.40) m/uL Hgb (11.4-16.0) gm/dL Hct (34.0-46.0) % Plt Count (150-450) k/uL Sodium (137-145) mmol/L Chloride (98-107) mmol/L Carbon Dioxide (22-30) mmol/L BUN (7-17) mg/dL Glucose (74-99) mg/dL POC Glucose (mg/dL) 136 H 147 H 158 H (70-110) mg/dL Magnesium (1.6-2.3) mg/dL Total Protein (6.3-8.2) g/dL Albumin (3.5-5.0) g/dL Microbiology - Last 24 Hours (Table) 08/17/24 11:25 Gram Stain - Final Abdomen Wound Culture - Final Pseudomonas aeruginosa Methicillin resist S. aureus Morganella morganii Rosa parapsilosis group
[2024-08-23 23:37] LABS: Glucose,Whole Blood 162 mg/dL (70-110)
[2024-08-24 04:16] LABS: HCT 33.4 % (34.0-46.0); HGB 10.5 gm/dL (11.4-16.0); Hypochromasia Moderate; MCH 28.7 pg (25.0-35.0); MCHC 31.4 g/dL (31.0-37.0); MCV 91.4 fL (80.0-100.0); Mean Platelet Volume 8.4; Platelet Count 719 k/uL (150-450); RBC 3.65 m/uL (3.80-5.40); WBC 27.3 k/uL (3.8-10.6)
[2024-08-24 04:27] LABS: ALT 23 U/L (4-34); AST 19 U/L (14-36); African American GFR (CKD) >90 (>60 ml/min/1.73 sqM); Albumin 2.7 g/dL (3.5-5.0); Alkaline Phosphatase 126 U/L (38-126); Anion Gap 4 mmol/L; Blood Urea Nitrogen 32 mg/dL (7-17); Carbon Dioxide 39 mmol/L (22-30); Chloride 90 mmol/L (98-107); Glucose 159 mg/dL (74-99); Non-African American GFR(CKD) >90 (>60 ml/min/1.73 sqM); Potassium 3.9 mmol/L (3.5-5.1); Sodium 133 mmol/L (137-145); Total Bilirubin 0.2 mg/dL (0.2-1.3); Total Protein 5.9 g/dL (6.3-8.2)
[2024-08-24] MEDS: POTASSIUM BICARBONATE/CIT AC 20 MEQ TABLET.EFF NG-TUBE SCH (05:22)
[2024-08-24 05:54] LABS: Glucose,Whole Blood 157 mg/dL (70-110)
[2024-08-24] MEDS: FUROSEMIDE 10 MG/ML 4 ML VIAL IV STA (10:44)
--- NOTE | 2024-08-24 11:22 | P.PN ---
Subjective Progress Note Date: 08/24/24 Principal diagnosis: Acute hypoxic respiratory failure with bilateral aspiration pneumonia with sepsis and septic shock 08/11/2023, the patient is being seen for a follow-up. Is a 63-year-old female patient with past medical history of oral cancer and previous radical neck disse ction followed by radiation therapy and reconstructive surgery and the patient suffers from chronic dysphagia and the patient has PEG tube. The patient also has previous history of DVT/pulmonary embolism maintained on anticoagulation. She has history of atrial fibrillation, hypothyroidism and seizure disorders. For now, the patient is in the intensive care unit for an acute hypoxic respiratory failure. The patient is currently on Airvo at 60 L with an FiO2 of 90% %. Chest x-ray shows bilateral lower lobe consolidation and possibly some small effusions. Antibiotic coverage is with IV Eraxis, vancomycin and Rocephin. Sputum samples collected on 08/06/2024 was consistent with MRSA, Morganella morganii and strep agalactiae. The patient had developed significant leukocytosis which is downtrending and the white cell count from yesterday was down to 16. Patient also developed atrial fibrillation with rapid ventricular response over the past 24 to 48 hours. The patient based on that was started on Cardizem drip and she is already anticoagulated with Eliquis. She remains on Cardizem at 10 mg an hour. She is also on metoprolol 25 mg p.o. twice daily for rate control. The patient is also on oxygen and Airvo settings this morning is 6 L with an FiO2 of 90%. The patient has a J-tube for feeding receiving Jevity 1.5 at the rate of 40 cc an hour. The J-tube was replaced yesterday. This was done by general surgery. CAT scan of the abdomen done on 08/09/2024 showed that the jejunostomy tube was grossly intact. Nevertheless, it there was evidence of lower lobe consolidations bilaterally worse on the left. 08/12/2023, the patient is being seen for a follow-up. Condition is gradually compensated over the past 24 hours and the patient has become more hypoxic related to her pneumonia. Noted the patient was on high flow oxygen, Airvo 60 L with an FiO2 of 90%. Subsequently, she was given 100% nonrebreather facemask and the patient continued to have episodes of desaturation. At a later stage, overnight, the patient was placed on a BiPAP and currently she is on a BiPAP pre ssure of 15 over 10 cm of water with an FiO2 of 100%. Initially, this morning, she was still desaturating and her blood gas was obtained which showed a pH of 7.33 with a pCO2 of 74 and pO2 of 49. I attended on this patient immediately. I wanted to intubate the patient. However, I do acknowledge that this is going to be an extremely difficult intubation as the patient does not have any ability to open up her mouth due to chronic scarring in her neck muscles and scarring of her jaw and her neck is significantly scarred up and stiff related to previous radiation therapy. While adjusting the BiPAP mask, we improved the leaks and the pulse ox improved currently she is pulse oxing in order of 91 to 93%. Reviewed the chest x-ray from today shows diffuse bilateral airspace disease consistent with pneumonia. No evidence of any pneumothorax. The patient continues to have a congested cough. No significant sputum production. Despite his ongoing hypoxemia, she is breathing comfortably. Her current respiratory rate is in the mid 20s. She is still awake and communicating. No fever. No hemodynamic instability. She remains in atrial fibrillation. Antibiotic coverage remains unchanged and the patient remains on a combination of Rocephin and vancomycin and Eraxis. The fluid balance has been negative over the past 24 hours. The white cell count is at 18.10.8 and this is. Calcium level 6. The patient remains on DuoNeb nebulized treatments. In terms of her ongoing atrial fibrillation, she is on Cardizem drip at 15 mg an hour. She remains on anticoagulation with Eliquis. She is also on metoprololAt a dose of 25 mg p.o. twice a day. No hypotension. Hemodynamically stable. IV fluids are currently at KVO. On 08/13/2024, the patient is being seen for a follow-up. As mentioned, the patient was intubated yesterday and placed on mechanical ventilation due to bilateral pneumonia that was further complicated by an episode of aspiration. This morning, the patient is sedated and the patient is calm and comfortable. She is on assist-control mode of mechanical ventilation. He is on a rate of 16 with a tidal volume of 350 and FiO2 of 50% with a PEEP of 8. The blood gas showed a pH of 7.45 with a pCO2 of 54 and pO2 of 91. Chest x-ray is consistent with diffuse bilateral pulmonary filtrates/pneumonia. Bronchoscopy was also done and another bronchial aspirate was obtained, pending further cultures. She is calm and comfortable on propofol running at 35 mcg/kg/min. Noted post intubation, the patient became hypotensive. Received a liter bolus and currently she is on normal saline at rate of 100 cc an hour. Norepinephrine is running at 0.15 mcg/kg/min. She remains in atrial fibrillation. She is on amiodarone drip at 0.5 mg/min and she is also on Cardizem drip. Slightly tachycardic. Remains on Rocephin and vancomycin and Rocephin will be switched to Zosyn. Lasix will also to be discontinued. Enteral feeding is to be started today. The white cell count of 21 with a hemoglobin 10.3 and a platelet count of 427. Sodium is at 138, BUN 13 creatinine 0.4 and a potassium level is at 3.2 with a bicarb level of 37 On 08/14/2024, the patient is being seen for a follow-up. The patient remains intubated on the mechanical ventilator. Earlier this morning, the patient is on a 30 mcg of propofol and the patient is adequately sedated. She remains on the mechanical ventilator assist-control mode with rate of 16, tidal volume of 350, FiO2 of 50% with a PEEP of 8. Blood gases show a pH of 7.41 with a pCO2 of 51 and pO2 of 82. No significant respiratory secretions. The sputum cultures and the bronchial aspirate this was collected and sent for culture showed presumptive Staph aureus and gram-negative bacillus and the patient remains on broad-spectrum antibiotics and the patient remains on a combination of Zosyn and vancomycin. Chest x-ray findings are essentially unchanged and the patient has diffuse bilateral patchy pulmonary infiltrates consistent with pneumonia. Meanwhile, the patient is on normal saline at rate of 100 cc an hour. Hemod ynamically, she still requiring pressors and the patient is on norepinephrine at 0.06 mcg/kg/min. Earlier this morning, the patient was still tachycardic while being in atrial fibrillation. She was started on Cardizem drip at 5 mg an hour by cardiology. She remains on amiodarone 0.5 mg/min. The patient was also given metoprolol 25 mg p.o. twice daily and the patient remains on anticoagulation with Eliquis. She is receiving enteral feeding for nutritional support with vital high-protein at rate of 10 cc an hour. The white cell count is 14.3 with hemoglobin 9.5 and a platelet count of 375. Sodium is at 137, potassium is at 3.6, BUN is 8. The patient with a creatinine of 0.4 On 08/15/2024, the patient is being seen for a follow-up. On today's evaluation, the patient extremity, comfortable on propofol running at 30 mcg/kg/min. Chest x-ray shows stable bilateral pulmonary filtrates, essentially unchanged. The bronchial lavage that was obtained earlier was positive for MRSA and Morganella morganii and the patient remains on a combination of Zosyn and vancomycin. The patient remains on assist-control mode mechanical ventilation. The patient's current setting includes on assist-control mode with rate of 18, tidal volume of 350, FiO2 40% with a PEEP of 6. Blood gas showed a pH of 7.41 with a pCO2 of 52 and pO2 of 107 and there has been some improvement in the oxygenation. Fluid balance is +3.8 L. The patient remains on low-dose dose of norepinephrine running at 0.02 mcg/kg/min. IV fluids are in the form of normal saline at rate of 100 cc an hour and the patient's cardiac rhythm is converted into sinus. The patient is currently on oral amiodarone. The patient is also on vital high- protein at rate of 42 cc an hour and she is tolerating the enteral feeding. The white cell count of 12.7 with a hemoglobin 9.2 and a platelet count of 377. BUN is 9 with a creatinine of 0.4 and sodium levels at 138 with potassium level of 3.6. No other significant events overnight. On 08/16/2024, the patient is being seen for a follow-up. Remains sedated on propofol running at 30 mcg/kg/min. Chest x-ray still showing extensive bilateral consolidation and the previous bronchoalveolar lavage was consistent with Morganella morganii and MRSA. Remains on Zosyn and vancomycin. Remains on assist-control mode of mechanical ventilation at rate of 16, tidal volume of 350, FiO2 of 60% with a PEEP of 5. The blood gases from today shows a pH of 7.46 with a pCO2 of 53 and pO2 of 71. Fluid balance is positive around 3.8 L over the past 24 hours. IV fluids are currently at KVO. She remains on low- dose norepinephrine running at 0.08 mcg/kg/min. Overnight, the patient deve loped again atrial fibrillation with RVR. She was started on Cardizem drip at 5 mg an hour she is also back on IV amiodarone 0.5 mg/min. Vital high-protein for enteral feeding at rate of 42 cc an hour. The white cell count of 10.7 with a hemoglobin 9.2. Sodium is at 136, BUN is at 9 with a creatinine of 0.3 and a potassium level is at 3.3, needs to be replaced. No other significant events overnight. On 08/17/2024, the patient remains on the mechanical ventilator. This morning, the patient is on propofol for sedation and she is calm and comfortable. At the same time, she is on assist-control mode of mechanical ventilation at rate of 16, tidal volume of 350, FiO2 of 50% with a PEEP of 5. Blood gas showed a pH of 7.55 with a pCO2 of 56 and pO2 of 90. Chest x-ray findings are essentially unchanged. CAT scan of the chest was obtained this morning and it shows bilateral consolidation left more than right consistent with pneumonia and there is also small to moderate-sized pleural effusion. The patient remains on a combination of cefepime and vancomycin and Eraxis. Afebrile. Hemodynamically, she remains on low-dose norepinephrine running at 0.06 mcg/kg/min. Cardiac rhythm is converted to sinus and the patient remains on Cardizem drip at 5 mg an hour and the patient is also on amiodarone drip. The patient was started on diuretics. She is currently on a combination of Lasix and Zaroxolyn. She was receiving IV Lasix 40 mg IV every 8 hours and Zaroxolyn 5 mg p.o. twice a day. Fluid balance is -4.8 L over the past 24 hours. She remains on vital high- protein at rate of 40 cc an hour. The white cell count is 11 with a hemoglobin 9.6 and a platelet count of 383. Sodium is at 135, potassium is at 3.7, serum bicarb is at 44, BUN is 15 with a creatinine of 0.5. Calcium level is at 8.2. Patient was seen today on 08/18/24, remains in the ICU, intubated and mechanical ly ventilated, patient is on assist-control rate of 16 tidal volume 350 FiO2 50% PEEP of 5 ABG showed a pO2 of 98 pCO2 57 pH of 7.46 remains on norepinephrine at 0.03 mcg/kg/min propofol at 30 mcg/kg/min amiodarone 0.5 mg/min patient remains on cefepime and vancomycin she is also on Eraxis. Receiving nutritional support/vital HP at 42 cc/h. Patient has a right groin arterial line and triple-lumen catheter. She has a PEG and J-tube in place, patient remains on antibiotics in the form of cefepime and vancomycin, she had positive sputum for MRSA and Morganella. Opens eyes, does not follow instructions today, patient is sedated, plan is to hold sedation and address mental status off sedation today. WBC count is 12.1 hemoglobin 9.4, Basic metabolic profile is normal bicarb is 14 renal profile is normal chest x-ray continues show bilateral bibasilar infiltrates consistent with aspiration pneumonia minimal improvement compared to baseline Patient was seen today on 08/19/2024 this note was dictated on 08/20 but is actually a note from 08/19/2024, apparently the note from 08/19 was deleted by mistake. At any rate patient was seen on 08/19, remains on mechanical ventilation, remains on assist-control rate of 16 tidal volume 350, FiO2 50% and PEEP of 5G showed a pO2 of 112 pCO2 52 pH of 7.49, patient remains on norepinephrine being titrated accordingly, remains on antibiotics including cefepime and vancomycin she is also on Eraxis. Continues to have significant airspace disease in both lungs. There is also a left upper lobe masslike consolidation in the left upper lobe, it is not clear whether this is a pneumonic process or malignancy. The plan is to address this eventually after the patient gets over this episode of respiratory failure. Patient does have positive sputum for Pseudomonas, and also positive system for Morganella morganii. Is arousable, follows very simple instructions, seems to be generally weak. WBC count 10.1 hemoglobin 8.8, electrolytes are normal BUN is 24 creatinine 0.65. Chest x-ray continues show evidence of bilateral airspace disease left more so than right Patient seen on 08/20/2024 patient remains in the ICU, intubated and mechanically ventilated, she is on assist-control rate of 16 tidal volume 350 FiO2 45% PEEP of 5 ABG showed a pO2 of 72 pCO2 48 pH of 7.51. Continues to use norepinephrine at 0.04 mcg/kg/min remains on propofol at 15 mcg/kg/min patient was transitioned from oral amiodarone to IV amiodarone at 0.5 mg/min she has vital AF at 10 cc/h surgery evaluated her gastric tube and did not feel there is any major concern but recommended trickle feeding patient remains on cefepime vancomycin and Eraxis remains on Lasix at 20 mg IV push every 8 hours patient is also on Eliquis. Abdominal x-rays showed negative findings patient had a peak airway pressure of 26 Plateau pressure of 16 no changes again were made in her vent ilator settings instructed nursing to lower down the dose the dose of norepinephrine and titrate to a mean arterial pressure of 65. Her atrial fibrillation remains poorly controlled and I believe the patient is not going to wean easily with poorly controlled atrial fibrillation. Daughter is at bedside today and she had lots of questions regarding her condition and regarding her left upper lobe masslike consolidation and I explained to her that this is to be addressed down the line once her clinical condition improves, patient is not a great candidate for bronchoscopy at this point or biopsy. Labs today were all reviewed WBC count is 11.6 hemoglobin 9.5, basic metabolic profile is relatively normal BUN is 31 creatinine 0.55 sputum cultures and abdominal wound cultures were reviewed Seen today on 08/21/2024, patient remains in the ICU, still intubated and mechanically ventilated, still on assist-control rate of 16 tidal volume 350 FiO2 45% and PEEP of 5 ABG is marginal with a pO2 of 66 pCO2 44 pH of 7.53 her heart rate is better controlled, patient is now on amiodarone 0.5 mg/min she is also on Cardizem 7.5 mg/h norepinephrine is down to 0.03 mcg/kg/min propofol is off today she was on 20 mcg/kg/min earlier and I recommended stopping propofol, patient will be given trials of weaning she did go on pressure support of 10 with CPAP, however her tidal volumes are noted to be very low and marginal, increase the pressure support up to 12, and my plan is to keep her now at least for the time being on pressure support of 12 and CPAP. Better tidal volumes with pressure support of 12 but again not quite ready for weaning. Patient does have very shallow breathing and small tidal volumes most of the time. Remains on vancomycin and cefepime and Eraxis. ABG on pressure support of 10 look marginal, hence held back on extubation. Earlier today I recommended Lasix and she was given 40 mg IV push as well as her usual dose of Lasix which is 20 mg every 8 hours patient remains on Lasix and on Eliquis. Chest x-ray continues to show bilateral patchy opacities involving the left lung and right lower lobe, more airspace disease in the left lung and continues to have masslike co nsolidation in the left upper lobe apically. WBC count is 13.7 hemoglobin is 9 ABG on pressure support and CPAP seem to be similar to the ABG she had earlier today on assist-control mode of mechanical ventilation. She has relative hypoxia and slight hypercapnia. Patient remains metabolically alkalotic. Patient was evaluated today on 08/22/2024, patient was extubated today, tolerated the extubation quite well, she was on 5 L/min earlier today and no major issues overnight. Patient is on 0.9 normal saline at 20 cc/h she has vital HP at 20 cc/h still on amiodarone at 0.5 mg/min. Rounded on the patient, and she was noted to be doing well, did not seem to be in any distress, however while I was on rounds, I was called back to the room because the patient has had an episode of witnessed nausea and vomiting, and believes that she may have a bit of aspiration, patient desaturated down to the 70s placed on 10 L high flow nasal cannula remained in the high 70s then I recommended that we place the patient on Airvo, this will be titrated accordingly, chest x-ray showed no major change compared to her baseline chest x-ray done earlier today. Patient did not seem to be in any distress. her O2 saturation went up to 97% after placement on Airvo labs today were reviewed WBC count is 22.1 hemoglobin 9.7 electrolytes are normal renal profile is normal except bicarb of 39 BUN is 36 creatinine 0.56 Patient was seen today on 08/23/2024, patient remains in the ICU, remains on Airvo since she had that witnessed episode of aspiration yesterday. She is on 55% FiO2 60 L flow, very comfortable not in distress, patient is back on tube feeding, however she is being fed very slowly 10 cc/h. Remains on amiodarone at 0.5 mg/min, being addressed by cardiology chest x-ray continues show bilateral airspace disease left more so than right. Patient again remains marginal at best, but now that she is off the ventilator, she seems to be doing better. Remains on antibiotics continues to have leukocytosis with WBC count of 28.1 hemoglobin 9.7 electrolytes are normal renal profile is normal procalcitonin yesterday was 0.09. Seen today on 08/24/2023, patient remains in the ICU, tolerated the extubation well for the last few days, patient is on 60 L flow and 55% FiO2, she is on vancomycin, Eraxis, cefepime, and she is also on Lasix 20 mg IV push every 8 hours in addition she is also on Eliquis. Patient is being treated for MRSA pneumonia and pseudomonal infection with positive sputum for Morganella morganii. Patient had an episode of aspiration initially when she was admitted and she had another episode while inpatient. Today patient is sitting at the bedside chair, she is back on enteral feeding up to goal, patient is comfortable, does not seem to be in any distress however, chest x-ray continues show bilateral infiltrates left more so than right, still receiving antibiotics for presumptive pneumonia and she has some component of congestive heart failure. Patient is not requiring any pressors today she is noted to have leukocytosis with WBC count of 27.3 hemoglobin 10.5 electrolytes are normal bicarb is 39 BUN 32 creatinine 0.62 Objective - Vital Signs Vital signs: Vital Signs Temp 97.4 F L 08/24/24 08:00 Pulse 62 08/24/24 11:00 Resp 17 08/24/24 11:00 BP 86/52 08/24/24 08:00 Pulse Ox 86 L 08/24/24 11:00 FiO2 90 08/24/24 11:00 Intake & Output 08/23/24 08/24/24 08/24/24 18:59 06:59 18:59 Intake Total 556 606 535 Output Total 8954 980 895 Balance -1039 -354 -258 Weight 57.2 kg Intake: IV 256 276 215 0.9 NS 220 240 100 A Line 36 36 15 Cefepime 2 gm In Sodium 100 Chloride 0.9% 100 ml @ 25 mls/hr IVPB Q8HR [facility] Rx# :[id number] Tube Feeding 190 330 190 TPN/PPN 20 0.9 NS 20 Other 90 130 Output: Urine 1495 960 895 Stool 100 Other: Voiding Method Indwelling Catheter Indwelling Catheter ABP, PAP, CO, CI - Last Documented Arterial Blood Pressure 118/47 - Exam GENERAL EXAM: 63-year-old female on Airvo, not in distress, patient is comfortab le instead of marginal O2 saturations HEAD: Normocephalic and atraumatic EYES: PERRLA, EOMI, nonicteric no neck masses no JVD no stridor NOSE: Clear with pink turbinates. THROA. Surgical scars noted in the neck area CHEST: No chest wall deformity. LUNGS: Diminished breath sounds at the bases no crackles rhonchi or wheezes CVS: Regular rate and rhythm, no S3 gallop, no murmur Abdomen: Evidence of gastrostomy and jejunostomy tubes noted otherwise unremarkable SKIN: No rashes CENTRAL NERVOUS SYSTEM: Patient is awake, oriented x 3 no gross focal deficit except generally weak EXTREMITIES: There is no peripheral edema, clubbing, or cyanosis. Peripheral pulses are intact. - Labs CBC & Chem 7: 08/24/24 03:45 08/24/24 03:45 Labs: Abnormal Lab Results - Last 24 Hours (Table) 08/23/24 08/23/24 08/23/24 Range/Units 11:28 17:47 23:35 WBC (3.8-10.6) k/uL RBC (3.80-5.40) m/uL Hgb (11.4-16.0) gm/dL Hct (34.0-46.0) % Plt Count (150-450) k/uL Sodium (137-145) mmol/L Chloride (98-107) mmol/L Carbon Dioxide (22-30) mmol/L BUN (7-17) mg/dL Glucose (74-99) mg/dL POC Glucose (mg/dL) 147 H 158 H 162 H (70-110) mg/dL Total Protein (6.3-8.2) g/dL Albumin (3.5-5.0) g/dL 08/24/24 08/24/24 08/24/24 Range/Units 03:45 03:45 05:52 WBC 27.3 H (3.8-10.6) k/uL RBC 3.65 L (3.80-5.40) m/uL Hgb 10.5 L (11.4-16.0) gm/dL Hct 33.4 L (34.0-46.0) % Plt Count 719 H (150-450) k/uL Sodium 133 L (137-145) mmol/L Chloride 90 L (98-107) mmol/L Carbon Dioxide 39 H (22-30) mmol/L BUN 32 H (7-17) mg/dL Glucose 159 H (74-99) mg/dL POC Glucose (mg/dL) 157 H (70-110) mg/dL Total Protein 5.9 L (6.3-8.2) g/dL Albumin 2.7 L (3.5-5.0) g/dL Microbiology - Last 24 Hours (Table) 08/17/24 11:25 Gram Stain - Final Abdomen Wound Culture - Final Pseudomonas aeruginosa Methicillin resist S. 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 with radiation therapy followed by reconstructive surgery Chronic dysphagia with chronic aspiration patient had PEG tube and jejunostomy tube placed for enteral nutrition History of radiation pneumonitis History of DVT and pulmonary embolism remains on Eliquis Hypothyroidism History of seizure disorder Left upper lobe consolidation, continues to improve Recommendation: Continue Airvo and titrate accordingly Continue to monitor in the ICU Continue GI and DVT prophylaxis Continue nutritional support/enteral feeding Continue diuretics Continue antibiotics and antifungal, as per infectious disease on the case Continue amiodarone Continue metoprolol Continue Eliquis Continue bronchodilators Patient may need physical therapy and eventually will require rehab. Will continue to follow Time with Patient: Less than 30
[2024-08-24 11:52] LABS: Glucose,Whole Blood 197 mg/dL (70-110)
--- NOTE | 2024-08-24 14:09 | P.PN ---
Subjective Progress Note Date: 08/24/24 63 years old female with past medical history of multiple medical problems. Patient called her PCP office of Dr. Anderson and talked to his nurse practitioner Lynnette from she sees in the office complaining from little shortness of breath for the last 4 to 5 days with some cough and phlegm Associated with left lateral chest pain about 7/10 that is worse with coughing and deep breath. 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 Will BMP and LFTs were unremarkable as well as INR proBNP is 248 Chest x-ray showing left lower lobe infiltrate suspicious for pneumonia Patient was started on IV vancomycin and Zosyn and normal saline with pulmonary and ID team consult 08/22/2024 --the patient continues to be afebrile, the patient has been extubated and is currently breathing comfortably on nasal cannula oxygen however requiring high flow O2 denies any chest pain or worsening cough she did have episode of vomiting x 3 this morning as reported by the at the bedside output in the fecal management system is thickening up as reported by the nursing staff and the patient is tolerating her tube feeds with 0 residuals. Patient white count is up to 22.1 creatinine 0.56 Vanco trough is therapeutic at 18. -- Family requesting medications to be spaced out 08/23/2024 -- patient is seen and evaluated in room at bedside; no report of any fever or chills, patient is breathing comfortably on high flow nasal cannula oxygen he denies having any chest pain or cough has been tolerating her tube feeds and no worsening output in the fecal management system; no complaint of any further episodes of vomiting. The patient white count is 28.1, hemoglobin of 9.7, platelet count of 599, sodium 133, potassium 3.7, BUN of 34 with creatinine 0.55, procalcitonin 0.09 --patient with acute respiratory failure; sputum has been growing MRSA and Morganella, patient is currently afebrile; patient did have a CT done on 08/17/2024 that was suggestive of left upper lobe consolidation/mass which the family has been concerned about it has been discussed in detail for better evaluation she may need bronchoscopy however per pulmonary note patient was not stable enough to go for the bronchoscopy and [facility] -patient remains afebrile; further worsening of the white count is up to 28,000 more likely related to steroids as no evidence of any worsening clinical condition patient is breathing comfortably and did have normal procalcitonin currently covered with cefepime and vancomycin. 08/24/2023 -- patient remains in the ICU, seen and evaluated with at bedside; no further episodes of emesis, patient is on 60 L flow and 55% FiO2; nursing staff reporting occasional desaturation with minimal activity -- she is on vancomycin, Eraxis, cefepime, and she is also on Lasix 20 mg IV push every 8 hours in addition she is also on Eliquis. - Patient is being treated for MRSA pneumonia and pseudomonal infection with positive sputum for Morganella morganii. Patient had an episode of aspiration initially when she was admitted and she had another episode while inpatient. Today patient is sitting at the bedside chair, she is back on enteral feeding up to goal, patient is comfortable - WBC count of 27.3 hemoglobin 10.5 electrolytes are normal bicarb is 39 BUN 32 creatinine 0.62 - chest x-ray continues show bilateral infiltrates left more so than right, still receiving antibiotics for presumptive pneumonia Objective - Vital Signs Vital signs: Vital Signs Temp 97.6 F 08/24/24 00:00 Pulse 68 08/24/24 07:00 Resp 14 08/24/24 07:00 BP 90/53 08/24/24 07:00 Pulse Ox 92 L 08/24/24 07:00 FiO2 55 08/24/24 08:06 Intake & Output 08/23/24 08/24/24 08/24/24 18:59 06:59 18:59 Intake Total 556 606 53 Output Total 1595 960 45 Balance -1039 -354 8 Weight 57.2 kg Intake: IV 256 276 23 0.9 NS 220 240 20 A Line 36 36 3 Tube Feeding 190 330 30 TPN/PPN 20 0.9 NS 20 Other 90 Output: Urine 1495 960 45 Stool 100 Other: Voiding Method Indwelling Catheter Indwelling Catheter ABP, PAP, CO, CI - Last Documented Arterial Blood Pressure 139/59 - Exam HEENT: Pupils are round and equally reacting to light. EOMI. No scleral icterus. No conjunctival pallor. Normocephalic, atraumatic. No pharyngeal erythema. No thyromegaly. CARDIOVASCULAR: S1 and S2 present. No murmurs, rubs, or gallops. Irregular rate and rhythm PULMONARY coarse breath sounds bilaterally, bilateral crackles audible ABDOMEN: Soft, nontender, nondistended, normoactive bowel sounds. No palpable organomegaly. Jejunostomy tube seen MUSCULOSKELETAL: No joint swelling or deformity. EXTREMITIES: No cyanosis, clubbing, 1+ pitting edema of lower extremities bilaterally NEUROLOGICAL: Intubated SKIN: No rashes. - Labs CBC & Chem 7: 08/24/24 03:45 08/24/24 03:45 Labs: Abnormal Lab Results - Last 24 Hours (Table) 08/23/24 08/23/24 08/23/24 Range/Units 11:28 17:47 23:35 WBC (3.8-10.6) k/uL RBC (3.80-5.40) m/uL Hgb (11.4-16.0) gm/dL Hct (34.0-46.0) % Plt Count (150-450) k/uL Sodium (137-145) mmol/L Chloride (98-107) mmol/L Carbon Dioxide (22-30) mmol/L BUN (7-17) mg/dL Glucose (74-99) mg/dL POC Glucose (mg/dL) 147 H 158 H 162 H (70-110) mg/dL Total Protein (6.3-8.2) g/dL Albumin (3.5-5.0) g/dL 08/24/24 08/24/24 08/24/24 Range/Units 03:45 03:45 05:52 WBC 27.3 H (3.8-10.6) k/uL RBC 3.65 L (3.80-5.40) m/uL Hgb 10.5 L (11.4-16.0) gm/dL Hct 33.4 L (34.0-46.0) % Plt Count 719 H (150-450) k/uL Sodium 133 L (137-145) mmol/L Chloride 90 L (98-107) mmol/L Carbon Dioxide 39 H (22-30) mmol/L BUN 32 H (7-17) mg/dL Glucose 159 H (74-99) mg/dL POC Glucose (mg/dL) 157 H (70-110) mg/dL Total Protein 5.9 L (6.3-8.2) g/dL Albumin 2.7 L (3.5-5.0) g/dL Microbiology - Last 24 Hours (Table) 08/17/24 11:25 Gram Stain - Final Abdomen Wound Culture - Final Pseudomonas aeruginosa Methicillin resist S. aureus Morganella morganii Rosa parapsilosis group Assessment and Plan Assessment: Bilateral pneumonia putum sample obtained 08/01 and again on August 06, 2024 positive for MRSA, Morganella, and group B strep and Rosa Sepsis secondary to above Acute hypoxic respiratory failure secondary to above Mild calorie protein malnutrition History of mouth cancer , currently she uses PEG tube for nutrition COPD, not in acute acute issue History of pneumonia not on anticoagulation History of seizure Monitor vital signs Monitor CBC Monitor CMP Continue telemetry monitoring Aggressive bronchopulmonary hygiene Continue vent management Continue weaning trial per critical care Follow-up on blood cultures Continue breathing treatment Continue amiodarone drip, Cardizem drip, Eliquis Strict I's and O's, daily weights, Lasix 20 mg every 8 Continue vancomycin, cefepime, Eraxis Continue tube feeding Continue breathing treatments ID following Pulmonology following Cardiology following
--- NOTE | 2024-08-24 14:41 | P.PN ---
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 Patient chest x-ray right lower lobe infiltrate. On today's evaluation that is 08/24/2024, Patient is afebrile patient is currently on high flow nasal cannula oxygen however denies any worsening shortness of breath no chest pain no cough has been tolerating her tube feed no worsening diarrhea reported by the nursing staff. Patient white count is down to 27.3, creatinine 0.62 Objective - Vital Signs Vital signs: Vital Signs Temp 97.4 F L 08/24/24 08:00 Pulse 68 08/24/24 11:37 Resp 17 08/24/24 11:00 BP 86/52 08/24/24 08:00 Pulse Ox 86 L 08/24/24 11:00 FiO2 90 08/24/24 11:21 Intake & Output 08/23/24 08/24/24 08/24/24 18:59 06:59 18:59 Intake Total 556 606 535 Output Total 1595 960 895 Balance -3072 -621 -320 Weight 57.2 kg Intake: IV 256 276 215 0.9 NS 220 240 100 A Line 36 36 15 Cefepime 2 gm In Sodium 100 Chloride 0.9% 100 ml @ 25 mls/hr IVPB Q8HR [facility] Rx# :[id number] Tube Feeding 190 330 190 TPN/PPN 20 0.9 NS 20 Other 90 130 Output: Urine 1495 960 895 Stool 100 Other: Voiding Method Indwelling Catheter Indwelling Catheter ABP, PAP, CO, CI - Last Documented Arterial Blood Pressure 118/47 - Exam GENERAL DESCRIPTION: Elderly female lying in bed in no distress RESPIRATORY SYSTEM: Unlabored breathing , decreased breath sounds at bases HEART: S1 S2 regular rate and rhythm , ABDOMEN: Soft , no tenderness EXTREMITIES: No edema feet - Labs CBC & Chem 7: 08/24/24 03:45 08/24/24 03:45 Labs: Abnormal Lab Results - Last 24 Hours (Table) 08/23/24 08/23/24 08/24/24 Range/Units 17:47 23:35 03:45 WBC (3.8-10.6) k/uL RBC (3.80-5.40) m/uL Hgb (11.4-16.0) gm/dL Hct (34.0-46.0) % Plt Count (150-450) k/uL Sodium 133 L (137-145) mmol/L Chloride 90 L (98-107) mmol/L Carbon Dioxide 39 H (22-30) mmol/L BUN 32 H (7-17) mg/dL Glucose 159 H (74-99) mg/dL POC Glucose (mg/dL) 158 H 162 H (70-110) mg/dL Total Protein 5.9 L (6.3-8.2) g/dL Albumin 2.7 L (3.5-5.0) g/dL 08/24/24 08/24/24 Range/Units 03:45 05:52 WBC 27.3 H (3.8-10.6) k/uL RBC 3.65 L (3.80-5.40) m/uL Hgb 10.5 L (11.4-16.0) gm/dL Hct 33.4 L (34.0-46.0) % Plt Count 719 H (150-450) k/uL Sodium (137-145) mmol/L Chloride (98-107) mmol/L Carbon Dioxide (22-30) mmol/L BUN (7-17) mg/dL Glucose (74-99) mg/dL POC Glucose (mg/dL) 157 H (70-110) mg/dL Total Protein (6.3-8.2) g/dL Albumin (3.5-5.0) g/dL Microbiology - Last 24 Hours (Table) 08/17/24 11:25 Gram Stain - Final Abdomen Wound Culture - Final Pseudomonas aeruginosa Methicillin resist S. aureus Morganella morganii Rosa parapsilosis group Assessment and Plan (1) MRSA (methicillin resistant Staphylococcus aureus) infection Current Visit: Yes Status: Acute Code(s): A49.02 - METHICILLIN RESIS STAPH INFECTION, UNSP SITE SNOMED Code(s): 973182996 (2) Allergy to sulfa drugs Current Visit: Yes Status: Acute Code(s): Z88.2 - ALLERGY STATUS TO SULFONAMIDES SNOMED Code(s): 04746997 (3) Failure of outpatient treatment Current Visit: Yes Status: Acute Code(s): Z78.9 - OTHER SPECIFIED HEALTH STATUS SNOMED Code(s): 034958183 (4) Pneumonia Current Visit: Yes Status: Acute Code(s): J18.9 - PNEUMONIA, UNSPECIFIED ORGANISM SNOMED Code(s): 178565629 Plan: 1patient with acute respiratory failure currently on the ventilator which is likely multifactorial likely component of A-fib with RVR/CHF and pneumonia the sputum has been growing MRSA and Morganella, patient is currently afebrile and white count has normalized chest x-ray from this morning showing mostly CHF and improving CHF pattern patient did have a CT done on 08/17/2024 that was suggestive of left upper lobe consolidation/mass which the family has been concerned about it has been discussed in detail for better evaluation she may need bronchoscopy however per pulmonary note patient was not stable enough to go for the bronchoscopy and wants to do CAT scan in the outpatient setting 2-patient also have some drainage around the feeding tube site which has been cultured per granddaughter request and is growing multiple pathogen including Pseudomonas which is sensitive to cefepime and MRSA 3-patient also have diarrhea stool for C. difficile has been negative, stool output and consistency has improved per the nursing staff, continue with Questran for symptomatic relief 4-patient remains to be afebrile, patient white count slightly down to 27,000, the patient did have did have normal procalcitonin currently covered with cefepime and vancomycin however the patient has received adequate antibiotic therapy for Pneumonia and will consider discontinuation after discussion with the pulmonary at the bedside questions answered Dictation was produced using [employer] dictation software. please excuse any grammatical, word or spelling errors. Time with Patient: Less than 30
[2024-08-24] MEDS ORDERED: BENZONATATE 100 MG CAP PO SCH (16:00)
--- NOTE | 2024-08-24 17:05 | P.PN ---
Progress Note - Text Progress Note Date: 08/24/24 HISTORY OF PRESENT ILLNESS: No acute events overnight PHYSICAL EXAM: VITAL SIGNS: Reviewed. GENERAL: Intubated ABDOMEN: Soft. Nondistended. Nontender. PEG tube site and J-tube site clean dry and intact ASSESSMENT: 1. Clogged jejunostomy tube and nausea status post J-tube exchange at bedside 2. Aspiration pneumonia 3. 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 Drainage around PEG tube site PLAN: -J tube is no longer leaking. Tube feeds as tolerated Darrius Wick DO [facility] [phone]
[2024-08-24 18:10] LABS: Glucose,Whole Blood 192 mg/dL (70-110)
--- NOTE | 2024-08-24 22:39 | P.PN ---
Subjective Progress Note Date: 08/24/24 HPI: [This lady has been extubated she looks good hemodynamically stable. She is on a Cardizem drip at 7.5 and also on amiodarone drip. Her PEG tube has been replaced. Hemodynamically stable maintaining sinus rhythm. I will discontinue the Cardizem drip today. 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 She has paroxysmal atrial fibrillation maintaining sinus rhythm today]. Progress note 08/23/2024 Patient is maintaining sinus rhythm. Heart rate is around 60 bpm, blood pressure systolic around 120s to 130s mmHg. Still on high flow nasal cannula, 08/24/2024 Patient is maintaining sinus rhythm, heart rate around 60 bpm, systolic blood pressure around 120s to 130s. Still continues to be on high flow nasal cannula supplemental oxygen. PHYSICIAL EXAM: [Vitals are stable JVD not evident S1-S2 heard normally short systolic murmur lungs reveal fair air entry abdomen is soft lower extremities reveal diminished pulses Central nervous system]. IMPRESSION: 1. [Aspiration pneumonia and respiratory failure extubated. 2. [Paroxysmal atrial fibrillation currently in sinus rhythm hemodynamically stable]. 3. [History of head and neck cancer s/p surgery and reconstructive surgery with PEG tube difficulty to swallow]. 4. [History of DVT]. RECOMMENDATIONS: Continue amiodarone 200 mg twice daily until 08/29/2024. Thereafter reduce to once a day.. Continue anticoagulation with Eliquis 5 mg twice daily Continue IV diuretics 20 mg Lasix every 8 hours. Anticipate reducing it to p.o. regimen tomorrow. Continue metoprolol 25 mg twice daily Prognosis guarded, further recommendations to follow Objective - Vital Signs Vital signs: Vital Signs Temp 97.3 F L 08/24/24 20:00 Pulse 65 08/24/24 21:00 Resp 14 08/24/24 21:00 BP 152/80 08/24/24 16:00 Pulse Ox 100 08/24/24 21:00 FiO2 60 08/24/24 20:00 Intake & Output 08/24/24 08/24/24 08/25/24 06:59 18:59 06:59 Intake Total 606 1391 302 Output Total 960 2290 250 Balance -354 -899 52 Weight 57.2 kg Intake: IV 276 626 92 0.9 NS 240 240 80 A Line 36 36 12 Cefepime 2 gm In Sodium 100 Chloride 0.9% 100 ml @ 25 mls/hr IVPB Q8HR [facility] Rx# :[id number] Vancomycin 1,000 mg In 250 Sodium Chloride 0.9% 250 ml @ 125 mls/hr IVPB Q12H [facility] Rx#:[id number] Tube Feeding 330 485 180 Other 280 30 Output: Urine 960 2190 250 Stool 100 Other: Voiding Method Indwelling Catheter Indwelling Catheter Indwelling Catheter ABP, PAP, CO, CI - Last Documented Arterial Blood Pressure 141/55 - Labs CBC & Chem 7: 08/24/24 03:45 08/24/24 03:45 Labs: Abnormal Lab Results - Last 24 Hours (Table) 08/23/24 08/24/24 08/24/24 Range/Units 23:35 03:45 03:45 WBC 27.3 H (3.8-10.6) k/uL RBC 3.65 L (3.80-5.40) m/uL Hgb 10.5 L (11.4-16.0) gm/dL Hct 33.4 L (34.0-46.0) % Plt Count 719 H (150-450) k/uL Sodium 133 L (137-145) mmol/L Chloride 90 L (98-107) mmol/L Carbon Dioxide 39 H (22-30) mmol/L BUN 32 H (7-17) mg/dL Glucose 159 H (74-99) mg/dL POC Glucose (mg/dL) 162 H (70-110) mg/dL Total Protein 5.9 L (6.3-8.2) g/dL Albumin 2.7 L (3.5-5.0) g/dL 08/24/24 08/24/24 08/24/24 Range/Units 05:52 11:50 18:08 WBC (3.8-10.6) k/uL RBC (3.80-5.40) m/uL Hgb (11.4-16.0) gm/dL Hct (34.0-46.0) % Plt Count (150-450) k/uL Sodium (137-145) mmol/L Chloride (98-107) mmol/L Carbon Dioxide (22-30) mmol/L BUN (7-17) mg/dL Glucose (74-99) mg/dL POC Glucose (mg/dL) 157 H 197 H 192 H (70-110) mg/dL Total Protein (6.3-8.2) g/dL Albumin (3.5-5.0) g/dL Microbiology - Last 24 Hours (Table) 08/17/24 11:25 Gram Stain - Final Abdomen Wound Culture - Final Pseudomonas aeruginosa Methicillin resist S. aureus Morganella morganii [facility]ilosis [facility]
[2024-08-24 23:32] LABS: Glucose,Whole Blood 193 mg/dL (70-110)
[2024-08-25 04:52] LABS: Glucose,Whole Blood 189 mg/dL (70-110)
[2024-08-25 06:10] LABS: Basophils % (A) 0 %; Eosinophils % (A) 0 %; HCT 34.8 % (34.0-46.0); HGB 10.8 gm/dL (11.4-16.0); Hypochromasia Moderate; Lymphocytes # (A) 0.8 k/uL (1.0-4.8); Lymphocytes % (A) 2 %; MCH 28.5 pg (25.0-35.0); MCV 91.6 fL (80.0-100.0); Mean Platelet Volume 8.5; Monocytes # (A) 0.6 k/uL (0-1.0); Monocytes % (A) 2 %; Neutrophils # (A) 33.4 k/uL (1.3-7.7); Neutrophils % (A) 96 %; Platelet Count 677 k/uL (150-450); RDW 15.2 % (11.5-15.5); WBC 34.9 k/uL (3.8-10.6)
[2024-08-25 06:42] LABS: African American GFR (CKD) >90 (>60 ml/min/1.73 sqM); Blood Urea Nitrogen 32 mg/dL (7-17); Chloride 90 mmol/L (98-107); Glucose 156 mg/dL (74-99); Non-African American GFR(CKD) >90 (>60 ml/min/1.73 sqM); Potassium 3.6 mmol/L (3.5-5.1); Sodium 134 mmol/L (137-145)
[2024-08-25 06:49] LABS: Anion Gap 6 mmol/L
[2024-08-25 07:05] LABS: Carbon Dioxide 38 mmol/L (22-30)
--- NOTE | 2024-08-25 07:39 | XR ---
EXAMINATION TYPE: XR chest 1V portable DATE OF EXAM: 08/25/2024 CLINICAL HISTORY: Difficulty breathing progress study. Multifocal pneumonia. TECHNIQUE: Single AP portable upright view of the chest is obtained. COMPARISON: Chest x-ray from 2 days earlier and older studies FINDINGS: Persistent diffuse left lung and multifocal right lung increased opacities. Stable mild ca rdiomegaly. A staple projects over the trachea similar to priors. A PEG tube is noted. IMPRESSION: Persistent diffuse left and multifocal right lung acute infiltrates and/or edema. No si gnificant change from most recent study. [facility], , 08/25/2024 7:37 AM
--- NOTE | 2024-08-25 11:07 | P.PN ---
Subjective Progress Note Date: 08/25/24 08/11/2023, the patient is being seen for a follow-up. Is a 63-year-old female patient with past medical history of oral cancer and previous radical neck dissection followed by radiation therapy and reconstructive surgery and the patient suffers from chronic dysphagia and the patient has PEG tube. 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 She has history of atrial fibrillation, hypothyroidism and seizure disorders. For now, the patient is in the intensive care unit for an acute hypoxic respiratory failure. The patient is currently on Airvo at 60 L with an FiO2 of 90% %. Chest x-ray shows bilateral lower lobe consolidation and possibly some small effusions. Antibiotic coverage is with IV Eraxis, vancomycin and Rocephin. Sputum samples collected on 08/06/2024 was consistent with MRSA, Morganella morganii and strep agalactiae. The patient had developed significant leukocytosis which is downtrending and the white cell count from yesterday was down to 16. Patient also developed atrial fibrillation with rapid ventricular response over the past 24 to 48 hours. The patient based on that was started on Cardizem drip and she is already anticoagulated with Eliquis. She remains on Cardizem at 10 mg an hour. She is also on metoprolol 25 mg p.o. twice daily for rate control. The patient is also on oxygen and Airvo settings this morning is 6 L with an FiO2 of 90%. The patient has a J-tube for feeding receiving Jevity 1.5 at the rate of 40 cc an hour. The J-tube was replaced yesterday. This was done by general surgery. CAT scan of the abdomen done on 08/09/2024 showed that the jejunostomy tube was grossly intact. Nevertheless, it there was evidence of lower lobe consolidations bilaterally worse on the left. 08/12/2023, the patient is being seen for a follow-up. Condition is gradually compensated over the past 24 hours and the patient has become more hypoxic related to her pneumonia. Noted the patient was on high flow oxygen, Airvo 60 L with an FiO2 of 90%. Subsequently, she was given 100% nonrebreather facemask and the patient continued to have episodes of desaturation. At a later stage, overnight, the patient was placed on a BiPAP and currently she is on a BiPAP pressure of 15 over 10 cm of water with an FiO2 of 100%. Initially, this morning, she was still desaturating and her blood gas was obtained which showed a pH of 7.33 with a pCO2 of 74 and pO2 of 49. I attended on this patient immediately. I wanted to intubate the patient. However, I do acknowledge that this is going to be an extremely difficult intubation as the patient does not have any ability to open up her mouth due to chronic scarring in her neck muscles and scarring of her jaw and her neck is significantly scarred up and stiff related to previous radiation therapy. While adjusting the BiPAP mask, we improved the leaks and the pulse ox improved currently she is pulse oxing in order of 91 to 93%. Reviewed the chest x-ray from today shows diffuse bilateral airspace disease consistent with pneumonia. No evidence of any pneumothorax. The patient continues to have a congested cough. No significant sputum production. Despite his ongoing hypoxemia, she is breathing comfortably. Her current respiratory rate is in the mid 20s. She is still awake and communicating. No fever. No hemodynamic instability. She remains in atrial fibrillation. Antibiotic coverage remains unchanged and the patient remains on a combination of Rocephin and vancomycin and Eraxis. The fluid balance has been negative over the past 24 hours. The white cell count is at 18.10.8 and this is. Calcium level 6. The patient remains on DuoNeb nebulized treatments. In terms of her ongoing atrial fibrillation, she is on Cardizem drip at 15 mg an hour. She remains on anticoagulation with Eliquis. She is also on metoprololAt a dose of 25 mg p.o. twice a day. No hypotension. Hemodynamically stable. IV fluids are currently at KVO. On 08/13/2024, the patient is being seen for a follow-up. As mentioned, the patient was intubated yesterday and placed on mechanical ventilation due to bilateral pneumonia that was further complicated by an episode of aspiration. This morning, the patient is sedated and the patient is calm and comfortable. She is on assist-control mode of mechanical ventilation. He is on a rate of 16 with a tidal volume of 350 and FiO2 of 50% with a PEEP of 8. The blood gas showed a pH of 7.45 with a pCO2 of 54 and pO2 of 91. Chest x-ray is consistent with diffuse bilateral pulmonary filtrates/pneumonia. Bronchoscopy was also done and another bronchial aspirate was obtained, pending further cultures. She is calm and comfortable on propofol running at 35 mcg/kg/min. Noted post intubation, the patient became hypotensive. Received a liter bolus and currently she is on normal saline at rate of 100 cc an hour. Norepinephrine is running at 0.15 mcg/kg/min. She remains in atrial fibrillation. She is on amiodarone drip at 0.5 mg/min and she is also on Cardizem drip. Slightly tachycardic. Remains on Rocephin and vancomycin and Rocephin will be switched to Zosyn. Lasix will also to be discontinued. Enteral feeding is to be started today. The white cell count of 21 with a hemoglobin 10.3 and a platelet count of 427. Sodium is at 138, BUN 13 creatinine 0.4 and a potassium level is at 3.2 with a bicarb level of 37 On 08/14/2024, the patient is being seen for a follow-up. The patient remains intubated on the mechanical ventilator. Earlier this morning, the patient is on a 30 mcg of propofol and the patient is adequately sedated. She remains on the mechanical ventilator assist-control mode with rate of 16, tidal volume of 350, FiO2 of 50% with a PEEP of 8. Blood gases show a pH of 7.41 with a pCO2 of 51 and pO2 of 82. No significant respiratory secretions. The sputum cultures and the bronchial aspirate this was collected and sent for culture showed presumptive Staph aureus and gram-negative bacillus and the patient remains on broad-spectrum antibiotics and the patient remains on a combination of Zosyn and vancomycin. Chest x-ray findings are essentially unchanged and the patient has diffuse bilateral patchy pulmonary infiltrates consistent with pneumonia. Meanwhile, the patient is on normal saline at rate of 100 cc an hour. Hemodynamically, she still requiring pressors and the patient is on norepinephrine at 0.06 mcg/kg/min. Earlier this morning, the patient was still tachycardic while being in atrial fibrillation. She was started on Cardizem drip at 5 mg an hour by cardiology. She remains on amiodarone 0.5 mg/min. The patient was also given metoprolol 25 mg p.o. twice daily and the patient remains on anticoagulation with Eliquis. She is receiving enteral feeding for nutritional support with vital high-protein at rate of 10 cc an hour. The white cell count is 14.3 with hemoglobin 9.5 and a platelet count of 375. Sodium is at 137, potassium is at 3.6, BUN is 8. The patient with a creatinine of 0.4 On 08/15/2024, the patient is being seen for a follow-up. On today's evaluation, the patient extremity, comfortable on propofol running at 30 mcg/kg/min. Chest x-ray shows stable bilateral pulmonary filtrates, essentially unchanged. The bronchial lavage that was obtained earlier was positive for MRSA and Morganella morganii and the patient remains on a combination of Zosyn and vancomycin. The patient remains on assist-control mode mechanical ventilation. The patient's current setting includes on assist-control mode with rate of 18, tidal volume of 350, FiO2 40% with a PEEP of 6. Blood gas showed a pH of 7.41 with a pCO2 of 52 and pO2 of 107 and there has been some improvement in the oxygenation. Fluid balance is +3.8 L. The patient remains on low-dose dose of norepinephrine running at 0.02 mcg/kg/min. IV fluids are in the form of normal saline at rate of 100 cc an hour and the patient's cardiac rhythm is converted into sinus. The patient is currently on oral amiodarone. The patient is also on vital high- protein at rate of 42 cc an hour and she is tolerating the enteral feeding. The white cell count of 12.7 with a hemoglobin 9.2 and a platelet count of 377. BUN is 9 with a creatinine of 0.4 and sodium levels at 138 with potassium level of 3.6. No other significant events overnight. On 08/16/2024, the patient is being seen for a follow-up. Remains sedated on propofol running at 30 mcg/kg/min. Chest x-ray still showing extensive bilateral consolidation and the previous bronchoalveolar lavage was consistent with Morganella morganii and MRSA. Remains on Zosyn and vancomycin. Remains on assist-control mode of mechanical ventilation at rate of 16, tidal volume of 350, FiO2 of 60% with a PEEP of 5. The blood gases from today shows a pH of 7.46 with a pCO2 of 53 and pO2 of 71. Fluid balance is positive around 3.8 L ov er the past 24 hours. IV fluids are currently at KVO. She remains on low-dose norepinephrine running at 0.08 mcg/kg/min. Overnight, the patient developed again atrial fibrillation with RVR. She was started on Cardizem drip at 5 mg an hour she is also back on IV amiodarone 0.5 mg/min. Vital high-protein for enteral feeding at rate of 42 cc an hour. The white cell count of 10.7 with a hemoglobin 9.2. Sodium is at 136, BUN is at 9 with a creatinine of 0.3 and a potassium level is at 3.3, needs to be replaced. No other significant events overnight. On 08/17/2024, the patient remains on the mechanical ventilator. This morning, the patient is on propofol for sedation and she is calm and comfortable. At the same time, she is on assist-control mode of mechanical ventilation at rate of 16 , tidal volume of 350, FiO2 of 50% with a PEEP of 5. Blood gas showed a pH of 7.55 with a pCO2 of 56 and pO2 of 90. Chest x-ray findings are essentially unchanged. CAT scan of the chest was obtained this morning and it shows bilateral consolidation left more than right consistent with pneumonia and there is also small to moderate-sized pleural effusion. The patient remains on a combination of cefepime and vancomycin and Eraxis. Afebrile. Hemodynamically, she remains on low-dose norepinephrine running at 0.06 mcg/kg/min. Cardiac rhythm is converted to sinus and the patient remains on Cardizem drip at 5 mg an hour and the patient is also on amiodarone drip. The patient was started on d iuretics. She is currently on a combination of Lasix and Zaroxolyn. She was receiving IV Lasix 40 mg IV every 8 hours and Zaroxolyn 5 mg p.o. twice a day. Fluid balance is -4.8 L over the past 24 hours. She remains on vital high- protein at rate of 40 cc an hour. The white cell count is 11 with a hemoglobin 9.6 and a platelet count of 383. Sodium is at 135, potassium is at 3.7, serum bicarb is at 44, BUN is 15 with a creatinine of 0.5. Calcium level is at 8.2. Patient was seen today on 08/18/24, remains in the ICU, intubated and mechanically ventilated, patient is on assist-control rate of 16 tidal volume 350 FiO2 50% PEEP of 5 ABG showed a pO2 of 98 pCO2 57 pH of 7.46 remains on norepinephrine at 0.03 mcg/kg/min propofol at 30 mcg/kg/min amiodarone 0.5 mg/min patient remains on cefepime and vancomycin she is also on Eraxis. Receiving nutritional support/vital HP at 42 cc/h. Patient has a right groin arterial line and triple-lumen catheter. She has a PEG and J-tube in place, p atient remains on antibiotics in the form of cefepime and vancomycin, she had positive sputum for MRSA and Morganella. Opens eyes, does not follow instructions today, patient is sedated, plan is to hold sedation and address mental status off sedation today. WBC count is 12.1 hemoglobin 9.4, Basic metabolic profile is normal bicarb is 14 renal profile is normal chest x-ray continues show bilateral bibasilar infiltrates consistent with aspiration pneumonia minimal improvement compared to baseline Patient was seen today on 08/19/2024 this note was dictated on 08/20 but is actually a note from 08/19/2024, apparently the note from 08/19 was deleted by mistake. At any rate patient was seen on 08/19, remains on mechanical ventilation, remains on assist-control rate of 16 tidal volume 350, FiO2 50% and PEEP of 5G showed a pO2 of 112 pCO2 52 pH of 7.49, patient remains on norepinephrine being titrated accordingly, remains on antibiotics including cefepime and vancomycin she is also on Eraxis. Continues to have significant airspace disease in both lungs. There is also a left upper lobe masslike consolidation in the left upper lobe, it is not clear whether this is a pneumonic process or malignancy. The plan is to address this eventually after the patient gets over this episode of respiratory failure. Patient does have positive sputum for Pseudomonas, and also positive system for Morganella morganii. Is arousable, follows very simple instructions, seems to be generally weak. WBC count 10.1 hemoglobin 8.8, electrolytes are normal BUN is 24 creatinine 0.65. Chest x-ray continues show evidence of bilateral airspace disease left more so than right Patient seen on 08/20/2024 patient remains in the ICU, intubated and mechanically ventilated, she is on assist-control rate of 16 tidal volume 350 FiO2 45% PEEP of 5 ABG showed a pO2 of 72 pCO2 48 pH of 7.51. Continues to use norepinephrine at 0.04 mcg/kg/min remains on propofol at 15 mcg/kg/min patient was transitioned from oral amiodarone to IV amiodarone at 0.5 mg/min she has vital AF at 10 cc/h surgery evaluated her gastric tube and did not feel there is any major concern but recommended trickle feeding patient remains on cefepime vancomycin and Eraxis remains on Lasix at 20 mg IV push every 8 hours patient is also on Diann penelope. Abdominal x-rays showed negative findings patient had a peak airway pressure of 26 Plateau pressure of 16 no changes again were made in her ventilator settings instructed nursing to lower down the dose the dose of norepinephrine and titrate to a mean arterial pressure of 65. Her atrial fibri llation remains poorly controlled and I believe the patient is not going to wean easily with poorly controlled atrial fibrillation. Daughter is at bedside today and she had lots of questions regarding her condition and regarding her left upper lobe masslike consolidation and I explained to her that this is to be addressed down the line once her clinical condition improves, patient is not a great candidate for bronchoscopy at this point or biopsy. Labs today were all reviewed WBC count is 11.6 hemoglobin 9.5, basic metabolic profile is relatively normal BUN is 31 creatinine 0.55 sputum cultures and abdominal wound cultures were reviewed Seen today on 08/21/2024, patient remains in the ICU, still intubated and mechanically ventilated, still on assist-control rate of 16 tidal volume 350 Fi O2 45% and PEEP of 5 ABG is marginal with a pO2 of 66 pCO2 44 pH of 7.53 her heart rate is better controlled, patient is now on amiodarone 0.5 mg/min she is also on Cardizem 7.5 mg/h norepinephrine is down to 0.03 mcg/kg/min propofol is off today she was on 20 mcg/kg/min earlier and I recommended stopping propofol, patient will be given trials of weaning she did go on pressure support of 10 with CPAP, however her tidal volumes are noted to be very low and marginal, increase the pressure support up to 12, and my plan is to keep her now at least for the time being on pressure support of 12 and CPAP. Better tidal volumes with pressure support of 12 but again not quite ready for weaning. Patient does have very shallow breathing and small tidal volumes most of the time. Remains on vancomycin and cefepime and Eraxis. ABG on pressure support of 10 look marginal, hence held back on extubation. Earlier today I recommended Lasix and she was given 40 mg IV push as well as her usual dose of Lasix which is 20 mg every 8 hours patient remains on Lasix and on Eliquis. Chest x-ray continues to show bilateral patchy opacities involving the left lung and right lower lobe, more airspace disease in the left lung and continues to have masslike consolidation in the left upper lobe apically. WBC count is 13.7 hemoglobin is 9 ABG on pressure support and CPAP seem to be similar to the ABG she had earlier today on assist-control mode of mechanical ventilation. She has relative hypoxia and slight hypercapnia. Patient remains metabolically alkalotic. Patient was evaluated today on 08/22/2024, patient was extubated today, tolerated the extubation quite well, she was on 5 L/min earlier today and no major issues overnight. Patient is on 0.9 normal saline at 20 cc/h she has vital HP at 20 cc /h still on amiodarone at 0.5 mg/min. Rounded on the patient, and she was noted to be doing well, did not seem to be in any distress, however while I was on rounds, I was called back to the room because the patient has had an episode of witnessed nausea and vomiting, and believes that she may have a bit of aspiration, patient desaturated down to the 70s placed on 10 L high flow nasal cannula remained in the high 70s then I recommended that we place the patient on Airvo, this will be titrated accordingly, chest x-ray showed no major change compared to her baseline chest x-ray done earlier today. Patient did not seem to be in any distress. her O2 saturation went up to 97% after placement on Airvo labs today were reviewed WBC count is 22.1 hemoglobin 9.7 electrolytes are normal renal profile is normal except bicarb of 39 BUN is 36 creatinine 0.56 Patient was seen today on 08/23/2024, patient remains in the ICU, remains on Airvo since she had that witnessed episode of aspiration yesterday. She is on 55% FiO2 60 L flow, very comfortable not in distress, patient is back on tube feeding, however she is being fed very slowly 10 cc/h. Remains on amiodarone at 0.5 mg/min, being addressed by cardiology chest x-ray continues show bilateral airspace disease left more so than right. Patient again remains marginal at best, but now that she is off the ventilator, she seems to be doing better. Remains on antibiotics continues to have leukocytosis with WBC count of 28.1 hemoglobin 9.7 electrolytes are normal renal profile is normal procalcitonin yesterday was 0.09. Seen today on 08/24/2023, patient remains in the ICU, tolerated the extubation well for the last few days, patient is on 60 L flow and 55% FiO2, she is on vancomycin, Eraxis, cefepime, and she is also on Lasix 20 mg IV push every 8 hours in addition she is also on Eliquis. Patient is being treated for MRSA pneumonia and pseudomonal infection with positive sputum for Morganella morganii. Patient had an episode of aspiration initially when she was admitted and she had another episode while inpatient. Today patient is sitting at the bedside chair, she is back on enteral feeding up to goal, patient is comfortable, does not seem to be in any distress however, chest x-ray continues show bilateral infiltrates left more so than right, still receiving antibiotics for presumptive pneumonia and she has some component of congestive heart failure. Patient is not requiring any pressors today she is noted to have leuk ocytosis with WBC count of 27.3 hemoglobin 10.5 electrolytes are normal bicarb is 39 BUN 32 creatinine 0.62 08/24/2024 patient seen and examined at bedside. Patient still in the ICU. Currently on Airvo 60L on 90% and comfortable. Still experiences oxygen desaturations despite being on Airvo throughout the night. Patient still on vancomycin IV, Eraxis IV, cefepime IV for MRSA pneumonia and pseudomonal infection and positive sputum for Morganella Morgagnii. She is also on Solumedrol 40mg IV every 8 hours and Lasix 20mg IV every 8 hours. Currently on vital AF at a rate of 45 for enteral feeding. WBC elevated at 34.9, hemoglobin 10.8, platelet count 677,000, sodium 134, potassium 3.6, chloride 90, bicarb 38, BUN 32, creatinine 0.56, glucose 156, calcium 9. Chest x-ray today shows persistent diffuse left and multifocal right lower acute infiltrates and/or edema no significant change PEG tube is in place. Review of Systems: Pertinent positives and negatives mentioned above. Other systems have been negative. Physical Exam: GENERAL EXAM: 63-year-old female on Airvo, not in distress HEAD: Normocephalic and atraumatic EYES: PERRLA, EOMI, nonicteric no neck masses no JVD no stridor NOSE: Clear with pink turbinates. THROAT: Surgical scars noted in the neck area CHEST: No chest wall deformity. LUNGS: Diffuse expiratory wheezing and stridor in bilateral lung miller, no use of accessory muscles CVS: Regular rate and rhythm, no S3 gallop, no murmur Abdomen: Evidence of gastrostomy and jejunostomy tubes noted otherwise unremarkable SKIN: No rashes CENTRAL NERVOUS SYSTEM: Patient is awake, oriented x 3 no gross focal deficit except generally weak EXTREMITIES: There is no peripheral edema, clubbing, or cyanosis. Peripheral pulses are intact. Impression: -Active: Acute hypoxic respiratory failure secondary to aspiration pneumonia. Sputum positive for MRSA and positive for Morganella morganii as well as Rosa. Patient has been on prolonged antibiotics and antifungal. 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 twice daily Continue Lopressor 25 mg p.o. twice daily Continue Duoneb four times daily Continue nutritional support/enteral feeding to goal rate Patient may need physical therapy and eventually will require rehab GI prophylaxis: Pepcid 20 mg IV every 12 hours DVT prophylaxis: Eliquis 5mg twice daily Prognosis: pending clinical course. Will continue to follow Objective - Vital Signs Vital signs: Vital Signs Temp 97.7 F 08/25/24 00:00 Pulse 67 08/25/24 07:00 Resp 18 08/25/24 07:00 BP 152/80 08/24/24 16:00 Pulse Ox 93 L 08/25/24 07:00 FiO2 90 08/25/24 03:48 Intake & Output 08/24/24 08/25/24 08/25/24 18:59 06:59 18:59 Intake Total 1391 1324 Output Total 2290 1070 Balance -899 254 Intake: IV 626 649 0.9 NS 240 260 A Line 36 39 Cefepime 2 gm In Sodium 100 100 Chloride 0.9% 100 ml @ 25 mls/hr IVPB Q8HR [facility] Rx# :[id number] Vancomycin 1,000 mg In 250 250 Sodium Chloride 0.9% 250 ml @ 125 mls/hr IVPB Q12H [facility] Rx#:[id number] Tube Feeding 485 585 Other 280 90 Output: Urine 2190 1070 Stool 100 Other: Voiding Method Indwelling Catheter Indwelling Catheter ABP, PAP, CO, CI - Last Documented Arterial Blood Pressure 141/54 - Labs CBC & Chem 7: 08/25/24 06:00 08/25/24 06:00 Labs: Abnormal Lab Results - Last 24 Hours (Table) 08/24/24 08/24/24 08/24/24 Range/Units 11:50 18:08 23:30 WBC (3.8-10.6) k/uL Hgb (11.4-16.0) gm/dL Plt Count (150-450) k/uL Neutrophils # (1.3-7.7) k/uL Lymphocytes # (1.0-4.8) k/uL Sodium (137-145) mmol/L Chloride (98-107) mmol/L Carbon Dioxide (22-30) mmol/L BUN (7-17) mg/dL Glucose (74-99) mg/dL POC Glucose (mg/dL) 197 H 192 H 193 H (70-110) mg/dL 08/25/24 08/25/24 08/25/24 Range/Units 04:51 06:00 06:00 WBC 34.9 H (3.8-10.6) k/uL Hgb 10.8 L (11.4-16.0) gm/dL Plt Count 677 H (150-450) k/uL Neutrophils # 33.4 H (1.3-7.7) k/uL Lymphocytes # 0.8 L (1.0-4.8) k/uL Sodium 134 L (137-145) mmol/L Chloride 90 L (98-107) mmol/L Carbon Dioxide 38 H (22-30) mmol/L BUN 32 H (7-17) mg/dL Glucose 156 H (74-99) mg/dL POC Glucose (mg/dL) 189 H (70-110) mg/dL
[2024-08-25 11:54] LABS: Glucose,Whole Blood 146 mg/dL (70-110)
[2024-08-25] MEDS: POTASSIUM CHLORIDE 20 MEQ in WATER FOR INJECTION 1 100ML.BAG IVPB ONE (12:41)
--- NOTE | 2024-08-25 13:22 | PN ---
PROGRESS NOTE SUBJECTIVE: Jessica is a 64-year-old lady, who was admitted to hospital with aspiration pneumonia and respiratory failure. We are involved in the care because of paroxysmal atrial fibrillation. The patient has head and neck cancer, status post surgery and has a PEG tube in. This morning, the patient remains in sinus rhythm and stable hemodynamically from cardiac standpoint. MEDICATIONS: She is on, 1. Cordarone 200 b.i.d. 2. Eliquis 5 b.i.d. 3. Lopressor 25 b.i.d. ALLERGIES: She has allergies to multiple antibiotics. OBJECTIVE: GENERAL: Comfortable at rest. VITAL SIGNS: Stable. CHEST: Reveals good air entry bilaterally. HEART: Reveals first and second heart sounds. No gallop. No murmur. EXTREMITIES: Did not reveal any edema. Peripheral pulses are felt. ASSESSMENT AND PLAN: Paroxysmal atrial fibrillation. The patient is currently in sinus rhythm. I will continue current medications. MMODL / IJN: [id number] /
--- NOTE | 2024-08-25 13:58 | P.PN ---
Subjective Progress Note Date: 08/25/24 SURGICAL PROGRESS NOTE CHIEF COMPLAINT: Respiratory failure HISTORY OF PRESENT ILLNESS: Patient is in the ICU and on Airvo. She has had no further drainage from around the PEG tube site. There placed medications through the PEG tube without difficulty. Also she is receiving tube feeds through the J-tube and tolerating tube feeds. PHYSICAL EXAM: VITAL SIGNS: Reviewed. GENERAL: Intubated ABDOMEN: Soft. Nondistended. Nontender. PEG tube site and J-tube site clean dry and intact ASSESSMENT: 1. Clogged jejunostomy tube and nausea status post J-tube exchange at bedside 2. Aspiration pneumonia 3. 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 Drainage around PEG tube site has resolved PLAN: -Patient tolerating tube feeds -No further drainage around PEG tube site -No surgical intervention planned -Surgical service will sign off. Please call with any questions or concerns. Physician Scrap Burner note has been reviewed by physician. Signing provider agrees with the documented findings, assessment, and plan of care. Objective - Vital Signs Vital signs: Vital Signs Temp 97.4 F L 08/25/24 12:00 Pulse 58 L 08/25/24 12:23 Resp 16 08/25/24 12:00 BP 152/80 08/25/24 12:00 Pulse Ox 95 08/25/24 12:00 FiO2 90 08/25/24 12:15 Intake & Output 08/24/24 08/25/24 08/25/24 18:59 06:59 18:59 Intake Total 1391 1324 500 Output Total 2290 1070 600 Balance -899 254 -100 Intake: IV 626 649 215 0.9 NS 240 260 100 A Line 36 39 15 Cefepime 2 gm In Sodium 100 100 Chloride 0.9% 100 ml @ 25 mls/hr IVPB Q8HR COUNT INCLUDES THE [facility] Rx# :[id number] Potassium Chloride 20 meq 100 In Water For Injection 1 100ml.bag @ 50 mls/hr IVPB ONCE ONE Rx#: [id number] Vancomycin 1,000 mg In 250 250 Sodium Chloride 0.9% 250 ml @ 125 mls/hr IVPB Q12H [facility] Rx#:[id number] Tube Feeding 485 585 225 Other 280 90 60 Output: Urine 2190 1070 600 Stool 100 Other: Voiding Method Indwelling Catheter Indwelling Catheter Indwelling Catheter ABP, PAP, CO, CI - Last Documented Arterial Blood Pressure 140/61 - Labs CBC & Chem 7: 08/25/24 06:00 08/25/24 06:00 Labs: Abnormal Lab Results - Last 24 Hours (Table) 08/24/24 08/24/24 08/25/24 Range/Units 18:08 23:30 04:51 WBC (3.8-10.6) k/uL Hgb (11.4-16.0) gm/dL Plt Count (150-450) k/uL Neutrophils # (1.3-7.7) k/uL Lymphocytes # (1.0-4.8) k/uL Sodium (137-145) mmol/L Chloride (98-107) mmol/L Carbon Dioxide (22-30) mmol/L BUN (7-17) mg/dL Glucose (74-99) mg/dL POC Glucose (mg/dL) 192 H 193 H 189 H (70-110) mg/dL 08/25/24 08/25/24 08/25/24 Range/Units 06:00 06:00 11:53 WBC 34.9 H (3.8-10.6) k/uL Hgb 10.8 L (11.4-16.0) gm/dL Plt Count 677 H (150-450) k/uL Neutrophils # 33.4 H (1.3-7.7) k/uL Lymphocytes # 0.8 L (1.0-4.8) k/uL Sodium 134 L (137-145) mmol/L Chloride 90 L (98-107) mmol/L Carbon Dioxide 38 H (22-30) mmol/L BUN 32 H (7-17) mg/dL Glucose 156 H (74-99) mg/dL POC Glucose (mg/dL) 146 H (70-110) mg/dL
[2024-08-25] MEDS: THIAMINE 100 MG TAB PO SCH (17:07)
[2024-08-25 18:20] LABS: Glucose,Whole Blood 158 mg/dL (70-110)
[2024-08-25] MEDS: POTASSIUM BICARBONATE/CIT AC 20 MEQ TABLET.EFF NG-TUBE SCH (20:35)
--- NOTE | 2024-08-25 21:59 | PN ---
PROGRESS NOTE DATE OF SERVICE: 08/25/2024 SUBJECTIVE: This is a 64-year-old woman, who was admitted with COPD and aspiration pneumonia, is on Airvo at this time. The patient is extremely short of breath and emaciated also. The patient is still being closely monitored in ICU. PAST MEDICAL HISTORY: Reviewed. REVIEW OF SYSTEMS: Could not be taken. The patient is extremely short of breath. CURRENT MEDICATIONS: Reviewed. PHYSICAL EXAMINATION: VITAL SIGNS: Pulse is 55, blood pressure 152/80, respirations 16. HEENT: Conjunctivae normal. NECK: No JVD. CARDIOVASCULAR: S1, S2. RESPIRATIONS: Breath sounds diminished at the bases. A few scattered rhonchi and crackles. ABDOMEN: Soft. NERVOUS SYSTEM: Diffusely weak. LABORATORY DATA: WBC 34.9, rest of the labs are noted. ASSESSMENT: 1. Bilateral pneumonia possibly aspiration with possible MRSA, Morganella, and group B streptococci, and Rosa with sepsis. 2. Acute hypoxic respiratory failure. 3. Protein-calorie malnutrition, mild. 4. PEG tube. 5. Chronic obstructive pulmonary disease acute exacerbation. 6. History of seizure. 7. Elevated WBC. RECOMMENDATIONS AND DISCUSSION: In this 64-year-old woman who presented with multiple complex medical issues, we will monitor the patient closely. Continue current medications. Continue symptomatic treatment. Otherwise, continue with intensive bronchodilator treatment. Follow closely with Pulmonary and Cardiology. Continue with IV steroids. Monitor lytes and labs closely. Guarded prognosis because of multiple complex medical issues. Further recommendations to follow. We will also supplement protein supplementation also along with dietary. MMODL / IJN: [id number] /
[2024-08-25 23:31] LABS: Glucose,Whole Blood 172 mg/dL (70-110)
[2024-08-26 05:42] LABS: Basophils % (A) 0 %; Eosinophils % (A) 0 %; HCT 35.3 % (34.0-46.0); HGB 10.7 gm/dL (11.4-16.0); Hypochromasia Marked; Lymphocytes # (A) 0.6 k/uL (1.0-4.8); Lymphocytes % (A) 2 %; MCHC 30.3 g/dL (31.0-37.0); MCV 92.5 fL (80.0-100.0); Mean Platelet Volume 8.5; Monocytes # (A) 0.5 k/uL (0-1.0); Monocytes % (A) 2 %; Neutrophils # (A) 27.7 k/uL (1.3-7.7); Neutrophils % (A) 96 %; Platelet Count 637 k/uL (150-450); RBC 3.82 m/uL (3.80-5.40); RDW 15.1 % (11.5-15.5); WBC 28.9 k/uL (3.8-10.6)
[2024-08-26] MEDS: PANTOPRAZOLE 40 MG TABLET PO SCH (06:15)
[2024-08-26 06:18] LABS: Glucose,Whole Blood 173 mg/dL (70-110)
[2024-08-26 06:24] LABS: African American GFR (CKD) >90 (>60 ml/min/1.73 sqM); Blood Urea Nitrogen 30 mg/dL (7-17); Calcium 8.8 mg/dL (8.4-10.2); Chloride 93 mmol/L (98-107); Glucose 165 mg/dL (74-99); Non-African American GFR(CKD) >90 (>60 ml/min/1.73 sqM); Potassium 4.9 mmol/L (3.5-5.1); Sodium 134 mmol/L (137-145)
[2024-08-26 06:31] LABS: Anion Gap 3 mmol/L; Carbon Dioxide 38 mmol/L (22-30)
--- NOTE | 2024-08-26 07:44 | XR ---
EXAMINATION TYPE: XR chest 1V portable DATE OF EXAM: 08/26/2024 CLINICAL HISTORY: Multifocal pneumonia progress study. TECHNIQUE: Single AP portable semiupright view of the chest is obtained. COMPARISON: Chest x-ray from one day earlier and older studies. FINDINGS: Persistent diffuse left lung and multifocal right lung increased opacities. Stable mild ca rdiomegaly. A staple projects over the trachea similar to priors. A PEG tube is partially imaged. IMPRESSION: Persistent diffuse left lung and multifocal right lung acute infiltrates and/or edema. Worsening findings in the right upper to midlung are noted since one day earlier. [facility], , 08/26/2024 7:42 AM
[2024-08-26] MEDS: FUROSEMIDE 20 MG TAB PO SCH (09:42)
--- NOTE | 2024-08-26 10:50 | P.PN ---
Subjective Progress Note Date: 08/26/24 08/11/2023, the patient is being seen for a follow-up. Is a 63-year-old female patient with past medical history of oral cancer and previous radical neck dissection followed by radiation therapy and reconstructive surgery and the patient suffers from chronic dysphagia and the patient has PEG tube. 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 She has history of atrial fibrillation, hypothyroidism and seizure disorders. For now, the patient is in the intensive care unit for an acute hypoxic respiratory failure. The patient is currently on Airvo at 60 L with an FiO2 of 90% %. Chest x-ray shows bilateral lower lobe consolidation and possibly some small effusions. Antibiotic coverage is with IV Eraxis, vancomycin and Rocephin. Sputum samples collected on 08/06/2024 was consistent with MRSA, Morganella morganii and strep agalactiae. The patient had developed significant leukocytosis which is downtrending and the white cell count from yesterday was down to 16. Patient also developed atrial fibrillation with rapid ventricular response over the past 24 to 48 hours. The patient based on that was started on Cardizem drip and she is already anticoagulated with Eliquis. She remains on Cardizem at 10 mg an hour. She is also on metoprolol 25 mg p.o. twice daily for rate control. The patient is also on oxygen and Airvo settings this morning is 6 L with an FiO2 of 90%. The patient has a J-tube for feeding receiving Jevity 1.5 at the rate of 40 cc an hour. The J-tube was replaced yesterday. This was done by general surgery. CAT scan of the abdomen done on 08/09/2024 showed that the jejunostomy tube was grossly intact. Nevertheless, it there was evidence of lower lobe consolidations bilaterally worse on the left. 08/12/2023, the patient is being seen for a follow-up. Condition is gradually compensated over the past 24 hours and the patient has become more hypoxic related to her pneumonia. Noted the patient was on high flow oxygen, Airvo 60 L with an FiO2 of 90%. Subsequently, she was given 100% nonrebreather facemask and the patient continued to have episodes of desaturation. At a later stage, overnight, the patient was placed on a BiPAP and currently she is on a BiPAP pressure of 15 over 10 cm of water with an FiO2 of 100%. Initially, this morning, she was still desaturating and her blood gas was obtained which showed a pH of 7.33 with a pCO2 of 74 and pO2 of 49. I attended on this patient immediately. I wanted to intubate the patient. However, I do acknowledge that this is going to be an extremely difficult intubation as the patient does not have any ability to open up her mouth due to chronic scarring in her neck muscles and scarring of her jaw and her neck is significantly scarred up and stiff related to previous radiation therapy. While adjusting the BiPAP mask, we improved the leaks and the pulse ox improved currently she is pulse oxing in order of 91 to 93%. Reviewed the chest x-ray from today shows diffuse bilateral airspace disease consistent with pneumonia. No evidence of any pneumothorax. The patient continues to have a congested cough. No significant sputum production. Despite his ongoing hypoxemia, she is breathing comfortably. Her current respiratory rate is in the mid 20s. She is still awake and communicating. No fever. No hemodynamic instability. She remains in atrial fibrillation. Antibiotic coverage remains unchanged and the patient remains on a combination of Rocephin and vancomycin and Eraxis. The fluid balance has been negative over the past 24 hours. The white cell count is at 18.10.8 and this is. Calcium level 6. The patient remains on DuoNeb nebulized treatments. In terms of her ongoing atrial fibrillation, she is on Cardizem drip at 15 mg an hour. She remains on anticoagulation with Eliquis. She is also on metoprololAt a dose of 25 mg p.o. twice a day. No hypotension. Hemodynamically stable. IV fluids are currently at KVO. On 08/13/2024, the patient is being seen for a follow-up. As mentioned, the patient was intubated yesterday and placed on mechanical ventilation due to bilateral pneumonia that was further complicated by an episode of aspiration. This morning, the patient is sedated and the patient is calm and comfortable. She is on assist-control mode of mechanical ventilation. He is on a rate of 16 with a tidal volume of 350 and FiO2 of 50% with a PEEP of 8. The blood gas showed a pH of 7.45 with a pCO2 of 54 and pO2 of 91. Chest x-ray is consistent with diffuse bilateral pulmonary filtrates/pneumonia. Bronchoscopy was also done and another bronchial aspirate was obtained, pending further cultures. She is calm and comfortable on propofol running at 35 mcg/kg/min. Noted post intubation, the patient became hypotensive. Received a liter bolus and currently she is on normal saline at rate of 100 cc an hour. Norepinephrine is running at 0.15 mcg/kg/min. She remains in atrial fibrillation. She is on amiodarone drip at 0.5 mg/min and she is also on Cardizem drip. Slightly tachycardic. Remains on Rocephin and vancomycin and Rocephin will be switched to Zosyn. Lasix will also to be discontinued. Enteral feeding is to be started today. The white cell count of 21 with a hemoglobin 10.3 and a platelet count of 427. Sodium is at 138, BUN 13 creatinine 0.4 and a potassium level is at 3.2 with a bicarb level of 37 On 08/14/2024, the patient is being seen for a follow-up. The patient remains intubated on the mechanical ventilator. Earlier this morning, the patient is on a 30 mcg of propofol and the patient is adequately sedated. She remains on the mechanical ventilator assist-control mode with rate of 16, tidal volume of 350, FiO2 of 50% with a PEEP of 8. Blood gases show a pH of 7.41 with a pCO2 of 51 and pO2 of 82. No significant respiratory secretions. The sputum cultures and the bronchial aspirate this was collected and sent for culture showed presumptive Staph aureus and gram-negative bacillus and the patient remains on broad-spectrum antibiotics and the patient remains on a combination of Zosyn and vancomycin. Chest x-ray findings are essentially unchanged and the patient has diffuse bilateral patchy pulmonary infiltrates consistent with pneumonia. Meanwhile, the patient is on normal saline at rate of 100 cc an hour. Hemodynamically, she still requiring pressors and the patient is on norepinephrine at 0.06 mcg/kg/min. Earlier this morning, the patient was still tachycardic while being in atrial fibrillation. She was started on Cardizem drip at 5 mg an hour by cardiology. She remains on amiodarone 0.5 mg/min. The patient was also given metoprolol 25 mg p.o. twice daily and the patient remains on anticoagulation with Eliquis. She is receiving enteral feeding for nutritional support with vital high-protein at rate of 10 cc an hour. The white cell count is 14.3 with hemoglobin 9.5 and a platelet count of 375. Sodium is at 137, potassium is at 3.6, BUN is 8. The patient with a creatinine of 0.4 On 08/15/2024, the patient is being seen for a follow-up. On today's evaluation, the patient extremity, comfortable on propofol running at 30 mcg/kg/min. Chest x-ray shows stable bilateral pulmonary filtrates, essentially unchanged. The bronchial lavage that was obtained earlier was positive for MRSA and Morganella morganii and the patient remains on a combination of Zosyn and vancomycin. The patient remains on assist-control mode mechanical ventilation. The patient's current setting includes on assist-control mode with rate of 18, tidal volume of 350, FiO2 40% with a PEEP of 6. Blood gas showed a pH of 7.41 with a pCO2 of 52 and pO2 of 107 and there has been some improvement in the oxygenation. Fluid balance is +3.8 L. The patient remains on low-dose dose of norepinephrine running at 0.02 mcg/kg/min. IV fluids are in the form of normal saline at rate of 100 cc an hour and the patient's cardiac rhythm is converted into sinus. The patient is currently on oral amiodarone. The patient is also on vital high- protein at rate of 42 cc an hour and she is tolerating the enteral feeding. The white cell count of 12.7 with a hemoglobin 9.2 and a platelet count of 377. BUN is 9 with a creatinine of 0.4 and sodium levels at 138 with potassium level of 3.6. No other significant events overnight. On 08/16/2024, the patient is being seen for a follow-up. Remains sedated on propofol running at 30 mcg/kg/min. Chest x-ray still showing extensive bilateral consolidation and the previous bronchoalveolar lavage was consistent with Morganella morganii and MRSA. Remains on Zosyn and vancomycin. Remains on assist-control mode of mechanical ventilation at rate of 16, tidal volume of 350, FiO2 of 60% with a PEEP of 5. The blood gases from today shows a pH of 7.46 with a pCO2 of 53 and pO2 of 71. Fluid balance is positive around 3.8 L ov er the past 24 hours. IV fluids are currently at KVO. She remains on low-dose norepinephrine running at 0.08 mcg/kg/min. Overnight, the patient developed again atrial fibrillation with RVR. She was started on Cardizem drip at 5 mg an hour she is also back on IV amiodarone 0.5 mg/min. Vital high-protein for enteral feeding at rate of 42 cc an hour. The white cell count of 10.7 with a hemoglobin 9.2. Sodium is at 136, BUN is at 9 with a creatinine of 0.3 and a potassium level is at 3.3, needs to be replaced. No other significant events overnight. On 08/17/2024, the patient remains on the mechanical ventilator. This morning, the patient is on propofol for sedation and she is calm and comfortable. At the same time, she is on assist-control mode of mechanical ventilation at rate of 16 , tidal volume of 350, FiO2 of 50% with a PEEP of 5. Blood gas showed a pH of 7.55 with a pCO2 of 56 and pO2 of 90. Chest x-ray findings are essentially unchanged. CAT scan of the chest was obtained this morning and it shows bilateral consolidation left more than right consistent with pneumonia and there is also small to moderate-sized pleural effusion. The patient remains on a combination of cefepime and vancomycin and Eraxis. Afebrile. Hemodynamically, she remains on low-dose norepinephrine running at 0.06 mcg/kg/min. Cardiac rhythm is converted to sinus and the patient remains on Cardizem drip at 5 mg an hour and the patient is also on amiodarone drip. The patient was started on d iuretics. She is currently on a combination of Lasix and Zaroxolyn. She was receiving IV Lasix 40 mg IV every 8 hours and Zaroxolyn 5 mg p.o. twice a day. Fluid balance is -4.8 L over the past 24 hours. She remains on vital high- protein at rate of 40 cc an hour. The white cell count is 11 with a hemoglobin 9.6 and a platelet count of 383. Sodium is at 135, potassium is at 3.7, serum bicarb is at 44, BUN is 15 with a creatinine of 0.5. Calcium level is at 8.2. Patient was seen today on 08/18/24, remains in the ICU, intubated and mechanically ventilated, patient is on assist-control rate of 16 tidal volume 350 FiO2 50% PEEP of 5 ABG showed a pO2 of 98 pCO2 57 pH of 7.46 remains on norepinephrine at 0.03 mcg/kg/min propofol at 30 mcg/kg/min amiodarone 0.5 mg/min patient remains on cefepime and vancomycin she is also on Eraxis. Receiving nutritional support/vital HP at 42 cc/h. Patient has a right groin arterial line and triple-lumen catheter. She has a PEG and J-tube in place, p atient remains on antibiotics in the form of cefepime and vancomycin, she had positive sputum for MRSA and Morganella. Opens eyes, does not follow instructions today, patient is sedated, plan is to hold sedation and address mental status off sedation today. WBC count is 12.1 hemoglobin 9.4, Basic metabolic profile is normal bicarb is 14 renal profile is normal chest x-ray continues show bilateral bibasilar infiltrates consistent with aspiration pneumonia minimal improvement compared to baseline Patient was seen today on 08/19/2024 this note was dictated on 08/20 but is actually a note from 08/19/2024, apparently the note from 08/19 was deleted by mistake. At any rate patient was seen on 08/19, remains on mechanical ventilation, remains on assist-control rate of 16 tidal volume 350, FiO2 50% and PEEP of 5G showed a pO2 of 112 pCO2 52 pH of 7.49, patient remains on norepinephrine being titrated accordingly, remains on antibiotics including cefepime and vancomycin she is also on Eraxis. Continues to have significant airspace disease in both lungs. There is also a left upper lobe masslike consolidation in the left upper lobe, it is not clear whether this is a pneumonic process or malignancy. The plan is to address this eventually after the patient gets over this episode of respiratory failure. Patient does have positive sputum for Pseudomonas, and also positive system for Morganella morganii. Is arousable, follows very simple instructions, seems to be generally weak. WBC count 10.1 hemoglobin 8.8, electrolytes are normal BUN is 24 creatinine 0.65. Chest x-ray continues show evidence of bilateral airspace disease left more so than right Patient seen on 08/20/2024 patient remains in the ICU, intubated and mechanically ventilated, she is on assist-control rate of 16 tidal volume 350 FiO2 45% PEEP of 5 ABG showed a pO2 of 72 pCO2 48 pH of 7.51. Continues to use norepinephrine at 0.04 mcg/kg/min remains on propofol at 15 mcg/kg/min patient was transitioned from oral amiodarone to IV amiodarone at 0.5 mg/min she has vital AF at 10 cc/h surgery evaluated her gastric tube and did not feel there is any major concern but recommended trickle feeding patient remains on cefepime vancomycin and Eraxis remains on Lasix at 20 mg IV push every 8 hours patient is also on Diann penelope. Abdominal x-rays showed negative findings patient had a peak airway pressure of 26 Plateau pressure of 16 no changes again were made in her ventilator settings instructed nursing to lower down the dose the dose of norepinephrine and titrate to a mean arterial pressure of 65. Her atrial fibri llation remains poorly controlled and I believe the patient is not going to wean easily with poorly controlled atrial fibrillation. Daughter is at bedside today and she had lots of questions regarding her condition and regarding her left upper lobe masslike consolidation and I explained to her that this is to be addressed down the line once her clinical condition improves, patient is not a great candidate for bronchoscopy at this point or biopsy. Labs today were all reviewed WBC count is 11.6 hemoglobin 9.5, basic metabolic profile is relatively normal BUN is 31 creatinine 0.55 sputum cultures and abdominal wound cultures were reviewed Seen today on 08/21/2024, patient remains in the ICU, still intubated and mechanically ventilated, still on assist-control rate of 16 tidal volume 350 Fi O2 45% and PEEP of 5 ABG is marginal with a pO2 of 66 pCO2 44 pH of 7.53 her heart rate is better controlled, patient is now on amiodarone 0.5 mg/min she is also on Cardizem 7.5 mg/h norepinephrine is down to 0.03 mcg/kg/min propofol is off today she was on 20 mcg/kg/min earlier and I recommended stopping propofol, patient will be given trials of weaning she did go on pressure support of 10 with CPAP, however her tidal volumes are noted to be very low and marginal, increase the pressure support up to 12, and my plan is to keep her now at least for the time being on pressure support of 12 and CPAP. Better tidal volumes with pressure support of 12 but again not quite ready for weaning. Patient does have very shallow breathing and small tidal volumes most of the time. Remains on vancomycin and cefepime and Eraxis. ABG on pressure support of 10 look marginal, hence held back on extubation. Earlier today I recommended Lasix and she was given 40 mg IV push as well as her usual dose of Lasix which is 20 mg every 8 hours patient remains on Lasix and on Eliquis. Chest x-ray continues to show bilateral patchy opacities involving the left lung and right lower lobe, more airspace disease in the left lung and continues to have masslike consolidation in the left upper lobe apically. WBC count is 13.7 hemoglobin is 9 ABG on pressure support and CPAP seem to be similar to the ABG she had earlier today on assist-control mode of mechanical ventilation. She has relative hypoxia and slight hypercapnia. Patient remains metabolically alkalotic. Patient was evaluated today on 08/22/2024, patient was extubated today, tolerated the extubation quite well, she was on 5 L/min earlier today and no major issues overnight. Patient is on 0.9 normal saline at 20 cc/h she has vital HP at 20 cc /h still on amiodarone at 0.5 mg/min. Rounded on the patient, and she was noted to be doing well, did not seem to be in any distress, however while I was on rounds, I was called back to the room because the patient has had an episode of witnessed nausea and vomiting, and believes that she may have a bit of aspiration, patient desaturated down to the 70s placed on 10 L high flow nasal cannula remained in the high 70s then I recommended that we place the patient on Airvo, this will be titrated accordingly, chest x-ray showed no major change compared to her baseline chest x-ray done earlier today. Patient did not seem to be in any distress. her O2 saturation went up to 97% after placement on Airvo labs today were reviewed WBC count is 22.1 hemoglobin 9.7 electrolytes are normal renal profile is normal except bicarb of 39 BUN is 36 creatinine 0.56 Patient was seen today on 08/23/2024, patient remains in the ICU, remains on Airvo since she had that witnessed episode of aspiration yesterday. She is on 55% FiO2 60 L flow, very comfortable not in distress, patient is back on tube feeding, however she is being fed very slowly 10 cc/h. Remains on amiodarone at 0.5 mg/min, being addressed by cardiology chest x-ray continues show bilateral airspace disease left more so than right. Patient again remains marginal at best, but now that she is off the ventilator, she seems to be doing better. Remains on antibiotics continues to have leukocytosis with WBC count of 28.1 hemoglobin 9.7 electrolytes are normal renal profile is normal procalcitonin yesterday was 0.09. Seen today on 08/24/2023, patient remains in the ICU, tolerated the extubation well for the last few days, patient is on 60 L flow and 55% FiO2, she is on vancomycin, Eraxis, cefepime, and she is also on Lasix 20 mg IV push every 8 hours in addition she is also on Eliquis. Patient is being treated for MRSA pneumonia and pseudomonal infection with positive sputum for Morganella morganii. Patient had an episode of aspiration initially when she was admitted and she had another episode while inpatient. Today patient is sitting at the bedside chair, she is back on enteral feeding up to goal, patient is comfortable, does not seem to be in any distress however, chest x-ray continues show bilateral infiltrates left more so than right, still receiving antibiotics for presumptive pneumonia and she has some component of congestive heart failure. Patient is not requiring any pressors today she is noted to have leuk ocytosis with WBC count of 27.3 hemoglobin 10.5 electrolytes are normal bicarb is 39 BUN 32 creatinine 0.62 08/25/2024 patient seen and examined at bedside. Patient still in the ICU. Currently on Airvo 60L on 90% and comfortable. Still experiences oxygen desaturations despite being on Airvo throughout the night. Patient still on vancomycin IV, Eraxis IV, cefepime IV for MRSA pneumonia and pseudomonal infection and positive sputum for Morganella Morgagnii. She is also on Solumedrol 40mg IV every 8 hours and Lasix 20mg IV every 8 hours. Currently on vital AF at a rate of 45 for enteral feeding. WBC elevated at 34.9, hemoglobin 10.8, platelet count 677,000, sodium 134, potassium 3.6, chloride 90, bicarb 38, BUN 32, creatinine 0.56, glucose 156, calcium 9. Chest x-ray today shows persistent diffuse left and multifocal right lower acute infiltrates and/or edema no significant change PEG tube is in place. 08/26/2024 patient seen and examined at bedside. Patient still in the ICU. Curr ently on Airvo 56L on 93% and comfortable. Per night RN, patient required a few hours on nonrebreather overnight with Airvo. She is on Cordarone 200 p.o. twice daily, Lopressor 25 mg p.o. twice daily, Solumedrol 40mg IV every 8 hours and Lasix 20mg IV every 8 hours. Currently on vital AF at a rate of 45 for enteral feeding. WBC 28.9, hemoglobin 10.7, platelet count 637,000, sodium 134, potassium 4.9, chloride 93, bicarb 38, BUN 30, creatinine 0.47, glucose 165, calcium 8.8. Chest x-ray shows persistent diffuse left lung multifocal right lung acute infiltrates and/or edema with worsening findings on the right upper to midlung. Review of Systems: Pertinent positives and negatives mentioned above. Other systems have been negative. Physical Exam: GENERAL EXAM: 63-year-old female on Airvo, not in distress HEAD: Normocephalic and atraumatic EYES: PERRLA, EOMI, nonicteric no neck masses no JVD no stridor NOSE: Clear with pink turbinates. THROAT: Surgical scars noted in the neck area CHEST: No chest wall deformity. LUNGS: Diffuse expiratory wheezing and stridor in bilateral lung miller, no use of accessory muscles CVS: Regular rate and rhythm, no S3 gallop, no murmur Abdomen: Evidence of gastrostomy and jejunostomy tubes noted otherwise unremarkable SKIN: No rashes CENTRAL NERVOUS SYSTEM: Patient is awake, oriented x 3 no gross focal deficit except generally weak EXTREMITIES: There is no peripheral edema, clubbing, or cyanosis. Peripheral pulses are intact. Impression: -Active: Acute hypoxic respiratory failure secondary to aspiration pneumonia. Sputum positive for MRSA and positive for Morganella morganii as well as Rosa. Patient has been on prolonged antibiotics and antifungal. Extubated on 08/21/2024. Vancomycin, cefepime, and Eraxis discontinued on 08/25. 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 Per cardiology, they will transition to p.o. today. Continue amiodarone 200 mg p.o. twice daily Continue Lopressor 25 mg p.o. twice daily Continue Duoneb four times daily Continue nutritional support and enteral feeding to goal rate Patient may need physical therapy and eventually will require rehab GI prophylaxis: Pepcid 20 mg IV every 12 hours DVT prophylaxis: Eliquis 5mg twice daily Prognosis: pending clinical course. Will continue to follow Objective - Vital Signs Vital signs: Vital Signs Temp 97 F L 08/26/24 04:00 Pulse 61 08/26/24 07:00 Resp 12 08/26/24 07:00 BP 152/80 08/25/24 19:00 Pulse Ox 98 08/26/24 07:00 FiO2 60 08/26/24 04:13 Intake & Output 08/25/24 08/26/24 08/26/24 18:59 06:59 18:59 Intake Total 938 906 68 Output Total 1010 675 110 Balance -72 231 -42 Weight 57.2 kg 56.3 kg Intake: IV 353 276 23 0.9 NS 220 240 20 A Line 33 36 3 Potassium Chloride 20 meq 100 In Water For Injection 1 100ml.bag @ 50 mls/hr IVPB ONCE ONE Rx#: [id number] Tube Feeding 495 540 45 Other 90 90 Output: Urine 1010 675 110 Other: Voiding Method Indwelling Catheter Indwelling Catheter ABP, PAP, CO, CI - Last Documented Arterial Blood Pressure 110/46 - Labs CBC & Chem 7: 08/26/24 06:00 08/26/24 06:00 Labs: Abnormal Lab Results - Last 24 Hours (Table) 08/25/24 08/25/24 08/25/24 Range/Units 11:53 18:16 23:30 WBC (3.8-10.6) k/uL Hgb (11.4-16.0) gm/dL MCHC (31.0-37.0) g/dL Plt Count (150-450) k/uL Sodium (137-145) mmol/L Chloride (98-107) mmol/L Carbon Dioxide (22-30) mmol/L BUN (7-17) mg/dL Creatinine (0.52-1.04) mg/dL Glucose (74-99) mg/dL POC Glucose (mg/dL) 146 H 158 H 172 H (70-110) mg/dL 08/26/24 08/26/24 08/26/24 Range/Units 06:00 06:00 06:16 WBC 28.9 H (3.8-10.6) k/uL Hgb 10.7 L (11.4-16.0) gm/dL MCHC 30.3 L (31.0-37.0) g/dL Plt Count 637 H (150-450) k/uL Sodium 134 L (137-145) mmol/L Chloride 93 L (98-107) mmol/L Carbon Dioxide 38 H (22-30) mmol/L BUN 30 H (7-17) mg/dL Creatinine 0.47 L (0.52-1.04) mg/dL Glucose 165 H (74-99) mg/dL POC Glucose (mg/dL) 173 H (70-110) mg/dL
[2024-08-26] MEDS ORDERED: VANCOMYCIN TROUGH DUE 1 EACH MISC MISCELLANE ONE (11:00)
--- NOTE | 2024-08-26 11:52 | PN ---
PROGRESS NOTE SUBJECTIVE: This is a 64-year-old lady, who is admitted to hospital with aspiration pneumonia and respiratory failure. We are involved in her care because of paroxysmal atrial fibrillation. She has history of head and neck cancer and underwent surgery and currently has a PEG tube in. This morning, from cardiac standpoint, she remains in sinus rhythm and stable. MEDICATIONS: Include, 1. Cordarone 200 b.i.d. 2. Eliquis 5 b.i.d. 3. Lasix. 4. Lopressor 25 b.i.d. OBJECTIVE: VITAL SIGNS: Heart rate is 73, blood pressure is 142/59, respiratory rate is 18. CHEST: Reveals good air entry bilaterally. HEART: Reveals first and second heart sounds. No gallop. EXTREMITIES: Did not reveal any edema. LABORATORY DATA: Labs show that the hemoglobin is 10.7, platelet count is 630, potassium is 4.9, creatinine 0.4. ASSESSMENT: Paroxysmal atrial fibrillation. PLAN: The patient will continue with amiodarone, Eliquis, and metoprolol. MMODL / IJN: [id number] /
[2024-08-26 12:07] LABS: Glucose,Whole Blood 146 mg/dL (70-110)
[2024-08-26] MEDS: MULTIVITAMINS, THERA 1 EACH TAB PO SCH (12:09)
[2024-08-26] MEDS: FOLIC ACID 1 MG TAB PO SCH (12:09)
--- NOTE | 2024-08-26 14:38 | P.PN ---
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 Patient chest x-ray right lower lobe infiltrate. On today's evaluation that is 08/25/2024, patient has been afebrile, patient is breathing comfortably however still requiring high flow nasal cannula oxygen currently 90% FiO2 patient denies any chest pain or worsening cough no vomiting or any worsening diarrhea reported. Patient white count is up to 34.9, creatinine 0.56 Objective - Vital Signs Vital signs: Vital Signs Temp 97.7 F 08/25/24 00:00 Pulse 70 08/25/24 08:02 Resp 18 08/25/24 07:00 BP 152/80 08/24/24 16:00 Pulse Ox 93 L 08/25/24 07:00 FiO2 90 08/25/24 07:45 Intake & Output 08/24/24 08/25/24 08/25/24 18:59 06:59 18:59 Intake Total 1391 1324 Output Total 2290 1070 Balance -899 254 Intake: IV 626 649 0.9 NS 240 260 A Line 36 39 Cefepime 2 gm In Sodium 100 100 Chloride 0.9% 100 ml @ 25 mls/hr IVPB Q8HR [facility] Rx# :[id number] Vancomycin 1,000 mg In 250 250 Sodium Chloride 0.9% 250 ml @ 125 mls/hr IVPB Q12H [facility] Rx#:[id number] Tube Feeding 485 585 Other 280 90 Output: Urine 2190 1070 Stool 100 Other: Voiding Method Indwelling Catheter Indwelling Catheter ABP, PAP, CO, CI - Last Documented Arterial Blood Pressure 141/54 - Exam GENERAL DESCRIPTION: Elderly female lying in bed in no distress RESPIRATORY SYSTEM: Unlabored breathing , decreased breath sounds at bases HEART: S1 S2 regular rate and rhythm , ABDOMEN: Soft , no tenderness EXTREMITIES: No edema feet - Labs CBC & Chem 7: 08/26/24 06:00 08/26/24 06:00 Labs: Abnormal Lab Results - Last 24 Hours (Table) 08/24/24 08/24/2425 Range/Units 11:50 18:08 23:30 WBC (3.8-10.6) k/uL Hgb (11.4-16.0) gm/dL Plt Count (150-450) k/uL Neutrophils # (1.3-7.7) k/uL Lymphocytes # (1.0-4.8) k/uL Sodium (137-145) mmol/L Chloride (98-107) mmol/L Carbon Dioxide (22-30) mmol/L BUN (7-17) mg/dL Glucose (74-99) mg/dL POC Glucose (mg/dL) 197 H 192 H 193 H (70-110) mg/dL 08/25/24 08/25/24 08/25/24 Range/Units 04:51 06:00 06:00 WBC 34.9 H (3.8-10.6) k/uL Hgb 10.8 L (11.4-16.0) gm/dL Plt Count 677 H (150-450) k/uL Neutrophils # 33.4 H (1.3-7.7) k/uL Lymphocytes # 0.8 L (1.0-4.8) k/uL Sodium 134 L (137-145) mmol/L Chloride 90 L (98-107) mmol/L Carbon Dioxide 38 H (22-30) mmol/L BUN 32 H (7-17) mg/dL Glucose 156 H (74-99) mg/dL POC Glucose (mg/dL) 189 H (70-110) mg/dL Assessment and Plan (1) MRSA (methicillin resistant Staphylococcus aureus) infection Current Visit: Yes Status: Acute Code(s): A49.02 - METHICILLIN RESIS STAPH INFECTION, [facility] SITE SNOMED Code(s): 040306301 (2) Allergy to sulfa drugs Current Visit: Yes Status: Acute Code(s): Z88.2 - ALLERGY STATUS TO SULFONAMIDES SNOMED Code(s): 09787958 (3) Failure of outpatient treatment Current Visit: Yes Status: Acute Code(s): Z78.9 - OTHER SPECIFIED HEALTH STATUS SNOMED Code(s): 884614210 (4) Pneumonia Current Visit: Yes Status: Acute Code(s): J18.9 - PNEUMONIA, UNSPECIFIED ORGANISM SNOMED Code(s): 041660795 Plan: 1patient with acute respiratory failure currently on the ventilator which is likely multifactorial likely component of A-fib with RVR/CHF and pneumonia the sputum has been growing MRSA and Morganella, patient is currently afebrile and white count has normalized chest x-ray from this morning showing mostly CHF and improving CHF pattern patient did have a CT done on 08/17/2024 that was suggestive of left upper lobe consolidation/mass which the family has been concerned about it has been discussed in detail for better evaluation she may need bronchoscopy however per pulmonary note patient was not stable enough to go for the bronchoscopy and wants to do CAT scan in the outpatient setting 2-patient also have some drainage around the feeding tube site which has been cu ltured per granddaughter request and is growing multiple pathogen including Pseudomonas which is sensitive to cefepime and MRSA 3-patient also have diarrhea stool for C. difficile has been negative, stool output and consistency has improved per the nursing staff, continue with Questran for symptomatic relief 4-patient remains to be afebrile, patient white count slightly up to 34,000 more likely related to steroids, patient has received adequate antibiotic and her antibiotic has been discontinued by pulmonary we will monitor closely off antibiotic for another 24 hours Dictation was produced using [employer] dictation software. please excuse any grammatical, word or spelling errors. Time with Patient: Less than 30
--- NOTE | 2024-08-26 14:39 | P.PN ---
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 Patient chest x-ray right lower lobe infiltrate. On today's evaluation that is 08/26/2024, Patient is afebrile this morning patient denies having any chest pain or shortness of breath or cough, the patient is still requiring high flow nasal cannula oxygen however FiO2 is down to 80%, patient denies any abdominal pain no nausea no vomiting or worsening d iarrhea. Patient white count is down to 28.9, creatinine 0.47 Objective - Vital Signs Vital signs: Vital Signs Temp 97.7 F 08/26/24 08:00 Pulse 73 08/26/24 10:00 Resp 15 08/26/24 10:00 BP 152/80 08/26/24 09:00 Pulse Ox 97 08/26/24 10:00 FiO2 90 08/26/24 08:54 Intake & Output 08/25/24 08/26/24 08/26/24 18:59 06:59 18:59 Intake Total 938 906 392 Output Total 1010 675 355 Balance -72 231 37 Weight 57.2 kg 56.3 kg Intake: IV 353 276 92 0.9 NS 220 240 80 A Line 33 36 12 Potassium Chloride 20 meq 100 In Water For Injection 1 100ml.bag @ 50 mls/hr IVPB ONCE ONE Rx#: [id number] Oral 90 Tube Feeding 495 540 180 Other 90 90 30 Output: Urine 1010 675 355 Other: Voiding Method Indwelling Catheter Indwelling Catheter Indwelling Catheter ABP, PAP, CO, CI - Last Documented Arterial Blood Pressure 158/66 - Exam GENERAL DESCRIPTION: Elderly female up in the chair in no distress RESPIRATORY SYSTEM: Unlabored breathing , decreased breath sounds at bases HEART: S1 S2 regular rate and rhythm , ABDOMEN: Soft , no tenderness EXTREMITIES: No edema feet - Labs CBC & Chem 7: 08/26/24 06:00 08/26/24 06:00 Labs: Abnormal Lab Results - Last 24 Hours (Table) 08/25/24 08/25/24 08/25/24 Range/Units 11:53 18:16 23:30 WBC (3.8-10.6) k/uL Hgb (11.4-16.0) gm/dL MCHC (31.0-37.0) g/dL Plt Count (150-450) k/uL Sodium (137-145) mmol/L Chloride (98-107) mmol/L Carbon Dioxide (22-30) mmol/L BUN (7-17) mg/dL Creatinine (0.52-1.04) mg/dL Glucose (74-99) mg/dL POC Glucose (mg/dL) 146 H 158 H 172 H (70-110) mg/dL 08/26/24 08/26/24 08/26/24 Range/Units 06:00 06:00 06:16 WBC 28.9 H (3.8-10.6) k/uL Hgb 10.7 L (11.4-16.0) gm/dL MCHC 30.3 L (31.0-37.0) g/dL Plt Count 637 H (150-450) k/uL Sodium 134 L (137-145) mmol/L Chloride 93 L (98-107) mmol/L Carbon Dioxide 38 H (22-30) mmol/L BUN 30 H (7-17) mg/dL Creatinine 0.47 L (0.52-1.04) mg/dL Glucose 165 H (74-99) mg/dL POC Glucose (mg/dL) 173 H (70-110) mg/dL Assessment and Plan (1) MRSA (methicillin resistant Staphylococcus aureus) infection Current Visit: Yes Status: Acute Code(s): A49.02 - METHICILLIN [facility] STAPH [facility]FE[facility] Code(s): 723256740 (2) Allergy to sulfa drugs Current Visit: Yes Status: Acute Code(s): Z88.2 - ALLERGY STATUS TO SULFO NAMIDES SNOMED Code(s): 92264800 (3) Failure of outpatient treatment Current Visit: Yes Status: Acute Code(s): Z78.9 - OTHER SPECIFIED HEALTH STATUS SNOMED Code(s): 176981320 (4) Pneumonia Current Visit: Yes Status: Acute Code(s): J18.9 - PNEUMONIA, UNSPECIFIED ORGANISM SNOMED Code(s): 468602801 Plan: 1patient with acute respiratory failure currently on the ventilator which is likely multifactorial likely component of A-fib with RVR/CHF and pneumonia the sputum has been growing MRSA and Morganella, patient is currently afebrile and white count has normalized chest x-ray from this morning showing mostly CHF and improving CHF pattern patient did have a CT done on 08/17/2024 that was sugge stive of left upper lobe consolidation/mass which the family has been concerned about it has been discussed in detail for better evaluation she may need bronchoscopy however per pulmonary note patient was not stable enough to go for the bronchoscopy and wants to do CAT scan in the outpatient setting 2-patient also have some drainage around the feeding tube site which has been cultured per granddaughter request and is growing multiple pathogen including Pseudomonas which is sensitive to cefepime and MRSA 3-patient also have diarrhea stool for C. difficile has been negative, stool output and consistency has improved per the nursing staff, continue with Questran for symptomatic relief 4-patient remains to be afebrile, patient white count is down to 28,000 more likely related to steroids, patient has received adequate antibiotic and her antibiotic has been discontinued by pulmonary as of 08/25/2024 the patient seems to be doing well off antibiotic for more than 24 hours ID will sign off please call back if any question regarding her infectious disease care Dictation was produced using [employer] dictation software. please excuse any grammatical, word or spelling errors. Time with Patient: Less than 30
[2024-08-26 17:27] LABS: Glucose,Whole Blood 174 mg/dL (70-110)
[2024-08-26 23:35] LABS: Glucose,Whole Blood 175 mg/dL (70-110)
--- NOTE | 2024-08-27 02:56 | PN ---
PROGRESS NOTE DATE OF SERVICE: 08/26/2024 SUBJECTIVE: This is a 64-year-old woman, who was admitted with COPD and aspiration pneumonia, is being closely monitored. The patient is still hypoxic. Multiple consultants are following the patient closely. The patient is monitored in the ICU. Most recent chest x-ray reviewed shows still bilateral pneumonia. PAST MEDICAL HISTORY: Reviewed. REVIEW OF SYSTEMS: A 14-point review of systems is negative except as mentioned earlier. CURRENT MEDICATIONS: Reviewed. PHYSICAL EXAMINATION: VITAL SIGNS: Pulse is 60, blood pressure 128/46, respirations 13. HEENT: Conjunctivae normal. NECK: No JVD. CARDIOVASCULAR: S1, S2. RESPIRATIONS: Breath sounds diminished at the bases. A few scattered rhonchi and crackles. ABDOMEN: Soft. NERVOUS SYSTEM: Nonfocal. LABORATORY DATA: WBC 28.9, mostly neutrophils. Cultures are polymicrobial. ASSESSMENT: 1. Bilateral aspiration pneumonia with possible MRSA, Morganella with possible sepsis. 2. Rosa albicans, strep group A from the sputum. 3. Acute hypoxic respiratory failure. 4. Protein calorie malnutrition. 5. PEG tube. 6. Chronic obstructive pulmonary disease acute exacerbation. 7. History of seizures. 8. Elevated WBC. RECOMMENDATIONS AND DISCUSSION: Recommend to continue current management and continue symptomatic treatment. Otherwise, continue with steroids, bronchodilators. Closely follow. Guarded prognosis. Further recommendations to follow. MMODL / IJN: [id number] /
[2024-08-27 04:02] LABS: African American GFR (CKD) >90 (>60 ml/min/1.73 sqM); Anion Gap 2 mmol/L; Blood Urea Nitrogen 31 mg/dL (7-17); Carbon Dioxide 38 mmol/L (22-30); Chloride 95 mmol/L (98-107); Glucose 174 mg/dL (74-99); Non-African American GFR(CKD) >90 (>60 ml/min/1.73 sqM); Potassium 4.7 mmol/L (3.5-5.1); Sodium 135 mmol/L (137-145)
[2024-08-27 04:59] LABS: HCT 33.6 % (34.0-46.0); HGB 10.2 gm/dL (11.4-16.0); Hypochromasia Moderate; MCH 28.1 pg (25.0-35.0); MCHC 30.2 g/dL (31.0-37.0); Mean Platelet Volume 9.8; Platelet Count 597 k/uL (150-450); RBC 3.61 m/uL (3.80-5.40); RDW 15.3 % (11.5-15.5); WBC 30.9 k/uL (3.8-10.6)
[2024-08-27 05:34] LABS: Glucose,Whole Blood 176 mg/dL (70-110)
[2024-08-27 05:58] LABS: Lymphocytes # (M) 0.62 k/uL (1.0-4.8); Monocytes # (M) 0.31 k/uL (0-1.0); Neutrophils # (M) 30.28 k/uL (1.3-7.7); Neutrophils % (M) 98 %; Nucleated Red Blood Cells 0 /100 WBC (0-0); Total Cells Counted 200
--- NOTE | 2024-08-27 07:53 | XR ---
EXAMINATION TYPE: XR chest 1V portable DATE OF EXAM: 08/27/2024 CLINICAL HISTORY: Multifocal pneumonia progress study. TECHNIQUE: Single AP portable upright view of the chest is obtained. COMPARISON: Chest x-ray from one day earlier and older studies. FINDINGS: Persistent diffuse left lung and multifocal right lung increased opacities redemonstrated. Perhaps some improved aeration or change in technique particularly left upper lung. Stable mild card iomegaly and small left pleural effusion. A staple projects over the trachea similar to priors. A PEG tube is partially imaged. IMPRESSION: Persistent diffuse left lung and multifocal right lung acute infiltrates and/or edema. Some improvement in the left upper lung is thought present from one day earlier. [facility], , 08/27/2024 7:51 AM
--- NOTE | 2024-08-27 10:42 | P.PN ---
Subjective Progress Note Date: 08/27/24 08/11/2023, the patient is being seen for a follow-up. Is a 63-year-old female patient with past medical history of oral cancer and previous radical neck dissection followed by radiation therapy and reconstructive surgery and the patient suffers from chronic dysphagia and the patient has PEG tube. 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 She has history of atrial fibrillation, hypothyroidism and seizure disorders. For now, the patient is in the intensive care unit for an acute hypoxic respiratory failure. The patient is currently on Airvo at 60 L with an FiO2 of 90% %. Chest x-ray shows bilateral lower lobe consolidation and possibly some small effusions. Antibiotic coverage is with IV Eraxis, vancomycin and Rocephin. Sputum samples collected on 08/06/2024 was consistent with MRSA, Morganella morganii and strep agalactiae. The patient had developed significant leukocytosis which is downtrending and the white cell count from yesterday was down to 16. Patient also developed atrial fibrillation with rapid ventricular response over the past 24 to 48 hours. The patient based on that was started on Cardizem drip and she is already anticoagulated with Eliquis. She remains on Cardizem at 10 mg an hour. She is also on metoprolol 25 mg p.o. twice daily for rate control. The patient is also on oxygen and Airvo settings this morning is 6 L with an FiO2 of 90%. The patient has a J-tube for feeding receiving Jevity 1.5 at the rate of 40 cc an hour. The J-tube was replaced yesterday. This was done by general surgery. CAT scan of the abdomen done on 08/09/2024 showed that the jejunostomy tube was grossly intact. Nevertheless, it there was evidence of lower lobe consolidations bilaterally worse on the left. 08/12/2023, the patient is being seen for a follow-up. Condition is gradually compensated over the past 24 hours and the patient has become more hypoxic related to her pneumonia. Noted the patient was on high flow oxygen, Airvo 60 L with an FiO2 of 90%. Subsequently, she was given 100% nonrebreather facemask and the patient continued to have episodes of desaturation. At a later stage, overnight, the patient was placed on a BiPAP and currently she is on a BiPAP pressure of 15 over 10 cm of water with an FiO2 of 100%. Initially, this morning, she was still desaturating and her blood gas was obtained which showed a pH of 7.33 with a pCO2 of 74 and pO2 of 49. I attended on this patient immediately. I wanted to intubate the patient. However, I do acknowledge that this is going to be an extremely difficult intubation as the patient does not have any ability to open up her mouth due to chronic scarring in her neck muscles and scarring of her jaw and her neck is significantly scarred up and stiff related to previous radiation therapy. While adjusting the BiPAP mask, we improved the leaks and the pulse ox improved currently she is pulse oxing in order of 91 to 93%. Reviewed the chest x-ray from today shows diffuse bilateral airspace disease consistent with pneumonia. No evidence of any pneumothorax. The patient continues to have a congested cough. No significant sputum production. Despite his ongoing hypoxemia, she is breathing comfortably. Her current respiratory rate is in the mid 20s. She is still awake and communicating. No fever. No hemodynamic instability. She remains in atrial fibrillation. Antibiotic coverage remains unchanged and the patient remains on a combination of Rocephin and vancomycin and Eraxis. The fluid balance has been negative over the past 24 hours. The white cell count is at 18.10.8 and this is. Calcium level 6. The patient remains on DuoNeb nebulized treatments. In terms of her ongoing atrial fibrillation, she is on Cardizem drip at 15 mg an hour. She remains on anticoagulation with Eliquis. She is also on metoprololAt a dose of 25 mg p.o. twice a day. No hypotension. Hemodynamically stable. IV fluids are currently at KVO. On 08/13/2024, the patient is being seen for a follow-up. As mentioned, the patient was intubated yesterday and placed on mechanical ventilation due to bilateral pneumonia that was further complicated by an episode of aspiration. This morning, the patient is sedated and the patient is calm and comfortable. She is on assist-control mode of mechanical ventilation. He is on a rate of 16 with a tidal volume of 350 and FiO2 of 50% with a PEEP of 8. The blood gas showed a pH of 7.45 with a pCO2 of 54 and pO2 of 91. Chest x-ray is consistent with diffuse bilateral pulmonary filtrates/pneumonia. Bronchoscopy was also done and another bronchial aspirate was obtained, pending further cultures. She is calm and comfortable on propofol running at 35 mcg/kg/min. Noted post intubation, the patient became hypotensive. Received a liter bolus and currently she is on normal saline at rate of 100 cc an hour. Norepinephrine is running at 0.15 mcg/kg/min. She remains in atrial fibrillation. She is on amiodarone drip at 0.5 mg/min and she is also on Cardizem drip. Slightly tachycardic. Remains on Rocephin and vancomycin and Rocephin will be switched to Zosyn. Lasix will also to be discontinued. Enteral feeding is to be started today. The white cell count of 21 with a hemoglobin 10.3 and a platelet count of 427. Sodium is at 138, BUN 13 creatinine 0.4 and a potassium level is at 3.2 with a bicarb level of 37 On 08/14/2024, the patient is being seen for a follow-up. The patient remains intubated on the mechanical ventilator. Earlier this morning, the patient is on a 30 mcg of propofol and the patient is adequately sedated. She remains on the mechanical ventilator assist-control mode with rate of 16, tidal volume of 350, FiO2 of 50% with a PEEP of 8. Blood gases show a pH of 7.41 with a pCO2 of 51 and pO2 of 82. No significant respiratory secretions. The sputum cultures and the bronchial aspirate this was collected and sent for culture showed presumptive Staph aureus and gram-negative bacillus and the patient remains on broad-spectrum antibiotics and the patient remains on a combination of Zosyn and vancomycin. Chest x-ray findings are essentially unchanged and the patient has diffuse bilateral patchy pulmonary infiltrates consistent with pneumonia. Meanwhile, the patient is on normal saline at rate of 100 cc an hour. Hemodynamically, she still requiring pressors and the patient is on norepinephrine at 0.06 mcg/kg/min. Earlier this morning, the patient was still tachycardic while being in atrial fibrillation. She was started on Cardizem drip at 5 mg an hour by cardiology. She remains on amiodarone 0.5 mg/min. The patient was also given metoprolol 25 mg p.o. twice daily and the patient remains on anticoagulation with Eliquis. She is receiving enteral feeding for nutritional support with vital high-protein at rate of 10 cc an hour. The white cell count is 14.3 with hemoglobin 9.5 and a platelet count of 375. Sodium is at 137, potassium is at 3.6, BUN is 8. The patient with a creatinine of 0.4 On 08/15/2024, the patient is being seen for a follow-up. On today's evaluation, the patient extremity, comfortable on propofol running at 30 mcg/kg/min. Chest x-ray shows stable bilateral pulmonary filtrates, essentially unchanged. The bronchial lavage that was obtained earlier was positive for MRSA and Morganella morganii and the patient remains on a combination of Zosyn and vancomycin. The patient remains on assist-control mode mechanical ventilation. The patient's current setting includes on assist-control mode with rate of 18, tidal volume of 350, FiO2 40% with a PEEP of 6. Blood gas showed a pH of 7.41 with a pCO2 of 52 and pO2 of 107 and there has been some improvement in the oxygenation. Fluid balance is +3.8 L. The patient remains on low-dose dose of norepinephrine running at 0.02 mcg/kg/min. IV fluids are in the form of normal saline at rate of 100 cc an hour and the patient's cardiac rhythm is converted into sinus. The patient is currently on oral amiodarone. The patient is also on vital high- protein at rate of 42 cc an hour and she is tolerating the enteral feeding. The white cell count of 12.7 with a hemoglobin 9.2 and a platelet count of 377. BUN is 9 with a creatinine of 0.4 and sodium levels at 138 with potassium level of 3.6. No other significant events overnight. On 08/16/2024, the patient is being seen for a follow-up. Remains sedated on propofol running at 30 mcg/kg/min. Chest x-ray still showing extensive bilateral consolidation and the previous bronchoalveolar lavage was consistent with Morganella morganii and MRSA. Remains on Zosyn and vancomycin. Remains on assist-control mode of mechanical ventilation at rate of 16, tidal volume of 350, FiO2 of 60% with a PEEP of 5. The blood gases from today shows a pH of 7.46 with a pCO2 of 53 and pO2 of 71. Fluid balance is positive around 3.8 L ov er the past 24 hours. IV fluids are currently at KVO. She remains on low-dose norepinephrine running at 0.08 mcg/kg/min. Overnight, the patient developed again atrial fibrillation with RVR. She was started on Cardizem drip at 5 mg an hour she is also back on IV amiodarone 0.5 mg/min. Vital high-protein for enteral feeding at rate of 42 cc an hour. The white cell count of 10.7 with a hemoglobin 9.2. Sodium is at 136, BUN is at 9 with a creatinine of 0.3 and a potassium level is at 3.3, needs to be replaced. No other significant events overnight. On 08/17/2024, the patient remains on the mechanical ventilator. This morning, the patient is on propofol for sedation and she is calm and comfortable. At the same time, she is on assist-control mode of mechanical ventilation at rate of 16 , tidal volume of 350, FiO2 of 50% with a PEEP of 5. Blood gas showed a pH of 7.55 with a pCO2 of 56 and pO2 of 90. Chest x-ray findings are essentially unchanged. CAT scan of the chest was obtained this morning and it shows bilateral consolidation left more than right consistent with pneumonia and there is also small to moderate-sized pleural effusion. The patient remains on a combination of cefepime and vancomycin and Eraxis. Afebrile. Hemodynamically, she remains on low-dose norepinephrine running at 0.06 mcg/kg/min. Cardiac rhythm is converted to sinus and the patient remains on Cardizem drip at 5 mg an hour and the patient is also on amiodarone drip. The patient was started on d iuretics. She is currently on a combination of Lasix and Zaroxolyn. She was receiving IV Lasix 40 mg IV every 8 hours and Zaroxolyn 5 mg p.o. twice a day. Fluid balance is -4.8 L over the past 24 hours. She remains on vital high- protein at rate of 40 cc an hour. The white cell count is 11 with a hemoglobin 9.6 and a platelet count of 383. Sodium is at 135, potassium is at 3.7, serum bicarb is at 44, BUN is 15 with a creatinine of 0.5. Calcium level is at 8.2. Patient was seen today on 08/18/24, remains in the ICU, intubated and mechanically ventilated, patient is on assist-control rate of 16 tidal volume 350 FiO2 50% PEEP of 5 ABG showed a pO2 of 98 pCO2 57 pH of 7.46 remains on norepinephrine at 0.03 mcg/kg/min propofol at 30 mcg/kg/min amiodarone 0.5 mg/min patient remains on cefepime and vancomycin she is also on Eraxis. Receiving nutritional support/vital HP at 42 cc/h. Patient has a right groin arterial line and triple-lumen catheter. She has a PEG and J-tube in place, p atient remains on antibiotics in the form of cefepime and vancomycin, she had positive sputum for MRSA and Morganella. Opens eyes, does not follow instructions today, patient is sedated, plan is to hold sedation and address mental status off sedation today. WBC count is 12.1 hemoglobin 9.4, Basic metabolic profile is normal bicarb is 14 renal profile is normal chest x-ray continues show bilateral bibasilar infiltrates consistent with aspiration pneumonia minimal improvement compared to baseline Patient was seen today on 08/19/2024 this note was dictated on 08/20 but is actually a note from 08/19/2024, apparently the note from 08/19 was deleted by mistake. At any rate patient was seen on 08/19, remains on mechanical ventilation, remains on assist-control rate of 16 tidal volume 350, FiO2 50% and PEEP of 5G showed a pO2 of 112 pCO2 52 pH of 7.49, patient remains on norepinephrine being titrated accordingly, remains on antibiotics including cefepime and vancomycin she is also on Eraxis. Continues to have significant airspace disease in both lungs. There is also a left upper lobe masslike consolidation in the left upper lobe, it is not clear whether this is a pneumonic process or malignancy. The plan is to address this eventually after the patient gets over this episode of respiratory failure. Patient does have positive sputum for Pseudomonas, and also positive system for Morganella morganii. Is arousable, follows very simple instructions, seems to be generally weak. WBC count 10.1 hemoglobin 8.8, electrolytes are normal BUN is 24 creatinine 0.65. Chest x-ray continues show evidence of bilateral airspace disease left more so than right Patient seen on 08/20/2024 patient remains in the ICU, intubated and mechanically ventilated, she is on assist-control rate of 16 tidal volume 350 FiO2 45% PEEP of 5 ABG showed a pO2 of 72 pCO2 48 pH of 7.51. Continues to use norepinephrine at 0.04 mcg/kg/min remains on propofol at 15 mcg/kg/min patient was transitioned from oral amiodarone to IV amiodarone at 0.5 mg/min she has vital AF at 10 cc/h surgery evaluated her gastric tube and did not feel there is any major concern but recommended trickle feeding patient remains on cefepime vancomycin and Eraxis remains on Lasix at 20 mg IV push every 8 hours patient is also on Diann penelope. Abdominal x-rays showed negative findings patient had a peak airway pressure of 26 Plateau pressure of 16 no changes again were made in her ventilator settings instructed nursing to lower down the dose the dose of norepinephrine and titrate to a mean arterial pressure of 65. Her atrial fibri llation remains poorly controlled and I believe the patient is not going to wean easily with poorly controlled atrial fibrillation. Daughter is at bedside today and she had lots of questions regarding her condition and regarding her left upper lobe masslike consolidation and I explained to her that this is to be addressed down the line once her clinical condition improves, patient is not a great candidate for bronchoscopy at this point or biopsy. Labs today were all reviewed WBC count is 11.6 hemoglobin 9.5, basic metabolic profile is relatively normal BUN is 31 creatinine 0.55 sputum cultures and abdominal wound cultures were reviewed Seen today on 08/21/2024, patient remains in the ICU, still intubated and mechanically ventilated, still on assist-control rate of 16 tidal volume 350 Fi O2 45% and PEEP of 5 ABG is marginal with a pO2 of 66 pCO2 44 pH of 7.53 her heart rate is better controlled, patient is now on amiodarone 0.5 mg/min she is also on Cardizem 7.5 mg/h norepinephrine is down to 0.03 mcg/kg/min propofol is off today she was on 20 mcg/kg/min earlier and I recommended stopping propofol, patient will be given trials of weaning she did go on pressure support of 10 with CPAP, however her tidal volumes are noted to be very low and marginal, increase the pressure support up to 12, and my plan is to keep her now at least for the time being on pressure support of 12 and CPAP. Better tidal volumes with pressure support of 12 but again not quite ready for weaning. Patient does have very shallow breathing and small tidal volumes most of the time. Remains on vancomycin and cefepime and Eraxis. ABG on pressure support of 10 look marginal, hence held back on extubation. Earlier today I recommended Lasix and she was given 40 mg IV push as well as her usual dose of Lasix which is 20 mg every 8 hours patient remains on Lasix and on Eliquis. Chest x-ray continues to show bilateral patchy opacities involving the left lung and right lower lobe, more airspace disease in the left lung and continues to have masslike consolidation in the left upper lobe apically. WBC count is 13.7 hemoglobin is 9 ABG on pressure support and CPAP seem to be similar to the ABG she had earlier today on assist-control mode of mechanical ventilation. She has relative hypoxia and slight hypercapnia. Patient remains metabolically alkalotic. Patient was evaluated today on 08/22/2024, patient was extubated today, tolerated the extubation quite well, she was on 5 L/min earlier today and no major issues overnight. Patient is on 0.9 normal saline at 20 cc/h she has vital HP at 20 cc /h still on amiodarone at 0.5 mg/min. Rounded on the patient, and she was noted to be doing well, did not seem to be in any distress, however while I was on rounds, I was called back to the room because the patient has had an episode of witnessed nausea and vomiting, and believes that she may have a bit of aspiration, patient desaturated down to the 70s placed on 10 L high flow nasal cannula remained in the high 70s then I recommended that we place the patient on Airvo, this will be titrated accordingly, chest x-ray showed no major change compared to her baseline chest x-ray done earlier today. Patient did not seem to be in any distress. her O2 saturation went up to 97% after placement on Airvo labs today were reviewed WBC count is 22.1 hemoglobin 9.7 electrolytes are normal renal profile is normal except bicarb of 39 BUN is 36 creatinine 0.56 Patient was seen today on 08/23/2024, patient remains in the ICU, remains on Airvo since she had that witnessed episode of aspiration yesterday. She is on 55% FiO2 60 L flow, very comfortable not in distress, patient is back on tube feeding, however she is being fed very slowly 10 cc/h. Remains on amiodarone at 0.5 mg/min, being addressed by cardiology chest x-ray continues show bilateral airspace disease left more so than right. Patient again remains marginal at best, but now that she is off the ventilator, she seems to be doing better. Remains on antibiotics continues to have leukocytosis with WBC count of 28.1 hemoglobin 9.7 electrolytes are normal renal profile is normal procalcitonin yesterday was 0.09. Seen today on 08/24/2023, patient remains in the ICU, tolerated the extubation well for the last few days, patient is on 60 L flow and 55% FiO2, she is on vancomycin, Eraxis, cefepime, and she is also on Lasix 20 mg IV push every 8 hours in addition she is also on Eliquis. Patient is being treated for MRSA pneumonia and pseudomonal infection with positive sputum for Morganella morganii. Patient had an episode of aspiration initially when she was admitted and she had another episode while inpatient. Today patient is sitting at the bedside chair, she is back on enteral feeding up to goal, patient is comfortable, does not seem to be in any distress however, chest x-ray continues show bilateral infiltrates left more so than right, still receiving antibiotics for presumptive pneumonia and she has some component of congestive heart failure. Patient is not requiring any pressors today she is noted to have leuk ocytosis with WBC count of 27.3 hemoglobin 10.5 electrolytes are normal bicarb is 39 BUN 32 creatinine 0.62 08/25/2024 patient seen and examined at bedside. Patient still in the ICU. Currently on Airvo 60L on 90% and comfortable. Still experiences oxygen desaturations despite being on Airvo throughout the night. Patient still on vancomycin IV, Eraxis IV, cefepime IV for MRSA pneumonia and pseudomonal infection and positive sputum for Morganella Morgagnii. She is also on Solumedrol 40mg IV every 8 hours and Lasix 20mg IV every 8 hours. Currently on vital AF at a rate of 45 for enteral feeding. WBC elevated at 34.9, hemoglobin 10.8, platelet count 677,000, sodium 134, potassium 3.6, chloride 90, bicarb 38, BUN 32, creatinine 0.56, glucose 156, calcium 9. Chest x-ray today shows persistent diffuse left and multifocal right lower acute infiltrates and/or edema no significant change PEG tube is in place. 08/26/2024 patient seen and examined at bedside. Patient still in the ICU. Curr ently on Airvo 56L on 93% and comfortable. Per night RN, patient required a few hours on nonrebreather overnight with Airvo. She is on Cordarone 200 p.o. twice daily, Lopressor 25 mg p.o. twice daily, Solumedrol 40mg IV every 8 hours and Lasix 20mg IV every 8 hours. Currently on vital AF at a rate of 45 for enteral feeding. WBC 28.9, hemoglobin 10.7, platelet count 637,000, sodium 134, potassium 4.9, chloride 93, bicarb 38, BUN 30, creatinine 0.47, glucose 165, calcium 8.8. Chest x-ray shows persistent diffuse left lung multifocal right lung acute infiltrates and/or edema with worsening findings on the right upper to midlung. 08/27/2024 patient seen and examined at bedside. Patient still in the ICU. Currently on Airvo 56L on 49% and comfortable. No acute events overnight. She is on Cordarone 200 p.o. twice daily, Lopressor 25 mg p.o. twice daily, Solumedrol 40mg IV every 8 hours and Lasix 20mg IV every 8 hours. Currently on vital AF at a rate of 45 for enteral feeding. Labs today show WBC 13.9 hemoglobin 10.2, platelet count 5 97,000, sodium 135, potassium 4.7, bicarb 38, BUN 31, creatinine 0.41, glucose 174, calcium 9. Chest x-ray today showed diffuse left lung and multifocal right lung acute infiltrates and/or edema with some improvement in the left upper lung. Review of Systems: Pertinent positives and negatives mentioned above. Other systems have been negative. Physical Exam: GENERAL EXAM: 63-year-old female on Airvo, not in distress HEAD: Normocephalic and atraumatic EYES: PERRLA, EOMI, nonicteric no neck masses no JVD no stridor NOSE: Clear with pink turbinates. THROAT: Surgical scars noted in the neck area CHEST: No chest wall deformity. LUNGS: Diffuse expiratory wheezing and stridor in bilateral lung miller, no use of accessory muscles CVS: Regular rate and rhythm, no S3 gallop, no murmur Abdomen: Evidence of gastrostomy and jejunostomy tubes noted otherwise unremarkable SKIN: No rashes CENTRAL NERVOUS SYSTEM: Patient is awake, oriented x 3 no gross focal deficit except generally weak EXTREMITIES: There is no peripheral edema, clubbing, or cyanosis. Peripheral pulses are intact. Impression: -Active: Acute hypoxic respiratory failure secondary to aspiration pneumonia. Sputum positive for MRSA and positive for Morganella morganii as well as Rosa. Patient has been on prolonged antibiotics and antifungal. Extubated on 08/21/2024. Vancomycin, cefepime, and Eraxis discontinued on 08/25. 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 daily Continue amiodarone 200 mg p.o. twice daily Continue Lopressor 25 mg p.o. twice daily Continue Duoneb four times daily Continue nutritional support and enteral feeding to goal rate Patient may need physical therapy and eventually will require rehab GI prophylaxis: Protonix 40mg IV daily DVT prophylaxis: Eliquis 5mg twice daily Prognosis: pending clinical course. Will continue to follow Objective - Vital Signs Vital signs: Vital Signs Temp 97.5 F L 08/27/24 04:00 Pulse 68 08/27/24 07:00 Resp 13 08/27/24 07:00 BP 152/80 08/26/24 09:00 Pulse Ox 94 L 08/27/24 07:00 FiO2 50 08/27/24 05:32 Intake & Output 08/26/24 08/27/24 08/27/24 18:59 06:59 18:59 Intake Total 1064 748 68 Output Total 810 550 60 Balance 254 198 8 Weight 53.2 kg Intake: IV 299 253 23 0.9 NS 260 220 20 A Line 39 33 3 Oral 90 Tube Feeding 585 495 45 Other 90 Output: Urine 810 [id number] 60 Other: Voiding Method Indwelling Catheter Indwelling Catheter ABP, PAP, CO, CI - Last Documented Arterial Blood Pressure 126/50 - Labs CBC & Chem 7: 08/27/24 03:20 08/27/24 03:20 Labs: Abnormal Lab Results - Last 24 Hours (Table) 08/26/24 08/26/24 08/26/24 Range/Units 06:00 06:00 12:06 WBC (3.8-10.6) k/uL RBC (3.80-5.40) m/uL Hgb (11.4-16.0) gm/dL Hct (34.0-46.0) % MCHC (31.0-37.0) g/dL Plt Count (150-450) k/uL Neutrophils # 27.7 H (1.3-7.7) k/uL Neutrophils # (Manual) (1.3-7.7) k/uL Lymphocytes # 0.6 L (1.0-4.8) k/uL Lymphocytes # (Manual) (1.0-4.8) k/uL Sodium 134 L (137-145) mmol/L Chloride 93 L (98-107) mmol/L Carbon Dioxide 38 H (22-30) mmol/L BUN 30 H (7-17) mg/dL Creatinine 0.47 L (0.52-1.04) mg/dL Glucose 165 H (74-99) mg/dL POC Glucose (mg/dL) 146 H (70-110) mg/dL 08/26/24 08/26/24 08/27/24 Range/Units 17:25 23:33 03:20 WBC 30.9 H (3.8-10.6) k/uL RBC 3.61 L (3.80-5.40) m/uL Hgb 10.2 L (11.4-16.0) gm/dL Hct 33.6 L (34.0-46.0) % MCHC 30.2 L (31.0-37.0) g/dL Plt Count 597 H (150-450) k/uL Neutrophils # (1.3-7.7) k/uL Neutrophils # (Manual) 30.28 H (1.3-7.7) k/uL Lymphocytes # (1.0-4.8) k/uL Lymphocytes # (Manual) 0.62 L (1.0-4.8) k/uL Sodium (137-145) mmol/L Chloride (98-107) mmol/L Carbon Dioxide (22-30) mmol/L BUN (7-17) mg/dL Creatinine (0.52-1.04) mg/dL Glucose (74-99) mg/dL POC Glucose (mg/dL) 174 H 175 H (70-110) mg/dL 08/27/24 08/27/24 Range/Units 03:20 05:33 WBC (3.8-10.6) k/uL RBC (3.80-5.40) m/uL Hgb (11.4-16.0) gm/dL Hct (34.0-46.0) % MCHC (31.0-37.0) g/dL Plt Count (150-450) k/uL Neutrophils # (1.3-7.7) k/uL Neutrophils # (Manual) (1.3-7.7) k/uL Lymphocytes # (1.0-4.8) k/uL Lymphocytes # (Manual) (1.0-4.8) k/uL Sodium 135 L (137-145) mmol/L Chloride 95 L (98-107) mmol/L Carbon Dioxide 38 H (22-30) mmol/L BUN 31 H (7-17) mg/dL Creatinine 0.41 L (0.52-1.04) mg/dL Glucose 174 H (74-99) mg/dL POC Glucose (mg/dL) 176 H (70-110) mg/dL
[2024-08-27 12:28] LABS: Glucose,Whole Blood 151 mg/dL (70-110)
[2024-08-27 17:46] LABS: Glucose,Whole Blood 189 mg/dL (70-110)
--- NOTE | 2024-08-27 20:59 | PN ---
PROGRESS NOTE DATE OF SERVICE: 08/27/2024 SUBJECTIVE: This is a 64-year-old woman, who was admitted with COPD, aspiration pneumonia, still on Airvo. The most recent chest x-ray was reviewed personally by me, showed bilateral lesions, left more than the right. The patient has 50% oxygen. The white count is elevated at 30.9. Cultures showed multiple organisms. PAST MEDICAL HISTORY: Reviewed. REVIEW OF SYSTEMS: A 14-point review of systems is negative except as mentioned earlier. CURRENT MEDICATIONS: Noted. PHYSICAL EXAMINATION: VITAL SIGNS: Pulse is 64, blood pressure 148/68, pulse ox 92% on 50% FiO2 and 55% O2 flow rate. HEENT: Conjunctivae normal. CARDIOVASCULAR: S1, S2. RESPIRATIONS: A few scattered rhonchi. ABDOMEN: Soft. NERVOUS SYSTEM: Nonfocal. LABORATORY DATA: Reviewed. ASSESSMENT: 1. Bilateral aspiration pneumonia with possible MRSA, Morganella and with possible sepsis. 2. Rosa albicans, strep group A from the sputum. 3. Acute hypoxic respiratory failure. 4. Protein calorie malnutrition, mild. 5. PEG tube. 6. Chronic obstructive pulmonary disease acute exacerbation. 7. History of seizures. 8. Elevated WBC with leukemoid reaction. RECOMMENDATIONS AND DISCUSSION: I recommend to continue current medications and continue symptomatic treatment. Otherwise, we will continue to monitor and also see orders. Further recommendations to follow. MMODL / IJN: [id number] /
--- NOTE | 2024-08-27 21:47 | PN ---
PROGRESS NOTE SUBJECTIVE: Jessica is a 64-year-old lady with pneumonia and respiratory failure, has head and neck cancer and underwent surgery for the same. From cardiac standpoint, she appears stable. Remains in sinus rhythm, on amiodarone 200 b.i.d., and Eliquis 5 b.i.d. along with Lopressor and Lasix. OBJECTIVE: VITAL SIGNS: Heart rate is 63 beats per minute, blood pressure is 129/55, respiratory rate is 18. CHEST: Reveals diminished air entry at the bases. HEART: Reveals first and second heart sounds. No gallop. EXTREMITIES: Did not reveal any edema. LABORATORY DATA: Labs show that the white cell count is 30. ASSESSMENT: Paroxysmal atrial fibrillation. PLAN: The patient will continue current medications including amiodarone and Eliquis. MMODL / IJN: [id number] /
[2024-08-27 23:57] LABS: Glucose,Whole Blood 166 mg/dL (70-110)
[2024-08-28 03:23] LABS: ALT 68 U/L (4-34); AST 22 U/L (14-36); African American GFR (CKD) >90 (>60 ml/min/1.73 sqM); Albumin 2.7 g/dL (3.5-5.0); Alkaline Phosphatase 99 U/L (38-126); Anion Gap 3 mmol/L; Blood Urea Nitrogen 25 mg/dL (7-17); Calcium 9.1 mg/dL (8.4-10.2); Carbon Dioxide 36 mmol/L (22-30); Chloride 95 mmol/L (98-107); Glucose 162 mg/dL (74-99); Non-African American GFR(CKD) >90 (>60 ml/min/1.73 sqM); Sodium 134 mmol/L (137-145); Total Bilirubin 0.3 mg/dL (0.2-1.3); Total Protein 5.3 g/dL (6.3-8.2)
[2024-08-28 03:41] LABS: Basophils % (A) 0 %; Eosinophils % (A) 0 %; HGB 10.7 gm/dL (11.4-16.0); Hypochromasia Marked; Lymphocytes # (A) 0.7 k/uL (1.0-4.8); Lymphocytes % (A) 3 %; MCH 28.4 pg (25.0-35.0); MCHC 30.5 g/dL (31.0-37.0); MCV 93.4 fL (80.0-100.0); Monocytes # (A) 0.5 k/uL (0-1.0); Monocytes % (A) 2 %; Neutrophils # (A) 23.6 k/uL (1.3-7.7); Neutrophils % (A) 95 %; Platelet Count 550 k/uL (150-450); RBC 3.75 m/uL (3.80-5.40); RDW 15.2 % (11.5-15.5); WBC 24.9 k/uL (3.8-10.6)
[2024-08-28 06:22] LABS: Glucose,Whole Blood 161 mg/dL (70-110)
--- NOTE | 2024-08-28 07:02 | XR ---
EXAMINATION TYPE: XR chest 1V portable DATE OF EXAM: 08/28/2024 CLINICAL HISTORY: Multifocal infiltrates progress study. TECHNIQUE: Single AP portable upright view of the chest is obtained. COMPARISON: Chest x-ray from one day earlier and older studies. FINDINGS: Persistent diffuse left lung and multifocal right lung increased opacities are redemonstra martha. Stable mild cardiomegaly and small left greater then right pleural effusions. A staple projects over the trachea similar to priors. IMPRESSION: Persistent diffuse left lung and multifocal right lung acute infiltrates and/or edema. [facility], , 08/28/2024 6:59 AM
--- NOTE | 2024-08-28 08:35 | PN ---
PROGRESS NOTE SUBJECTIVE: 64-year-old lady with pneumonia and respiratory failure, status post surgery for head and neck cancer that we are following because of atrial fibrillation. She remains in sinus rhythm on amiodarone 200 b.i.d. and Eliquis 5 b.i.d. along with Lopressor. OBJECTIVE: VITAL SIGNS: Heart rate is 65 beats per minute, blood pressure is 130/50, respiratory rate 18. CHEST: Reveals diminished air entry at the bases. HEART: Reveals first and second heart sounds. No gallop. ABDOMEN: Soft. EXTREMITIES: Did not reveal any edema. LABORATORY DATA: From this morning show a hemoglobin of 10.7, potassium is 5, creatinine is 0.4. ASSESSMENT AND PLAN: Paroxysmal atrial fibrillation. The patient remains in sinus rhythm. Continue current medications. MMODL / IJN: [id number] /
[2024-08-28] MEDS: FUROSEMIDE 10 MG TAB PO SCH (09:25)
--- NOTE | 2024-08-28 10:08 | P.PN ---
Subjective Progress Note Date: 08/28/24 08/11/2023, the patient is being seen for a follow-up. Is a 63-year-old female patient with past medical history of oral cancer and previous radical neck dissection followed by radiation therapy and reconstructive surgery and the patient suffers from chronic dysphagia and the patient has PEG tube. 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 She has history of atrial fibrillation, hypothyroidism and seizure disorders. For now, the patient is in the intensive care unit for an acute hypoxic respiratory failure. The patient is currently on Airvo at 60 L with an FiO2 of 90% %. Chest x-ray shows bilateral lower lobe consolidation and possibly some small effusions. Antibiotic coverage is with IV Eraxis, vancomycin and Rocephin. Sputum samples collected on 08/06/2024 was consistent with MRSA, Morganella morganii and strep agalactiae. The patient had developed significant leukocytosis which is downtrending and the white cell count from yesterday was down to 16. Patient also developed atrial fibrillation with rapid ventricular response over the past 24 to 48 hours. The patient based on that was started on Cardizem drip and she is already anticoagulated with Eliquis. She remains on Cardizem at 10 mg an hour. She is also on metoprolol 25 mg p.o. twice daily for rate control. The patient is also on oxygen and Airvo settings this morning is 6 L with an FiO2 of 90%. The patient has a J-tube for feeding receiving Jevity 1.5 at the rate of 40 cc an hour. The J-tube was replaced yesterday. This was done by general surgery. CAT scan of the abdomen done on 08/09/2024 showed that the jejunostomy tube was grossly intact. Nevertheless, it there was evidence of lower lobe consolidations bilaterally worse on the left. 08/12/2023, the patient is being seen for a follow-up. Condition is gradually compensated over the past 24 hours and the patient has become more hypoxic related to her pneumonia. Noted the patient was on high flow oxygen, Airvo 60 L with an FiO2 of 90%. Subsequently, she was given 100% nonrebreather facemask and the patient continued to have episodes of desaturation. At a later stage, overnight, the patient was placed on a BiPAP and currently she is on a BiPAP pressure of 15 over 10 cm of water with an FiO2 of 100%. Initially, this morning, she was still desaturating and her blood gas was obtained which showed a pH of 7.33 with a pCO2 of 74 and pO2 of 49. I attended on this patient immediately. I wanted to intubate the patient. However, I do acknowledge that this is going to be an extremely difficult intubation as the patient does not have any ability to open up her mouth due to chronic scarring in her neck muscles and scarring of her jaw and her neck is significantly scarred up and stiff related to previous radiation therapy. While adjusting the BiPAP mask, we improved the leaks and the pulse ox improved currently she is pulse oxing in order of 91 to 93%. Reviewed the chest x-ray from today shows diffuse bilateral airspace disease consistent with pneumonia. No evidence of any pneumothorax. The patient continues to have a congested cough. No significant sputum production. Despite his ongoing hypoxemia, she is breathing comfortably. Her current respiratory rate is in the mid 20s. She is still awake and communicating. No fever. No hemodynamic instability. She remains in atrial fibrillation. Antibiotic coverage remains unchanged and the patient remains on a combination of Rocephin and vancomycin and Eraxis. The fluid balance has been negative over the past 24 hours. The white cell count is at 18.10.8 and this is. Calcium level 6. The patient remains on DuoNeb nebulized treatments. In terms of her ongoing atrial fibrillation, she is on Cardizem drip at 15 mg an hour. She remains on anticoagulation with Eliquis. She is also on metoprololAt a dose of 25 mg p.o. twice a day. No hypotension. Hemodynamically stable. IV fluids are currently at KVO. On 08/13/2024, the patient is being seen for a follow-up. As mentioned, the patient was intubated yesterday and placed on mechanical ventilation due to bilateral pneumonia that was further complicated by an episode of aspiration. This morning, the patient is sedated and the patient is calm and comfortable. She is on assist-control mode of mechanical ventilation. He is on a rate of 16 with a tidal volume of 350 and FiO2 of 50% with a PEEP of 8. The blood gas showed a pH of 7.45 with a pCO2 of 54 and pO2 of 91. Chest x-ray is consistent with diffuse bilateral pulmonary filtrates/pneumonia. Bronchoscopy was also done and another bronchial aspirate was obtained, pending further cultures. She is calm and comfortable on propofol running at 35 mcg/kg/min. Noted post intubation, the patient became hypotensive. Received a liter bolus and currently she is on normal saline at rate of 100 cc an hour. Norepinephrine is running at 0.15 mcg/kg/min. She remains in atrial fibrillation. She is on amiodarone drip at 0.5 mg/min and she is also on Cardizem drip. Slightly tachycardic. Remains on Rocephin and vancomycin and Rocephin will be switched to Zosyn. Lasix will also to be discontinued. Enteral feeding is to be started today. The white cell count of 21 with a hemoglobin 10.3 and a platelet count of 427. Sodium is at 138, BUN 13 creatinine 0.4 and a potassium level is at 3.2 with a bicarb level of 37 On 08/14/2024, the patient is being seen for a follow-up. The patient remains intubated on the mechanical ventilator. Earlier this morning, the patient is on a 30 mcg of propofol and the patient is adequately sedated. She remains on the mechanical ventilator assist-control mode with rate of 16, tidal volume of 350, FiO2 of 50% with a PEEP of 8. Blood gases show a pH of 7.41 with a pCO2 of 51 and pO2 of 82. No significant respiratory secretions. The sputum cultures and the bronchial aspirate this was collected and sent for culture showed presumptive Staph aureus and gram-negative bacillus and the patient remains on broad-spectrum antibiotics and the patient remains on a combination of Zosyn and vancomycin. Chest x-ray findings are essentially unchanged and the patient has diffuse bilateral patchy pulmonary infiltrates consistent with pneumonia. Meanwhile, the patient is on normal saline at rate of 100 cc an hour. Hemodynamically, she still requiring pressors and the patient is on norepinephrine at 0.06 mcg/kg/min. Earlier this morning, the patient was still tachycardic while being in atrial fibrillation. She was started on Cardizem drip at 5 mg an hour by cardiology. She remains on amiodarone 0.5 mg/min. The patient was also given metoprolol 25 mg p.o. twice daily and the patient remains on anticoagulation with Eliquis. She is receiving enteral feeding for nutritional support with vital high-protein at rate of 10 cc an hour. The white cell count is 14.3 with hemoglobin 9.5 and a platelet count of 375. Sodium is at 137, potassium is at 3.6, BUN is 8. The patient with a creatinine of 0.4 On 08/15/2024, the patient is being seen for a follow-up. On today's evaluation, the patient extremity, comfortable on propofol running at 30 mcg/kg/min. Chest x-ray shows stable bilateral pulmonary filtrates, essentially unchanged. The bronchial lavage that was obtained earlier was positive for MRSA and Morganella morganii and the patient remains on a combination of Zosyn and vancomycin. The patient remains on assist-control mode mechanical ventilation. The patient's current setting includes on assist-control mode with rate of 18, tidal volume of 350, FiO2 40% with a PEEP of 6. Blood gas showed a pH of 7.41 with a pCO2 of 52 and pO2 of 107 and there has been some improvement in the oxygenation. Fluid balance is +3.8 L. The patient remains on low-dose dose of norepinephrine running at 0.02 mcg/kg/min. IV fluids are in the form of normal saline at rate of 100 cc an hour and the patient's cardiac rhythm is converted into sinus. The patient is currently on oral amiodarone. The patient is also on vital high- protein at rate of 42 cc an hour and she is tolerating the enteral feeding. The white cell count of 12.7 with a hemoglobin 9.2 and a platelet count of 377. BUN is 9 with a creatinine of 0.4 and sodium levels at 138 with potassium level of 3.6. No other significant events overnight. On 08/16/2024, the patient is being seen for a follow-up. Remains sedated on propofol running at 30 mcg/kg/min. Chest x-ray still showing extensive bilateral consolidation and the previous bronchoalveolar lavage was consistent with Morganella morganii and MRSA. Remains on Zosyn and vancomycin. Remains on assist-control mode of mechanical ventilation at rate of 16, tidal volume of 350, FiO2 of 60% with a PEEP of 5. The blood gases from today shows a pH of 7.46 with a pCO2 of 53 and pO2 of 71. Fluid balance is positive around 3.8 L ov er the past 24 hours. IV fluids are currently at KVO. She remains on low-dose norepinephrine running at 0.08 mcg/kg/min. Overnight, the patient developed again atrial fibrillation with RVR. She was started on Cardizem drip at 5 mg an hour she is also back on IV amiodarone 0.5 mg/min. Vital high-protein for enteral feeding at rate of 42 cc an hour. The white cell count of 10.7 with a hemoglobin 9.2. Sodium is at 136, BUN is at 9 with a creatinine of 0.3 and a potassium level is at 3.3, needs to be replaced. No other significant events overnight. On 08/17/2024, the patient remains on the mechanical ventilator. This morning, the patient is on propofol for sedation and she is calm and comfortable. At the same time, she is on assist-control mode of mechanical ventilation at rate of 16 , tidal volume of 350, FiO2 of 50% with a PEEP of 5. Blood gas showed a pH of 7.55 with a pCO2 of 56 and pO2 of 90. Chest x-ray findings are essentially unchanged. CAT scan of the chest was obtained this morning and it shows bilateral consolidation left more than right consistent with pneumonia and there is also small to moderate-sized pleural effusion. The patient remains on a combination of cefepime and vancomycin and Eraxis. Afebrile. Hemodynamically, she remains on low-dose norepinephrine running at 0.06 mcg/kg/min. Cardiac rhythm is converted to sinus and the patient remains on Cardizem drip at 5 mg an hour and the patient is also on amiodarone drip. The patient was started on d iuretics. She is currently on a combination of Lasix and Zaroxolyn. She was receiving IV Lasix 40 mg IV every 8 hours and Zaroxolyn 5 mg p.o. twice a day. Fluid balance is -4.8 L over the past 24 hours. She remains on vital high- protein at rate of 40 cc an hour. The white cell count is 11 with a hemoglobin 9.6 and a platelet count of 383. Sodium is at 135, potassium is at 3.7, serum bicarb is at 44, BUN is 15 with a creatinine of 0.5. Calcium level is at 8.2. Patient was seen today on 08/18/24, remains in the ICU, intubated and mechanically ventilated, patient is on assist-control rate of 16 tidal volume 350 FiO2 50% PEEP of 5 ABG showed a pO2 of 98 pCO2 57 pH of 7.46 remains on norepinephrine at 0.03 mcg/kg/min propofol at 30 mcg/kg/min amiodarone 0.5 mg/min patient remains on cefepime and vancomycin she is also on Eraxis. Receiving nutritional support/vital HP at 42 cc/h. Patient has a right groin arterial line and triple-lumen catheter. She has a PEG and J-tube in place, p atient remains on antibiotics in the form of cefepime and vancomycin, she had positive sputum for MRSA and Morganella. Opens eyes, does not follow instructions today, patient is sedated, plan is to hold sedation and address mental status off sedation today. WBC count is 12.1 hemoglobin 9.4, Basic metabolic profile is normal bicarb is 14 renal profile is normal chest x-ray continues show bilateral bibasilar infiltrates consistent with aspiration pneumonia minimal improvement compared to baseline Patient was seen today on 08/19/2024 this note was dictated on 08/20 but is actually a note from 08/19/2024, apparently the note from 08/19 was deleted by mistake. At any rate patient was seen on 08/19, remains on mechanical ventilation, remains on assist-control rate of 16 tidal volume 350, FiO2 50% and PEEP of 5G showed a pO2 of 112 pCO2 52 pH of 7.49, patient remains on norepinephrine being titrated accordingly, remains on antibiotics including cefepime and vancomycin she is also on Eraxis. Continues to have significant airspace disease in both lungs. There is also a left upper lobe masslike consolidation in the left upper lobe, it is not clear whether this is a pneumonic process or malignancy. The plan is to address this eventually after the patient gets over this episode of respiratory failure. Patient does have positive sputum for Pseudomonas, and also positive system for Morganella morganii. Is arousable, follows very simple instructions, seems to be generally weak. WBC count 10.1 hemoglobin 8.8, electrolytes are normal BUN is 24 creatinine 0.65. Chest x-ray continues show evidence of bilateral airspace disease left more so than right Patient seen on 08/20/2024 patient remains in the ICU, intubated and mechanically ventilated, she is on assist-control rate of 16 tidal volume 350 FiO2 45% PEEP of 5 ABG showed a pO2 of 72 pCO2 48 pH of 7.51. Continues to use norepinephrine at 0.04 mcg/kg/min remains on propofol at 15 mcg/kg/min patient was transitioned from oral amiodarone to IV amiodarone at 0.5 mg/min she has vital AF at 10 cc/h surgery evaluated her gastric tube and did not feel there is any major concern but recommended trickle feeding patient remains on cefepime vancomycin and Eraxis remains on Lasix at 20 mg IV push every 8 hours patient is also on Diann penelope. Abdominal x-rays showed negative findings patient had a peak airway pressure of 26 Plateau pressure of 16 no changes again were made in her ventilator settings instructed nursing to lower down the dose the dose of norepinephrine and titrate to a mean arterial pressure of 65. Her atrial fibri llation remains poorly controlled and I believe the patient is not going to wean easily with poorly controlled atrial fibrillation. Daughter is at bedside today and she had lots of questions regarding her condition and regarding her left upper lobe masslike consolidation and I explained to her that this is to be addressed down the line once her clinical condition improves, patient is not a great candidate for bronchoscopy at this point or biopsy. Labs today were all reviewed WBC count is 11.6 hemoglobin 9.5, basic metabolic profile is relatively normal BUN is 31 creatinine 0.55 sputum cultures and abdominal wound cultures were reviewed Seen today on 08/21/2024, patient remains in the ICU, still intubated and mechanically ventilated, still on assist-control rate of 16 tidal volume 350 Fi O2 45% and PEEP of 5 ABG is marginal with a pO2 of 66 pCO2 44 pH of 7.53 her heart rate is better controlled, patient is now on amiodarone 0.5 mg/min she is also on Cardizem 7.5 mg/h norepinephrine is down to 0.03 mcg/kg/min propofol is off today she was on 20 mcg/kg/min earlier and I recommended stopping propofol, patient will be given trials of weaning she did go on pressure support of 10 with CPAP, however her tidal volumes are noted to be very low and marginal, increase the pressure support up to 12, and my plan is to keep her now at least for the time being on pressure support of 12 and CPAP. Better tidal volumes with pressure support of 12 but again not quite ready for weaning. Patient does have very shallow breathing and small tidal volumes most of the time. Remains on vancomycin and cefepime and Eraxis. ABG on pressure support of 10 look marginal, hence held back on extubation. Earlier today I recommended Lasix and she was given 40 mg IV push as well as her usual dose of Lasix which is 20 mg every 8 hours patient remains on Lasix and on Eliquis. Chest x-ray continues to show bilateral patchy opacities involving the left lung and right lower lobe, more airspace disease in the left lung and continues to have masslike consolidation in the left upper lobe apically. WBC count is 13.7 hemoglobin is 9 ABG on pressure support and CPAP seem to be similar to the ABG she had earlier today on assist-control mode of mechanical ventilation. She has relative hypoxia and slight hypercapnia. Patient remains metabolically alkalotic. Patient was evaluated today on 08/22/2024, patient was extubated today, tolerated the extubation quite well, she was on 5 L/min earlier today and no major issues overnight. Patient is on 0.9 normal saline at 20 cc/h she has vital HP at 20 cc /h still on amiodarone at 0.5 mg/min. Rounded on the patient, and she was noted to be doing well, did not seem to be in any distress, however while I was on rounds, I was called back to the room because the patient has had an episode of witnessed nausea and vomiting, and believes that she may have a bit of aspiration, patient desaturated down to the 70s placed on 10 L high flow nasal cannula remained in the high 70s then I recommended that we place the patient on Airvo, this will be titrated accordingly, chest x-ray showed no major change compared to her baseline chest x-ray done earlier today. Patient did not seem to be in any distress. her O2 saturation went up to 97% after placement on Airvo labs today were reviewed WBC count is 22.1 hemoglobin 9.7 electrolytes are normal renal profile is normal except bicarb of 39 BUN is 36 creatinine 0.56 Patient was seen today on 08/23/2024, patient remains in the ICU, remains on Airvo since she had that witnessed episode of aspiration yesterday. She is on 55% FiO2 60 L flow, very comfortable not in distress, patient is back on tube feeding, however she is being fed very slowly 10 cc/h. Remains on amiodarone at 0.5 mg/min, being addressed by cardiology chest x-ray continues show bilateral airspace disease left more so than right. Patient again remains marginal at best, but now that she is off the ventilator, she seems to be doing better. Remains on antibiotics continues to have leukocytosis with WBC count of 28.1 hemoglobin 9.7 electrolytes are normal renal profile is normal procalcitonin yesterday was 0.09. Seen today on 08/24/2023, patient remains in the ICU, tolerated the extubation well for the last few days, patient is on 60 L flow and 55% FiO2, she is on vancomycin, Eraxis, cefepime, and she is also on Lasix 20 mg IV push every 8 hours in addition she is also on Eliquis. Patient is being treated for MRSA pneumonia and pseudomonal infection with positive sputum for Morganella morganii. Patient had an episode of aspiration initially when she was admitted and she had another episode while inpatient. Today patient is sitting at the bedside chair, she is back on enteral feeding up to goal, patient is comfortable, does not seem to be in any distress however, chest x-ray continues show bilateral infiltrates left more so than right, still receiving antibiotics for presumptive pneumonia and she has some component of congestive heart failure. Patient is not requiring any pressors today she is noted to have leuk ocytosis with WBC count of 27.3 hemoglobin 10.5 electrolytes are normal bicarb is 39 BUN 32 creatinine 0.62 08/25/2024 patient seen and examined at bedside. Patient still in the ICU. Currently on Airvo 60L on 90% and comfortable. Still experiences oxygen desaturations despite being on Airvo throughout the night. Patient still on vancomycin IV, Eraxis IV, cefepime IV for MRSA pneumonia and pseudomonal infection and positive sputum for Morganella Morgagnii. She is also on Solumedrol 40mg IV every 8 hours and Lasix 20mg IV every 8 hours. Currently on vital AF at a rate of 45 for enteral feeding. WBC elevated at 34.9, hemoglobin 10.8, platelet count 677,000, sodium 134, potassium 3.6, chloride 90, bicarb 38, BUN 32, creatinine 0.56, glucose 156, calcium 9. Chest x-ray today shows persistent diffuse left and multifocal right lower acute infiltrates and/or edema no significant change PEG tube is in place. 08/26/2024 patient seen and examined at bedside. Patient still in the ICU. Curr ently on Airvo 56L on 93% and comfortable. Per night RN, patient required a few hours on nonrebreather overnight with Airvo. She is on Cordarone 200 p.o. twice daily, Lopressor 25 mg p.o. twice daily, Solumedrol 40mg IV every 8 hours and Lasix 20mg IV every 8 hours. Currently on vital AF at a rate of 45 for enteral feeding. WBC 28.9, hemoglobin 10.7, platelet count 637,000, sodium 134, potassium 4.9, chloride 93, bicarb 38, BUN 30, creatinine 0.47, glucose 165, calcium 8.8. Chest x-ray shows persistent diffuse left lung multifocal right lung acute infiltrates and/or edema with worsening findings on the right upper to midlung. 08/27/2024 patient seen and examined at bedside. Patient still in the ICU. Currently on Airvo 56L on 49% and comfortable. No acute events overnight. She is on Cordarone 200 p.o. twice daily, Lopressor 25 mg p.o. twice daily, Solumedrol 40mg IV every 8 hours and Lasix 20mg IV every 8 hours. Currently on vital AF at a rate of 45 for enteral feeding. Labs today show WBC 13.9 hemoglobin 10.2, platelet count 5 97,000, sodium 135, potassium 4.7, bicarb 38, BUN 31, creatinine 0.41, glucose 174, calcium 9. Chest x-ray today showed diffuse left lung and multifocal right lung acute infiltrates and/or edema with some improvement in the left upper lung. 08/28/2024 patient seen and examined at bedside. Patient still in the ICU. No acute events overnight. Still on Airvo 50 L and 55% O2. She is on Cordarone 200 p.o. twice daily, Lopressor 25 mg p.o. twice daily, Solumedrol 40mg IV every 8 hours and Lasix 20mg IV every 8 hours. Currently on vital AF at a rate of 45 for enteral feeding. Labs today show WBC 24.91 hemoglobin 10.7 platelet count 550,000 sodium 134 and chloride 95 bicarb 36 BUN 25 creatinine 0.41 glucose 162 AST 22 ALT 68 albumin 2.7 calcium 9.1. Chest x-ray today showed persistent diffuse left lung and multifocal right lung acute infiltrates and/or edema. Review of Systems: Pertinent positives and negatives mentioned above. Other systems have been negative. Physical Exam: GENERAL EXAM: 63-year-old female on Airvo, not in distress HEAD: Normocephalic and atraumatic EYES: PERRLA, EOMI, nonicteric no neck masses no JVD no stridor NOSE: Clear with pink turbinates. THROAT: Surgical scars noted in the neck area CHEST: No chest wall deformity. LUNGS: Diffuse expiratory wheezing and stridor in worse on right lung miller, decreased breath sounds at left lower lung miller, no use of accessory muscles CVS: Regular rate and rhythm, no S3 gallop, no murmur Abdomen: Evidence of gastrostomy and jejunostomy tubes noted, no erythema or d ischarge noted SKIN: No rashes CENTRAL NERVOUS SYSTEM: Patient is awake, oriented x 3 no gross focal deficit except generally weak EXTREMITIES: There is no peripheral edema, clubbing, or cyanosis. Peripheral pulses are intact. Impression: -Active: Acute hypoxic respiratory failure secondary to aspiration pneumonia. Sputum positive for MRSA and positive for Morganella morganii as well as Rosa. Patient has been on prolonged antibiotics and antifungal. Extubated on 08/21/2024. Vancomycin, cefepime, and Eraxis discontinued on 08/25. 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 daily Continue amiodarone 200 mg p.o. twice daily Continue Lopressor 25 mg p.o. twice daily Continue Duoneb four times daily Continue nutritional support and enteral feeding to goal rate Patient may need physical therapy and eventually will require rehab GI prophylaxis: Protonix 40mg IV daily DVT prophylaxis: Eliquis 5mg twice daily Prognosis: pending clinical course. Will continue to follow. Patient can be downgraded to cardiac stepdown unit. Objective - Vital Signs Vital signs: Vital Signs Temp 97.8 F 08/28/24 04:00 Pulse 80 08/28/24 07:48 Resp 13 08/28/24 07:00 BP 152/80 08/26/24 09:00 Pulse Ox 95 08/28/24 07:00 FiO2 55 08/28/24 07:48 Intake & Output 08/27/24 08/28/24 08/28/24 18:59 06:59 18:59 Intake Total 996 696 58 Output Total 750 665 60 Balance 246 31 -2 Weight 54.6 kg Intake: IV 186 156 13 0.9 NS 150 120 10 A Line 36 36 3 Tube Feeding 540 540 45 Other 270 Output: Urine 750 665 60 Other: Voiding Method Indwelling Catheter Indwelling Catheter ABP, PAP, CO, CI - Last Documented Arterial Blood Pressure 130/53 - Labs CBC & Chem 7: 08/28/24 02:50 08/28/24 02:50 Labs: Abnormal Lab Results - Last 24 Hours (Table) 08/27/24 08/27/24 08/27/24 Range/Units 12:27 17:45 23:55 WBC (3.8-10.6) k/uL RBC (3.80-5.40) m/uL Hgb (11.4-16.0) gm/dL MCHC (31.0-37.0) g/dL Plt Count (150-450) k/uL Neutrophils # (1.3-7.7) k/uL Lymphocytes # (1.0-4.8) k/uL Sodium (137-145) mmol/L Chloride (98-107) mmol/L Carbon Dioxide (22-30) mmol/L BUN (7-17) mg/dL Creatinine (0.52-1.04) mg/dL Glucose (74-99) mg/dL POC Glucose (mg/dL) 151 H 189 H 166 H (70-110) mg/dL ALT (4-34) U/L Total Protein (6.3-8.2) g/dL Albumin (3.5-5.0) g/dL 08/28/24 08/28/24 08/28/24 Range/Units 02:50 02:50 06:21 WBC 24.9 H (3.8-10.6) k/uL RBC 3.75 L (3.80-5.40) m/uL Hgb 10.7 L (11.4-16.0) gm/dL MCHC 30.5 L (31.0-37.0) g/dL Plt Count 550 H (150-450) k/uL Neutrophils # 23.6 H (1.3-7.7) k/uL Lymphocytes # 0.7 L (1.0-4.8) k/uL Sodium 134 L (137-145) mmol/L Chloride 95 L (98-107) mmol/L Carbon Dioxide 36 H (22-30) mmol/L BUN 25 H (7-17) mg/dL Creatinine 0.41 L (0.52-1.04) mg/dL Glucose 162 H (74-99) mg/dL POC Glucose (mg/dL) 161 H (70-110) mg/dL ALT 68 H (4-34) U/L Total Protein 5.3 L (6.3-8.2) g/dL Albumin 2.7 L (3.5-5.0) g/dL
[2024-08-28 11:19] VITALS: BMI 22.0
[2024-08-28 11:38] LABS: Glucose,Whole Blood 155 mg/dL (70-110)
[2024-08-28 14:22] LABS: HIV 2 AB Non-Reactive (Non-Reactive); HIV AB P24 Non-Reactive (Non-Reactive); HIV P24 AG Non-Reactive (Non-Reactive)
[2024-08-28 18:31] LABS: Glucose,Whole Blood 164 mg/dL (70-110)
[2024-08-28 23:32] LABS: Glucose,Whole Blood 163 mg/dL (70-110)
--- NOTE | 2024-08-29 00:50 | PN ---
PROGRESS NOTE DATE OF SERVICE: 08/28/2024 SUBJECTIVE: This is a 64-year-old woman, who was admitted with COPD and aspiration pneumonia, is on high-flow nasal cannula. The patient has Airvo. The most recent chest x-ray which I reviewed personally showed bilateral lesions. The patient will be closely monitored in ICU. PAST MEDICAL HISTORY: Reviewed. REVIEW OF SYSTEMS: A 14-point review of systems is negative except as mentioned earlier. CURRENT MEDICATIONS: Reviewed. PHYSICAL EXAMINATION: VITAL SIGNS: Pulse is 62, blood pressure 129/54, respirations 16. The high-flow cannula values are same. HEENT: Conjunctivae normal. CARDIOVASCULAR: S1, S2. RESPIRATIONS: A few scattered rhonchi. ABDOMEN: Soft. NERVOUS SYSTEM: Nonfocal. LABORATORY DATA: WBC 24.9. Repeat labs are noted. Cultures noted. ASSESSMENT: 1. Bilateral aspiration pneumonia with possible methicillin-resistant Staphylococcus aureus, Morganella, and possible Rosa albicans group A strep with possible sepsis present on admission. 2. Acute hypoxic respiratory failure. 3. Protein-calorie malnutrition, mild. 4. PEG tube. 5. Chronic obstructive pulmonary disease acute exacerbation. 6. History of seizures. 7. Elevated WBC with leukemoid reaction. RECOMMENDATIONS: Recommend to continue current management and continue symptomatic treatment. Repeat labs. Closely follow with Pulmonary. Incentive spirometry. Bronchodilators. Guarded prognosis. Further recommendations to follow. MMODL / IJN: [id number] /
[2024-08-29] MEDS: amLODIPine 5 MG TAB PO STA (02:06)
[2024-08-29 05:02] LABS: HCT 34.7 % (34.0-46.0); HGB 11.1 gm/dL (11.4-16.0); Hypochromasia Moderate; MCH 29.3 pg (25.0-35.0); MCHC 32.1 g/dL (31.0-37.0); MCV 91.2 fL (80.0-100.0); Mean Platelet Volume 8.6; Platelet Count 522 k/uL (150-450); RDW 15.2 % (11.5-15.5); WBC 27.3 k/uL (3.8-10.6)
[2024-08-29 05:19] LABS: ALT 57 U/L (4-34); AST 22 U/L (14-36); African American GFR (CKD) >90 (>60 ml/min/1.73 sqM); Albumin 2.7 g/dL (3.5-5.0); Alkaline Phosphatase 98 U/L (38-126); Anion Gap 3 mmol/L; Blood Urea Nitrogen 23 mg/dL (7-17); Calcium 9.3 mg/dL (8.4-10.2); Carbon Dioxide 35 mmol/L (22-30); Chloride 95 mmol/L (98-107); Glucose 150 mg/dL (74-99); Non-African American GFR(CKD) >90 (>60 ml/min/1.73 sqM); Sodium 133 mmol/L (137-145); Total Bilirubin 0.4 mg/dL (0.2-1.3); Total Protein 5.4 g/dL (6.3-8.2)
[2024-08-29 06:24] LABS: Anisocytosis (M) Present; Band Neutrophils % 1 %; Lymphocytes # (M) 0.82 k/uL (1.0-4.8); Monocytes # (M) 1.09 k/uL (0-1.0); Neutrophils % (M) 93 %; Nucleated Red Blood Cells 0 /100 WBC (0-0); Polychromasia Present; Total Cells Counted 200
[2024-08-29] MEDS: AMIODARONE 200 MG TAB PO SCH (10:10)
--- NOTE | 2024-08-29 11:20 | P.PN ---
Subjective Progress Note Date: 08/29/24 08/11/2023, the patient is being seen for a follow-up. Is a 63-year-old female patient with past medical history of oral cancer and previous radical neck dissection followed by radiation therapy and reconstructive surgery and the patient suffers from chronic dysphagia and the patient has PEG tube. 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 She has history of atrial fibrillation, hypothyroidism and seizure disorders. For now, the patient is in the intensive care unit for an acute hypoxic respiratory failure. The patient is currently on Airvo at 60 L with an FiO2 of 90% %. Chest x-ray shows bilateral lower lobe consolidation and possibly some small effusions. Antibiotic coverage is with IV Eraxis, vancomycin and Rocephin. Sputum samples collected on 08/06/2024 was consistent with MRSA, Morganella morganii and strep agalactiae. The patient had developed significant leukocytosis which is downtrending and the white cell count from yesterday was down to 16. Patient also developed atrial fibrillation with rapid ventricular response over the past 24 to 48 hours. The patient based on that was started on Cardizem drip and she is already anticoagulated with Eliquis. She remains on Cardizem at 10 mg an hour. She is also on metoprolol 25 mg p.o. twice daily for rate control. The patient is also on oxygen and Airvo settings this morning is 6 L with an FiO2 of 90%. The patient has a J-tube for feeding receiving Jevity 1.5 at the rate of 40 cc an hour. The J-tube was replaced yesterday. This was done by general surgery. CAT scan of the abdomen done on 08/09/2024 showed that the jejunostomy tube was grossly intact. Nevertheless, it there was evidence of lower lobe consolidations bilaterally worse on the left. 08/12/2023, the patient is being seen for a follow-up. Condition is gradually compensated over the past 24 hours and the patient has become more hypoxic related to her pneumonia. Noted the patient was on high flow oxygen, Airvo 60 L with an FiO2 of 90%. Subsequently, she was given 100% nonrebreather facemask and the patient continued to have episodes of desaturation. At a later stage, overnight, the patient was placed on a BiPAP and currently she is on a BiPAP pressure of 15 over 10 cm of water with an FiO2 of 100%. Initially, this morning, she was still desaturating and her blood gas was obtained which showed a pH of 7.33 with a pCO2 of 74 and pO2 of 49. I attended on this patient immediately. I wanted to intubate the patient. However, I do acknowledge that this is going to be an extremely difficult intubation as the patient does not have any ability to open up her mouth due to chronic scarring in her neck muscles and scarring of her jaw and her neck is significantly scarred up and stiff related to previous radiation therapy. While adjusting the BiPAP mask, we improved the leaks and the pulse ox improved currently she is pulse oxing in order of 91 to 93%. Reviewed the chest x-ray from today shows diffuse bilateral airspace disease consistent with pneumonia. No evidence of any pneumothorax. The patient continues to have a congested cough. No significant sputum production. Despite his ongoing hypoxemia, she is breathing comfortably. Her current respiratory rate is in the mid 20s. She is still awake and communicating. No fever. No hemodynamic instability. She remains in atrial fibrillation. Antibiotic coverage remains unchanged and the patient remains on a combination of Rocephin and vancomycin and Eraxis. The fluid balance has been negative over the past 24 hours. The white cell count is at 18.10.8 and this is. Calcium level 6. The patient remains on DuoNeb nebulized treatments. In terms of her ongoing atrial fibrillation, she is on Cardizem drip at 15 mg an hour. She remains on anticoagulation with Eliquis. She is also on metoprololAt a dose of 25 mg p.o. twice a day. No hypotension. Hemodynamically stable. IV fluids are currently at KVO. On 08/13/2024, the patient is being seen for a follow-up. As mentioned, the patient was intubated yesterday and placed on mechanical ventilation due to bilateral pneumonia that was further complicated by an episode of aspiration. This morning, the patient is sedated and the patient is calm and comfortable. She is on assist-control mode of mechanical ventilation. He is on a rate of 16 with a tidal volume of 350 and FiO2 of 50% with a PEEP of 8. The blood gas showed a pH of 7.45 with a pCO2 of 54 and pO2 of 91. Chest x-ray is consistent with diffuse bilateral pulmonary filtrates/pneumonia. Bronchoscopy was also done and another bronchial aspirate was obtained, pending further cultures. She is calm and comfortable on propofol running at 35 mcg/kg/min. Noted post intubation, the patient became hypotensive. Received a liter bolus and currently she is on normal saline at rate of 100 cc an hour. Norepinephrine is running at 0.15 mcg/kg/min. She remains in atrial fibrillation. She is on amiodarone drip at 0.5 mg/min and she is also on Cardizem drip. Slightly tachycardic. Remains on Rocephin and vancomycin and Rocephin will be switched to Zosyn. Lasix will also to be discontinued. Enteral feeding is to be started today. The white cell count of 21 with a hemoglobin 10.3 and a platelet count of 427. Sodium is at 138, BUN 13 creatinine 0.4 and a potassium level is at 3.2 with a bicarb level of 37 On 08/14/2024, the patient is being seen for a follow-up. The patient remains intubated on the mechanical ventilator. Earlier this morning, the patient is on a 30 mcg of propofol and the patient is adequately sedated. She remains on the mechanical ventilator assist-control mode with rate of 16, tidal volume of 350, FiO2 of 50% with a PEEP of 8. Blood gases show a pH of 7.41 with a pCO2 of 51 and pO2 of 82. No significant respiratory secretions. The sputum cultures and the bronchial aspirate this was collected and sent for culture showed presumptive Staph aureus and gram-negative bacillus and the patient remains on broad-spectrum antibiotics and the patient remains on a combination of Zosyn and vancomycin. Chest x-ray findings are essentially unchanged and the patient has diffuse bilateral patchy pulmonary infiltrates consistent with pneumonia. Meanwhile, the patient is on normal saline at rate of 100 cc an hour. Hemodynamically, she still requiring pressors and the patient is on norepinephrine at 0.06 mcg/kg/min. Earlier this morning, the patient was still tachycardic while being in atrial fibrillation. She was started on Cardizem drip at 5 mg an hour by cardiology. She remains on amiodarone 0.5 mg/min. The patient was also given metoprolol 25 mg p.o. twice daily and the patient remains on anticoagulation with Eliquis. She is receiving enteral feeding for nutritional support with vital high-protein at rate of 10 cc an hour. The white cell count is 14.3 with hemoglobin 9.5 and a platelet count of 375. Sodium is at 137, potassium is at 3.6, BUN is 8. The patient with a creatinine of 0.4 On 08/15/2024, the patient is being seen for a follow-up. On today's evaluation, the patient extremity, comfortable on propofol running at 30 mcg/kg/min. Chest x-ray shows stable bilateral pulmonary filtrates, essentially unchanged. The bronchial lavage that was obtained earlier was positive for MRSA and Morganella morganii and the patient remains on a combination of Zosyn and vancomycin. The patient remains on assist-control mode mechanical ventilation. The patient's current setting includes on assist-control mode with rate of 18, tidal volume of 350, FiO2 40% with a PEEP of 6. Blood gas showed a pH of 7.41 with a pCO2 of 52 and pO2 of 107 and there has been some improvement in the oxygenation. Fluid balance is +3.8 L. The patient remains on low-dose dose of norepinephrine running at 0.02 mcg/kg/min. IV fluids are in the form of normal saline at rate of 100 cc an hour and the patient's cardiac rhythm is converted into sinus. The patient is currently on oral amiodarone. The patient is also on vital high- protein at rate of 42 cc an hour and she is tolerating the enteral feeding. The white cell count of 12.7 with a hemoglobin 9.2 and a platelet count of 377. BUN is 9 with a creatinine of 0.4 and sodium levels at 138 with potassium level of 3.6. No other significant events overnight. On 08/16/2024, the patient is being seen for a follow-up. Remains sedated on propofol running at 30 mcg/kg/min. Chest x-ray still showing extensive bilateral consolidation and the previous bronchoalveolar lavage was consistent with Morganella morganii and MRSA. Remains on Zosyn and vancomycin. Remains on assist-control mode of mechanical ventilation at rate of 16, tidal volume of 350, FiO2 of 60% with a PEEP of 5. The blood gases from today shows a pH of 7.46 with a pCO2 of 53 and pO2 of 71. Fluid balance is positive around 3.8 L ov er the past 24 hours. IV fluids are currently at KVO. She remains on low-dose norepinephrine running at 0.08 mcg/kg/min. Overnight, the patient developed again atrial fibrillation with RVR. She was started on Cardizem drip at 5 mg an hour she is also back on IV amiodarone 0.5 mg/min. Vital high-protein for enteral feeding at rate of 42 cc an hour. The white cell count of 10.7 with a hemoglobin 9.2. Sodium is at 136, BUN is at 9 with a creatinine of 0.3 and a potassium level is at 3.3, needs to be replaced. No other significant events overnight. On 08/17/2024, the patient remains on the mechanical ventilator. This morning, the patient is on propofol for sedation and she is calm and comfortable. At the same time, she is on assist-control mode of mechanical ventilation at rate of 16 , tidal volume of 350, FiO2 of 50% with a PEEP of 5. Blood gas showed a pH of 7.55 with a pCO2 of 56 and pO2 of 90. Chest x-ray findings are essentially unchanged. CAT scan of the chest was obtained this morning and it shows bilateral consolidation left more than right consistent with pneumonia and there is also small to moderate-sized pleural effusion. The patient remains on a combination of cefepime and vancomycin and Eraxis. Afebrile. Hemodynamically, she remains on low-dose norepinephrine running at 0.06 mcg/kg/min. Cardiac rhythm is converted to sinus and the patient remains on Cardizem drip at 5 mg an hour and the patient is also on amiodarone drip. The patient was started on d iuretics. She is currently on a combination of Lasix and Zaroxolyn. She was receiving IV Lasix 40 mg IV every 8 hours and Zaroxolyn 5 mg p.o. twice a day. Fluid balance is -4.8 L over the past 24 hours. She remains on vital high- protein at rate of 40 cc an hour. The white cell count is 11 with a hemoglobin 9.6 and a platelet count of 383. Sodium is at 135, potassium is at 3.7, serum bicarb is at 44, BUN is 15 with a creatinine of 0.5. Calcium level is at 8.2. Patient was seen today on 08/18/24, remains in the ICU, intubated and mechanically ventilated, patient is on assist-control rate of 16 tidal volume 350 FiO2 50% PEEP of 5 ABG showed a pO2 of 98 pCO2 57 pH of 7.46 remains on norepinephrine at 0.03 mcg/kg/min propofol at 30 mcg/kg/min amiodarone 0.5 mg/min patient remains on cefepime and vancomycin she is also on Eraxis. Receiving nutritional support/vital HP at 42 cc/h. Patient has a right groin arterial line and triple-lumen catheter. She has a PEG and J-tube in place, p atient remains on antibiotics in the form of cefepime and vancomycin, she had positive sputum for MRSA and Morganella. Opens eyes, does not follow instructions today, patient is sedated, plan is to hold sedation and address mental status off sedation today. WBC count is 12.1 hemoglobin 9.4, Basic metabolic profile is normal bicarb is 14 renal profile is normal chest x-ray continues show bilateral bibasilar infiltrates consistent with aspiration pneumonia minimal improvement compared to baseline Patient was seen today on 08/19/2024 this note was dictated on 08/20 but is actually a note from 08/19/2024, apparently the note from 08/19 was deleted by mistake. At any rate patient was seen on 08/19, remains on mechanical ventilation, remains on assist-control rate of 16 tidal volume 350, FiO2 50% and PEEP of 5G showed a pO2 of 112 pCO2 52 pH of 7.49, patient remains on norepinephrine being titrated accordingly, remains on antibiotics including cefepime and vancomycin she is also on Eraxis. Continues to have significant airspace disease in both lungs. There is also a left upper lobe masslike consolidation in the left upper lobe, it is not clear whether this is a pneumonic process or malignancy. The plan is to address this eventually after the patient gets over this episode of respiratory failure. Patient does have positive sputum for Pseudomonas, and also positive system for Morganella morganii. Is arousable, follows very simple instructions, seems to be generally weak. WBC count 10.1 hemoglobin 8.8, electrolytes are normal BUN is 24 creatinine 0.65. Chest x-ray continues show evidence of bilateral airspace disease left more so than right Patient seen on 08/20/2024 patient remains in the ICU, intubated and mechanically ventilated, she is on assist-control rate of 16 tidal volume 350 FiO2 45% PEEP of 5 ABG showed a pO2 of 72 pCO2 48 pH of 7.51. Continues to use norepinephrine at 0.04 mcg/kg/min remains on propofol at 15 mcg/kg/min patient was transitioned from oral amiodarone to IV amiodarone at 0.5 mg/min she has vital AF at 10 cc/h surgery evaluated her gastric tube and did not feel there is any major concern but recommended trickle feeding patient remains on cefepime vancomycin and Eraxis remains on Lasix at 20 mg IV push every 8 hours patient is also on Diann penelope. Abdominal x-rays showed negative findings patient had a peak airway pressure of 26 Plateau pressure of 16 no changes again were made in her ventilator settings instructed nursing to lower down the dose the dose of norepinephrine and titrate to a mean arterial pressure of 65. Her atrial fibri llation remains poorly controlled and I believe the patient is not going to wean easily with poorly controlled atrial fibrillation. Daughter is at bedside today and she had lots of questions regarding her condition and regarding her left upper lobe masslike consolidation and I explained to her that this is to be addressed down the line once her clinical condition improves, patient is not a great candidate for bronchoscopy at this point or biopsy. Labs today were all reviewed WBC count is 11.6 hemoglobin 9.5, basic metabolic profile is relatively normal BUN is 31 creatinine 0.55 sputum cultures and abdominal wound cultures were reviewed Seen today on 08/21/2024, patient remains in the ICU, still intubated and mechanically ventilated, still on assist-control rate of 16 tidal volume 350 Fi O2 45% and PEEP of 5 ABG is marginal with a pO2 of 66 pCO2 44 pH of 7.53 her heart rate is better controlled, patient is now on amiodarone 0.5 mg/min she is also on Cardizem 7.5 mg/h norepinephrine is down to 0.03 mcg/kg/min propofol is off today she was on 20 mcg/kg/min earlier and I recommended stopping propofol, patient will be given trials of weaning she did go on pressure support of 10 with CPAP, however her tidal volumes are noted to be very low and marginal, increase the pressure support up to 12, and my plan is to keep her now at least for the time being on pressure support of 12 and CPAP. Better tidal volumes with pressure support of 12 but again not quite ready for weaning. Patient does have very shallow breathing and small tidal volumes most of the time. Remains on vancomycin and cefepime and Eraxis. ABG on pressure support of 10 look marginal, hence held back on extubation. Earlier today I recommended Lasix and she was given 40 mg IV push as well as her usual dose of Lasix which is 20 mg every 8 hours patient remains on Lasix and on Eliquis. Chest x-ray continues to show bilateral patchy opacities involving the left lung and right lower lobe, more airspace disease in the left lung and continues to have masslike consolidation in the left upper lobe apically. WBC count is 13.7 hemoglobin is 9 ABG on pressure support and CPAP seem to be similar to the ABG she had earlier today on assist-control mode of mechanical ventilation. She has relative hypoxia and slight hypercapnia. Patient remains metabolically alkalotic. Patient was evaluated today on 08/22/2024, patient was extubated today, tolerated the extubation quite well, she was on 5 L/min earlier today and no major issues overnight. Patient is on 0.9 normal saline at 20 cc/h she has vital HP at 20 cc /h still on amiodarone at 0.5 mg/min. Rounded on the patient, and she was noted to be doing well, did not seem to be in any distress, however while I was on rounds, I was called back to the room because the patient has had an episode of witnessed nausea and vomiting, and believes that she may have a bit of aspiration, patient desaturated down to the 70s placed on 10 L high flow nasal cannula remained in the high 70s then I recommended that we place the patient on Airvo, this will be titrated accordingly, chest x-ray showed no major change compared to her baseline chest x-ray done earlier today. Patient did not seem to be in any distress. her O2 saturation went up to 97% after placement on Airvo labs today were reviewed WBC count is 22.1 hemoglobin 9.7 electrolytes are normal renal profile is normal except bicarb of 39 BUN is 36 creatinine 0.56 Patient was seen today on 08/23/2024, patient remains in the ICU, remains on Airvo since she had that witnessed episode of aspiration yesterday. She is on 55% FiO2 60 L flow, very comfortable not in distress, patient is back on tube feeding, however she is being fed very slowly 10 cc/h. Remains on amiodarone at 0.5 mg/min, being addressed by cardiology chest x-ray continues show bilateral airspace disease left more so than right. Patient again remains marginal at best, but now that she is off the ventilator, she seems to be doing better. Remains on antibiotics continues to have leukocytosis with WBC count of 28.1 hemoglobin 9.7 electrolytes are normal renal profile is normal procalcitonin yesterday was 0.09. Seen today on 08/24/2023, patient remains in the ICU, tolerated the extubation well for the last few days, patient is on 60 L flow and 55% FiO2, she is on vancomycin, Eraxis, cefepime, and she is also on Lasix 20 mg IV push every 8 hours in addition she is also on Eliquis. Patient is being treated for MRSA pneumonia and pseudomonal infection with positive sputum for Morganella morganii. Patient had an episode of aspiration initially when she was admitted and she had another episode while inpatient. Today patient is sitting at the bedside chair, she is back on enteral feeding up to goal, patient is comfortable, does not seem to be in any distress however, chest x-ray continues show bilateral infiltrates left more so than right, still receiving antibiotics for presumptive pneumonia and she has some component of congestive heart failure. Patient is not requiring any pressors today she is noted to have leuk ocytosis with WBC count of 27.3 hemoglobin 10.5 electrolytes are normal bicarb is 39 BUN 32 creatinine 0.62 08/25/2024 patient seen and examined at bedside. Patient still in the ICU. Currently on Airvo 60L on 90% and comfortable. Still experiences oxygen desaturations despite being on Airvo throughout the night. Patient still on vancomycin IV, Eraxis IV, cefepime IV for MRSA pneumonia and pseudomonal infection and positive sputum for Morganella Morgagnii. She is also on Solumedrol 40mg IV every 8 hours and Lasix 20mg IV every 8 hours. Currently on vital AF at a rate of 45 for enteral feeding. WBC elevated at 34.9, hemoglobin 10.8, platelet count 677,000, sodium 134, potassium 3.6, chloride 90, bicarb 38, BUN 32, creatinine 0.56, glucose 156, calcium 9. Chest x-ray today shows persistent diffuse left and multifocal right lower acute infiltrates and/or edema no significant change PEG tube is in place. 08/26/2024 patient seen and examined at bedside. Patient still in the ICU. Curr ently on Airvo 56L on 93% and comfortable. Per night RN, patient required a few hours on nonrebreather overnight with Airvo. She is on Cordarone 200 p.o. twice daily, Lopressor 25 mg p.o. twice daily, Solumedrol 40mg IV every 8 hours and Lasix 20mg IV every 8 hours. Currently on vital AF at a rate of 45 for enteral feeding. WBC 28.9, hemoglobin 10.7, platelet count 637,000, sodium 134, potassium 4.9, chloride 93, bicarb 38, BUN 30, creatinine 0.47, glucose 165, calcium 8.8. Chest x-ray shows persistent diffuse left lung multifocal right lung acute infiltrates and/or edema with worsening findings on the right upper to midlung. 08/27/2024 patient seen and examined at bedside. Patient still in the ICU. Currently on Airvo 56L on 49% and comfortable. No acute events overnight. She is on Cordarone 200 p.o. twice daily, Lopressor 25 mg p.o. twice daily, Solumedrol 40mg IV every 8 hours and Lasix 20mg IV every 8 hours. Currently on vital AF at a rate of 45 for enteral feeding. Labs today show WBC 13.9 hemoglobin 10.2, platelet count 5 97,000, sodium 135, potassium 4.7, bicarb 38, BUN 31, creatinine 0.41, glucose 174, calcium 9. Chest x-ray today showed diffuse left lung and multifocal right lung acute infiltrates and/or edema with some improvement in the left upper lung. 08/28/2024 patient seen and examined at bedside. Patient still in the ICU. No acute events overnight. Still on Airvo 50 L and 55% O2. She is on Cordarone 200 p.o. twice daily, Lopressor 25 mg p.o. twice daily, Solumedrol 40mg IV every 8 hours and Lasix 20mg IV every 8 hours. Currently on vital AF at a rate of 45 for enteral feeding. Labs today show WBC 24.91 hemoglobin 10.7 platelet count 550,000 sodium 134 and chloride 95 bicarb 36 BUN 25 creatinine 0.41 glucose 162 AST 22 ALT 68 albumin 2.7 calcium 9.1. Chest x-ray today showed persistent diffuse left lung and multifocal right lung acute infiltrates and/or edema. 08/29/2024 patient seen and examined at bedside. Patient still in the ICU. No acute events overnight. Still on Airvo 50 L and 55% O2. NS running at 10ml/hr. She is on Cordarone 200 p.o. twice daily, Lopressor 25 mg p.o. twice daily, Solumedrol 40mg IV every 8 hours and Lasix 10mg IV every 8 hours. Currently on vital AF at a rate of 45 for enteral feeding. Labs today show WBC 27.3 hemoglobin 11.1 platelet count 522,000, sodium 133, potassium 5, chloride 95, bicarb 35, BUN 23, creatinine 0.4, glucose 150, calcium 9.3, AST 84, ALT 22, alk phos 57, albumin 27. Review of Systems: Pertinent positives and negatives mentioned above. Other systems have been negative. Physical Exam: GENERAL EXAM: 63-year-old female on Airvo, not in distress HEAD: Normocephalic and atraumatic EYES: PERRLA, EOMI, nonicteric no neck masses no JVD no stridor NOSE: Clear with pink turbinates. THROAT: Surgical scars noted in the neck area CHEST: No chest wall deformity. LUNGS: Diffuse expiratory wheezing in worse on right lung miller, equal breath sounds, no use of accessory muscles CVS: Regular rate and rhythm, no S3 gallop, no murmur Abdomen: Evidence of gastrostomy and jejunostomy tubes noted, no erythema or discharge noted SKIN: No rashes CENTRAL NERVOUS SYSTEM: Patient is awake, oriented x 3 no gross focal deficit except generally weak EXTREMITIES: There is no peripheral edema, clubbing, or cyanosis. Peripheral pulses are intact. Impression: -Active: Acute hypoxic respiratory failure secondary to aspiration pneumonia. Sputum positive for MRSA and positive for Morganella morganii as well as Rosa. Patient has been on prolonged antibiotics and antifungal. Extubated on 08/21. Vancomycin, cefepime, and Eraxis discontinued on 08/25. 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 daily Continue amiodarone 200 mg p.o. twice daily Continue Lopressor 25 mg p.o. twice daily Continue Duoneb four times daily Continue nutritional support and enteral feeding to goal rate Continue daily progression of ambulation GI prophylaxis: Protonix 40mg IV daily DVT prophylaxis: Eliquis 5mg twice daily Prognosis: pending clinical course. Will continue to follow. Patient can be downgraded to cardiac stepdown unit. For LTAC on discharge. Objective - Vital Signs Vital signs: Vital Signs Temp 97.9 F 08/29/24 04:00 Pulse 63 08/29/24 08:04 Resp 13 08/29/24 06:00 BP 162/73 08/29/24 00:00 Pulse Ox 92 L 08/29/24 06:00 FiO2 55 08/29/24 07:51 Intake & Output 08/28/24 08/29/24 08/29/24 18:59 06:59 18:59 Intake Total 259 382 Output Total 925 1325 Balance -666 -943 Weight 54.6 kg 53.9 kg Intake: IV 169 52 0.9 NS 130 40 A Line 39 12 Tube Feeding 90 270 Other 60 Output: Urine 925 1325 Other: Voiding Method Indwelling Catheter Indwelling Catheter ABP, PAP, CO, CI - Last Documented Arterial Blood Pressure 117/49 - Labs CBC & Chem 7: 08/29/24 04:50 08/29/24 04:50 Labs: Abnormal Lab Results - Last 24 Hours (Table) 08/28/24 08/28/24 08/28/24 Range/Units 11:36 18:29 23:31 WBC (3.8-10.6) k/uL Hgb (11.4-16.0) gm/dL Plt Count (150-450) k/uL Neutrophils # (Manual) (1.3-7.7) k/uL Lymphocytes # (Manual) (1.0-4.8) k/uL Monocytes # (Manual) (0-1.0) k/uL Sodium (137-145) mmol/L Chloride (98-107) mmol/L Carbon Dioxide (22-30) mmol/L BUN (7-17) mg/dL Creatinine (0.52-1.04) mg/dL Glucose (74-99) mg/dL POC Glucose (mg/dL) 155 H 164 H 163 H (70-110) mg/dL ALT (4-34) U/L Total Protein (6.3-8.2) g/dL Albumin (3.5-5.0) g/dL 08/29/24 08/29/24 Range/Units 04:50 04:50 WBC 27.3 H (3.8-10.6) k/uL Hgb 11.1 L (11.4-16.0) gm/dL Plt Count 522 H (150-450) k/uL Neutrophils # (Manual) 25.60 H (1.3-7.7) k/uL Lymphocytes # (Manual) 0.82 L (1.0-4.8) k/uL Monocytes # (Manual) 1.09 H (0-1.0) k/uL Sodium 133 L (137-145) mmol/L Chloride 95 L (98-107) mmol/L Carbon Dioxide 35 H (22-30) mmol/L BUN 23 H (7-17) mg/dL Creatinine 0.40 L (0.52-1.04) mg/dL Glucose 150 H (74-99) mg/dL POC Glucose (mg/dL) (70-110) mg/dL ALT 57 H (4-34) U/L Total Protein 5.4 L (6.3-8.2) g/dL Albumin 2.7 L (3.5-5.0) g/dL
[2024-08-29 12:10] LABS: Glucose,Whole Blood 162 mg/dL (70-110)
[2024-08-29 17:48] LABS: Glucose,Whole Blood 165 mg/dL (70-110)
--- NOTE | 2024-08-29 19:27 | PN ---
PROGRESS NOTE SUBJECTIVE: Jessica is a 64-year-old lady with history of respiratory failure, head and neck cancer, status post surgery, and paroxysmal atrial fibrillation. She is on amiodarone 200 b.i.d., and Eliquis 5 b.i.d. along with Lopressor and remains in sinus rhythm. OBJECTIVE: GENERAL: Comfortable at rest. VITAL SIGNS: Stable. CHEST: Reveals good air entry bilaterally. HEART: Reveals first and second heart sounds. No gallop. EXTREMITIES: Did not reveal any edema. LABORATORY DATA: Labs show that the hemoglobin is 7.1, potassium is 5, creatinine is 0.4. ASSESSMENT: Paroxysmal atrial fibrillation. The patient is in sinus rhythm. I will decrease the dose of amiodarone to 200 mg daily. MMODL / IJN: [id number] /
--- NOTE | 2024-08-29 19:48 | PN ---
PROGRESS NOTE DATE OF SERVICE: 08/29/2024 SUBJECTIVE: This is a 64-year-old woman, who was admitted with COPD and aspiration pneumonia, is being closely monitored and is hypoxic, [facility] referral is being considered. The patient is being closely monitored. The patient is severely macerated also. PAST MEDICAL HISTORY: Reviewed. REVIEW OF SYSTEMS: A 14-point review of systems is negative except as mentioned earlier. CURRENT MEDICATIONS: Reviewed. PHYSICAL EXAMINATION: VITAL SIGNS: Pulse is 56, blood pressure 112/45, respirations 19. HEENT: Conjunctivae normal. CARDIOVASCULAR: S1, S2. RESPIRATIONS: A few scattered rhonchi and crackles. ABDOMEN: Soft. NERVOUS SYSTEM: Nonfocal. The patient is on Airvo. LABORATORY DATA: Noted. ASSESSMENT: 1. Bilateral aspiration pneumonia with possible methicillin-resistant Staphylococcus aureus, Morganella, Rosa albicans, group A strep with possible sepsis present on admission. 2. Acute hypoxic respiratory failure, on Airvo 50%. 3. Protein-calorie malnutrition, mild. 4. PEG tube. 5. Chronic obstructive pulmonary disease. 6. History of seizures. 7. Elevated WBC with possible leukemoid reaction. RECOMMENDATIONS: Recommend to continue current medications, and continue symptomatic treatment. Otherwise, at this time, I recommend repeat labs. Continue the bronchodilators, possible [facility] referral. Guarded prognosis. Further recommendations to follow. MMODL / IJN: [id number] /
[2024-08-30 01:05] LABS: Glucose,Whole Blood 179 mg/dL (70-110)
[2024-08-30 04:12] LABS: Basophils % (A) 0 %; Eosinophils % (A) 0 %; HCT 33.3 % (34.0-46.0); HGB 10.5 gm/dL (11.4-16.0); Hypochromasia Moderate; Lymphocytes # (A) 0.7 k/uL (1.0-4.8); Lymphocytes % (A) 3 %; MCH 28.8 pg (25.0-35.0); MCHC 31.5 g/dL (31.0-37.0); MCV 91.4 fL (80.0-100.0); Mean Platelet Volume 8.7; Monocytes # (A) 0.7 k/uL (0-1.0); Monocytes % (A) 3 %; Neutrophils # (A) 22.4 k/uL (1.3-7.7); Neutrophils % (A) 93 %; Platelet Count 464 k/uL (150-450); RBC 3.65 m/uL (3.80-5.40); RDW 15.3 % (11.5-15.5)
[2024-08-30 04:36] LABS: African American GFR (CKD) >90 (>60 ml/min/1.73 sqM); Anion Gap 2 mmol/L; Blood Urea Nitrogen 25 mg/dL (7-17); Carbon Dioxide 36 mmol/L (22-30); Chloride 94 mmol/L (98-107); Glucose 155 mg/dL (74-99); Non-African American GFR(CKD) >90 (>60 ml/min/1.73 sqM); Potassium 4.6 mmol/L (3.5-5.1); Sodium 132 mmol/L (137-145)
[2024-08-30 05:42] LABS: Glucose,Whole Blood 179 mg/dL (70-110)
[2024-08-30] MEDS: AMIODARONE 200 MG TAB PO SCH (09:15)
[2024-08-30] MEDS: LOSARTAN 25 MG TAB PO SCH (09:25)
--- NOTE | 2024-08-30 10:05 | P.PN ---
Subjective Progress Note Date: 08/30/24 08/11/2023, the patient is being seen for a follow-up. Is a 63-year-old female patient with past medical history of oral cancer and previous radical neck dissection followed by radiation therapy and reconstructive surgery and the patient suffers from chronic dysphagia and the patient has PEG tube. 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 She has history of atrial fibrillation, hypothyroidism and seizure disorders. For now, the patient is in the intensive care unit for an acute hypoxic respiratory failure. The patient is currently on Airvo at 60 L with an FiO2 of 90% %. Chest x-ray shows bilateral lower lobe consolidation and possibly some small effusions. Antibiotic coverage is with IV Eraxis, vancomycin and Rocephin. Sputum samples collected on 08/06/2024 was consistent with MRSA, Morganella morganii and strep agalactiae. The patient had developed significant leukocytosis which is downtrending and the white cell count from yesterday was down to 16. Patient also developed atrial fibrillation with rapid ventricular response over the past 24 to 48 hours. The patient based on that was started on Cardizem drip and she is already anticoagulated with Eliquis. She remains on Cardizem at 10 mg an hour. She is also on metoprolol 25 mg p.o. twice daily for rate control. The patient is also on oxygen and Airvo settings this morning is 6 L with an FiO2 of 90%. The patient has a J-tube for feeding receiving Jevity 1.5 at the rate of 40 cc an hour. The J-tube was replaced yesterday. This was done by general surgery. CAT scan of the abdomen done on 08/09/2024 showed that the jejunostomy tube was grossly intact. Nevertheless, it there was evidence of lower lobe consolidations bilaterally worse on the left. 08/12/2023, the patient is being seen for a follow-up. Condition is gradually compensated over the past 24 hours and the patient has become more hypoxic related to her pneumonia. Noted the patient was on high flow oxygen, Airvo 60 L with an FiO2 of 90%. Subsequently, she was given 100% nonrebreather facemask and the patient continued to have episodes of desaturation. At a later stage, overnight, the patient was placed on a BiPAP and currently she is on a BiPAP pressure of 15 over 10 cm of water with an FiO2 of 100%. Initially, this morning, she was still desaturating and her blood gas was obtained which showed a pH of 7.33 with a pCO2 of 74 and pO2 of 49. I attended on this patient immediately. I wanted to intubate the patient. However, I do acknowledge that this is going to be an extremely difficult intubation as the patient does not have any ability to open up her mouth due to chronic scarring in her neck muscles and scarring of her jaw and her neck is significantly scarred up and stiff related to previous radiation therapy. While adjusting the BiPAP mask, we improved the leaks and the pulse ox improved currently she is pulse oxing in order of 91 to 93%. Reviewed the chest x-ray from today shows diffuse bilateral airspace disease consistent with pneumonia. No evidence of any pneumothorax. The patient continues to have a congested cough. No significant sputum production. Despite his ongoing hypoxemia, she is breathing comfortably. Her current respiratory rate is in the mid 20s. She is still awake and communicating. No fever. No hemodynamic instability. She remains in atrial fibrillation. Antibiotic coverage remains unchanged and the patient remains on a combination of Rocephin and vancomycin and Eraxis. The fluid balance has been negative over the past 24 hours. The white cell count is at 18.10.8 and this is. Calcium level 6. The patient remains on DuoNeb nebulized treatments. In terms of her ongoing atrial fibrillation, she is on Cardizem drip at 15 mg an hour. She remains on anticoagulation with Eliquis. She is also on metoprololAt a dose of 25 mg p.o. twice a day. No hypotension. Hemodynamically stable. IV fluids are currently at KVO. On 08/13/2024, the patient is being seen for a follow-up. As mentioned, the patient was intubated yesterday and placed on mechanical ventilation due to bilateral pneumonia that was further complicated by an episode of aspiration. This morning, the patient is sedated and the patient is calm and comfortable. She is on assist-control mode of mechanical ventilation. He is on a rate of 16 with a tidal volume of 350 and FiO2 of 50% with a PEEP of 8. The blood gas showed a pH of 7.45 with a pCO2 of 54 and pO2 of 91. Chest x-ray is consistent with diffuse bilateral pulmonary filtrates/pneumonia. Bronchoscopy was also done and another bronchial aspirate was obtained, pending further cultures. She is calm and comfortable on propofol running at 35 mcg/kg/min. Noted post intubation, the patient became hypotensive. Received a liter bolus and currently she is on normal saline at rate of 100 cc an hour. Norepinephrine is running at 0.15 mcg/kg/min. She remains in atrial fibrillation. She is on amiodarone drip at 0.5 mg/min and she is also on Cardizem drip. Slightly tachycardic. Remains on Rocephin and vancomycin and Rocephin will be switched to Zosyn. Lasix will also to be discontinued. Enteral feeding is to be started today. The white cell count of 21 with a hemoglobin 10.3 and a platelet count of 427. Sodium is at 138, BUN 13 creatinine 0.4 and a potassium level is at 3.2 with a bicarb level of 37 On 08/14/2024, the patient is being seen for a follow-up. The patient remains intubated on the mechanical ventilator. Earlier this morning, the patient is on a 30 mcg of propofol and the patient is adequately sedated. She remains on the mechanical ventilator assist-control mode with rate of 16, tidal volume of 350, FiO2 of 50% with a PEEP of 8. Blood gases show a pH of 7.41 with a pCO2 of 51 and pO2 of 82. No significant respiratory secretions. The sputum cultures and the bronchial aspirate this was collected and sent for culture showed presumptive Staph aureus and gram-negative bacillus and the patient remains on broad-spectrum antibiotics and the patient remains on a combination of Zosyn and vancomycin. Chest x-ray findings are essentially unchanged and the patient has diffuse bilateral patchy pulmonary infiltrates consistent with pneumonia. Meanwhile, the patient is on normal saline at rate of 100 cc an hour. Hemodynamically, she still requiring pressors and the patient is on norepinephrine at 0.06 mcg/kg/min. Earlier this morning, the patient was still tachycardic while being in atrial fibrillation. She was started on Cardizem drip at 5 mg an hour by cardiology. She remains on amiodarone 0.5 mg/min. The patient was also given metoprolol 25 mg p.o. twice daily and the patient remains on anticoagulation with Eliquis. She is receiving enteral feeding for nutritional support with vital high-protein at rate of 10 cc an hour. The white cell count is 14.3 with hemoglobin 9.5 and a platelet count of 375. Sodium is at 137, potassium is at 3.6, BUN is 8. The patient with a creatinine of 0.4 On 08/15/2024, the patient is being seen for a follow-up. On today's evaluation, the patient extremity, comfortable on propofol running at 30 mcg/kg/min. Chest x-ray shows stable bilateral pulmonary filtrates, essentially unchanged. The bronchial lavage that was obtained earlier was positive for MRSA and Morganella morganii and the patient remains on a combination of Zosyn and vancomycin. The patient remains on assist-control mode mechanical ventilation. The patient's current setting includes on assist-control mode with rate of 18, tidal volume of 350, FiO2 40% with a PEEP of 6. Blood gas showed a pH of 7.41 with a pCO2 of 52 and pO2 of 107 and there has been some improvement in the oxygenation. Fluid balance is +3.8 L. The patient remains on low-dose dose of norepinephrine running at 0.02 mcg/kg/min. IV fluids are in the form of normal saline at rate of 100 cc an hour and the patient's cardiac rhythm is converted into sinus. The patient is currently on oral amiodarone. The patient is also on vital high- protein at rate of 42 cc an hour and she is tolerating the enteral feeding. The white cell count of 12.7 with a hemoglobin 9.2 and a platelet count of 377. BUN is 9 with a creatinine of 0.4 and sodium levels at 138 with potassium level of 3.6. No other significant events overnight. On 08/16/2024, the patient is being seen for a follow-up. Remains sedated on propofol running at 30 mcg/kg/min. Chest x-ray still showing extensive bilateral consolidation and the previous bronchoalveolar lavage was consistent with Morganella morganii and MRSA. Remains on Zosyn and vancomycin. Remains on assist-control mode of mechanical ventilation at rate of 16, tidal volume of 350, FiO2 of 60% with a PEEP of 5. The blood gases from today shows a pH of 7.46 with a pCO2 of 53 and pO2 of 71. Fluid balance is positive around 3.8 L ov er the past 24 hours. IV fluids are currently at KVO. She remains on low-dose norepinephrine running at 0.08 mcg/kg/min. Overnight, the patient developed again atrial fibrillation with RVR. She was started on Cardizem drip at 5 mg an hour she is also back on IV amiodarone 0.5 mg/min. Vital high-protein for enteral feeding at rate of 42 cc an hour. The white cell count of 10.7 with a hemoglobin 9.2. Sodium is at 136, BUN is at 9 with a creatinine of 0.3 and a potassium level is at 3.3, needs to be replaced. No other significant events overnight. On 08/17/2024, the patient remains on the mechanical ventilator. This morning, the patient is on propofol for sedation and she is calm and comfortable. At the same time, she is on assist-control mode of mechanical ventilation at rate of 16 , tidal volume of 350, FiO2 of 50% with a PEEP of 5. Blood gas showed a pH of 7.55 with a pCO2 of 56 and pO2 of 90. Chest x-ray findings are essentially unchanged. CAT scan of the chest was obtained this morning and it shows bilateral consolidation left more than right consistent with pneumonia and there is also small to moderate-sized pleural effusion. The patient remains on a combination of cefepime and vancomycin and Eraxis. Afebrile. Hemodynamically, she remains on low-dose norepinephrine running at 0.06 mcg/kg/min. Cardiac rhythm is converted to sinus and the patient remains on Cardizem drip at 5 mg an hour and the patient is also on amiodarone drip. The patient was started on d iuretics. She is currently on a combination of Lasix and Zaroxolyn. She was receiving IV Lasix 40 mg IV every 8 hours and Zaroxolyn 5 mg p.o. twice a day. Fluid balance is -4.8 L over the past 24 hours. She remains on vital high- protein at rate of 40 cc an hour. The white cell count is 11 with a hemoglobin 9.6 and a platelet count of 383. Sodium is at 135, potassium is at 3.7, serum bicarb is at 44, BUN is 15 with a creatinine of 0.5. Calcium level is at 8.2. Patient was seen today on 08/18/24, remains in the ICU, intubated and mechanically ventilated, patient is on assist-control rate of 16 tidal volume 350 FiO2 50% PEEP of 5 ABG showed a pO2 of 98 pCO2 57 pH of 7.46 remains on norepinephrine at 0.03 mcg/kg/min propofol at 30 mcg/kg/min amiodarone 0.5 mg/min patient remains on cefepime and vancomycin she is also on Eraxis. Receiving nutritional support/vital HP at 42 cc/h. Patient has a right groin arterial line and triple-lumen catheter. She has a PEG and J-tube in place, p atient remains on antibiotics in the form of cefepime and vancomycin, she had positive sputum for MRSA and Morganella. Opens eyes, does not follow instructions today, patient is sedated, plan is to hold sedation and address mental status off sedation today. WBC count is 12.1 hemoglobin 9.4, Basic metabolic profile is normal bicarb is 14 renal profile is normal chest x-ray continues show bilateral bibasilar infiltrates consistent with aspiration pneumonia minimal improvement compared to baseline Patient was seen today on 08/19/2024 this note was dictated on 08/20 but is actually a note from 08/19/2024, apparently the note from 08/19 was deleted by mistake. At any rate patient was seen on 08/19, remains on mechanical ventilation, remains on assist-control rate of 16 tidal volume 350, FiO2 50% and PEEP of 5G showed a pO2 of 112 pCO2 52 pH of 7.49, patient remains on norepinephrine being titrated accordingly, remains on antibiotics including cefepime and vancomycin she is also on Eraxis. Continues to have significant airspace disease in both lungs. There is also a left upper lobe masslike consolidation in the left upper lobe, it is not clear whether this is a pneumonic process or malignancy. The plan is to address this eventually after the patient gets over this episode of respiratory failure. Patient does have positive sputum for Pseudomonas, and also positive system for Morganella morganii. Is arousable, follows very simple instructions, seems to be generally weak. WBC count 10.1 hemoglobin 8.8, electrolytes are normal BUN is 24 creatinine 0.65. Chest x-ray continues show evidence of bilateral airspace disease left more so than right Patient seen on 08/20/2024 patient remains in the ICU, intubated and mechanically ventilated, she is on assist-control rate of 16 tidal volume 350 FiO2 45% PEEP of 5 ABG showed a pO2 of 72 pCO2 48 pH of 7.51. Continues to use norepinephrine at 0.04 mcg/kg/min remains on propofol at 15 mcg/kg/min patient was transitioned from oral amiodarone to IV amiodarone at 0.5 mg/min she has vital AF at 10 cc/h surgery evaluated her gastric tube and did not feel there is any major concern but recommended trickle feeding patient remains on cefepime vancomycin and Eraxis remains on Lasix at 20 mg IV push every 8 hours patient is also on Diann penelope. Abdominal x-rays showed negative findings patient had a peak airway pressure of 26 Plateau pressure of 16 no changes again were made in her ventilator settings instructed nursing to lower down the dose the dose of norepinephrine and titrate to a mean arterial pressure of 65. Her atrial fibri llation remains poorly controlled and I believe the patient is not going to wean easily with poorly controlled atrial fibrillation. Daughter is at bedside today and she had lots of questions regarding her condition and regarding her left upper lobe masslike consolidation and I explained to her that this is to be addressed down the line once her clinical condition improves, patient is not a great candidate for bronchoscopy at this point or biopsy. Labs today were all reviewed WBC count is 11.6 hemoglobin 9.5, basic metabolic profile is relatively normal BUN is 31 creatinine 0.55 sputum cultures and abdominal wound cultures were reviewed Seen today on 08/21/2024, patient remains in the ICU, still intubated and mechanically ventilated, still on assist-control rate of 16 tidal volume 350 Fi O2 45% and PEEP of 5 ABG is marginal with a pO2 of 66 pCO2 44 pH of 7.53 her heart rate is better controlled, patient is now on amiodarone 0.5 mg/min she is also on Cardizem 7.5 mg/h norepinephrine is down to 0.03 mcg/kg/min propofol is off today she was on 20 mcg/kg/min earlier and I recommended stopping propofol, patient will be given trials of weaning she did go on pressure support of 10 with CPAP, however her tidal volumes are noted to be very low and marginal, increase the pressure support up to 12, and my plan is to keep her now at least for the time being on pressure support of 12 and CPAP. Better tidal volumes with pressure support of 12 but again not quite ready for weaning. Patient does have very shallow breathing and small tidal volumes most of the time. Remains on vancomycin and cefepime and Eraxis. ABG on pressure support of 10 look marginal, hence held back on extubation. Earlier today I recommended Lasix and she was given 40 mg IV push as well as her usual dose of Lasix which is 20 mg every 8 hours patient remains on Lasix and on Eliquis. Chest x-ray continues to show bilateral patchy opacities involving the left lung and right lower lobe, more airspace disease in the left lung and continues to have masslike consolidation in the left upper lobe apically. WBC count is 13.7 hemoglobin is 9 ABG on pressure support and CPAP seem to be similar to the ABG she had earlier today on assist-control mode of mechanical ventilation. She has relative hypoxia and slight hypercapnia. Patient remains metabolically alkalotic. Patient was evaluated today on 08/22/2024, patient was extubated today, tolerated the extubation quite well, she was on 5 L/min earlier today and no major issues overnight. Patient is on 0.9 normal saline at 20 cc/h she has vital HP at 20 cc /h still on amiodarone at 0.5 mg/min. Rounded on the patient, and she was noted to be doing well, did not seem to be in any distress, however while I was on rounds, I was called back to the room because the patient has had an episode of witnessed nausea and vomiting, and believes that she may have a bit of aspiration, patient desaturated down to the 70s placed on 10 L high flow nasal cannula remained in the high 70s then I recommended that we place the patient on Airvo, this will be titrated accordingly, chest x-ray showed no major change compared to her baseline chest x-ray done earlier today. Patient did not seem to be in any distress. her O2 saturation went up to 97% after placement on Airvo labs today were reviewed WBC count is 22.1 hemoglobin 9.7 electrolytes are normal renal profile is normal except bicarb of 39 BUN is 36 creatinine 0.56 Patient was seen today on 08/23/2024, patient remains in the ICU, remains on Airvo since she had that witnessed episode of aspiration yesterday. She is on 55% FiO2 60 L flow, very comfortable not in distress, patient is back on tube feeding, however she is being fed very slowly 10 cc/h. Remains on amiodarone at 0.5 mg/min, being addressed by cardiology chest x-ray continues show bilateral airspace disease left more so than right. Patient again remains marginal at best, but now that she is off the ventilator, she seems to be doing better. Remains on antibiotics continues to have leukocytosis with WBC count of 28.1 hemoglobin 9.7 electrolytes are normal renal profile is normal procalcitonin yesterday was 0.09. Seen today on 08/24/2023, patient remains in the ICU, tolerated the extubation well for the last few days, patient is on 60 L flow and 55% FiO2, she is on vancomycin, Eraxis, cefepime, and she is also on Lasix 20 mg IV push every 8 hours in addition she is also on Eliquis. Patient is being treated for MRSA pneumonia and pseudomonal infection with positive sputum for Morganella morganii. Patient had an episode of aspiration initially when she was admitted and she had another episode while inpatient. Today patient is sitting at the bedside chair, she is back on enteral feeding up to goal, patient is comfortable, does not seem to be in any distress however, chest x-ray continues show bilateral infiltrates left more so than right, still receiving antibiotics for presumptive pneumonia and she has some component of congestive heart failure. Patient is not requiring any pressors today she is noted to have leuk ocytosis with WBC count of 27.3 hemoglobin 10.5 electrolytes are normal bicarb is 39 BUN 32 creatinine 0.62 08/25/2024 patient seen and examined at bedside. Patient still in the ICU. Currently on Airvo 60L on 90% and comfortable. Still experiences oxygen desaturations despite being on Airvo throughout the night. Patient still on vancomycin IV, Eraxis IV, cefepime IV for MRSA pneumonia and pseudomonal infection and positive sputum for Morganella Morgagnii. She is also on Solumedrol 40mg IV every 8 hours and Lasix 20mg IV every 8 hours. Currently on vital AF at a rate of 45 for enteral feeding. WBC elevated at 34.9, hemoglobin 10.8, platelet count 677,000, sodium 134, potassium 3.6, chloride 90, bicarb 38, BUN 32, creatinine 0.56, glucose 156, calcium 9. Chest x-ray today shows persistent diffuse left and multifocal right lower acute infiltrates and/or edema no significant change PEG tube is in place. 08/26/2024 patient seen and examined at bedside. Patient still in the ICU. Curr ently on Airvo 56L on 93% and comfortable. Per night RN, patient required a few hours on nonrebreather overnight with Airvo. She is on Cordarone 200 p.o. twice daily, Lopressor 25 mg p.o. twice daily, Solumedrol 40mg IV every 8 hours and Lasix 20mg IV every 8 hours. Currently on vital AF at a rate of 45 for enteral feeding. WBC 28.9, hemoglobin 10.7, platelet count 637,000, sodium 134, potassium 4.9, chloride 93, bicarb 38, BUN 30, creatinine 0.47, glucose 165, calcium 8.8. Chest x-ray shows persistent diffuse left lung multifocal right lung acute infiltrates and/or edema with worsening findings on the right upper to midlung. 08/27/2024 patient seen and examined at bedside. Patient still in the ICU. Currently on Airvo 56L on 49% and comfortable. No acute events overnight. She is on Cordarone 200 p.o. twice daily, Lopressor 25 mg p.o. twice daily, Solumedrol 40mg IV every 8 hours and Lasix 20mg IV every 8 hours. Currently on vital AF at a rate of 45 for enteral feeding. Labs today show WBC 13.9 hemoglobin 10.2, platelet count 5 97,000, sodium 135, potassium 4.7, bicarb 38, BUN 31, creatinine 0.41, glucose 174, calcium 9. Chest x-ray today showed diffuse left lung and multifocal right lung acute infiltrates and/or edema with some improvement in the left upper lung. 08/28/2024 patient seen and examined at bedside. Patient still in the ICU. No acute events overnight. Still on Airvo 50 L and 55% O2. She is on Cordarone 200 p.o. twice daily, Lopressor 25 mg p.o. twice daily, Solumedrol 40mg IV every 8 hours and Lasix 20mg IV every 8 hours. Currently on vital AF at a rate of 45 for enteral feeding. Labs today show WBC 24.91 hemoglobin 10.7 platelet count 550,000 sodium 134 and chloride 95 bicarb 36 BUN 25 creatinine 0.41 glucose 162 AST 22 ALT 68 albumin 2.7 calcium 9.1. Chest x-ray today showed persistent diffuse left lung and multifocal right lung acute infiltrates and/or edema. 08/29/2024 patient seen and examined at bedside. Patient still in the ICU. No acute events overnight. Still on Airvo 50 L and 55% O2. NS running at 10ml/hr. She is on Cordarone 200 p.o. twice daily, Lopressor 25 mg p.o. twice daily, Solumedrol 40mg IV every 8 hours and Lasix 10mg IV every 8 hours. Currently on vital AF at a rate of 45 for enteral feeding. Labs today show WBC 27.3 hemoglobin 11.1 platelet count 522,000, sodium 133, potassium 5, chloride 95, bicarb 35, BUN 23, creatinine 0.4, glucose 150, calcium 9.3, AST 84, ALT 22, alk phos 57, albumin 27. 08/30/2024 patient seen and examined at bedside. Patient still in the ICU. No acute events overnight. Still on Airvo 50 L and 50% O2. She is on Cordarone 200 p.o. daily, Lopressor 25 mg p.o. twice daily, Solumedrol 40mg IV every 8 hours and Lasix 10mg IV every 8 hours. Currently on vital AF at a rate of 45 for enteral feeding. Labs show WBC 24, hemoglobin 10.5, platelet count 464,000, sodium 132, potassium 4.6, chloride 94, bicarb 36, BUN 25, creatinine 0.42, glucose 55, calcium 9. AMARI balance negative urine output 2.2 L. 1.6 L Review of Systems: Pertinent positives and negatives mentioned above. Other systems have been negative. Physical Exam: GENERAL EXAM: 63-year-old female on Airvo, not in distress HEAD: Normocephalic and atraumatic EYES: PERRLA, EOMI, nonicteric no neck masses no JVD no stridor NOSE: Clear with pink turbinates. THROAT: Surgical scars noted in the neck area CHEST: No chest wall deformity. LUNGS: Diffuse expiratory wheezing worse on right lung miller, equal breath sounds, no use of accessory muscles CVS: Regular rate and rhythm, no S3 gallop, no murmur Abdomen: Evidence of gastrostomy and jejunostomy tubes noted, no erythema or discharge noted SKIN: No rashes CENTRAL NERVOUS SYSTEM: Patient is awake, oriented x 3 no gross focal deficit except generally weak EXTREMITIES: There is no peripheral edema, clubbing, or cyanosis. Peripheral pulses are intact. Impression: -Active: Acute hypoxic respiratory failure secondary to aspiration pneumonia. Sputum positive for MRSA and positive for Morganella morganii as well as Rosa. Patient has been on prolonged antibiotics and antifungal. Extubated on 08/21/2024. Vancomycin, cefepime, and Eraxis discontinued on 08/25. 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 daily Per cardiology, decrease amiodarone 200 mg p.o. daily Continue Lopressor 25 mg p.o. twice daily Continue Duoneb four times daily Continue nutritional support and enteral feeding to goal rate Continue daily progression of ambulation GI prophylaxis: Protonix 40mg IV daily DVT prophylaxis: Eliquis 5mg twice daily Prognosis: pending clinical course. Will continue to follow. Patient can be downgraded to cardiac stepdown unit. For LTAC on discharge. Objective - Vital Signs Vital signs: Vital Signs Temp 97.5 F L 08/30/24 08:00 Pulse 66 08/30/24 08:19 Resp 12 08/30/24 08:00 BP 170/66 08/30/24 08:00 Pulse Ox 91 L 08/30/24 08:09 FiO2 50 08/30/24 08:09 Intake & Output 08/29/24 08/30/24 08/30/24 18:59 06:59 18:59 Intake Total 1268 382 Output Total 1415 530 Balance -147 -148 Weight 50.7 kg Intake: IV 143 52 0.9 NS 110 40 A Line 33 12 Tube Feeding 495 90 Other 630 240 Output: Urine 1415 530 Other: Voiding Method Indwelling Catheter Indwelling Catheter Indwelling Catheter ABP, PAP, CO, CI - Last Documented Arterial Blood Pressure 129/56 - Labs CBC & Chem 7: 08/30/24 04:00 08/30/24 04:00 Labs: Abnormal Lab Results - Last 24 Hours (Table) 08/29/24 08/29/24 08/30/24 Range/Units 12:08 17:44 01:03 WBC (3.8-10.6) k/uL RBC (3.80-5.40) m/uL Hgb (11.4-16.0) gm/dL Hct (34.0-46.0) % Plt Count (150-450) k/uL Neutrophils # (1.3-7.7) k/uL Lymphocytes # (1.0-4.8) k/uL Sodium (137-145) mmol/L Chloride (98-107) mmol/L Carbon Dioxide (22-30) mmol/L BUN (7-17) mg/dL Creatinine (0.52-1.04) mg/dL Glucose (74-99) mg/dL POC Glucose (mg/dL) 162 H 165 H 179 H (70-110) mg/dL 08/30/24 08/30/24 08/30/24 Range/Units 04:00 04:00 05:41 WBC 24.0 H (3.8-10.6) k/uL RBC 3.65 L (3.80-5.40) m/uL Hgb 10.5 L (11.4-16.0) gm/dL Hct 33.3 L (34.0-46.0) % Plt Count 464 H (150-450) k/uL Neutrophils # 22.4 H (1.3-7.7) k/uL Lymphocytes # 0.7 L (1.0-4.8) k/uL Sodium 132 L (137-145) mmol/L Chloride 94 L (98-107) mmol/L Carbon Dioxide 36 H (22-30) mmol/L BUN 25 H (7-17) mg/dL Creatinine 0.42 L (0.52-1.04) mg/dL Glucose 155 H (74-99) mg/dL POC Glucose (mg/dL) 179 H (70-110) mg/dL
[2024-08-30 11:50] LABS: Glucose,Whole Blood 172 mg/dL (70-110)
[2024-08-30 18:11] LABS: Glucose,Whole Blood 183 mg/dL (70-110)
[2024-08-30] MEDS: methylPREDNISolone SOD SUCCI 40 MG/ML 1 ML VIAL IV SCH (20:00)
--- NOTE | 2024-08-30 21:30 | PN ---
PROGRESS NOTE SUBJECTIVE: Jessica is a 64-year-old lady with respiratory failure, status post tracheostomy whom we are following because of atrial fibrillation. She is currently on Eliquis 5 b.i.d. along with amiodarone 200 b.i.d. and Lopressor. I am going to decrease the dose of amiodarone and continue the Eliquis. PHYSICAL EXAMINATION: GENERAL: Comfortable at rest. VITAL SIGNS: Blood pressure is elevated at 170/66, respiratory rate is 18. CHEST: Reveals good air entry bilaterally. HEART: Reveals first and second heart sounds. No gallop. EXTREMITIES: Did not reveal any edema. ASSESSMENT: 1. Paroxysmal atrial fibrillation. 2. Respiratory failure. 3. Hypertension. PLAN: I will add losartan. Continue rest of her medications. MMODL / IJN: [id number] /
--- NOTE | 2024-08-30 21:41 | P.PN ---
Progress Note - Text Progress Note Date: 08/30/24 HISTORY OF PRESENT ILLNESS: Patient seen for leaking around J tube again. Balloon noted to be deflated and J tube has been pulled back. PHYSICAL EXAM: VITAL SIGNS: Reviewed. GENERAL: Intubated ABDOMEN: Soft. Nondistended. Nontender. PEG tube site and J-tube site clean dry and intact ASSESSMENT: 1. Clogged jejunostomy tube and nausea status post J-tube exchange at bedside 2. Aspiration pneumonia 3. 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 Drainage around PEG tube site PLAN: -J tube balloon inflated bedside due to leaking. Will reevaluate in AM. Darrius Wick DO [facility] [phone]
[2024-08-31 00:48] LABS: Glucose,Whole Blood 119 mg/dL (70-110)
[2024-08-31 06:02] LABS: Glucose,Whole Blood 113 mg/dL (70-110)
[2024-08-31 07:37] LABS: HCT 35.7 % (34.0-46.0); HGB 11.2 gm/dL (11.4-16.0); Hypochromasia Moderate; MCH 29.1 pg (25.0-35.0); MCHC 31.5 g/dL (31.0-37.0); MCV 92.5 fL (80.0-100.0); Platelet Count 437 k/uL (150-450); RBC 3.86 m/uL (3.80-5.40); RDW 15.4 % (11.5-15.5); WBC 31.3 k/uL (3.8-10.6)
[2024-08-31 07:55] LABS: African American GFR (CKD) >90 (>60 ml/min/1.73 sqM); Anion Gap 7 mmol/L; Blood Urea Nitrogen 26 mg/dL (7-17); Calcium 9.2 mg/dL (8.4-10.2); Carbon Dioxide 33 mmol/L (22-30); Chloride 94 mmol/L (98-107); Glucose 104 mg/dL (74-99); Non-African American GFR(CKD) >90 (>60 ml/min/1.73 sqM); Potassium 4.4 mmol/L (3.5-5.1); Sodium 134 mmol/L (137-145)
[2024-08-31 08:34] LABS: Lymphocytes # (M) 6.57 k/uL (1.0-4.8); Monocytes # (M) 0.63 k/uL (0-1.0); Neutrophils % (M) 77 %; Nucleated Red Blood Cells 0 /100 WBC (0-0); Total Cells Counted 100
[2024-08-31 08:36] LABS: Stomatocytes Present
--- NOTE | 2024-08-31 10:13 | P.PN ---
Progress Note - Text Progress Note Date: 08/31/24 HISTORY OF PRESENT ILLNESS: Patient seen and examined. No further leaking around J tube PHYSICAL EXAM: VITAL SIGNS: Reviewed. GENERAL: Intubated ABDOMEN: Soft. Nondistended. Nontender. PEG tube site and J-tube site clean dry and intact ASSESSMENT: 1. Clogged jejunostomy tube and nausea status post J-tube exchange at bedside 2. Aspiration pneumonia 3. 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 Drainage around PEG tube site PLAN: -J tube balloon inflated bedside due to leaking. No further leaking this AM -Tube Feeds as tolerated Darrius Wick DO [facility] [phone]
--- NOTE | 2024-08-31 11:01 | P.PN ---
Subjective HISTORY OF PRESENT ILLNESS: Patient examined this morning the bedside. Patient has been transferred out of the intensive care unit. Patient currently denies any chest pain or pressure. She reports mild shortness of breath. She is receiving a breathing treatment at the time of examination. Patient did have some elevated blood pressures yest erday and was started on losartan. However patient's blood pressures have been running soft overnight and this morning with a systolic between 8090. PHYSICAL EXAM: VITAL SIGNS: Reviewed. GENERAL: Well-developed in no acute distress. NECK: Supple. No JVD or thyromegaly LUNGS: Respirations even and unlabored. Lungs essentially clear to auscultation bilaterally. HEART: Regular rate and rhythm. S1 and S2 heard. EXTREMITIES: Normal range of motion. No clubbing or cyanosis. Peripheral pulses intact. Right lower extremity cold to touch, however palpable pulses. 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 Signing provider agrees with the documented findings, assessment, and plan of care documented by [employer] as a scribe. Objective - Vital Signs Vital signs: Vital Signs Temp 97.8 F 08/31/24 08:20 Pulse 74 08/31/24 08:40 Resp 17 08/31/24 08:20 BP 134/73 08/31/24 08:20 Pulse Ox 90 L 08/31/24 08:32 FiO2 50 08/31/24 08:32 Intake & Output 08/30/24 08/31/24 08/31/24 18:59 06:59 18:59 Intake Total 45 45 45 Output Total 810 1700 Balance -765 -1655 45 Intake: Tube Feeding 45 45 45 Output: Urine 810 1700 Other: Voiding Method Indwelling Catheter Indwelling Catheter Indwelling Catheter ABP, PAP, CO, CI - Last Documented Arterial Blood Pressure 129/56 - Labs CBC & Chem 7: 08/31/24 06:48 08/31/24 06:48 Labs: Abnormal Lab Results - Last 24 Hours (Table) 08/30/24 08/30/24 08/31/24 Range/Units 11:47 18:10 00:46 WBC (3.8-10.6) k/uL Hgb (11.4-16.0) gm/dL Neutrophils # (Manual) (1.3-7.7) k/uL Lymphocytes # (Manual) (1.0-4.8) k/uL Sodium (137-145) mmol/L Chloride (98-107) mmol/L Carbon Dioxide (22-30) mmol/L BUN (7-17) mg/dL Creatinine (0.52-1.04) mg/dL Glucose (74-99) mg/dL POC Glucose (mg/dL) 172 H 183 H 119 H (70-110) mg/dL 08/31/24 08/31/24 08/31/24 Range/Units 06:01 06:48 06:48 WBC 31.3 H (3.8-10.6) k/uL Hgb 11.2 L (11.4-16.0) gm/dL Neutrophils # (Manual) 24.10 H (1.3-7.7) k/uL Lymphocytes # (Manual) 6.57 H (1.0-4.8) k/uL Sodium 134 L (137-145) mmol/L Chloride 94 L (98-107) mmol/L Carbon Dioxide 33 H (22-30) mmol/L BUN 26 H (7-17) mg/dL Creatinine 0.36 L (0.52-1.04) mg/dL Glucose 104 H (74-99) mg/dL POC Glucose (mg/dL) 113 H (70-110) mg/dL
--- NOTE | 2024-08-31 11:12 | PN ---
PROGRESS NOTE DATE OF SERVICE: 08/30/2024 SUBJECTIVE: This is a 64-year-old woman, who was admitted with bilateral aspiration pneumonia with multiple organisms, is being closely monitored. The patient has Airvo, which is being titrated down. The possibility of [facility] referral is also being considered. The patient is working on incentive spirometry. Correct technique has been instructed. PAST MEDICAL HISTORY: Reviewed. REVIEW OF SYSTEMS: A 14-point review systems is negative except as mentioned earlier. CURRENT MEDICATIONS: Reviewed. PHYSICAL EXAMINATION: VITAL SIGNS: Pulse is 66, blood pressure 90/58, respirations 19. HEENT: Conjunctivae normal. NECK: No JVD. CARDIOVASCULAR: S1, S2. RESPIRATIONS: Breath sounds diminished at the bases. ABDOMEN: Soft, nontender. LEGS: No edema. NERVOUS SYSTEM: Nonfocal. LABORATORY DATA: Noted. ASSESSMENT: 1. Bilateral aspiration pneumonia with possible methicillin-resistant Staphylococcus aureus, Morganella, Rosa albicans, group A strep with possible sepsis present on admission. 2. Acute hypoxic respiratory failure, on Airvo. 3. Protein-calorie malnutrition, mild. 4. PEG tube with some leaking and J-tube. 5. Chronic obstructive pulmonary disease. 6. History of seizure disorder. 7. Elevated WBC with possible leukemoid reaction. RECOMMENDATIONS: Recommend to continue current management and continue symptomatic treatment. Otherwise, continue with bronchodilators. Titer off the Airvo. Also recommended surgical evaluation. Correct incentive spirometer technique and I would also recommend serum cortisol also. Guarded prognosis. Further recommendations to follow. MMODL / IJN: [id number] /
[2024-08-31 11:27] LABS: Glucose,Whole Blood 153 mg/dL (70-110)
--- NOTE | 2024-08-31 12:52 | P.PN ---
Subjective Progress Note Date: 08/31/24 Principal diagnosis: Pneumonia. Seen today on 08/24/2023, patient remains in the ICU, tolerated the extubation well for the last few days, patient is on 60 L flow and 55% FiO2, she is on vancomycin, Eraxis, cefepime, and she is also on Lasix 20 mg IV push every 8 hours in addition she is also on Eliquis. Patient is being treated for MRSA pneumonia and pseudomonal infection with positive sputum for Morganella morganii. Patient had an episode of aspiration initially when she was admitted and she had another episode while inpatient. Today patient is sitting at the bedside chair, she is back on enteral feeding up to goal, patient is comfortable, does not seem to be in any distress however, chest x-ray continues show bilateral infiltrates left more so than right, still receiving antibiotics for presumptive pneumonia and she has some component of congestive heart failure . Patient is not requiring any pressors today she is noted to have leukocytosis with WBC count of 27.3 hemoglobin 10.5 electrolytes are normal bicarb is 39 BUN 32 creatinine 0.62 08/25/2024 patient seen and examined at bedside. Patient still in the ICU. Currently on Airvo 60L on 90% and comfortable. Still experiences oxygen desaturations despite being on Airvo throughout the night. Patient still on vancomycin IV, Eraxis IV, cefepime IV for MRSA pneumonia and pseudomonal infection and positive sputum for Morganella Morgagnii. She is also on Solumedrol 40mg IV every 8 hours and Lasix 20mg IV every 8 hours. Currently on vital AF at a rate of 45 for enteral feeding. WBC elevated at 34.9, hemoglobin 10.8, platelet count 677,000, sodium 134, potassium 3.6, chloride 90, bicarb 38, BUN 32, creatinine 0.56, glucose 156, calcium 9. Chest x-ray today shows persistent diffuse left and multifocal right lower acute infiltrates and/or edema no significant change PEG tube is in place. 08/26/2024 patient seen and examined at bedside. Patient still in the ICU. Currently on Airvo 56L on 93% and comfortable. Per night RN, patient required a few hours on nonrebreather overnight with Airvo. She is on Cordarone 200 p.o. twice daily, Lopressor 25 mg p.o. twice daily, Solumedrol 40mg IV every 8 hours and Lasix 20mg IV every 8 hours. Currently on vital AF at a rate of 45 for enteral feeding. WBC 28.9, hemoglobin 10.7, platelet count 637,000, sodium 134, potassium 4.9, chloride 93, bicarb 38, BUN 30, creatinine 0.47, glucose 165, calcium 8.8. Chest x-ray shows persistent diffuse left lung multifocal right lung acute infiltrates and/or edema with worsening findings on the right upper to midlung. 08/27/2024 patient seen and examined at bedside. Patient still in the ICU. Currently on Airvo 56L on 49% and comfortable. No acute events overnight. She is on Cordarone 200 p.o. twice daily, Lopressor 25 mg p.o. twice daily, Solumedrol 40mg IV every 8 hours and Lasix 20mg IV every 8 hours. Currently on vital AF at a rate of 45 for enteral feeding. Labs today show WBC 13.9 hemoglobin 10.2, platelet count 5 97,000, sodium 135, potassium 4.7, bicarb 38, BUN 31, creatinine 0.41, glucose 174, calcium 9. Chest x-ray today showed diffuse left lung and multifocal right lung acute infiltrates and/or edema with some improvement in the left upper lung. 08/28/2024 patient seen and examined at bedside. Patient still in the ICU. No acute events overnight. Still on Airvo 50 L and 55% O2. She is on Cordarone 200 p.o. twice daily, Lopressor 25 mg p.o. twice daily, Solumedrol 40mg IV every 8 hours and Lasix 20mg IV every 8 hours. Currently on vital AF at a rate of 45 for enteral feeding. Labs today show WBC 24.91 hemoglobin 10.7 platelet count 550,000 sodium 134 and chloride 95 bicarb 36 BUN 25 creatinine 0.41 glucose 162 AST 22 ALT 68 albumin 2.7 calcium 9.1. Chest x-ray today showed persistent diffuse left lung and multifocal right lung acute infiltrates and/or edema. 08/29/2024 patient seen and examined at bedside. Patient still in the ICU. No acute events overnight. Still on Airvo 50 L and 55% O2. NS running at 10ml/hr. She is on Cordarone 200 p.o. twice daily, Lopressor 25 mg p.o. twice daily, Solumedrol 40mg IV every 8 hours and Lasix 10mg IV every 8 hours. Currently on vital AF at a rate of 45 for enteral feeding. Labs today show WBC 27.3 hemoglobin 11.1 platelet count 522,000, sodium 133, potassium 5, chloride 95, bicarb 35, BUN 23, creatinine 0.4, glucose 150, calcium 9.3, AST 84, ALT 22, alk phos 57, albumin 27. 08/30/2024 patient seen and examined at bedside. Patient still in the ICU. No acute events overnight. Still on Airvo 50 L and 50% O2. She is on Cordarone 200 p.o. daily, Lopressor 25 mg p.o. twice daily, Solumedrol 40mg IV every 8 hours and Lasix 10mg IV every 8 hours. Currently on vital AF at a rate of 45 for enteral feeding. Labs show WBC 24, hemoglobin 10.5, platelet count 464,000, sodium 132, potassium 4.6, chloride 94, bicarb 36, BUN 25, creatinine 0.42, glucose 55, calcium 9. AMARI balance negative urine output 2.2 L. Progress note dated August 31, 2024. This is a patient who is now been in the hospital for 25 days. She was initi ally admitted with a diagnosis of pneumonia. She remains on Airvo at 50 L/min, with an FiO2 of 50%. Her saturations are hovering right around 90 to 91%. She continues on vital AF at 45 cc an hour, which is goal. White count 31.3, hemoglobin 11.2, hematocrit 35.7, and platelet count 437,000. Sodium 134, potassium 4.4, chloride 94, CO2 33, BUN 26, creatinine 0.36. Glucose was 153. Calcium is 9.2. Objective - Vital Signs Vital signs: Vital Signs Temp 97.2 F L 08/31/24 11:00 Pulse 78 08/31/24 12:32 Resp 19 08/31/24 11:00 BP 88/57 08/31/24 11:00 Pulse Ox 90 L 08/31/24 12:22 FiO2 50 08/31/24 12:22 Intake & Output 08/30/24 08/31/24 08/31/24 18:59 06:59 18:59 Intake Total 45 45 90 Output Total 810 1700 Balance -620 -1655 90 Intake: Tube Feeding 45 45 90 Output: Urine 810 1700 Other: Voiding Method Indwelling Catheter Indwelling Catheter Indwelling Catheter ABP, PAP, CO, CI - Last Documented Arterial Blood Pressure 129/56 - Exam No acute distress, oriented 3. The patient is currently on Airvo. HEENT examination is grossly unremarkable. Mucous membranes are moist. No oral lesions. Neck supple. Full range of motion. No adenopathy thyromegaly or neck vein distention. Cardiovascular examination reveals regular rhythm rate. S1-S2 normal. No S3 or S4. No discernible murmur noted. Lungs reveal scattered rhonchi and some scattered wheezes as well. No crackles. Breath sounds equal bilaterally. Abdomen soft with evidence of both PEG and PEJ tubes Extremities are intact. No cyanosis clubbing or edema. Skin is without rash or lesion. Neurologic examination is brief but nonfocal. - Labs CBC & Chem 7: 08/31/24 06:48 08/31/24 06:48 Labs: Abnormal Lab Results - Last 24 Hours (Table) 08/30/24 08/31/24 08/31/24 Range/Units 18:10 00:46 06:01 WBC (3.8-10.6) k/uL Hgb (11.4-16.0) gm/dL Neutrophils # (Manual) (1.3-7.7) k/uL Lymphocytes # (Manual) (1.0-4.8) k/uL Sodium (137-145) mmol/L Chloride (98-107) mmol/L Carbon Dioxide (22-30) mmol/L BUN (7-17) mg/dL Creatinine (0.52-1.04) mg/dL Glucose (74-99) mg/dL POC Glucose (mg/dL) 183 H 119 H 113 H (70-110) mg/dL 08/31/24 08/31/24 08/31/24 Range/Units 06:48 06:48 11:26 WBC 31.3 H (3.8-10.6) k/uL Hgb 11.2 L (11.4-16.0) gm/dL Neutrophils # (Manual) 24.10 H (1.3-7.7) k/uL Lymphocytes # (Manual) 6.57 H (1.0-4.8) k/uL Sodium 134 L (137-145) mmol/L Chloride 94 L (98-107) mmol/L Carbon Dioxide 33 H (22-30) mmol/L BUN 26 H (7-17) mg/dL Creatinine 0.36 L (0.52-1.04) mg/dL Glucose 104 H (74-99) mg/dL POC Glucose (mg/dL) 153 H (70-110) mg/dL Assessment and Plan Assessment: Acute hypoxemic respiratory failure secondary to aspiration pneumonia, treated. Previous sputum positive for methicillin-resistant Staph aureus, Morganella, and Rosa. Previous episode of respiratory failure, status post successful extubation on August 21, 2024. Sepsis, with septic shock, resolved. Left upper lobe consolidation, improved. Chronic atrial fibrillation. 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 Chronic dysphagia, with chronic aspiration, status post PEG/PEJ tube placement. History of radiation pneumonitis. History of DVT and pulmonary embolism. History of hypothyroidism. History of seizure disorder. Plan: Plan dated August 31, 2024. The patient has shown slow improvement, over the last week or so. The patient has been weaned down to Airvo, 50 L/min, with an FiO2 of 50%. Clinically, she looks relatively stable. Antibiotics were discontinued, after a number of days. The patient has been afebrile, and clinically stable. She continues with tube feedings, with vital AF at 45 cc an hour. Saturations are typically right ar ound 90 to 92%. All labs, x-rays, medications are reviewed. We will continue to follow. Prognosis is guarded. Time with Patient: Less than 30
[2024-08-31] MEDS: FLUDROCORTISONE 0.1 MG TAB PO SCH (14:39)
[2024-08-31] MEDS: HYDROCORTISONE SUCCINATE 100 MG/2 ML VIAL IV SCH (14:39)
[2024-08-31] MEDS: SODIUM CHLORIDE 0.9% 500 ML 500 ML IV ONE (15:11)
[2024-08-31] MEDS: MIDODRINE 5 MG TAB PO SCH (17:14)
[2024-08-31 17:34] LABS: Glucose,Whole Blood 170 mg/dL (70-110)
[2024-08-31] MEDS: METOPROLOL TARTRATE 12.5 MG TAB PO SCH (20:12)
[2024-08-31 23:56] LABS: Glucose,Whole Blood 134 mg/dL (70-110)
[2024-09-01 05:54] LABS: Glucose,Whole Blood 151 mg/dL (70-110)
[2024-09-01] MEDS: PANTOPRAZOLE SODIUM 40 MG GRANULE PKT PEG/G-TUBE SCH (06:19)
--- NOTE | 2024-09-01 06:54 | PN ---
PROGRESS NOTE DATE OF SERVICE: 08/31/2024 SUBJECTIVE: This 64-year-old woman was admitted with bilateral aspiration pneumonia with multiple organisms, also had adrenal insufficiency also. The patient also had elevated WBC, possibly leukemoid reaction. Family is concerned. The patient is on high-flow oxygen at this time. Possibility of [facility] referral is also noted. The patient is on Airvo 50 L and 50% FiO2. PAST MEDICAL HISTORY: Reviewed. REVIEW OF SYSTEMS: A 14-point review of systems is negative except as mentioned earlier. CURRENT MEDICATIONS: Reviewed. PHYSICAL EXAMINATION: VITAL SIGNS: Pulse is 67, blood pressure is ntd, respirations 18. CHEST: Scattered rhonchi and crackles. ABDOMEN: Soft. NEUROLOGIC: Nonfocal. LABORATORY DATA: Reviewed. ASSESSMENT: 1. Bilateral aspiration pneumonia with possible methicillin-resistant Staphylococcus aureus, morganella, Rosa albicans, group A strep with possible sepsis present on admission. 2. Acute hypoxic respiratory failure, on Airvo 50/50. 3. Severe adrenal insufficiency. 4. Protein-calorie malnutrition, mild. 5. PEG tube with some leaking and J-tube. 6. Chronic obstructive pulmonary disease. 7. History of seizure disorder. 8. Elevated WBC with possible leukemoid reaction. RECOMMENDATIONS: I recommend to continue current management and continue symptomatic treatment. Add hydrocortisone and Florinef. Otherwise, monitor blood pressure closely. Continue with current medications. Most recent chest x-ray on 08/31 was reviewed. Guarded prognosis. Further recommendations to follow. MMODL / IJN: [id number] / MTDD
[2024-09-01] MEDS ORDERED: PANTOPRAZOLE SODIUM 40 MG GRANULE PKT PEJ/J-Tube SCH (07:30)
[2024-09-01] MEDS ORDERED: ZINC OXIDE PASTE (Z-GUARD) 1 APPLIC TOPICAL PRN (09:24)
[2024-09-01 11:14] LABS: Glucose,Whole Blood 140 mg/dL (70-110)
--- NOTE | 2024-09-01 14:59 | P.PN ---
Subjective Progress Note Date: 09/01/24 63-year-old female patient with past medical history of oral cancer and previous radical neck dissection followed by radiation therapy and reconstructive surgery and the patient suffers from chronic dysphagia and the patient has PEG tube. The patient also has previous history of DVT/pulmonary embolism maintained on anticoagulation. She has history of atrial fibrillation, hypothyroidism and seizure disorders. For now, the patient is in the intensive care unit for an acute hypoxic respiratory failure. The patient is currently on Airvo at 50 L with an FiO2 of 50%. The patient is status post ventilator dependent respiratory failure requiring intubation mechanical ventilation for extensive bilateral pneumonia And sputum cultures were positive for Pseudomonas aeruginosa and MRSA and Morganella morganii and no sputum cultures obtained on 08/17/2024. The patient has completed antibiotic course and she is currently off antibiotics. 09/01/2024, the patient is being seen in the medical floor. She is on Airvo at a flow of 50 L with FiO2 50%. Her speech was muffled and the patient had a congested cough. Careful examination of posterior pharynx revealed thick mucus obstructing the posterior pharynx and the posterior oral passages. Bedside suctioning was done and a copious amount of purulent respiratory secretions were aspirated without any major difficulties. The patient was instructed to continue her pulmonary toileting and she was offered a bedside suctioning device and a Yunker. The white cell count from yesterday was at 31 with a hemoglobin 11.2 and a platelet count of 437. Sodium is at 134, BUN is 26 with a creatinine of 0.36. Procalcitonin level was at 0.06 from 08/28/2024. The most recent chest x-ray was from 08/28/2024 showed persistent diffuse left lung and multifocal right lung pulmonary infiltrates which have gradually improved since the time of admission. The patient continues to receive enteral feeding for nutritional support. She remains on anticoagulation with Eliquis. She is on DuoNeb updrafts 4 times a day. She is on IV hydrocortisone 100 mg every 8 hours. Her serum cortisol was quite low. Rest of the medications remain unchanged. She remains on amiodarone 12 mg p.o. daily, metoprolol 12.5 mg p.o. nightly anticoagulation with Eliquis regarding paroxysmal atrial fibrillation. Objective - Vital Signs Vital signs: Vital Signs Temp 98 F 09/01/24 08:00 Pulse 80 09/01/24 09:05 Resp 16 09/01/24 08:00 BP 156/71 09/01/24 08:00 Pulse Ox 92 L 09/01/24 08:00 FiO2 50 09/01/24 08:49 Intake & Output 08/31/24 09/01/24 09/01/24 18:59 06:59 18:59 Intake Total 145 155 55 Output Total 610 752 8468 Balance -703 -145 1151 Weight 50.5 kg Intake: IV 10 20 10 Invasive Line 10 10 20 10 Tube Feeding 135 135 45 Output: Urine 817 004 6440 Stool 6 Other: Voiding Method Indwelling Catheter Indwelling Catheter Indwelling Catheter # Bowel Movements 1 ABP, PAP, CO, CI - Last Documented Arterial Blood Pressure 129/56 - Exam GENERAL EXAM: Alert, 63-year-old female, patient is currently on Airvo at 50 L and FiO2 of 50%. Check gummy secretions occupying the posterior pharynx causing mechanical obstruction. Bedside suctioning was done HEAD: Normocephalic and atraumatic EYES: Normal reaction of pupils, equal size. NOSE: Clear with pink turbinates. THROAT: No erythema or exudates. Edentulous, with previous reconstructive surgery. Unable to open her mouth as the patient has jaw dysfunction and scarring in her neck muscles. NECK: No masses, no JVD. Significant neck deformity related to radiation- induced scarring and previous neck surgery. CHEST: No chest wall deformity. LUNGS: Equal air entry with bilateral rhonchi and wheezing with left lower lobe inspiratory crackles. CVS: S1 and S2 normal with no audible murmur, irregular rhythm. No extra heart sounds ABDOMEN: No hepatosplenomegaly, active bowel sounds, no guarding or rigidity. There are two percutaneous feeding tubes. SPINE: No scoliosis or deformity SKIN: No rashes CENTRAL NERVOUS SYSTEM: Neurologically, the patient is awake and alert and the patient does not have any focal neurological deficit. Cranial nerves are essentially intact. EXTREMITIES: There is no peripheral edema, clubbing, or cyanosis. Peripheral pulses are intact. Profound generalized weakness in all 4 extremities - Labs CBC & Chem 7: 08/31/24 06:48 08/31/24 06:48 Labs: Abnormal Lab Results - Last 24 Hours (Table) 08/31/24 08/31/24 08/31/24 Range/Units 06:48 17:32 23:55 POC Glucose (mg/dL) 170 H 134 H (70-110) mg/dL Cortisol <1.5 L (3.1-22.4) UG/DL 09/01/24 09/01/24 Range/Units 05:53 11:13 POC Glucose (mg/dL) 151 H 140 H (70-110) mg/dL Cortisol (3.1-22.4) UG/DL Assessment and Plan Plan: Acute hypoxic respiratory failure secondary to bilateral pneumonia with subsequent aspiration. The patient is currently intubated on mechanical ventilator. The patient was intubated on 08/12/2024. Extubated on 08/21/2024. Cultures from 08/17/2023 were positive for MRSA, Pseudomonas aeruginosa and Morganella and the patient completed the course of antibiotics. Follow-up chest x-ray shows residual bilateral pulmonary filtration. Mucous plugs occupying the posterior oropharynx and obstructing the posterior pharyngeal passages and bedside suctioning was done Bilateral lower lobe pneumonia, polymicrobial, initially thought to be aspiration related and subsequently a hospital-acquired component as the patient also showed Pseudomonas aeruginosa in addition to Morganella and MRSA. Sepsis with secondary bilateral pneumonia, recovered Acute leukocytosis, secondary to above, procalcitonin level is not elevated Paroxysmal atrial fibrillation currently on a combination of metoprolol, amiodarone and anticoagulation with Eliquis History of recurrent aspiration pneumonia and MRSA pneumonia. 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 Nothing by mouth, the patient receiving enteral feeding for nutritional support via PEG tube. History of radiation pneumonitis Xerostomia History of DVT/PE, anticoagulated on Eliquis History of hypothyroidism History of seizure disorder Plan: Continue Airvo and gradual wean down FiO2 Excessive oral care, Peridex, and frequent suctioning Monitor the white cell count Obtain a follow-up chest x-ray in the morning Keep the patient sedated on propofol Complete the course of antibiotics Cultures from 08/17/2024 was consistent with Pseudomonas aeruginosa, Morganella morganii and MRSA Continue amiodarone and metoprolol and anticoagulation with Eliquis Continue stress dose hydrocortisone Continue bronchodilators Enteral tube feedings, the G-tube has been replaced.
[2024-09-01 16:02] LABS: % Iron Saturation 8.3 (12.00-45.00)
--- NOTE | 2024-09-01 16:02 | P.PN ---
Subjective Progress Note Date: 09/01/24 SURGICAL PROGRESS NOTE CHIEF COMPLAINT: Respiratory failure HISTORY OF PRESENT ILLNESS: Patient regular medical floor. Surgical service following in regards to leaking around the J-tube. She is receiving tube feeds and tolerating tube feeds. Surgeon inflated J-tube balloon at bedside due to leaking over the weekend. PHYSICAL EXAM: VITAL SIGNS: Reviewed. GENERAL: Intubated ABDOMEN: Soft. Nondistended. Nontender. PEG tube site clean dry and intact and mild mucus drainage around J-tube ASSESSMENT: 1. Clogged jejunostomy tube and nausea status post J-tube exchange at bedside 2. Aspiration pneumonia 3. 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 Drainage around PEG tube site has resolved PLAN: -No surgical intervention planned -Continue tube feeds -Continue to monitor J-tube drainage Physician Cathead Operator note has been reviewed by physician. Signing provider agrees with the documented findings, assessment, and plan of care. Attestation Patient seen and examined at bedside. Tolerating tube feeding. No significant leakage around feeding tube sites. Recommend nursing take proper precautions when managing tube feeds. Significant amount of time spent with patient's [id number] answering questions. Kaitlynn Sanchez, Objective - Vital Signs Vital signs: Vital Signs Temp 98 F 09/01/24 08:00 Pulse 80 09/01/24 12:29 Resp 16 09/01/24 12:00 BP 158/77 09/01/24 12:00 Pulse Ox 91 L 09/01/24 12:00 FiO2 50 09/01/24 12:20 Intake & Output 08/31/24 09/01/24 09/01/24 18:59 06:59 18:59 Intake Total 145 155 110 Output Total 215 872 8172 Balance -830 -145 -1096 Weight 50.5 kg Intake: IV 10 20 20 Invasive Line 10 10 20 20 Tube Feeding 135 135 90 Output: Urine 974 574 0661 Stool 6 Other: Voiding Method Indwelling Catheter Indwelling Catheter Indwelling Catheter # Bowel Movements 1 ABP, PAP, CO, CI - Last Documented Arterial Blood Pressure 129/56 - Labs CBC & Chem 7: 08/31/24 06:48 08/31/24 06:48 Labs: Abnormal Lab Results - Last 24 Hours (Table) 08/31/24 08/31/24 09/01/24 Range/Units 17:32 23:55 05:53 POC Glucose (mg/dL) 170 H 134 H 151 H (70-110) mg/dL 09/01/24 Range/Units 11:13 POC Glucose (mg/dL) 140 H (70-110) mg/dL
[2024-09-01 16:52] LABS: Glucose,Whole Blood 170 mg/dL (70-110)
[2024-09-01 20:10] LABS: Glucose,Whole Blood 166 mg/dL (70-110)
[2024-09-01] MEDS: CHLORHEXIDINE GLUCONATE 15 ML CUP MUCOUS MEM SCH (21:13)
--- NOTE | 2024-09-01 22:04 | P.CONS ---
History of Present Illness - Reason for Consult Consult date: 09/01/24 persistent leukocytosis Requesting physician: Amber Rocha - Chief Complaint pneumonia - History of Present Illness Pt has been inpt for 26 days, admitted for MRSA pneumonia, hemoptysis. We are being consulted for persistently elevated WBC, normal on admit now in the 30 r mirtha Pt has no Hx of the same Hx chemo/XRT in 2002 for head/neck carcinoma, no recurrence States she is feeling ok overall at this time. J tube/PEG tube adjusted, no longer leaking. Review of Systems 10 point ROS is neg except as stated in HPI 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 ( no saliva as result) WITH CHEMO & RADIATION [place] 2002,aspiration pneumonia History of Any Multi-Drug Resistant Organisms: MRSA Year Discovered:: 08/06/24 MDRO Source:: sputum, blood Past Surgical History: Adenoidectomy, Appendectomy, Bladder Surgery, Hysterectomy, Tonsillectomy, Tubal Ligation Additional Past Surgical History / Comment(s): NECK DISECTION, BLADDER SUSPENSION, HEEL SPURS, 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 Past Psychological History: No Psychological Hx Reported Smoking Status: Former smoker Past Alcohol Use History: None Reported Additional Past Alcohol Use History / Comment(s): quit smoking 1985,smoked about 7 yrs Past Drug Use History: None Reported - Past Family History Father Family Medical History: Cancer Additional Family Medical History / Comment(s): NON-HODGKINS LYMPHOMA Medications and Allergies Home Medications Medication Instructions Recorded Confirmed Type Apixaban [Eliquis] 5 mg PEG/G-TUBE BID 06/23/21 08/06/24 History Aspirin 81 mg PEG/G-TUBE DAILY 06/23/21 08/06/24 History Gabapentin Oral Soln [Neurontin 900 mg PEG/G-TUBE TID 06/23/21 08/06/24 History Oral Soln] Levothyroxine Sodium [Synthroid] 75 mcg PEG/G-TUBE HS 06/23/21 08/06/24 History Cefuroxime [Ceftin] 250 mg PEG/G-TUBE BID 08/06/24 08/06/24 History DULoxetine HCL [Cymbalta] 30 mg PEG/G-TUBE DAILY 08/06/24 08/06/24 History oxyCODONE HCL 10 - 15 mg PEG/G-TUBE Q4H 08/06/24 08/06/24 History predniSONE See Taper PEG/G-TUBE DIRECTED 08/06/24 08/06/24 History Allergies Allergy/AdvReac Type Severity Reaction Status Date / Time Sulfa (Sulfonamide Allergy Throat Verified 08/06/24 12:57 Antibiotics) itching sulfamethoxazole Allergy Throat Verified 08/06/24 12:57 [From Bactrim] itching trimethoprim [From Bactrim] Allergy Throat Verified 08/06/24 12:57 itching Physical Exam Vitals: Vital Signs Temp Pulse Pulse Resp BP BP BP 09/01/24 12:29 80 09/01/24 12:20 09/01/24 12:17 95 09/01/24 12:00 72 16 158/77 09/01/24 09:05 80 09/01/24 08:49 80 09/01/24 08:00 98 F 75 16 156/71 09/01/24 04:27 09/01/24 04:00 97.4 F L 79 18 96/65 09/01/24 01:29 90 18 08/31/24 23:51 90 18 95/63 08/31/24 23:48 08/31/24 21:05 76 08/31/24 20:54 79 08/31/24 20:00 97.3 F L 90 18 89/60 08/31/24 18:42 87/56 08/31/24 16:56 80/60 81/66 08/31/24 16:18 74 08/31/24 16:16 86/59 08/31/24 16:14 08/31/24 16:07 70 08/31/24 14:29 98.1 F 67 18 77/51 Pulse Ox FiO2 09/01/24 12:29 09/01/24 12:20 50 09/01/24 12:17 09/01/24 12:00 91 L 40 09/01/24 09:05 09/01/24 08:49 50 09/01/24 08:00 92 L 50 09/01/24 04:27 92 L 50 09/01/24 04:00 94 L 50 09/01/24 01:29 08/31/24 23:51 91 L 50 08/31/24 23:48 91 L 50 08/31/24 21:05 08/31/24 20:54 88 L 50 08/31/24 20:00 90 L 50 08/31/24 18:42 08/31/24 16:56 08/31/24 16:18 08/31/24 16:16 08/31/24 16:14 90 L 50 08/31/24 16:07 08/31/24 14:29 87 L Intake and Output 08/31/24 09/01/24 09/01/24 22:59 06:59 14:59 Intake Total 110 100 100 Output Total 090 324 1152 Balance -265 -200 -1106 Intake: IV 20 10 10 Invasive Line 10 20 10 10 Tube Feeding 90 90 90 Output: Urine 321 957 5994 Stool 6 Other: Voiding Method Indwelling Catheter Indwelling Catheter Indwelling Catheter # Bowel Movements 1 Weight 50.5 kg - Constitutional General appearance: cooperative, no acute distress, thin - EENT left jawline surgical scars, thickened skin from Hx XRT Eyes: anicteric sclerae, EOMI ENT: hard of hearing - Neck thickened skin on the left from surgery and radiation Neck: no lymphadenopathy - Respiratory Respiratory: bilateral: CTA - Cardiovascular Rhythm: regular Heart sounds: normal: S1, S2 Abnormal Heart Sounds: no systolic murmur, no diastolic murmur, no rub, no S3 Gallop, no S4 Gallop, no click, no other leg Peripheral Edema: bilateral: None - Gastrointestinal J tube and PEG tube, no unrealistic drainage seen General gastrointestinal: no absent bowel sounds, no decreased bowel sounds, no distended, no hepatomegaly, no hyperactive bowel sounds, normal bowel sounds, no organomegaly, no rigid, no scaphoid, soft, no splenomegaly, no tenderness, no umbilical hernia, no ventral hernia - Integumentary Integumentary: pale - Musculoskeletal Musculoskeletal: generalized weakness - Psychiatric Psychiatric: A&O x's 3, appropriate affect, intact judgment & insight Results CBC & Chem 7: 08/31/24 06:48 08/31/24 06:48 Labs: Abnormal Lab Results - Last 24 Hours (Table) 08/31/24 08/31/24 08/31/24 Range/Units 06:48 17:32 23:55 POC Glucose (mg/dL) 170 H 134 H (70-110) mg/dL Cortisol <1.5 L (3.1-22.4) UG/DL 09/01/24 09/01/24 Range/Units 05:53 11:13 POC Glucose (mg/dL) 151 H 140 H (70-110) mg/dL Cortisol (3.1-22.4) UG/DL CT scan - chest: report reviewed Venous US: report reviewed Assessment and Plan (1) Neutrophilic leukocytosis Current Visit: Yes Status: Acute Code(s): D72.828 - OTHER ELEVATED WHITE BLOOD CELL COUNT SNOMED Code(s): 522070890 (2) Primary carcinoma of base of tongue Current Visit: Yes Status: Acute Code(s): C01 - MALIGNANT NEOPLASM OF BASE OF TONGUE SNOMED Code(s): 3720240167 (3) Dysphagia Current Visit: Yes Status: Acute Code(s): R13.10 - DYSPHAGIA, UNSPECIFIED SNOMED Code(s): 22683417 Plan: Elevated WBC, mostly neutrophilia -No history of the same -Progressive since admit -Mostly neutrophils, monocytes slightly elevated -Suspected elevation multifactorial including infection, steroids-which she was on - , she was also having some leakage from her PEG tube-this has now been corrected -Leukocytosis work up ordered -CBC with differential daily for white blood cell monitoring History of malignancy of the base of the tongue -Treated with chemo and radiation back in 2002. No evidence of recurrence since. CT of the chest did report left upper lobe consolidation versus a mass. Recommend this be followed up once patient has been treated for MRSA pneumonia. attests: I have performed H&P, seen and examined pt, developed impression and plan of care. Discussed with dictator. Agree with documentation, dictated as a scribe.
[2024-09-02 00:11] LABS: Glucose,Whole Blood 141 mg/dL (70-110)
--- NOTE | 2024-09-02 05:34 | P.PN ---
Subjective Progress Note Date: 09/01/24 This is a pleasant 63 years old female with past medical history of multiple medical problems. Patient called her PCP office of Dr. Lawton and talked to his nurse practitioner Lynnette from she sees in the office complaining from little shortness of breath for the last 4 to 5 days with some cough and phlegm Associated with left lateral chest pain about 7/10 that is worse with coughing and deep breath. Her nurse practitioner Lynnette asked her to get sputum sample and resulted back as MRSA so she got a call from the office to head to the emergency room Currently she is endorsing the same symptoms as above However she denies any specific GI/ symptoms no headache dizziness weakness or numbness She quit smoking years ago with no alcohol or illicit drugs as well She is not on oxygen at home She has a known history of mouth cancer s/p left-sided jaw replacement She does not eat but uses a PEG tube for feeding 2 weeks ago she saw her oncologist and Dr. gastelum her knife finisher and she was doing fine Patient has afebrile in the emergency room She was saturating 90s on 4 L oxygen via nasal cannula Blood pressure is soft On admission she has leukocytosis of 28,000. Will BMP and LFTs were unremarkable as well as INR proBNP is 248 Chest x-ray showing left lower lobe infiltrate suspicious for pneumonia Patient was started on IV vancomycin and Zosyn and normal saline with pulmonary and ID team consult 09/01/2024 This is a 64-year-old female who has been hospitalized for quite some time secondary to bilateral aspiration pneumonia with multiple organisms also noted to have adrenal insufficiency. Patient was recently on high-dose steroids and has transition to Solu-Cortef and having elevated white blood count, likely secondary to leukemoid reaction as patient has been adequately treated with antibiotics with infectious disease following and is being monitored off antibiotic therapy. Patient is afebrile and clinically appears to be doing better. Patient continues on high flow Airvo at 50/50 with respiratory following attempting to wean as tolerated. Patient is using incentive spirometer and encouraged to continue using at least 10 times every hour while awake. Attempt at peer to peer for select specialties was denied at this time due to concerns of increasing white count and upward trend. Hematology following and workup ordered. Review of systems: Constitutional: No reports of fatigue, fever, or chills Cardiovascular: No reports of chest pain or palpitations Respiratory: reports of shortness of breath although no worsening GI: No reports of nausea, vomiting, or diarrhea, tolerating tube feeds : No reports of dysuria or retention Neurovascular: reports of generalized weakness PHYSICAL EXAMINATION: GENERAL: The patient is awake, alert and oriented x 3, thin build, elderly appearing, ill-appearing, cachectic with significant wasting noted. HEENT: Pupils are round and equally reacting to light. EOMI. No scleral icterus. No conjunctival pallor. Normocephalic, atraumatic. No pharyngeal erythema. No thyromegaly. CARDIOVASCULAR: S1 and S2 muffled PULMONARY coarse breath sounds bilaterally, bilateral crackles at the bases ABDOMEN: Soft, nontender, nondistended, normoactive bowel sounds. No palpable organomegaly. Jejunostomy tube seen and tolerating tube feeds thus far MUSCULOSKELETAL: No joint swelling or deformity. EXTREMITIES: No cyanosis, clubbing, improved lower extremity swelling bilaterally NEUROLOGICAL: Alert and oriented x 3, diffusely weak SKIN: No rashes. Pale Assessment: Bilateral pneumonia, aspiration pneumonia, sputum positive for MRSA, Morganella, and group B strep and Rosa, treated and being monitored off antibiotic therapy Sepsis with septic shock requiring pressor support secondary to above Acute hypoxic respiratory failure secondary to above, requiring mechanical ventilation, extubated successfully and on Airvo 50/50 Mild calorie protein malnutrition, maintained on tube feeds History of tongue cancer in 2002 with no recurrence, currently she uses J tube for nutrition COPD, not in acute exacerbation Elevated WBCs, likely leukemoid reaction as patient was on high-dose steroids and has transition to Solu-Cortef. Hematology workup ongoing History of seizure GI prophylaxis DVT prophylaxis Full code Plan: Patient is currently on the stepdown unit out of the ICU maintained on Airvo at 50/50 and attempting to wean as tolerated. Per family they are adjusting the doses slowly and patient is continuously working on incentive spirometer Infectious disease following and patient is maintained closely off antibiotics and has received adequate antibiotic therapy with no clinical appearance of infection. White count in the 30s on an upward trend and hematology was consulted undergoing further leukocytosis workup. Likely leukemoid reaction as patient was continued on high-dose IV steroids for quite some time and has transition to Solu-Cortef for adrenal insufficiency Continue with tube feeds per dietary at a reduced rate and monitor for aspiration precautions. Recommend head of the bed elevated 30 to 45 degrees at all times. There was concerns for J-tube leaking and surgery is following Insurance denied select specialties recommending peer to peer which was attempted although denied as they were concerned for upward trend of white count with continued underlying infection. Explained this is likely leukemoid reaction given high-dose steroids and they would like to see further downward tr end and possibly reevaluating insurance authorization for select specialties Family at the bedside and discussing if there is still a need for select specialties. Patient continues on high flow oxygen at 50/50 and will need to be weaned off Airvo prior to discharging to [facility] and/or home with home care. Overall prognosis is extremely guarded at this time The impression and plan of care has been dictated by Annika Gayle, Nurse Practitioner as directed. Dr. Aj MD I have performed a history and examination and MDM of this patient, discussed the same with the dictator, and agree with the dictator's assessment and plan as written ,documented as a scribe. Based on total visit time, I have performed more than 50% of the visit. Objective - Vital Signs Vital signs: Vital Signs Temp 98 F 09/01/24 08:00 Pulse 80 09/01/24 09:05 Resp 16 09/01/24 08:00 BP 156/71 09/01/24 08:00 Pulse Ox 92 L 09/01/24 08:00 FiO2 50 09/01/24 08:49 Intake & Output 08/31/24 09/01/24 09/01/24 18:59 06:59 18:59 Intake Total 145 155 55 Output Total 011 085 9034 Balance -892 -145 1151 Weight 50.5 kg Intake: IV 10 20 10 Invasive Line 10 10 20 10 Tube Feeding 135 135 45 Output: Urine 826 579 0370 Stool 6 Other: Voiding Method Indwelling Catheter Indwelling Catheter Indwelling Catheter # Bowel Movements 1 ABP, PAP, CO, CI - Last Documented Arterial Blood Pressure 129/56 - Labs CBC & Chem 7: 08/31/24 06:48 08/31/24 06:48 Labs: Abnormal Lab Results - Last 24 Hours (Table) 08/31/24 08/31/24 08/31/24 Range/Units 06:48 17:32 23:55 POC Glucose (mg/dL) 170 H 134 H (70-110) mg/dL Cortisol <1.5 L (3.1-22.4) UG/DL 09/01/24 09/01/24 Range/Units 05:53 11:13 POC Glucose (mg/dL) 151 H 140 H (70-110) mg/dL Cortisol (3.1-22.4) UG/DL
[2024-09-02 06:10] LABS: Glucose,Whole Blood 163 mg/dL (70-110)
--- NOTE | 2024-09-02 08:26 | XR ---
EXAMINATION TYPE: XR chest 1V DATE OF EXAM: 09/02/2024 COMPARISON: 08/28/2024 CLINICAL INDICATION: Female, 64 years old with history of pneumonia; TECHNIQUE: Single frontal view of the chest is obtained. FINDINGS: Leftward patient rotation IS unremarkable, and mediastinal contours. There appears to be a surgical s taple at the thoracic inlet. Heart mildly enlarged. Mild hyperinflation. Diffuse interstitial and pat ananya bilateral opacities especially in the mid and lower lungs similar. There may be some shifting opa cities in the interval. IMPRESSION: Mild cardiomegaly, COPD, and patchy airspace disease with some interval shifting opaciti es, overall stable. Consider CHF and/or multifocal pneumonia. [facility], , 09/02/2024 8:24 AM
[2024-09-02 08:44] LABS: Basophils % (A) 0 %; Eosinophils % (A) 0 %; HCT 32.7 % (34.0-46.0); HGB 10.7 gm/dL (11.4-16.0); Hypochromasia Moderate; Lymphocytes # (A) 1.2 k/uL (1.0-4.8); Lymphocytes % (A) 4 %; MCH 30.4 pg (25.0-35.0); MCHC 32.8 g/dL (31.0-37.0); MCV 92.9 fL (80.0-100.0); Mean Platelet Volume 8.7; Monocytes # (A) 0.9 k/uL (0-1.0); Monocytes % (A) 3 %; Neutrophils % (A) 92 %; Platelet Count 296 k/uL (150-450); RBC 3.52 m/uL (3.80-5.40); RDW 15.5 % (11.5-15.5); WBC 27.2 k/uL (3.8-10.6)
[2024-09-02 09:02] LABS: African American GFR (CKD) >90 (>60 ml/min/1.73 sqM); Anion Gap 4 mmol/L; Blood Urea Nitrogen 24 mg/dL (7-17); Calcium 9.1 mg/dL (8.4-10.2); Carbon Dioxide 36 mmol/L (22-30); Chloride 96 mmol/L (98-107); Glucose 133 mg/dL (74-99); Magnesium 2.2 mg/dL (1.6-2.3); Non-African American GFR(CKD) >90 (>60 ml/min/1.73 sqM); Potassium 4.1 mmol/L (3.5-5.1); Sodium 136 mmol/L (137-145)
[2024-09-02 09:30] VITALS: RESP 16; TEMP 97.5
--- NOTE | 2024-09-02 10:35 | P.DS ---
Providers Date of admission: 08/06/24 12:27 Expected date of discharge: 09/02/24 Attending physician: Wilder Dueñas MD Consults: 08/06/24 12:21 Consult Physician Routine Consulting Provider: Albaro Thompson Consult Reason/Comments: Pneumonia Do you want consulting provider notified?: Yes Consult Physician Routine Consulting Provider: Ana Spicer Consult Reason/Comments: Pneumonia Do you want consulting provider notified?: Yes 08/09/24 16:35 Consult Physician Routine Consulting Provider: [facility] Consult Reason/Comments: BNP 2100 Do you want consulting provider notified?: Yes 08/30/24 12:35 Consult Physician Routine Consulting Provider: Kaitlynn Sanchez Consult Reason/Comments: peg tube continuing to leak Do you want consulting provider notified?: Yes 08/31/24 14:13 Consult Physician Routine Consulting Provider: Eda Davis Consult Reason/Comments: elevated wbc not trending down Do you want consulting provider notified?: Yes, Notify in am Primary care physician: Yrn Lawton [facility] Course: Final diagnosis Bilateral pneumonia, aspiration pneumonia, sputum positive for MRSA, Morganella, and group B strep and Rosa, treated and being monitored off antibiotic therapy Sepsis with septic shock requiring pressor support secondary to above Acute hypoxic respiratory failure secondary to above, requiring mechanical ventilation, extubated successfully and on Airvo 50/50, weaning as tolerated Mild calorie protein malnutrition, maintained on tube feeds History of tongue cancer in 2002 with no recurrence, currently she uses J tube for nutrition COPD, not in acute exacerbation Elevated WBCs, likely leukemoid reaction as patient was on high-dose steroids and has transition to Solu-Cortef. Hematology workup ongoing History of seizure GI prophylaxis DVT prophylaxis Full code Discharge disposition Patient is being discharged in a stable condition with guarded prognosis to select specialties Patient will follow-up with in the outpatient setting upon discharge. Patient is to continue with high flow nasal cannula and working on weaning. Patient to follow-up with hematology/oncology outpatient along with pulmonary. Total time taken is greater than 35 minutes. Hospital course This is a 64-year-old female who was recently admitted for increasing shortness of breath that had been ongoing with continued cough and congestion being closely monitored and concern for aspiration pneumonia. 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 Patient highly suspected to have aspiration pneumonia and sputum culture was positive for MRSA, Morganella, group B strep and Rosa. Patient was on prolonged antibiotics with infectious disease following and has completed antibiotic course being closely monitored off antibiotic therapy. Patient with significant weakness and prolonged hospitalization recommending transfer to select specialties for continued ongoing respiratory care and physical therapy. Initially [id number] was denied although appealed and was approved as they were concerned of possible new ongoing infection. Patient was on high-dose steroids and [facility] and recommend tapering outpatient with concerns of adrenal insufficiency. Patient has been instructed and has been working on her incentive spirometer at least 10 times every hour while awake. Patient is clinically improving although continues with significant weakness and would strongly recommend aggressive physical therapy as family wants to take patient home. Patient has been cleared by consultations. Please refer to consultation notes for further HPI. Physical exam: Gen: This is a 64-year-old female who is awake, alert and oriented x 3, baseline, lethargic and extremely weak at times although more awake today, well- developed, thin built, cachectic, appears older than stated age HEENT: Head is atraumatic, normocephalic. Pupils equal, round. Sclerae is anicteric. NECK: Supple. No JVD. No lymphadenopathy. No thyromegaly. LUNGS: Diminished breath sounds bilaterally otherwise some coarse scattered rhonchi. No intercostal retractions. HEART: S1, S2 are muffled ABDOMEN: Soft. J-tube noted. Bowel sounds are present. No masses. No tenderness. EXTREMITIES: No pedal edema. No calf tenderness. Mild edema, nonpitting, improved from previous NEUROLOGICAL: Patient is awake, alert and oriented x3. Cranial nerves 2 through 12 are grossly intact. Diffusely weak Please refer to medication reconciliation sheet for a list of medications. The impression and plan of care has been dictated by Annika Gayle, Nurse Practitioner as directed. Dr. Aj MD I have performed a history and examination and MDM of this patient, discussed the same with the dictator, and agree with the dictator's assessment and plan as written ,documented as a scribe. Based on total visit time, I have performed more than 50% of the visit. Patient Condition at Discharge: Fair Plan - Discharge Summary Discharge Rx Participant: Yes New Discharge Prescriptions: No Action Aspirin 81 mg PEG/G-TUBE DAILY predniSONE See Taper PEG/G-TUBE DIRECTED Cefuroxime [Ceftin] 250 mg PEG/G-TUBE BID Gabapentin Oral Soln [Neurontin Oral Soln] 900 mg PEG/G-TUBE TID Apixaban [Eliquis] 5 mg PEG/G-TUBE BID Levothyroxine Sodium [Synthroid] 75 mcg PEG/G-TUBE HS oxyCODONE HCL 10 - 15 mg PEG/G-TUBE Q4H DULoxetine HCL [Cymbalta] 30 mg PEG/G-TUBE DAILY Discharge Medication List Apixaban [Eliquis] 5 mg PEG/G-TUBE BID 06/23/21 [History] Aspirin 81 mg PEG/G-TUBE DAILY 06/23/21 [History] Gabapentin Oral Soln [Neurontin Oral Soln] 900 mg PEG/G-TUBE TID 06/23/21 [History] Levothyroxine Sodium [Synthroid] 75 mcg PEG/G-TUBE HS 06/23/21 [History] Cefuroxime [Ceftin] 250 mg PEG/G-TUBE BID 08/06/24 [History] DULoxetine HCL [Cymbalta] 30 mg PEG/G-TUBE DAILY 08/06/24 [History] oxyCODONE HCL 10 - 15 mg PEG/G-TUBE Q4H 08/06/24 [History] predniSONE See Taper PEG/G-TUBE DIRECTED 08/06/24 [History] Follow up Appointment(s)/Referral(s): Yrn Lawton MD [Primary Care Provider] - 1-2 days
[2024-09-02 12:02] LABS: Glucose,Whole Blood 155 mg/dL (70-110)
[2024-09-02 12:30] VITALS: BP 164/72; PULSE 66
--- NOTE | 2024-09-02 14:42 | P.PN ---
Subjective Progress Note Date: 09/02/24 63-year-old female patient with past medical history of oral cancer and previous radical neck dissection followed by radiation therapy and reconstructive surgery and the patient suffers from chronic dysphagia and the patient has PEG tube. The patient also has previous history of DVT/pulmonary embolism maintained on anticoagulation. She has history of atrial fibrillation, hypothyroidism and seizure disorders. For now, the patient is in the intensive care unit for an acute hypoxic respiratory failure. The patient is currently on Airvo at 50 L with an FiO2 of 50%. The patient is status post ventilator dependent respiratory failure requiring intubation mechanical ventilation for extensive bilateral pneumonia And sputum cultures were positive for Pseudomonas aeruginosa and MRSA and Morganella morganii and no sputum cultures obtained on 08/17/2024. The patient has completed antibiotic course and she is currently off antibiotics. 09/01/2024, the patient is being seen in the medical floor. She is on Airvo at a flow of 50 L with FiO2 50%. Her speech was muffled and the patient had a congested cough. Careful examination of posterior pharynx revealed thick mucus obstructing the posterior pharynx and the posterior oral passages. Bedside suctioning was done and a copious amount of purulent respiratory secretions were aspirated without any major difficulties. The patient was instructed to continue her pulmonary toileting and she was offered a bedside suctioning device and a Yunker. The white cell count from yesterday was at 31 with a hemoglobin 11.2 and a platelet count of 437. Sodium is at 134, BUN is 26 with a creatinine of 0.36. Procalcitonin level was at 0.06 from 08/28/2024. The most recent chest x-ray was from 08/28/2024 showed persistent diffuse left lung and multifocal right lung pulmonary infiltrates which have gradually improved since the time of admission. The patient continues to receive enteral feeding for nutritional support. She remains on anticoagulation with Eliquis. She is on DuoNeb updrafts 4 times a day. She is on IV hydrocortisone 100 mg every 8 hours. Her serum cortisol was quite low. Rest of the medications remain unchanged. She remains on amiodarone 12 mg p.o. daily, metoprolol 12.5 mg p.o. nightly anticoagulation with Eliquis regarding paroxysmal atrial fibrillation. 09/02/2024, the patient is on 10 L of oxygen by nasal cannula. She is coughing adequate amount of purulent respiratory secretions. Noted she completed course of antibiotics. A follow-up chest x-ray was done and this was reviewed and compared to the earlier chest x-rays and there is ongoing cardiomegaly with some patchy airspace disease and some interval improvement in aeration of the lungs bilaterally. The patient otherwise is doing well. She is hemodynamically stable. She is afebrile. She is on 10 L of oxygen by nasal cannula with a pulse ox of 95%. The white cell count is a 27 with a hemoglobin of 10.7 and a platelet count of 296. BUN is 24 with a creatinine of 0.36 and a sodium level of 136. Tolerating enteral feeding for nutritional support. No reported aspiration. Doing adequate pulmonary toileting for now. Objective - Vital Signs Vital signs: Vital Signs Temp 97.5 F L 09/02/24 08:00 Pulse 76 09/02/24 09:22 Resp 16 09/02/24 08:00 BP 179/79 09/02/24 08:00 Pulse Ox 91 L 09/02/24 09:13 FiO2 40 09/02/24 04:33 Intake & Output 09/01/24 09/02/24 09/02/24 18:59 06:59 18:59 Intake Total 110 145 45 Output Total 1206 Balance -1096 145 45 Weight 51 kg Intake: IV 20 10 Invasive Line 10 20 10 Tube Feeding 90 135 45 Output: Urine 1200 Stool 6 Other: Voiding Method Indwelling Catheter Indwelling Catheter Indwelling Catheter ABP, PAP, CO, CI - Last Documented Arterial Blood Pressure 129/56 - Exam GENERAL EXAM: Alert, 63-year-old female, patient is currently on 10 L of oxygen by nasal cannula. No signs of any significant respiratory distress HEAD: Normocephalic and atraumatic EYES: Normal reaction of pupils, equal size. NOSE: Clear with pink turbinates. THROAT: No erythema or exudates. Edentulous, with previous reconstructive surgery. Unable to open her mouth as the patient has jaw dysfunction and scarring in her neck muscles. NECK: No masses, no JVD. Significant neck deformity related to radiation- induced scarring and previous neck surgery. CHEST: No chest wall deformity. LUNGS: Equal air entry with bilateral rhonchi and wheezing with left lower lobe inspiratory crackles. CVS: S1 and S2 normal with no audible murmur, irregular rhythm. No extra heart sounds ABDOMEN: No hepatosplenomegaly, active bowel sounds, no guarding or rigidity. There are two percutaneous feeding tubes. SPINE: No scoliosis or deformity SKIN: No rashes CENTRAL NERVOUS SYSTEM: Neurologically, the patient is awake and alert and the patient does not have any focal neurological deficit. Cranial nerves are essentially intact. EXTREMITIES: There is no peripheral edema, clubbing, or cyanosis. Peripheral pulses are intact. Profound generalized weakness in all 4 extremities - Labs CBC & Chem 7: 09/02/24 07:43 09/02/24 07:43 Labs: Abnormal Lab Results - Last 24 Hours (Table) 09/01/24 09/01/24 09/01/24 Range/Units 10:32 11:13 16:50 WBC (3.8-10.6) k/uL RBC (3.80-5.40) m/uL Hgb (11.4-16.0) gm/dL Hct (34.0-46.0) % Neutrophils # (1.3-7.7) k/uL Sodium (137-145) mmol/L Chloride (98-107) mmol/L Carbon Dioxide (22-30) mmol/L BUN (7-17) mg/dL Creatinine (0.52-1.04) mg/dL Glucose (74-99) mg/dL POC Glucose (mg/dL) 140 H 170 H (70-110) mg/dL Iron 21 L (50-170) UG/DL % Saturation 8.30 L (12.00-45.00) Transferrin 181.0 L (204.0-354.0) mg/dL Ferritin 395.0 H (10.0-291.0) ng/mL 09/01/24 09/02/24 09/02/24 Range/Units 20:08 00:09 06:08 WBC (3.8-10.6) k/uL RBC (3.80-5.40) m/uL Hgb (11.4-16.0) gm/dL Hct (34.0-46.0) % Neutrophils # (1.3-7.7) k/uL Sodium (137-145) mmol/L Chloride (98-107) mmol/L Carbon Dioxide (22-30) mmol/L BUN (7-17) mg/dL Creatinine (0.52-1.04) mg/dL Glucose (74-99) mg/dL POC Glucose (mg/dL) 166 H 141 H 163 H (70-110) mg/dL Iron (50-170) UG/DL % Saturation (12.00-45.00) Transferrin (204.0-354.0) mg/dL Ferritin (10.0-291.0) ng/mL 09/02/24 09/02/24 Range/Units 07:43 07:43 WBC 27.2 H (3.8-10.6) k/uL RBC 3.52 L (3.80-5.40) m/uL Hgb 10.7 L (11.4-16.0) gm/dL Hct 32.7 L (34.0-46.0) % Neutrophils # 25.0 H (1.3-7.7) k/uL Sodium 136 L (137-145) mmol/L Chloride 96 L (98-107) mmol/L Carbon Dioxide 36 H (22-30) mmol/L BUN 24 H (7-17) mg/dL Creatinine 0.34 L (0.52-1.04) mg/dL Glucose 133 H (74-99) mg/dL POC Glucose (mg/dL) (70-110) mg/dL Iron (50-170) UG/DL % Saturation (12.00-45.00) Transferrin (204.0-354.0) mg/dL Ferritin (10.0-291.0) ng/mL Assessment and Plan Plan: Acute hypoxic respiratory failure secondary to bilateral pneumonia with subsequent aspiration. The patient is currently intubated on mechanical ventilator. The patient was intubated on 08/12/2024. Extubated on 08/21/2024. Cultures from 08/17/2023 were positive for MRSA, Pseudomonas aeruginosa and Morganella and the patient completed the course of antibiotics. Follow-up chest x-ray shows residual bilateral pulmonary filtration. Repeat chest x-ray from today shows interval improvement in aeration of both lungs with improvement of bilateral pulmonary filtrates. Mucous plugs occupying the posterior oropharynx and obstructing the posterior pharyngeal passages and bedside suctioning was done, the patient is undergoing adequate pulmonary toileting for now Bilateral lower lobe pneumonia, polymicrobial, initially thought to be aspiration related and subsequently a hospital-acquired component as the patient also showed Pseudomonas aeruginosa in addition to Morganella and MRSA. Sepsis with secondary bilateral pneumonia, recovered Acute leukocytosis, secondary to above, procalcitonin level is not elevated Paroxysmal atrial fibrillation currently on a combination of metoprolol, amiodarone and anticoagulation with Eliquis History of recurrent aspiration pneumonia and MRSA pneumonia. 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 Nothing by mouth, the patient receiving enteral feeding for nutritional support via PEG tube. 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 Will follow
--- NOTE | 2024-09-02 15:10 | P.PN ---
Subjective Progress Note Date: 09/02/24 SURGICAL PROGRESS NOTE CHIEF COMPLAINT: Respiratory failure HISTORY OF PRESENT ILLNESS: Patient regular medical floor. Surgical service following in regards to leaking around the J-tube. Patient is tolerating tube feeds. Surgeon inflated J-tube balloon at bedside due to leaking over the weekend. PHYSICAL EXAM: VITAL SIGNS: Reviewed. GENERAL: Intubated ABDOMEN: Soft. Nondistended. Nontender. PEG tube site clean dry and intact and mild bilious/tube feed drainage around J-tube ASSESSMENT: 1. Clogged jejunostomy tube and nausea status post J-tube exchange at bedside 2. Aspiration pneumonia 3. 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 Drainage around PEG tube site has resolved PLAN: -No surgical intervention planned -Minimal drainage around J-tube. Continue to change dressing. Continue tube feeds -Agree with discharge to select specialty Physician In Home Aide note has been reviewed by physician. Signing provider agrees with the documented findings, assessment, and plan of care. Attestation Patient seen and examined at bedside. Chief complaint of respiratory failure. No significant drainage from around tube sites. Continue with tube feeding. Continue medical management. Kaitlynn Sanchez DO Objective - Vital Signs Vital signs: Vital Signs Temp 97.5 F L 09/02/24 08:00 Pulse 66 09/02/24 12:00 Resp 16 09/02/24 12:00 BP 164/72 09/02/24 12:00 Pulse Ox 95 09/02/24 12:00 FiO2 40 09/02/24 04:33 Intake & Output 09/01/24 09/02/24 09/02/24 18:59 06:59 18:59 Intake Total 110 145 45 Output Total 1206 700 Balance -1096 145 -655 Weight 51 kg Intake: IV 20 10 Invasive Line 10 20 10 Tube Feeding 90 135 45 Output: Urine 1200 700 Stool 6 Other: Voiding Method Indwelling Catheter Indwelling Catheter Indwelling Catheter ABP, PAP, CO, CI - Last Documented Arterial Blood Pressure 129/56 - Labs CBC & Chem 7: 09/02/24 07:43 09/02/24 07:43 Labs: Abnormal Lab Results - Last 24 Hours (Table) 09/01/24 09/01/24 09/01/24 Range/Units 10:32 16:50 20:08 WBC (3.8-10.6) k/uL RBC (3.80-5.40) m/uL Hgb (11.4-16.0) gm/dL Hct (34.0-46.0) % Neutrophils # (1.3-7.7) k/uL Sodium (137-145) mmol/L Chloride (98-107) mmol/L Carbon Dioxide (22-30) mmol/L BUN (7-17) mg/dL Creatinine (0.52-1.04) mg/dL Glucose (74-99) mg/dL POC Glucose (mg/dL) 170 H 166 H (70-110) mg/dL Iron 21 L (50-170) UG/DL % Saturation 8.30 L (12.00-45.00) Transferrin 181.0 L (204.0-354.0) mg/dL Ferritin 395.0 H (10.0-291.0) ng/mL 09/02/24 09/02/24 09/02/24 Range/Units 00:09 06:08 07:43 WBC 27.2 H (3.8-10.6) k/uL RBC 3.52 L (3.80-5.40) m/uL Hgb 10.7 L (11.4-16.0) gm/dL Hct 32.7 L (34.0-46.0) % Neutrophils # 25.0 H (1.3-7.7) k/uL Sodium (137-145) mmol/L Chloride (98-107) mmol/L Carbon Dioxide (22-30) mmol/L BUN (7-17) mg/dL Creatinine (0.52-1.04) mg/dL Glucose (74-99) mg/dL POC Glucose (mg/dL) 141 H 163 H (70-110) mg/dL Iron (50-170) UG/DL % Saturation (12.00-45.00) Transferrin (204.0-354.0) mg/dL Ferritin (10.0-291.0) ng/mL 09/02/24 09/02/24 Range/Units 07:43 12:01 WBC (3.8-10.6) k/uL RBC (3.80-5.40) m/uL Hgb (11.4-16.0) gm/dL Hct (34.0-46.0) % Neutrophils # (1.3-7.7) k/uL Sodium 136 L (137-145) mmol/L Chloride 96 L (98-107) mmol/L Carbon Dioxide 36 H (22-30) mmol/L BUN 24 H (7-17) mg/dL Creatinine 0.34 L (0.52-1.04) mg/dL Glucose 133 H (74-99) mg/dL POC Glucose (mg/dL) 155 H (70-110) mg/dL Iron (50-170) UG/DL % Saturation (12.00-45.00) Transferrin (204.0-354.0) mg/dL Ferritin (10.0-291.0) ng/mL
[2024-09-03 04:21] LABS: Methylmalonic Acid 0.59 umol/L (<0.40)
--- NOTE | 2024-09-03 16:25 | CDI ---
Documentation Clarification Form Date: 09/03/2024 04:03:24 PM From: Melinda Matias Phone: Admit Date: 08/06/2024 12:27:00 PM Patient Name: Jessica Bobo Visit Number: [id number] Discharge Date: 09/02/2024 12:54:00 PM ATTENTION: The Clinical Documentation Specialists (CDI) and [facility] Coding Staff appreciate your assistance in clarifying documentation. Please respond to the clarification below the line at the bottom and electronically sign. The CDI & [facility] Coding staff will review the response and follow-up if needed. Please note: Queries are made part of the Legal Health Record. If you have any questions, please contact the author of this message via ITS. Doctor/Provider: Wilder E Sheet Your patient has the documentation of some component ofcongestive heart failure per Progress Note 08/24 and following notes. Based on this information and the findings below, is there an additional diagnosis that is clinically appropriate for this patient? History/Risk Factors: 63yo F, Lasha PNA, asp PNA w MRSA, Morganella, group B strepandCandida, sepsiswithseptic shockrequiring pressor, AHRF on vent >96hrs, mild PCM/cachexia w PEG, AECOPD, Hx larynx &tongue cancer,leukemoid reaction Clinical Indicators: VS/Pulse OX: on vent BNP: 08/06 248 08/09 2100 08/10 3910 Echo: Hyperdynamic LV with LVEF 65%. No obviousregional wall motionabnormality. Mild biatrialdilatation. No significantvalvulardysfunctionother than mild to moderate TR Chest X Ray: 08/21 Heart/mediastinum: Cardiomediastinal silhouette is unremarkable. 08/25 Persistentdiffuse left and multifocal rt lung acuteinfiltrates and/oredema. No significant change from most recentstudy. 08/27: Persistentdiffuse left lung and multifocal right lung acute infiltratesand/oredema. Some improvement in the left upper lung is thought present from one day earlier. Treatment: monitored Is there an additional diagnosis that is clinically appropriate for this patient? [ ] Systolic Heart Failure (reduced EF) [ ] Acute [ ] Acute on Chronic [ ] Diastolic Heart Failure (preserved EF) [ ] Acute [ ] Acute on Chronic [ ] Systolic & Diastolic Heart Failure [ ] Acute [ ] Acute on Chronic [ ] Other, please specify [ x ] Unable to determine (Template Last Revised: September 2020) MTDD
== END 2024-09-02 12:54 | DRG 870 ==
LOC: EC 09:23 → 4SSUR 12:27 → 2SICU 08-10 03:09 → 3SCARD 08-30 12:36
PROVIDERS: ADMIT Internal Medicine; ATTEND Internal Medicine
PROC: 3E0H76Z Introduction of Nutritional Substance into Lower GI, Via Natural or Artificial Opening (ICD-10-PCS; 2024-08-07)
PROC: 5A09357 Assistance with Respiratory Ventilation, Less than 24 Consecutive Hours, Continuous Positive Airway Pressure (ICD-10-PCS; 2024-08-11)
PROC: 5A1955Z Respiratory Ventilation, Greater than 96 Consecutive Hours (ICD-10-PCS; principal; 2024-08-12)
PROC: 0BH18EZ Insertion of Endotracheal Airway into Trachea, Via Natural or Artificial Opening Endoscopic (ICD-10-PCS; 2024-08-12)
PROC: 06HY33Z Insertion of Infusion Device into Lower Vein, Percutaneous Approach (ICD-10-PCS; 2024-08-12)
PROC: 04HY32Z Insertion of Monitoring Device into Lower Artery, Percutaneous Approach (ICD-10-PCS; 2024-08-12)
PROC: 4A133B1 Monitoring of Arterial Pressure, Peripheral, Percutaneous Approach (ICD-10-PCS; 2024-08-12)
PROC: 4A133J1 Monitoring of Arterial Pulse, Peripheral, Percutaneous Approach (ICD-10-PCS; 2024-08-12)
PROC: 3E043XZ Introduction of Vasopressor into Central Vein, Percutaneous Approach (ICD-10-PCS; 2024-08-12)
PROC: 0B9B8ZZ Drainage of Left Lower Lobe Bronchus, Via Natural or Artificial Opening Endoscopic (ICD-10-PCS; 2024-08-12)
PROC: 0B948ZZ Drainage of Right Upper Lobe Bronchus, Via Natural or Artificial Opening Endoscopic (ICD-10-PCS; 2024-08-12)
PROC: 0B988ZZ Drainage of Left Upper Lobe Bronchus, Via Natural or Artificial Opening Endoscopic (ICD-10-PCS; 2024-08-12)
PROC: 0B918ZZ Drainage of Trachea, Via Natural or Artificial Opening Endoscopic (ICD-10-PCS; 2024-08-12)
PROC: 0B958ZZ Drainage of Right Middle Lobe Bronchus, Via Natural or Artificial Opening Endoscopic (ICD-10-PCS; 2024-08-12)
PROC: 0B938ZZ Drainage of Right Main Bronchus, Via Natural or Artificial Opening Endoscopic (ICD-10-PCS; 2024-08-12)
PROC: 0B978ZZ Drainage of Left Main Bronchus, Via Natural or Artificial Opening Endoscopic (ICD-10-PCS; 2024-08-12)
PROC: 0B968ZZ Drainage of Right Lower Lobe Bronchus, Via Natural or Artificial Opening Endoscopic (ICD-10-PCS; 2024-08-12)
PROC: 0DPDXUZ Removal of Feeding Device from Lower Intestinal Tract, External Approach (ICD-10-PCS; 2024-09-02)
PROC: 0DHA3UZ Insertion of Feeding Device into Jejunum, Percutaneous Approach (ICD-10-PCS; 2024-09-02)
DX: A41.02 Sepsis due to Methicillin resistant Staphylococcus aureus (principal); B37.1 Pulmonary candidiasis; R65.21 Severe sepsis with septic shock; J96.01 Acute respiratory failure with hypoxia; J15.212 Pneumonia due to Methicillin resistant Staphylococcus aureus; J69.0 Pneumonitis due to inhalation of food and vomit; E44.1 Mild protein-calorie malnutrition; I48.0 Paroxysmal atrial fibrillation; G40.909 Epilepsy, unspecified, not intractable, without status epilepticus; J44.0 Chronic obstructive pulmonary disease with (acute) lower respiratory infection; I11.0 Hypertensive heart disease with heart failure; E03.9 Hypothyroidism, unspecified; E87.4 Mixed disorder of acid-base balance; R64 Cachexia; E27.40 Unspecified adrenocortical insufficiency; R04.2 Hemoptysis; K94.13 Enterostomy malfunction; J44.1 Chronic obstructive pulmonary disease with (acute) exacerbation; T88.4XXA Failed or difficult intubation, initial encounter; T17.290A Other foreign object in pharynx causing asphyxiation, initial encounter; R13.12 Dysphagia, oropharyngeal phase; B96.5 Pseudomonas (aeruginosa) (mallei) (pseudomallei) as the cause of diseases classified elsewhere; R19.7 Diarrhea, unspecified; B95.4 Other streptococcus as the cause of diseases classified elsewhere; B96.89 Other specified bacterial agents as the cause of diseases classified elsewhere; K11.7 Disturbances of salivary secretion; Z85.21 Personal history of malignant neoplasm of larynx; D72.823 Leukemoid reaction; T38.0X5A Adverse effect of glucocorticoids and synthetic analogues, initial encounter; Z79.01 Long term (current) use of anticoagulants; Z79.82 Long term (current) use of aspirin; Z87.891 Personal history of nicotine dependence; Z79.899 Other long term (current) drug therapy; Z79.890 Hormone replacement therapy; Z88.2 Allergy status to sulfonamides; Z88.0 Allergy status to penicillin; Z85.810 Personal history of malignant neoplasm of tongue; Z92.3 Personal history of irradiation; Z92.21 Personal history of antineoplastic chemotherapy; Z86.711 Personal history of pulmonary embolism; Z68.20 Body mass index [BMI] 20.0-20.9, adult; Z86.718 Personal history of other venous thrombosis and embolism; Z85.89 Personal history of malignant neoplasm of other organs and systems; I50.9 Heart failure, unspecified
CPT/HCPCS: 36415; 36600; 71045; 71046; 71250; 74018; 74019; 74177; 80048; 80053; 80061; 80202; 81270; 82533; 82565; 82607; 82728; 82746; 82747; 82803; 82805; 83540; 83550; 83605; 83735; 83880; 83921; 84132; 84145; 84443; 84484; 85025; 85027; 85610; 85730; 87040; 87070; 87075; 87077; 87186; 87205; 87324; 87390; 87449; 87635; 93005; 93306; 93970; 94002; 94003; 94640; 94660; 94667; 94668; 94760; 96365; 96366; 96367; 96375; 99285